=== PATIENT | male | born 1965 | race Caucasian/White ===

== ENCOUNTER → 2017-06-08 09:16 | Outpatient (CLI) | payer BC, SELFPAY ==
[2017-06-08 10:30] LABS: Absolute Lymphocyte Count 1.01 X10^3/ul (0.83-4.51); Basophil# 0.03 X10^3/uL; Basophil% 0.5 % (0-1); Eosinophil# 0.46 X10^3/uL; Eosinophils% 7.4 % (0-5); Hemoglobin 14.6 g/dl (13.0-16.5); Lymphocyte # 1.01 X10^3/ul (4.0); Lymphocyte % 16.2 % (19-41); Mean Corp Hgb Conc 32.4 g/gl (32-36); Mean Corpuscular Volume 86.2 fL (80-94); Mean Platelet Vol. 10.2 fl (6.2-12.0); Monocyte# 0.67 X10^3/uL; Monocyte% 10.7 % (0-10); Neutrophil # 4.04 X10^3/uL (2.7-7.7); Neutrophil % 64.7 % (47-70); Platelet Count 182 K/mm3 (150-450); RBC Distribution Width CV 14.9 % (11.6-14.6); RBC Distribution Width SD 47.1 fl (35.1-43.9); Red Blood Count 5.22 M/mm3 (4.6-6.2); White Blood Count 6.2 K/mm3 (4.4-11.0)
[2017-06-08 10:32] LABS: POSITIVE COUNT NO; POSITIVE DIFFERENTIAL NO; POSITIVE MORPHOLOGY NO
[2017-06-08 10:54] LABS: T3 Uptake 35 % (33-40); T4 Total, Thyroxin 8.9 ug/dL (4.5-12.1); T7 / Free Thyroxin Index 3.1 (1.4-4.5)
[2017-06-08 16:29] LABS: Erythrocyte Sedimentation Rate 25 mm/hr (0-20)
[2017-06-09 09:45] LABS: T3 Total - Triiodothyronine 1.05 ng/mL (0.6-1.81)
[2017-06-10 09:42] LABS: ANTINUCLEAR ANTIBODIES DIRECT Negative (Negative); Anti-Thyroglobulin AB < 1.0 IU/mL (0.0-0.9); Thyroglobulin, Serum Qt. 16.7 ng/mL (1.4-29.2)
[2017-06-11 02:54] LABS: Rapid Plasmin Reagin (RPR) NONREACTIVE (NONREACTIVE)
== END ==
PROVIDERS: Family Provider Family Medicine; PCP Family Medicine
DX: H05.20 Unspecified exophthalmos (principal)
CPT/HCPCS: 36415; 84432; 84436; 84443; 84479; 84480; 85025; 85652; 86038; 86592; 86800

== ENCOUNTER → 2017-06-15 13:07 | Outpatient (CLI) | payer BC, SELFPAY ==
--- NOTE | 2017-06-15 13:45 | MRI_ITS ---
STUDY: MRI ORBITS WITHOUT CONTRAST REASON FOR EXAM: Male, 51 years old. TECHNIQUE: Standardized multiplanar fat and water weighted pulse sequences were obtained. COMPARISON: None. FINDINGS: No evidence for shift of midline structures, mass effect or compression of ventricles noted. No acute intra or extra-axial hemorrhage is seen. No abnormal intracranial fluid collections identified. The basal cisterns are patent. Ventricular system appears unremarkable. Skull base vascular flow voids are patent. Mucous retention cyst in the left maxillary sinus. Air-fluid levels in the right maxillary sinus as well as the sphenoid sinus noted suggestive of acute sinusitis in an appropriate clinical setting. A few nonspecific T2/FLAIR hyperintense foci noted in the subcortical white matter however can be seen in the setting of mild chronic small vessel disease or migraine related changes. Mild edema in the optic nerve sheaths which is a nonspecific finding. No definite evidence for optic neuritis. Extraocular muscles appear symmetric however there is bilateral exophthalmos noted with increased retrobulbar fat contents. Although nonspecific can be seen in the setting of thyroid ophthalmopathy. No discrete orbital mass based on this noncontrast MR examination. No inflammatory fat stranding in the retrobulbar fat. Lacrimal glands appear symmetric. MRI/Orbit Face and Neck (Routine) IMPRESSION: No evidence for acute or subacute ischemic insult. No evidence for intracranial mass or acute hemorrhage No definite evidence for optic neuritis. Extraocular muscles appear symmetric however there is bilateral exophthalmos noted with increased retrobulbar fat contents. Although nonspecific can be seen in the setting of thyroid ophthalmopathy. A few nonspecific T2/FLAIR hyperintense foci noted in the subcortical white matter however can be seen in the setting of mild chronic small vessel disease or migraine related changes. Electronically Signed: Medhat Lee, at 0:26 EST Tel , Service support ,
== END ==
PROVIDERS: Family Provider Family Medicine; PCP Family Medicine
DX: H05.20 Unspecified exophthalmos (principal)
CPT/HCPCS: 70540

== ENCOUNTER → 2017-08-10 10:10 | Outpatient (CLI) | payer BC, SELFPAY ==
[2017-08-10 12:17] LABS: Hemoglobin 14.2 g/dl (13.0-16.5); Mean Corp Hgb Conc 31.6 g/gl (32-36); Mean Corpuscular Hgb 26.6 pg (27.0-32.0); Mean Corpuscular Volume 84.4 fL (80-94); Mean Platelet Vol. 10.4 fl (6.2-12.0); Platelet Count 205 K/mm3 (150-450); RBC Distribution Width CV 15.4 % (11.6-14.6); RBC Distribution Width SD 46.8 fl (35.1-43.9); Red Blood Count 5.33 M/mm3 (4.6-6.2); White Blood Count 6.2 K/mm3 (4.4-11.0)
[2017-08-10 12:26] LABS: ALB/GLOB Ratio 0.9 RATIO (0.9-2.4); AST(SGOT) 10 U/L (15-37); Alanine Aminotransfer ALT/SGPT 22 U/L (16-61); Albumin, Serum 3.4 g/dL (3.2-5.0); Alkaline Phosphatase 57 U/L (45-117); Anion Gap 6 (5-15); BUN 8 mg/dL (7-18); BUN/Creat Ratio 13.1 RATIO (10-20); Calcium,Total 8.8 mg/dL (8.5-10.1); Chloride 104 mmol/L (98-107); Cholesterol 94 mg/dL (200); Creatinine, Serum 0.61 mg/dL (0.70-1.30); EST Glomerular Filtration Rate 148 mL/min (>60); Est Glom Filt Rate - Afr Amer 179 mL/min (>60); Globulin 3.9 g/dL (2.2-4.2); Glucose 132 mg/dL (74-106); High Density Lipoprotein 31 mg/dL; Potassium 4.3 mmol/L (3.5-5.1); Protein, Total 7.3 g/dL (6.4-8.2); Sodium Level 139 mmol/L (136-145); Triglycerides 125 mg/dL; Very Low Density Lipoprotein 25 mg/dL (5-40)
[2017-08-10 12:29] LABS: Scan Indicated on CBC? Y/N NO
== END ==
PROVIDERS: Visit Provider Family Medicine
DX: E11.65 Type 2 diabetes mellitus with hyperglycemia (principal); I48.91 Unspecified atrial fibrillation
CPT/HCPCS: 36415; 80053; 80061; 84443; 85027

== ENCOUNTER → 2017-08-30 08:50 | Outpatient (CLI) | payer BC, SELFPAY ==
[2017-08-30 11:02] LABS: Anion Gap 8 (5-15); BUN 10 mg/dL (7-18); BUN/Creat Ratio 13.3 RATIO (10-20); Calcium,Total 9.1 mg/dL (8.5-10.1); Chloride 100 mmol/L (98-107); Creatinine, Serum 0.75 mg/dL (0.70-1.30); EST Glomerular Filtration Rate 116 mL/min (>60); Est Glom Filt Rate - Afr Amer 141 mL/min (>60); Glucose 186 mg/dL (74-106); Potassium 4.1 mmol/L (3.5-5.1); Sodium Level 137 mmol/L (136-145)
== END ==
PROVIDERS: Family Provider Family Medicine; PCP Family Medicine; Visit Provider Family Medicine
DX: I10 Essential (primary) hypertension (principal)
CPT/HCPCS: 36415; 80048

== ENCOUNTER 2018-01-11 00:52 | Emergency (ER) | payer SELFPAY ==
[2018-01-11 00:53] VITALS: BP 181/97; PULSE 95; RESP 18; TEMP 36.8; O2SAT 95; BMI 43.8
--- NOTE | 2018-01-11 01:04 | CT_ITS ---
STUDY: CT ABDOMEN AND PELVIS WITH CONTRAST REASON FOR EXAM: Male, 52 years old. Right-sided abdominal pain following coughing. RADIATION DOSAGE (If Supplied By Facility): CTDIvol = ( 18.74 ) mGy, DLP = ( 1235.88 ) mGycm TECHNIQUE: Transaxial images were obtained from the dome of the diaphragm to the symphysis pubis without oral contrast. 100 ml of Isovue 300 contrast was administered. Sagittal and coronal images were reconstructed. Individualized dose optimization techniques were used for this CT. COMPARISON: None. FINDINGS: The visualized lung bases are unremarkable. The visualized portions of the heart are within normal limits. There is mild diffuse fatty infiltration of the liver. Normal gallbladder and extrahepatic biliary system. Normal spleen. Normal pancreas. Normal bilateral adrenal glands. Normal right kidney. Normal left kidney. Normal visualized stomach. There are fluid-filled small bowel loops on the left side of the abdomen. The more distal small bowel loops are less distended. There is however no evidence of transition zone. There is fecal retention. There is no evidence of acute diverticulitis. There is non-visualization of the appendix. There is mild atherosclerotic calcification of the abdominal aorta with elongation and tortuosity, but without a demonstrated aneurysm. Normal inferior vena cava. Normal retroperitoneum. Normal urinary bladder. Prostatic calcifications. There is enlargement of the right abdominal rectus muscle compared to the left side measuring about 13 x 6 x 16 cm which could represent hematoma. There are degenerative changes in the lower thoracic spine. CT/Abdomen/Pelvis W IV Cont ONLY IMPRESSION: 1. Large mass in the right lateral anterior abdominal wall likely due to hematoma. 2. Nonspecific mildly dilated fluid-filled small bowel loops on the left side of the abdomen which could be due to mild ileus. Early small bowel obstruction is less likely. 3. Mild fatty infiltration of the liver. 4. Otherwise no demonstrated acute process. Electronically Signed: Franki Guerrero MD at 2:21 EDT Tel , Service support ,
--- NOTE | 2018-01-11 01:09 | ED.VISSUMM ---
- ER Visit Summary Date of Service: 01/11/18 Chief Complaint: Abdominal pain History of Present Illness: The patient is a 52 M who states that he is currently being treated for acute bronchitis with underlying COPD disorder. He is using Augmentin and prednisone. Patient states he has been coughing and today had a coughing fit and had severe pain on the right side of his abdomen and now notes swelling. He states that at rest he feels okay but if he coughs or moves the pain is severe. He is on Coumadin for atrial fibrillation. States his last INR was 2.7 and he has been there for months. Physical Examination: Afebrile vital signs are stable Gen: Well-nourished well-developed morbid obesity Head: Normocephalic atraumatic Eyes: Perrl EOMI ENT: TMs clear no rhinorrhea moist mucous membranes Neck: Supple no lymphadenopathy no JVD nontender CVS: Regular rate rhythm no murmurs normal S1-S2 Respiratory: No distress expiratory wheezes bilaterally chest nontender Abdomen: nondistended normal bowel sounds no masses right rectus sheath region demonstrates a firm tender area more consistent with a hematoma. Back: Nontender Extremity: Nontender no edema Skin: Normal color no rash Neuro: alert orientated ?3 CN II-XII intact normal strength sensation reflexes gait cerebellar Psych: Normal affect normal mood Test Results: Hemoglobin of 15. INR 2.9. CT the abdomen pelvis demonstrates a large rectal sheath hematoma with contrast extravasation most likely representing active bleeding. Emergency Department Course and Treatment: Patient received vitamin K and ice was applied. He also received a DuoNeb. I spoke with surgery (Dr. Bagley) who recommends transfer to tertiary care. Patient chooses [facility]. They were contacted and has been accepted. Impression: 1. Rectus sheath hematoma with active bleeding 2. Coumadin coagulopathy 3. COPD/bronchitis This note was generated with [employer] dictation software. It may contain incorrect words, spelling, and punctuation that were not noted in review of the chart prior to signing ED Disposition - Plan for ED Patient: Chief Complaint: Abd Pain Referrals: Al Mondragon MD [Primary Care Provider] -
--- NOTE | 2018-01-11 01:12 | ED.DCSUM_ITS ---
- ER Visit Summary Date of Service: 01/11/18 Chief Complaint: Abdominal pain History of Present Illness: The patient is a 52 M who states that he is currently being treated for acute bronchitis with underlying COPD disorder. He is using Augmentin and prednisone. Patient states he has been coughing and tod ay had a coughing fit and had severe pain on the right side of his abdomen and now notes swelling. He states that at rest he feels okay but if he coughs or moves the pain is severe. He is on Coumadin for atrial fibrillation. States his last INR was 2.7 and he has been there for months. Physical Examination: Afebrile vital signs are stable Gen: Well-nourished well-developed morbid obesity Head: Normocephalic atraumatic Eyes: Perrl EOMI ENT: TMs clear no rhinorrhea moist mucous membranes Neck: Supple no lymphadenopathy no JVD nontender CVS: Regular rate rhythm no murmurs normal S1-S2 Respiratory: No distress expiratory wheezes bilaterally chest nontender Abdomen: nondistended normal bowel sounds no masses right rectus sheath region demonstrates a firm tender area more consistent with a hematoma. Back: Nontender Extremity: Nontender no edema Skin: Normal color no rash Neuro: alert orientated ?3 CN II-XII intact normal strength sensation reflexes gait cerebellar Psych: Normal affect normal mood Test Results: Hemoglobin of 15. INR 2.9. CT the abdomen pelvis demonstrates a large rectal sheath hematoma with contrast extravasation most likely representing active bleeding. Emergency Department Course and Treatment: Patient received vitamin K and ice was applied. He also received a DuoNeb. I spoke with surgery (Dr. Bagley) who recommends transfer to tertiary care. Patient chooses [facility]. They were contacted and has been accepted. Impression: 1. Rectus sheath hematoma with active bleeding 2. Coumadin coagulopathy 3. COPD/bronchitis This note was generated with [employer] dictation software. It may contain incorrect words, spelling, and punctuation that were not noted in review of the chart prior to signing ED Disposition - Plan for ED Patient: Chief Complaint: Abd Pain Referrals: Al Mondragon MD [Primary Care Provider] -
[2018-01-11 01:26] LABS: Absolute Lymphocyte Count 1.79 X10^3/ul (0.83-4.51); Absolute Neutrophil Count 7.8 X10^3/uL (2.0-7.7); Basophil# 0.05 X10^3/uL; Basophil% 0.4 % (0-1); Eosinophil# 0.48 X10^3/uL; Eosinophils% 4.1 % (0-5); Hematocrit 47.8 % (40-54); Hemoglobin 15.5 g/dl (13.0-16.5); International Normalized Ratio 2.9; Lymphocyte # 1.79 X10^3/ul (4.0); Lymphocyte % 15.3 % (19-41); Mean Corp Hgb Conc 32.4 g/gl (32-36); Mean Corpuscular Hgb 27.1 pg (27.0-32.0); Mean Corpuscular Volume 83.7 fL (80-94); Mean Platelet Vol. 9.4 fl (6.2-12.0); Monocyte# 1.41 X10^3/uL; Monocyte% 12.1 % (0-10); Neutrophil # 7.84 X10^3/uL (2.7-7.7); Neutrophil % 67.2 % (47-70); Platelet Count 227 K/mm3 (150-450); Prothrombin Time (Protime)PT. 30.3 SECONDS (11.7-14.9); RBC Distribution Width CV 14.9 % (11.6-14.6); RBC Distribution Width SD 45.1 fl (35.1-43.9); Red Blood Count 5.71 M/mm3 (4.6-6.2); White Blood Count 11.7 K/mm3 (4.4-11.0)
[2018-01-11 01:27] LABS: Differential Indicated SCAN CRITERIA MET; POSITIVE COUNT NO; POSITIVE DIFFERENTIAL NO; POSITIVE MORPHOLOGY YES
[2018-01-11 01:33] LABS: Anion Gap 7 (5-15); BUN 18 mg/dL (7-18); BUN/Creat Ratio 21.4 RATIO (10-20); Calcium,Total 9.3 mg/dL (8.5-10.1); Chloride 100 mmol/L (98-107); Creatinine, Serum 0.84 mg/dL (0.70-1.30); EST Glomerular Filtration Rate 102 mL/min (>60); Est Glom Filt Rate - Afr Amer 123 mL/min (>60); Estimated Creatinine Clearance 110.81 ml/min; Glucose 286 mg/dL (74-106); Potassium 4.2 mmol/L (3.5-5.1); Sodium Level 136 mmol/L (136-145)
--- NOTE | 2018-01-11 01:49 | EKG12_ITS ---
Test Reason : ABD PAIN Blood Pressure : / mmHG Vent. Rate : 087 BPM Atrial Rate : 125 BPM P-R Int : 000 ms QRS Dur : 162 ms QT Int : 400 ms P-R-T Axes : 000 047 014 degrees QTc Int : 481 ms Atrial fibrillation Right bundle branch block Abnormal ECG Confirmed by YARELY GARCIA, GLORIA ([id number]), senior technical editor JAZZMINE AVILA ([id number] on 01/17/2018 3:26:32 PM Referred By: JERI Confirmed By:GLORIA PRITCHETT MD
[2018-01-11 01:57] LABS: Differential Comment SCANNED
[2018-01-11 02:59] VITALS: PULSE 96; RESP 18
[2018-01-11] MEDS: Ipratropium/Albuterol Sulfate 3 ML AMPUL.NEB INHALATION (02:59)
[2018-01-11 03:41] VITALS: BP 145/71; PULSE 91; RESP 16; O2SAT 93
[2018-01-11 05:14] VITALS: BP 146/86; PULSE 97; RESP 22; O2SAT 97
== END 2018-01-11 05:16 | disposition short-term general hospital (02) ==
PROVIDERS: Emergency Provider Emergency Medicine; Family Provider Family Medicine; PCP Family Medicine
DX: S30.1XXA Contusion of abdominal wall, initial encounter (principal); X58.XXXA Exposure to other specified factors, initial encounter; Y93.9 Activity, unspecified; Y92.9 Unspecified place or not applicable; R79.1 Abnormal coagulation profile; J44.9 Chronic obstructive pulmonary disease, unspecified; I48.91 Unspecified atrial fibrillation; E66.01 Morbid (severe) obesity due to excess calories; I45.10 Unspecified right bundle-branch block; E11.9 Type 2 diabetes mellitus without complications; I10 Essential (primary) hypertension; E78.00 Pure hypercholesterolemia, unspecified; Z79.01 Long term (current) use of anticoagulants; Z79.84 Long term (current) use of oral hypoglycemic drugs; Z79.899 Other long term (current) drug therapy; Z87.891 Personal history of nicotine dependence
CPT/HCPCS: 74177; 80048; 85025; 85610; 93005; 94640; 96365; 99284; J7050; Q9967; A4216; J3490

== ENCOUNTER → 2018-01-17 12:58 | Outpatient (CLI) | payer SELFPAY ==
[2018-01-17 14:00] LABS: Hematocrit 42.4 % (40-54); Hemoglobin 13.5 g/dl (13.0-16.5); Mean Corp Hgb Conc 31.8 g/gl (32-36); Mean Corpuscular Volume 84.8 fL (80-94); Mean Platelet Vol. 10.1 fl (6.2-12.0); Platelet Count 249 K/mm3 (150-450); RBC Distribution Width CV 15.7 % (11.6-14.6); RBC Distribution Width SD 47.5 fl (35.1-43.9); White Blood Count 9.1 K/mm3 (4.4-11.0)
[2018-01-17 14:01] LABS: Scan Indicated on CBC? Y/N NO
[2018-01-17 14:07] LABS: Prothrombin Time (Protime)PT. 13.1 SECONDS (11.7-14.9)
== END ==
PROVIDERS: Family Provider Family Medicine; PCP Family Medicine; Referring Provider Family Medicine; Visit Provider Family Medicine
DX: I48.91 Unspecified atrial fibrillation (principal); S30.1XXA Contusion of abdominal wall, initial encounter
CPT/HCPCS: 36415; 85027; 85610

== ENCOUNTER → 2018-03-14 08:58 | Outpatient (CLI) | payer OTHER, SELFPAY ==
--- NOTE | 2018-03-14 09:11 | US_ITS ---
STUDY: ABDOMINAL ULTRASOUND - RIGHT UPPER QUADRANT REASON FOR VISIT: Male, 52 years old. Hematoma TECHNIQUE: Ultrasound evaluation of the right upper quadrant was performed with real-time and static salomon-scale imaging. TECHNICAL QUALITY: Adequate. COMPARISON: None. FINDINGS: There is a large hypoechoic area noted within the right rectus sheath measuring approximately 8 x 8.5 x 1.3 cm consistent with known intramuscular hematoma This has decreased in size since prior study US/Abdomen Limited IMPRESSION: Persistent large intramuscular hematoma within the right lateral rectus sheath with interval improvement since previous exam Electronically Signed: Nader Chaparro MD at 22:43 EST , Service support ,
--- OUTSIDE RECORDS SUMMARY | 2018-05-07 11:47 | XMS RPT_ITS ---
:1965 Author Organization OHIP Support Name Relationship Address Phone KENNETHMANGO Unavailable [address] + [place] [address] [facility] Unavailable [address] + [place] [address] VICARS, PAT Unavailable [address] + [place] [address] MANGO COOPER Unavailable [address] + [place] [address] [facility] Unavailable [address] + [place] [address] VICARS, PAT Unavailable [address] + [place] [address] MANGO RUIZ Unavailable [address] + [place] [address] MANGO RUIZ Unavailable [address] + [place] [address] MARIA DE JESUS RUIZ Unavailable Unavailable Unavailable MANGO COOPER Unavailable [address] + [place] [address] [facility] Unavailable [address] + [place] [address] VICARS, PAT Unavailable [address] + [place] [address] LIUDMILA LOO Unavailable [address] + [place] [address] MANGO COOPER Unavailable [address] [phone] [place] [address] VICARS, PAT Unavailable [address] + [place] [address] LIUDMILA LOO Unavailable [address] + [place] [address] COOPER, MANGO Unavailable [address] [phone] [place] [address] VICARS, PAT Unavailable [address] + [place] [address] LIUDMILA LOO Unavailable [address] + [place] [address] COOPER, MANGO Unavailable [address] [phone] [place] [address] VICARS, PAT Unavailable [address] + [place] [address] LIUDMILA LOO Unavailable [address] + [place] [address] COOPER, MANGO Unavailable [address] + [place] [address] VICARS, PAT Unavailable [address] + [place] [address] Care Team Providers Name Role Phone LINDA MONDRAGON Primary Care Unavailable CONSULT, SURGERY - GENERAL (EMERGENT) Consulting Unavailable LORA RAHMAN Admitting Unavailable LORA RAHMAN Attending Unavailable GODFREY DIAMOND Attending Unavailable GODFREY DIAMOND Attending Unavailable GODFREY DIAMOND Referring Unavailable Linda Mondragon Primary Care Unavailable GERARDO REN Attending Unavailable GERARDO REN Referring Unavailable GERARDO REN Attending Unavailable GERARDO REN Referring Unavailable Linda Mondragon Primary Care Unavailable Linda Mondragon Attending Unavailable Linda Mondragon Attending Unavailable Linda Mondragon Primary Care Unavailable Linda Mondragon Primary Care Unavailable Ehsan Rangel Attending Unavailable Linda Mondragon Attending Unavailable Linda Mondragon Referring Unavailable Linda Mondragon Primary Care Unavailable Linda Mondragon Attending Unavailable Linda Mondragon Referring Unavailable Linda Mondragon Primary Care Unavailable PROBLEMS PROBLEMS DATE TYPE CONDITION / CODE ATTENDING STATUS SOURCE 01/17/2018 Unknown I48.91 - Myesha Mondragon Unspecified atrial [facility] fibrillation / Hospital I48.91(ICD-10) Repository 01/17/2018 Unknown S36.92XA - Giancarlo [facility] Cont[facility] Rep[facility] organ, initial encounter / S36.92XA(ICD-10) 01/14/2018 Admitting Contusion of LORA RAHMAN Active [facility] diagnosis abdominal wall, [facility] initial encounter [facility] / S30.1XXA(ICD-10) Center Repository 01/11/2018 Admitting Chronic DUGGIRALA, 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[facility] diagnosis obstructive [facility] pulmonary disease [facility] with (acute) Center exacerbation / Repository J44.1(ICD-10) 04/15/2009 Admitting Paroxysmal atrial DUGGIRALA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[facility] diagnosis fibrillation / S [facility] I48.0(ICD-10) [facility] Repository 12/08/2017 Unknown 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 - GERARDO REN [facility] 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 / Hospital H05.20(ICD-10) Repository PROCEDURES PROCEDURES No Procedure Records FoundRESULTS RESULTS ABDOMEN LIMITED Observed: 03/14/2018 Status: F Source: [place] 9:11 AM [facility] REPOSITORY [facility] Imaging Services [address] [place] [address] Abdomen Limited MR#: [id number] Acct: [id number] Name: MARIA DE JESUS RUIZ Rep #: [id number] : 1965 M 52 From: Nader Chaparro MD PCP: Linda Mondragon MD Status: REG CLI Study: Abdomen Limited Date of Exam: 03/14/18 Exam# [id number] Ordering Dr: Al Mondragon MD STUDY: ABDOMINAL ULTRASOUND - RIGHT UPPER QUADRANT REASON FOR VISIT: Male, 52 years old. Hematoma TECHNIQUE: Ultrasound evaluation of the right upper quadrant was performed with real-time and static salomon-scale imaging. TECHNICAL QUALITY: Adequate. COMPARISON: None. FINDINGS: There is a large hypoechoic area noted within the right rectus sheath measuring approximately 8 x 8.5 x 1.3 cm consistent with known intramuscular hematoma This has decreased in size since prior study US/Abdomen Limited IMPRESSION: Persistent large intramuscular hematoma within the right lateral rectus sheath with interval improvement since previous exam Electronically Signed: Nader Chaparro MD at 22:43 EST , Service support , CC: Linda Mondragon MD Hand Shaper: Signed 12 LEAD ELECTROCARDIOGRAM Observed: 01/17/2018 Status: F Source: [place] 3:26 PM [facility] REPOSITORY [facility] Cardiovascular Services [address] [place] [address] 12 Lead EKG 01/11/184 MR#: [id number] Acct: [id number] Name: MARIA DE JESUS RUIZ Rep #: [id number] : 1965 52 From: Reggie Short MD Attending Dr: Status: DEP ER Ordering Dr: Ehsan Rangel DO Date: 01/11/18 Location: ED Sex: M C Admitted: Test Reason : ABD PAIN Blood Pressure : / mmHG Vent. Rate : 087 BPM Atrial Rate : 125 BPM P-R Int : 000 ms QRS Dur : 162 ms QT Int : 400 ms P-R-T Axes : 000 047 014 degrees QTc Int : 481 ms Atrial fibrillation Right bundle branch block Abnormal ECG Confirmed by YARELY GARCIA, REGGIE ([id number]), metropolitan editor JAZZMINE AVILA ([id number]) on 01/17/2018 3:26:32 PM Referred By: JERI Confirmed By:REGGIE SHORT MD 01/17/18 1526 Date Reggie Short MD CC: Linda Mondragon MD; Ehsan Rangel DO Signed CBC-COMPLETE BLOOD CNT Collected: 01/17/2018 Status: F Source: [place] NO DIFF 1:07 PM [facility] REPOSITORY TYPE CODE TESTS RESULT OUT OF RANGE REFERENCE UNITS LAB L100.1000 4.4-11.0 K/mm3 Normal WBC 9.1 LAB L100.1200 4.6-6.2 M/mm3 Normal RBC 5.00 LAB L100.1300 13.0-16.5 g/dl Normal HGB 13.5 LAB L100.1400 40-54 % Normal HCT 42.4 LAB L100.1500 80-94 fL Normal MCV 84.8 LAB L100.1600 27.0-32.0 pg Normal MCH 27.0 LAB L100.1700 32-36 g/gl Low MCHC 31.8 LAB L100.1810 11.6-14.6 % High RDW CV 15.7 LAB L100.1820 35.1-43.9 fl High RDW SD 47.5 LAB L100.1900 150-450 K/mm3 Normal PLT 249 LAB L100.2000 6.2-12.0 fl Normal MPV 10.1 Performed By: #### L100.0500, L300.3900 #### [facility] [address] [facility]. [place], [place], [address] PROTHROMBIN TIME W/INR Collected: 01/17/2018 Status: F Source: [place] 1:07 PM [facility] REPOSITORY TYPE CODE TESTS RESULT OUT OF RANGE REFERENCE UNITS LAB L300.4150 11.7-14.9 SECONDS Normal PROTIME 13.1 LAB L300.4200 Normal INR 1.0 Performed By: #### L100.0500, L300.3900 #### [facility] [address] [facility] [place], [address] *POC GLUCOSE BATTERY Collected: 01/16/2018 Status: F Source: [facility] 4:33 PM [facility] REPOSITORY TYPE CODE TESTS RESULT OUT OF REFERENCE UNITS RANGE LAB GLUP 70-99 mg/dL High Glucose (poc 245 device) Result Comment: No BRAVE per RN: PATIENT TYPE LAB PCSTYP *POC Capillary SAMPLE TYPE Blood *POC GLUCOSE BATTERY Collected: 01/16/2018 Status: F Source: [facility] 11:31 AM [facility] REPOSITORY TYPE CODE TESTS RESULT OUT OF REFERENCE UNITS RANGE LAB GLUP 70-99 mg/dL High Glucose (poc 238 device) Result Comment: No BRAVE per RN: PATIENT TYPE LAB PCSTYP *POC Capillary SAMPLE TYPE Blood *POC GLUCOSE BATTERY Collected: 01/16/2018 Status: F Source: [facility] 8:15 AM [facility] REPOSITORY TYPE CODE TESTS RESULT OUT OF REFERENCE UNITS RANGE LAB GLUP 70-99 mg/dL High Glucose (poc 211 device) Result Comment: No BRAVE per RN: PATIENT TYPE LAB PCSTYP *POC Capillary SAMPLE TYPE Blood HEMOGRAM (CBC AND Collected: 01/16/2018 Status: F Source: [facility] PLATE[place]) 1:58 AM [facility] REPOSITORY TYPE CODE TESTS RESULT OUT OF REFERENCE UNITS RANGE LAB WBC 4.23-9.07 K/uL WBC Count 9.05 LAB RBC 4.63-6.08 M/uL RBC Count 5.05 LAB HGB 13.7-17.5 g/dL Hemoglobin 13.9 LAB HCT 40.1-51.0 % Hematocrit 42.3 LAB MCV 79.0-92.2 fL Mean Cell Volume 83.8 LAB MCH 25.7-32.2 pg Mean Cell Hgb 27.5 LAB MCHC 32.3-36.5 g/dL Mean Cell Hgb Conc 32.9 LAB RDW 11.6-14.4 % RBC High Distribution 15.5 LAB PLT 163-337 K/uL Platelet Count 223 LAB MPV 9.4-12.4 fL Mean Platelet Volume 9.8 LAB NRBC 0.0-0.2 /100 WBC NUCLEATED RBC 0.0 Performed By: #### HEMOGC, CHM7 #### [facility] [address] [place] [address] [place] [address] CHEM 7 Collected: 01/16/2018 Status: F Source: [facility] 1:58 AM [facility] REPOSITORY TYPE CODE TESTS RESULT OUT OF REFERENCE UNITS RANGE LAB BUN 7-22 mg/dL BUN 12 LAB NA 133-143 mmol/L Low Sodium 131 LAB K 3.5-5.0 mmol/L Potassium 4.2 LAB CL 98-108 mmol/L Low Chloride 97 LAB CO2 22-30 mmol/L Carbon Dioxide 23 LAB GLUC 70-99 mg/dL Glucose High 214 LAB CREA 0.70-1.30 mg/dL Low Creatinine 0.47 LAB GAP 7-17 mmol/L Anion Gap 15 LAB BC BUN/CREA Ratio 26 LAB [facility] 278-305 mOsm/kg Osmolality 283 (Calc) LAB GFR >60 mL/min/1.73 sqM Est GFR,non >60 [place] LAB GFRA >60 mL/min/1.73 sqM Est GFR, >60 Performed By: #### HEMOGC, CHM7 #### [facility] [address] [place], [place] [address] [place] [address] [address] [place] [address] *POC GLUCOSE BATTERY Collected: 01/15/2018 Status: F Source: [facility] 7:52 PM [facility] REPOSITORY TYPE CODE TESTS RESULT OUT OF REFERENCE UNITS RANGE LAB GLUP 70-99 mg/dL High Glucose (poc 278 device) Result Comment: No BRAVE per RN: PATIENT TYPE LAB PCSTYP *POC Capillary SAMPLE TYPE Blood *POC GLUCOSE BATTERY Collected: 01/15/2018 Status: F Source: [facility] 4:44 PM [facility] REPOSITORY TYPE CODE TESTS RESULT OUT OF REFERENCE UNITS RANGE LAB GLUP 70-99 mg/dL High Glucose (poc 205 device) Result Comment: No BRAVE per RN: PATIENT TYPE LAB PCSTYP *POC Capillary SAMPLE TYPE Blood *POC GLUCOSE BATTERY Collected: 01/15/2018 Status: F Source: [facility] 11:49 AM [facility] REPOSITORY TYPE CODE TESTS RESULT OUT OF REFERENCE UNITS RANGE LAB GLUP 70-99 mg/dL High Glucose (poc 242 device) Result Comment: No BRAVE per RN: PATIENT TYPE LAB PCSTYP *POC Capillary SAMPLE TYPE Blood *POC GLUCOSE BATTERY Collected: 01/15/2018 Status: F Source: [facility] 7:45 AM [facility] REPOSITORY TYPE CODE TESTS RESULT OUT OF REFERENCE UNITS RANGE LAB GLUP 70-99 mg/dL High Glucose (poc 210 device) Result Comment: No BRAVE per RN: PATIENT TYPE LAB PCSTYP *POC Capillary SAMPLE TYPE Blood HEMOGRAM (CBC AND Collected: 01/15/2018 Status: F Source: [facility] [place]) 4:23 AM [facility] REPOSITORY TYPE CODE TESTS RESULT OUT OF REFERENCE UNITS RANGE LAB WBC 4.23-9.07 K/uL WBC Count 7.91 LAB RBC 4.63-6.08 M/uL RBC Count 4.73 LAB HGB 13.7-17.5 g/dL Low Hemoglobin 12.8 LAB HCT 40.1-51.0 % Low Hematocrit 39.8 LAB MCV 79.0-92.2 fL Mean Cell Volume 84.1 LAB MCH 25.7-32.2 pg Mean Cell Hgb 27.1 LAB MCHC 32.3-36.5 g/dL Low Mean Cell Hgb Conc 32.2 LAB RDW 11.6-14.4 % RBC High Distribution 15.5 LAB PLT 163-337 K/uL Platelet Count 213 LAB MPV 9.4-12.4 fL Mean Platelet Volume 9.7 LAB NRBC 0.0-0.2 /100 WBC NUCLEATED RBC 0.0 Performed By: #### HEMOGC, CHM7 #### [facility] [address] [place] [address] [place] [address] [place] [address] CHEM 7 Collected: 01/15/2018 Status: F Source: [facility] 4:23 AM [facility] REPOSITORY TYPE CODE TESTS RESULT OUT OF REFERENCE UNITS RANGE LAB BUN 7-22 mg/dL BUN 15 LAB NA 133-143 mmol/L Sodium 134 LAB K 3.5-5.0 mmol/L Potassium 3.7 LAB CL 98-108 mmol/L Chloride 99 LAB CO2 22-30 mmol/L Carbon Dioxide 26 LAB GLUC 70-99 mg/dL Glucose High 223 LAB CREA 0.70-1.30 mg/dL Low Creatinine 0.50 LAB GAP 7-17 mmol/L Anion Gap 13 LAB BC BUN/CREA Ratio 30 LAB [facility] 278-305 mOsm/kg Osmolality 290 (Calc) LAB GFR >60 mL/min/1.73 sqM Est GFR,non >60 [place] LAB GFRA >60 mL/min/1.73 sqM Est GFR, >60 Performed By: #### HEMOGC, CHM7 #### [facility] [address] [place] [address] [place] [address] [address] [place] [address] *POC GLUCOSE BATTERY Collected: 01/14/2018 Status: F Source: [facility] 10:48 PM [facility] REPOSITORY TYPE CODE TESTS RESULT OUT OF REFERENCE UNITS RANGE LAB GLUP 70-99 mg/dL High Glucose (poc 281 device) Result Comment: No BRAVE per RN: PATIENT TYPE LAB PCSTYP *POC Capillary SAMPLE TYPE Blood *POC GLUCOSE BATTERY Collected: 01/14/2018 Status: F Source: [facility] 4:46 PM [facility] REPOSITORY TYPE CODE TESTS RESULT OUT OF REFERENCE UNITS RANGE LAB GLUP 70-99 mg/dL High Glucose (poc 192 device) Result Comment: No BRAVE per RN: PATIENT TYPE LAB PCSTYP *POC Capillary SAMPLE TYPE Blood *POC GLUCOSE BATTERY Collected: 01/14/2018 Status: F Source: [facility] 11:46 AM [facility] REPOSITORY TYPE CODE TESTS RESULT OUT OF REFERENCE UNITS RANGE LAB GLUP 70-99 mg/dL High Glucose (poc 163 device) Result Comment: No BRAVE per RN: PATIENT TYPE LAB PCSTYP *POC Capillary SAMPLE TYPE Blood *POC GLUCOSE BATTERY Collected: 01/14/2018 Status: F Source: [facility] 7:55 AM [facility] REPOSITORY TYPE CODE TESTS RESULT OUT OF REFERENCE UNITS RANGE LAB GLUP 70-99 mg/dL High Glucose (poc 164 device) Result Comment: No BRAVE per RN: PATIENT TYPE LAB PCSTYP *POC Capillary SAMPLE TYPE Blood HEMOGRAM (CBC AND Collected: 01/14/2018 Status: F Source: [facility] [place]) 2:55 AM [facility] REPOSITORY TYPE CODE TESTS RESULT OUT OF REFERENCE UNITS RANGE LAB WBC 4.23-9.07 K/uL WBC Count High 11.68 LAB RBC 4.63-6.08 M/uL RBC Count 5.10 LAB HGB 13.7-17.5 g/dL Hemoglobin 13.8 LAB HCT 40.1-51.0 % Hematocrit 42.5 LAB MCV 79.0-92.2 fL Mean Cell Volume 83.3 LAB MCH 25.7-32.2 pg Mean Cell Hgb 27.1 LAB MCHC 32.3-36.5 g/dL Mean Cell Hgb Conc 32.5 LAB RDW 11.6-14.4 % RBC High Distribution 15.3 LAB PLT 163-337 K/uL Platelet Count 239 LAB MPV 9.4-12.4 fL Mean Platelet Volume 9.5 LAB NRBC 0.0-0.2 /100 WBC NUCLEATED RBC 0.0 Performed By: #### HEMOGC, CHM7 #### [facility] [address] [place] [address] CHEM 7 Collected: 01/14/2018 Status: F Source: [facility] 2:55 AM [facility] REPOSITORY TYPE CODE TESTS RESULT OUT OF REFERENCE UNITS RANGE LAB BUN 7-22 mg/dL BUN 19 LAB NA 133-143 mmol/L Sodium 133 LAB K 3.5-5.0 mmol/L Low Potassium 3.4 LAB CL 98-108 mmol/L Low Chloride 97 LAB CO2 22-30 mmol/L Carbon Dioxide 25 LAB GLUC 70-99 mg/dL Glucose High 182 LAB CREA 0.70-1.30 mg/dL Low Creatinine 0.57 LAB GAP 7-17 mmol/L Anion Gap 14 LAB BC BUN/CREA Ratio 33 LAB [facility] 278-305 mOsm/kg Osmolality 286 (Calc) LAB GFR >60 mL/min/1.73 sqM Est GFR,non >60 [place] LAB GFRA >60 mL/min/1.73 sqM Est GFR, >60 Performed By: #### HEMOGC, CHM7 #### [facility] [place] [address] *POC GLUCOSE BATTERY Collected: 01/13/2018 Status: F Source: [facility] 9:59 PM [facility] REPOSITORY TYPE CODE TESTS RESULT OUT OF REFERENCE UNITS RANGE LAB GLUP 70-99 mg/dL High Glucose (poc 290 device) Result Comment: Notified RNread back No BRAVE per RN: PATIENT TYPE LAB PCSTYP *POC Capillary SAMPLE TYPE Blood *POC GLUCOSE BATTERY Collected: 01/13/2018 Status: F Source: [facility] 4:20 PM [facility] REPOSITORY TYPE CODE TESTS RESULT OUT OF REFERENCE UNITS RANGE LAB GLUP 70-99 mg/dL High Glucose (poc 160 device) Result Comment: No BRAVE per RN: PATIENT TYPE LAB PCSTYP *POC Capillary SAMPLE TYPE Blood *POC GLUCOSE BATTERY Collected: 01/13/2018 Status: F Source: [facility] 11:02 AM [facility] REPOSITORY TYPE CODE TESTS RESULT OUT OF REFERENCE UNITS RANGE LAB GLUP 70-99 mg/dL High Glucose (poc 224 device) Result Comment: No BRAVE per RN: PATIENT TYPE LAB PCSTYP *POC Capillary SAMPLE TYPE Blood *POC GLUCOSE BATTERY Collected: 01/13/2018 Status: F Source: [facility] 7:48 AM [facility] REPOSITORY TYPE CODE TESTS RESULT OUT OF REFERENCE UNITS RANGE LAB GLUP 70-99 mg/dL High Glucose (poc 145 device) Result Comment: No BRAVE per RN: PATIENT TYPE LAB PCSTYP *POC Capillary SAMPLE TYPE Blood HEMOGRAM (CBC AND Collected: 01/13/2018 Status: F Source: [facility] PLATE[place]) 2:34 AM [facility] REPOSITORY TYPE CODE TESTS RESULT OUT OF REFERENCE UNITS RANGE LAB WBC 4.23-9.07 K/uL WBC Count High 16.71 LAB RBC 4.63-6.08 M/uL RBC Count 5.71 LAB HGB 13.7-17.5 g/dL Hemoglobin 15.3 LAB HCT 40.1-51.0 % Hematocrit 47.3 LAB MCV 79.0-92.2 fL Mean Cell Volume 82.8 LAB MCH 25.7-32.2 pg Mean Cell Hgb 26.8 LAB MCHC 32.3-36.5 g/dL Mean Cell Hgb Conc 32.3 LAB RDW 11.6-14.4 % RBC High Distribution 16.3 LAB PLT 163-337 K/uL Platelet Count 292 LAB MPV 9.4-12.4 fL Mean Platelet Volume 9.9 LAB NRBC 0.0-0.2 /100 WBC NUCLEATED RBC 0.0 Performed By: #### HEMOGC, CHM7, A1CB #### [facility] [address] [place] [address] [place] [address] CHEM 7 Collected: 01/13/2018 Status: F Source: [facility] 2:34 AM [facility] REPOSITORY TYPE CODE TESTS RESULT OUT OF REFERENCE UNITS RANGE LAB BUN 7-22 mg/dL BUN 19 LAB NA 133-143 mmol/L Sodium 133 LAB K 3.5-5.0 mmol/L Potassium 4.0 LAB CL 98-108 mmol/L Low Chloride 95 LAB CO2 22-30 mmol/L Carbon Dioxide 23 LAB GLUC 70-99 mg/dL Glucose High 157 LAB CREA 0.70-1.30 mg/dL Low Creatinine 0.56 LAB GAP 7-17 mmol/L Anion High Gap 19 LAB BC BUN/CREA Ratio 34 LAB [facility] 278-305 mOsm/kg Osmolality 286 (Calc) LAB GFR >60 mL/min/1.73 sqM Est GFR,non >60 [place] LAB GFRA >60 mL/min/1.73 sqM Est GFR, >60 Performed By: #### HEMOGC, CHM7, A1CB #### [facility] [address] [place] [address] [facility] [address] [place] [address] HEMOGLOBIN A1C Collected: 01/13/2018 Status: F Source: [facility] 2:34 AM [facility] REPOSITORY TYPE CODE TESTS RESULT OUT OF REFERENCE UNITS RANGE LAB A1C 4.7-5.6 % High Hemoglobin A1C 8.1 LAB EAG mg/dL Estimated 186 Average Glucose Performed By: #### HEMOGC, CHM7, A1CB #### [facility] [address] [place] [address] [place] [address] [address] [place] [address] *POC GLUCOSE BATTERY Collected: 01/12/2018 Status: F Source: [facility] 8:27 PM [facility] REPOSITORY TYPE CODE TESTS RESULT OUT OF REFERENCE UNITS RANGE LAB GLUP 70-99 mg/dL High Glucose (poc 204 device) Result Comment: No BRAVE per RN: PATIENT TYPE LAB PCSTYP *POC Capillary SAMPLE TYPE Blood HGB & HCT Collected: 01/12/2018 Status: F Source: [facility] 5:45 PM [facility] REPOSITORY TYPE CODE TESTS RESULT OUT OF REFERENCE UNITS RANGE LAB HGB 13.7-17.5 g/dL Hemoglobin 13.9 LAB HCT 40.1-51.0 % Hematocrit 43.2 Performed By: #### HH #### [facility] [address] [place] [address] [place] [address] *POC GLUCOSE BATTERY Collected: 01/12/2018 Status: F Source: [facility] 4:52 PM [facility] REPOSITORY TYPE CODE TESTS RESULT OUT OF REFERENCE UNITS RANGE LAB GLUP 70-99 mg/dL High Glucose (poc 231 device) Result Comment: No BRAVE per RN: PATIENT TYPE LAB PCSTYP *POC Capillary SAMPLE TYPE Blood *POC GLUCOSE BATTERY Collected: 01/12/2018 Status: F Source: [facility] 12:18 PM [facility] REPOSITORY TYPE CODE TESTS RESULT OUT OF REFERENCE UNITS RANGE LAB GLUP 70-99 mg/dL High Glucose (poc 239 device) Result Comment: No BRAVE per RN: PATIENT TYPE LAB PCSTYP *POC Capillary SAMPLE TYPE Blood *POC GLUCOSE BATTERY Collected: 01/12/2018 Status: F Source: [facility] 7:59 AM [facility] REPOSITORY TYPE CODE TESTS RESULT OUT OF REFERENCE UNITS RANGE LAB GLUP 70-99 mg/dL High Glucose (poc 249 device) Result Comment: No BRAVE per RN: PATIENT TYPE LAB PCSTYP *POC Capillary SAMPLE TYPE Blood HEMOGRAM (CBC AND Collected: 01/12/2018 Status: F Source: [facility] [place]) 2:41 AM [facility] REPOSITORY TYPE CODE TESTS RESULT OUT OF REFERENCE UNITS RANGE LAB WBC 4.23-9.07 K/uL WBC Count High 16.43 LAB RBC 4.63-6.08 M/uL RBC Count 5.61 LAB HGB 13.7-17.5 g/dL Hemoglobin 15.2 LAB HCT 40.1-51.0 % Hematocrit 46.8 LAB MCV 79.0-92.2 fL Mean Cell Volume 83.4 LAB MCH 25.7-32.2 pg Mean Cell Hgb 27.1 LAB MCHC 32.3-36.5 g/dL Mean Cell Hgb Conc 32.5 LAB RDW 11.6-14.4 % RBC High Distribution 15.9 LAB PLT 163-337 K/uL Platelet Count 290 LAB MPV 9.4-12.4 fL Mean Platelet Volume 9.7 LAB NRBC 0.0-0.2 /100 WBC NUCLEATED RBC 0.1 Performed By: #### [facility], [facility] #### [facility] [address] [place] [address] [address] [place] [id number] CHEM 7 Collected: 01/12/2018 Status: F Source: [facility] 2:41 AM [facility] REPOSITORY TYPE CODE TESTS RESULT OUT OF REFERENCE UNITS RANGE LAB BUN 7-22 mg/dL BUN 21 LAB NA 133-143 mmol/L Sodium 136 LAB K 3.5-5.0 mmol/L Potassium 4.4 LAB CL 98-108 mmol/L Chloride 100 LAB CO2 22-30 mmol/L Low Carbon Dioxide 21 LAB GLUC 70-99 mg/dL Glucose High 230 LAB CREA 0.70-1.30 mg/dL Low Creatinine 0.67 LAB GAP 7-17 mmol/L Anion High Gap 19 LAB BC BUN/CREA Ratio 31 LAB [facility] 278-305 mOsm/kg Osmolality 297 (Calc) LAB GFR >60 mL/min/1.73 sqM Est GFR,non >60 [place] LAB GFRA >60 mL/min/1.73 sqM Est GFR, >60 Performed By: #### HEMOGC, [facility] #### [facility] [address] [place] [address] [facility] [address] [place], [place] [address] *POC GLUCOSE BATTERY Collected: 01/11/2018 Status: F Source: [facility] 10:37 PM [facility] REPOSITORY TYPE CODE TESTS RESULT OUT OF REFERENCE UNITS RANGE LAB GLUP 70-99 mg/dL High Glucose (poc 289 device) Result Comment: No BRAVE per RN: PATIENT TYPE LAB PCSTYP *POC Capillary SAMPLE TYPE Blood HGB/HCT - CHRI Collected: 01/11/2018 Status: F Source: [facility] 8:14 PM [facility] REPOSITORY TYPE CODE TESTS RESULT OUT OF REFERENCE UNITS RANGE LAB HGB 13.7-17.5 g/dL Hemoglobin 16.0 LAB HCT 40.1-51.0 % Hematocrit 49.8 Performed By: #### CHHJ #### Kindra CCCT, [facility] [address] [place] [address] XR CHEST AP PORTABLE Observed: 01/11/2018 Status: F Source: [facility] ED 4:38 PM [facility] REPOSITORY EXAM: XR CHEST AP PORTABLE ED, 01/11/2018 16:17 PM COMPARISON: No prior studies available for comparison. CLINICAL INDICATIONS: cough FINDINGS: (Adequate technique) Life Support Devices: None Chest Wall: No appreciable acute osseous abnormality. Rosina: Normal Mediastinum: Normal Pleural Spaces: No definite pleural effusion. No definite pneumothorax. Lungs: Low lung volumes with bibasilar atelectasis. No appreciable consolidative airspace disease. Cardiac Silhouette: Borderline enlarged Thoracic Aorta: Normal Pulmonary Vessels: Normal, without PVH IMPRESSION: Low lung volumes without acute cardiopulmonary findings. I personally viewed and interpreted these images and I have reviewed and approved this report. Observed: 01/11/2018 Status: F Source: [facility] TYPE AND CROSS 3:30 PM [facility] REPOSITORY ABO/RH(D): A POSITIVE ANTIBODY SCREEN: NEGATIVE Performed By: #### XM #### [facility] [address] [place] [address] [facility] [address] [place], [place] [address] PT*PTT - CHRI Collected: 01/11/2018 Status: F Source: [facility] 3:05 PM [facility] REPOSITORY TYPE CODE TESTS RESULT OUT OF RANGE REFERENCE UNITS LAB PT 11.9-14.2 sec High PT 17.0 LAB INR 0.9-1.1 High INR 1.4 LAB PTT 24.0-34.3 sec PTT 27.5 *POC GLUCOSE BATTERY Collected: 01/11/2018 Status: F Source: [facility] 12:46 PM [facility] REPOSITORY TYPE CODE TESTS RESULT OUT OF REFERENCE UNITS RANGE LAB GLUP 70-99 mg/dL High Glucose (poc 248 device) Result Comment: No BRAVE per RN: PATIENT TYPE LAB PCSTYP *POC Capillary SAMPLE TYPE Blood CBC WITH DIFF KINDRA Collected: 01/11/2018 Status: F Source: [facility] 7:14 AM [facility] REPOSITORY TYPE CODE TESTS RESULT OUT OF REFERENCE UNITS RANGE LAB WBC 4.23-9.07 K/uL WBC Count 13.60 High LAB RBC 4.63-6.08 M/uL RBC Count 6.02 LAB HGB 13.7-17.5 g/dL Hemoglobin 16.6 LAB HCT 40.1-51.0 % Hematocrit 50.2 LAB MCV 79.0-92.2 fL Mean Cell 83.4 Volume LAB MCH 25.7-32.2 pg Mean Cell 27.6 Hgb LAB MCHC 32.3-36.5 g/dL Mean Cell 33.1 Hgb Conc LAB RDW 11.6-14.4 % RBC 16.2 High Distribution LAB PLT 163-337 K/uL Platelet 295 Count LAB MPV 9.4-12.4 fL Mean 9.7 Platelet Volume LAB NRBC 0.0-0.2 /100 WBC NUCLEATED 0.0 RBC LAB DTYPE Electronic DIFFERENTIAL TYPE Differential LAB IGRE % IMMATURE 1.1 GRANS % LAB SEGS % NEUTROPHIL 81.2 SEGMENTED LAB LYM % LYMPHOCYTE 8.8 % LAB MON % MONOCYTE % 6.8 LAB EOS % EOSINOPHIL 1.5 % LAB BASO % BASOPHIL % 0.6 LAB IGABS <0.04 K/uL IMMATURE 0.15 High GRANS ABSOLUTE LAB SBANS 1.78-5.38 K/uL SEGS + 11.06 High Bands,Absolute LAB ALYM 1.32-3.57 K/uL Abs Lymph 1.19 Low LAB AMONO 0.30-0.82 K/uL Abs [facility] 0.92 High LAB AEOS <0.55 K/uL Abs Eos 0.20 LAB ABASO <0.09 K/uL Abs Baso 0.08 Performed By: #### INDYDFJ #### Kindra CCCT, [facility] [address] [place] [address] BASIC METABOLIC Collected: 01/11/2018 Status: F Source: [facility] 7:14 AM [facility] REPOSITORY TYPE CODE TESTS RESULT OUT OF REFERENCE UNITS RANGE LAB BUN 7-22 mg/dL BUN 17 LAB CREA 0.70-1.30 mg/dL Low Creatinine 0.67 LAB NA 133-143 mmol/L Sodium 135 LAB K 3.5-5.0 mmol/L Potassium 4.7 LAB CL 98-108 mmol/L Chloride 99 LAB CO2 22-30 mmol/L Carbon Dioxide 25 LAB GLUC 70-99 mg/dL Glucose High 263 LAB CA 8.6-10.5 mg/dL Calcium 10.0 LAB GAP 7-17 mmol/L Anion Gap 16 LAB GFR >60 mL/min/1.73 sqM Est GFR,non >60 [place] LAB GFRA >60 mL/min/1.73 sqM Est GFR, >60 Performed By: #### CBCDFJ #### Kindra CCCT, [facility] [address] [place] [address] EMERGENCY DEPARTMENT Observed: 01/11/2018 Status: F Source: [place] SUMMARY 5:15 AM [facility] REPOSITORY [facility] Medical Records Department [address] [facility] [address] Emergency Department Summary 01/11/18 0109 MR#: [id number] Acct: [id number] Name: MARIA DE JESUS RUIZ Rep #: [id number] : 1965 52 From: Ehsan Rangel DO PCP: Linda Mondragon MD Status: REG ER ADDENDUM by Ehsan Rangel DO on 01/11/18 at 0515 Due to lack of ambulance transfers out of [place] until at least a morning and the cost to the patient out of pocket to transfer him to [facility] the patient would like to be taken there by private vehicle. I think this is reasonable though not preferable given the time delay and his [id number] expense. Patient was given precautions and instructions to call 911 should he develop any complications. He was instructed not to eat or drink anything along the way. He was instructed to go directly to [facility] ED 01/11/18 0515 Date Ehsan Rangel DO cc: Linda Mondragon MD * Signed - ER Visit Summary Date of Service: 01/11/18 Chief Complaint: Abdominal pain History of Present Illness: The patient is a 52 M who states that he is currently being treated for acute bronchitis with underlying COPD disorder. He is using Augmentin and prednisone. Patient states he has been coughing and today had a coughing fit and had severe pain on the right side of his abdomen and now notes swelling. He states that at rest he feels okay but if he coughs or moves the pain is severe. He is on Coumadin for atrial fibrillation. States his last INR was 2.7 and he has been there for months. Physical Examination: Afebrile vital signs are stable Gen: Well-nourished well-developed morbid obesity Head: Normocephalic atraumatic Eyes: Perrl EOMI ENT: TMs clear no rhinorrhea moist mucous membranes Neck: Supple no lymphadenopathy no JVD nontender CVS: Regular rate rhythm no murmurs normal S1-S2 Respiratory: No distress expiratory wheezes bilaterally chest nontender Abdomen: nondistended normal bowel sounds no masses right rectus sheath region demonstrates a firm tender area more consistent with a hematoma. Back: Nontender Extremity: Nontender no edema Skin: Normal color no rash Neuro: alert orientated 3 CN II-XII intact normal strength sensation reflexes gait cerebellar Psych: Normal affect normal mood Test Results: Hemoglobin of 15. INR 2.9. CT the abdomen pelvis demonstrates a large rectal sheath hematoma with contrast extravasation most likely representing active bleeding. Emergency Department Course and Treatment: Patient received vitamin K and ice was applied. He also received a DuoNeb. I spoke with surgery (Dr. Bagley) who recommends transfer to tertiary care. [facility]. They were contacted and has been accepted. Impression: 1. Rectus sheath hematoma with active bleeding 2. Coumadin coagulopathy 3. COPD/bronchitis This note was generated with OutSystemsation software. It may contain incorrect words, spelling, and punctuation that were not noted in review of the chart prior to signing ED Disposition - Plan for ED Patient: Chief Complaint: Abd Pain Referrals: Al Mondragon MD [Primary Care Provider] - What to do if you have Problems For any increased pain, shortness of breath, bleeding, nausea or vomiting, chest pain, or any unexpected problems, contact your Primary Care Provider. Call [facility] ([phone]) or report to the closest Emergency Room. Call 911 if necessary. 01/11/18 0509 <Electronically signed by Ehsan Rangel DO> Date Ehsan Rangel DO Cosigner Signature (If Indicated): Date CC: Linda Mondragon MD PROTHROMBIN TIME W/INR Collected: 01/11/2018 Status: F Source: [place] 1:13 AM [facility] REPOSITORY TYPE CODE TESTS RESULT OUT OF RANGE REFERENCE UNITS LAB L300.4150 11.7-14.9 SECONDS High PROTIME 30.3 LAB L300.4200 Normal INR 2.9 Performed By: #### L300.3900 #### [facility] [address] [place], [address] CBC W/DIFF, AUTOMATED Collected: 01/11/2018 Status: F Source: [place] 1:13 AM [facility] REPOSITORY TYPE CODE TESTS RESULT OUT OF RANGE REFERENCE UNITS LAB L100.1000 4.4-11.0 K/mm3 High WBC 11.7 LAB L100.1200 4.6-6.2 M/mm3 Normal RBC 5.71 LAB L100.1300 13.0-16.5 g/dl Normal HGB 15.5 LAB L100.1400 40-54 % Normal HCT 47.8 LAB L100.1500 80-94 fL Normal MCV 83.7 LAB L100.1600 27.0-32.0 pg Normal MCH 27.1 LAB L100.1700 32-36 g/gl Normal MCHC 32.4 LAB L100.1810 11.6-14.6 % High RDW CV 14.9 LAB L100.1820 35.1-43.9 fl High RDW SD 45.1 LAB L100.1900 150-450 K/mm3 Normal PLT 227 LAB L100.2000 6.2-12.0 fl Normal MPV 9.4 LAB L100.2100 47-70 % Normal NEUT% 67.2 LAB L100.2200 19-41 % Low LY% 15.3 LAB L100.2300 0-10 % High MONO% 12.1 LAB L100.2400 0-5 % Normal EO% 4.1 LAB L100.2500 0-1 % Normal BASO% 0.4 LAB L100.2550 0.0-0.9 % Normal IM GRAN % 0.900 Result Comment: IG% - Immature Granulocytes (promyelocytes, myelocytes and metamyelocytes) > 1% indicates that a LEFT SHIFT is Present. LAB L100.2620 2.0-7.7 X10 3/uL High Absolute Neut 7.8 LAB L100.2720 0.83-4.51 X10 3/ul Normal Absolute Lymph 1.79 LAB L100.4500 Normal SMEAR COMMENT SCANNED Performed By: #### L100.0100 #### [facility] [address] [place], [address] BASIC METABOLIC Collected: 01/11/2018 Status: F Source: [place] PRO[place] (BMP) 1:13 AM [facility] REPOSITORY TYPE CODE TESTS RESULT OUT OF RANGE REFERENCE UNITS LAB L501.0100 74-106 mg/dL High GLU 286 Result Comment: Glucose result greater than or equal to 200 mg/dL suggests DIABETES MELLITUS per A.D.A. criteria. Please note revised GLUCOSE reference range effective 2017. LAB L501.1000 7-18 mg/dL Normal BUN 18 LAB L501.1100 0.70-1.30 mg/dL Normal CREAT,SERUM 0.84 Result Comment: The validity of the calculated GFR AND GFRAA in patients over 70 years has not been determined. Clinical correlation is essential. LAB L501.1110 >60 mL/min Normal EST GFR 102 Result Comment: Non- GFR Calc LAB L501.1115 >60 mL/min Normal EST GFR - AA 123 Result Comment: GFR Calc LAB L501.1255 ml/min Normal Estimated CRCL 110.81 LAB L501.1300 10-20 RATIO High BUN/CRE 21.4 LAB L501.2200 8.5-10 mg/dL .1 CA Normal 9.3 LAB L501.5300 136-14 mmol/L 5 NA Normal 136 LAB L501.5600 3.5-5. mmol/L 1 K Normal 4.2 LAB L501.5900 98-107 mmol/L CL Normal 100 LAB L501.6100 21.0-3 mmol/L 2.0 CO2 Normal 29.0 LAB L501.6200 5-15 GAP Normal 7 Performed By: #### L500.2500 #### [facility] [address] [facility] [place], [address] ABDOMEN/PELVIS W IV CONT Observed: 01/11/2018 Status: F Source: [facility] 1:05 AM [facility] REPOSITORY [facility] Imaging Services [address] [place] [address] Abdomen/Pelvis W IV Cont ONLY MR#: [id number] Acct: [id number] Name: MARIA DE JESUS RUIZ Rep #: [id number] : 1965 M 52 From: Franki Guerrero MD PCP: Linda Mondragon MD Status: REG ER Study: Abdomen/Pelvis W IV Cont ONLY Date of Exam: 01/11/18 Exam# [id number] Ordering Dr: Ehsan Rangel DO STUDY: CT ABDOMEN AND PELVIS WITH CONTRAST REASON FOR EXAM: Male, 52 years old. Right-sided abdominal pain following coughing. RADIATION DOSAGE (If Supplied By Facility): CTDIvol = ( 18.74 ) mGy, DLP = ( 1235.88 ) mGycm TECHNIQUE: Transaxial images were obtained from the dome of the diaphragm to the symphysis pubis without oral contrast. 100 ml of Isovue 300 contrast was administered. Sagittal and coronal images were reconstructed. Individualized dose optimization techniques were used for this CT. COMPARISON: None. FINDINGS: The visualized lung bases are unremarkable. The visualized portions of the heart are within normal limits. There is mild diffuse fatty infiltration of the liver. Normal gallbladder and extrahepatic biliary system. Normal spleen. Normal pancreas. Normal bilateral adrenal glands. Normal right kidney. Normal left kidney. Normal visualized stomach. There are fluid-filled small bowel loops on the left side of the abdomen. The more distal small bowel loops are less distended. There is however no evidence of transition zone. There is fecal retention. There is no evidence of acute diverticulitis. There is non-visualization of the appendix. There is mild atherosclerotic calcification of the abdominal aorta with elongation and tortuosity, but without a demonstrated aneurysm. Normal inferior vena cava. Normal retroperitoneum. Normal urinary bladder. Prostatic calcifications. There is enlargement of the right abdominal rectus muscle compared to the left side measuring about 13 x 6 x 16 cm which could represent hematoma. There are degenerative changes in the lower thoracic spine. CT/Abdomen/Pelvis W IV Cont ONLY IMPRESSION: 1. Large mass in the right lateral anterior abdominal wall likely due to hematoma. 2. Nonspecific mildly dilated fluid-filled small bowel loops on the left side of the abdomen which could be due to mild ileus. Early small bowel obstruction is less likely. 3. Mild fatty infiltration of the liver. 4. Otherwise no demonstrated acute process. Electronically Signed: Franki Guerrero MD at 2:21 EDT Tel , Service support , CC: Linda Mondragon MD; Ehsan Rangel DO Hand Shaper: Signed BASIC METABOLIC Collected: 08/30/2017 Status: F Source: [place] (BMP) 8:51 AM [facility] REPOSITORY Order Comment: Order Date: 08/19/17 Order Info: [id number] - BMP TYPE CODE TESTS RESULT OUT OF RANGE REFERENCE UNITS LAB L501.0100 74-106 mg/dL High GLU 186 Result Comment: Fasting Glucose result greater than or equal to 126 mg/dL suggests DIABETES MELLITUS per A.D.A. criteria. Please note revised GLUCOSE reference range effective 2017. LAB L501.1000 7-18 mg/dL Normal BUN 10 LAB L501.1100 0.70-1.30 mg/dL Normal CREAT,SERUM 0.75 Result Comment: The validity of the calculated GFR AND GFRAA in patients over 70 years has not been determined. Clinical correlation is essential. LAB L501.1110 >60 mL/min Normal EST GFR 116 Result Comment: Non- GFR Calc LAB L501.1115 >60 mL/min Normal EST GFR - AA 141 Result Comment: GFR Calc LAB L501.1300 10-20 RATIO Normal BUN/CRE 13.3 LAB L501.2200 8.5-10.1 mg/dL CA Normal 9.1 LAB L501.5300 136-145 mmol/L NA Normal 137 LAB L501.5600 3.5-5.1 mmol/L K Normal 4.1 LAB L501.5900 98-107 mmol/L CL Normal 100 LAB L501.6100 21.0-32.0 mmol/L Normal CO2 29.0 LAB L501.6200 5-15 Normal GAP 8 Performed By: #### L500.2500 #### [facility] [address] [place], [place], [address] COMPREHENSIVE METABOLIC Collected: 08/10/2017 Status: F Source: [place] 10:12 AM [facility] REPOSITORY Order Comment: Order Date: 08/10/17 Order Info: [id number] - CMP Order Info: [id number] - LIPID Order Info: [id number] - TSH TYPE CODE TESTS RESULT OUT OF RANGE REFERENCE UNITS LAB L501.0100 74-106 mg/dL High GLU 132 Result Comment: Fasting Glucose result greater than or equal to 126 mg/dL suggests DIABETES MELLITUS per A.D.A. criteria. Please note revised GLUCOSE reference range effective 2017. LAB L501.1000 7-18 mg/dL Normal BUN 8 LAB L501.1100 0.70-1.30 mg/dL Low CREAT,SERUM 0.61 Result Comment: The validity of the calculated GFR AND GFRAA in patients over 70 years has not been determined. Clinical correlation is essential. LAB L501.1110 >60 mL/min Normal EST GFR 148 Result Comment: Non- GFR Calc LAB L501.1115 >60 mL/min Normal EST GFR - AA 179 Result Comment: GFR Calc LAB L501.1300 10-20 RATIO Normal BUN/CRE 13.1 LAB L501.1500 6.4-8.2 g/dL T Normal PROT 7.3 LAB L501.1800 3.2-5.0 g/dL Normal ALB 3.4 LAB L501.1950 2.2-4.2 g/dL Normal GLOB 3.9 LAB L501.2000 0.9-2.4 RATIO Normal A/G 0.9 LAB L501.2200 8.5-10.1 mg/dL CA Normal 8.8 LAB L501.4100 15-37 U/L Low AST 10 LAB L501.4305 45-117 U/L Normal ALK P 57 LAB L501.4405 16-61 U/L Normal ALT 22 LAB L501.4600 0.20-1.00 mg/dL T Normal BILI 0.60 LAB L501.5300 136-145 mmol/L NA Normal 139 LAB L501.5600 3.5-5.1 mmol/L K Normal 4.3 LAB L501.5900 98-107 mmol/L CL Normal 104 LAB L501.6100 21.0-32.0 mmol/L Normal CO2 29.0 LAB L501.6200 5-15 Normal GAP 6 Performed By: #### L500.4050, L501.9520, L100.0500 #### [facility] [address] [place], [address] THYROID STIM HORMONE Collected: 08/10/2017 Status: F Source: [place] (TSH) 10:12 AM [facility] REPOSITORY Order Comment: Order Date: 08/10/17 Order Info: [id number] - CMP Order Info: [id number] - LIPID Order Info: [id number] - TSH TYPE CODE TESTS RESULT OUT OF RANGE REFERENCE UNITS LAB L501.9520 0.358-3.74 uIU/mL Normal TSH 2.10 Performed By: #### L500.4050, L501.9520, L100.0500 #### [facility] [address] [place], [place], [id number] CBC-COMPLETE BLOOD CNT Collected: 08/10/2017 Status: F Source: [place] NO DIFF 10:12 AM [facility] REPOSITORY Order Comment: Order Date: 08/10/17 Order Info: [id number] - CBC TYPE CODE TESTS RESULT OUT OF RANGE REFERENCE UNITS LAB L100.1000 4.4-11.0 K/mm3 Normal WBC 6.2 LAB L100.1200 4.6-6.2 M/mm3 Normal RBC 5.33 LAB L100.1300 13.0-16.5 g/dl Normal HGB 14.2 LAB L100.1400 40-54 % Normal HCT 45.0 LAB L100.1500 80-94 fL Normal MCV 84.4 LAB L100.1600 27.0-32.0 pg Low MCH 26.6 LAB L100.1700 32-36 g/gl Low MCHC 31.6 LAB L100.1810 11.6-14.6 % High RDW CV 15.4 LAB L100.1820 35.1-43.9 fl High RDW SD 46.8 LAB L100.1900 150-450 K/mm3 Normal PLT 205 LAB L100.2000 6.2-12.0 fl Normal MPV 10.4 Performed By: #### L500.4050, L501.9520, L100.0500 #### [facility] [address] [place], [place], [id number] LIPID PROFILE Collected: 08/10/2017 Status: F Source: [place] 10:12 AM [facility] REPOSITORY Order Comment: Order Date: 08/10/17 Order Info: [id number] - CMP Order Info: [id number] - LIPID Order Info: [id number] - TSH TYPE CODE TESTS RESULT OUT OF RANGE REFERENCE UNITS LAB L501.4900 200 mg/dL Normal CHOL 94 Result Comment: <200 mg/dL Desirable 200-240 mg/dL Borderline >240 mg/dL High Risk LAB L501.5000 mg/dL Normal TRIG 125 Result Comment: The drugs N-Acetylcysteine and Metamizole may falsely depress this assay. Serum Triglycerides Reference Interval Normal <150 mg/dL Borderline high 150 - 199 mg/dL High 200 - 499 mg/dL Very High > or = 500 mg/dL LAB L501.6400 mg/dL Low HDL 31 Result Comment: The drugs N-Acetylcysteine and Metamizole may falsely depress this assay. Reference Range HDL <40 mg/dL Low HDL Cholesterol HDL >or= 60 mg/dL High HDL Cholesterol LAB L501.6500 0-130 mg/dL Normal LDL 38 LAB L501.6600 5-40 mg/dL Normal VLDL 25 Performed By: #### L500.4100 #### [facility] [address] [facility] [place], [address] ORBIT FACE AND NECK Observed: 06/15/2017 Status: F Source: [place] (ROUTINE) 1:19 PM [facility] REPOSITORY [facility] Imaging Services [address] [place] [address] Orbit Face and Neck (Routine) MR#: [id number] Acct: [id number] Name: MARIA DE JESUS RUIZ Rep #: [id number] : 1965 M 51 From: Medhat Lee MD PCP: Linda Mondragon MD Status: REG CLI Study: Orbit Face and Neck (Routine) Date of Exam: 06/15/17 Exam# [id number] Ordering Dr: Kindra Wolf Jr. STUDY: MRI ORBITS WITHOUT CONTRAST REASON FOR EXAM: Male, 51 years old. TECHNIQUE: Standardized multiplanar fat and water weighted pulse sequences were obtained. COMPARISON: None. FINDINGS: No evidence for shift of midline structures, mass effect or compression of ventricles noted. No acute intra or extra-axial hemorrhage is seen. No abnormal intracranial fluid collections identified. The basal cisterns are patent. Ventricular system appears unremarkable. Skull base vascular flow voids are patent. Mucous retention cyst in the left maxillary sinus. Air-fluid levels in the right maxillary sinus as well as the sphenoid sinus noted suggestive of acute sinusitis in an appropriate clinical setting. A few nonspecific T2/FLAIR hyperintense foci noted in the subcortical white matter however can be seen in the setting of mild chronic small vessel disease or migraine related changes. Mild edema in the optic nerve sheaths which is a nonspecific finding. No definite evidence for optic neuritis. Extraocular muscles appear symmetric however there is bilateral exophthalmos noted with increased retrobulbar fat contents. Although nonspecific can be seen in the setting of thyroid ophthalmopathy. No discrete orbital mass based on this noncontrast MR examination. No inflammatory fat stranding in the retrobulbar fat. Lacrimal glands appear symmetric. MRI/Orbit Face and Neck (Routine) IMPRESSION: No evidence for acute or subacute ischemic insult. No evidence for intracranial mass or acute hemorrhage No definite evidence for optic neuritis. Extraocular muscles appear symmetric however there is bilateral exophthalmos noted with increased retrobulbar fat contents. Although nonspecific can be seen in the setting of thyroid ophthalmopathy. A few nonspecific T2/FLAIR hyperintense foci noted in the subcortical white matter however can be seen in the setting of mild chronic small vessel disease or migraine related changes. Electronically Signed: Medhat Lee, at 0:26 EST Tel , Service support , CC: Linda Mondragon MD; Kindra Wolf Jr. Hand Shaper: Signed CBC W/DIFF, AUTOMATED Collected: 06/08/2017 Status: F Source: [place] 9:19 AM [facility] REPOSITORY TYPE CODE TESTS RESULT OUT OF RANGE REFERENCE UNITS LAB L100.1000 4.4-11.0 K/mm3 Normal WBC 6.2 LAB L100.1200 4.6-6.2 M/mm3 Normal RBC 5.22 LAB L100.1300 13.0-16.5 g/dl Normal HGB 14.6 LAB L100.1400 40-54 % Normal HCT 45.0 LAB L100.1500 80-94 fL Normal MCV 86.2 LAB L100.1600 27.0-32.0 pg Normal MCH 28.0 LAB L100.1700 32-36 g/gl Normal MCHC 32.4 LAB L100.1810 11.6-14.6 % High RDW CV 14.9 LAB L100.1820 35.1-43.9 fl High RDW SD 47.1 LAB L100.1900 150-450 K/mm3 Normal PLT 182 LAB L100.2000 6.2-12.0 fl Normal MPV 10.2 LAB L100.2100 47-70 % Normal NEUT% 64.7 LAB L100.2200 19-41 % Low LY% 16.2 LAB L100.2300 0-10 % High MONO% 10.7 LAB L100.2400 0-5 % High EO% 7.4 LAB L100.2500 0-1 % Normal BASO% 0.5 LAB L100.2550 0.0-0.9 % Normal IM GRAN % 0.500 Result Comment: IG% - Immature Granulocytes (promyelocytes, myelocytes and metamyelocytes) > 1% indicates that a LEFT SHIFT is Present. LAB L100.2620 2.0-7.7 X10 3/uL Normal Absolute Neut 4.0 LAB L100.2720 0.83-4.51 X10 3/ul Normal Absolute Lymph 1.01 Performed By: #### L100.0100, L101.9900 #### [facility] [address] [facility] [place], [place], [id number] ERYTHROCYTE SED RATE Collected: 06/08/2017 Status: F Source: [place] 9:19 AM [facility] REPOSITORY TYPE CODE TESTS RESULT OUT OF RANGE REFERENCE UNITS LAB L102.0000 0-20 mm/hr High SED RATE 25 Performed By: #### L100.0100, L101.9900 #### [facility] [address] [facility]. [place], [place], [id number] T3 UPTAKE Collected: 06/08/2017 Status: F Source: [place] 9:19 AM [facility] REPOSITORY TYPE CODE TESTS RESULT OUT OF RANGE REFERENCE UNITS LAB L501.9210 33-40 % Normal T3 [place] 35 LAB L501.9410 1.4-4.5 Normal T7 (FTI) 3.1 Performed By: #### L501.9195, L501.9310, L501.9520 #### [facility] [address] [place], [place], [address] T4 TOTAL, THYROXIN Collected: 06/08/2017 Status: F Source: [place] 9:19 AM [facility] REPOSITORY TYPE CODE TESTS RESULT OUT OF RANGE REFERENCE UNITS LAB L501.9310 4.5-12.1 ug/dL T4 Normal THYROXIN 8.9 Performed By: #### L501.9195, L501.9310, L501.9520 #### [facility]. [place], [place], [id number] THYROID STIM HORMONE Collected: 06/08/2017 Status: F Source: [place] (TSH) 9:19 AM [facility] REPOSITORY TYPE CODE TESTS RESULT OUT OF RANGE REFERENCE UNITS LAB L501.9520 0.358-3.74 uIU/mL Normal TSH 2.60 Performed By: #### L501.9195, L501.9310, L501.9520 #### [facility]. [place], [place], [address] T3 TOTAL - TRIIODOTHYRONINE Collected: 06/08/2017 Status: F Source: [place] 9:19 AM [facility] REPOSITORY TYPE CODE TESTS RESULT OUT OF RANGE REFERENCE UNITS LAB L501.9186 0.6-1.81 ng/mL Normal T3 Total 1.05 Performed By: #### L501.9186 #### [facility] [address] [facility] [place], [place], [address] ANTINUCLEAR ANTIBODIES Collected: 06/08/2017 Status: F Source: [place] 9:19 AM [facility] REPOSITORY TYPE CODE TESTS RESULT OUT OF RANGE REFERENCE UNITS LAB L3100.5475 Negative Normal Negative HARISH-DIRECT Result Comment: Performed at: [address] [id number] Burning Plant Operator: Winston Domínguez PhD, Phone: [phone] Performed By: #### L3100.5475 #### [facility] (refer to report for specific site) refer to report for address and phone number THYROGLOBULIN W/ANTI-TG Collected: 06/08/2017 Status: F Source: [place] 9:19 AM [facility] REPOSITORY TYPE CODE TESTS RESULT OUT OF RANGE REFERENCE UNITS LAB L3300.7025 0.0-0.9 IU/mL Normal ANTI-TG < 1.0 AB Result Comment: Thyroglobulin Antibody measured by [facility] LAB L3400.1030 1.4-29.2 ng/mL Normal THYROGLOB 16.7 Result Comment: According to the National Academy of Clinical Biochemistry, the reference interval for Thyroglobulin (TG) should be related to euthyroid patients and not for patients who underwent thyroidectomy. TG reference intervals for these patients depend on the residual mass of the thyroid tissue left after surgery. Establishing a post-operative baseline is recommended. The assay limit of quantitation is 0.1 ng/mL Thyroglobulin measured by [employer] Performed at: [place] [address] [employer] Operator: Winston Domínguez PhD, Phone: [phone] Performed By: #### L3300.6820 #### [facility] (refer to report for specific site) refer to report for address and phone number RAPID PLASMIN REAGIN Collected: 06/08/2017 Status: F Source: [place] (RPR) 9:19 AM [facility] REPOSITORY TYPE CODE TESTS RESULT OUT OF REFERENCE UNITS RANGE LAB L700.5000 NONREACTIVE NONREACTIVE Normal RPR Performed By: #### L700.5000 #### [facility] [address] [place] [address], [id number] PROGRESS Observed: 04/10/2017 Status: COMPLETED Source: [place] 10:57 AM [facility] REPOSITORY O ID: [id number] Author: Godfrey Diamond Service: (none) Author Type: Physician Type: Progress Notes Filed: 04/10/2017 11:01 AM Note Text: ASSESSMENT/PLAN: 1. Allergic dermatitis of eyelid, right - ICD9: 373.32, ICD10: H01.113 (primary diagnosis) Current Ophthalmic Meds KETOROLAC TROMETHAMINE (ACULAR OPHTHALMIC) (Taking) 1 drop in the right eye twice a day Naphcon A 1 drop in the right eye twice a day Medrol dose pack Use as directed 2. Other atopic dermatitis - ICD9: 691.8, ICD10: L20.89 -Consider follow up in future with a Concession Supervisor 3. Type 2 diabetes mellitus without retinopathy (HCC) - ICD9: 250.00, ICD10: E11.9 -Please keep your blood sugar under good control to minimize risk of ocular complications from diabetes. -Monitor with PCP 4. Atrial fibrillation, unspecified type (HCC) - ICD9: 427.31, ICD10: I48.91 -Monitor with PCP 5. Moderate persistent asthma without complication - ICD9: 493.90, ICD10: J45.40 -Monitor with PCP Godfrey Diamond MD I have confirmed and edited as necessary the relevant ophthalmic history, review of systems, surgical history, and ophthalmological examination findings as obtained by the ophthalmic technical staff. I have seen and examined Maria De Jesus Joseph. I have discussed the examination findings, diagnosis, and treatment options with Maria De Jesus Joseph and/or his family. I have also reviewed and agree with the assessment and plan as stated above and agree with all its relevant components. I gave the patient the opportunity to ask questions about the findings, diagnosis, and treatment options. HOSP Observed: 04/10/2017 Status: COMPLETED Source: [place] 10:45 AM [facility] REPOSITORY Office Visit OPHT (OPHTSA) MARIA DE JESUS RUIZ ([id number]) 1965 M Date Time Provider Department 04/10/17 10:45 AM GODFREY DIAMOND OPHTSA During your visit today, we recorded the following information about you: Godfrey Diamond MD 04/10/2017 11:01 AM Signed ASSESSMENT/PLAN: 1. Allergic dermatitis of eyelid, right - ICD9: 373.32, ICD10: H01.113 (primary diagnosis) Current Ophthalmic Meds KETOROLAC TROMETHAMINE (ACULAR OPHTHALMIC) (Taking) 1 drop in the right eye twice a day Naphcon A 1 drop in the right eye twice a day Medrol dose pack Use as directed 2. Other atopic dermatitis - ICD9: 691.8, ICD10: L20.89 -Consider follow up in future with a Concession Supervisor 3. Type 2 diabetes mellitus without retinopathy (HCC) - ICD9: 250.00, ICD10: E11.9 -Please keep your blood sugar under good control to minimize risk of ocular complications from diabetes. -Monitor with PCP 4. Atrial fibrillation, unspecified type (HCC) - ICD9: 427.31, ICD10: I48.91 -Monitor with PCP 5. Moderate persistent asthma without complication - ICD9: 493.90, ICD10: J45.40 -Monitor with PCP Godfrey Diamond MD I have confirmed and edited as necessary the relevant ophthalmic history, review of systems, surgical history, and ophthalmological examination findings as obtained by the ophthalmic technical staff. I have seen and examined Maria De Jesus Ruiz. I have discussed the examination findings, diagnosis, and treatment options with Maria De Jesus Ruiz and/or his family. I have also reviewed and agree with the assessment and plan as stated above and agree with all its relevant components. I gave the patient the opportunity to ask questions about the findings, diagnosis, and treatment options. Godfrey Diamond MD 04/10/2017 11:00 AM Signed ASSESSMENT/PLAN: 1. Allergic dermatitis of eyelid, right - ICD9: 373.32, ICD10: H01.113 (primary diagnosis) Current Ophthalmic Meds KETOROLAC TROMETHAMINE (ACULAR OPHTHALMIC) (Taking) 1 drop in the right eye twice a day Naphcon A 1 drop in the right eye twice a day Medrol dose pack Use as directed 2. Other atopic dermatitis - ICD9: 691.8, ICD10: L20.89 -Consider follow up in future with a Concession Supervisor 3. Type 2 diabetes mellitus without retinopathy (HCC) - ICD9: 250.00, ICD10: E11.9 -Please keep your blood sugar under good control to minimize risk of ocular complications from diabetes. -Monitor with PCP 4. Atrial fibrillation, unspecified type (HCC) - ICD9: 427.31, ICD10: I48.91 -Monitor with PCP 5. Moderate persistent asthma without complication - ICD9: 493.90, ICD10: J45.40 -Monitor with PCP Godfrey Diamond MD I have confirmed and edited as necessary the relevant ophthalmic history, review of systems, surgical history, and ophthalmological examination findings as obtained by the ophthalmic technical staff. I have seen and examined Maria De Jesus Ruiz. I have discussed the examination findings, diagnosis, and treatment options with Maria De Jesus Ruiz and/or his family. I have also reviewed and agree with the assessment and plan as stated above and agree with all its relevant components. I gave the patient the opportunity to ask questions about the findings, diagnosis, and treatment options. If you have any questions please contact our office at [phone]. After office hours or on the weekend, please call the telephone supervisor at [facility] ([phone]) and page Dr. Diamond. Referring Provider: GODFREY DIAMOND [[id number]] Allergies As of Date: 04/10/2017 Noted Allergy Reaction LEVOFLOXACIN 01/10/2016 4 - Hives Date Reviewed: 04/10/2017 Reviewed by: Godfrey Diamond - Fully Assessed Reason for Visit: Conjunctivitis Follow Up [3206] Cmt: Right eye continue to have swollen eyelids and itching. Reason For Visit History Recorded Primary Visit Diagnosis:Allergic dermatitis of eyelid, right [H01.113] Other Visit Diagnoses:Other atopic dermatitis [L20.89] Type 2 diabetes mellitus without retinopathy (HCC) [E11.9] Atrial fibrillation, unspecified type (HCC) [I48.91] Moderate persistent asthma without complication [J45.40] Order(s):methylPREDNISolone (MEDROL DOSE-PACK) 4 mg Dose-PackAs Instructed per packageDisp: 1 PackageRfl: 0 Prescriptions as of 04/10/2017 Sig: METHYLPREDNISOLONE 4 MG TABLE* As Instructed per package NAPHCON-A OPHTHALMIC Use 1 Drop in eyes twice kelechi* ACULAR OPHTHALMIC Use 1 Drop in eyes twice kelechi* LISINOPRIL 5 MG TABLET Take 1 tablet by mouth once d* ATORVASTATIN 10 MG TABLET Take 1 tablet by mouth once d* ASPIRIN 325 MG TABLET Take 325 mg by mouth once zina* METOPROLOL SUCCINATE ER 50 MG* Take 50 mg by mouth once kelechi* METFORMIN ORAL Take by mouth. MELATONIN 10 MG TABLET Take by mouth. Problem List As Of Date 04/10/2017 Noted Resolved SUMMARY [V999.95] INVALID FOR* Priority: A More... Chest pain [R07.9] INVALID FOR* Priority: B More... Hypertension [I10] INVALID FOR* Priority: E More... Diabetes mellitus type II INVALID FOR* Priority: F More... Atrial fibrillation [I48.91] INVALID FOR* Priority: D More... Type 2 diabetes mellitus without retinopathy (H*INVALID FOR* Allergic dermatitis of eyelid, right [H01.113] INVALID FOR* Other atopic dermatitis [L20.89] INVALID FOR* Moderate persistent asthma without complication*INVALID FOR* Other instructions from your clinician: ASSESSMENT/PLAN: 1. Allergic dermatitis of eyelid, right - ICD9: 373.32, ICD10: H01.113 (primary diagnosis) Current Ophthalmic Meds KETOROLAC TROMETHAMINE (ACULAR OPHTHALMIC) (Taking) 1 drop in the right eye twice a day Naphcon A 1 drop in the right eye twice a day Medrol dose pack Use as directed 2. Other atopic dermatitis - ICD9: 691.8, ICD10: L20.89 -Consider follow up in future with a Concession Supervisor 3. Type 2 diabetes mellitus without retinopathy (HCC) - ICD9: 250.00, ICD10: E11.9 -Please keep your blood sugar under good control to minimize risk of ocular complications from diabetes. -Monitor with PCP 4. Atrial fibrillation, unspecified type (HCC) - ICD9: 427.31, ICD10: I48.91 -Monitor with PCP 5. Moderate persistent asthma without complication - ICD9: 493.90, ICD10: J45.40 -Monitor with PCP Godfrey Diamond MD I have confirmed and edited as necessary the relevant ophthalmic history, review of systems, surgical history, and ophthalmological examination findings as obtained by the ophthalmic technical staff. I have seen and examined Maria De Jesus Ruiz. I have discussed the examination findings, diagnosis, and treatment options with Maria De Jesus Ruiz and/or his family. I have also reviewed and agree with the assessment and plan as stated above and agree with all its relevant components. I gave the patient the opportunity to ask questions about the findings, diagnosis, and treatment options. If you have any questions please contact our office at [phone]. After office hours or on the weekend, please call the telephone supervisor at [facility] ([phone]) and page Dr. Diamond. Prescriptions ordered this encounter Disp Refills Start End METHYLPREDNISOLONE 4 MG TABLETS IN A* 1 Pa* 0 04/10/2017 Sig: As Instructed per package Follow-up and Disposition History Recorded Encounter Status:Closed by GODFREY DIAMOND MD on 04/10/17 PROGRESS Observed: 04/09/2017 Status: COMPLETED Source: [place] 4:13 PM [facility] REPOSITORY HNO ID: [id number] Author: Godfrey Diamond Service: (none) Author Type: Physician Type: Progress Notes Filed: 04/09/2017 4:17 PM Note Text: ASSESSMENT/PLAN: 1. Allergic dermatitis of eyelid, right - ICD9: 373.32, ICD10: H01.113 (primary diagnosis) Begin: Ice packs - 10 minutes four times daily. Naphcon-A drops- 1 drop twice a day both eyes. Acular drops - 1 drop 4 times daily both eyes. Return tomorrow. 2. Type 2 diabetes mellitus without retinopathy (HCC) - ICD9: 250.00, ICD10: E11.9 Please keep your blood sugar under good control to minimize risk of ocular complications from diabetes. Godfrey Diamnod MD I have confirmed and edited as necessary the relevant ophthalmic history, review of systems, surgical history, and ophthalmological examination findings as obtained by the ophthalmic technical staff. I have seen and examined Maria De Jesus Joseph. I have discussed the examination findings, diagnosis, and treatment options with Maria De Jesus Harrisonchtel and/or his family. I have also reviewed and agree with the assessment and plan as stated above and agree with all its relevant components. I gave the patient the opportunity to ask questions about the findings, diagnosis, and treatment options. HOSP Observed: 04/09/2017 Status: COMPLETED Source: [place] 3:00 PM [facility] REPOSITORY Office Visit OPHT (OPHTSA) MARIA DE JESUS RUIZ ([id number]) 1965 M Date Time Provider Department 04/09/17 3:00 PM GODFREY DIAMOND OPHTSA During your visit today, we recorded the following information about you: Godfrey Diamond MD 04/09/2017 4:17 PM Signed ASSESSMENT/PLAN: 1. Allergic dermatitis of eyelid, right - ICD9: 373.32, ICD10: H01.113 (primary diagnosis) Begin: Ice packs - 10 minutes four times daily. Naphcon-A drops- 1 drop twice a day both eyes. Acular drops - 1 drop 4 times daily both eyes. Return tomorrow. 2. Type 2 diabetes mellitus without retinopathy (HCC) - ICD9: 250.00, ICD10: E11.9 Please keep your blood sugar under good control to minimize risk of ocular complications from diabetes. Godfrey Diamond MD I have confirmed and edited as necessary the relevant ophthalmic history, review of systems, surgical history, and ophthalmological examination findings as obtained by the ophthalmic technical staff. I have seen and examined Maria De Jesus Ruiz. I have discussed the examination findings, diagnosis, and treatment options with Maria De Jesus Ruiz and/or his family. I have also reviewed and agree with the assessment and plan as stated above and agree with all its relevant components. I gave the patient the opportunity to ask questions about the findings, diagnosis, and treatment options. Godfrey Diamond MD 04/09/2017 4:16 PM Signed Begin: Ice packs - 10 minutes four times daily. Naphcon-A drops- 1 drop twice a day both eyes. Acular drops - 1 drop 4 times daily both eyes. Return tomorrow. If you have any questions please contact our office at [phone]. After office hours or on the weekend, please call the telephone supervisor at [facility] ([phone]) and page Dr. Diamond. Referring Provider: SELF [[id number]] Allergies As of Date: 04/09/2017 Noted Allergy Reaction LEVOFLOXACIN 01/10/2016 4 - Hives Date Reviewed: 04/09/2017 Reviewed by: Godfrey Diamond - Fully Assessed Reason for Visit: Eye Lid Swelling [3453] Cmt: x 2 days. Here for evaluation and treatment. Red Eye Both Eyes [2911] Cmt: x 2 days. Non-insulin Dependent Diabetes Mellitus [2793] Reason For Visit History Recorded Primary Visit Diagnosis:Allergic dermatitis of eyelid, right [H01.113] Other Visit Diagnosis:Type 2 diabetes mellitus without retinopathy (HCC) [E11.9] Prescriptions as of 04/09/2017 Sig: LISINOPRIL 5 MG TABLET Take 1 tablet by mouth once d* ATORVASTATIN 10 MG TABLET Take 1 tablet by mouth once d* ASPIRIN 325 MG TABLET Take 325 mg by mouth once zina* METOPROLOL SUCCINATE ER 50 MG* Take 50 mg by mouth once kelechi* METFORMIN ORAL Take by mouth. MELATONIN 10 MG TABLET Take by mouth. Problem List As Of Date 04/09/2017 Noted Resolved SUMMARY [V999.95] INVALID FOR* Priority: A More... Chest pain [R07.9] INVALID FOR* Priority: B More... Hypertension [I10] INVALID FOR* Priority: E More... Diabetes mellitus type II INVALID FOR* Priority: F More... Atrial fibrillation [I48.91] INVALID FOR* Priority: D More... Type 2 diabetes mellitus without retinopathy (H*INVALID FOR* Allergic dermatitis of eyelid, right [H01.113] INVALID FOR* Other instructions from your clinician: Begin: Ice packs - 10 minutes four times daily. Naphcon-A drops- 1 drop twice a day both eyes. Acular drops - 1 drop 4 times daily both eyes. Return tomorrow. If you have any questions please contact our office at [phone]. After office hours or on the weekend, please call the telephone supervisor at [facility] ([phone]) and page Dr. Diamond. Disposition: Return in about 1 day (around 04/10/2017) for Allergic Dermatitis. Follow-up and Disposition History Recorded Encounter Status:Closed by GODFREY DIAMOND MD on 04/09/17 ALLERGIES ALLERGIES DATE TYPE / CODE NAME / CODE REACTION SEVERITY SOURCE 01/11/2018 Drug adhesive Rash Unknown [place] Allergy/416 tape/[id number](RXN Community 769064([facility] ED CT) Repository 01/11/2018 Drug levofloxacin/X49918 HIVES AND Unknown [place] Allergy/416 6299(RXNORM) SWELLING Community 101750([facility] ED CT) Repository 01/10/2016 DRUG LEVOFLOXACIN HIVES [facility] INGREDI/[address] [place] [address]([facility] ED CT) Drug NO KNOWN ALLERGIES [facility] Class/[address]304 [address] [place] 1003(SNOMED Repository CT) ENCOUNTERS ENCOUNTERS ADMIT/DISCHARGE ACCOUNT NUMBER ADMITTING ENCOUNTER LOCATION SOURCE CLASS 03/14/2018 [id number] [facility] ding:US Repository 01/17/2018 [id number] Ambulatory [facility] ding:MTLAB Repository 01/11/2018/01/17/20 [id number] [facility], Inpatient Building:[address] Encounter ERoom: [address]: A [facility] Repository 01/11/2018/01/12/20 [id number] Emergency [address] ding:ED Repository 08/30/2017 [id number] Ambulatory [facility] ding:MFPLAB Repository 08/10/2017 [id number] [facility] ding:MFPLAB Repository 06/15/2017 [id number] [facility] ding:MRI Repository 06/08/2017 [id number] [facility] ding:MFPLAB Repository 04/10/2017/04/10/20 [id number] Ambulatory [address] Repository 04/09/2017/04/09/[id number] Repository PAYERS PAYERS ENCOUNTER GUARANTOR PAYER SUBSCRIBER SOURCE 03/14/2018 MARIA DE JESUS [place] Primary MARIA DE JESUS K [place] [id number] Insurance:AULTCAREPol JESSYELDOB: Community [place] icy [place]: [id number] [id number] Repository 232[address]Sxx: ([phone]) e Date:0085-62-21WL [phone] () [facility] [address] [place] [id number]: 03/14/2018 Secondary MARIA DE JESUS K [place] Insurance:[facility] P[facility] WACHTELDOB: [facility] PLANPolicy Number: [id number] Hospital [id number] Repository Date:2018-03-08 03/14/2018 Tertiary NOT GIVENUNK [place] Insurance:SELF PAY [facility] Number: Effective Repository Date:2018-03-08 01/17/2018 MARIA DE JESUS K Primary NOT GIVENUNK [place] [id number] Insurance:SELF PAY [place] Number: Effective Repository [phone]: (330) Date:2018-01-17 [phone] () 01/11/2018 MARIA DE JESUS Primary MARIA DE JESUSMARS [place] WACHTELDOB: Insurance:SELF PAY WACHTELDOB: University WITH [facility][1] [id number] [place] [address] [place] Number: [address] [place], [place] [id number] [place] Repository [address]Eni: ([phone]) Date:7301-70-80Ahcd 03369Ewa: Name:[facility] CARE [phone] () () () 01/11/2018 Maria De Jesus K Primary NOT GIVENUNK [place] [id number] Insurance:SELF PAY Community [place] Number: Effective Repository [phone]: (330) Date:2018-01-11 [phone] () 08/30/2017 Maria De Jesus K Primary Maria De Jesus Solis [place] [id number] Insurance:ANTHEMPolic WachtelDOB: Community [place] y Number: [id number] [id number] Repository [address]Omx: (330) Date:6882-98-06CW [phone] () [id number] [place] [address]SD: 08/30/2017 Secondary NOT GIVENUNK [place] Insurance:SELF PAY [facility] Number: Effective Repository Date:2017-08-30 08/10/2017 Maria De Jesus K Primary Maria De Jesus Solis [place] [id number] Insurance:ANTHEMPolic WachtelDOB: Community [place] y Number: [id number] [place], [place] [id number] Repository [address]Bpl: ([phone]) Date:6719-18-03QT [phone] () [address], [place] [address]NZ: 08/10/2017 Secondary NOT GIVENUNK [place] Insurance:SELF PAY [facility] Number: Effective Repository Date:2017-08-10 06/15/2017 Maria De Jesus Solis Primary Maria De Jesus Solis [place] [id number] Insurance:ANTHEMPolic WachtelDOB: Community [place] y Number: [id number] [id number] Repository [address]Vqd: (330) Date:4384-14-41VR [phone] () [id number], [place] [address]VH: 06/15/2017 Secondary NOT GIVENUNK [place] Insurance:SELF PAY [facility] Number: Effective Repository Date:2017-06-10 06/08/2017 Maria De Jesus Solis Primary Maria De Jesus Solis [place] [id number] Insurance:ANTHEMPolic WachtelDOB: Community [place] y Number: [id number] [place], [place] [id number] Repository [address]Fvj: (330) Date:6985-65-62WL [phone] () [address]KDVDTRS, [place] [address]RI: 06/08/2017 Secondary NOT GIVENUNK [place] Insurance:SELF PAY [facility] Number: Effective Repository Date:2017-06-08
== END ==
PROVIDERS: Family Provider Family Medicine; PCP Family Medicine; Referring Provider Family Medicine; Visit Provider Family Medicine
DX: S36.92XA Contusion of unspecified intra-abdominal organ, initial encounter (principal)
CPT/HCPCS: 76705

== ENCOUNTER → 2018-04-04 09:27 | Outpatient (CLI) | payer OTHER, SELFPAY ==
--- NOTE | 2018-04-04 09:30 | RAD_ITS ---
STUDY: X-RAY - ABDOMEN/PELVIS REASON FOR EXAM: Male, 52 years old. TECHNIQUE: COMPARISON: None. FINDINGS: Normal visualized lung bases. There is an unremarkable bowel gas pattern. There is no demonstrated free abdominal air. The visualized liver, spleen and kidneys are grossly normal in size and morphology. Normal soft tissue structures. Normal visualized osseous structures. RAD/Abd Inc Decub and/or Erect IMPRESSION: Normal x-ray examination of the abdomen and pelvis. Electronically Signed: Adrián Mccarty, at 12:11 EST Tel , Service support ,
== END ==
LOC: MTRAD 09:28
PROVIDERS: Family Provider Family Medicine; PCP Family Medicine; Referring Provider Family Medicine; Visit Provider Family Medicine
DX: N20.0 Calculus of kidney (principal)
CPT/HCPCS: 74019

== ENCOUNTER → 2018-05-09 12:18 | Outpatient (CLI) | payer SELFPAY ==
--- NOTE | 2018-05-09 12:26 | RAD_ITS ---
HISTORY: asthma EXAM/TECHNIQUE: XR Chest 2 Views: COMPARISON: 01/29/15 CXR. FINDINGS: # of images incl. paperwork: 2 No evidence of pneumothorax, consolidation, or pleural effusion. Central bronchial wall thickening bilaterally again demonstrated. Mild cardiomegaly again demonstrated. No acute osseous normality. RAD/Chest PA and Lateral IMPRESSION: Bronchial wall thickening compatible with asthma. Mild cardiomegaly. at 1249 Reported and signed by: Arvin Anaya MD Electronically Signed: Arvin Anaya, at 12:48 EST Tel , Service support ,
[2018-05-09 15:47] LABS: ALB/GLOB Ratio 1.1 RATIO (0.9-2.4); AST(SGOT) 12 U/L (15-37); Alanine Aminotransfer ALT/SGPT 16 U/L (16-61); Alkaline Phosphatase 47 U/L (45-117); Anion Gap 11 (5-15); BUN 11 mg/dL (7-18); BUN/Creat Ratio 14.8 RATIO (10-20); Calcium,Total 9.3 mg/dL (8.5-10.1); Chloride 104 mmol/L (98-107); Creatinine, Serum 0.74 mg/dL (0.70-1.30); EST Glomerular Filtration Rate 117 mL/min (>60); Est Glom Filt Rate - Afr Amer 142 mL/min (>60); Globulin 3.5 g/dL (2.2-4.2); Glucose 119 mg/dL (74-106); Potassium 4.1 mmol/L (3.5-5.1); Protein, Total 7.5 g/dL (6.4-8.2); Sodium Level 142 mmol/L (136-145)
[2018-05-09 16:01] LABS: Absolute Lymphocyte Count 0.48 X10^3/ul (0.83-4.51); Absolute Neutrophil Count 3.1 X10^3/uL (2.0-7.7); Basophil# 0.03 X10^3/uL; Basophil% 0.7 % (0-1); Eosinophil# 0.32 X10^3/uL; Hematocrit 40.1 % (40-54); Hemoglobin 12.3 g/dl (13.0-16.5); Lymphocyte # 0.48 X10^3/ul (4.0); Lymphocyte % 10.5 % (19-41); Mean Corp Hgb Conc 30.7 g/gl (32-36); Mean Corpuscular Hgb 26.9 pg (27.0-32.0); Mean Corpuscular Volume 87.7 fL (80-94); Monocyte# 0.63 X10^3/uL; Monocyte% 13.7 % (0-10); Neutrophil # 3.13 X10^3/uL (2.7-7.7); Neutrophil % 68.1 % (47-70); Platelet Count 164 K/mm3 (150-450); RBC Distribution Width CV 16.8 % (11.6-14.6); RBC Distribution Width SD 52.7 fl (35.1-43.9); Red Blood Count 4.57 M/mm3 (4.6-6.2); White Blood Count 4.6 K/mm3 (4.4-11.0)
[2018-05-09 16:04] LABS: Differential Indicated SCAN CRITERIA MET; POSITIVE COUNT NO; POSITIVE DIFFERENTIAL YES; POSITIVE MORPHOLOGY NO
== END ==
PROVIDERS: Family Provider Family Medicine; PCP Family Medicine; Referring Provider Family Medicine; Visit Provider Family Medicine
DX: J45.909 Unspecified asthma, uncomplicated (principal); R63.5 Abnormal weight gain; R60.9 Edema, unspecified
CPT/HCPCS: 36415; 71046; 80053; 83880; 85025

== ENCOUNTER → 2018-05-20 13:42 | Outpatient (CLI) | payer OTHER, SELFPAY ==
--- NOTE | 2018-05-20 13:47 | ECHOCS_ITS ---
Reason For Study: ABD WALL HEMATOMA Procedure This was a 2D Doppler, Color Flow transthoracic echocardiogram. The study was technically limited. The study was technically difficult. Exam performed with patient in the supine position. Exam performed in department. Left Ventricle Normal size and thickness. D shaped septum in diastole. The estimated ejection fraction is 65 %. Septal motion consistent with IVCD. No regional wall motion abnormalities noted. Right Ventricle Moderately dilated right ventricle. Normal systolic function. Mitral Valve The mitral valve is structurally normal. No prolapse or stenosis seen. Tricuspid Valve Normal tricuspid valve. Trivial tricuspid valve insufficiency. Right ventricular systolic pressure estimated to be 53 mmHg. Moderate pulmonary hypertension. Aortic Valve Normal aortic valve. Trisinus/trileaflet aortic valve. Pulmonic Valve The pulmonic valve is not well visualized. Great Vessels Normal aortic root. Normal arch. Pericardium/Pleural No pericardial effusion. Medication 22 gauge I.V. with prn adaptor inserted into left arm. Diluted definity 4ml given slow IV push to enhance endocardial definition. MMode/2D Measurements & Calculations LVIDd: 5.7 cm IVSd: 1.2 cm Ao root diam: 3.4 cm LVIDs: 3.7 cm LVPWd: 0.96 cm LA dimension: 4.6 cm FS: 35.2 % Doppler Measurements & Calculations MV E max sukhdeep: 104.1 cm/sec Ao V2 max: 117.3 cm/sec PA V2 max: 105.3 cm/sec Ao max P.5 mmHg TR max sukhdeep: 306.8 cm/sec TR max P.7 mmHg Interpretation Summary The estimated ejection fraction is 65 %. D shaped septum in diastole. Moderately dilated right ventricle. Trivial tricuspid valve insufficiency. Right ventricular systolic pressure estimated to be 53 mmHg. Moderate pulmonary hypertension. Compared to echo report dated 01/31/2015, LV function has remained the same, RVSP has increased from 34 to 53 mm Hg, and pt now appears to be in atrial fibrillation. The study was technically difficult. Contrast injection was performed. Ordering Physician: Stanley Mondragon Referring Physician: Stanley Mondragon Performed By: Jenise Vázquez RDCS
== END ==
LOC: CVS 13:45
PROVIDERS: Family Provider Family Medicine; PCP Family Medicine; Referring Provider Family Medicine; Visit Provider Family Medicine
DX: S30.1XXA Contusion of abdominal wall, initial encounter (principal)
CPT/HCPCS: 93306; Q9957; A4216; C8929

== ENCOUNTER → 2018-05-23 13:55 | Outpatient (CLI) | payer OTHER, SELFPAY ==
--- NOTE | 2018-05-23 13:58 | CT_ITS ---
STUDY: CT ABDOMEN WITH CONTRAST REASON FOR EXAM: Male, 52 years old. Abdominal wall hematoma. 60 pound weight gain in one month. RADIATION DOSAGE (If Supplied By Facility): CTDIvol = ( 46.65 ) mGy, DLP = ( 2582.72 ) mGycm TECHNIQUE: Transaxial images were obtained post I.V. administration of 100mL ml of Isovue 300 contrast, and with oral contrast. Sagittal and coronal images were reconstructed. Individualized dose optimization techniques were used for this CT. COMPARISON: Comparison is made with prior examination January 11, 2018. FINDINGS: Small bilateral pleural effusions slightly greater on the right side. The visualized portions of the heart are within normal limits. Ascites with perihepatic and perisplenic fluid. Sludge or tiny gallstones seen in the gallbladder lumen. Normal spleen. Normal pancreas. Normal bilateral adrenal glands. Normal right kidney. Normal left kidney. Normal visualized stomach. Normal small intestine. There are multiple colonic diverticula consistent with diverticulosis. The appendix is visualized and appears normal. There is diffuse atherosclerotic calcification of the abdominal aorta, without a demonstrated aneurysm. Normal inferior vena cava. There is borderline retroperitoneal lymphadenopathy with enlarged nodes no greater than 10mm in the short axis diameter. Diffuse increased markings within the subcutaneous fat suggestive of fluid overload. The previously seen right rectus sheath hematoma is not seen at this time. There are degenerative changes of the visualized lumbar spine. CT/Abdomen WITH IV Contrast IMPRESSION: Small bilateral effusions right greater than left. Ascites. Questionable sludge or tiny gallstones in the gallbladder lumen. Electronically Signed: Joaquin Bergeron MD at 9:37 EST , Service support ,
== END ==
LOC: CT 13:57
PROVIDERS: Family Provider Family Medicine; PCP Family Medicine; Referring Provider Family Medicine; Visit Provider Family Medicine
DX: S30.1XXA Contusion of abdominal wall, initial encounter (principal)
CPT/HCPCS: 74160; Q9967

== ENCOUNTER → 2018-05-27 11:13 | Outpatient (CLI) | payer OTHER, SELFPAY ==
[2018-05-27 13:10] LABS: International Normalized Ratio 1.2; Prothrombin Time (Protime)PT. 15.3 SECONDS (11.7-14.9)
[2018-05-27 13:11] LABS: Partial Thromboplast Time 32.8 Seconds (24.1-36.2)
[2018-05-27 13:37] LABS: ALB/GLOB Ratio 1.4 RATIO (0.9-2.4); AST(SGOT) 17 U/L (15-37); Alanine Aminotransfer ALT/SGPT 15 U/L (16-61); Albumin, Serum 4.2 g/dL (3.2-5.0); Alkaline Phosphatase 53 U/L (45-117); Anion Gap 8 (5-15); BUN 14 mg/dL (7-18); BUN/Creat Ratio 18.8 RATIO (10-20); Calcium,Total 8.9 mg/dL (8.5-10.1); Chloride 101 mmol/L (98-107); Creatinine, Serum 0.74 mg/dL (0.70-1.30); EST Glomerular Filtration Rate 117 mL/min (>60); Est Glom Filt Rate - Afr Amer 142 mL/min (>60); Ferritin 67 ng/mL (26-388); GGTP 36 U/L (15-85); Glucose 87 mg/dL (74-106); Iron 49 ug/dL (65-175); Potassium 3.9 mmol/L (3.5-5.1); Protein, Total 7.2 g/dL (6.4-8.2); Sodium Level 138 mmol/L (136-145)
== END ==
LOC: MFPLAB 11:14
PROVIDERS: Family Provider Family Medicine; PCP Family Medicine; Visit Provider Family Medicine
DX: R60.9 Edema, unspecified (principal)
CPT/HCPCS: 36415; 80053; 82728; 82977; 83540; 85610; 85730

== ENCOUNTER → 2018-05-30 08:19 | Outpatient (CLI) | payer OTHER, SELFPAY ==
--- NOTE | 2018-05-30 08:28 | US_ITS ---
STUDY: ABDOMINAL ULTRASOUND - RIGHT UPPER QUADRANT REASON FOR VISIT: Male, 52 years old. Right abdominal pain for 4 months. TECHNIQUE: Ultrasound evaluation of the right upper quadrant was performed with real-time and static salomon-scale imaging. TECHNICAL QUALITY: Adequate. COMPARISON: CT abdomen and pelvis May 23, 2018. FINDINGS: Liver: The liver measures 24 cm. There is increased echogenicity consistent with fatty infiltration. The bile ducts are within normal limits. There is hepatic color flow. The direction of portal flow is hepatopetal. There is no demonstrated mass lesion. Gallbladder: Distended gallbladder. The gallbladder wall measures 3 mm. Negative sonographic Narvaez's sign. Pericholecystic fluid. Gallbladder sludge. Common Bile Duct (C.B.D.): The common bile duct measures 4 mm. Pancreas not visualized due to overlying bowel gas. Right Kidney: Normal size of the right kidney. The right kidney measures 12.3 cm. Normal renal cortex. The right cortex measures 2.1 cm. There is no demonstrated renal mass or cyst. There is no right hydronephrosis. Small amount of ascites adjacent to liver. US/Abdomen Limited IMPRESSION: Hepatomegaly with fatty liver. Distended gallbladder with small amount of gallbladder sludge. Pericholecystic fluid which may be secondary to cholecystitis or chronic liver disease. Small amount of abdominal ascites. Consider surgical consult. Electronically Signed: Franklin Melgar MD at 4:25 EST , Service support ,
== END ==
LOC: US 08:19
PROVIDERS: Family Provider Family Medicine; PCP Family Medicine; Referring Provider Family Medicine; Visit Provider Family Medicine
DX: S30.1XXA Contusion of abdominal wall, initial encounter (principal)
CPT/HCPCS: 76705

== ENCOUNTER → 2018-06-01 12:33 | Outpatient (CLI) | payer OTHER, SELFPAY ==
--- NOTE | 2018-06-01 13:22 | CT_ITS ---
STUDY: CTA CHEST REASON FOR EXAM: Male, 52 years old. Chest pain and shortness of breath. Weight gain. RADIATION DOSAGE (If Supplied By Facility): CTDIvol = ( 58.67 ) mGy, DLP = ( 1345.19 ) mGycm TECHNIQUE: The examination was performed with the intravenous administration of Isovue 370 100ML IV. Post-processing of the angiographic images was performed, with multiplanar reformation and 3D reconstruction. Individualized dose optimization techniques were used for this CT. COMPARISON: None. FINDINGS: Normal enhancement of the main pulmonary artery and right and left pulmonary arteries. Normal enhancement of the bilateral peripheral pulmonary arteries. There is no demonstrated pulmonary embolism. There is atherosclerotic calcification of the aortic arch with tortuosity. There is no demonstrated aortic dissection. Normal heart and pericardium. Normal mediastinum. Normal hilar regions. Normal visualized trachea and bronchi. The lungs are well expanded. Small bilateral pleural effusions with dependent atelectasis. Normal pleura. Normal chest wall structures. There are degenerative changes of thoracic spine. Ascites seen in the upper abdomen. CT/CTA Chest W/WO Contrast IMPRESSION: Small bilateral pleural effusions with underlying bibasilar atelectasis. Ascites. Electronically Signed: Joaquin Bergeron MD at 14:10 EST , Service support ,
== END ==
PROVIDERS: Family Provider Family Medicine; PCP Family Medicine; Referring Provider Family Medicine; Visit Provider Family Medicine
DX: R06.00 Dyspnea, unspecified (principal)
CPT/HCPCS: 71275; Q9967

== ENCOUNTER → 2018-06-07 16:37 | Outpatient (CLI) | payer SELFPAY ==
[2018-06-02 14:13] VITALS: BMI 43.8
[2018-06-07 17:43] LABS: Hematocrit 38.9 % (40-54); Hemoglobin 11.8 g/dl (13.0-16.5); Mean Corp Hgb Conc 30.3 g/gl (32-36); Mean Corpuscular Hgb 26.6 pg (27.0-32.0); Mean Corpuscular Volume 87.8 fL (80-94); Mean Platelet Vol. 10.7 fl (6.2-12.0); Platelet Count 167 K/mm3 (150-450); RBC Distribution Width CV 16.7 % (11.6-14.6); RBC Distribution Width SD 52.9 fl (35.1-43.9); Red Blood Count 4.43 M/mm3 (4.6-6.2); Scan Indicated on CBC? Y/N NO; White Blood Count 4.7 K/mm3 (4.4-11.0)
[2018-06-07 18:14] LABS: ALB/GLOB Ratio 1.4 RATIO (0.9-2.4); AST(SGOT) 15 U/L (15-37); Alanine Aminotransfer ALT/SGPT 15 U/L (16-61); Albumin, Serum 4.2 g/dL (3.2-5.0); Alkaline Phosphatase 59 U/L (45-117); Anion Gap 10 (5-15); BUN 10 mg/dL (7-18); BUN/Creat Ratio 13.8 RATIO (10-20); Calcium,Total 9.2 mg/dL (8.5-10.1); Chloride 103 mmol/L (98-107); Creatinine, Serum 0.72 mg/dL (0.70-1.30); EST Glomerular Filtration Rate 121 mL/min (>60); Est Glom Filt Rate - Afr Amer 147 mL/min (>60); Globulin 3.1 g/dL (2.2-4.2); Glucose 65 mg/dL (74-106); Protein, Total 7.3 g/dL (6.4-8.2); Sodium Level 142 mmol/L (136-145)
[2018-06-07 18:17] LABS: BNP,B-Type NATRIURETIC PEPTIDE 79.6 pg/mL (0-100)
== END ==
PROVIDERS: Family Provider Family Medicine; PCP Family Medicine; Referring Provider Family Medicine; Visit Provider Family Medicine
DX: R18.8 Other ascites (principal)
CPT/HCPCS: 36415; 80053; 83880; 84134; 85027

== ENCOUNTER → 2018-06-29 16:03 | Outpatient (CLI) | payer OTHER, SELFPAY ==
[2018-06-08 10:03] VITALS: BMI 59.5
[2018-06-29 17:48] LABS: Anion Gap 5 (5-15); BUN 16 mg/dL (7-18); BUN/Creat Ratio 20.7 RATIO (10-20); Calcium,Total 8.9 mg/dL (8.5-10.1); Chloride 103 mmol/L (98-107); Creatinine, Serum 0.77 mg/dL (0.70-1.30); EST Glomerular Filtration Rate 112 mL/min (>60); Est Glom Filt Rate - Afr Amer 136 mL/min (>60); Glucose 66 mg/dL (74-106); Sodium Level 141 mmol/L (136-145)
== END ==
PROVIDERS: Family Provider Family Medicine; PCP Family Medicine; Referring Provider Family Medicine; Visit Provider Family Medicine
DX: I10 Essential (primary) hypertension (principal)
CPT/HCPCS: 36415; 80048

== ENCOUNTER → 2018-06-29 16:56 | Outpatient (CLI) | payer OTHER, SELFPAY ==
[2018-06-08 10:03] VITALS: BMI 59.5
--- NOTE | 2018-06-29 16:33 | VDLE_ITS ---
Reason For Study: EDEMA RIGHT GSV is normal. CFV is compressible, spontaneous, phasic, competent and demonstrates normal augmentation. FV is compressible, spontaneous, phasic, competent and demonstrates normal augmentation. POP V is compressible, spontaneous, phasic, competent and demonstrates normal augmentation. T/P Trunk is compressible. Rt Distal FV is not well visualized due to pt body habitus. Rt PTV is compressible at the ankle but cannot be visualized for the remainder of the vessel . Rt PeroV is compressible at the ankle but cannot be visualized for the remainder of the vessel. . Procedure Exam performed in department. Per pt he has gained 90 pounds of fluid over last 2 months- DVT study was very limited visualization. The exam was of poor technical quality due to body habitus. A preliminary report was called and/or faxed to Dr Mondragon. Interpretation Summary Deep veins of the right lower extremity are patent and compressible segmentally. There is no evidence of right lower extremity deep vein thrombosis. Valvular competence appears intact within the proximal deep venous system on the right . The right greater saphenous vein appears patent and compressible segmentally. The right distal femoral vein was not well visualized. Portions of the right posterior tibial vein and right peroneal vein were not visualized due to edema and the patient's body habitus. Ordering Physician: Stanley Mondragon Referring Physician: Stanley Mondragon Performed By: Sharon Araujo, RDCS, RVT
== END ==
PROVIDERS: Family Provider Family Medicine; PCP Family Medicine; Referring Provider Family Medicine; Visit Provider Family Medicine
DX: R60.0 Localized edema (principal)
CPT/HCPCS: 93971

== ENCOUNTER → 2018-08-01 | Outpatient (CLI) | payer OTHER, SELFPAY ==
[2018-06-08 10:03] VITALS: BMI 59.5
[2018-08-01 15:46] LABS: Bacteria 0 SEEN /hpf (None Seen); Mucous, Urine 0 SEEN /hpf (<or=2+)
[2018-08-01 17:50] LABS: ALB/GLOB Ratio 1.2 RATIO (0.9-2.4); AST(SGOT) 14 U/L (15-37); Alanine Aminotransfer ALT/SGPT 15 U/L (16-61); Albumin, Serum 4.2 g/dL (3.2-5.0); Alkaline Phosphatase 62 U/L (45-117); Anion Gap 7 (5-15); BUN 18 mg/dL (7-18); Calcium,Total 9.1 mg/dL (8.5-10.1); Chloride 104 mmol/L (98-107); Creatinine, Serum 0.78 mg/dL (0.70-1.30); EST Glomerular Filtration Rate 110 mL/min (>60); Est Glom Filt Rate - Afr Amer 134 mL/min (>60); Globulin 3.5 g/dL (2.2-4.2); Glucose 123 mg/dL (74-106); Potassium 3.9 mmol/L (3.5-5.1); Prealbumin 16.1 mg/dL (20.0-40.0); Protein, Total 7.7 g/dL (6.4-8.2); Sodium Level 141 mmol/L (136-145)
[2018-08-01 17:58] LABS: Hematocrit 36.7 % (40-54); Hemoglobin 11.2 g/dl (13.0-16.5); Mean Corp Hgb Conc 30.5 g/gl (32-36); Mean Corpuscular Hgb 26.1 pg (27.0-32.0); Mean Corpuscular Volume 85.5 fL (80-94); Mean Platelet Vol. 10.3 fl (6.2-12.0); Platelet Count 182 K/mm3 (150-450); RBC Distribution Width CV 16.1 % (11.6-14.6); RBC Distribution Width SD 50.6 fl (35.1-43.9); Red Blood Count 4.29 M/mm3 (4.6-6.2); White Blood Count 4.9 K/mm3 (4.4-11.0)
[2018-08-01 17:59] LABS: Scan Indicated on CBC? Y/N NO
[2018-08-01 18:28] LABS: Color, Urine Yellow (Yellow); Glucose, Dipstick Normal (Normal); Ketone-Dipstick Negative (Negative); Leukocyte Esterase-Dipstick Negative /ul (Negative); Nitrite-Dipstick Negative (Negative); Occult Blood-Urine 150 /ul (Negative); Protein-Dipstick 15 mg/dl (Negative); Urine Bilirubin Dipstick Negative (Negative); Urine Clarity Clear (Clear); Urine Urobilinogen 1 mg/dl (Normal)
[2018-08-01 19:10] LABS: Red Blood Cells-Urine 0-5 SEEN /hpf (0-5); Squamous Epithelial Cells - UA 0-5 SEEN /hpf (0-5); White Blood Cells 0-5 SEEN /hpf (0-5)
[2018-08-01 19:11] LABS: Calcium Oxalate Crystals Ur 1+ /hpf (<or=2+)
== END | disposition home or self-care (01) ==
LOC: MFPLAB 15:39
PROVIDERS: Family Provider Family Medicine; PCP Family Medicine; Visit Provider Family Medicine
DX: R31.9 Hematuria, unspecified (principal); R18.8 Other ascites
CPT/HCPCS: 36415; 80053; 81001; 84134; 85027; 87086; 87088

== ENCOUNTER → 2018-08-08 | Outpatient (CLI) | payer OTHER, SELFPAY ==
[2018-06-08 10:03] VITALS: BMI 59.5
--- NOTE | 2018-08-08 10:58 | US_ITS ---
STUDY: ABDOMINAL ULTRASOUND REASON FOR VISIT: Male, 53 years old. Ascites TECHNIQUE: Ultrasound evaluation of the 4 abdominal quadrants was performed with real-time and static salomon-scale imaging. TECHNICAL QUALITY: Adequate. COMPARISON: 06/09/2018 FINDINGS: There is a moderate amount of ascites noted. US/Abdomen Limited IMPRESSION: Moderate amount of ascites. Electronically Signed: Doron Eugene, at 19:12 EDT Tel , Service support ,
== END | disposition home or self-care (01) ==
LOC: US 10:17
PROVIDERS: Family Provider Family Medicine; PCP Family Medicine; Referring Provider Family Medicine; Visit Provider Family Medicine
DX: R18.8 Other ascites (principal)
CPT/HCPCS: 76705

== ENCOUNTER → 2018-08-25 | Outpatient (CLI) | payer OTHER, SELFPAY ==
[2018-08-08 13:24] VITALS: BMI 59.5
--- NOTE | 2018-08-25 11:43 | US_ITS ---
PROCEDURE: Ultrasound guided paracentesis. DATE OF EXAMINATION: August 25, 2018. INDICATION: Male, 53 years old. Ascites. PHYSICIAN: Joaquin Bergeron M.D. TECHNIQUE: The risks, benefits, and alternatives to the procedure were explained to the patient. The specific risks of bleeding, infection, and damage to bowel were detailed and accepted. Witnessed informed consent was obtained. The abdomen was ultrasonographically surveyed. An appropriate pocket of fluid was identified at the right lower quadrant. The skin were cleaned and prepped in the usual sterile fashion. Using ultrasound guidance, the peritoneal cavity was accessed with a 5-Cuban paracentesis needle/catheter system. The trocar was removed. A total of 5570 ml of karley-colored fluid were removed from the peritoneal cavity. A 120 mL sample was sent to the laboratory. The catheter was removed and a sterile dressing was applied. The procedure was well tolerated. US/Paracentesis with US IMPRESSION: Ultrasound guided paracentesis. Electronically Signed: Joaquin Bergeron, at 14:03 EDT , Service support ,
[2018-08-25 11:53] LABS: International Normalized Ratio 1.3; Prothrombin Time (Protime)PT. 15.7 SECONDS (11.7-14.9)
[2018-08-25 11:54] LABS: Partial Thromboplast Time 32.3 Seconds (24.1-36.2)
[2018-08-25 12:13] LABS: ALB/GLOB Ratio 1.2 RATIO (0.9-2.4); AST(SGOT) 12 U/L (15-37); Alanine Aminotransfer ALT/SGPT 12 U/L (16-61); Albumin, Serum 4.2 g/dL (3.2-5.0); Alkaline Phosphatase 63 U/L (45-117); Amylase 50 U/L (25-115); Anion Gap 4 (5-15); BUN 15 mg/dL (7-18); BUN/Creat Ratio 18.8 RATIO (10-20); Calcium,Total 8.9 mg/dL (8.5-10.1); Chloride 103 mmol/L (98-107); EST Glomerular Filtration Rate 108 mL/min (>60); Est Glom Filt Rate - Afr Amer 131 mL/min (>60); Globulin 3.4 g/dL (2.2-4.2); Glucose 150 mg/dL (74-106); LDH 154 U/L (87-241); Potassium 4.2 mmol/L (3.5-5.1); Protein, Total 7.6 g/dL (6.4-8.2); Sodium Level 140 mmol/L (136-145)
[2018-08-25 13:38] VITALS: BP 144/88; BP 147/71; BP 148/83; PULSE 57; PULSE 61; PULSE 75; RESP 16; O2SAT 96; O2SAT 98
[2018-08-25 14:30] LABS: Body Fluid Mononuclear WBC # 0.394 10^3/uL; Body Fluid Mononuclear WBC % 76.7 %; Body Fluid Polynuclear WBC % 23.3 %; Body Fluid Total Cells Counted 0.628 10^3/ul
[2018-08-25 14:50] LABS: Glucose, Body Fluid 148 mg/dL (40-70); LDH,Body Fluid 101 Units/l (Not Establ.); Protein, Body Fluid 4.8 g/dL (Not Establ.)
[2018-08-25 14:59] LABS: Auto B Fluid Analyzer BKGD Ct COUNTS W/IN LIMITS (W/IN LIMITS)
[2018-08-25 15:00] LABS: Appearance/Body Fluid SL CLDY; Color/Body Fluid LT YEL; Source- Body Fluid OTHER
[2018-08-25 15:02] LABS: White Blood Count/Body Fluid 149 /mm3
[2018-08-25 15:03] LABS: Red Cell Count/Body Fluid 278 /mm3
[2018-08-25 15:22] LABS: Body Fluid QC Type(s) BF1Q,BF2Q; Lymphocytes 26 %; Macrophages 48 %; Monocytes 2 %; Neutrophil (Segs) 24 %
[2018-08-26 09:39] LABS: Amylase Body Fluid 26 U/L (.)
[2018-08-26 14:54] LABS: Pathologist Comment/Body Fluid Reviewed
== END | disposition home or self-care (01) ==
PROVIDERS: Family Provider Family Medicine; PCP Family Medicine; Referring Provider Family Medicine; Visit Provider Family Medicine
DX: R18.8 Other ascites (principal)
CPT/HCPCS: 36415; 49083; 80053; 82150; 82945; 83615; 84157; 85610; 85730; 87070; 87075; 87205; 89050

== ENCOUNTER → 2018-09-28 | Outpatient (CLI) | payer OTHER, SELFPAY ==
[2018-06-08 10:03] VITALS: BMI 59.5
[2018-08-08 13:24] VITALS: BMI 59.5
== END | disposition home or self-care (01) ==
LOC: SL 20:04
PROVIDERS: Family Provider Family Medicine; PCP Family Medicine; Referring Provider Family Medicine; Visit Provider Family Medicine
DX: G47.30 Sleep apnea, unspecified (principal)
CPT/HCPCS: 95810

== ENCOUNTER → 2018-10-05 | Outpatient (CLI) | payer OTHER, SELFPAY ==
[2018-08-08 13:24] VITALS: BMI 59.5
[2018-10-05 12:29] LABS: Hematocrit 39.8 % (40-54); Hemoglobin 12.2 g/dl (13.0-16.5); Mean Corp Hgb Conc 30.7 g/gl (32-36); Mean Corpuscular Hgb 25.4 pg (27.0-32.0); Mean Corpuscular Volume 82.7 fL (80-94); Mean Platelet Vol. 10.3 fl (6.2-12.0); Platelet Count 176 K/mm3 (150-450); RBC Distribution Width CV 16.4 % (11.6-14.6); RBC Distribution Width SD 49.4 fl (35.1-43.9); Red Blood Count 4.81 M/mm3 (4.6-6.2); White Blood Count 5.3 K/mm3 (4.4-11.0)
[2018-10-05 12:36] LABS: Scan Indicated on CBC? Y/N NO
[2018-10-05 13:25] LABS: ALB/GLOB Ratio 1.3 RATIO (0.9-2.4); AST(SGOT) 13 U/L (15-37); Alanine Aminotransfer ALT/SGPT 15 U/L (16-61); Albumin, Serum 4.4 g/dL (3.2-5.0); Alkaline Phosphatase 65 U/L (45-117); Anion Gap 11 (5-15); BUN 15 mg/dL (7-18); BUN/Creat Ratio 18.2 RATIO (10-20); Chloride 99 mmol/L (98-107); Cholesterol 116 mg/dL (200); Creatinine, Serum 0.82 mg/dL (0.70-1.30); EST Glomerular Filtration Rate 104 mL/min (>60); Est Glom Filt Rate - Afr Amer 126 mL/min (>60); Globulin 3.4 g/dL (2.2-4.2); Glucose 177 mg/dL (74-106); High Density Lipoprotein 39 mg/dL; Potassium 4.2 mmol/L (3.5-5.1); Protein, Total 7.8 g/dL (6.4-8.2); Sodium Level 139 mmol/L (136-145); Triglycerides 125 mg/dL; Very Low Density Lipoprotein 25 mg/dL (5-40)
== END | disposition home or self-care (01) ==
LOC: MFPLAB 10:39
PROVIDERS: Family Provider Family Medicine; PCP Family Medicine; Referring Provider Family Medicine; Visit Provider Family Medicine
DX: E11.65 Type 2 diabetes mellitus with hyperglycemia (principal); I48.91 Unspecified atrial fibrillation
CPT/HCPCS: 36415; 80053; 80061; 85027

== ENCOUNTER → 2018-11-02 | Outpatient (CLI) | payer OTHER, SELFPAY ==
[2018-08-08 13:24] VITALS: BMI 59.5
== END | disposition home or self-care (01) ==
LOC: SL 23:19
PROVIDERS: Family Provider Family Medicine; PCP Family Medicine; Referring Provider Family Medicine; Visit Provider Family Medicine
DX: G47.33 Obstructive sleep apnea (adult) (pediatric) (principal)
CPT/HCPCS: 95811

== ENCOUNTER → 2018-11-18 | Outpatient (CLI) | payer OTHER, SELFPAY ==
[2018-08-08 13:24] VITALS: BMI 59.5
== END | disposition home or self-care (01) ==
LOC: SL 13:21
PROVIDERS: Family Provider Family Medicine; PCP Family Medicine; Referring Provider Family Medicine; Visit Provider Family Medicine
DX: G47.33 Obstructive sleep apnea (adult) (pediatric) (principal)

== ENCOUNTER → 2018-11-22 | Outpatient (CLI) | payer OTHER, SELFPAY ==
[2018-08-08 13:24] VITALS: BMI 59.5
--- NOTE | 2018-11-23 08:13 | PFT ---
INTRODUCTION: The patient is a 53-year-old male who presents for pulmonary function studies prior to enrolling in pulmonary rehab. Respiratory therapy reports good patient effort. Bronchodilators were used during testing. INTERPRETATION: Forced expiration spirometry demonstrates the presence of a moderately severe large airways obstructive ventilatory defect. There was no significant response to aerosolized bronchodilators. Spirograms are of good quality and do not plateau indicating slow emptying of the lungs. Body plethysmography was performed and reveals a decreased TLC to 5.21 L, 77% of predicted, indicative of a mild restrictive ventilatory impairment. Diffusing capacity by single breath CO is moderately reduced at 58% of predicted. IMPRESSION: Irreversible moderately severe mixed ventilatory impairment with symmetric reduction in diffusing capacity.
== END | disposition home or self-care (01) ==
LOC: PSN 12:51
PROVIDERS: Family Provider Family Medicine; PCP Family Medicine; Referring Provider Family Medicine; Visit Provider Family Medicine
DX: J44.9 Chronic obstructive pulmonary disease, unspecified (principal)
CPT/HCPCS: 94060; 94726; 94729

== ENCOUNTER → 2018-11-29 | Outpatient (CLI) | payer OTHER, SELFPAY ==
[2018-08-08 13:24] VITALS: BMI 59.5
--- NOTE | 2018-11-29 11:55 | PCM.PR.TP ---
General Information - General Information Admitting Diagnosis: COPD, MILAGRO, ASTHMA Gold Classification:: GOLD 2: Moderate - PFT FEV1:: 2.04 - 52% FVC:: 3.12 - 62% FEV1/FVC%:: 65 - 84 - Education/Goals Barriers to Learning: None Individual Counseling: Initial Assessment: Dyspnea control techniques at rest, activity, and ADLs, ADL management and pacing, Nutrition & weight management - REFERRED TO STRUCTURED WEIGHT LOSS PROGRAM - DIETITIAN, Home exercise plan & guidelines - ENCOURAGED HOME ACTIVITY-EXERCISE WALKING Patient Goals: Breathe better: Initial Assessment, Increase endurance/stamina: Initial Assessment, Return to recreation/hobby: Initial Assessment, Symptom management: Initial Assessment, Improve weight: Initial Assessment Exercise - Initial Assessment - Visit Date of Eval: 11/29/18 - Problem/Goals Problems: Deconditioning, No regular exercise, Knowledge deficit exercise guidelines, Knowledge deficit exercise safety Goals:: Aerobic exercise 30-60 mins x 9 weeks - Physician Prescribed Exercise Modalities: Treadmill, NuStep, SciFit Frequency (days/week): 3 Duration (Minutes):: 30-45 MIN Intensity: 60-80% age predicted maximum heart rate reserve METs - Progression: 0.5-1.0 MET, RPE 11-14 WEEK: 2.1 Target Heart Rate:: 109-142 - Plan Plan and Plan to Review:: Benefits of exercise, Core components of exercise, How to measure dyspnea level, How to monitor dyspnea level, Exercise intensity, Exercise safety guideline, Home exercise guidelines, Mayte: 3-4/11-13 Disease Management - Initial - Problems/Goals-Hypoxemia Hypoxemia Problems:: Hypoxemia Hypoxemia Goals:: Hypoxemia managed - Problems/Goals-Medications Medication Goals: Correct technique/timing & care of MDI, DPI, nebulizer, and spacer. - Problems/Goals-Bronchial Hygiene Bronchial Hygiene Goals:: Pt demonstrates effective cough, effective secretion clearance. - Initial Assessment FiO2:: 21 Does pt report taking home meds as prescribed?: Yes Medications: Yes MDI Patient Reports:: No cough - Plans Hypoxemia Plan:: Monitor SpO2 rest & with exercise, Train O2 safety & systems Reviewed prescribed medications:: Purpose, Schedule, Side effects, Importance of compliance Instruct correct technique/timing & care:: MDI, DPI, Nebulizer, Return demo use of inhaler Bronchial Hygiene Plan: Controlled cough, Vibratory PEP device, Hand hygiene, When to call MD, Signs/symptoms to report:, Cleaning of respiratory equipment Psychosocial - Initial Assess - Problems/Goals Problems: Impaired Q.O.L. - Psychosocial Test Depression:: Impaired QOL Referred to MD for counseling:: No - Plan Reviewed screening results: Yes Instructions given regarding:: Benefits of exercise, Relaxation techniques, Training in coping strategies Tobacco - Initial Assessment - Program Goals Tobacco Program Goals: Complete smoking cessation. Attend education classes. Improve Knowledge Test score - Stage of Change Stages of Change:: Action - Learning Barriers Learning Barriers: Ready to Learn - Family Support Do you have family support?: Yes - Tobacco Use Tobacco Use: Non-smoker How long ago did you quit using tobacco products?: Greater than or equal to 6 months ago Years Smokin Do you use smokeless tobacco?: No - Intervention Smoking Cessation Referral:: No Individual Education/Counseling:: No Education Schedule Given:: Yes - Education Gave Education Materials For:: Pulmonary Disease, Risk Factors, Breathing Techniques, Medical Compliance, Pulmonary A&P, Exacerbation Signs & Symptoms, Stress & Relaxation Nutrition/Wt Mgmt - Initial - Problems/Goals Problems: Overweight Goals: Wt Loss 1-2 lbs per week - Weight Management Knowledge Deficit Management of:: Overweight, Role of exercise in weight control Admit Height:: 6 ft Admit Weight:: 429 lb Admit BMI:: 58.1 - Diabetes Diabetes:: Yes Fasting blood glucose:: 177 - 10/05/2018 Insulin: No Do you monitor your blood sugar at home?: Yes - METFORMIN 1,000 MG BID - Intervention Referral to dietitian:: Yes Referral to Diabetic Clinic:: Yes Will attend diet classes:: Yes - Plan Nutrition Plan: Yes Review BMI or WC & identify target wt & strategies for wt control, Yes Nutrition education class:, Yes Weight control education class:, Yes Education re: Need for ongoing weight monitoring, Yes Food diary: - THROUGH WHY WEIGHT PROGRAM, Yes Physical activity log: - THROUGH WHY WEIGHT PROGRAM Patient Health Questionnaire Initial Assessment 1. Little interest or pleasure in doing things: More than half the days 2. Feeling down, depressed, or hopeless: Not at all 3. Trouble falling or staying asleep, or sleeping too much: Several days 4. Feeling tired or having little energy: Not at all 5. Poor appetite or overeating: More than half the days 6. Feeling bad about yourself -- or that you are a failure or have let yourself or your family down: Not at all 7. Trouble concentrating on things, such as reading the newspaper or watching television: Not at all 8. Moving or speaking so slowly that other people could have noticed. Or the opposite - being so fidgety or restless that you have been moving around a lot more than usual: Not at all 9. Thoughts that you would be better off , or of hurting yourself in some way: Not at all How difficult have these problems made it for you to do your work, take care of things at home, or get along with other people?: Not difficult at all Total Score: 5 COPD Knowledge Test Initial COPD is a lung disease that:: Makes it hard to breathe & gets worse over time In the [place] the term COPD describes 2 main lung conditions:: Emphysema & pulmonary hypertension The most common lung irritant that causes COPD is:: Cigarette smoke Common signs and symptoms of COPD include:: An ongoing cough/cough that produces a large amount of mucus, & SOB If you have COPD, what steps can you take?: All of the above Swelling of the ankles is common in COPD:: False Fatigue [tiredness] is common in COPD:: True Wheezing is common in COPD:: True Crushing chest pain is common in COPD:: False Rapid weight loss is common in COPD:: False Breathlessness is a normal response to exercise: True Exercise should be avoided if it makes you short of breath: True All bronchodilators act within 10 minutes: True A spacer device increases the medication to the lungs: True Annual flu vaccine is recommended for pts w/lung disease: True COPD Knowledge Test Total Score:: 12 COPD Assessment Test [CAT] - Questions Never cough = 0, Cough all the time = 5: 1 No phlegm = 0, Chest full of phlegm = 5: 1 No chest tightness = 0, Chest very tight = 5: 1 No breathless w/exertion = 0, Very breathless w/exertion = 5: 4 No limitations w/activity = 0, Very limited w/activity = 5: 3 Confident leaving home = 0, Not at all confident = 5: 1 Sleep soundly = 0, Don't sleep soundly = 5: 1 Lots of energy = 0, No energy at all = 5: 1 Total CAT score:: 13 Self-Efficacy Initial Assessment We would like to know how confident you are in doing certain activities. Please select your confidence level for:: Select your confidence level for the following using the scale 1-10 where 1 is not at all confident and 10 is totally confident. Your score is the average of all 6 responses. Fatigue: How confident are you that you can keep the fatigue caused by your disease from interfering with the things you want to do? Select Number: 3 Physical Discomfort or Pain: How confident are you that you can keep the physical discomfort or pain of your disease from interfering with the things you want to do? Select Number: 6 Emotional Distress: How confident are you that you can keep the emotional distress caused by your disease from interfering with the things you want to do? Select Number: 5 Other Symptoms or Health Problems: How confident are you that you can keep other symptoms or health problems from interfering with the things you want to do? Select Number: 3 Different Tasks and Activities: How confident are you that you can do the different tasks and activities needed to manage your health condition so as to reduce your need to see a doctor? Select Number: 6 Medication: How confident are you that you can do things other than just taking medication to reduce how much your illness affects your everyday life? Select Number: 6 Total Score:: 4 Nutrition Survey - Nutrition Survey Instructions Scoring Instructions: Scoring is as follows: Yes = 1 points. No = 0 point. Patient score that is >/=12 is considered to be at potential nutritional risk and could benefit from a referral to a registered dietitian. - Nutrition Survey Initial Have you lost >10 lbs over the past 2 months without trying?: No Are you following a special diet at home for diabetes, low fat, or low salt?: Yes Are you interested in meeting with a dietitian for help understanding your diet?: Yes Do you eat less than 3 meals a day?: No Do you eat fatty meats (lorenz, sausage, ribs, etc), fried foods, desserts, large amounts of salad dressings, margarine, butter, or cheese most days?: Yes Do you have food allergies? [Enter types in comment field]: No Do you eat in restaurants more than 3 times a week?: Yes Do you season food with salt, seasoning salt, or garlic salt?: No Do you used canned, boxed, frozen meals, or soups, seasoning packets?: Yes Total Score:: 5
--- NOTE | 2018-11-29 11:56 | PCM.PR.HP ---
History of Present Illness Arrival date:: 11/29/18 Arrival time:: 11:56 Date of Referral:: 11/15/18 Date of Evaluation: 11/29/18 Referring Physician: DR. LINDA JALLOH Primary Diagnosis: COPD, MILAGRO History of Present Illness: PATIENT IS A 53 YR OLD MALE WHO PRESENTS TO PULMONARY REHAB TODAY FOR EVALUATION & ASSESSMENT. THE PATIENT RECENTLY WAS DIAGNOSED WITH COPD, MILAGRO AND ALSO SEES DR. PRITCHETT FOR CARDIAC RELATED ISSUES OF CHRONIC ATRIAL FIBRILLATION AND RBBB. mMRC Breathless Scale: When is the patient short of breath? Y/N Grade: Description of Breathlessness: 0 I only get breathless with strenuous exercise. 1 I get short of breath when hurrying on level ground or walking up a slight hill. 2 On level ground, I walk slower than people of the same age because of breathless, or have to stop for breath when walking at my own pace. 3 I stop for breath after walking 100 yards or after a few minutes on level ground. 4 I am too breathless to leave the house or I am breathless when dressing. Respiratory Problems: Yes: Retain Secretions, Able to Speak in Full Sentences, Dyspnea with Activity No: Wheezing, Anxiety, Panic, Dyspnea at Rest, Cough with Secretions Home Medications: Home Medications Atorvastatin Calcium [Lipitor] 10 mg PO QHS 01/29/15 Lisinopril [Zestril] 5 mg PO DAILY 01/29/15 Betaxolol HCl 10 mg PO DAILY 03/03/17 Metformin HCl 1,000 mg PO BID 03/03/17 diltiazem CD 120 mg capsule,extended release 24 hr 360 mg PO DAILY cap 06/07/18 budesonide-formoterol HFA 80 mcg-4.5 mcg/actuation aerosol inhaler INHALATION 30 Days #10 g 08/08/18 furosemide 40 mg tablet 40 mg PO BID tab 08/08/18 meclizine 25 mg tablet 25 mg PO Q6H PRN 8 Days #32 tab 08/08/18 vitamin B complex tablet 1 tab PO DAILY 08/08/18 warfarin 10 mg tablet 10 mg PO DAILY 08/08/18 warfarin 4 mg tablet 4 mg PO DAILY 08/08/18 Allergies/Adverse Reactions: Allergies adhesive tape Allergy (Verified 08/08/18 13:13) Rash codeine Allergy (Verified 08/08/18 13:13) rash levofloxacin [From Levaquin] Allergy (Verified 08/08/18 13:13) hives and swelling oxycodone Allergy (Verified 08/08/18 13:13) hives Hx of Sleep Apnea: Yes Do you snore loudly (louder than talking or can be heard through closed doors)?: Yes - RECENTLY FITTED WITH CPAP THROUGH [facility] Medical Utilization Do you use a peak flow meter at home?: No Do you use a spacer device with your inhalers?: No Number of hospital visits in the last year?: - JANUARY 2018 BR[facility] Number of emergency room visits in the last year?: 1 - BR[facility]CHITIS/ADMITTED Do you see your physician on a regular schedule?: Yes How often?: EVERY 3 MONTHS; LATELY MONTHLY Advanced Directives - Advanced Directives Power of Auto Claims Adjuster: No Living Will: No Advance Directives Information Provided: No Advance Directives on File: No DNR Order?:: No - MOLST See MOLST form: No Past Medical History Medical History: Past Medical History (Last Reviewed 06/09/18 @ 12:22 by Ehsan Bagley MD) Right bundle branch block (RBBB) (Chronic) I45.10 Secondary pulmonary arterial hypertension (Chronic) I27.21 Chronic atrial fibrillation (Chronic) I48.2 Essential (primary) hypertension (Chronic) I10 Hypercholesteremia (Chronic) E78.00 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 COPD (chronic obstructive pulmonary disease) J44.9 Cellulitis of right leg L03.115 Obstructive sleep apnea G47.33 Sciatica M54.30 Super-super obese E66.01 Type 2 diabetes mellitus E11.9 Venous hypertension, chronic I87.309 Venous insufficiency I87.2 Venous ulcer of right leg I83.019, L97.919 Mild intermittent asthma (Inactive) J45.20 Super-super obese (Inactive) E66.9 Swelling of lower limb (Inactive) M79.89 Venous hypertension, chronic, with ulcer and inflammation (Inactive) I87.339 Surgical History: Past Surgical History (Last Reviewed 06/09/18 @ 12:22 by Ehsan Bagley MD) penile reconstruction - Current/ Previous Services Pulmonary Rehab:: No Social History - Smoking History Smoking Status: Former smoker Years Smokin Packs Smoked per Day: 1 Hx Smoking Cessation Date: 2015 Hx Tobacco Use: Yes Hx Smoking Exposure: Yes - Alcohol Use Alcohol Usage: No - Substance Abuse Hx Substance Use: No - Occupation Occupation (List type of work in comments):: Unemployed - Hobbies, Recreation, Social Activities Hobbies: Sports - SEE OTHER;, Other - TARGET SHOOTING, HUNTING, GOLFING, Recreational Activities: I am able to engage in most, but not all activities - LIMITED WITH AMOUNT OF TIME CAN DO ACTIVITY; AFTER 10-15 MINUTES GETS VERY SHORT OF BREATH AND TIRED. Functioning ADL/IADL - Current Ability Current Ability: Independent Self-Care (e.g.,grooming, dressing, & bathing), Independent Ambulation, Independent Transfer, Independent Household tasks (e.g., light meal prep, laundry, shopping) - Pt Functioning Prior to Problem Prior Functioning: Self-Care (e.g.,grooming, dressing, & bathing): Independent, Ambulation: Independent, Transfer: Independent, Household tasks (e.g., light meal prep, laundry, shopping): Independent Social Environment - Status Marital Status: Single - Current Living Arrangements Living Environment:: Family - BASEMENT APRARTMENT BELOW GRANDMOTHER - Children Do any of your children live nearby?: No - Safety Do you feel safe in your surroundings?: Yes - Assistance Do you need any assistance at home?: NONE Review of Systems Review of Systems: Right click = Denies ([place]). Left click = Reports ([place]) Respiratory: Reports: Appetite, Normal, Dizziness/Lightheadedness, Fatigue, Sleep, Normal. Denies: Cough, SOB at Rest, Sputum production, Wheezing Is Patient Pain Free?: Yes Pain Location: none Pain Level: 0/10 Risk Factor Assessment - Chief Complaint Chief Complaint: COPD, MILAGRO, ASTHMA, CHRONIC ATRIAL FIBRILATION, RBBB, TYPE II DM, AND EXOGENOUS OBESITY. - Vital Signs Temperature: 98.7 F Pulse Rate: 75 Respiratory Rate: 18 Pulse Ox: 95 Blood Pressure: 142/64 Nailbeds:: PINK - Diabetes Diabetic History: Type II, Medication Dependent - METFORMIN 1,000MG BID AND GLYBERIDE. - Obesity Height: 6 ft Weight:: 429 lb Weight in Pounds: 429.0 lbs Weight Source: Standing Scale Body Mass Index (BMI): 58.1 Nutritional Referral for Obesity: Yes - Physical Activity Physical Inactivity: None - Risk Stratification Risk Guidelines: Lowest Risk: Risk Factor for Smoking, Risk Factor for Dyslipidemia, Risk Factor for Diabetes, Risk Factor for Hypertension, Risk Factor for Depression, Highest Risk: Risk Factor for Obesity, Risk Factor for Sedentary Lifestyle - For Smoking Smoking Risk Guidelines: Smoking Low Risk: None or quit greater than 6 months ago. Smoking Moderate Risk: Smoker or quit 6 months or less ago. Smoking High Risk: Smoker - For Dyslipidemia Dyslipidemia Risk Guidelines: Low Risk: Moderate Risk: High Risk: 15-25% fat 25.1-29% fat >/= 30% fat. <7% sat fat 7-9% sat fat >9% sat fat. <150 mg chol 150-299 mg chol >/= 300 mg chol. LDL <100 LDL 100-129 LDL >/= 130. Chol/HDL ratio <5.0 Chol/HDL ratio 5.0-6.0 Chol/HDL ratio >6.0. Triglycerides <100 Triglycerides 100-149 Triglycerides >/= 150 - For Diabetes Mellitus Diabetes Risk Guidelines: Diabetes Low Risk: HgA1c <6.5% and/or FBG <120. Diabetes Moderate Risk: HgA1c 6.6-7.9% and/or FBG 120-180. Diabetes High Risk: HgA1c >/= 8% and/or FBG >180 - For Obesity/Overweight Obesity/Overweight Risk Guidelines: Obesity Low Risk: BMI <25.0. Obesity Moderate Risk: BMI 25-29.9. Obesity High Risk: BMI >/= 30.0 - For Hypertension Hypertension Risk Guidelines: Hypertension Low Risk: Systolic <120 and Diastolic <80. Hypertension Moderate Risk: Systolic 120-139 and Diastolic 80-89. Hypertension High Risk: Systolic >/= 140 and Diastolic >/= 90 - For Sedentary Lifestyle Sedentary Lifestyle Risk Guidelines: Sedentary Lifestyle Low Risk: >/= 1,500 kcal/week. Sedentary Lifestyle Moderate Risk: 700-1,499 kcal/week. Sedentary Lifestyle High Risk: < 700 kcal/week - For Depression Depression Risk Guidelines: Depression Low Risk: Not clinically depressed. Depression Moderate Risk: Mildly depressed. Depression High Risk: Clinically depressed Motivation - Motivation to Participate On a scale of 1 to 10, how prepared are you to commit to attending program?: 10 What do you see as barriers to successfully being able to complete the program?: IF GET A JOB What do you see as the benefits of succesfully completing the program? In other words, what do you hope to get out of participating in the program?: HOPEFULLY INCREASE QUALITY OF LIFE, IMPROVE BREATHING, AND BEING MORE ACTIV Are there issues you are dealing with that will interfere with completing the program?: NONE Do you have a spouse or signficant other, family or friends who will help support you to complete the program?: YES. Diagnostic Data Review - Pulmonary Function Test FEV1:: 2.04 - 52% FVC:: 3.12 - 62% FEV1/FVC%:: 65 - 84% Gold Classification: GOLD class II(mod. COPD)with FEV1/FVC <70%, 50%</= FEV1< 50% predicted - mODERALTEY SEVERE AIRWAYS OBSTRUCTION, IRREVERSIBLE MIXED VENTILATORY IMPAIRMENT.
[2018-11-29 12:25] VITALS: BP 142/64; PULSE 75; RESP 18; TEMP 37.1; O2SAT 95; BMI 58.1
[2018-11-29 13:08] VITALS: BMI 58.1
== END | disposition home or self-care (01) ==
LOC: PR 11:46
PROVIDERS: Family Provider Family Medicine; PCP Family Medicine; Referring Provider Family Medicine; Visit Provider Family Medicine
DX: I27.21 Secondary pulmonary arterial hypertension (principal); G47.33 Obstructive sleep apnea (adult) (pediatric); E11.9 Type 2 diabetes mellitus without complications; E78.00 Pure hypercholesterolemia, unspecified; I10 Essential (primary) hypertension

== ENCOUNTER 2018-12-09 08:00 | Outpatient (RCR) | payer OTHER, SELFPAY ==
[2018-11-29 13:08] VITALS: BMI 58.1
== END 2018-12-10 23:59 ==
LOC: PR 08:00
PROVIDERS: Family Provider Family Medicine; PCP Family Medicine; Referring Provider Family Medicine; Visit Provider Family Medicine
DX: J44.9 Chronic obstructive pulmonary disease, unspecified (principal)
CPT/HCPCS: 97150; G0424

== ENCOUNTER → 2018-12-29 09:03 | Outpatient (CLI) | payer OTHER, SELFPAY ==
[2018-12-19 08:01] VITALS: BMI 55.2
[2018-12-29 10:28] LABS: Absolute Lymphocyte Count 0.76 X10^3/uL (0.83-4.51); Absolute Neutrophil Count 3.5 X10^3/uL (2.0-7.7); Basophil# 0.05 X10^3/uL; Eosinophil# 0.26 X10^3/uL; Eosinophils% 5.1 % (0-5); Hematocrit 40.3 % (40-54); Hemoglobin 13.2 g/dL (13.0-16.5); Lymphocyte # 0.76 X10^3/ul (4.0); Mean Corp Hgb Conc 32.8 g/dL (32-36); Mean Corpuscular Hgb 27.2 pg (27.0-32.0); Mean Corpuscular Volume 83.1 fL (80-94); Mean Platelet Vol. 10.5 fl (6.2-12.0); Monocyte# 0.45 X10^3/uL; Monocyte% 8.9 % (0-10); NRBC Flagged by Analyzer 0 % (0-5); Neutrophil # 3.48 X10^3/uL (2.7-7.7); Platelet Count 156 K/mm3 (150-450); RBC Distribution Width CV 17.4 % (11.6-14.6); Red Blood Count 4.85 M/mm3 (4.6-6.2); White Blood Count 5.1 K/mm3 (4.4-11.0)
[2018-12-29 11:01] LABS: ALB/GLOB Ratio 1.1 RATIO (0.9-2.4); AST(SGOT) 21 U/L (15-37); Alanine Aminotransfer ALT/SGPT 27 U/L (16-61); Albumin, Serum 3.9 g/dL (3.2-5.0); Alkaline Phosphatase 60 U/L (45-117); Anion Gap 9 (5-15); BUN 17 mg/dL (7-18); BUN/Creat Ratio 19.8 RATIO (10-20); Calcium,Total 8.5 mg/dL (8.5-10.1); Chloride 99 mmol/L (98-107); Creatinine, Serum 0.86 mg/dL (0.70-1.30); EST Glomerular Filtration Rate 99 mL/min (>60); Est Glom Filt Rate - Afr Amer 120 mL/min (>60); Globulin 3.7 g/dL (2.2-4.2); Glucose 286 mg/dL (74-106); Potassium 3.9 mmol/L (3.5-5.1); Protein, Total 7.6 g/dL (6.4-8.2); Sodium Level 136 mmol/L (136-145)
== END ==
PROVIDERS: Family Provider Family Medicine; PCP Family Medicine; Referring Provider Family Medicine; Visit Provider Family Medicine
DX: E11.65 Type 2 diabetes mellitus with hyperglycemia (principal)
CPT/HCPCS: 36415; 80053; 85025

== ENCOUNTER 2019-01-09 08:00 | Outpatient (RCR) | payer OTHER, SELFPAY ==
[2018-11-29 13:08] VITALS: BMI 58.1
--- NOTE | 2018-12-28 10:44 | PCM.PR.TP ---
General Information - General Information Admitting Diagnosis: COPD Gold Classification:: GOLD 2: Moderate - Education/Goals Barriers to Learning: None Exercise - 30-Day Assessment - Physician Prescribed Exercise Modalities: NuStep, SciFit Target heart rate: 109-142 Max HR 102 METs - Progression: 0.5-1.0 MET, RPE 11-14 WEEK: 2.4 - Home Exercise Frequency:: 3 Tobacco - 30-Day Assessment - Program Goals Tobacco Program Goals: Complete smoking cessation. Attend education classes. Improve Knowledge Test score - Stage of Change Stages of Change:: Action - Learning Barriers Learning Barriers: Participates in education - Family Support Do you have family support?: Yes - Tobacco Use Do you use smokeless tobacco?: No - Intervention Smoking Cessation Referral:: No Individual Education/Counseling:: No Education Schedule Given:: Yes - Education Gave Education Materials For:: Tobacco Triggers, Pulmonary Disease, Risk Factors, Breathing Techniques, Medical Compliance, Pulmonary A&P, Exacerbation Signs & Symptoms, Stress & Relaxation Nutrition/Wt Mgmt - 30-Day - Weight Management Weight:: 180.53 kg Patient Health Questionnaire 30-Day Re-eval Assessment 1. Little interest or pleasure in doing things: More than half the days 2. Feeling down, depressed, or hopeless: Not at all 3. Trouble falling or staying asleep, or sleeping too much: Several days 4. Feeling tired or having little energy: Not at all 5. Poor appetite or overeating: More than half the days 6. Feeling bad about yourself -- or that you are a failure or have let yourself or your family down: Not at all 7. Trouble concentrating on things, such as reading the newspaper or watching television: Not at all 8. Moving or speaking so slowly that other people could have noticed. Or the opposite - being so fidgety or restless that you have been moving around a lot more than usual: Not at all 9. Thoughts that you would be better off , or of hurting yourself in some way: Not at all How difficult have these problems made it for you to do your work, take care of things at home, or get along with other people?: Not difficult at all Total Score: 5 Self-Efficacy 30-Day Re-eval Assessment We would like to know how confident you are in doing certain activities. Please select your confidence level for:: Select your confidence level for the following using the scale 1-10 where 1 is not at all confident and 10 is totally confident. Your score is the average of all 6 responses. Fatigue: How confident are you that you can keep the fatigue caused by your disease from interfering with the things you want to do? Select Number: 3 Physical Discomfort or Pain: How confident are you that you can keep the physical discomfort or pain of your disease from interfering with the things you want to do? Select Number: 6 Emotional Distress: How confident are you that you can keep the emotional distress caused by your disease from interfering with the things you want to do? Select Number: 5 Other Symptoms or Health Problems: How confident are you that you can keep other symptoms or health problems from interfering with the things you want to do? Select Number: 3 Different Tasks and Activities: How confident are you that you can do the different tasks and activities needed to manage your health condition so as to reduce your need to see a doctor? Select Number: 6 Medication: How confident are you that you can do things other than just taking medication to reduce how much your illness affects your everyday life? Select Number: 6 Total Score:: 4
== END 2019-01-09 23:59 ==
LOC: PR 08:00
PROVIDERS: Family Provider Family Medicine; PCP Family Medicine; Referring Provider Family Medicine; Visit Provider Family Medicine
DX: J44.9 Chronic obstructive pulmonary disease, unspecified (principal)
CPT/HCPCS: 97150; G0424

== ENCOUNTER → 2019-01-31 15:48 | Outpatient (CLI) | payer OTHER, SELFPAY ==
[2018-12-19 08:01] VITALS: BMI 55.2
[2019-01-31 18:04] LABS: Absolute Lymphocyte Count 0.95 X10^3/uL (0.83-4.51); Basophil# 0.06 X10^3/uL; Eosinophil# 0.28 X10^3/uL; Eosinophils% 4.7 % (0-5); Hematocrit 44.2 % (40-54); Hemoglobin 14.5 g/dL (13.0-16.5); Lymphocyte # 0.95 X10^3/ul (4.0); Lymphocyte % 16.1 % (19-41); Mean Corp Hgb Conc 32.8 g/dL (32-36); Mean Corpuscular Hgb 27.6 pg (27.0-32.0); Mean Platelet Vol. 10.5 fl (6.2-12.0); Monocyte# 0.58 X10^3/uL; Monocyte% 9.8 % (0-10); NRBC Flagged by Analyzer 0 % (0-5); Neutrophil # 3.99 X10^3/uL (2.7-7.7); Neutrophil % 67.7 % (47-70); Platelet Count 182 K/mm3 (150-450); RBC Distribution Width CV 16.6 % (11.6-14.6); RBC Distribution Width SD 50.2 fl (35.1-43.9); Red Blood Count 5.26 M/mm3 (4.6-6.2); White Blood Count 5.9 K/mm3 (4.4-11.0)
[2019-01-31 18:43] LABS: ALB/GLOB Ratio 1.1 RATIO (0.9-2.4); AST(SGOT) 28 U/L (15-37); Alanine Aminotransfer ALT/SGPT 40 U/L (16-61); Alkaline Phosphatase 61 U/L (45-117); Anion Gap 9 (5-15); BUN 14 mg/dL (7-18); BUN/Creat Ratio 17.7 RATIO (10-20); Calcium,Total 9.1 mg/dL (8.5-10.1); Chloride 96 mmol/L (98-107); Creatinine, Serum 0.79 mg/dL (0.70-1.30); EST Glomerular Filtration Rate 109 mL/min (>60); Est Glom Filt Rate - Afr Amer 132 mL/min (>60); Globulin 3.8 g/dL (2.2-4.2); Glucose 338 mg/dL (74-106); Protein, Total 7.8 g/dL (6.4-8.2); Sodium Level 134 mmol/L (136-145)
== END ==
PROVIDERS: Family Provider Family Medicine; PCP Family Medicine; Referring Provider Family Medicine; Visit Provider Family Medicine
DX: E11.65 Type 2 diabetes mellitus with hyperglycemia (principal)
CPT/HCPCS: 36415; 80053; 85025

== ENCOUNTER 2019-02-08 08:00 | Outpatient (RCR) | payer OTHER, SELFPAY ==
[2018-12-19 08:01] VITALS: BMI 55.2
--- NOTE | 2019-01-26 08:39 | PR.ITP_ITS ---
Exercise - 60-Day Assessment - Physician Prescribed Exercise Modalities: Treadmill, NuStep, SciFit Frequency (days/week): 3 Duration (Minutes):: 30-45 Intensity: 60-80% age predicted maximum heart rate reserve Aerobic Exercise [30-60 min 3-7x/week]:: Progressing Target heart rate: 109-142 w/max HR of 103 Mayte-14 METs - Progression: 0.5-1.0 MET, RPE 11-14 WEEK: 3 - limited by his knees, chronic back pain - Home Exercise Home Exercise:: No Time (minutes):: 0 - has increased his ADLs and activity level @ home Disease Management - 60-Day - Medications Medication reassessment: Yes Pt demonstrates correct technique timing for MDI, Yes Pt demonstrates correct technique timing for DPI, Yes Pt demonstrates correct technique timing for NEB, Yes Pt demonstrates correct technique timing for spacer - Bronchial Hygiene Bronchial Hygiene Plan: Yes Pt demonstrates correctly for effective cough, Yes Pt demo correct for device, Yes Pt demo correct for improved hydration, Yes Pt demo correct for hand hygiene, Yes Pt demo correct for verbalize when to call MD Psychosocial - 60-Day - Assessment Depression reassess: Management of stress: Met, Management of depression: Met, Practicing interventions: Met Tobacco - 60-Day Assessment - Program Goals Tobacco Program Goals: Complete smoking cessation. Attend education classes. Improve Knowledge Test score - Stage of Change Stages of Change:: Action - Learning Barriers Learning Barriers: Participates in education, Change in behavior - Family Support Do you have family support?: Yes - Tobacco Use Tobacco Use: Non-smoker Do you use smokeless tobacco?: No - Intervention Smoking Cessation Referral:: No Individual Education/Counseling:: No Education Schedule Given:: Yes - Education Gave Education Materials For:: Pulmonary Disease, Risk Factors, Breathing Techniques, Medical Compliance, Pulmonary A&P, Exacerbation Signs & Symptoms, Stress & Relaxation Nutrition/Wt Mgmt - 60-Day - Weight Management Weight Assessment:: Wt loss 1-2 lbs per week Weight:: 396 lb 8 oz - down 3# Weight Goals Progress:: Progressing Patient Health Questionnaire 60-Day Re-eval Assessment 1. Little interest or pleasure in doing things: Several days 2. Feeling down, depressed, or hopeless: Not at all 3. Trouble falling or staying asleep, or sleeping too much: Not at all 4. Feeling tired or having little energy: Not at all 5. Poor appetite or overeating: Several days 6. Feeling bad about yourself -- or that you are a failure or have let yourself or your family down: Not at all 7. Trouble concentrating on things, such as reading the newspaper or watching television: Not at all 8. Moving or speaking so slowly that other people could have noticed. Or the opposite - being so fidgety or restless that you have been moving around a lot more than usual: Not at all 9. Thoughts that you would be better off , or of hurting yourself in some way: Not at all How difficult have these problems made it for you to do your work, take care of things at home, or get along with other people?: Somewhat difficult Total Score: 2 Self-Efficacy 60-Day Re-eval Assessment We would like to know how confident you are in doing certain activities. Please select your confidence level for:: Select your confidence level for the followin g using the scale 1-10 where 1 is not at all confident and 10 is totally confident. Your score is the average of all 6 responses. Fatigue: How confident are you that you can keep the fatigue caused by your disease from interfering with the things you want to do? Select Number: 4 Physical Discomfort or Pain: How confident are you that you can keep the physical discomfort or pain of your disease from interfering with the things you want to do? Select Number: 7 Emotional Distress: How confident are you that you can keep the emotional distress caused by your disease from interfering with the things you want to do? Select Number: 6 Other Symptoms or Health Problems: How confident are you that you can keep other symptoms or health problems from interfering with the things you want to do? Select Number: 5 Different Tasks and Activities: How confident are you that you can do the different tasks and activities needed to manage your health condition so as to reduce your need to see a doctor? Select Number: 7 Medication: How confident are you that you can do things other than just taking medication to reduce how much your illness affects your everyday life? Select Number: 8 Total Score:: 6
== END 2019-02-09 23:59 ==
LOC: PR 08:00
PROVIDERS: Family Provider Family Medicine; PCP Family Medicine; Referring Provider Family Medicine; Visit Provider Family Medicine
DX: J44.9 Chronic obstructive pulmonary disease, unspecified (principal)
CPT/HCPCS: 97150; G0424

== ENCOUNTER 2019-02-20 08:00 | Outpatient (RCR) | payer OTHER, SELFPAY ==
[2018-12-19 08:01] VITALS: BMI 55.2
[2019-02-15 13:03] LABS: Mucous, Urine 0 SEEN /hpf (<or=2+)
[2019-02-15 13:08] LABS: Color, Urine Straw (Yellow); Glucose, Dipstick 250 mg/dl (Normal); Ketone-Dipstick Negative (Negative); Leukocyte Esterase-Dipstick Negative /ul (Negative); Nitrite-Dipstick Negative (Negative); Occult Blood-Urine 10 /ul (Negative); Protein-Dipstick Negative (Negative); Urine Bilirubin Dipstick Negative (Negative); Urine Clarity Clear (Clear); Urine Urobilinogen Normal (Normal)
[2019-02-15 13:16] LABS: Bacteria RARE /hpf (None Seen); Red Blood Cells-Urine 0-5 SEEN /hpf (0-5); Squamous Epithelial Cells - UA 0-5 SEEN /hpf (0-5); White Blood Cells 0-5 SEEN /hpf (0-5)
== END 2019-03-11 23:59 ==
LOC: PR 08:00
PROVIDERS: Family Provider Family Medicine; PCP Family Medicine; Referring Provider Family Medicine; Visit Provider Family Medicine
DX: J44.9 Chronic obstructive pulmonary disease, unspecified (principal)
CPT/HCPCS: 81001; 87086; 97150; G0424

== ENCOUNTER → 2019-03-03 14:54 | Outpatient (CLI) | payer OTHER, SELFPAY ==
[2018-12-19 08:01] VITALS: BMI 55.2
--- NOTE | 2019-03-03 14:59 | ECHOCS_ITS ---
Reason For Study: PHTN Procedure This was a 2D Doppler, Color Flow transthoracic echocardiogram. The study was technically difficult. The study was technically limited. Contrast injection was performed. Exam performed in department. Left Ventricle Normal LV size. Mild concentric left ventricular hypertrophy. The estimated ejection fraction is 65 %. No regional wall motion abnormalities noted. Right Ventricle Normal RV size. Normal systolic function. Atria The left atrium is not well visualized. The right atrium is not well visualized. Mitral Valve Normal mitral valve. Tricuspid Valve The tricuspid valve is not well visualized. Mild (1+) tricuspid valve insufficiency. Pulmonary artery systolic pressure is 49 mmHg. Mild pulmonary hypertension. Aortic Valve The aortic valve is not well visualized. Great Vessels Normal aortic root. Pericardium/Pleural No pericardial effusion. Medication 22 gauge I.V. with prn adaptor inserted into left arm. Diluted definity 5ml given slow IV push to enhance endocardial definition. MMode/2D Measurements & Calculations LVIDd: 5.5 cm IVSd: 1.4 cm LAV(MOD-sp2): 88.7 ml LVIDs: 3.2 cm LVPWd: 1.3 cm FS: 42.2 % Time Measurements MV dec time: 0.21 sec Doppler Measurements & Calculations MV E max sukhdeep: 105.5 cm/sec MV V2 max: 132.9 cm/sec Ao V2 max: 132.9 cm/sec MV A max sukhdeep: 35.0 cm/sec MV max P.1 mmHg Ao max P.1 mmHg MV E/A: 3.0 MV V2 mean: 61.3 cm/sec MV mean P.9 mmHg MV V2 VTI: 34.1 cm LV V1 max: 106.4 cm/sec PA V2 max: 111.3 cm/sec TR max sukhdeep: 333.8 cm/sec LV V1 max P.5 mmHg TR max P.6 mmHg Interpretation Summary Normal LV size. Mild concentric left ventricular hypertrophy. Pulmonary artery systolic pressure is 49 mmHg. Mild pulmonary hypertension. Contrast injection was performed. The study was technically difficult. Ordering Physician: Reginaldo Kumar Referring Physician: Reginaldo Kumar Performed By: Kenny Marcano RCS
== END ==
PROVIDERS: Family Provider Family Medicine; PCP Family Medicine; Referring Provider Internal Medicine Critical Care Medicine; Visit Provider Internal Medicine Critical Care Medicine
DX: I27.21 Secondary pulmonary arterial hypertension (principal)
CPT/HCPCS: 93306; Q9957; A4216; C8929

== ENCOUNTER 2019-03-14 20:50 | Emergency (ER) | payer OTHER, SELFPAY ==
[2018-12-19 08:01] VITALS: BMI 55.2
[2019-03-14 20:50] VITALS: BP 161/74; PULSE 69; RESP 16; TEMP 37.2; O2SAT 95; BMI 56.0
[2019-03-14 21:51] VITALS: BP 139/66; PULSE 59; RESP 16; TEMP 36.9; O2SAT 96
[2019-03-14 22:19] LABS: Bacteria 0 SEEN /hpf (None Seen); Mucous, Urine 0 SEEN /hpf (<or=2+)
[2019-03-14 22:20] VITALS: BP 138/68; PULSE 68; RESP 16; TEMP 36.9; O2SAT 95
[2019-03-14 22:28] LABS: Color, Urine Red (Yellow); Glucose, Dipstick Normal (Normal); Ketone-Dipstick 5 mg/dl (Negative); Leukocyte Esterase-Dipstick 100 /ul (Negative); Nitrite-Dipstick Positive (Negative); Occult Blood-Urine 250 /ul (Negative); Protein-Dipstick 100 mg/dl (Negative); Specific Gravity, Urine 1.025 (1.002-1.030); Urine Bilirubin Dipstick Negative (Negative); Urine Clarity Cloudy (Clear); Urine Urobilinogen 1 mg/dl (Normal)
[2019-03-14 22:32] LABS: International Normalized Ratio 3.1; Prothrombin Time (Protime)PT. 31.9 SECONDS (11.7-14.9)
[2019-03-14 22:42] LABS: Red Blood Cells-Urine > 100 SEEN /hpf (0-5); White Blood Cells 0-5 SEEN /hpf (0-5)
[2019-03-14 22:43] LABS: Squamous Epithelial Cells - UA 0-5 SEEN /hpf (0-5)
--- NOTE | 2019-03-14 23:42 | ED.VIS.GEN ---
History of Present Illness Chief Complaint: Complaint Narrative: Patient presenting for evaluation due to hematuria. Patient reports that he has an underlying history of A. fib and is on Coumadin for anticoagulation. Last time that was checked was about a month ago. Patient states that he intermittently will have very small amounts of pink urine, his primary care told him not to worry about it. Today however he has had increasing issues with bloody urine that is darker than usual. States that he feels as if he potentially is passing some clots, but denies actually seeing them in the toilet. Denies any feelings of urinary retention or dysuria. No suprapubic pain or flank pain no fevers associated with this. Patient is a past smoker. Past Medical History - Allergies and Home Meds Allergies/Adverse Reactions: Allergies adhesive tape Allergy (Verified 12/19/18 14:05) Rash codeine Allergy (Verified 12/19/18 14:05) rash levofloxacin [From Levaquin] Allergy (Verified 12/19/18 14:05) hives and swelling oxycodone Allergy (Verified 12/19/18 14:05) hives Primary Care Physician: Brandon Lucio MD [STAFF PHYSICIAN] - 3-5 Days Past Medical History: - - Atrial fibrillation Surgical History: noncontributory, - Smoking Status: Former smoker - Family History Paternal Family History: Reports: No pertinent history, - - The patient's father is 67 years of age, living, with a history of colon cancer. The patient's mother 67 years of age with a history of breast cancer. Maternal Family History: Reports: No pertinent history Review of Systems All systems negative except as indicated General: Denies: Chills, Fever, Sweats Eyes: Denies: Visual changes - bilaterally, Diplopia ENT: Denies: Rhinorrhea, Sore throat Cardiovascular: Denies: Chest pain, Palpitations Respiratory: Denies: Dyspnea, Cough, Dyspnea on exertion Gastrointestinal: Denies: Abdominal pain, Nausea, Vomiting, Diarrhea, Melena, Hematochezia Genitourinary: Reports: Hematuria Musculoskeletal: Denies: Back pain, Extremity Pain Skin: Denies: Rash, Wounds Neurological: Denies: Headache, Weakness, Numbness Psych: Denies: Depression Endocrine: Denies: Polyuria Hematologic: Reports: Easy bleeding Allergy: Denies: Swelling of the mouth Physical Exam Vital Signs/Narrative: Vital Signs Temp Pulse Resp BP Pulse Ox 03/14/19 22:20 98.4 F 68 16 138/68 H 95 03/14/19 21:51 98.5 F 59 L 16 139/66 H 96 03/14/19 20:50 98.9 F 69 16 161/74 H 95 Inital Vital Signs reviewed: Yes General: Well nourished, Well developed, Obese, No Acute Distress Head: Normocephalic, Atraumatic Eyes: Perrl, EOMI ENT: Moist mucous membranes, No rhinorrhea Neck: Supple, Nontender Cardiovascular: Regular rate, No murmurs, Irregular Respiratory: No distress, CTA bilaterally, Chest nontender Abdomen: Soft, Nontender, Nondistended, Normal bowel sounds Back: Nontender, Normal Inspection Extremities: Nontender, No edema Skin: Normal color, No rash Neurological: Alert, Oriented x3, Cranial nerves II-XII grossly intact, Normal Strength, Normal Sensation Psychological: Normal affect, Normal Mood Diagnostic/Tx/Re-eval - Medical Decision Making Patient presented secondary to hematuria. INR was found to be 3. Patient's urine was grossly loaded with red blood cells, no obvious infection. This was sent for culture. As the patient is not urinating clots at this time, has a therapeutic INR, and is not having any issues with retention I do not believe that further intervention is necessary. Patient was recommended signs and symptoms which to return. He was given urology to follow-up with as he is a prior smoker and there is the possibility of bladder cancer. Patient was discharged. ED Disposition - Plan for ED Patient: Disposition: Home or Assisted Living Diagnosis: Hematuria Instructions: Hematuria Referrals: Brandon Lucio MD [STAFF PHYSICIAN] - 3-5 Days
[2019-03-15 00:03] VITALS: BP 133/63; PULSE 70; RESP 16; O2SAT 96
== END 2019-03-15 00:04 | disposition home or self-care (01) ==
PROVIDERS: Emergency Provider Emergency Medicine; Family Provider Family Medicine; PCP Family Medicine
DX: R31.9 Hematuria, unspecified (principal); I48.91 Unspecified atrial fibrillation; Z79.01 Long term (current) use of anticoagulants; Z79.899 Other long term (current) drug therapy; Z87.891 Personal history of nicotine dependence
CPT/HCPCS: 36415; 81001; 85610; 87086; 99282

== ENCOUNTER → 2019-03-21 09:54 | Outpatient (CLI) | payer OTHER, SELFPAY ==
[2018-12-19 08:01] VITALS: BMI 55.2
[2019-03-14 20:50] VITALS: BMI 56.0
--- NOTE | 2019-03-21 17:10 | PFTCOMP ---
COMPLETE PULMONARY FUNCTION TEST INTERPRETATION Brief HPI: Patient is a 53 year old male, currently under the care of myself, who presents to [facility] for complete pulmonary function tests secondary to diagnosis of COPD. Respiratory therapist reports good effort and reproducible results. Interpretation: Forced expiration spirometry shows a moderately severe large airways obstructive ventilatory defect with an FEV1 of 63% predicted. There is a significant bronchodilator response in FEV1 by strict ATS criteria. Spirograms are of good quality and plateau slowly, indicating slowly emptying areas of the lungs. The respiratory flow volume loop shows decreased expiratory flow rates at all lung volumes consistent with airway obstruction. Lung volumes by body plethysmography show a decreased total lung capacity at 3.13 L, 43% predicted. Lung volumes are suspect and nonphysiologic. Interpretation with caution. Previous lung studies from November 2018 showed mild restriction Diffusion capacity by carbon monoxide is decreased at 70% predicted. The airway resistance is elevated. Compared to previous pulmonary function tests from 11/22/2018, there is been a significant improvement by 18% and 21% in FVC and DLCO respectively. Impression: Moderate mixed ventilatory defect with a symmetric reduction diffusion capacity and some improvements compared to previous.
== END ==
PROVIDERS: Family Provider Family Medicine; PCP Family Medicine; Referring Provider Internal Medicine Critical Care Medicine; Visit Provider Internal Medicine Critical Care Medicine
DX: I27.21 Secondary pulmonary arterial hypertension (principal); R06.02 Shortness of breath
CPT/HCPCS: 94060; 94726; 94729

== ENCOUNTER → 2019-03-28 10:37 | Outpatient (CLI) | payer OTHER, SELFPAY ==
[2018-12-19 08:01] VITALS: BMI 55.2
[2019-03-14 20:50] VITALS: BMI 56.0
[2019-03-28 11:00] VITALS: PULSE 67; PULSE 72; PULSE 79; PULSE 83; PULSE 89; PULSE 91; PULSE 92; PULSE 93; O2SAT 92; O2SAT 93; O2SAT 94; O2SAT 95; O2SAT 96
--- NOTE | 2019-03-29 09:33 | PCM.PSN.6M ---
PSN 6 Minute Walk Test - 6 Minute Walk Test 6 Minute Walk Test: 6 Minute Walk Test PSN:6-Minute Walk Test Start: 03/28/19 11:21 Freq: Status: Active Protocol: [id number] Document 03/28/19 11:00 EW (Rec: 03/28/19 11:24 EW [id number]) 6 Minute Walk Test Date Performed 03/28/19 Time Performed 11:00 Height 6 ft Weight: 394 lb Weight in Pounds 394.[address]: Reginaldo Kumar Assistive device used: None Pre-test Oxygen Delivery Method Room Air Pulse Ox (%) 95 Pulse Rate (60-100 beats/min) 72 Dyspnea Mayte Scale (0-10) 0 Exertion Mayte Scale (6-20) 8 1st minute Oxygen Delivery Method Room Air Pulse Ox (%) 94 Pulse Rate (60-100 beats/min) 79 2nd minute Oxygen Delivery Method Room Air Pulse Ox (%) 92 Pulse Rate (60-100 beats/min) 93 3rd minute Oxygen Delivery Method Room Air Pulse Ox (%) 94 Pulse Rate (60-100 beats/min) 92 4th minute Oxygen Delivery Method Room Air Pulse Ox (%) 93 Pulse Rate (60-100 beats/min) 83 5th minute Oxygen Delivery Method Room Air Pulse Ox (%) 92 Pulse Rate (60-100 beats/min) 91 6th minute Oxygen Delivery Method Room Air Pulse Ox (%) 92 Pulse Rate (60-100 beats/min) 89 Post-test Oxygen Delivery Method Room Air Pulse Ox (%) 96 Pulse Rate (60-100 beats/min) 67 Dyspnea Mayte Scale (0-10) 1 Exertion Mayte Scale (6-20) 11 Full Laps Walked 17 Partial Lap, Number of Tiles Walked 32 Total Distance Walked (ft) 1035 - Interpretation Interpretation: The patient ambulated 1035 feet over the course of 6 minutes beginning on room air without assistive devices or breaks. Pretesting oxygen saturation was noted to be 95% on room air. With ambulation, the jamie oxygen saturation was 92%. There was no significant exertional oxygen desaturation. - Recommendations Recommendations: There is no indication for the use of supplemental oxygen at this time.
== END ==
PROVIDERS: Family Provider Family Medicine; PCP Family Medicine; Referring Provider Internal Medicine Critical Care Medicine; Visit Provider Internal Medicine Critical Care Medicine
DX: R06.02 Shortness of breath (principal); I27.21 Secondary pulmonary arterial hypertension
CPT/HCPCS: 94618

== ENCOUNTER → 2019-03-28 11:20 | Outpatient (CLI) | payer OTHER, SELFPAY ==
[2019-03-14 20:50] VITALS: BMI 56.0
== END ==
PROVIDERS: Family Provider Family Medicine; PCP Family Medicine; Referring Provider Nurse Practitioner Adult Health; Visit Provider Nurse Practitioner Adult Health
DX: R31.0 Gross hematuria (principal); Z80.42 Family history of malignant neoplasm of prostate
CPT/HCPCS: 36415; 84153

== ENCOUNTER → 2019-05-17 15:26 | Outpatient (CLI) | payer OTHER, SELFPAY ==
[2019-04-04 08:39] VITALS: BMI 53.5
[2019-05-17 17:59] LABS: Prothrombin Time (Protime)PT. 45.5 SECONDS (11.7-14.9)
[2019-05-17 18:10] LABS: International Normalized Ratio 4.8
== END ==
PROVIDERS: PCP Family Medicine; Referring Provider Family Medicine; Visit Provider Family Medicine
DX: I48.91 Unspecified atrial fibrillation (principal)
CPT/HCPCS: 36415; 85610

== ENCOUNTER → 2019-05-26 13:47 | Outpatient (CLI) | payer BC, SELFPAY ==
[2019-04-04 08:39] VITALS: BMI 53.5
[2019-05-26 15:38] LABS: Hematocrit 37.2 % (40-54); Hemoglobin 11.4 g/dL (13.0-16.5); Mean Corp Hgb Conc 30.6 g/dL (32-36); Mean Corpuscular Hgb 26.5 pg (27.0-32.0); Mean Corpuscular Volume 86.3 fL (80-94); Mean Platelet Vol. 9.9 fl (6.2-12.0); Platelet Count 220 K/mm3 (150-450); RBC Distribution Width CV 17.2 % (11.6-14.6); RBC Distribution Width SD 52.5 fl (35.1-43.9); Red Blood Count 4.31 M/mm3 (4.6-6.2); White Blood Count 9.7 K/mm3 (4.4-11.0)
[2019-05-26 16:18] LABS: AST(SGOT) 14 U/L (15-37); Alanine Aminotransfer ALT/SGPT 23 U/L (16-61); Albumin, Serum 3.7 g/dL (3.2-5.0); Alkaline Phosphatase 71 U/L (45-117); Anion Gap 7 (5-15); BUN 12 mg/dL (7-18); BUN/Creat Ratio 13.8 RATIO (10-20); Calcium,Total 8.9 mg/dL (8.5-10.1); Chloride 101 mmol/L (98-107); Creatinine, Serum 0.87 mg/dL (0.70-1.30); EST Glomerular Filtration Rate 98 mL/min (>60); Est Glom Filt Rate - Afr Amer 118 mL/min (>60); Globulin 3.8 g/dL (2.2-4.2); Glucose 125 mg/dL (74-106); Potassium 3.9 mmol/L (3.5-5.1); Protein, Total 7.5 g/dL (6.4-8.2); Sodium Level 139 mmol/L (136-145); Thyroid Stim Hormone (TSH) 1.83 uIU/mL (0.358-3.74)
== END ==
LOC: MFPLAB 13:49
PROVIDERS: PCP Family Medicine; Referring Provider Family Medicine; Visit Provider Family Medicine
DX: R31.9 Hematuria, unspecified (principal); E11.65 Type 2 diabetes mellitus with hyperglycemia
CPT/HCPCS: 36415; 80053; 84443; 85027

== ENCOUNTER 2019-06-03 22:13 | Inpatient (IN) | payer BC, SELFPAY ==
[2019-04-04 08:39] VITALS: BMI 53.5
[2019-06-03 22:13] VITALS: BP 170/87; O2SAT 93
[2019-06-03 22:14] VITALS: PULSE 100; RESP 22; TEMP 38.2; O2SAT 85; BMI 52.0
[2019-06-03 22:42] LABS: Absolute Lymphocyte Count 0.81 X10^3/uL (0.83-4.51); Absolute Neutrophil Count 9.6 X10^3/uL (2.0-7.7); Basophil# 0.07 X10^3/uL; Basophil% 0.6 % (0-1); Eosinophil# 0.34 X10^3/uL; Eosinophils% 2.9 % (0-5); Hematocrit 37.4 % (40-54); Hemoglobin 11.7 g/dL (13.0-16.5); Lymphocyte # 0.81 X10^3/ul (4.0); Mean Corp Hgb Conc 31.3 g/dL (32-36); Mean Corpuscular Hgb 27.3 pg (27.0-32.0); Mean Corpuscular Volume 87.4 fL (80-94); Mean Platelet Vol. 9.2 fl (6.2-12.0); Monocyte# 0.67 X10^3/uL; Monocyte% 5.8 % (0-10); NRBC Flagged by Analyzer 0 % (0-5); Neutrophil # 9.63 X10^3/uL (2.7-7.7); Neutrophil % 83.2 % (47-70); Platelet Count 213 K/mm3 (150-450); RBC Distribution Width CV 17.9 % (11.6-14.6); RBC Distribution Width SD 56.1 fl (35.1-43.9); Red Blood Count 4.28 M/mm3 (4.6-6.2); White Blood Count 11.6 K/mm3 (4.4-11.0)
[2019-06-03 22:50] VITALS: RESP 24; O2SAT 98
[2019-06-03 22:53] VITALS: BP 138/80; PULSE 95; RESP 20; O2SAT 97
[2019-06-03 23:01] LABS: ALB/GLOB Ratio 0.8 RATIO (0.9-2.4); AST(SGOT) 14 U/L (15-37); Alanine Aminotransfer ALT/SGPT 24 U/L (16-61); Albumin, Serum 3.5 g/dL (3.2-5.0); Alkaline Phosphatase 69 U/L (45-117); Anion Gap 3 (5-15); BUN 13 mg/dL (7-18); Calcium,Total 8.6 mg/dL (8.5-10.1); Chloride 105 mmol/L (98-107); Creatinine, Serum 0.93 mg/dL (0.70-1.30); EST Glomerular Filtration Rate 90 mL/min (>60); Est Glom Filt Rate - Afr Amer 109 mL/min (>60); Estimated Creatinine Clearance 101.98 ml/min; Globulin 4.3 g/dL (2.2-4.2); Glucose 229 mg/dL (74-106); Protein, Total 7.8 g/dL (6.4-8.2); Sodium Level 139 mmol/L (136-145)
--- NOTE | 2019-06-03 23:01 | RAD_ITS ---
STUDY: X-RAY CHEST REASON FOR EXAM: Male, 53 years old. SOB, HYPOXIA TECHNIQUE: AP portable upright COMPARISON: 05/09/2018 chest radiograph and CTA chest from 06/01/2018 FINDINGS: The lungs demonstrate minimal blunting of the costophrenic angles. Normal size heart. Normal mediastinum and sky. Normal visualized pulmonary arteries. There is atherosclerotic calcification of the aortic arch with tortuosity. Normal visualized thoracic spine. Normal visualized ribs, clavicles, and shoulders. There is no demonstrated abnormality of the visualized soft tissue structures of the upper abdomen. RAD/Chest 1 View (Portable) IMPRESSION: Bibasilar atelectasis and small pleural effusions. Electronically Signed: Stanley Siegel, at 1:35 EST Tel , Service support ,
--- NOTE | 2019-06-03 23:02 | EKG12_ITS ---
Test Reason : SOB Blood Pressure : / mmHG Vent. Rate : 094 BPM Atrial Rate : 208 BPM P-R Int : 000 ms QRS Dur : 154 ms QT Int : 376 ms P-R-T Axes : 000 056 031 degrees QTc Int : 470 ms Atrial fibrillation Right bundle branch block Abnormal ECG Confirmed by NORRIS SMITH ([id number]), video news editor RAFFAELE MCDANIEL ([id number]) on 06/06/2019 2:01:43 PM Referred By: CADEN Confirmed By:NORRIS SMITH
--- NOTE | 2019-06-03 23:02 | ED.VIS.GEN ---
History of Present Illness Chief Complaint: Shortness of Breath Narrative: Patient is a 53-year-old male who presents with shortness of breath. He has a history of obstructive sleep apnea, pulmonary hypertension, COPD. He was taken off of his steroid inhaler by pulmonology. However he has had increased shortness of breath the last couple of weeks and started using steroid inhaler again. Since last night his shortness of breath has acutely worsened. This has been relieved with albuterol inhaler or nebulizer. He also reports fever today. He has had slightly increased cough and sputum as well as some mild congestion and rhinorrhea. He was febrile on arrival here to triage and found to be hypoxic with a pulse ox of 85% on room air. He is not on oxygen at home. No vomiting. No diarrhea. He denies any pain. Past Medical History - Allergies and Home Meds Allergies/Adverse Reactions: Allergies adhesive tape Allergy (Verified 06/03/19 22:46) Rash codeine Allergy (Verified 06/03/19 22:46) rash levofloxacin [From Levaquin] Allergy (Verified 06/03/19 22:46) hives and swelling oxycodone Allergy (Verified 06/03/19 22:46) hives Primary Care Physician: Al Mondragon MD [Primary Care Provider] - Past Medical History: - - Diabetes, hypertension, atrial fibrillation, obstructive sleep apnea, morbid obesity, COPD, asthma, pulmonary hypertension Surgical History: noncontributory, - Smoking Status: Former smoker - Family History Paternal Family History: Reports: No pertinent history, - - The patient's father is 67 years of age, living, with a history of colon cancer. The patient's mother 67 years of age with a history of breast cancer. Maternal Family History: Reports: No pertinent history Review of Systems All systems negative except as indicated General: Reports: Fever Eyes: Denies: Visual changes - bilaterally ENT: Denies: Bilateral ear pain Cardiovascular: Denies: Chest pain Respiratory: Reports: Dyspnea, Cough, Sputum Gastrointestinal: Denies: Abdominal pain, Nausea, Vomiting, Diarrhea Musculoskeletal: Denies: Back pain Skin: Denies: Rash Neurological: Denies: Headache Hematologic: Denies: Easy bruising Allergy: Denies: Uticaria Physical Exam Vital Signs/Narrative: Vital Signs Temp Pulse Resp BP Pulse Ox 06/03/19 22:53 95 20 H 138/80 H 97 06/03/19 22:50 24 H 98 06/03/19 22:14 100.8 F H 100 22 H 85 06/03/19 22:13 170/87 H 93 Inital Vital Signs reviewed: Yes General: Well nourished, Obese Head: Normocephalic Eyes: EOMI ENT: Moist mucous membranes Neck: Supple Cardiovascular: Irregular, - - Heart is irregularly irregular but normal rate Respiratory: - - Slightly tachypnea, diminished air exchange Abdomen: Soft, Nontender Back: Nontender Extremities: - - Lymphedema Skin: Normal color Neurological: Alert Psychological: Normal affect Diagnostic/Tx/Re-eval Impressions Chest X-Ray 06/03/19 23:01 IMPRESSION: Bibasilar atelectasis and small pleural effusions. Electronically Signed: Stanley Siegel, at 1:35 EST Tel , Service support , 06/03/19 23:01 CXR [Chest 1 View (Portable)] [RAD] Stat 06/03/19 23:20 Mucosa - Nose Influenza Types A,B Direct FA (JOSHUA) - Final Laboratory Results 06/03/19 06/03/19 06/03/19 22:25 22:25 22:25 WBC 11.6 H RBC 4.28 L Hgb 11.7 L Hct 37.4 L MCV 87.4 MCH 27.3 MCHC 31.3 L RDW Std Deviation 56.1 H RDW Coeff of Brina 17.9 H Plt Count 213 MPV 9.2 Immature Gran % (Auto) 0.500 Neut % (Auto) 83.2 H Lymph % (Auto) 7.0 L [place] % (Auto) 5.8 Eos % (Auto) 2.9 Baso % (Auto) 0.6 Absolute Neuts (auto) 9.6 H Absolute Lymphs (auto) 0.81 L Nucleated RBC % 0 PT INR Sodium 139 Potassium 4.0 Chloride 105 Carbon Dioxide 31.0 Anion Gap 3 L BUN 13 Creatinine 0.93 Estim Creat Clear Calc 101.98 Est GFR (MDRD) Af Amer 109 Est GFR (MDRD) Non-Af 90 BUN/Creatinine Ratio 14.0 Glucose 229 H Lactic Acid 1.8 Calcium 8.6 Total Bilirubin 0.80 AST 14 L ALT 24 Alkaline Phosphatase 69 Troponin I B-Natriuretic Peptide Total Protein 7.8 Albumin 3.5 Globulin 4.3 H Albumin/Globulin Ratio 0.8 L 06/03/19 06/03/19 06/03/19 22:25 22:25 22:25 WBC RBC Hgb Hct MCV MCH MCHC RDW Std Deviation RDW Coeff of Brina Plt Count MPV Immature Gran % (Auto) Neut % (Auto) Lymph % (Auto) [place] % (Auto) Eos % (Auto) Baso % (Auto) Absolute Neuts (auto) Absolute Lymphs (auto) Nucleated RBC % PT 24.2 H INR 2.2 Sodium Potassium Chloride Carbon Dioxide Anion Gap BUN Creatinine Estim Creat Clear Calc Est GFR (MDRD) Af Amer Est GFR (MDRD) Non-Af BUN/Creatinine Ratio Glucose Lactic Acid Calcium Total Bilirubin AST ALT Alkaline Phosphatase Troponin I < 0.015 B-Natriuretic Peptide 59.1 Total Protein Albumin Globulin Albumin/Globulin Ratio - Medical Decision Making Laboratory study and imaging as above. Rapid influenza was negative. Chest x-ray shows no focal infiltrate. Negative troponin and normal BNP. Patient was given IV Solu-Medrol and aerosols here with marked improvement. Patient wanted to see how he did off oxygen for possible outpatient treatment. He was taken off nasal cannula and even at rest on room air was 90% and even with a few steps desaturated to 87%. Therefore he does agree to hospitalization and was placed back on nasal cannula. I believe this is most likely related to COPD given that he had severely diminished air exchange and significant improvement with aerosols and Solu-Medrol. Patient will be discussed with hospitalist and admitted. ED Disposition - Plan for ED Patient: Disposition: Acute Care Hospital [facility] Diagnosis: COPD exacerbation Referrals: Al Mondragon MD [Primary Care Provider] -
[2019-06-03 23:03] LABS: Lactic Acid 1.8 mmol/L (0.4-1.9)
[2019-06-03] MEDS: Ipratropium/Albuterol Sulfate 3 ML AMPUL.NEB INHALATION (23:13)
[2019-06-03] MEDS: Albuterol 2.5 MG/3 ML VIAL.NEB. INHALATION (23:13)
[2019-06-03 23:14] VITALS: PULSE 111; RESP 18
[2019-06-03 23:26] LABS: International Normalized Ratio 2.2; Prothrombin Time (Protime)PT. 24.2 SECONDS (11.7-14.9)
[2019-06-03 23:59] LABS: BNP,B-Type NATRIURETIC PEPTIDE 59.1 pg/mL (0-100)
[2019-06-04] VITALS (14 sets, daily range): BP systolic 125–156; BP diastolic 61–98; PULSE 76–110; RESP 18–24; TEMP 36.3–38.2; O2SAT 92–97; BMI 52.0; BMI 52.1
[2019-06-04] MEDS: MethylPREDNISolone 125 MG/2 ML Vial IV (00:01)
--- NOTE | 2019-06-04 01:29 | ED.RN ---
radiology calling to inquire about xrays results
--- NOTE | 2019-06-04 02:21 | PCM.HP.STD ---
Problem List (1) COPD exacerbation Status: Chronic (2) Shortness of breath Status: Acute (3) Chronic atrial fibrillation Status: Chronic (4) Right bundle branch block (RBBB) Status: Chronic (5) Secondary pulmonary arterial hypertension Status: Chronic (6) Essential (primary) hypertension Status: Chronic (7) Hypercholesteremia Status: Chronic (8) Exogenous obesity Status: Chronic (9) [place]RO (obstructive sleep apnea) Status: Chronic (10) Morbid obesity due to excess calories Status: Chronic History of Present Illness Date of Admission: 06/04/19 Chief Complaint: SOB The patient is a 53 year old M with a significant history of COPD; diabetes mellitus; and atrial fibrillation who presented to emergency department with progressively worsening shortness of breath. His symptoms started on the same day of presentation. Associated with symptoms is malaise, chills and rigors. He had some productive cough which has since disappeared. At presentation his initial oxygen saturation was 85%. Later his oxygen saturation improved to 90%. However with ambulation his oxygen saturation dropped to 87% so a decision was made to admit patient. Patient works at the [employer]. Past Medical History Past Medical History (Chronic Problems): Chronic Problems (Last Reviewed 06/04/19 @ 05:[address] Huber Medrano MD) COPD exacerbation (Chronic) Chronic atrial fibrillation (Chronic) Right bundle branch block (RBBB) (Chronic) Secondary pulmonary arterial hypertension (Chronic) Essential (primary) hypertension (Chronic) Hypercholesteremia (Chronic) Exogenous obesity (Chronic) MIL[place]RO (obstructive sleep apnea) (Chronic) Morbid obesity due to excess calories (Chronic) Medical History: Medical History (Last Reviewed 06/04/19 @ 07:[address] Huber Medrano MD) Chronic atrial fibrillation (Chronic) I48.2 Right bundle branch block (RBBB) (Chronic) I45.10 Secondary pulmonary arterial hypertension (Chronic) I27.21 Essential (primary) hypertension (Chronic) I10 Hypercholesteremia (Chronic) E78.00 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 MIL[place]RO (obstructive sleep apnea) (Chronic) G47.33 Morbid obesity due to excess calories (Chronic) E66.01 COPD (chronic obstructive pulmonary disease) J44.9 Cellulitis of right leg L03.115 Obstructive sleep apnea G47.33 Sciatica M54.30 Super-super obese E66.01 Type 2 diabetes mellitus E11.9 Venous hypertension, chronic I87.309 Venous insufficiency I87.2 Venous ulcer of right leg I83.019, L97.919 Mild intermittent asthma (Inactive) J45.20 Super-super obese (Inactive) E66.9 Swelling of lower limb (Inactive) M79.89 Venous hypertension, chronic, with ulcer and inflammation (Inactive) I87.339 Allergies adhesive tape Allergy (Verified 06/03/19 22:46) Rash codeine Allergy (Verified 06/03/19 22:46) rash levofloxacin [From Levaquin] Allergy (Verified 06/03/19 22:46) hives and swelling oxycodone Allergy (Verified 06/03/19 22:46) hives Home Medications: Ambulatory Orders Medication Instructions Recorded Atorvastatin Calcium [Lipitor] 10 mg PO QHS 01/29/15 Lisinopril [Zestril] 5 mg PO DAILY 01/29/15 Betaxolol HCl 10 mg PO DAILY 03/03/17 Metformin HCl 1,000 mg PO BID 03/03/17 diltiazem HCl 120 mg 360 mg PO DAILY cap 06/07/18 capsule,extended release 24 hr furosemide 40 mg tablet 80 mg PO DAILY tab 08/08/18 meclizine 25 mg tablet 25 mg PO DAILY PRN 8 Days #32 tab 08/08/18 vitamin B complex 1 tab PO DAILY 08/08/18 warfarin 10 mg tablet 10 mg PO 1800 08/08/18 albuterol sulfate 90 mcg/actuation 2 puff INHALATION Q4H PRN g 12/19/18 aerosol inhaler Fluticasone 0.05% [Flonase Nasal 2 spray NASAL DAILY PRN 03/14/19 [place]] Insulin Glargine,Hum.rec.anlog 60 units SQ QHS 03/14/19 [Toujeo Solostar] Triamcinolone 0.1% Cream [Kenalog] 1 applic TOPICAL BID PRN 03/14/19 Gabapentin [Neurontin] 300 mg PO BIDCM 06/04/19 Glimepiride 4 mg PO DAILY 06/04/19 Surgical History: Surgical History (Last Reviewed 06/04/19 @ 07:[address] Huber Medrano MD) penile reconstruction Surgical History: noncontributory, - Psychiatric History: No pertinent psych hx Lives: With Family Smoking Status: Former smoker - *Family History Paternal History Items: - - The patient's father is 67 years of age, living, with a history of colon cancer. The patient's mother 67 years of age with a history of breast cancer. Maternal History Items: Cancer, - - Lupus Review of Systems Constitutional: Reports: Chills. Denies: Fever, Weight Change HEENT: Denies: Head Aches, Sinus Congestion, Sinus Drainage Cardiovascular: Denies: Chest Pain, Palpitations Respiratory: Reports: Cough, Shortness of Breath, Sputum production, Wheezing. Denies: Shortness of breath at rest Gastrointestinal: Denies: Abdominal Pain, Nausea, Vomiting Genitourinary: Denies: Dysuria Musculoskeletal: Denies: Joint Pain, Joint Tenderness Skin: Denies: Rash, Wounds Neurological: Denies: Numbness, Tingling, Focal weakness Psychiatric: Denies: Anxiety, Depression, Homicidal Ideations, Suicidal Ideations Hematologic/ Lymphatic: Denies: Easy Bruising, Easy Bleeding VTE Information - Inpt Only VTE Present on Admission: No VTE Mechan Device Prophylaxis: None VTE Pharm Prophylaxis ordered?: Yes Reason prophylaxis not ordered:: Treatment Not Indicated - Coumadin for A. fib continued - Physical Exam Vitals/I&O's: Vital Signs Temp Pulse Resp BP Pulse Ox 100.7 F H 96 18 134/61 H 92 06/04/19 00:00 06/04/19 01:04 06/04/19 01:04 06/04/19 01:04 06/04/19 01:04 Oxygen Flow Rate (L/min) 1 Oxygen Delivery Method Nasal Cannula Weight: 173.8 kg Body Mass Index (BMI) 52.0 General: Alert, Oriented x3, Cooperative HEENT: Atraumatic, PERRLA, EOMI, Normocephalic Neck: Supple, Trachea Midline Lungs: Diminished, Tachypneic Cardiovascular: Normal S1, Normal S2, No murmurs, Irregular Rate, Tachycardic Abdomen: Bowel Sounds Present, Soft, Non Tender Extremities: No edema, Capillary Refill Less than 3 Seconds Skin: No rashes, No breakdown Musculoskeletal: No Tenderness to Palpation of Joints or Extremities Neurological: Cranial nerves II-XII grossly intact Psych/Mental Status: Normal Affect, Appropriate Microbiology Past 72 Hours 06/03/19 23:20 Mucosa - Nose Influenza Types A,B Direct FA (JOSHUA) - Final Laboratory Results 06/03/19 22:25: Lactic Acid 1.8 06/03/19 22:25: WBC 11.6 H, RBC 4.28 L, Hgb 11.7 L, Hct 37.4 L, MCV 87.4, MCH 27.3, MCHC 31.3 L, RDW Std Deviation 56.1 H, RDW Coeff of Brina 17.9 H, Plt Count 213, MPV 9.2, Immature Gran % (Auto) 0.500, Neut % (Auto) 83.2 H, Lymph % (Auto) 7.0 L, [place] % (Auto) 5.8, Eos % (Auto) 2.9, Baso % (Auto) 0.6, Absolute Neuts (auto) 9.6 H, Absolute Lymphs (auto) 0.81 L, Nucleated RBC % 0 06/03/19 22:25: Sodium 139, Potassium 4.0, Chloride 105, Carbon Dioxide 31.0, Anion Gap 3 L, BUN 13, Creatinine 0.93, Estim Creat Clear Calc 101.98, Est GFR (MDRD) Af Amer 109, Est GFR (MDRD) Non-Af 90, BUN/Creatinine Ratio 14.0, Glucose 229 H, Calcium 8.6, Total Bilirubin 0.80, AST 14 L, ALT 24, Alkaline Phosphatase 69, Total Protein 7.8, Albumin 3.5, Globulin 4.3 H, Albumin/Globulin Ratio 0.8 L 06/03/19 22:25: Troponin I < 0.015 06/03/19 22:25: B-Natriuretic Peptide 59.1 06/03/19 22:25: PT 24.2 H, INR 2.2 Current Medications Sodium Chloride () 1,000 mls @ 50 mls/hr IV .Q20H KAYLEE Last Admin: 06/03/19 23:22 Dose: Not Given Documented by: Assessment/Plan All Active Problems (Last Reviewed 06/04/19 @ 05:[address] Huber Medrano MD) Shortness of breath (Acute) The patient is a 53 year old M with a significant history of COPD; diabetes mellitus; and atrial fibrillation who presented to emergency department with progressively worsening shortness of breath and found to have a fever with T-max of 100.7; tachycardia and tachypnea consistent with acute febrile illness. Acute febrile illness Differentials include viral syndrome or COPD exacerbation Impression of chest x-ray: Basal atelectasis and small pleural effusion. Chest x-ray was independently reviewed. I agree with radiologist interpretation. Doxycycline was started at the emergency department; continue. Solu-Medrol 25 mg was given to emergency department. Continue patient on Solu-Medrol 40 mg every [address] patient on scheduled DuoNeb and PRN albuterol. Tylenol for fever. Influenza screen was negative. Get comprehensive respiratory pathogen panel. Atrial fibrillation Chronic Coumadin and Cardizem continued. INR is therapeutic; trend. HTN On presentation his blood pressure was not within goal On home betaxolol Cardizem continued Lisinopril continued. Trend BP and adjust bp meds History of edema Lasix continued. Hyperlipidemia Lipitor continued Diabetes mellitus with hyperglycemia Basal insulin continued. Metformin held in the setting of acute disease. Glimepiride continued. Accu-Chek with correction scale insulin ordered. Super morbid obesity BMI of 52.1; complicates care. DVTprophylaxis Not indicated since patient is on Coumadin for A. fib; and INR is therapeutic. Code Visit Inpatient E&M: 93979 Init Hosp L3
--- NOTE | 2019-06-04 02:31 | ED.RN ---
PT STARTED AT 94% ON ROOM AIR. AFTER WALKING APPROXIMATELY 6 FEET PULSE OX 87%. DR NEGRETE NOTIFIED
[2019-06-04] MEDS: Doxycycline 100 MG CAPSULE PO ×3 (03:32→22:13)
[2019-06-04] MEDS: 0.9% Normal Saline 1,000 ML 50 ML IV ×2 (05:32→22:27)
[2019-06-04] MEDS: guaiFENesin 1,200 MG Tablet 1200 MG PO ×2 (05:33→22:13)
[2019-06-04 05:50] LABS: Bedside Glucose 255 mg/dL (70-110)
[2019-06-04 06:32] LABS: Anion Gap 9 (5-15); BUN 14 mg/dL (7-18); BUN/Creat Ratio 14.3 RATIO (10-20); Calcium,Total 8.8 mg/dL (8.5-10.1); Chloride 101 mmol/L (98-107); Creatinine, Serum 0.98 mg/dL (0.70-1.30); EST Glomerular Filtration Rate 85 mL/min (>60); Est Glom Filt Rate - Afr Amer 103 mL/min (>60); Estimated Creatinine Clearance 96.78 ml/min; Glucose 297 mg/dL (74-106); Potassium 4.4 mmol/L (3.5-5.1); Sodium Level 136 mmol/L (136-145)
[2019-06-04] MEDS: Ipratropium/Albuterol Sulfate 3 ML AMPUL.NEB INHALATION ×4 (07:05→18:46)
[2019-06-04] MEDS: Gabapentin 300 MG Capsule PO ×2 (08:29→18:16)
[2019-06-04] MEDS: Vitamin B Comp W-C Capsule 1 CAP PO (08:29)
[2019-06-04] MEDS: Glimepiride 4 MG Tablet PO (08:29)
[2019-06-04] MEDS: Insulin Lispro 100 UNIT/ML INSULN.PEN SC ×7 (08:32→22:13)
[2019-06-04] MEDS: dilTIAZem CD 180 MG Capsule 360 MG PO (10:50)
[2019-06-04] MEDS: Furosemide 80 MG Tablet PO (10:51)
[2019-06-04] MEDS: Lisinopril 5 MG Tablet PO (10:51)
[2019-06-04] MEDS: Glucerna Shake 120 ML LIQUID PO (10:55)
[2019-06-04 11:24] LABS: Absolute Lymphocyte Count 0.52 X10^3/uL (0.83-4.51); Basophil# 0.05 X10^3/uL; Basophil% 0.5 % (0-1); Differential Indicated SCAN CRITERIA MET; Eosinophil# 0.01 X10^3/uL; Eosinophils% 0.1 % (0-5); Hematocrit 35.7 % (40-54); Hemoglobin 11.5 g/dL (13.0-16.5); Lymphocyte # 0.52 X10^3/ul (4.0); Lymphocyte % 4.8 % (19-41); Mean Corp Hgb Conc 32.2 g/dL (32-36); Mean Corpuscular Hgb 27.8 pg (27.0-32.0); Mean Corpuscular Volume 86.2 fL (80-94); Mean Platelet Vol. 10.1 fl (6.2-12.0); Monocyte# 0.12 X10^3/uL; Monocyte% 1.1 % (0-10); NRBC Flagged by Analyzer 0 % (0-5); Neutrophil # 9.96 X10^3/uL (2.7-7.7); Neutrophil % 92.8 % (47-70); POSITIVE DIFFERENTIAL YES; Platelet Count 219 K/mm3 (150-450); RBC Distribution Width CV 17.7 % (11.6-14.6); RBC Distribution Width SD 54.3 fl (35.1-43.9); Red Blood Count 4.14 M/mm3 (4.6-6.2); White Blood Count 10.7 K/mm3 (4.4-11.0)
[2019-06-04 11:39] LABS: Differential Comment SCANNED
[2019-06-04 12:41] LABS: Bedside Glucose 346 mg/dL (70-110)
[2019-06-04] MEDS: 0.9% Saline Lock 10 ML Syringe IV (15:00)
--- NOTE | 2019-06-04 15:41 | PCM.PN.HOSP ---
Reason for Visit: COPD exacerbation Subjective: Breathing better after treatment. Vitals/I&O's: Vital Signs Temp Pulse Resp BP Pulse Ox 36.3 C L 76 18 125/71 H 93 06/04/19 15:04 06/04/19 15:04 06/04/19 15:04 06/04/19 15:04 06/04/19 15:04 Oxygen Flow Rate (L/min) 2 Oxygen Delivery Method Nasal Cannula Weight: 174.2 kg Body Mass Index (BMI) 52.0 General: Alert, Cooperative, No apparent distress HEENT: Atraumatic, Normocephalic Oral: Moist Mucosa, No Gingival or Mucosal Lesions/ Ulcerations Neck: No Nodes, Trachea Midline Lungs: Diminished, Wheezes - faint Cardiovascular: Regular rate, Regular Rhythm, Normal S1, Normal S2 Abdomen: Bowel Sounds Present, Soft, Non Tender, Non-Distended Extremities: No edema, No Calf Tenderness Psych/Mental Status: Normal Affect, Appropriate Microbiology Past 72 Hours 06/03/19 23:20 Mucosa - Nose Influenza Types A,B Direct FA (JOSHUA) - Final Laboratory Results 06/03/19 22:25: Lactic Acid 1.8 06/03/19 22:25: WBC 11.6 H, RBC 4.28 L, Hgb 11.7 L, Hct 37.4 L, MCV 87.4, MCH 27.3, MCHC 31.3 L, RDW Std Deviation 56.1 H, RDW Coeff of Brina 17.9 H, Plt Count 213, MPV 9.2, Immature Gran % (Auto) 0.500, Neut % (Auto) 83.2 H, Lymph % (Auto) 7.0 L, [place] % (Auto) 5.8, Eos % (Auto) 2.9, Baso % (Auto) 0.6, Absolute Neuts (auto) 9.6 H, Absolute Lymphs (auto) 0.81 L, Nucleated RBC % 0 06/03/19 22:25: Sodium 139, Potassium 4.0, Chloride 105, Carbon Dioxide 31.0, Anion Gap 3 L, BUN 13, Creatinine 0.93, Estim Creat Clear Calc 101.98, Est GFR (MDRD) Af Amer 109, Est GFR (MDRD) Non-Af 90, BUN/Creatinine Ratio 14.0, Glucose 229 H, Calcium 8.6, Total Bilirubin 0.80, AST 14 L, ALT 24, Alkaline Phosphatase 69, Total Protein 7.8, Albumin 3.5, Globulin 4.3 H, Albumin/Globulin Ratio 0.8 L 06/03/19 22:25: Troponin I < 0.015 06/03/19 22:25: B-Natriuretic Peptide 59.1 06/03/19 22:25: PT 24.2 H, INR 2.2 06/04/19 05:29: POC Glucose 255 H 06/04/19 06:00: WBC 10.7, RBC 4.14 L, Hgb 11.5 L, Hct 35.7 L, MCV 86.2, MCH 27.8, MCHC 32.2, RDW Std Deviation 54.3 H, RDW Coeff of Brina 17.7 H, Plt Count 219, MPV 10.1, Immature Gran % (Auto) 0.700, Neut % (Auto) 92.8 H, Lymph % (Auto) 4.8 L, [place] % (Auto) 1.1, Eos % (Auto) 0.1, Baso % (Auto) 0.5, Absolute Neuts (auto) 10.0 H, Absolute Lymphs (auto) 0.52 L, Nucleated RBC % 0, Differential Comment SCANNED 06/04/19 06:00: Sodium 136, Potassium 4.4, Chloride 101, Carbon Dioxide 26.0, Anion Gap 9, BUN 14, Creatinine 0.98, Estim Creat Clear Calc 96.78, Est GFR (MDRD) Af Amer 103, Est GFR (MDRD) Non-Af 85, BUN/Creatinine Ratio 14.3, Glucose 297 H, Calcium 8.8 06/04/19 12:27: POC Glucose 346 H Current Medications Acetaminophen (Tylenol) 650 mg PO Q6H PRN PRN PRN Reason: Pain Score 1-10/Temp > 100.7 F Albuterol Sulfate (Ventolin Aerosols) 2.5 mg INHALATION Q2H PRN PRN PRN Reason: Shortness of Breath/Wheezing Albuterol/Ipratropium (Duoneb) 3 ml INHALATION Q4HWA.RT KAYLEE Last Admin: 06/04/19 15:29 Dose: 3 ml Documented by: Atorvastatin Calcium (Lipitor) 10 mg PO QHS KAYLEE Betaxolol HCl (Betaxolol Hcl) 10 mg PO BREAKFAST KYALEE Diltiazem HCl (Cardizem Cd) 360 mg PO DAILY [facility] Last Admin: 06/04/19 10:50 Dose: 360 mg Documented by: Doxycycline Monohydrate (Doxycycline) 100 mg PO BID [facility] Last Admin: 06/04/19 10:50 Dose: 100 mg Documented by: Fluticasone Propionate (Flonase Nasal [place]) 2 spray NASAL DAILY PRN PRN Reason: ALLERGIES Furosemide (Lasix) 80 mg PO DAILY [facility] Last Admin: 06/04/19 10:51 Dose: 80 mg Documented by: [facility]) [facility] Last Admin: 06/04/19 08:29 Dose: 300 mg Documented by: Glimepiride (Amaryl) [facility] Last Admin: 06/04/19 08:29 Dose: 4 mg Documented by: Glucagon () 1 mg IM .X1 PRN PRN Reason: Hypoglycemia Guaifenesin (Mucinex) 1,200 mg PO BID [facility] Last Admin: 06/04/19 05:33 Dose: 1,200 mg Documented by: Sodium Chloride () 1,000 mls @ 50 mls/hr IV .Q20H [facility] Last Admin: 06/04/19 05:32 Dose: 50 mls/hr Documented by: Dextrose (Dextrose 10%-Water) 250 mls @ 999 mls/hr IV .Q16M PRN; Protocol PRN Reason: HYPOGLYCEMIA Insulin Glargine (Lantus (Bkc)) 60 units SC DAILY [facility] Last Admin: 06/04/19 10:50 Dose: 60 u Documented by: Insulin Human Lispro (Humalog Kwikpen (Bkc)) 4 unit SC BREAKFAST [facility] Last Admin: 06/04/19 08:32 Dose: 4 u Documented by: Insulin Human Lispro (Humalog Kwikpen (Bkc)) 4 unit SC DINNER [facility] Insulin Human Lispro (Humalog Kwikpen (Bkc)) 4 unit SC LUNCH [facility] Last Admin: 06/04/19 12:30 Dose: 4 u Documented by: Insulin Human Lispro (Humalog Kwikpen (Bkc)) 0 unit SC [facility]; Protocol Last Admin: 06/04/19 12:30 Dose: 4 u Documented by: Lisinopril (Zestril) 5 mg PO DAILY [facility] Last Admin: 06/04/19 10:51 Dose: 5 mg Documented by: Meclizine HCl (Antivert) 25 mg PO DAILY PRN PRN PRN Reason: Vertigo Methylprednisolone (Solu-Medrol) 40 mg IV Q8 [facility] Last Admin: 06/04/19 15:00 Dose: 40 mg Documented by: Multivitamins (Allbee W/C Caplet, Thera B Comp/C) 1 capsule PO DAILY [facility] Last Admin: 06/04/19 08:29 Dose: 1 capsule Documented by: Ondansetron HCl (Zofran) 4 mg IV Q8H PRN PRN PRN Reason: NAUSEA/VOMITING Sodium Chloride () 10 - 40 ml IV UD PRN PRN Reason: SALINE FLUSH Last Admin: 06/04/19 15:00 Dose: 10 ml Documented by: Triamcinolone Acetonide (Triamcinolone Acetonide) 1 applic TOPICAL BID PRN PRN PRN Reason: RASH/TOPICAL IRRITATION Warfarin Sodium (Coumadin (Pbkc)) 10 mg PO QHS [facility] STROKE Vital Signs/Narrative: Vital Signs Temp Pulse Resp BP Pulse Ox 06/04/19 15:04 36.3 C L 76 18 125/71 H 93 Medical Necessity - Tobacco Use Smoking Status: Former smoker Assessment/Plan All Active Problems (Last Reviewed 06/04/19 @ 07:[address] Huber Medrano MD) Shortness of breath (Acute) 1. 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 Influenza negative. Viral panel pending. improving continue BDs change methylprednisone to q12 check ambulatory pulse ox prior to discharge Upon discharge patient will need a work excuse for the time he was here and for 1-2 more days before he can return Code Visit Procedures: Other Procedure - See Report - non billable rounding as patient seen after midnight.
[2019-06-04 17:35] LABS: Bedside Glucose 335 mg/dL (70-110)
[2019-06-04 21:36] LABS: Bedside Glucose 331 mg/dL (70-110)
[2019-06-04] MEDS: Atorvastatin Calcium 10 MG Tablet PO (22:13)
[2019-06-04] MEDS: MELATONIN 10 MG TABLET PO (22:26)
[2019-06-05 03:10] VITALS: BP 132/78; PULSE 81; RESP 18; TEMP 36.4; O2SAT 93
[2019-06-05 06:07] LABS: Absolute Lymphocyte Count 0.58 X10^3/uL (0.83-4.51); Absolute Neutrophil Count 10.4 X10^3/uL (2.0-7.7); Basophil# 0.02 X10^3/uL; Basophil% 0.2 % (0-1); Hematocrit 34.3 % (40-54); Hemoglobin 10.5 g/dL (13.0-16.5); Lymphocyte # 0.58 X10^3/ul (4.0); Mean Corp Hgb Conc 30.6 g/dL (32-36); Mean Corpuscular Hgb 26.6 pg (27.0-32.0); Mean Corpuscular Volume 86.8 fL (80-94); Mean Platelet Vol. 10.2 fl (6.2-12.0); Monocyte# 0.54 X10^3/uL; Monocyte% 4.6 % (0-10); NRBC Flagged by Analyzer 0 % (0-5); Neutrophil # 10.43 X10^3/uL (2.7-7.7); Neutrophil % 89.2 % (47-70); POSITIVE DIFFERENTIAL YES; Platelet Count 210 K/mm3 (150-450); RBC Distribution Width CV 17.5 % (11.6-14.6); RBC Distribution Width SD 54.4 fl (35.1-43.9); Red Blood Count 3.95 M/mm3 (4.6-6.2); White Blood Count 11.7 K/mm3 (4.4-11.0)
[2019-06-05 06:14] LABS: Differential Indicated SCAN CRITERIA MET
[2019-06-05 06:22] LABS: International Normalized Ratio 1.6
[2019-06-05 06:29] LABS: Anion Gap 5 (5-15); BUN 21 mg/dL (7-18); Chloride 103 mmol/L (98-107); Creatinine, Serum 0.88 mg/dL (0.70-1.30); EST Glomerular Filtration Rate 97 mL/min (>60); Est Glom Filt Rate - Afr Amer 117 mL/min (>60); Estimated Creatinine Clearance 107.78 ml/min; Glucose 310 mg/dL (74-106); Potassium 4.3 mmol/L (3.5-5.1); Sodium Level 135 mmol/L (136-145)
[2019-06-05 06:53] VITALS: PULSE 68; RESP 18; O2SAT 92
[2019-06-05] MEDS: Ipratropium/Albuterol Sulfate 3 ML AMPUL.NEB INHALATION ×2 (06:53→10:59)
[2019-06-05 07:08] LABS: Differential Comment SCANNED
[2019-06-05 07:56] VITALS: BP 133/59; PULSE 86; RESP 18; TEMP 36.4; O2SAT 93
[2019-06-05] MEDS: Glimepiride 4 MG Tablet PO (08:33)
[2019-06-05] MEDS: Insulin Lispro 100 UNIT/ML INSULN.PEN SC ×4 (08:34→12:20)
[2019-06-05] MEDS: dilTIAZem CD 180 MG Capsule 360 MG PO (08:35)
[2019-06-05] MEDS: Gabapentin 300 MG Capsule PO (08:35)
[2019-06-05] MEDS: Doxycycline 100 MG CAPSULE PO (08:35)
[2019-06-05] MEDS: Vitamin B Comp W-C Capsule 1 CAP PO (08:35)
[2019-06-05] MEDS: Furosemide 80 MG Tablet PO (08:36)
[2019-06-05] MEDS: guaiFENesin 1,200 MG Tablet 1200 MG PO (08:36)
[2019-06-05] MEDS: Lisinopril 5 MG Tablet PO (08:36)
[2019-06-05 10:01] LABS: Bedside Glucose 299 mg/dL (70-110)
[2019-06-05 10:59] VITALS: PULSE 68; RESP 18
[2019-06-05] MEDS: 0.9% Saline Lock 10 ML Syringe IV (11:17)
--- NOTE | 2019-06-05 12:15 | CASEMGMT ---
RN CM Face to Face with patient for initial transition planning/care coordination assessment. RN CM introduced self and role at [facility]. Patient sitting in chair, alert and oriented. Patient willing to participate in assessment and is able to answer all questions appropriately. Care providers, pharmacy, and demographics verified. Patient wishes to discharge home, denies need for home health at this time. Patient states he has no further needs or concerns at this time. CM to follow for discharge planning needs that may arise. PCP: [facility] Specialists: Han, proofer; José, pulmonology Preferred Pharmacy: [place] Insurance: [place] Prescription Benefit: yes Living Will/HPOA: none LNOK: mother Living Arrangements: Patient lives in basement apartment at grandmother's, who he cares for. Patient independent at home. Transportation: self, mother DME/HHC: Patient has cpap and nebulizer at home. Patient denies need for HHC. Disposition Plan: Patient to discharge home with family support and follow-up plans in place. Lou PIMENTEL, RN, CM
[2019-06-05 12:20] LABS: Bedside Glucose 341 mg/dL (70-110)
[2019-06-05 12:45] VITALS: O2SAT 89; O2SAT 94
[2019-06-05 13:59] VITALS: BP 139/53; PULSE 62; RESP 18; TEMP 36.4; O2SAT 95
--- NOTE | 2019-06-05 14:36 | PCM.DC ---
- Discharge Diagnoses Current Active Problems: Current Active and Chronic Problems (Last Reviewed 06/04/19 @ 07:[address] Huber Medrano MD) COPD exacerbation (Chronic) You will use the following diet at home:: Calorie/Carbohydrate Controlled (specify 1200, 1400, etc) - 1800 joshua Your food should be the consistency of: Regular Your liquids should be the consistency of: Regular/Thin Discharge Activity: Return to Normal Activity Weight Bearing Status: Full weight bearing Additional Instructions: get your INR checked this week Allergies/Adverse Reactions: Allergies adhesive tape Allergy (Verified 06/03/19 22:46) Rash codeine Allergy (Verified 06/03/19 22:46) rash levofloxacin [From Levaquin] Allergy (Verified 06/03/19 22:46) hives and swelling oxycodone Allergy (Verified 06/03/19 22:46) hives Medications to take at Discharge Atorvastatin Calcium [Lipitor] 10 mg PO QHS 01/29/15 Lisinopril [Zestril] 5 mg PO DAILY 01/29/15 Betaxolol HCl 10 mg PO DAILY 03/03/17 Metformin HCl 1,000 mg PO BID 03/03/17 diltiazem HCl 120 mg capsule,extended release 24 hr 360 mg PO DAILY cap 06/07/18 furosemide 40 mg tablet 80 mg PO DAILY tab 08/08/18 meclizine 25 mg tablet 25 mg PO DAILY PRN 8 Days #32 tab 08/08/18 vitamin B complex 1 tab PO DAILY 08/08/18 warfarin 10 mg tablet 10 mg PO 1800 08/08/18 albuterol sulfate 90 mcg/actuation aerosol inhaler 2 puff INHALATION Q4H PRN g 12/19/18 Fluticasone 0.05% [Flonase Nasal [place]] 2 spray NASAL DAILY PRN 03/14/19 Insulin Glargine,Hum.rec.anlog [Toujeo Solostar] 60 units SQ QHS 03/14/19 Triamcinolone 0.1% Cream [Kenalog] 1 applic TOPICAL BID PRN 03/14/19 Gabapentin [Neurontin] 300 mg PO BIDCM 06/04/19 Glimepiride 4 mg PO DAILY 06/04/19 Prednisone 10 mg PO UD #30 tab 06/05/19 The following prescriptions were given: Prednisone 10 mg PO UD #30 tab Prescription Printed Primary Care Physician: Al Mondragon MD [Primary Care Provider] - Test Results: Test results from this visit will be discussed in further detail at your follow-up appointment, if applicable. Please Follow Up With: Al Mondragon MD
--- NOTE | 2019-06-06 12:04 | CASEMGMT ---
[facility] PHONE CALL DC DATE: 06.05.2019 DC Disposition: Home Diagnosis on Discharge: COPD exacerbation LACE/STRATA: 01/12 F/U appointments made: yes Attempted call to patient. No answer, but voice message machine had name identifier. Message left with call back information if pt had questions re: instructions, prescriptions or f/u. Elise [facility]
--- NOTE | 2019-06-07 08:39 | DS.PCM_ITS ---
Discharge Date and Diagnosis Date of Admission: 06/04/19 Date of Discharge: 06/05/19 - Primary Discharge Diagnosis #1 acute exacerbation of COPD #2 obstructive sleep apnea #3 pulmonary hypertension - Secondary Discharge Diagnosis Chronic Problems (Last Reviewed 06/04/19 @ 07:[address] Huber Medrano MD) COPD exacerbation (Chronic) Chronic atrial fibrillation (Chronic) Right bundle branch block (RBBB) (Chronic) Secondary pulmonary arterial hypertension (Chronic) Essential (primary) hypertension (Chronic) Hypercholesteremia (Chronic) Exogenous obesity (Chronic) MILAGRO (obstructive sleep apnea) (Chronic) Morbid obesity due to excess calories (Chronic) Hospital Course and Treatment Operations: None Procedures: None Summary of Care Provided: The patient is a 53 year old M who presented to the emergency room at [facility] with a chief complaint of shortness of breath. Patient has a history of lung issues including COPD, pulmonary hypertension, and obstructive sleep apnea. Rapid influenza test was obtained in the emergency room-this was negative, chest x-ray showed no focal infiltrate. Patient was given IV Solu- Medrol and improved somewhat in the emergency room. He was walked without oxygen in the emergency room prior to an anticipated discharge, however, patient desaturated to 87% and he was admitted to [place] [id number] for exacerbation of COPD. Patient received aerosol treatments and continued IV Solu-Medrol. Patient improved over the next 48 hours. On 06/05/2019, patient was seen and examined: On examination he appeared in good health and spirits. Vital signs as documented. Skin warm and dry and without overt rashes. Neck without JVD. Lungs clear. Heart exam notable for regular rhythm, normal sounds and absence of murmurs, rubs or gallops. Abdomen unremarkable and without evidence of organomegaly, masses, or abdominal aortic enlargement. Extremities nonedematous. Neuro: Cranial nerves II through XII are grossly intact, no focal motor deficits were noted, sensation to light touch and pinprick intact. Psych: Patient is alert and oriented x3, he does not appear anxious or depressed On 06/05/2019, patient was seen and examined and felt to be in stable condition for discharge home. - Physical Exam Vitals/I&O's: Vital Signs Temp Pulse Resp BP Pulse Ox 97.6 F L 62 18 139/53 H 95 06/05/19 13:59 06/05/19 13:59 02/24/20 13:59 06/05/19 13:59 06/05/19 13:59 Oxygen Flow Rate (L/min) [ 0 AMBULATING on Room Air] Oxygen Flow Rate (L/min) [At 0 REST on Room Air] Oxygen Flow Rate (L/min) 2 Oxygen Delivery Method Room Air Weight: 174.2 kg Body Mass Index (BMI) 52.0 Intake and Output for Last 24 Hours 06/05/19 06/06/19 06/07/19 23:59 23:59 23:59 Intake Total 2987.5 / 2987.5 Output Total 4275 / 4275 Balance -1287.5 / -1287.5 Microbiology Past 72 Hours 06/04/19 07:25 Mucosa - Nose Respiratory Panel (PCR) - Final Discharge Activity: Return to Normal Activity Weight Bearing Status: Full weight bearing Home Medications: Medications to take at Discharge Atorvastatin Calcium [Lipitor] 10 mg PO QHS 01/29/15 Lisinopril [Zestril] 5 mg PO DAILY 01/29/15 Betaxolol HCl 10 mg PO DAILY 03/03/17 Metformin HCl 1,000 mg PO BID 03/03/17 diltiazem HCl 120 mg capsule,extended release 24 hr 360 mg PO DAILY cap 06/07/18 furosemide 40 mg tablet 80 mg PO DAILY tab 08/08/18 meclizine 25 mg tablet 25 mg PO DAILY PRN 8 Days #32 tab 08/08/18 vitamin B complex 1 tab PO DAILY 08/08/18 warfarin 10 mg tablet 10 mg PO 1800 08/08/18 albuterol sulfate 90 mcg/actuation aerosol inhaler 2 puff INHALATION Q4H PRN g 12/19/18 Fluticasone 0.05% [Flonase Nasal [place]] 2 spray NASAL DAILY PRN 03/14/19 Insulin Glargine,Hum.rec.anlog [Toujeo Solostar] 60 units SQ QHS 03/14/19 Triamcinolone 0.1% Cream [Kenalog] 1 applic TOPICAL BID PRN 03/14/19 Gabapentin [Neurontin] 300 mg PO BIDCM 06/04/19 Glimepiride 4 mg PO DAILY 06/04/19 Prednisone 10 mg PO UD #30 tab 06/05/19 Following Prescrptions Were Given to Patient: Prednisone 10 mg PO UD #30 tab Prescription Printed Primary Care Physician: Al Mondragon MD [Primary Care Provider] - Please Follow Up With: Al Mondragon MD Disposition: Home Minutes spent on discharge:: 31 Patient Condition:: Stable Medical Necessity - Tobacco Use Smoking Status: Former smoker Meaningful Use Info Meaningful Use Diagnoses (Choose all that apply): None applicable Code Visit Inpatient E&M: 92828 Disch Hosp
== END 2019-06-05 15:12 | disposition home or self-care (01) | DRG 191 ==
LOC: ED 06-04 02:37 → MS3 06-04 03:21
PROVIDERS: Admitting Provider Hospitalist; Emergency Provider Emergency Medicine; PCP Family Medicine; Visit Provider Internal Medicine
DX: J44.1 Chronic obstructive pulmonary disease with (acute) exacerbation (principal); Z68.43 Body mass index [BMI] 50.0-59.9, adult; I48.20 Chronic atrial fibrillation, unspecified; G47.33 Obstructive sleep apnea (adult) (pediatric); E66.01 Morbid (severe) obesity due to excess calories; I10 Essential (primary) hypertension; E78.5 Hyperlipidemia, unspecified; Z87.891 Personal history of nicotine dependence; Z79.4 Long term (current) use of insulin; Z79.01 Long term (current) use of anticoagulants
CPT/HCPCS: 36415; 71045; 80048; 80053; 82962; 83605; 83880; 84484; 85025; 85610; 87633; 87804; 93005; 94640; 94668; 94760; 97802; 99285; J7030; A4216

== ENCOUNTER → 2019-06-27 13:00 | Outpatient (CLI) | payer BC, SELFPAY ==
[2019-06-04 04:08] VITALS: BMI 52.0
--- NOTE | 2019-06-27 13:12 | RAD_ITS ---
STUDY: X-RAY CHEST REASON FOR EXAM: Male, 53 years old. COPD, SOB, SWELLING IN LEG; Hospitalized with SOB in last month TECHNIQUE: PA and lateral views of the chest. COMPARISON: 06/03/2019. FINDINGS: Cardiac silhouette unremarkable. Pulmonary vascularity unremarkable. Aorta unremarkable. No focal airspace opacities. No pleural effusions. Upper abdomen unremarkable. Osseous structures intact. No pneumothorax. RAD/Chest PA and Lateral IMPRESSION: No acute cardiopulmonary findings Electronically Signed: Darrel Jeong, at 18:03 EDT Tel , Service support ,
--- NOTE | 2019-06-27 13:37 | VDLE_ITS ---
Reason For Study: Leg swelling RIGHT GSV is normal. CFV is compressible, spontaneous, competent and demonstrates pulsatile venous flow. FV is compressible, spontaneous, competent and demonstrates pulsatile venous flow. FV mid-distal only visualized with color. POP V is compressible, spontaneous, competent and demonstrates pulsatile venous flow. T/P Trunk is compressible. PTV is compressible. RT PerV is compressible. Procedure Exam performed in department. The study was technically limited. The study was technically difficult. A preliminary report was called and/or faxed to [facility]. Interpretation Summary Deep veins of the right lower extremity are patent and compressible segmentally. There is no evidence of right lower extremity deep vein thrombosis. Valvular competence appears intact within the proximal deep venous system on the right . The right great saphenous vein appears patent and compressible segmentally. Pulsatile flow is noted in the right lower extremity deep venous system, which may be indicative of elevated central venous pressure (i.e. congestive heart failure, tricuspid valve insufficiency, etc.). Clinical correlation is advised. Ordering Physician: Al Mondragon Referring Physician: Al Mondragon Performed By: Lou Glover RVT
[2019-06-27 14:58] LABS: Absolute Lymphocyte Count 1.23 X10^3/uL (0.83-4.51); Absolute Neutrophil Count 6.8 X10^3/uL (2.0-7.7); Basophil# 0.04 X10^3/uL; Basophil% 0.4 % (0-1); Eosinophil# 0.33 X10^3/uL; Eosinophils% 3.6 % (0-5); Hematocrit 38.2 % (40-54); Hemoglobin 11.7 g/dL (13.0-16.5); Lymphocyte # 1.23 X10^3/ul (4.0); Lymphocyte % 13.5 % (19-41); Mean Corp Hgb Conc 30.6 g/dL (32-36); Mean Platelet Vol. 10.1 fl (6.2-12.0); Monocyte# 0.64 X10^3/uL; NRBC Flagged by Analyzer 0 % (0-5); Neutrophil # 6.83 X10^3/uL (2.7-7.7); Neutrophil % 75.3 % (47-70); Platelet Count 191 K/mm3 (150-450); RBC Distribution Width CV 17.2 % (11.6-14.6); RBC Distribution Width SD 54.1 fl (35.1-43.9); Red Blood Count 4.34 M/mm3 (4.6-6.2); White Blood Count 9.1 K/mm3 (4.4-11.0)
[2019-06-27 15:15] LABS: Anion Gap 8 (5-15); BUN 11 mg/dL (7-18); BUN/Creat Ratio 12.2 RATIO (10-20); Calcium,Total 8.9 mg/dL (8.5-10.1); Chloride 101 mmol/L (98-107); EST Glomerular Filtration Rate 93 mL/min (>60); Est Glom Filt Rate - Afr Amer 113 mL/min (>60); Glucose 217 mg/dL (74-106); Potassium 3.8 mmol/L (3.5-5.1); Sodium Level 139 mmol/L (136-145)
== END ==
PROVIDERS: PCP Family Medicine; Referring Provider Family Medicine; Visit Provider Family Medicine
DX: J44.9 Chronic obstructive pulmonary disease, unspecified (principal); M79.89 Other specified soft tissue disorders
CPT/HCPCS: 36415; 71046; 80048; 85025; 93971

== ENCOUNTER → 2019-06-29 13:54 | Outpatient (CLI) | payer BC, SELFPAY ==
[2019-06-04 04:08] VITALS: BMI 52.0
--- NOTE | 2019-06-29 13:57 | US_ITS ---
STUDY: SUPERFICIAL ULTRASOUND - RIGHT THIGH REASON FOR EXAM: Male, 53 years old. SWELLING RIGHT UPPER THIGH TECHNIQUE: A superficial ultrasound was performed with real-time and static salomon-scale imaging. COMPARISON: None. FINDINGS: The area of clinical concern was examined. There is evidence of edematous changes at the site of the abnormality. No mass lesion or focal fluid collection is seen. US/Ext Non Vasc Limited/Soft Tiss IMPRESSION: Edematous changes without a localized collection of fluid or mass lesion. Electronically Signed: Joaquin Bergeron, at 15:36 EDT , Service support ,
== END ==
PROVIDERS: PCP Family Medicine; Referring Provider Family Medicine; Visit Provider Family Medicine
DX: M79.89 Other specified soft tissue disorders (principal)
CPT/HCPCS: 76882

== ENCOUNTER → 2019-07-03 16:23 | Outpatient (CLI) | payer BC, SELFPAY ==
[2019-06-04 04:08] VITALS: BMI 52.0
--- NOTE | 2019-07-03 16:25 | CT_ITS ---
STUDY: CTA CHEST REASON FOR EXAM: Male, 53 years old. SHORTNESS OF BREATH WORSE WITH EXERTION X 1 WK, JUST FINISHED ATB WITH NO RELIEF, NO RECENT TRAVEL, SURG OR FEVER, PREV SMOKER-COPD AND ASTHMA, HAS COUGH TOO, DB,HTN RADIATION DOSAGE (If Supplied By Facility): CTDIvol = ( 13.85 ) mGy, DLP = ( 560.43 ) mGycm TECHNIQUE: The examination was performed with the intravenous administration of IV 100mL Isovue-370. Post-processing of the angiographic images was performed, with multiplanar reformation and 3D reconstruction. Individualized dose optimization techniques were used for this CT. COMPARISON: None. FINDINGS: The heart and pericardium are normal. The aorta is normal in caliber, with no aneurysm or dissection. There is no mediastinal mass or adenopathy. There is no hilar or axillary adenopathy. There is no evidence of pulmonary embolus. There is no pleural effusion. Mild fibrotic changes bilaterally. Several pleural-based or subpleural nodules measure up to 6 mm. The largest nodule, on series 2 image 139, is associated with the pleural surface and major fissure. No pulmonary consolidation. Visualized abdomen is unremarkable. There is no osseous abnormality. CT/CTA Chest W/WO Contrast IMPRESSION: 1. No pulmonary embolus or aortic dissection. 2. Multiple pulmonary nodules, likely fibrotic. If the patient is at high risk for pulmonary malignancy, follow-up CT is advised in 12 months. Electronically Signed: vAa Wagner MD at 17:44 EDT Tel , Service support ,
== END ==
LOC: CT 16:24
PROVIDERS: PCP Family Medicine; Referring Provider Family Medicine; Visit Provider Family Medicine
DX: R06.02 Shortness of breath (principal)
CPT/HCPCS: 71275; Q9967

== ENCOUNTER → 2019-09-25 08:30 | Outpatient (CLI) | payer BC, SELFPAY ==
[2019-08-08 07:44] VITALS: BMI 51.6
[2019-09-25 09:17] LABS: Absolute Lymphocyte Count 0.92 X10^3/uL (0.83-4.51); Absolute Neutrophil Count 5.2 X10^3/uL (2.0-7.7); Basophil# 0.05 X10^3/uL; Basophil% 0.7 % (0-1); Eosinophil# 0.29 X10^3/uL; Eosinophils% 4.1 % (0-5); Hematocrit 35.8 % (40-54); Hemoglobin 11.1 g/dL (13.0-16.5); Lymphocyte # 0.92 X10^3/ul (4.0); Mean Corpuscular Hgb 27.3 pg (27.0-32.0); Mean Platelet Vol. 9.6 fl (6.2-12.0); Monocyte# 0.57 X10^3/uL; Monocyte% 8.1 % (0-10); NRBC Flagged by Analyzer 0 % (0-5); Neutrophil # 5.17 X10^3/uL (2.7-7.7); Neutrophil % 73.4 % (47-70); Platelet Count 202 K/mm3 (150-450); RBC Distribution Width CV 17.2 % (11.6-14.6); RBC Distribution Width SD 54.2 fl (35.1-43.9); Red Blood Count 4.07 M/mm3 (4.6-6.2); White Blood Count 7.1 K/mm3 (4.4-11.0)
[2019-09-28 04:48] LABS: Alternaria alternata <0.10 kU/L (Class 0); Bermuda Grass <0.10 kU/L (Class 0); Bluegrass, Kentucky <0.10 kU/L (Class 0); Cat Hair/Dander, Standard <0.10 kU/L (Class 0); D farinae Mite 0.19 kU/L (Class 0/I); D pteronyssinus <0.10 kU/L (Class 0); Dog Epithelia <0.10 kU/L (Class 0); Elm, American White <0.10 kU/L (Class 0); Oak, White <0.10 kU/L (Class 0); Plantain, English <0.10 kU/L (Class 0); Ragweed, Short/Common <0.10 kU/L (Class 0)
[2019-09-28 07:04] LABS: Mouse Urine <0.10 kU/L (Class 0)
[2019-09-30 03:07] LABS: Aspirgillus flavus Negative (Neg:<1:1); Aspirgillus fumigatus Negative (Neg:<1:1); Aspirgillus niger Negative (Neg:<1:1)
[2019-10-02 05:12] LABS: Immunoglobulin E 44 IU/mL (6-495)
== END ==
PROVIDERS: PCP Family Medicine; Referring Provider Nurse Practitioner Acute Care; Visit Provider Nurse Practitioner Acute Care
DX: J45.909 Unspecified asthma, uncomplicated (principal)
CPT/HCPCS: 36415; 82785; 85025; 86003; 86606

== ENCOUNTER → 2019-12-27 09:31 | Outpatient (CLI) | payer BC, SELFPAY ==
[2019-11-08 05:43] VITALS: BMI 56.8
[2019-12-27 10:16] LABS: Hematocrit 37.6 % (40-54); Hemoglobin 11.9 g/dL (13.0-16.5); Mean Corp Hgb Conc 31.6 g/dL (32-36); Mean Corpuscular Hgb 26.7 pg (27.0-32.0); Mean Corpuscular Volume 84.5 fL (80-94); Mean Platelet Vol. 10.4 fl (6.2-12.0); Platelet Count 190 K/mm3 (150-450); RBC Distribution Width CV 16.2 % (11.6-14.6); RBC Distribution Width SD 48.9 fl (35.1-43.9); Red Blood Count 4.45 M/mm3 (4.6-6.2); White Blood Count 7.5 K/mm3 (4.4-11.0)
[2019-12-27 11:17] LABS: AST(SGOT) 16 U/L (15-37); Alanine Aminotransfer ALT/SGPT 28 U/L (16-61); Albumin, Serum 3.9 g/dL (3.2-5.0); Alkaline Phosphatase 70 U/L (45-117); Anion Gap 10 (5-15); BUN 23 mg/dL (7-18); BUN/Creat Ratio 21.3 RATIO (10-20); Calcium,Total 9.3 mg/dL (8.5-10.1); Chloride 99 mmol/L (98-107); Creatinine, Serum 1.08 mg/dL (0.70-1.30); EST Glomerular Filtration Rate 76 mL/min (>60); Est Glom Filt Rate - Afr Amer 92 mL/min (>60); Glucose 265 mg/dL (74-106); Potassium 3.7 mmol/L (3.5-5.1); Protein, Total 7.9 g/dL (6.4-8.2); Sodium Level 136 mmol/L (136-145); Thyroid Stim Hormone (TSH) 3.29 uIU/mL (0.358-3.74)
== END ==
PROVIDERS: PCP Family Medicine; Referring Provider Family Medicine; Visit Provider Family Medicine
DX: I10 Essential (primary) hypertension (principal); R60.0 Localized edema; E11.65 Type 2 diabetes mellitus with hyperglycemia
CPT/HCPCS: 36415; 80053; 84443; 85027

== ENCOUNTER → 2020-01-25 12:40 | Outpatient (CLI) | payer BC, SELFPAY ==
[2019-11-08 05:43] VITALS: BMI 56.8
[2020-01-25 12:57] LABS: Bacteria 0 SEEN /hpf (None Seen); Mucous, Urine 0 SEEN /hpf (<or=2+); Red Blood Cells-Urine 0 SEEN /hpf (0-5); Squamous Epithelial Cells - UA 0 SEEN /hpf (0-5); White Blood Cells 0 SEEN /hpf (0-5)
[2020-01-25 13:14] LABS: Color, Urine Yellow (Yellow); Glucose, Dipstick Normal (Normal); Ketone-Dipstick Negative (Negative); Leukocyte Esterase-Dipstick Negative /ul (Negative); Nitrite-Dipstick Negative (Negative); Occult Blood-Urine 25 /ul (Negative); Protein-Dipstick Negative (Negative); Specific Gravity, Urine 1.015 (1.002-1.030); Urine Bilirubin Dipstick Negative (Negative); Urine Clarity Clear (Clear); Urine Urobilinogen Normal (Normal)
== END | disposition home or self-care (01) ==
LOC: LABSPEC 12:42
PROVIDERS: PCP Family Medicine; Referring Provider Family Medicine; Visit Provider Family Medicine
CPT/HCPCS: 81001; 87086

== ENCOUNTER → 2020-04-04 | Outpatient (CLI) | payer BC, SELFPAY ==
[2019-11-08 05:43] VITALS: BMI 56.8
== END | disposition home or self-care (01) ==
LOC: LABSPEC 10:38
PROVIDERS: PCP Family Medicine; Referring Provider Family Medicine; Visit Provider Family Medicine
DX: R31.9 Hematuria, unspecified (principal)
CPT/HCPCS: 87086

== ENCOUNTER → 2020-05-03 | Outpatient (CLI) | payer BC, SELFPAY ==
[2019-11-08 05:43] VITALS: BMI 56.8
[2020-05-03 15:22] LABS: Bacteria 0 SEEN /hpf (None Seen); Mucous, Urine 0 SEEN /hpf (<or=2+); Squamous Epithelial Cells - UA 0 SEEN /hpf (0-5); White Blood Cells 0 SEEN /hpf (0-5)
[2020-05-03 15:53] LABS: Color, Urine Yellow (Yellow); Glucose, Dipstick 250 mg/dl (Normal); Ketone-Dipstick Negative (Negative); Leukocyte Esterase-Dipstick 25 /ul (Negative); Nitrite-Dipstick Negative (Negative); Occult Blood-Urine 250 /ul (Negative); Protein-Dipstick 30 mg/dl (Negative); Urine Bilirubin Dipstick Negative (Negative); Urine Clarity Clear (Clear); Urine Urobilinogen Normal (Normal)
[2020-05-03 16:15] LABS: Red Blood Cells-Urine 25-50 SEEN /hpf (0-5)
== END | disposition home or self-care (01) ==
LOC: LABSPEC 15:05
PROVIDERS: PCP Family Medicine; Referring Provider Family Medicine; Visit Provider Family Medicine
DX: R30.0 Dysuria (principal)
CPT/HCPCS: 81001; 87086; 87088

== ENCOUNTER → 2020-08-06 09:50 | Outpatient (CLI) | payer BC, SELFPAY ==
[2020-05-10 08:11] VITALS: BMI 54.8
[2020-08-06 12:54] LABS: Hematocrit 35.4 % (40-54); Hemoglobin 10.8 g/dL (13.0-16.5); Mean Corp Hgb Conc 30.5 g/dL (32-36); Mean Corpuscular Hgb 26.6 pg (27.0-32.0); Mean Corpuscular Volume 87.2 fL (80-94); Mean Platelet Vol. 10.2 fl (6.2-12.0); Platelet Count 189 K/mm3 (150-450); RBC Distribution Width CV 16.9 % (11.6-14.6); RBC Distribution Width SD 53.1 fl (35.1-43.9); Red Blood Count 4.06 M/mm3 (4.6-6.2); White Blood Count 5.3 K/mm3 (4.4-11.0)
[2020-08-06 13:30] LABS: ALB/GLOB Ratio 0.9 RATIO (0.9-2.4); AST(SGOT) 31 U/L (15-37); Alanine Aminotransfer ALT/SGPT 38 U/L (16-61); Albumin, Serum 3.7 g/dL (3.2-5.0); Alkaline Phosphatase 68 U/L (45-117); Anion Gap 6 (5-15); BUN 20 mg/dL (7-18); BUN/Creat Ratio 19.2 RATIO (10-20); Calcium,Total 9.3 mg/dL (8.5-10.1); Chloride 101 mmol/L (98-107); Cholesterol 93 mg/dL (200); Creatinine, Serum 1.04 mg/dL (0.70-1.30); EST Glomerular Filtration Rate 79 mL/min (>60); Est Glom Filt Rate - Afr Amer 96 mL/min (>60); Globulin 3.9 g/dL (2.2-4.2); Glucose 223 mg/dL (74-106); High Density Lipoprotein 27 mg/dL; PSA,Total - Annual Screen 1.23 ng/mL (0.00-4.00); Potassium 4.1 mmol/L (3.5-5.1); Protein, Total 7.6 g/dL (6.4-8.2); Sodium Level 135 mmol/L (136-145); Thyroid Stim Hormone (TSH) 3.32 uIU/mL (0.358-3.74); Triglycerides 193 mg/dL; Very Low Density Lipoprotein 39 mg/dL (5-40)
== END ==
PROVIDERS: PCP Family Medicine; Referring Provider Family Medicine; Visit Provider Family Medicine
DX: I48.91 Unspecified atrial fibrillation (principal); E11.65 Type 2 diabetes mellitus with hyperglycemia; Z12.5 Encounter for screening for malignant neoplasm of prostate
CPT/HCPCS: 36415; 80053; 80061; 84153; 84443; 85027; G0103

== ENCOUNTER 2020-08-28 16:50 | Inpatient (IN) | payer BC, SELFPAY ==
[2020-05-10 08:11] VITALS: BMI 54.8
[2020-08-28] VITALS (9 sets, daily range): BP systolic 113–151; BP diastolic 67–84; PULSE 81–87; RESP 7–20; TEMP 36.6–38.3; O2SAT 95–100; BMI 54.2; BMI 56.4
--- NOTE | 2020-08-28 17:29 | EKG12_ITS ---
Test Reason : GEN. ILLNESS Blood Pressure : / mmHG Vent. Rate : 084 BPM Atrial Rate : 062 BPM P-R Int : 000 ms QRS Dur : 162 ms QT Int : 402 ms P-R-T Axes : 000 059 020 degrees QTc Int : 475 ms Atrial fibrillation Right bundle branch block Abnormal ECG Confirmed by CHRISTIANO GARCIA, SALLY ([id number]), assignment desk editor MEGHANN PERALTA ([id number]) on 08/30/2020 12:41:07 P M Referred By: PARISA Confirmed By:JOSE ALEJANDRO ALVARADO MD
--- NOTE | 2020-08-28 17:30 | EDS_ITS ---
HPI History of Present Illness Chief Complaint: General Illness Detail of Chief Complaint: Fever and chills Informant: patient and family Onset/Context/Timing Onset: Today Timing: Continuous Current Severity: Mild Maximum Severity: Mild Narrative Narrative: 55-year-old male history of diabetes and A. fib on Coumadin. Patient states he just felt poorly today. Had chills and a fever. [place] lightheaded. Was seen in his primary care physician's office and came to the ER for further evaluation. He states he had nausea but no vomiting no diarrhea no dysuria. No abdominal pain. No significant cough. He has had 2 different Covid test in the last 2 to 3 days both were negative. He denies any cough, chest pain or significant shortness of breath. He has chronic cellulitis of his lower extremities is no worse or different. Prior similar symptoms: Yes Recent Illness/Hospitalization: No PFSH PFS Medical History (Updated 08/28/20 @ 19:[address] Adalberto Burton MD) Asthma Cellulitis of right leg Chronic atrial fibrillation COPD (chronic obstructive pulmonary disease) COPD exacerbation Essential (primary) hypertension Exogenous obesity Hematuria Hypercholesteremia Mild intermittent asthma Morbid obesity due to excess calories Obstructive sleep apnea [place] (obstructive sleep apnea) Right bundle branch block (RBBB) Sciatica Seasonal allergies Secondary pulmonary arterial hypertension Shortness of breath Super-super obese Super-super obese Swelling of lower limb Type 2 diabetes mellitus Venous hypertension, chronic Venous hypertension, chronic, with ulcer and inflammation Venous insufficiency Venous ulcer of right leg Home Medications atorvastatin 10 mg PO QHS 01/29/15 [History Last Taken 06/16/15] lisinopril 5 mg PO DAILY 01/29/15 [History Last Taken 06/03/19 09:00] betaxolol 10 mg PO DAILY 03/03/17 [History Last Taken 06/03/19 09:00] metformin 1,000 mg PO BID 03/03/17 [History Last Taken 06/03/19 09:00] diltiazem HCl 120 mg capsule,extended release 24 hr 360 mg PO DAILY cap 06/07/18 [History Last Taken 06/03/19 09:00] meclizine 25 mg tablet 25 mg PO DAILY PRN 8 Days #32 tab 08/08/18 [History Last Taken Unknown] vitamin B complex 1 tab PO DAILY 08/08/18 [History Last Taken 06/03/19 09:00] warfarin 10 mg tablet 11 mg PO 1800 08/08/18 [History Last Taken Unknown] albuterol sulfate 90 mcg/actuation aerosol inhaler 2 puff INHALATION Q4H PRN g 12/19/18 [History Last Taken 06/03/19 19:30] Triamcinolone 0.1% Cream [Kenalog] 1 applic TOPICAL BID PRN 03/14/19 [History Last Taken Unknown] fluticasone propionate 2 spray NASAL DAILY PRN 03/14/19 [History Last Taken Unknown] insulin glargine U-300 conc 60 units SQ BID 03/14/19 [History Last Taken 06/02/19 22:30] gabapentin 300 mg PO BIDCM 06/04/19 [History Last Taken 06/03/19 09:00] glimepiride 4 mg PO DAILY 06/04/19 [History Last Taken 06/03/19 09:00] cetirizine 10 mg capsule 10 mg PO HS #30 cap 05/07/20 [Rx Last Taken Unknown] fluticasone fur. 200 mcg-umeclid 62.5 mcg-vilant 25 mcg inhalat.powder 1 inh INHALATION DAILY #60 ea 05/07/20 [Rx Last Taken Unknown] furosemide 40 mg tablet 80 mg PO BREAKFAST tab 05/07/20 [History Last Taken Unknown] magnesium 30 mg tablet 300 mg PO DAILY tab 05/07/20 [History Last Taken Unknown] montelukast 10 mg tablet 10 mg PO DAILY 05/07/20 [History Last Taken Unknown] tamsulosin 0.4 mg capsule 0.4 mg PO DAILY cap 05/10/20 [History Last Taken Unknown] furosemide 40 mg PO QHS 08/28/20 [History Last Taken Unknown] Allergy/AdvReac Type Severity Reaction Status Date / Time adhesive tape Allergy Rash Verified 08/28/20 16:55 codeine Allergy rash Verified 08/28/20 16:55 levofloxacin [From Levaquin] Allergy hives and Verified 08/28/20 16:55 swelling oxycodone Allergy hives Verified 08/28/20 16:55 Family History Mother Breast cancer Father Prostate cancer Surgical History History of meatotomy of ureter Social History Smoking Status: Former smoker how long ago did patient quit smokin years alcohol intake: never substance use type: does not use caffeine: No ROS ROS ED ROS Narrative Patient states recently has been feeling fine. His blood sugars have been running elevated. Review of Systems ROS Unobtainable: Denies due to encephalopathy Constitutional Constitutional ED: Reports chills and fever(s) Eyes Eyes: Denies change in vision ENT ENT ED: Denies ear pain or sore throat Cardiovascular Cardiovascular: Denies chest pain Respiratory/Chest Respiratory/Chest: Denies cough, dyspnea or sputum Gastrointestinal Gastrointestinal: Reports nausea; Denies abdominal pain, diarrhea or vomiting Genitourinary Genitourinary ED: Denies dysuria or hematuria Musculoskeletal Musculoskeletal: Denies myalgias Integumentary Denies rash Neurologic Neurologic: Reports headache(s) Psychiatric Psychiatric: Denies depression Endocrine Endocrinology: Denies polyuria Allergic/Immunologic Allergic/Immunologic ED: Denies urticaria EXAM Physical Exam Narrative Exam Narrative: Middle-aged male no acute distress initial vital signs are stable afebrile we took a temperature ourselves orally and is 100.5. Patient does not look septic. And nontoxic. HEENT exam unremarkable. TMs normal. Posterior pharynx normal. No trouble swallowing or breathing. No stridor. Moist with membranes. Neck nontender. No meningismus. No lymphadenopathy. Lungs clear to auscultation bilaterally. Heart no murmur. Abdomen soft nontender normal bowel sounds no peritoneal signs. Obese. Moving all 4 extremities. Redness both lower extremities and chronic venous stasis changes. Patient states this is normal. Back nontender. No CVA tenderness. Yadi rologically is awake alert with no focal motor deficits. Const Vital Signs: 08/28/20 16:51 08/28/20 17:02 08/28/20 17:43 Temperature 98.3 F 98 F Temperature Source Temporal Temporal Pulse Rate 85 Respiratory Rate 7 L Respiratory Effort Normal Non-Labored Respiratory Pattern Normal Blood Pressure 113/72 Blood Pressure Mean 85 Pulse Ox 97 Oxygen Delivery Method Room Air 08/28/20 18:11 08/28/20 18:29 Temperature 98.2 F 100.9 F H Temperature Source Temporal Oral Pulse Rate 81 87 Respiratory Rate 18 17 Respiratory Effort Respiratory Pattern Blood Pressure 136/78 H 151/67 H Blood Pressure Mean 97 95 Pulse Ox 98 96 Oxygen Delivery Method Room Air Room Air HEENT Negative for trauma or tenderness Eyes PERRL and EOMs intact bilaterally Neck no lymphadenopathy, supple and no JVD General: Negative for tenderness Chest Wall inspection of chest normal Resp normal respiratory effort and clear to auscultation bilaterally Cardio regular rate and no murmurs GI normal to inspection, nondistended, normoactive bowel sounds, non-tender and non-distended Palpation: soft Back/Spine no CVA tenderness Neuro oriented x3 and CN's II-XII intact bilaterally Sensorium / Orientation: alert Motor Exam: strength 5/5 throughout Psych mental status grossly normal Skin no rashes or lesions noted MDM MDM MDM Narrative Medical decision making narrative: Middle-aged male history of diabetes and A. fib on Coumadin. With fever today. Exams benign. He will undergo a sepsis work-up. Initially I am not treating him with a significant fluids because he has a history of CHF and peripheral edema. He will receive p.o. Tylenol for his fever. Patient has a Levaquin allergy. I spoke to the hospitalist. He will be placed on Rocephin and Zithromax.. Received a liter normal saline. Lab Data Lab results narrative: Urinalysis negative. Patient is on Coumadin his INR is 2.2. White count is elevated 17.3. Hemoglobin eleven. No bands. Chest x-ray portable 1 view as opacities on the right upper lung that are consistent with a pneumonia. Interpreted by myself and also read similarly by the radiologist. Sodium 130. Normal gap and creatinine. Lactic acid elevated 2.7. Labs: Laboratory Results - last 24 hr 08/28/20 08/28/20 08/28/20 17:35 17:50 17:50 WBC 17.3 H RBC 4.18 L Hgb 11.1 L Hct 35.0 L MCV 83.7 MCH 26.6 L MCHC 31.7 L RDW Std Deviation 51.9 H RDW Coeff of Brina 17.3 H Plt Count 209 MPV 9.5 Immature Gran % (Auto) 0.600 Neut % (Auto) 89.8 H Lymph % (Auto) 2.8 L Potter % (Auto) 6.2 Eos % (Auto) 0.3 Baso % (Auto) 0.3 Absolute Neuts (auto) 15.5 H Absolute Lymphs (auto) 0.48 L Nucleated RBC % 0 Differential Comment SCANNED PT 23.8 H INR 2.2 APTT 39.3 H Sodium Potassium Chloride Carbon Dioxide Anion Gap BUN Creatinine Estim Creat Clear Calc Est GFR (MDRD) Af Amer Est GFR (MDRD) Non-Af BUN/Creatinine Ratio Glucose Lactic Acid Calcium Total Bilirubin AST ALT Alkaline Phosphatase Total Protein Albumin Globulin Albumin/Globulin Ratio Urine Color Yellow Urine Clarity Clear Urine pH 6.0 Ur Specific [place] 1.010 Urine Protein 100 H Urine Glucose (UA) Normal Urine Ketones Negative Urine Occult Blood 10 H Urine Nitrite Negative Urine Bilirubin Negative Urine Urobilinogen Normal Ur Leukocyte Esterase Negative Urine RBC 0-5 SEEN Urine WBC 0-5 SEEN Ur Squamous Epith Cells 0-5 SEEN Urine Bacteria 0 SEEN Urine Mucus 0 SEEN 08/28/20 08/28/20 17:50 17:50 WBC RBC Hgb Hct MCV MCH MCHC RDW Std Deviation RDW Coeff of Brina Plt Count MPV Immature Gran % (Auto) Neut % (Auto) Lymph % (Auto) Potter % (Auto) Eos % (Auto) Baso % (Auto) Absolute Neuts (auto) Absolute Lymphs (auto) Nucleated RBC % Differential Comment PT INR APTT Sodium 130 L Potassium 4.5 Chloride 94 L Carbon Dioxide 29.0 Anion Gap 7 BUN 19 H Creatinine 1.29 Estim Creat Clear Calc 71.85 Est GFR (MDRD) Af Amer 75 Est GFR (MDRD) Non-Af 62 BUN/Creatinine Ratio 14.7 Glucose 207 H Lactic Acid 2.7 H* Calcium 9.1 Total Bilirubin 1.00 AST 47 H ALT 47 Alkaline Phosphatase 65 Total Protein 7.7 Albumin 3.8 Globulin 3.9 Albumin/Globulin Ratio 1.0 Urine Color Urine Clarity Urine pH Ur Specific [place] Urine Protein Urine Glucose (UA) Urine Ketones Urine Occult Blood Urine Nitrite Urine Bilirubin Urine Urobilinogen Ur Leukocyte Esterase Urine RBC Urine WBC Ur Squamous Epith Cells Urine Bacteria Urine Mucus Radiography Chest X-Ray - ED: 1 View, Read by ED Physician, Heart, Mediastinum, Bony Structures, Chronic Changes and Right Infiltrate Diagnostic Testing: Radiology Impression Chest X-Ray 08/28/20 18:12 IMPRESSION: Normal lung volumes. Ill-defined pulmonary opacities of the right upper lobe in right lower lobe consistent with multifocal pneumonia. Electronically Signed: Karl Huerta MD at 18:51 EDT , Service support , EKG Initial EKG: Attestation: I personally reviewed and interpreted this EKG as follows: Interpretation: Atrial Fibrillation Comments: A. fib with a history of A. fib with a right bundle branch block and a rate of eighty-four. No acute signs of RI or ischemia. Discharge Plan Triage Chief Complaint: General Illness ED Provider: Adalberto Burton Dx/Rx/DC Orders Clinical Impression: Pneumonia, Sepsis Prescriptions: No Action diltiazem HCl 120 mg capsule,extended release 24hr 360 mg PO DAILY RF: 0 meclizine 25 mg tablet 25 mg PO DAILY PRN (Reason: Vertigo) 8 Days Qty: 32 RF: 0 warfarin 10 mg tablet 11 mg PO 1800 RF: 0 vitamin B complex [B Complex-Vitamin B12] tablet 1 tab PO DAILY RF: 0 furosemide [Lasix] 40 mg tablet 80 mg PO BREAKFAST RF: 0 albuterol sulfate [ProAir HFA] 90 mcg/actuation HFA aerosol inhaler 2 puff INHALATION Q4H PRN (Reason: shortness of breath or wheezing) RF: 0 magnesium 30 mg tablet 300 mg PO DAILY RF: 0 montelukast 10 mg tablet 10 mg PO DAILY RF: 0 Trelegy Ellipta 200-62.5-25 mcg blister with device 1 inh INHALATION DAILY Qty: 60 RF: 6 tamsulosin 0.4 mg capsule 0.4 mg PO DAILY RF: 0 atorvastatin 10 MG tablet 10 mg PO QHS RF: 0 lisinopril 5 MG tablet 5 mg PO DAILY RF: 0 metformin 1,000 MG tablet 1,000 mg PO BID RF: 0 betaxolol 10 MG tablet 10 mg PO DAILY RF: 0 fluticasone propionate 1 SPRAY spray,suspension 2 spray NASAL DAILY PRN (Reason: Allergies) RF: 0 insulin glargine U-300 conc 300 UNIT/ML insulin pen 60 units SQ BID RF: 0 Triamcinolone 0.1% Cream [Kenalog] 1 APPLIC Tube 1 applic topical BID PRN (Reason: Rash/Topical Irritation) RF: 0 glimepiride 4 MG tablet 4 mg PO DAILY RF: 0 gabapentin 300 MG capsule 300 mg PO BIDCM RF: 0 furosemide 40 mg tablet 40 mg PO QHS RF: 0 cetirizine 10 mg capsule 10 mg PO HS Qty: 30 RF: 5 Primary Care Provider: Al Mondragon Referrals: Al Mondragon MD [Primary Care Provider] -
[2020-08-28] MEDS: Acetaminophen 500 MG Tablet 1000 MG PO (17:40)
[2020-08-28 17:41] LABS: Bacteria 0 SEEN /hpf (None Seen); Mucous, Urine 0 SEEN /hpf (<or=2+)
[2020-08-28 17:43] LABS: Color, Urine Yellow (Yellow); Glucose, Dipstick Normal (Normal); Ketone-Dipstick Negative (Negative); Leukocyte Esterase-Dipstick Negative /ul (Negative); Nitrite-Dipstick Negative (Negative); Occult Blood-Urine 10 /ul (Negative); Protein-Dipstick 100 mg/dl (Negative); Urine Bilirubin Dipstick Negative (Negative); Urine Clarity Clear (Clear); Urine Urobilinogen Normal (Normal)
[2020-08-28 18:03] LABS: Squamous Epithelial Cells - UA 0-5 SEEN /hpf (0-5)
[2020-08-28 18:04] LABS: Red Blood Cells-Urine 0-5 SEEN /hpf (0-5); White Blood Cells 0-5 SEEN /hpf (0-5)
[2020-08-28 18:07] LABS: Absolute Lymphocyte Count 0.48 X10^3/uL (0.83-4.51); Absolute Neutrophil Count 15.5 X10^3/uL (2.0-7.7); Basophil# 0.05 X10^3/uL; Basophil% 0.3 % (0-1); Eosinophil# 0.05 X10^3/uL; Eosinophils% 0.3 % (0-5); Hemoglobin 11.1 g/dL (13.0-16.5); Lymphocyte # 0.48 X10^3/ul (0.83-4.51); Lymphocyte % 2.8 % (19-41); Mean Corp Hgb Conc 31.7 g/dL (32-36); Mean Corpuscular Hgb 26.6 pg (27.0-32.0); Mean Corpuscular Volume 83.7 fL (80-94); Mean Platelet Vol. 9.5 fl (6.2-12.0); Monocyte# 1.07 X10^3/uL; Monocyte% 6.2 % (0-10); NRBC Flagged by Analyzer 0 % (0-5); Neutrophil # 15.52 X10^3/uL (2.7-7.7); Neutrophil % 89.8 % (47-70); POSITIVE DIFFERENTIAL YES; Platelet Count 209 K/mm3 (150-450); RBC Distribution Width CV 17.3 % (11.6-14.6); RBC Distribution Width SD 51.9 fl (35.1-43.9); Red Blood Count 4.18 M/mm3 (4.6-6.2); White Blood Count 17.3 K/mm3 (4.4-11.0)
[2020-08-28 18:09] LABS: Differential Indicated SCAN CRITERIA MET
--- NOTE | 2020-08-28 18:12 | RAD_ITS ---
STUDY: X-RAY CHEST REASON FOR EXAM: Male, 55 years old. fever TECHNIQUE: Single AP portable view of the chest. COMPARISON: 06/27/2019. FINDINGS: Normal lung volumes. Ill-defined pulmonary opacities of the right upper lobe in right lower lobe consistent with multifocal pneumonia. Left lung is clear. No effusions are seen. There is no demonstrated pleural abnormality. There is borderline cardiomegaly. Normal mediastinum and sky. Normal visualized pulmonary arteries. Normal visualized aortic arch and descending thoracic aorta. Normal visualized thoracic spine. Normal visualized ribs, clavicles, and shoulders. There is no demonstrated abnormality of the visualized soft tissue structures of the upper abdomen. RAD/Chest 1 View (Portable) IMPRESSION: Normal lung volumes. Ill-defined pulmonary opacities of the right upper lobe in right lower lobe consistent with multifocal pneumonia. Electronically Signed: Karl Huerta MD at 18:51 EDT , Service support ,
[2020-08-28 18:17] LABS: International Normalized Ratio 2.2; Prothrombin Time (Protime)PT. 23.8 SECONDS (11.7-14.9)
[2020-08-28 18:18] LABS: Partial Thromboplast Time 39.3 Seconds (24.1-36.2)
[2020-08-28 18:34] LABS: AST(SGOT) 47 U/L (15-37); Alanine Aminotransfer ALT/SGPT 47 U/L (16-61); Albumin, Serum 3.8 g/dL (3.2-5.0); Alkaline Phosphatase 65 U/L (45-117); Anion Gap 7 (5-15); BUN 19 mg/dL (7-18); BUN/Creat Ratio 14.7 RATIO (10-20); Calcium,Total 9.1 mg/dL (8.5-10.1); Chloride 94 mmol/L (98-107); Creatinine, Serum 1.29 mg/dL (0.70-1.30); EST Glomerular Filtration Rate 62 mL/min (>60); Est Glom Filt Rate - Afr Amer 75 mL/min (>60); Estimated Creatinine Clearance 71.85 ml/min; Globulin 3.9 g/dL (2.2-4.2); Glucose 207 mg/dL (74-106); Potassium 4.5 mmol/L (3.5-5.1); Protein, Total 7.7 g/dL (6.4-8.2); Sodium Level 130 mmol/L (136-145)
[2020-08-28 18:35] LABS: Differential Comment SCANNED
[2020-08-28 18:36] LABS: Lactic Acid 2.7 mmol/L (0.4-1.9)
--- NOTE | 2020-08-28 18:53 | HP.PCM.HOS_ITS ---
HPI - General General Date of Admission: 08/28/20 HPI Narrative MARIA DE JESUS ROSARIO, is a 55 M with a PMH as outlined who presents with a complaint of generalised malaise, with associated chills and fever. Fever was around 103- 104F. He had associated nausea and vomiting but no diarrhea and denies any urinary symptoms. He has chronic LE cellulitis. Patient also said he had 2 Covid test done on outpatient basis which were negative. Review of symptoms otherwise negative. Vitals in the ED showed blood pressure of 151/67, pulse rate of 87, respiratory rate of 17 and temperature of 100.9 Fahrenheit and he was saturating at 96% on room air. CBC showed hemoglobin of 11.1 and WBC of 17.3 and platelets of 209. INR was 2.2, patient is on Coumadin. Chemistry shows sodium of 130 with bicarb of 29. Lactic acid was 2.7. Urinalysis was negative for UTI. Covid rapid antigen was negative. CXR showed ill defined pulmonary opacities of the right upper lobes and right lower lobe consistent with multifocal pneumonia, left lung is clear. He is being admitted to be managed for community acquired pneumonia [facility] Medical History (Updated 08/28/20 @ 19:[address] Leatha Mathur MD) Asthma Cellulitis of right leg Chronic atrial fibrillation COPD (chronic obstructive pulmonary disease) COPD exacerbation Diabetes Essential (primary) hypertension Exogenous obesity Hematuria History of abdominal paracentesis Hypercholesteremia Lymphedema Mild intermittent asthma Morbid obesity due to excess calories Neuropathy Obstructive sleep apnea MILAGRO (obstructive sleep apnea) Right bundle branch block (RBBB) Sciatica Seasonal allergies Secondary pulmonary arterial hypertension Shortness of breath Super-super obese Super-super obese Swelling of lower limb Type 2 diabetes mellitus Venous hypertension, chronic Venous hypertension, chronic, with ulcer and inflammation Venous insufficiency Venous ulcer of right leg Home Medications atorvastatin 10 mg PO QHS 01/29/15 [History Last Taken 08/27/20] lisinopril 5 mg PO DAILY 01/29/15 [History Last Taken 08/28/20] betaxolol 10 mg PO DAILY 03/03/17 [History Last Taken 08/28/20] metformin 1,000 mg PO BID 03/03/17 [History Last Taken 08/28/20] meclizine 25 mg tablet 25 mg PO DAILY PRN 8 Days #32 tab 08/08/18 [History Last Taken Unknown] vitamin B complex 1 tab PO DAILY 08/08/18 [History Last Taken 08/28/20] albuterol sulfate 90 mcg/actuation aerosol inhaler 2 puff INHALATION Q4H PRN g 12/19/18 [History Last Taken 06/03/19 19:30] Triamcinolone 0.1% Cream [Kenalog] 1 applic TOPICAL BID PRN 03/14/19 [History Last Taken Unknown] fluticasone propionate 2 spray NASAL DAILY PRN 03/14/19 [History Last Taken Unknown] insulin glargine U-300 conc 60 units SQ BID 03/14/19 [History Last Taken 08/28/20] gabapentin 300 mg PO BIDCM 06/04/19 [History Last Taken 06/03/19 09:00] glimepiride 4 mg PO DAILY 06/04/19 [History Last Taken 08/28/20] furosemide 40 mg tablet 80 mg PO BREAKFAST tab 05/07/20 [History Last Taken 08/28/20] montelukast 10 mg tablet 10 mg PO QHS 05/07/20 [History Last Taken 08/27/20] cetirizine 10 mg PO HS 08/28/20 [History Last Taken 08/27/20] diltiazem HCl 360 mg PO DAILY 08/28/20 [History Last Taken 08/28/20] qrakhosaclo-yfavcfcdb-sylcsbim [Trelegy Ellipta] 1 inh INHALATION DAILY 08/28/20 [History Last Taken 08/28/20] furosemide 40 mg PO QHS 08/28/20 [History Last Taken 08/27/20] ljhmtceu-lyq-EL-lycopen-lutein [Centrum Silver Men] 1 tab PO DAILY 08/28/20 [History Last Taken 08/28/20] omega-3 fatty acids [Fish Oil] 1,000 mg PO DAILY 08/28/20 [History Last Taken 08/28/20] warfarin 11 mg PO DINNER 08/28/20 [History Last Taken 08/27/20] Allergy/AdvReac Type Severity Reaction Status Date / Time adhesive tape Allergy Rash Verified 08/28/20 16:55 codeine Allergy rash Verified 08/28/20 16:55 levofloxacin [From Levaquin] Allergy hives and Verified 08/28/20 16:55 swelling oxycodone Allergy hives Verified 08/28/20 16:55 Family History Mother Breast cancer Father Prostate cancer Surgical History History of meatotomy of ureter Social History Smoking Status: Former smoker how long ago did patient quit smokin years alcohol intake: never substance use type: does not use caffeine: No ROS Constitutional Constitutional: Reports chills, fatigue, fever(s) and malaise; Denies anorexia, change in weight or weakness ENT HEENT: Denies dysphagia, ear pain, nasal discharge or sore throat Cardiovascular Cardiovascular: Denies chest pain, dyspnea on exertion, edema, lightheadedness, orthopnea, palpitations, paroxysmal nocturnal dyspnea or rapid heart rate Respiratory/Chest Respiratory/Chest: Denies cough, dyspnea, productive cough, shortness of breath at rest or shortness of breath with exertion Gastrointestinal Gastrointestinal: Denies abdominal pain, coffee ground emesis, diarrhea, dyspepsia, loose stools, nausea or vomiting Genitourinary Genitourinary: Denies burning urination, difficulty urinating or dysuria Musculoskeletal Musculoskeletal: Denies arthralgias, back pain or joint pain Neurologic Neurologic: Denies confusion, dizziness, focal weakness or seizures Psychiatric Psychiatric: Denies anxiety Endocrine Endocrinology: Denies change in body appearance Hematologic/Lymphatic Hematologic/Lymphatic: Denies anemia Allergic/Immunologic Allergic/Immunologic: Denies asthma Vital Signs Vital Signs Vital Signs: 08/28/20 16:51 08/28/20 17:02 08/28/20 17:43 Temperature 98.3 F 98 F Temperature Source Temporal Temporal Pulse Rate 85 Respiratory Rate 7 L Respiratory Effort Normal Non-Labored Respiratory Pattern Normal Blood Pressure 113/72 Blood Pressure Mean 85 Pulse Ox 97 Oxygen Delivery Method Room Air 08/28/20 18:11 08/28/20 18:29 Temperature 98.2 F 100.9 F H Temperature Source Temporal Oral Pulse Rate 81 87 Respiratory Rate 18 17 Respiratory Effort Respiratory Pattern Blood Pressure 136/78 H 151/67 H Blood Pressure Mean 97 95 Pulse Ox 98 96 Oxygen Delivery Method Room Air Room Air Physical Exam Const alert, oriented x3 and no apparent distress Constitutional Narrative: super morbid obesity General Appearance: cooperative HEENT normocephalic, head/scalp atraumatic, hearing grossly normal bilaterally and moist oral mucous membranes Eyes PERRL, EOMs intact bilaterally and conjunctivae normal Neck no lymphadenopathy, supple and no JVD Resp normal respiratory effort, no retractions, no use of accessory muscles and clear to auscultation bilaterally Cardio regular rate, regular rhythm, S1 normal heart sound, S2 normal heart sound and no murmurs GI normal to inspection, nondistended, normoactive bowel sounds, soft to palpation, non-tender, non-distended and hepatosplenomegaly GI Narrative: very obese Extremity normal to inspection and full ROM Extremity Narrative: has bilateral LE chronic lymphedema Peripheral Pulses: Yes pulses 2+ throughout Skin no rashes or lesions noted Neuro oriented x3 Sensorium / Orientation: awake and alert Psych affect normal Lab / Micro Data Result Diagrams: 08/28/20 17:50 08/28/20 17:50 Labs: Laboratory Results - last 24 hr 08/28/20 08/28/20 08/28/20 17:35 17:50 17:50 WBC 17.3 H RBC 4.18 L Hgb 11.1 L Hct 35.0 L MCV 83.7 MCH 26.6 L MCHC 31.7 L RDW Std Deviation 51.9 H RDW Coeff of Brina 17.3 H Plt Count 209 MPV 9.5 Immature Gran % (Auto) 0.600 Neut % (Auto) 89.8 H Lymph % (Auto) 2.8 L Slope % (Auto) 6.2 Eos % (Auto) 0.3 Baso % (Auto) 0.3 Absolute Neuts (auto) 15.5 H Absolute Lymphs (auto) 0.48 L Nucleated RBC % 0 Differential Comment SCANNED PT 23.8 H INR 2.2 APTT 39.3 H Sodium Potassium Chloride Carbon Dioxide Anion Gap BUN Creatinine Estim Creat Clear Calc Est GFR (MDRD) Af Amer Est GFR (MDRD) Non-Af BUN/Creatinine Ratio Glucose Lactic Acid Calcium Total Bilirubin AST ALT Alkaline Phosphatase Total Protein Albumin Globulin Albumin/Globulin Ratio Urine Color Yellow Urine Clarity Clear Urine pH 6.0 Ur Specific [place] 1.010 Urine Protein 100 H Urine Glucose (UA) Normal Urine Ketones Negative Urine Occult Blood 10 H Urine Nitrite Negative Urine Bilirubin Negative Urine Urobilinogen Normal Ur Leukocyte Esterase Negative Urine RBC 0-5 SEEN Urine WBC 0-5 SEEN Ur Squamous Epith Cells 0-5 SEEN Urine Bacteria 0 SEEN Urine Mucus 0 SEEN 08/28/20 08/28/20 17:50 17:50 WBC RBC Hgb Hct MCV MCH MCHC RDW Std Deviation RDW Coeff of Brina Plt Count MPV Immature Gran % (Auto) Neut % (Auto) Lymph % (Auto) Slope % (Auto) Eos % (Auto) Baso % (Auto) Absolute Neuts (auto) Absolute Lymphs (auto) Nucleated RBC % Differential Comment PT INR APTT Sodium 130 L Potassium 4.5 Chloride 94 L Carbon Dioxide 29.0 Anion Gap 7 BUN 19 H Creatinine 1.29 Estim Creat Clear Calc 71.85 Est GFR (MDRD) Af Amer 75 Est GFR (MDRD) Non-Af 62 BUN/Creatinine Ratio 14.7 Glucose 207 H Lactic Acid 2.7 H* Calcium 9.1 Total Bilirubin 1.00 AST 47 H ALT 47 Alkaline Phosphatase 65 Total Protein 7.7 Albumin 3.8 Globulin 3.9 Albumin/Globulin Ratio 1.0 Urine Color Urine Clarity Urine pH Ur Specific [place] Urine Protein Urine Glucose (UA) Urine Ketones Urine Occult Blood Urine Nitrite Urine Bilirubin Urine Urobilinogen Ur Leukocyte Esterase Urine RBC Urine WBC Ur Squamous Epith Cells Urine Bacteria Urine Mucus Micro: Microbiology 08/28/20 17:57 SARS-CoV-2 Antigen (Rapid) - Final Interface Orders Radiology Impression Chest X-Ray 08/28/20 18:12 IMPRESSION: Normal lung volumes. Ill-defined pulmonary opacities of the right upper lobe in right lower lobe consistent with multifocal pneumonia. Electronically Signed: Karl Huerta MD at 18:51 EDT , Service support , Assessment & Plan Assessment/Plan (1) Pneumonia: QUALIFIERS: Pneumonia type: due to unspecified organism Late rality: right Lung location: lower lobe of lung Qualified Code(s): J18.9 - Pneumonia, unspecified organism PLAN: #Severe sepsis due to Community-acquired pneumonia * Admit to [facility] * Patient WBC is elevated at 17.9 and lactic acid was 2.7, and was also febrile and chest x-ray showed ill-defined pulmonary opacities of the right upper and right lower lobe consistent with multifocal pneumonia * Started on IV ceftriaxone and azithromycin * Check for urine strep and Legionella antigens. Patient is not coughing so unable to get sputum culture * Get blood cultures. * Breathing treatments of bronchodilators. * Titrate oxygen to maintain saturation above 90%. * #Lactic acidosis: Lactic acid is 2.7. This likely due to sepsis. Will check BMP and if is not elevated, will hydrate gently with IV fluids. #Type 2 diabetes mellitus: * On glimepiride and Lantus 60 units twice daily as well as Metformin. * Insulin sliding scale. * Accuchecks AC at bedtime. #COPD and asthma: Not in exacerbation. Continue breathing treatments with bronchodilators. On montelukast #Obstructive sleep apnea: On CPAP nightly #Chronic bilateral lower extremity lymphedema: Follows up at the lymphedema clinic in [place]. #History of chronic atrial fibrillation: On Cardizem #Hyperlipidemia: Continue statin #Heart failure with preserved ejection fraction: Not in exacerbation. Continue home dose of Lasix. chevck BNP #Super morbid obesity: Complicates recovery, management and expected prognosis DVT prophylaxis:on coumadin. INR is 2.2 Visit Charges Inpatient E&M: 29060 Init Hosp L3
[2020-08-28] MEDS: 0.9% Normal Saline 1,000 ML 999 ML IV (19:11)
[2020-08-28 20:35] LABS: Probe Check PASS; Specimen Processing Control PASS
[2020-08-28 21:56] LABS: Bedside Glucose 142 mg/dL (70-110)
[2020-08-28 21:59] LABS: Reflex Lactate? Y
[2020-08-28] MEDS: Montelukast 10 MG Tablet PO (22:06)
[2020-08-28] MEDS: Furosemide 40 MG Tablet PO (22:06)
[2020-08-28] MEDS: Atorvastatin Calcium 10 MG Tablet PO (22:06)
[2020-08-28] MEDS: Gabapentin 300 MG Capsule PO (22:06)
[2020-08-28] MEDS: Loratadine 10 MG Tablet PO (22:06)
[2020-08-29] VITALS (11 sets, daily range): BP systolic 119–148; BP diastolic 49–72; PULSE 72–94; RESP 16–20; TEMP 36.9–38.3; O2SAT 95–98
[2020-08-29] MEDS: Acetaminophen 325 MG Tablet 650 MG PO ×3 (02:26→21:49)
[2020-08-29] MEDS: Insulin Lispro 100 UNIT/ML INSULN.PEN SC ×4 (05:14→21:33)
[2020-08-29 05:31] LABS: Bedside Glucose 172 mg/dL (70-110)
[2020-08-29 05:37] LABS: Absolute Lymphocyte Count 0.71 X10^3/uL (0.83-4.51); Absolute Neutrophil Count 9.8 X10^3/uL (2.0-7.7); Basophil# 0.05 X10^3/uL; Basophil% 0.4 % (0-1); Eosinophil# 0.03 X10^3/uL; Eosinophils% 0.3 % (0-5); Hematocrit 32.2 % (40-54); Hemoglobin 10.3 g/dL (13.0-16.5); Lymphocyte # 0.71 X10^3/ul (0.83-4.51); Lymphocyte % 6.2 % (19-41); Mean Corpuscular Hgb 26.8 pg (27.0-32.0); Mean Corpuscular Volume 83.6 fL (80-94); Monocyte# 0.85 X10^3/uL; Monocyte% 7.4 % (0-10); NRBC Flagged by Analyzer 0 % (0-5); Neutrophil # 9.77 X10^3/uL (2.7-7.7); Neutrophil % 85.2 % (47-70); Platelet Count 195 K/mm3 (150-450); RBC Distribution Width CV 17.3 % (11.6-14.6); RBC Distribution Width SD 52.2 fl (35.1-43.9); Red Blood Count 3.85 M/mm3 (4.6-6.2); White Blood Count 11.5 K/mm3 (4.4-11.0)
[2020-08-29 06:09] LABS: Anion Gap 8 (5-15); BUN 19 mg/dL (7-18); Calcium,Total 8.7 mg/dL (8.5-10.1); Chloride 98 mmol/L (98-107); Creatinine, Serum 1.19 mg/dL (0.70-1.30); EST Glomerular Filtration Rate 68 mL/min (>60); Est Glom Filt Rate - Afr Amer 82 mL/min (>60); Estimated Creatinine Clearance 77.89 ml/min; Glucose 154 mg/dL (74-106); Potassium 3.3 mmol/L (3.5-5.1); Sodium Level 132 mmol/L (136-145)
[2020-08-29] MEDS: Budesonide Respules 0.5 MG/2 ML AMPUL.NEB. INHALATION ×2 (07:06→19:21)
[2020-08-29] MEDS: Ipratropium/Albuterol Sulfate 3 ML AMPUL.NEB INHALATION ×3 (07:06→19:21)
[2020-08-29] MEDS: Furosemide 80 MG Tablet PO (08:58)
[2020-08-29] MEDS: Multivitamins,Ther W-Minerals Tablet 1 TABLET PO (08:58)
[2020-08-29] MEDS: Vitamin B Comp W-C Capsule 1 CAP PO (08:58)
[2020-08-29] MEDS: Glimepiride 4 MG Tablet PO (08:59)
[2020-08-29] MEDS: dilTIAZem CD 180 MG Capsule 360 MG PO (08:59)
[2020-08-29] MEDS: Lisinopril 5 MG Tablet PO (08:59)
[2020-08-29] MEDS: Gabapentin 300 MG Capsule PO ×2 (09:06→17:29)
--- NOTE | 2020-08-29 10:10 | CASEMGMT ---
[facility] [place] Assessment: Face to Face with pt for initial transition planning/care coordination assessment. RN BEENA introduced self and role at [facility], pt voices understanding and consents to assessment. Pt is A/O x4 and answers all questions appropriately at this time. Pt lying in bed with bipap on in no distress. Care providers, pharmacy, and demographics verified/updated. Admitting Dx: sepsis d/t CAP PCP: Giancarlo Specialists: Han, cardio; stephanie Kumar Preferred Pharmacy: [facility] Insurance: [place] Prescription Benefit: yes LW/HPOA: Pt does not have a LW/DPOA. LNOK: Jeanette Ruiz, sister in law; Sierra Short, mother Living Arrangements: Pt states he lives in a basement apartment of a two story house with two steps to enter with his grandmother, cousin and cousin's son. Pt states he is I in ADL's and denies concerns at home. Transportation: Pt drives self and denies concerns with transportation. DME/HHC/SNF: Pt has BIPAP and a walker at home. Denies need for further DME. Pt has not had prior HHC or SNF stay. 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 Pt states no concerns with going home at time of dc. Pt states no further concerns/needs. CM to follow. Advised pt to ask CM if any further question/concerns/needs arise, voices understanding. Pt Goal: Home Plan: Home with family support
--- NOTE | 2020-08-29 11:09 | PN.HOSP_ITS ---
Documented by User: Gladys Hurst NP, ALL SOURCE INTELLIGENCE ANALYST-C 08/29/20 11:21 Subjective Subjective Patient seen and examined. Reports improvement in shortness of breath. Continues to have fever. Denies productive cough, states he typically only has a cough after breathing treatments. Complains of constipation and requesting melatonin at bedtime. Objective Data Objective Data Vital Signs: Vital Signs Temp Pulse Resp BP Pulse Ox 99.3 F H 89 16 144/56 H 98 08/29/20 08:50 08/29/20 08:50 08/29/20 08:50 08/29/20 08:50 08/29/20 08:50 Oxygen Delivery Method Room Air Weight: 416 lb 10.778 oz Body Mass Index (BMI) 56.4 Intake & Output: Intake and Output for Last 24 Hours 08/27/20 08/28/20 08/29/20 23:59 23:59 23:59 Intake Total 1305 / 1305 480 / 480 Output Total 200 / 200 Balance 1305 / 1305 280 / 280 Lab / Micro Data Result Diagrams: 08/29/20 05:06 08/29/20 05:06 Labs: Laboratory Results - last 24 hr 08/28/20 08/28/20 08/28/20 17:35 17:50 17:50 WBC 17.3 H RBC 4.18 L Hgb 11.1 L Hct 35.0 L MCV 83.7 MCH 26.6 L MCHC 31.7 L RDW Std Deviation 51.9 H RDW Coeff of Brina 17.3 H Plt Count 209 MPV 9.5 Immature Gran % (Auto) 0.600 Neut % (Auto) 89.8 H Lymph % (Auto) 2.8 L [place] % (Auto) 6.2 Eos % (Auto) 0.3 Baso % (Auto) 0.3 Absolute Neuts (auto) 15.5 H Absolute Lymphs (auto) 0.48 L Nucleated RBC % 0 Differential Comment SCANNED PT 23.8 H INR 2.2 APTT 39.3 H Sodium Potassium Chloride Carbon Dioxide Anion Gap BUN Creatinine Estim Creat Clear Calc Est GFR (MDRD) Af Amer Est GFR (MDRD) Non-Af BUN/Creatinine Ratio Glucose Lactic Acid Calcium Total Bilirubin AST ALT Alkaline Phosphatase Total Protein Albumin Globulin Albumin/Globulin Ratio Urine Color Yellow Urine Clarity Clear Urine pH 6.0 Ur Specific [place] 1.010 Urine Protein 100 H Urine Glucose (UA) Normal Urine Ketones Negative Urine Occult Blood 10 H Urine Nitrite Negative Urine Bilirubin Negative Urine Urobilinogen Normal Ur Leukocyte Esterase Negative Urine RBC 0-5 SEEN Urine WBC 0-5 SEEN Ur Squamous Epith Cells 0-5 SEEN Urine Bacteria 0 SEEN Urine Mucus 0 SEEN COVID-19 (ANTWAN) POC Glucose 08/28/20 08/28/20 08/28/20 17:50 17:50 19:18 WBC RBC Hgb Hct MCV MCH MCHC RDW Std Deviation RDW Coeff of Brina Plt Count MPV Immature Gran % (Auto) Neut % (Auto) Lymph % (Auto) Union % (Auto) Eos % (Auto) Baso % (Auto) Absolute Neuts (auto) Absolute Lymphs (auto) Nucleated RBC % Differential Comment PT INR APTT Sodium 130 L Potassium 4.5 Chloride 94 L Carbon Dioxide 29.0 Anion Gap 7 BUN 19 H Creatinine 1.29 Estim Creat Clear Calc 71.85 Est GFR (MDRD) Af Amer 75 Est GFR (MDRD) Non-Af 62 BUN/Creatinine Ratio 14.7 Glucose 207 H Lactic Acid 2.7 H* Calcium 9.1 Total Bilirubin 1.00 AST 47 H ALT 47 Alkaline Phosphatase 65 Total Protein 7.7 Albumin 3.8 Globulin 3.9 Albumin/Globulin Ratio 1.0 Urine Color Urine Clarity Urine pH Ur Specific [place] Urine Protein Urine Glucose (UA) Urine Ketones Urine Occult Blood Urine Nitrite Urine Bilirubin Urine Urobilinogen Ur Leukocyte Esterase Urine RBC Urine WBC Ur Squamous Epith Cells Urine Bacteria Urine Mucus COVID-19 (ANTWAN) Not Detected POC Glucose 08/28/20 08/28/20 08/29/20 21:45 22:47 05:06 WBC 11.5 H RBC 3.85 L Hgb 10.3 L Hct 32.2 L MCV 83.6 MCH 26.8 L MCHC 32.0 RDW Std Deviation 52.2 H RDW Coeff of Brina 17.3 H Plt Count 195 MPV 10.0 Immature Gran % (Auto) 0.500 Neut % (Auto) 85.2 H Lymph % (Auto) 6.2 L [place] % (Auto) 7.4 Eos % (Auto) 0.3 Baso % (Auto) 0.4 Absolute Neuts (auto) 9.8 H Absolute Lymphs (auto) 0.71 L Nucleated RBC % 0 Differential Comment PT INR APTT Sodium Potassium Chloride Carbon Dioxide Anion Gap BUN Creatinine Estim Creat Clear Calc Est GFR (MDRD) Af Amer Est GFR (MDRD) Non-Af BUN/Creatinine Ratio Glucose Lactic Acid 2.0 Calcium Total Bilirubin AST ALT Alkaline Phosphatase Total Protein Albumin Globulin Albumin/Globulin Ratio Urine Color Urine Clarity Urine pH Ur Specific [place] Urine Protein Urine Glucose (UA) Urine Ketones Urine Occult Blood Urine Nitrite Urine Bilirubin Urine Urobilinogen Ur Leukocyte Esterase Urine RBC Urine WBC Ur Squamous Epith Cells Urine Bacteria Urine Mucus COVID-19 (ANTWAN) POC Glucose 142 H 08/29/20 08/29/20 05:06 05:11 WBC RBC Hgb Hct MCV MCH MCHC RDW Std Deviation RDW Coeff of Brina Plt Count MPV Immature Gran % (Auto) Neut % (Auto) Lymph % (Auto) Union % (Auto) Eos % (Auto) Baso % (Auto) Absolute Neuts (auto) Absolute Lymphs (auto) Nucleated RBC % Differential Comment PT INR APTT Sodium 132 L Potassium 3.3 L Chloride 98 Carbon Dioxide 26.0 Anion Gap 8 BUN 19 H Creatinine 1.19 Estim Creat Clear Calc 77.89 Est GFR (MDRD) Af Amer 82 Est GFR (MDRD) Non-Af 68 BUN/Creatinine Ratio 16.0 Glucose 154 H Lactic Acid Calcium 8.7 Total Bilirubin AST ALT Alkaline Phosphatase Total Protein Albumin Globulin Albumin/Globulin Ratio Urine Color Urine Clarity Urine pH Ur Specific [place] Urine Protein Urine Glucose (UA) Urine Ketones Urine Occult Blood Urine Nitrite Urine Bilirubin Urine Urobilinogen Ur Leukocyte Esterase Urine RBC Urine WBC Ur Squamous Epith Cells Urine Bacteria Urine Mucus COVID-19 (ANTWAN) POC Glucose 172 H Micro: Microbiology 08/28/20 17:35 Urine, Clean Catch Legionella Antigen - Final 08/28/20 17:35 Urine, Clean Catch Streptococcus pneumoniae Antigen (M - Final 08/28/20 17:57 Interface Orders SARS-CoV-2 Antigen (Rapid) - Final Radiography Diagnostic Testing: Radiology Impression Chest X-Ray 08/28/20 18:12 IMPRESSION: Normal lung volumes. Ill-defined pulmonary opacities of the right upper lobe in right lower lobe consistent with multifocal pneumonia. Electronically Signed: Karl Huerta MD at 18:51 EDT , Service support , Physical Exam Const alert, oriented x3 and no apparent distress Orientation / Consciousness: awake, oriented to person, oriented to place and oriented to time HEENT normocephalic and moist oral mucous membranes Eyes PERRL, EOMs intact bilaterally and conjunctivae normal Neck no lymphadenopathy Resp clear to auscultation bilaterally Auscultation: diminished lung sounds Cardio regular rate, regular rhythm and no murmurs Peripheral Pulses: pulses 2+ throughout GI normal to inspection, nondistended, normoactive bowel sounds, non-tender and non-distended Inspection: central obesity Extremity normal to inspection Skin no rashes or lesions noted Lesions: no lesions Rashes: no rashes Trauma: no lacerations or abrasions Neuro oriented x3 Sensorium / Orientation: awake and alert Psych affect normal Assessment & Plan Assessment/Plan (1) Pneumonia: QUALIFIERS: Laterality: right Lung location: lower lobe of lung Pneumonia type: due to unspecified organism Qualified Code(s): J18.9 - Pneumonia, unspecified organism (2) Sepsis: PLAN: 1. Severe sepsis secondary to community-acquired pneumonia-continue IV Rocephin and IV azithromycin. Albuterol and DuoNeb aerosols. Blood cultures pending. Urine for strep and Legionella negative. Clinically improving, anticipate discharge tomorrow if continued improvement. 2. Type 2 diabetes [id number] with sliding scale insulin. Continue home insulin regimen. 3. MILAGRO on CPAP 4. Chronic COPD/asthma-no exacerbation. Aerosol. 5. Chronic bilateral lower extremity lymphedema-follows with lymphedema clinic as outpatient. 6. History of chronic atrial fibrillation-on Cardizem, beta-kostas, Coumadin. 7. Hyperlipidemia-continue statin. 8. Morbid obesity-encouraged diet and lifestyle modifications. 9. Hypertension-continue lisinopril, Cardizem, beta-kostas. DVT prophylaxis-Coumadin This patient was seen by DONYA Lopez under the supervision of Dr. Lincoln lai. Documented by User: Dr. Derek Espinal MD 08/29/20 11:41 Objective Data Lab / Micro Data Result Diagrams: 08/29/20 05:06 08/29/20 05:06 Assessment & Plan Addt'l Comments This patient was seen in conjunction with DONYA Lopez . I have independently interviewed and examined the patient and reviewed pertinent historical, laboratory, and other data. Please refer to DONYA Lopez note for details of this patient's presentation, findings, and recommendations. I have reviewed DONYA Lopez note and concur with documented findings. In brief, patient is a 55-year-old gentleman admitted with fever and chills imaging studies demonstrated multifocal pneumonia admitted for subsequent inpatient management Physical Examination: GENERAL: cooperative HEENT: Atraumatic; EYES; Anicteric, Normal Conjunctiva NECK; supple, normal thyroid, RESPIRATORY: Diminished to auscultation CARDIOVASCULAR: Regular S1 S2, GI: soft, normoactive bowel sounds, : No Renal angle tenderness; EXTREMITIES: Bilateral stasis dermatitis MUSCULOSKELETAL: no muscle waisting NEURO: Awake; no lateralizing signs. SKIN: No Rash PSYCH; Flat affect Assessment: 1. Severe sepsis secondary to community-acquired pneumonia 2. Chronic A. fib 3. Morbid obesity with BMI of 6.4 4. Obstructive sleep apnea 5. COPD/asthma 6. Bilateral lymphedema 7. Essential hypertension 8. DVT prophylaxis on Coumadin Recommendations: 1. I have discussed the results of my overview and impressions with the patient 2. Options for management were reviewed Visit Charges Inpatient E&M: 75582 [facility] Hosp L3
[2020-08-29] MEDS: Potassium Chloride Oral Tablet 20 MEQ 40 MEQ PO (12:32)
[2020-08-29 12:55] LABS: Bedside Glucose 210 mg/dL (70-110)
--- NOTE | 2020-08-29 14:57 | CHAPLAIN ---
Type of Pastoral Visit _x__ Initial Visit ___ Follow-up Visit ___ On-call Visit ___ General Patient Visit ___ Spiritual Assessment ___ Family Conference ___ Bereavement ___ Rapid Response ___ Code Blue ___ Other (describe below) Pastoral Care Referral From _x__ Patient ___ Family ___ Nurse ___ Physician ___ Ribbon Weaver ___ Hydrotechnical Specialist ___ Other (describe below) Sacrament/Intervention _x__ Active listening ___ Anointing ___ Taoist ___ Bereavement ___ Communion ___ Dali exploration ___ ___ Life review _x__ Prayer ___ Reconciliation ___ Sacrament of Sick _x__ Supportive presence ___ Wedding ___ Other (describe below) Pastoral Comments
[2020-08-29 17:40] LABS: Bedside Glucose 223 mg/dL (70-110)
[2020-08-29] MEDS: 0.9% Saline Lock 10 ML Syringe IV ×2 (21:26→23:33)
[2020-08-29] MEDS: Loratadine 10 MG Tablet PO (21:31)
[2020-08-29] MEDS: Atorvastatin Calcium 10 MG Tablet PO (21:31)
[2020-08-29] MEDS: Furosemide 40 MG Tablet PO (21:31)
[2020-08-29] MEDS: Montelukast 10 MG Tablet PO (21:32)
[2020-08-29 21:40] LABS: Bedside Glucose 315 mg/dL (70-110)
[2020-08-29] MEDS: MELATONIN 10 MG TABLET PO (22:52)
[2020-08-30] VITALS (7 sets, daily range): BP systolic 134–153; BP diastolic 64–79; PULSE 65–92; RESP 16–18; TEMP 36.4–36.7; O2SAT 94–100
[2020-08-30] MEDS: Insulin Lispro 100 UNIT/ML INSULN.PEN SC ×4 (06:38→22:54)
[2020-08-30 06:45] LABS: Bedside Glucose 192 mg/dL (70-110)
[2020-08-30 07:05] LABS: Absolute Lymphocyte Count 0.61 X10^3/uL (0.83-4.51); Absolute Neutrophil Count 5.1 X10^3/uL (2.0-7.7); Basophil# 0.04 X10^3/uL; Basophil% 0.6 % (0-1); Eosinophil# 0.25 X10^3/uL; Eosinophils% 3.7 % (0-5); Hematocrit 32.1 % (40-54); Lymphocyte # 0.61 X10^3/ul (0.83-4.51); Lymphocyte % 8.9 % (19-41); Mean Corp Hgb Conc 31.2 g/dL (32-36); Mean Corpuscular Hgb 26.4 pg (27.0-32.0); Mean Corpuscular Volume 84.7 fL (80-94); Monocyte# 0.81 X10^3/uL; Monocyte% 11.8 % (0-10); NRBC Flagged by Analyzer 0 % (0-5); Neutrophil # 5.06 X10^3/uL (2.7-7.7); Platelet Count 180 K/mm3 (150-450); RBC Distribution Width CV 17.4 % (11.6-14.6); RBC Distribution Width SD 53.2 fl (35.1-43.9); Red Blood Count 3.79 M/mm3 (4.6-6.2); White Blood Count 6.8 K/mm3 (4.4-11.0)
[2020-08-30 07:25] LABS: International Normalized Ratio 1.7; Prothrombin Time (Protime)PT. 19.5 SECONDS (11.7-14.9)
[2020-08-30] MEDS: Gabapentin 300 MG Capsule PO ×2 (07:39→16:55)
[2020-08-30] MEDS: Vitamin B Comp W-C Capsule 1 CAP PO (07:39)
[2020-08-30] MEDS: Furosemide 80 MG Tablet PO (07:39)
[2020-08-30] MEDS: Glimepiride 4 MG Tablet PO (07:40)
[2020-08-30] MEDS: Lisinopril 5 MG Tablet PO (07:40)
[2020-08-30] MEDS: Multivitamins,Ther W-Minerals Tablet 1 TABLET PO (07:40)
[2020-08-30] MEDS: dilTIAZem CD 180 MG Capsule 360 MG PO (07:40)
[2020-08-30] MEDS: 0.9% Saline Lock 10 ML Syringe IV ×3 (07:44→22:49)
[2020-08-30 07:45] LABS: Anion Gap 9 (5-15); BUN 18 mg/dL (7-18); BUN/Creat Ratio 18.3 RATIO (10-20); Calcium,Total 8.5 mg/dL (8.5-10.1); Chloride 100 mmol/L (98-107); Creatinine, Serum 0.98 mg/dL (0.70-1.30); EST Glomerular Filtration Rate 84 mL/min (>60); Est Glom Filt Rate - Afr Amer 102 mL/min (>60); Estimated Creatinine Clearance 94.58 ml/min; Glucose 190 mg/dL (74-106); Potassium 3.5 mmol/L (3.5-5.1); Sodium Level 135 mmol/L (136-145)
[2020-08-30 11:40] LABS: Bedside Glucose 270 mg/dL (70-110)
[2020-08-30] MEDS: Ketorolac 30 MG/ML Syringe IV (12:16)
--- NOTE | 2020-08-30 13:06 | PN.HOSP_ITS ---
Documented by User: Gladys Hurst NP, POLYSOMNOGRAPHY TECHNOLOGIST-C 08/30/20 13:13 Subjective Subjective Patient seen and examined. Denies shortness of breath, fever, chills. Complains of right thigh redness, discomfort and warmth which he states feels similar to prior episodes of cellulitis. Objective Data Objective Data Vital Signs: Vital Signs Temp Pulse Resp BP Pulse Ox 98.1 F 92 18 153/79 H 96 08/30/20 07:53 08/30/20 07:53 08/30/20 07:53 08/30/20 07:53 08/30/20 07:53 Oxygen Delivery Method Room Air Weight: 416 lb 10.778 oz Body Mass Index (BMI) 56.4 Intake & Output: Intake and Output for Last 24 Hours 08/28/20 08/29/20 08/30/20 23:59 23:59 23:59 Intake Total 1305 / 1305 1785 / 2385 1200 / 1200 Output Total 2750 / 2750 600 / 600 Balance 1305 / 1305 -965 / -365 600 / 600 Lab / Micro Data Result Diagrams: 08/30/20 06:20 08/30/20 06:20 Labs: Laboratory Results - last 24 hr 08/29/20 08/29/20 08/30/20 17:26 21:30 06:20 WBC 6.8 RBC 3.79 L Hgb 10.0 L Hct 32.1 L MCV 84.7 MCH 26.4 L MCHC 31.2 L RDW Std Deviation 53.2 H RDW Coeff of Brina 17.4 H Plt Count 180 MPV 10.0 Immature Gran % (Auto) 1.000 H Neut % (Auto) 74.0 H Lymph % (Auto) 8.9 L [place] % (Auto) 11.8 H Eos % (Auto) 3.7 Baso % (Auto) 0.6 Absolute Neuts (auto) 5.1 Absolute Lymphs (auto) 0.61 L Nucleated RBC % 0 PT INR Sodium Potassium Chloride Carbon Dioxide Anion Gap BUN Creatinine Estim Creat Clear Calc Est GFR (MDRD) Af Amer Est GFR (MDRD) Non-Af BUN/Creatinine Ratio Glucose Calcium POC Glucose 223 H 315 H 08/30/20 08/30/20 08/30/20 06:20 06:20 06:37 WBC RBC Hgb Hct MCV MCH MCHC RDW Std Deviation RDW Coeff of Brina Plt Count MPV Immature Gran % (Auto) Neut % (Auto) Lymph % (Auto) [place] % (Auto) Eos % (Auto) Baso % (Auto) Absolute Neuts (auto) Absolute Lymphs (auto) Nucleated RBC % PT 19.5 H INR 1.7 Sodium 135 L Potassium 3.5 Chloride 100 Carbon Dioxide 26.0 Anion Gap 9 BUN 18 Creatinine 0.98 Estim Creat Clear Calc 94.58 Est GFR (MDRD) Af Amer 102 Est GFR (MDRD) Non-Af 84 BUN/Creatinine Ratio 18.3 Glucose 190 H Calcium 8.5 POC Glucose 192 H 08/30/20 11:13 WBC RBC Hgb Hct MCV MCH MCHC RDW Std Deviation RDW Coeff of Brina Plt Count MPV Immature Gran % (Auto) Neut % (Auto) Lymph % (Auto) [place] % (Auto) Eos % (Auto) Baso % (Auto) Absolute Neuts (auto) Absolute Lymphs (auto) Nucleated RBC % PT INR Sodium Potassium Chloride Carbon Dioxide Anion Gap BUN Creatinine Estim Creat Clear Calc Est GFR (MDRD) Af Amer Est GFR (MDRD) Non-Af BUN/Creatinine Ratio Glucose Calcium POC Glucose 270 H Micro: Microbiology 08/28/20 17:35 Urine, Clean Catch Urine Culture - Final Mixed Gram Positive Organisms 08/28/20 17:35 Urine, Clean Catch Legionella Antigen - Final 08/28/20 17:35 Urine, Clean Catch Streptococcus pneumoniae Antigen (M - Final 08/28/20 17:57 Interface Orders SARS-CoV-2 Antigen (Rapid) - Final Physical Exam Const alert, oriented x3 and no apparent distress Orientation / Consciousness: awake, oriented to person, oriented to place and oriented to time HEENT normocephalic and moist oral mucous membranes Eyes PERRL, EOMs intact bilaterally and conjunctivae normal Neck no lymphadenopathy Resp clear to auscultation bilaterally Auscultation: diminished lung sounds Cardio regular rate, regular rhythm and no murmurs Peripheral Pulses: pulses 2+ throughout GI normal to inspection, nondistended, normoactive bowel sounds, non-tender and non-distended Inspection: central obesity Extremity normal to inspection Skin Skin Narrative: Right outer thigh warmth and erythema, area marked and appears improving. Lesions: no lesions Rashes: no rashes Trauma: no lacerations or abrasions Neuro CN's II-XII intact bilaterally, no focal motor deficits, no sensory deficits noted and deep tendon reflexes 2+ bilaterally Psych mental status grossly normal and affect normal Assessment & Plan Assessment/Plan (1) Sepsis: (2) Pneumonia: QUALIFIERS: Laterality: right Lung location: lower lobe of lung Pneumonia type: due to unspecified organism Qualified Code(s): J18.9 - Pneumonia, unspecified organism PLAN: 1. Severe sepsis secondary to community-acquired pneumonia and right thigh cellulitis-continue IV Rocephin and IV azithromycin. Albuterol and DuoNeb aerosols. Blood cultures pending, no growth so far. Urine for strep and Legionella negative. Continue IV antibiotics today due to continued right thigh warmth and erythema, anticipate discharge tomorrow if continued improvement. Leukocytosis and fever resolved. 2. Type 2 diabetes [id number]-[id number] with sliding scale insulin. Continue home insulin regimen. 3. MIL[place] on CPAP 4. Chronic COPD/asthma-no exacerbation. Aerosol. 5. Chronic bilateral lower extremity lymphedema-follows with lymphedema clinic as outpatient. 6. History of chronic atrial fibrillation-on Cardizem, beta-kostas, Coumadin. 7. Hyperlipidemia-continue statin. 8. Morbid obesity-encouraged diet and lifestyle modifications. 9. Hypertension-continue lisinopril, Cardizem, beta-kostas. DVT prophylaxis-Coumadin This patient was seen by DONYA Lopez under the supervision of Dr. Espinal. Documented by User: Dr. Derek Espinal MD 08/30/20 14:13 Objective Data Lab / Micro Data Result Diagrams: 08/30/20 06:20 08/30/20 06:20 Assessment & Plan Addt'l Comments This patient was seen in conjunction with DONYA Lopez .? I have i ndependently interviewed and examined the patient and reviewed pertinent historical, laboratory, and other data.? Please refer to DONYA Lopez? note for details of this patient's presentation, findings, and recommendations.? I have reviewed? DONYA Lopez ? note and concur? with documented findings. In brief, patient is a 55-year-old gentleman admitted with fever and chills alondra ging studies demonstrated multifocal pneumonia admitted for subsequent inpatient management 08/30/2017 when; patient did notice an area of erythema and warmth on on the medial aspect of the right thigh. An assessment of cellulitis was made. Patient currently on appropriate antibiotic therapy Physical Examination: GENERAL: cooperative HEENT: Atraumatic; EYES; Anicteric, Normal Conjunctiva NECK; supple, normal thyroid, RESPIRATORY: Diminished to auscultation CARDIOVASCULAR:? Regular S1 S2, GI:? soft, normoactive bowel sounds, : No Renal angle tenderness; EXTREMITIES: Bilateral stasis dermatitis MUSCULOSKELETAL:? no muscle waisting NEURO:? Awake;? no lateralizing signs. SKIN:? No Rash PSYCH; Flat? affect Assessment:? 1.? Severe sepsis secondary to community-acquired pneumonia 2. Cellulitis involving the right lower extremity 3.? Morbid obesity with BMI of 6.4 4.? Obstructive sleep apnea 5.? COPD/asthma 6.? Bilateral lymphedema 7.? Essential hypertension 8.? Chronic A. fib 9. DVT prophylaxis on Coumadin Recommendations: 1.? I have discussed the results of my overview and impressions with the patient 2.? Options for management were reviewed Visit Charges Inpatient E&M: 95156 Subs Hosp L2
[2020-08-30] MEDS: Ipratropium/Albuterol Sulfate 3 ML AMPUL.NEB INHALATION ×2 (13:37→20:13)
[2020-08-30 17:05] LABS: Bedside Glucose 279 mg/dL (70-110)
[2020-08-30] MEDS: Budesonide Respules 0.5 MG/2 ML AMPUL.NEB. INHALATION (20:13)
[2020-08-30] MEDS: Atorvastatin Calcium 10 MG Tablet PO (20:53)
[2020-08-30] MEDS: Montelukast 10 MG Tablet PO (20:53)
[2020-08-30] MEDS: Loratadine 10 MG Tablet PO (20:53)
[2020-08-30] MEDS: Furosemide 40 MG Tablet PO (20:56)
[2020-08-30] MEDS: MELATONIN 10 MG TABLET PO (22:48)
[2020-08-30 23:11] LABS: Bedside Glucose 387 mg/dL (70-110)
[2020-08-31 03:00] VITALS: RESP 16; O2SAT 97
[2020-08-31 03:39] VITALS: BP 138/67; PULSE 66; RESP 16; TEMP 36.7; O2SAT 98
[2020-08-31] MEDS: Acetaminophen 325 MG Tablet 650 MG PO ×2 (03:57→11:06)
[2020-08-31] MEDS: Insulin Lispro 100 UNIT/ML INSULN.PEN SC ×2 (06:51→11:06)
[2020-08-31 07:00] LABS: International Normalized Ratio 1.8; Prothrombin Time (Protime)PT. 20.1 SECONDS (11.7-14.9)
[2020-08-31 07:09] VITALS: PULSE 78; RESP 16; O2SAT 95
[2020-08-31] MEDS: Budesonide Respules 0.5 MG/2 ML AMPUL.NEB. INHALATION (07:09)
[2020-08-31] MEDS: Ipratropium/Albuterol Sulfate 3 ML AMPUL.NEB INHALATION (07:09)
[2020-08-31 07:10] LABS: Bedside Glucose 244 mg/dL (70-110)
[2020-08-31] MEDS: Gabapentin 300 MG Capsule PO (08:14)
[2020-08-31] MEDS: Furosemide 80 MG Tablet PO (08:14)
[2020-08-31] MEDS: Multivitamins,Ther W-Minerals Tablet 1 TABLET PO (08:14)
[2020-08-31 09:12] VITALS: BP 148/67; PULSE 67; RESP 16; TEMP 36.4; O2SAT 96
[2020-08-31] MEDS: Lisinopril 5 MG Tablet PO (09:18)
[2020-08-31] MEDS: Glimepiride 4 MG Tablet PO (09:18)
[2020-08-31] MEDS: dilTIAZem CD 180 MG Capsule 360 MG PO (09:19)
[2020-08-31] MEDS: Vitamin B Comp W-C Capsule 1 CAP PO (09:19)
--- NOTE | 2020-08-31 09:42 | PCM.DC ---
Discharge Instructions Diet Discharge Diet: Low fat / Low cholesterol Activity Discharge Activity: Return to Normal Activity Dressing / Incision Call your doctor if your incision/area has: Increased Pain/ Swelling and Increased Redness Call your doctor if you observe: Fever of 101 or Higher and Shortness of breath Follow Up Care Test Results: Test results from this visit will be discussed in further detail at your follow-up appointment, if applicable. Discharge Plan Admission Admit Date/Time: 08/28/20 19:41 Primary Reason for Your Visit: Pneumonia, cellulitis Attending Provider: Derek Espinal Primary Care Provider: Al Mondragon Discharge Orders/Prescriptions Prescriptions: New cephalexin 500 mg capsule 500 mg PO Q6H Qty: 20 RF: 0 sulfamethoxazole-trimethoprim [Bactrim DS] 800-160 mg tablet 2 tab PO BID Qty: 20 RF: 0 Continued meclizine 25 mg tablet 25 mg PO DAILY PRN (Reason: Vertigo) 8 Days Qty: 32 RF: 0 vitamin B complex [B Complex-Vitamin B12] tablet 1 tab PO DAILY RF: 0 furosemide [Lasix] 40 mg tablet 80 mg PO BREAKFAST RF: 0 albuterol sulfate [ProAir HFA] 90 mcg/actuation HFA aerosol inhaler 2 puff INHALATION Q4H PRN (Reason: shortness of breath or wheezing) RF: 0 montelukast 10 mg tablet 10 mg PO QHS RF: 0 atorvastatin 10 MG tablet 10 mg PO QHS RF: 0 lisinopril 5 MG tablet 5 mg PO DAILY RF: 0 metformin 1,000 MG tablet 1,000 mg PO BID RF: 0 betaxolol 10 MG tablet 10 mg PO DAILY RF: 0 fluticasone propionate 1 SPRAY spray,suspension 2 spray NASAL DAILY PRN (Reason: Allergies) RF: 0 insulin glargine U-300 conc 300 UNIT/ML insulin pen 60 units SQ BID RF: 0 Triamcinolone 0.1% Cream [Kenalog] 1 APPLIC Tube 1 applic topical BID PRN (Reason: Rash/Topical Irritation) RF: 0 glimepiride 4 MG tablet 4 mg PO DAILY RF: 0 gabapentin 300 MG capsule 300 mg PO BIDCM RF: 0 furosemide 40 mg tablet 40 mg PO QHS RF: 0 warfarin 1 mg tablet 11 mg PO DINNER RF: 0 omega-3 fatty acids Capsule 1,000 mg PO DAILY RF: 0 Centrum Silver Men 300-600-300 mcg Tablet 1 tab PO DAILY RF: 0 cetirizine 10 mg capsule 10 mg PO HS RF: 0 Trelegy Ellipta 200-62.5-25 mcg blister with device 1 inh INHALATION DAILY RF: 0 diltiazem HCl 360 mg capsule,extended release 24 hr 360 mg PO DAILY RF: 0 Referrals / Follow Up: Al Mondragon MD [Primary Care Provider] - In 1 Week Disposition Disposition (needs filled in before D/C Order can be placed): Home, self care
--- NOTE | 2020-08-31 10:26 | PCM.DC.SUM ---
Documented by User: Gladys Hurst NP, DATABASE MARKETING MANAGER-C 08/31/20 10:34 Providers Date of Admission: 08/28/20 Date of Discharge: 08/31/20 Primary Care Physician: Dr. Al Mondragon MD Reason For Visit: SEPSIS DUE TO COMMUNITY ACQUIRED PNEUMONIA Diagnosis Discharge Diagnosis (1) Sepsis: Status: Acute Code(s): A41.9 - Sepsis, unspecified organism (2) Pneumonia: Status: Acute Code(s): J18.9 - Pneumonia, unspecified organism Qualifiers: Laterality: right Lung location: lower lobe of lung Pneumonia type: due to unspecified organism Qualified Code(s): J18.9 - Pneumonia, unspecified organism Medications at Discharge Home Medications atorvastatin 10 mg PO QHS 01/29/15 lisinopril 5 mg PO DAILY 01/29/15 betaxolol 10 mg PO DAILY 03/03/17 metformin 1,000 mg PO BID 03/03/17 meclizine 25 mg tablet 25 mg PO DAILY PRN 8 Days #32 tab 08/08/18 vitamin B complex 1 tab PO DAILY 08/08/18 albuterol sulfate 90 mcg/actuation aerosol inhaler 2 puff INHALATION Q4H PRN g 12/19/18 Triamcinolone 0.1% Cream [Kenalog] 1 applic TOPICAL BID PRN 03/14/19 fluticasone propionate 2 spray NASAL DAILY PRN 03/14/19 insulin glargine U-300 conc 60 units SQ BID 03/14/19 gabapentin 300 mg PO BIDCM 06/04/19 glimepiride 4 mg PO DAILY 06/04/19 furosemide 40 mg tablet 80 mg PO BREAKFAST tab 05/07/20 montelukast 10 mg tablet 10 mg PO QHS 05/07/20 Centrum Silver Men 1 tab PO DAILY 08/28/20 Trelegy Ellipta 1 inh INHALATION DAILY 08/28/20 cetirizine 10 mg PO HS 08/28/20 diltiazem HCl 360 mg PO DAILY 08/28/20 furosemide 40 mg PO QHS 08/28/20 omega-3 fatty acids 1,000 mg PO DAILY 08/28/20 warfarin 11 mg PO DINNER 08/28/20 cephalexin 500 mg PO Q6H #20 cap 08/31/20 sulfamethoxazole-trimethoprim [Bactrim DS] 2 tab PO BID #20 tab 08/31/20 Hospital Course Operations None Procedures None Summary of Care Provided Minutes Spent on Discharge: 35 Hospital Course: Patient is a 55-year-old male admitted 08/28/2020 due to general malaise, fever. 1. Severe sepsis secondary to community-acquired pneumonia and right thigh cellulitis-IV Rocephin and IV azithromycin during admission. Blood cultures pending, no growth so far. Urine for strep and Legionella negative. Leukocytosis and fever resolved. Oxygen stable on room air. Right thigh redness improving. Keflex and Bactrim at discharge for 5 days to complete course. Follow-up with PCP within 1 week. 2. Type 2 diabetes mellitus-continue home oral and insulin regimen. 3. MIL[place] on CPAP 4. Chronic COPD/asthma-no exacerbation. 5. Chronic bilateral lower extremity lymphedema-follows with lymphedema clinic as outpatient. 6. History of chronic atrial fibrillation-on Cardizem, beta-kostas, Coumadin. 7. Hyperlipidemia-continue statin. 8. Morbid obesity-encouraged diet and lifestyle modifications. 9. Hypertension-continue lisinopril, Cardizem, beta-kostas. Physical Exam Const alert, oriented x3 and no apparent distress Orientation / Consciousness: awake, oriented to person, oriented to place and oriented to time HEENT normocephalic and moist oral mucous membranes Eyes PERRL, EOMs intact bilaterally and conjunctivae normal Neck no lymphadenopathy Resp clear to auscultation bilaterally Auscultation: diminished lung sounds Cardio regular rate, regular rhythm and no murmurs Peripheral Pulses: pulses 2+ throughout GI normal to inspection, nondistended, normoactive bowel sounds, non-tender and non-distended Inspection: central obesity Extremity normal to inspection Skin Skin Narrative: Right outer thigh warmth and erythema, area marked and appears improving. Lesions: no lesions Rashes: no rashes Trauma: no lacerations or abrasions Neuro CN's II-XII intact bilaterally, no focal motor deficits, no sensory deficits noted and deep tendon reflexes 2+ bilaterally Psych mental status grossly normal and affect normal Patient seen and examined prior to discharge. Physical assessment as noted above. Patient is stable for discharge with follow up recommendations as noted above. This patient was seen by DONYA Lopez under the supervision of Dr. Espinal. ABG / Lab / Microbiology Data Result Diagrams: 08/30/20 06:20 08/30/20 06:20 Laboratory: Laboratory Results - last 24 hr 08/30/20 08/30/20 08/30/20 11:13 16:47 22:52 PT INR POC Glucose 270 H 279 H 387 H 08/31/20 08/31/20 05:56 06:49 PT 20.1 H INR 1.8 POC Glucose 244 H Microbiology: Microbiology 08/28/20 17:35 Urine Culture - Final Urine, Clean Catch Mixed Gram Positive Organisms Microbiology 08/28/20 17:35 Urine, Clean Catch Urine Culture - Final Mixed Gram Positive Organisms 08/28/20 17:35 Urine, Clean Catch Legionella Antigen - Final 08/28/20 17:35 Urine, Clean Catch Streptococcus pneumoniae Antigen (M - Final 08/28/20 17:57 Interface Orders SARS-CoV-2 Antigen (Rapid) - Final D/C Instructions Discharge Diet: Low fat / Low cholesterol Discharge Activity: Return to Normal Activity Call your doctor if your incision/area has: Increased Pain/ Swelling and Increased Redness Call your doctor if you observe: Fever of 101 or Higher and Shortness of breath Meaningful Use Info Meaningful Use Diagnoses (Choose all that apply): None applicable Discharge Plan Admission Admit Date/Time: 08/28/20 19:41 Primary Reason for Your Visit: Pneumonia, cellulitis Attending Provider: Derek Espinal Primary Care Provider: Al Mondragon Discharge Orders/Prescriptions Prescriptions: New cephalexin 500 mg capsule 500 mg PO Q6H Qty: 20 RF: 0 sulfamethoxazole-trimethoprim [Bactrim DS] 800-160 mg tablet 2 tab PO BID Qty: 20 RF: 0 Continued meclizine 25 mg tablet 25 mg PO DAILY PRN (Reason: Vertigo) 8 Days Qty: 32 RF: 0 vitamin B complex [B Complex-Vitamin B12] tablet 1 tab PO DAILY RF: 0 furosemide [Lasix] 40 mg tablet 80 mg PO BREAKFAST RF: 0 albuterol sulfate [ProAir HFA] 90 mcg/actuation HFA aerosol inhaler 2 puff INHALATION Q4H PRN (Reason: shortness of breath or wheezing) RF: 0 montelukast 10 mg tablet 10 mg PO QHS RF: 0 atorvastatin 10 MG tablet 10 mg PO QHS RF: 0 lisinopril 5 MG tablet 5 mg PO DAILY RF: 0 metformin 1,000 MG tablet 1,000 mg PO BID RF: 0 betaxolol 10 MG tablet 10 mg PO DAILY RF: 0 fluticasone propionate 1 SPRAY spray,suspension 2 spray NASAL DAILY PRN (Reason: Allergies) RF: 0 insulin glargine U-300 conc 300 UNIT/ML insulin pen 60 units SQ BID RF: 0 Triamcinolone 0.1% Cream [Kenalog] 1 APPLIC Tube 1 applic topical BID PRN (Reason: Rash/Topical Irritation) RF: 0 glimepiride 4 MG tablet 4 mg PO DAILY RF: 0 gabapentin 300 MG capsule 300 mg PO BIDCM RF: 0 furosemide 40 mg tablet 40 mg PO QHS RF: 0 warfarin 1 mg tablet 11 mg PO DINNER RF: 0 omega-3 fatty acids Capsule 1,000 mg PO DAILY RF: 0 Centrum Silver Men 300-600-300 mcg Tablet 1 tab PO DAILY RF: 0 cetirizine 10 mg capsule 10 mg PO HS RF: 0 Trelegy Ellipta 200-62.5-25 mcg blister with device 1 inh INHALATION DAILY RF: 0 diltiazem HCl 360 mg capsule,extended release 24 hr 360 mg PO DAILY RF: 0 Referrals / Follow Up: Al Mondragon MD [Primary Care Provider] - In 1 Week Disposition Disposition (needs filled in before D/C Order can be placed): Home, self care Documented by User: Dr. Derek Espinal MD 08/31/20 12:20 Providers Date of Admission: 08/28/20 Reason For Visit: SEPSIS DUE TO COMMUNITY ACQUIRED PNEUMONIA Medications at Discharge Home Medications atorvastatin 10 mg PO QHS 01/29/15 lisinopril 5 mg PO DAILY 01/29/15 betaxolol 10 mg PO DAILY 03/03/17 metformin 1,000 mg PO BID 03/03/17 meclizine 25 mg tablet 25 mg PO DAILY PRN 8 Days #32 tab 08/08/18 vitamin B complex 1 tab PO DAILY 08/08/18 albuterol sulfate 90 mcg/actuation aerosol inhaler 2 puff INHALATION Q4H PRN g 12/19/18 Triamcinolone 0.1% Cream [Kenalog] 1 applic TOPICAL BID PRN 03/14/19 fluticasone propionate 2 spray NASAL DAILY PRN 03/14/19 insulin glargine U-300 conc 60 units SQ BID 03/14/19 gabapentin 300 mg PO BIDCM 06/04/19 glimepiride 4 mg PO DAILY 06/04/19 furosemide 40 mg tablet 80 mg PO BREAKFAST tab 05/07/20 montelukast 10 mg tablet 10 mg PO QHS 05/07/20 Centrum Silver Men 1 tab PO DAILY 08/28/20 Trelegy Ellipta 1 inh INHALATION DAILY 08/28/20 cetirizine 10 mg PO HS 08/28/20 diltiazem HCl 360 mg PO DAILY 08/28/20 furosemide 40 mg PO QHS 08/28/20 omega-3 fatty acids 1,000 mg PO DAILY 08/28/20 warfarin 11 mg PO DINNER 08/28/20 cephalexin 500 mg PO Q6H #20 cap 08/31/20 sulfamethoxazole-trimethoprim [Bactrim DS] 2 tab PO BID #20 tab 08/31/20 Hospital Course Summary of Care Provided Hospital Course: This patient was seen in conjunction with DONYA Lopez .? I have independently interviewed and examined the patient and reviewed pertinent historical, laboratory, and other data.? Please refer to DONYA Lopez? note for details of this patient's presentation, findings, and recommendations.? I have reviewed? DONYA Lopez ? note and concur? with documented findings. In brief, patient is a 55-year-old gentleman admitted with fever and chills imaging studies demonstrated multifocal pneumonia admitted for subsequent inpatient management. Patient hospital stay complicated by development of cellulitis involving the right thigh Assessment:? 1.? Severe sepsis secondary to community-acquired pneumonia 2.? Cellulitis involving the right lower extremity 3.? Morbid obesity with BMI of 6.4 4.? Obstructive sleep apnea 5.? COPD/asthma 6.? Bilateral lymphedema 7.? Essential hypertension 8.? Chronic A. fib 9.? DVT prophylaxis on Coumadin Hospital course: As documented above ABG / Lab / Microbiology Data Result Diagrams: 08/30/20 06:20 08/30/20 06:20 Discharge Plan Admission Admit Date/Time: 08/28/20 19:41 Primary Reason for Your Visit: Pneumonia, cellulitis Attending Provider: Derek Espinal Primary Care Provider: Al Mondragon Discharge Orders/Prescriptions Prescriptions: New cephalexin 500 mg capsule 500 mg PO Q6H Qty: 20 RF: 0 sulfamethoxazole-trimethoprim [Bactrim DS] 800-160 mg tablet 2 tab PO BID Qty: 20 RF: 0 Continued meclizine 25 mg tablet 25 mg PO DAILY PRN (Reason: Vertigo) 8 Days Qty: 32 RF: 0 vitamin B complex [B Complex-Vitamin B12] tablet 1 tab PO DAILY RF: 0 furosemide [Lasix] 40 mg tablet 80 mg PO BREAKFAST RF: 0 albuterol sulfate [ProAir HFA] 90 mcg/actuation HFA aerosol inhaler 2 puff INHALATION Q4H PRN (Reason: shortness of breath or wheezing) RF: 0 montelukast 10 mg tablet 10 mg PO QHS RF: 0 atorvastatin 10 MG tablet 10 mg PO QHS RF: 0 lisinopril 5 MG tablet 5 mg PO DAILY RF: 0 metformin 1,000 MG tablet 1,000 mg PO BID RF: 0 betaxolol 10 MG tablet 10 mg PO DAILY RF: 0 fluticasone propionate 1 SPRAY spray,suspension 2 spray NASAL DAILY PRN (Reason: Allergies) RF: 0 insulin glargine U-300 conc 300 UNIT/ML insulin pen 60 units SQ BID RF: 0 Triamcinolone 0.1% Cream [Kenalog] 1 APPLIC Tube 1 applic topical BID PRN (Reason: Rash/Topical Irritation) RF: 0 glimepiride 4 MG tablet 4 mg PO DAILY RF: 0 gabapentin 300 MG capsule 300 mg PO BIDCM RF: 0 furosemide 40 mg tablet 40 mg PO QHS RF: 0 warfarin 1 mg tablet 11 mg PO DINNER RF: 0 omega-3 fatty acids Capsule 1,000 mg PO DAILY RF: 0 Centrum Silver Men 300-600-300 mcg Tablet 1 tab PO DAILY RF: 0 cetirizine 10 mg capsule 10 mg PO HS RF: 0 Trelegy Ellipta 200-62.5-25 mcg blister with device 1 inh INHALATION DAILY RF: 0 diltiazem HCl 360 mg capsule,extended release 24 hr 360 mg PO DAILY RF: 0 Referrals / Follow Up: Al Mondragon MD [Primary Care Provider] - In 1 Week Disposition Disposition (needs filled in before D/C Order can be placed): Home, self care Visit Charges Inpatient E&M: 54313 Disch Hosp
[2020-08-31 11:26] LABS: Bedside Glucose 311 mg/dL (70-110)
--- NOTE | 2020-09-02 14:36 | CASEMGMT ---
RN BEENA Discharge Follow Up Phone Call: MALCOLM: Eladia Strata: 3 Call Date: 09.02.20 Discharge Date: 08.31.20 Time of Call:1432 Duration: 3 min Admitting Dx: sepsis d/t CAP [place] completed follow up phone call after recent hospitalization. Pt states he is doing well after dc from hospital. States he is not 100% yet but is back to work. Pt received rx from [facility] prior to leaving the hospital. He states he has not yet made his follow up appt with but will do so. Pt denies questions regarding dc instructions or medications.
== END 2020-08-31 12:06 | disposition home or self-care (01) | DRG 871 ==
LOC: ED 18:05 → PCU 20:52
PROVIDERS: Nurse Practitioner Family; Admitting Provider Student in an Organized Health Care Education/Training Program; Emergency Provider Emergency Medicine; PCP Family Medicine; Visit Provider Internal Medicine
DX: A41.9 Sepsis, unspecified organism (principal); J18.9 Pneumonia, unspecified organism; I48.20 Chronic atrial fibrillation, unspecified; J44.0 Chronic obstructive pulmonary disease with (acute) lower respiratory infection; Z68.43 Body mass index [BMI] 50.0-59.9, adult; L03.115 Cellulitis of right lower limb; I50.32 Chronic diastolic (congestive) heart failure; I11.0 Hypertensive heart disease with heart failure; I45.10 Unspecified right bundle-branch block; I89.0 Lymphedema, not elsewhere classified; E66.01 Morbid (severe) obesity due to excess calories; E78.00 Pure hypercholesterolemia, unspecified; K59.00 Constipation, unspecified; E78.5 Hyperlipidemia, unspecified; G47.33 Obstructive sleep apnea (adult) (pediatric); I27.21 Secondary pulmonary arterial hypertension; I87.2 Venous insufficiency (chronic) (peripheral); J45.20 Mild intermittent asthma, uncomplicated; E11.40 Type 2 diabetes mellitus with diabetic neuropathy, unspecified; R65.20 Severe sepsis without septic shock; Z79.4 Long term (current) use of insulin; Z79.01 Long term (current) use of anticoagulants; Z79.899 Other long term (current) drug therapy; Z87.891 Personal history of nicotine dependence
CPT/HCPCS: 36415; 71045; 80048; 80053; 81001; 82962; 83605; 85025; 85610; 85730; 87040; 87086; 87088; 87426; 87449; 87635; 93005; 94640; 97802; 99284; J7030; J7050; A4216; J0696; U0002

== ENCOUNTER → 2020-11-05 10:28 | Outpatient (CLI) | payer BC, SELFPAY ==
[2020-11-05 09:33] VITALS: BMI 54.8
[2020-11-05 12:40] LABS: Hematocrit 34.6 % (40-54); Hemoglobin 10.6 g/dL (13.0-16.5); Mean Corp Hgb Conc 30.6 g/dL (32-36); Mean Corpuscular Hgb 25.1 pg (27.0-32.0); Mean Platelet Vol. 10.4 fl (6.2-12.0); Platelet Count 200 K/mm3 (150-450); RBC Distribution Width CV 17.1 % (11.6-14.6); RBC Distribution Width SD 49.9 fl (35.1-43.9); Red Blood Count 4.22 M/mm3 (4.6-6.2); White Blood Count 5.6 K/mm3 (4.4-11.0)
[2020-11-05 13:09] LABS: AST(SGOT) 24 U/L (15-37); Alanine Aminotransfer ALT/SGPT 32 U/L (16-61); Albumin, Serum 3.9 g/dL (3.2-5.0); Alkaline Phosphatase 62 U/L (45-117); Anion Gap 7 (5-15); BUN 16 mg/dL (7-18); BUN/Creat Ratio 16.5 RATIO (10-20); Calcium,Total 8.9 mg/dL (8.5-10.1); Chloride 102 mmol/L (98-107); Cholesterol 83 mg/dL (200); Creatinine, Serum 0.97 mg/dL (0.70-1.30); EST Glomerular Filtration Rate 86 mL/min (>60); Est Glom Filt Rate - Afr Amer 104 mL/min (>60); Globulin 3.9 g/dL (2.2-4.2); Glucose 148 mg/dL (74-106); High Density Lipoprotein 28 mg/dL; Potassium 3.4 mmol/L (3.5-5.1); Protein, Total 7.8 g/dL (6.4-8.2); Sodium Level 137 mmol/L (136-145); Thyroid Stim Hormone (TSH) 3.22 uIU/mL (0.358-3.74); Triglycerides 135 mg/dL; Very Low Density Lipoprotein 27 mg/dL (5-40)
== END ==
PROVIDERS: PCP Family Medicine; Referring Provider Family Medicine; Visit Provider Family Medicine
DX: E11.69 Type 2 diabetes mellitus with other specified complication (principal); R18.8 Other ascites
CPT/HCPCS: 36415; 80053; 80061; 84443; 85027

== ENCOUNTER → 2020-11-08 07:50 | Outpatient (CLI) | payer BC, SELFPAY ==
[2020-11-05 09:33] VITALS: BMI 54.8
--- NOTE | 2020-11-08 07:55 | US_ITS ---
STUDY: ABDOMINAL ULTRASOUND REASON FOR EXAM: Male, 55 years old. Abdominal pain and distention TECHNIQUE: Transabdominal ultrasound was performed with real-time and static salomon scale imaging. TECHNICAL QUALITY: Limited. Examination limited due to obesity. COMPARISON: None. FINDINGS: Liver: The liver measures 27.2 cm. There is increased echogenicity consistent with fatty infiltration. The bile ducts are within normal limits. There is hepatic color flow. The direction of portal flow is hepatopetal. There is no demonstrated mass lesion. Portal vein measurement: Gallbladder: Distended gallbladder at 13.3 cm. The gallbladder wall measures 3.0 mm. There is a negative sonographic Narvaez''s sign. There is no pericholecystic fluid. There is biliary sludge dependent within the gallbladder. Common Bile Duct (C.B.D.): The common bile duct measures 3.3 mm. Pancreas: Normal size of the head, body and tail of the pancreas. There is increased echogenicity of the pancreas. There is no demonstrated pancreatic mass or cyst. Spleen: There is splenomegaly. The spleen measures 16.8 cm. Right Kidney: Normal size of the right kidney. The right kidney measures 12.9 x 7.0 x 6.4 cm. Normal renal cortex. . There is no demonstrated renal mass or cyst. There is no right hydronephrosis. Left Kidney: Normal size of the left kidney. The left kidney measures 13.8 x 6.6 x 7.2 cm. Normal renal cortex. . There is no demonstrated renal mass or cyst. There is no left hydronephrosis. Aorta: Tapers normally I.V.C.: The IVC is patent. There is mild ascites. US/Abdomen Complete IMPRESSION: Hepatomegaly with diffuse fatty induration of the liver, no discrete lesion Distended gallbladder with echogenic sludge but no sonographic evidence of cholecystitis Nonspecific splenomegaly Trace ascites Electronically Signed: Umesh Love MD at 10:46 EDT , Service support ,
== END ==
PROVIDERS: PCP Family Medicine; Referring Provider Family Medicine; Visit Provider Family Medicine
DX: R18.8 Other ascites (principal)
CPT/HCPCS: 76700

== ENCOUNTER → 2021-03-12 | Outpatient (CLI) | payer MEDICARE, SELFPAY | END | disposition home or self-care (01) | PROVIDERS: PCP Family Medicine; Visit Provider Family Medicine | DX: Z20.822 Contact with and (suspected) exposure to COVID-19 (principal) | CPT/HCPCS: 87635; U0005; U0003 ==

== ENCOUNTER 2021-05-28 10:52 | Outpatient (CLI) | payer MEDICAID, SELFPAY ==
[2021-05-28 13:14] LABS: Anion Gap 5 (5-15); BUN 17 mg/dL (7-18); BUN/Creat Ratio 17.6 RATIO (10-20); Calcium,Total 8.8 mg/dL (8.5-10.1); Chloride 99 mmol/L (98-107); Creatinine, Serum 0.97 mg/dL (0.70-1.30); EST Glomerular Filtration Rate 86 mL/min (>60); Est Glom Filt Rate - Afr Amer 104 mL/min (>60); Glucose 207 mg/dL (74-106); Potassium 3.9 mmol/L (3.5-5.1); Sodium Level 135 mmol/L (136-145)
== END 2021-05-28 23:59 | disposition home or self-care (01) ==
LOC: MFPLAB 10:58
PROVIDERS: PCP Family Medicine; Referring Provider Family Medicine; Visit Provider Family Medicine
DX: E11.59 Type 2 diabetes mellitus with other circulatory complications (principal)
CPT/HCPCS: 36415; 80048

== ENCOUNTER 2021-07-02 10:30 | Outpatient (RCR) | payer MEDICAID, SELFPAY | END 2021-07-10 23:59 | LOC: DC 10:30 | PROVIDERS: PCP Family Medicine; Referring Provider Family Medicine; Visit Provider Family Medicine | DX: E11.65 Type 2 diabetes mellitus with hyperglycemia (principal) | CPT/HCPCS: G0108 ==

== ENCOUNTER → 2021-08-07 | Outpatient (CLI) | payer MEDICAID, SELFPAY ==
--- NOTE | 2021-08-07 14:06 | CT_ITS ---
ACR Level 3 findings have been noted. An addendum which confirms receipt of the report will follow. EXAM: CT CHEST WITH INTRAVENOUS CONTRAST CLINICAL INDICATION: LUNG NODULE TECHNIQUE: Helically acquired images were obtained of the chest with intravenous contrast. This CT exam was performed using one or more of the following dose reduction techniques: automated exposure control, adjustment of the mA and/or kV according to patient size, and/or use of iterative reconstruction technique. This report was created using [employer] report generation technology. RADIATION DOSE: CTDIvol = 30.93 mGy, DLP = 1128.15 mGy-cmContrast: IV 100mL Isovue-300 COMPARISON: CTA chest July 03, 2019, reportedly prior smoker, there were several roughly 6 mm pleural-based or subpleural nodules reported on prior CT for which 12 month follow-up was recommended. FINDINGS: LUNGS AND PLEURAL SPACES: There is a new right basilar juxtapleural subdiaphragmatic nodular focus of roughly 1.8 cm x 1.4 cm x 1.7 cm, best seen on sagittal image #133 and coronal image #211. No mass. No pneumothorax. HEART: Moderate calcification in proximal left anterior descending coronary artery and mild calcification or stent in proximal right coronary artery normal heart size. No pericardial effusion. MEDIASTINUM: Mediastinal lipomatosis. Multiple but small mediastinal lymph nodes appear similar to prior exam and not suspicious by size criteria. Esophagus is unremarkable. No hiatal hernia. THYROID: Unremarkable. No thyroid lesions. BONES/JOINTS: Unremarkable. No suspicious lytic or blastic abnormality. VASCULATURE: Unremarkable. Thoracic aorta is non-dilated. No thoracic aortic dissection. No obvious central pulmonary embolism although this study was not performed with the pulmonary embolism protocol. OTHER FINDINGS: Question of faint groundglass-subsolid nodular focus of roughly 1 cm x 1 cm near the major fissure on axial image #67, there was a similar groundglass 8mm opacity in this location or adjacent to this region on prior axial image #138. Not confirmed to be nodule on the other series, slight irregular groundglass opacity. The other small juxtapleural nodules are resolved or not as well seen. CT/Chest WITH Contrast IMPRESSION: The only well seen pulmonary nodule is a juxtadiaphragmatic-juxtapleural nodular focus in the right lung base which is new compared to July 03, 2019 and measures 1.8 cm maximum diameter. Considerations include inflammatory nodule, small residual infiltrate or infarct, and lung neoplasm. The patient reportedly recently had ill-defined right upper and lower lobe opacities suspicious for multifocal pneumonia according to chest radiograph report from August 28, 2020, this may be a small residual infiltrate. Recommendation: Careful short-term follow-up or consideration for biopsy is needed. Consider biopsy or short-term 3 month follow-up considering the patient''s reported risk factors. Cannot exclude neoplasm. The most recent CT chest provided is from July 03, 2019. It would be very useful to compare to any interval chest CT if one is available. Electronically Signed: Rose Marie Diaz MD at 6:18 EDT ,
[2021-08-07 14:25] LABS: CREATININE FINGERSTICK 1.1 mg/dL (0.70-1.30); EGFR FINGERSTICK > 60.0000 mL/min (>60)
== END | disposition home or self-care (01) ==
LOC: CT 14:04
PROVIDERS: PCP Family Medicine; Referring Provider Family Medicine; Visit Provider Family Medicine
DX: R91.1 Solitary pulmonary nodule (principal)
CPT/HCPCS: 71260

== ENCOUNTER 2021-08-15 06:27 | Day surgery (SDC) | payer MEDICAID, SELFPAY ==
[2021-08-15] VITALS (7 sets, daily range): BP systolic 101–144; BP diastolic 55–76; PULSE 73–81; RESP 16–18; TEMP 36.5–36.6; O2SAT 94–99; BMI 56.8
[2021-08-15] MEDS: Lactated Ringers 1,000 ML 15 ML IV (06:35)
--- NOTE | 2021-08-15 06:41 | HP.PCM_ITS ---
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: No Is patient in pain?: No Allergies adhesive tape Allergy (Verified 07/21/21 14:13) Rash codeine Allergy (Verified 07/21/21 14:13) rash levofloxacin [From Levaquin] Allergy (Verified 07/21/21 14:13) hives and swelling oxycodone Allergy (Verified 07/21/21 14:13) hives Medications atorvastatin 10 mg PO QHS 01/29/15 [History Confirmed 07/21/21] lisinopril 5 mg PO DAILY 01/29/15 [History Confirmed 07/21/21] betaxolol 10 mg PO DAILY 03/03/17 [History Confirmed 07/21/21] metformin 1,000 mg PO BID 03/03/17 [History Confirmed 07/21/21] meclizine 25 mg tablet 25 mg PO DAILY PRN 8 Days #32 tab 08/08/18 [History Confirmed 07/21/21] vitamin B complex 1 tab PO DAILY 08/08/18 [History Confirmed 07/21/21] albuterol sulfate 90 mcg/actuation aerosol inhaler 2 puff INHALATION Q4H PRN g 12/19/18 [History Confirmed 07/21/21] Triamcinolone 0.1% Cream [Kenalog] 1 applic TOPICAL BID PRN 03/14/19 [History Confirmed 07/21/21] fluticasone propionate 2 spray NASAL DAILY PRN 03/14/19 [History Confirmed 07/21/21] insulin glargine U-300 conc 60 units SQ BID 03/14/19 [History Confirmed 07/21/21] gabapentin 300 mg PO BIDCM 06/04/19 [History Confirmed 07/21/21] glimepiride 4 mg PO DAILY 06/04/19 [History Confirmed 07/21/21] furosemide 40 mg tablet 80 mg PO BREAKFAST tab 05/07/20 [History Confirmed 07/21/21] Centrum Silver Men 1 tab PO DAILY 08/28/20 [History Confirmed 07/21/21] furosemide 40 mg PO QHS 08/28/20 [History Confirmed 07/21/21] omega-3 fatty acids 1,000 mg PO DAILY 08/28/20 [History Confirmed 07/21/21] warfarin 11 mg PO DINNER 08/28/20 [History Confirmed 07/21/21] montelukast 10 mg tablet 10 mg PO QHS #30 tab 01/06/21 [Rx Confirmed 07/21/21] fluticasone fur. 200 mcg-umeclid 62.5 mcg-vilant 25 mcg inhalat.powder 1 inh INHALATION DAILY #60 ea 02/05/21 [Rx Confirmed 07/21/21] diltiazem HCl 240 mg capsule,24 hr,extended release 240 mg PO DAILY #30 cap 06/09/21 [Rx Confirmed 07/21/21] [facility] Medical History Asthma Cellulitis of right leg COPD (chronic obstructive pulmonary disease) COPD exacerbation Diabetes Essential (primary) hypertension Exogenous obesity Hematuria History of abdominal paracentesis Hypercholesteremia Longstanding persistent atrial fibrillation Lymphedema Mild intermittent asthma Morbid obesity due to excess calories Neuropathy Obstructive sleep apnea MILAGRO (obstructive sleep apnea) Right bundle branch block (RBBB) Sciatica Seasonal allergies Secondary pulmonary arterial hypertension Shortness of breath Super-super obese Swelling of lower limb Type 2 diabetes mellitus Venous hypertension, chronic Venous hypertension, chronic, with ulcer and inflammation Venous insufficiency Venous ulcer of right leg Surgical History History of meatotomy of ureter Family History Mother Breast cancer Father Prostate cancer Social History Smoking Status: Former smoker how long ago did patient quit smokin years alcohol intake: never substance use type: does not use caffeine: No HPI HPI HPI: MARIA DE JESUS ROSARIO, is a 55 M who presents to the office today for colonoscopy. The patient does not note any blood in the stool. He does not have any family history of colon cancer except for his grandfather. Patient has never had a screening colonoscopy. He is not having any abdominal pain. ROS General General: Yes weight change; No appetite, fatigue, colon cancer, breast cancer or weakness HEENT HEENT: No difficulty swallowing, eye injury, eye surgery, swollen glands or hoarseness Endo Endocrine: Yes diabetes mellitus; No thyroid disease, thyroid cancer, Hair loss, heat intolerance or cold intolerance Skin Skin: Yes rash; No changing moles Breast Breast: No left breast lump, right breast lump, nipple discharge, breast pain, abnormal mammogram, abnormal US or breast enlargement Musc Musculoskeletal: Yes arthritis; No back problems, rheumatoid arthritis, gout or joint pain Cardio Cardiovascular: Yes heart disease, atrial fibrillation and high blood pressure; No murmur, pacemaker, heart attack, heart stent, palpitations, shortness of breat with exertion or chest pain Psych Psychiatric: No depression, anxiety or hearing voices Resp Respiratory: Yes shortness of breath, Yes sleep apnea, No cough, Yes COPD, Yes asthma, No emphysema and No wheezing Gastro Gastrointestinal: No abdominal pain, No nausea or vomiting, Yes diarrhea, No constipation, No blood in stool, No acid reflux, Yes hemorrhoids, No ulcers, No gallbladder problem and No black,tarry stools Julius Hematologic: Yes blood thinners, No blood disorders, No bleeding, No anemia and No blood clots Neuro Neurologic: No system reviewed and no additional complaints, except as documented, No as per HPI, No abnormal gait, No abnormal hearing, No abnormal movements, No abnormal speech, No behavioral changes, No burning sensations, No confusion, No convulsions, No disequilibrium, No dizziness, No localized weakness, No frequent falls, No headache(s), No lack of coordination, No loss of vision, No memory loss, Yes numbness, No other visual disturbances, No radicular pain, No restless legs, No sensory deficit, No syncope, Yes tingling, No tremor(s), No weakness and No other Exam Const General: cooperative Orientation: alert and oriented x3 HENMT Head: normal to inspection Neck Neck: normal visual inspection and full ROM Chest Chest palpation & inspection: normal inspection of the chest Resp Effort & Inspection: normal respiratory effort Auscultation: clear to auscultation bilaterally Cardio Rate: regular rate Rhythm: regular rhythm GI Inspection: non-distended Palpation: soft and nontender Skin General: no rashes or lesions noted Neuro General: patient alert and patient oriented x3 Extrem General: full ROM Psych Appearance: grossly normal Mental Status: mental status grossly normal Assessment and Plan Assessment and Plan (1) Screen for colon cancer: Status: Acute Plan - Dr. Artis Landis MD: Patient requires screening colonoscopy. I will asked the patient to hold his Coumadin for 5 days prior to the procedure. I explained endoscopy in detail to the patient. I explained the risks including but not limited to stroke or heart attack with anesthesia, perforation of the GI tract, bleeding, infection. I explained that any of these could necessitate further emergency surgery. The patient understands and all questions were answered sufficiently. The patient wishes to proceed with procedure. Artis Landis MD Pager: [facility] [address] [place] [address], [address] [place] [address] Office: I have seen and reexamined the patient and there are no changes
[2021-08-15 07:35] LABS: INR Fingerstick 1.2; Prothrombin Time Fingerstick 14.9 SEC (11.7-14.9)
--- NOTE | 2021-08-15 08:44 | OP.COLON_ITS ---
Patient Name: Rafael Ruiz Procedure Date: 08/15/2021 7:45 AM Date of : 1965 Age: 56 Procedure: Colonoscopy Indications: Screening for colorectal malignant neoplasm Providers: Artis Landis MD Referring MD: Al Mondragon Medicines: Monitored Anesthesia Care Patient Profile: This is a 56 year old male. Refer to note in patient chart for documentation of history and physical. Last Colonoscopy: none. The patient's first colonoscopy is today. Complications: No immediate complications. Procedure: Pre-Anesthesia Assessment: - Prior to the procedure, a History and Physical was performed, and patient medications and allergies were reviewed. The patient's tolerance of previous anesthesia was also reviewed. The risks and benefits of the procedure and the sedation options and risks were discussed with the patient. All questions were answered, and informed consent was obtained. Prior Anticoagulants: The patient has taken Coumadin (warfarin), last dose was 5 days prior to procedure. After reviewing the risks and benefits, the patient was deemed in satisfactory condition to undergo the procedure. After I obtained informed consent, the scope was passed under direct vision. Throughout the procedure, the patient's blood pressure, pulse, and oxygen saturations were monitored continuously. The pediatric colonoscope was introduced through the anus and advanced to the cecum, identified by appendiceal orifice and ileocecal valve. The colonoscopy was performed without difficulty. The patient tolerated the procedure well. The quality of the bowel preparation was good. Scope In: 7:51:00 AM Scope Withdrawal Time 0 hours 6 minutes 19 seconds Scope Out: 8:02:37 AM Total Procedure Duration Time 0 hours 11 minutes 37 seconds Findings: The entire examined colon appeared normal on direct and retroflexion views. Impression: - The entire examined colon is normal on direct and retroflexion views. - No specimens collected. Recommendation: - Discharge patient to home. - Resume previous diet. - Continue present medications. - Repeat colonoscopy in 10 years for screening purposes. - Resume Coumadin (warfarin) at prior dose tomorrow. Procedure Code(s): --- Professional --- 42536, Colonoscopy, flexible; diagnostic, including collection of specimen(s) by brushing or washing, when performed (separate procedure) Diagnosis Code(s): --- Professional --- Z12.11, Encounter for screening for malignant neoplasm of colon CPT copyright 2017 [employer]. All rights reserved. The codes documented in this report are preliminary and upon professional fee coder review may be revised to meet current compliance requirements. Artis Landis MD 08/15/2021 8:43:51 AM This report has been signed electronically. Number of Addenda: 0 Note Initiated On: 08/15/2021 7:45 AM
--- NOTE | 2021-08-15 08:45 | OP.CCLET_ITS ---
08/15/2021 Al Mondragon [address] [place] [address] Re : Colonoscopy procedure for Rafael Ruiz Dear Dr. Mondragon This procedure was performed on Sunday, August 15, 2021. My impressions and recommendations are as follows: Impressions : - The entire examined colon is normal on direct and retroflexion views. - No specimens collected. Recommendations : - Discharge patient to home. - Resume previous diet. - Continue present medications. - Repeat colonoscopy in 10 years for screening purposes. - Resume Coumadin (warfarin) at prior dose tomorrow. My findings are described in the full procedure note, which is enclosed. If I can be of further assistance, please feel free to contact me at Doctor phone number(s): , Work: . Sincerely, Artis Landis MD 08/15/2021 8:43:51 AM This report has been signed electronically.
[2021-08-15 08:50] LABS: Bedside Glucose 121 mg/dL (74-106)
== END 2021-08-15 08:50 | disposition home or self-care (01) ==
LOC: EN 06:28 → AC 06:28
PROVIDERS: PCP Family Medicine; Referring Provider Family Medicine; Visit Provider Surgery
PROC: 0DJD8ZZ Inspection of Lower Intestinal Tract, Via Natural or Artificial Opening Endoscopic (ICD-10-PCS; CPT 45378; principal; 2021-08-15 07:25)
DX: Z12.11 Encounter for screening for malignant neoplasm of colon (principal); J44.9 Chronic obstructive pulmonary disease, unspecified; I27.21 Secondary pulmonary arterial hypertension; E11.40 Type 2 diabetes mellitus with diabetic neuropathy, unspecified; I48.11 Longstanding persistent atrial fibrillation; Z68.43 Body mass index [BMI] 50.0-59.9, adult; I10 Essential (primary) hypertension; Z79.84 Long term (current) use of oral hypoglycemic drugs; Z87.891 Personal history of nicotine dependence; E78.00 Pure hypercholesterolemia, unspecified; E66.09 Other obesity due to excess calories; Z79.899 Other long term (current) drug therapy; G47.33 Obstructive sleep apnea (adult) (pediatric); Z87.442 Personal history of urinary calculi
CPT/HCPCS: 45378; 36416; 82962; 85610; 87426; C9803; J7120; J2405

== ENCOUNTER → 2021-10-14 | Outpatient (CLI) | payer MEDICAID, SELFPAY ==
--- NOTE | 2021-10-14 14:38 | CT_ITS ---
STUDY: CT CHEST WITHOUT CONTRAST REASON FOR EXAM: Male, 56 years old. Follow-up for pulmonary nodule. RADIATION DOSAGE (If Supplied By Facility): CTDIvol = ( 27.94 ) mGy, DLP = ( 1316.91 ) mGycm TECHNIQUE: Transaxial imaging was performed without the administration of intravenous contrast material. Multiplanar coronal and sagittal images were reformatted. Individualized dose optimization techniques were used for this CT. COMPARISON: Comparison is made with prior study dated 08/07/2021. FINDINGS: CHEST Essentially stable nodular density in the right lower lobe adjacent to the right hemidiaphragm. It presently measures 1.4 size by 1.2 cm. There is a new small left pleural effusion with a infiltration in the posterior medial segment of the right lower lobe. There are calcifications of the coronary arteries. There are multiple small lymph nodes within the mediastinum, which are normal in size and morphology most compatible with reactive lymph hyperplasia. Normal hilar regions. Normal unenhanced pulmonary arteries. There is atherosclerotic calcification of the aortic arch with tortuosity and elongation of the aortic arch and descending thoracic aorta. There are multi-level degenerative changes of the thoracic spine. There is no demonstrated abnormality of the visualized upper abdomen. CT/Chest without Contrast IMPRESSION: Stable appearance of the nodular density in the right lower lobe adjacent to the right hemidiaphragm. New small right pleural effusion with infiltration the posterior medial segment of the right lower lobe. Electronically Signed: Joaquin Bergeron MD at 15:26 EDT ,
== END | disposition home or self-care (01) ==
PROVIDERS: PCP Family Medicine; Referring Provider Nurse Practitioner Acute Care; Visit Provider Nurse Practitioner Acute Care
DX: R91.1 Solitary pulmonary nodule (principal)
CPT/HCPCS: 71250

== ENCOUNTER → 2021-10-15 | Outpatient (CLI) | payer MEDICAID, SELFPAY ==
[2021-10-15 17:39] LABS: Hematocrit 38.7 % (40-54); Mean Corpuscular Hgb 26.1 pg (27.0-32.0); Mean Corpuscular Volume 84.3 fL (80-94); Mean Platelet Vol. 10.3 fl (6.2-12.0); Platelet Count 174 K/mm3 (150-450); RBC Distribution Width CV 17.4 % (11.6-14.6); RBC Distribution Width SD 53.1 fl (35.1-43.9); Red Blood Count 4.59 M/mm3 (4.6-6.2); White Blood Count 6.3 K/mm3 (4.4-11.0)
[2021-10-15 17:58] LABS: Vitamin B12 1469 pg/mL (211-911)
[2021-10-15 18:09] LABS: ALB/GLOB Ratio 1.1 RATIO (0.9-2.4); AST(SGOT) 25 U/L (15-37); Alanine Aminotransfer ALT/SGPT 29 U/L (16-61); Albumin, Serum 4.1 g/dL (3.2-5.0); Alkaline Phosphatase 60 U/L (45-117); Anion Gap 4 (5-15); BUN 13 mg/dL (7-18); BUN/Creat Ratio 12.5 RATIO (10-20); Chloride 101 mmol/L (98-107); Cholesterol 100 mg/dL (200); Creatinine, Serum 1.04 mg/dL (0.70-1.30); EST Glomerular Filtration Rate 79 mL/min (>60); Est Glom Filt Rate - Afr Amer 95 mL/min (>60); Globulin 3.8 g/dL (2.2-4.2); Glucose 140 mg/dL (74-106); High Density Lipoprotein 29 mg/dL; Potassium 3.7 mmol/L (3.5-5.1); Protein, Total 7.9 g/dL (6.4-8.2); Sodium Level 138 mmol/L (136-145); Triglycerides 146 mg/dL; Very Low Density Lipoprotein 29 mg/dL (5-40)
== END | disposition home or self-care (01) ==
LOC: MFPLAB 15:30
PROVIDERS: PCP Family Medicine; Visit Provider Family Medicine
DX: E11.65 Type 2 diabetes mellitus with hyperglycemia (principal); I27.20 Pulmonary hypertension, unspecified
CPT/HCPCS: 36415; 80053; 80061; 82607; 85027

== ENCOUNTER → 2021-12-23 | Outpatient (CLI) | payer MEDICAID, SELFPAY ==
--- NOTE | 2021-12-23 14:30 | RAD_ITS ---
STUDY: XR Ankle Min 3 Views REASON FOR EXAM: Male, 56 years old. ANKLE PAIN TECHNIQUE: XR Ankle Min 3 Views LEFT COMPARISON: None. FINDINGS: Normal visualized distal tibia and fibula. Normal medial and lateral malleoli. Normal tibiotalar articulation and ankle mortise. There is an enthesophyte involving the posterior superior calcaneus at the site of insertion of the Achilles tendon. The visualized subtalar, talonavicular, calcaneocuboid and tarsal articulations are normal. There is a plantar calcaneal spur. There is soft tissue swelling around the ankle. RAD/Ankle min 3 Views IMPRESSION: There is soft tissue swelling. Electronically Signed: Jesus Goodrich MD at 16:56 EDT ,
[2021-12-23 18:09] LABS: Erythrocyte Sedimentation Rate 41 mm/hr (0-20)
[2021-12-23 18:11] LABS: Absolute Lymphocyte Count 0.83 X10^3/uL (0.83-4.51); Absolute Neutrophil Count 6.3 X10^3/uL (2.0-7.7); Basophil# 0.07 X10^3/uL; Basophil% 0.8 % (0-1); Eosinophil# 0.35 X10^3/uL; Eosinophils% 4.2 % (0-5); Hematocrit 39.7 % (40-54); Hemoglobin 12.2 g/dL (13.0-16.5); Lymphocyte # 0.83 X10^3/ul (0.83-4.51); Mean Corp Hgb Conc 30.7 g/dL (32-36); Mean Corpuscular Hgb 25.9 pg (27.0-32.0); Mean Corpuscular Volume 84.3 fL (80-94); Mean Platelet Vol. 10.8 fl (6.2-12.0); Monocyte# 0.75 X10^3/uL; NRBC Flagged by Analyzer 0 % (0-5); Neutrophil # 6.27 X10^3/uL (2.7-7.7); Neutrophil % 75.5 % (47-70); Platelet Count 203 K/mm3 (150-450); RBC Distribution Width CV 17.9 % (11.6-14.6); Red Blood Count 4.71 M/mm3 (4.6-6.2); White Blood Count 8.3 K/mm3 (4.4-11.0)
[2021-12-23 18:44] LABS: Anion Gap 8 (5-15); BUN 16 mg/dL (7-18); BUN/Creat Ratio 15.2 RATIO (10-20); Calcium,Total 9.3 mg/dL (8.5-10.1); Chloride 101 mmol/L (98-107); Creatinine, Serum 1.05 mg/dL (0.70-1.30); EST Glomerular Filtration Rate 78 mL/min (>60); Est Glom Filt Rate - Afr Amer 94 mL/min (>60); Glucose 204 mg/dL (74-106); Potassium 3.8 mmol/L (3.5-5.1); Sodium Level 137 mmol/L (136-145); Uric Acid 11.2 mg/dL (3.5-7.2)
== END | disposition home or self-care (01) ==
LOC: MTLAB 14:26
PROVIDERS: PCP Family Medicine; Referring Provider Family Medicine; Visit Provider Family Medicine
DX: M25.572 Pain in left ankle and joints of left foot (principal)
CPT/HCPCS: 36415; 73610; 80048; 84550; 85025; 85652; 86140

== ENCOUNTER 2022-02-26 11:44 | Outpatient (CLI) | payer MEDICAID, SELFPAY ==
[2022-02-26 15:12] LABS: Uric Acid 9.1 mg/dL (3.5-7.2)
== END 2022-02-26 23:59 | disposition home or self-care (01) ==
LOC: MFPLAB 11:45
PROVIDERS: PCP Family Medicine; Referring Provider Family Medicine; Visit Provider Family Medicine
DX: M10.9 Gout, unspecified (principal)
CPT/HCPCS: 36415; 84550

== ENCOUNTER → 2022-04-29 | Outpatient (CLI) | payer MEDICAID, SELFPAY ==
[2022-04-29 12:29] LABS: Hematocrit 40.3 % (40-54); Hemoglobin 12.1 g/dL (13.0-16.5); Mean Corpuscular Hgb 25.5 pg (27.0-32.0); Mean Platelet Vol. 10.2 fl (6.2-12.0); Platelet Count 202 K/mm3 (150-450); RBC Distribution Width CV 18.8 % (11.6-14.6); RBC Distribution Width SD 56.5 fl (35.1-43.9); Red Blood Count 4.74 M/mm3 (4.6-6.2); White Blood Count 5.7 K/mm3 (4.4-11.0)
[2022-04-29 13:06] LABS: BNP,B-Type NATRIURETIC PEPTIDE 41.1 pg/mL (0-100)
[2022-04-29 13:25] LABS: Anion Gap 10 (5-15); BUN 16 mg/dL (7-18); BUN/Creat Ratio 15.2 RATIO (10-20); Chloride 100 mmol/L (98-107); Creatinine, Serum 1.05 mg/dL (0.70-1.30); EST Glomerular Filtration Rate 78 mL/min (>60); Est Glom Filt Rate - Afr Amer 94 mL/min (>60); Glucose 102 mg/dL (74-106); PSA,Total - Annual Screen 1.62 ng/mL (0.00-4.00); Potassium 3.6 mmol/L (3.5-5.1); Sodium Level 141 mmol/L (136-145); Uric Acid 8.5 mg/dL (3.5-7.2)
== END | disposition home or self-care (01) ==
LOC: MFPLAB 11:20
PROVIDERS: PCP Family Medicine; Visit Provider Family Medicine
DX: Z12.5 Encounter for screening for malignant neoplasm of prostate (principal); I27.20 Pulmonary hypertension, unspecified; M10.9 Gout, unspecified
CPT/HCPCS: 84153; 36415; 80048; 83880; 84550; 85027; G0103

== ENCOUNTER → 2022-05-07 | Outpatient (CLI) | payer MEDICAID, SELFPAY ==
--- NOTE | 2022-05-08 08:27 | PFT ---
INTRODUCTION: The patient is a 56-year-old male that presents for pulmonary function studies secondary to a diagnosis of COPD. Respiratory therapy reported that the patient was unable to lift his leg high enough to get into the body box to complete plethysmography. Bronchodilators were used during testing. INTERPRETATION: Forced expiration spirometry demonstrates the presence of a severe large airways obstructive ventilatory defect. There was no significant response to aerosolized bronchodilators. Spirograms are of good quality and plateau gradually indicating slow emptying of the lungs. Diffusing capacity by single breath CO is reduced to 65% of predicted. IMPRESSION: Irreversible severe large airways obstructive ventilatory defect with mild reduction in diffusing capacity. Lung volumes were unable to be obtained.
== END | disposition home or self-care (01) ==
PROVIDERS: PCP Family Medicine; Referring Provider Nurse Practitioner Acute Care; Visit Provider Nurse Practitioner Acute Care
DX: J44.9 Chronic obstructive pulmonary disease, unspecified (principal)
CPT/HCPCS: 94060; 94729

== ENCOUNTER → 2022-05-18 | Outpatient (CLI) | payer MEDICAID, SELFPAY | END | disposition home or self-care (01) | PROVIDERS: PCP Family Medicine; Visit Provider Nurse Practitioner Acute Care | DX: R91.1 Solitary pulmonary nodule (principal) | CPT/HCPCS: 94667 ==

== ENCOUNTER 2022-07-28 09:35 | Inpatient (IN) | payer MEDICAID, SELFPAY ==
[2022-07-28] VITALS (9 sets, daily range): BP systolic 125–171; BP diastolic 54–98; PULSE 66–91; RESP 16–32; TEMP 36.1–36.6; O2SAT 79–98; BMI 58.6; BMI 57.6
--- NOTE | 2022-07-28 09:56 | EKG12_ITS ---
Test Reason : SOB Blood Pressure : / mmHG Vent. Rate : 088 BPM Atrial Rate : 000 BPM P-R Int : 000 ms QRS Dur : 158 ms QT Int : 386 ms P-R-T Axes : 000 069 008 degrees QTc Int : 467 ms Atrial fibrillation Right bundle branch block T wave abnormality, consider lateral ischemia Abnormal ECG Confirmed by YARELY GARCIA, GLORIA ([id number]), supervising film or videotape editor SEMAJ VICKERS ([id number]) on 07/31/2022 2:26:02 PM Referred By: CHARBEL Confirmed By:GLORIA PRITCHETT MD
--- NOTE | 2022-07-28 09:56 | RAD_ITS ---
STUDY: X-RAY CHEST REASON FOR EXAM: Male, 56 years old. Shortness of breath TECHNIQUE: Single AP portable view of the chest. COMPARISON: Comparison is made with prior study dated August 28, 2020. FINDINGS: EKG electrodes are seen. Elevation of the right hemidiaphragm. There is evidence of vascular congestion and CHF with her blunting of both cause phrenic angles and the right basilar atelectasis and/or infiltrate. There is mild cardiac enlargement. Normal mediastinum and sky. Normal visualized pulmonary arteries. There is atherosclerotic calcification of the aortic arch with tortuosity. Normal visualized thoracic spine. Normal visualized ribs, clavicles, and shoulders. There is no demonstrated abnormality of the visualized soft tissue structures of the upper abdomen. RAD/Chest 1 View (Portable) IMPRESSION: Elevation of the right hemidiaphragm with CHF and right basilar infiltration and/or atelectasis. Blunting of the right costophrenic angle. Cardiomegaly. Electronically Signed: Joaquin Bergeron MD at 10:24 EDT ,
--- NOTE | 2022-07-28 09:57 | EDS_ITS ---
HPI History of Present Illness Chief Complaint: Shortness of Breath Narrative Narrative: 56-year-old male, past medical history of lymphedema, COPD, obstructive sleep apnea, asthma, hypertension, and obesity presents with shortness of breath for the last 3 to 4 weeks. He states his symptoms have been ongoing. He was seen by his primary care provider today and told to come to the emergency department because of the increasing shortness of breath. He was hypoxic and does not wear oxygen at home. He endorses a 12 pound weight gain over the last month or so. He has been drinking more liquids and attempt to lose weight. He states in the past he has required paracentesis because fluid builds up on his abdomen, but he denies history of congestive heart failure. He takes warfarin for atrial fibrillation. He states he also takes Lasix 80 mg twice a day. He denies any fevers or chills but has had increasing shortness of breath. [facility] Medical History Asthma BiPAP (biphasic positive airway pressure) dependence Cardiology follow-up encounter Cellulitis of right leg COPD (chronic obstructive pulmonary disease) COPD exacerbation Diabetes Essential (primary) hypertension Excessive bleeding Exogenous obesity Former smoker Hematuria High cholesterol History of abdominal paracentesis History of atrial fibrillation History of echocardiogram History of edema History of pain when walking History of stress test Hoarseness Hypercholesteremia Insulin dependent diabetes mellitus Kidney stones Leg cramps Longstanding persistent atrial fibrillation Lymphedema Mild intermittent asthma Morbid obesity due to excess calories Neuropathy Obstructive sleep apnea [place]RO (obstructive sleep apnea) Right bundle branch block (RBBB) Sciatica Seasonal allergies Secondary pulmonary arterial hypertension Shortness of breath Shortness of breath on exertion Sleep apnea Super-super obese Swelling of lower limb Type 2 diabetes mellitus Venous hypertension, chronic Venous hypertension, chronic, with ulcer and inflammation Venous insufficiency Venous ulcer of right leg Wears glasses Home Medications atorvastatin 10 mg tablet 10 mg PO QHS cholesterol 01/29/15 [History Last Taken 08/27/20] lisinopril 5 mg tablet 5 mg PO DAILY blood pressure 01/29/15 [History Last Taken 08/15/21] betaxolol 10 mg tablet 10 mg PO DAILY BP 03/03/17 [History Last Taken 08/15/21] metformin 1,000 mg tablet 1,000 mg PO BID diabetes 03/03/17 [History Last Taken 08/28/20] meclizine 25 mg tablet 25 mg PO DAILY PRN Vertigo 8 days #32 tabs 08/08/18 [History Last Taken Unknown] vitamin B complex (B Complex-Vitamin B12 tablet) 1 tab PO DAILY supplement 08/08/18 [History Last Taken 08/28/20] albuterol sulfate 90 mcg/actuation aerosol inhaler (ProAir HFA) 2 puff inhalation Q4H PRN shortness of breath or wheezing 12/19/18 [History Last Taken 06/03/19 19:30] Triamcinolone 0.1% Cream [Kenalog] 1 applic topical BID PRN Rash/Topical Irr itation 03/14/19 [History Last Taken Unknown] fluticasone propionate 50 mcg/actuation nasal spray,suspension 2 spray NASAL DAILY PRN Allergies 03/14/19 [History Last Taken Unknown] insulin glargine U-300 conc 300 unit/mL (1.5 mL) subcutaneous pen 60 units SQ BID diabetes 03/14/19 [History Last Taken 08/28/20] gabapentin 300 mg capsule 300 mg PO TID nerve pain 06/04/19 [History Last Taken 06/03/19 09:00] glimepiride 4 mg tablet 4 mg PO BID diabetes 06/04/19 [History Last Taken 08/28/20] qofizbxi-xse-rnxai acid 300 mcg-lycopene 600 mcg-lutein 300 mcg tablet (Centrum Silver Men) 1 tab PO DAILY supplement 08/28/20 [History Last Taken 08/28/20] warfarin 1 mg tablet 10 mg PO DINNER 08/28/20 [History Last Taken 08/09/21] furosemide 80 mg tablet 80 mg PO BID 11/19/21 [History Last Taken Unknown] fluticasone fur. 200 mcg-umeclid 62.5 mcg-vilant 25 mcg inhalat.powder (Trelegy Ellipta) 1 inh inhalation DAILY #60 ea 01/07/22 [Rx Last Taken Unknown] montelukast 10 mg tablet 10 mg PO QHS allergies #30 tabs 01/26/22 [Rx Last Taken Unknown] diltiazem HCl 240 mg capsule,24 hr,extended release 240 mg PO DAILY heart #30 caps 04/29/22 [Rx Last Taken Unknown] PEP device #1 ea 05/18/22 [Rx Last Taken Unknown] allopurinol 100 mg tablet 300 mg PO BID 05/18/22 [History Last Taken Unknown] guaifenesin 1,200 mg tablet, extended release 12 hr 1,200 mg PO Q12H #60 tabs 05/18/22 [Rx Last Taken Unknown] Allergy/AdvReac Type Severity Reaction Status Date / Time adhesive tape Allergy Rash Verified 07/28/22 09:42 codeine Allergy rash Verified 07/28/22 09:42 levofloxacin [From Levaquin] Allergy hives and Verified 07/28/22 09:42 swelling oxycodone Allergy hives Verified 07/28/22 09:42 Family History Mother Breast cancer Father Prostate cancer Surgical History History of cardiac catheterization History of meatotomy of ureter Social History Smoking Status: Former smoker how long ago did patient quit smokin years alcohol intake: never substance use type: does not use caffeine: No ROS ROS ED ROS Narrative Constitutional: No fever, no chills. 12 pound weight gain over the last month. HEENT: No sore throat. No neck pain. No loss of vision. No rhinorrhea. Cardiovascular: No chest pain. No palpitations. No pedal edema. Respiratory: No cough, increasing dyspnea on exertion and shortness of breath. Abdominal: No abdominal pain. No nausea. No vomiting. Increasing abdominal distention. Genitourinary: No dysuria. No hematuria. Musculoskeletal: No myalgias. No arthralgias. Neurologic: No headaches. No dizziness. No lightheadedness. Skin: No rash. No change in color. Psychiatric: No depression. No anxiety. EXAM Physical Exam Narrative Exam Narrative: Afebrile. Vital signs noted. HEENT: Normocephalic. Atraumatic. PERRL, EOMI. Neck soft and supple. No point tenderness or step off. Cardiovascular: Irregularly irregular rhythm, normal rate. No murmurs, rubs, or gallops appreciated. Respiratory: Mild tachypnea. Decreased breath sounds bilateral bases. Gastrointestinal: Abdomen soft, obese, distended, nontender, with normoactive bowel sounds. No rebound or guarding. Neurological: Awake. Alert. Nonfocal, nonlateralizing. Skin: No rash. Normal color. No pallor. Musculoskeletal: No pedal edema appreciated. Full range of motion extremities. Const Vital Signs: 07/28/22 09:36 07/28/22 09:41 07/28/22 09:54 Temperature 97.8 F Temperature Source Temporal Pulse Rate 81 91 Respiratory Rate 32 H 25 H Respiratory Effort Respiratory Depth Respiratory Pattern Blood Pressure 171/98 H Blood Pressure Mean 122 Pulse Ox 79 96 Oxygen Delivery Method Room Air Nasal Cannula Nasal Cannula Oxygen Flow Rate (L/min) 2 2 07/28/22 09:54 07/28/22 10:09 07/28/22 10:40 Temperature 98 F Temperature Source Temporal Pulse Rate 81 Respiratory Rate 23 H Respiratory Effort Short of Breath Labored Accessory Muscle Use Respiratory Depth Normal Respiratory Pattern Tachypnea Blood Pressure 164/93 H Blood Pressure Mean 116 Pulse Ox 96 96 Oxygen Delivery Method Nasal Cannula Nasal Cannula Nasal Cannula Oxygen Flow Rate (L/min) 2 2 2 07/28/22 10:40 07/28/22 12:00 07/28/22 12:00 Temperature 97.1 F L Temperature Source Temporal Pulse Rate 81 66 72 Respiratory Rate 23 H 28 H 23 H Respiratory Effort Respiratory Depth Respiratory Pattern Blood Pressure 137/68 H 137/68 H Blood Pressure Mean 91 91 Pulse Ox 96 95 97 Oxygen Delivery Method Nasal Cannula Nasal Cannula Nasal Cannula Oxygen Flow Rate (L/min) 2 2 2 MDM MDM MDM Narrative Medical decision making narrative: Patient is hypoxic on room air at 79%. He does not wear oxygen at home. He was placed on nasal cannula oxygen. Comprehensive work-up was pursued. I do feel that he may be having CHF exacerbation that is undiagnosed given his fluid buildup. I do not feel that an emergent paracentesis is indicated. I will obtain an EKG and chest x-ray to look for pneumonia and to look for any cardiac ischemia. EKG was obtained and interpreted by myself as atrial fibrillation with a right bundle branch block at 88 bpm without ectopy or acute ST changes, no significant change from previous EKG dated August 28, 2020 in review of that EKG. I reviewed his laboratory work and he has a normal white count of 6.2, hemoglobin 13.3, hematocrit normal at 44.3, platelet count normal at 192. He has slightly low potassium of 3.4 which I think is secondary to his Lasix use. This will be replaced orally. BUN is normal at 18, creatinine normal at 1.0, high- sensitivity troponin normal at 10, BNP is only 71.5, however on his chest x-ray that I interpreted he does have elevation of the right hemidiaphragm and what appears to be congestive heart failure. He had already requested to take his home medications so he took his 80 mg of Lasix orally. In review of the radiology report, there is infiltrate versus atelectasis and blunting of the right costophrenic angle. INR was reviewed and therapeutic at 2.0. Repeat examination shows him not to be in any respiratory distress currently at approximately 1310. Given his hypoxia and need for oxygen and reported abdominal distention, I do feel that he requires admission for CHF. He will be given Lasix 80 mg intravenously. I will discuss patient with the hospitalist. I discussed patient with Dr. Cardona, disposition is admit in stable condition. History & Record Review Discussion w/independent historian: Patient and Family Additional record(s) reviewed:: Prior outpatient record, Prior ED visit and Prior labs Lab Data Attestation: I reviewed the patient's lab results. Labs: Laboratory Results - last 24 hr 07/28/22 07/28/22 07/28/22 10:00 10:00 10:00 WBC 6.2 RBC 5.42 Hgb 13.3 Hct 44.3 MCV 81.7 MCH 24.5 L MCHC 30.0 L RDW Std Deviation 54.4 H RDW Coeff of Brina 18.8 H Plt Count 192 MPV 9.8 Immature Gran % (Auto) 0.300 Neut % (Auto) 73.1 H Lymph % (Auto) 10.1 L Park % (Auto) 11.9 H Eos % (Auto) 3.5 Baso % (Auto) 1.1 H Absolute Neuts (auto) 4.6 Absolute Lymphs (auto) 0.63 L Nucleated RBC % 0 PT INR Sodium 139 Potassium 3.4 L Chloride 104 Carbon Dioxide 33.0 H Anion Gap 2 L BUN 18 Creatinine 1.00 Estim Creat Clear Calc 91.61 Est GFR (MDRD) Af Amer 99 Est GFR (MDRD) Non-Af 82 BUN/Creatinine Ratio 18.0 Glucose 129 H Calcium 9.4 Troponin I High Sens 10 B-Natriuretic Peptide 71.5 07/28/22 10:00 WBC RBC Hgb Hct MCV MCH MCHC RDW Std Deviation RDW Coeff of Brina Plt Count MPV Immature Gran % (Auto) Neut % (Auto) Lymph % (Auto) Park % (Auto) Eos % (Auto) Baso % (Auto) Absolute Neuts (auto) Absolute Lymphs (auto) Nucleated RBC % PT 22.6 H INR 2.0 Sodium Potassium Chloride Carbon Dioxide Anion Gap BUN Creatinine Estim Creat Clear Calc Est GFR (MDRD) Af Amer Est GFR (MDRD) Non-Af BUN/Creatinine Ratio Glucose Calcium Troponin I High Sens B-Natriuretic Peptide Radiography Diagnostic Testing: Clinical Impression(s) from Imaging Studies Chest X-Ray 07/28/22 09:56 IMPRESSION: Elevation of the right hemidiaphragm with CHF and right basilar infiltration and/or atelectasis. Blunting of the right costophrenic angle. Cardiomegaly. Electronically Signed: Joaquin Bergeron MD at 10:24 EDT , Discharge Plan Dx/Rx/DC Orders Clinical Impression: SOB (shortness of breath), Hypoxia, CHF (congestive heart failure), Hypokalemia Disposition Disposition: Acute Care Hospital [facility]
[2022-07-28 10:07] LABS: Absolute Lymphocyte Count 0.63 X10^3/uL (0.83-4.51); Absolute Neutrophil Count 4.6 X10^3/uL (2.0-7.7); Basophil# 0.07 X10^3/uL; Basophil% 1.1 % (0-1); Eosinophil# 0.22 X10^3/uL; Eosinophils% 3.5 % (0-5); Hematocrit 44.3 % (40-54); Hemoglobin 13.3 g/dL (13.0-16.5); Lymphocyte # 0.63 X10^3/ul (0.83-4.51); Lymphocyte % 10.1 % (19-41); Mean Corpuscular Hgb 24.5 pg (27.0-32.0); Mean Corpuscular Volume 81.7 fL (80-94); Mean Platelet Vol. 9.8 fl (6.2-12.0); Monocyte# 0.74 X10^3/uL; Monocyte% 11.9 % (0-10); NRBC Flagged by Analyzer 0 % (0-5); Neutrophil # 4.56 X10^3/uL (2.7-7.7); Neutrophil % 73.1 % (47-70); Platelet Count 192 K/mm3 (150-450); RBC Distribution Width CV 18.8 % (11.6-14.6); RBC Distribution Width SD 54.4 fl (35.1-43.9); Red Blood Count 5.42 M/mm3 (4.6-6.2); White Blood Count 6.2 K/mm3 (4.4-11.0)
[2022-07-28 10:23] LABS: Anion Gap 2 (5-15); BUN 18 mg/dL (7-18); Calcium,Total 9.4 mg/dL (8.5-10.1); Chloride 104 mmol/L (98-107); EST Glomerular Filtration Rate 82 mL/min (>60); Est Glom Filt Rate - Afr Amer 99 mL/min (>60); Estimated Creatinine Clearance 91.61 ml/min; Glucose 129 mg/dL (74-106); Potassium 3.4 mmol/L (3.5-5.1); Sodium Level 139 mmol/L (136-145); Troponin-I HS 10 pg/mL (3.0-78.0)
[2022-07-28 10:28] LABS: Prothrombin Time (Protime)PT. 22.6 SECONDS (11.7-14.9)
[2022-07-28 10:43] LABS: BNP,B-Type NATRIURETIC PEPTIDE 71.5 pg/mL (0-100)
--- NOTE | 2022-07-28 13:16 | ED.RN ---
PATIENT STATES HE TOOK HIS 80MG OF LASIX AROUND 10-11AM THIS MORNING. THE ORDERED DOSE OF 80MG WAS WITHHELD AT TIME PER ORDERS OF DR. BARGER.
--- NOTE | 2022-07-28 13:20 | NURSING ---
PCU OLEGHE CHF, HYPOXIA, SHORTNESS OF BREATH
[2022-07-28] MEDS: Potassium Chloride Oral Tablet 20 MEQ 40 MEQ PO (13:53)
--- NOTE | 2022-07-28 14:31 | US_ITS ---
STUDY: ABDOMINAL ULTRASOUND - RIGHT UPPER QUADRANT REASON FOR VISIT: Male, 56 years old. Ascites. Possible cirrhosis. TECHNIQUE: Ultrasound evaluation of the right upper quadrant was performed with real-time and static salomon-scale imaging. TECHNICAL QUALITY: Examination limited due to obesity. COMPARISON: Abdominal ultrasound, November 08, 2020. FINDINGS: Liver: The liver measures 25.5 cm. There is normal echogenicity of the liver. There is a prominent left lateral lobe. The bile ducts are within normal limits. There is hepatic color flow. The direction of portal flow is hepatopetal. There is no demonstrated mass lesion. Gallbladder: There is a markedly distended gallbladder. The gallbladder wall measures 2 mm. There is a negative sonographic Narvaez''s sign. There is no pericholecystic fluid. There are no gallstones. Common Bile Duct (C.B.D.): The common bile duct measures 2.8 mm. Pancreas: Normal size of the head, body and proximal tail of the pancreas. The distal tail is obscured. There is normal echogenicity of the pancreas. There is no demonstrated pancreatic mass or cyst. Right Kidney: Normal size of the right kidney. The right kidney measures 11.0 cm. Normal renal cortex. The right cortex measures 1.5 cm. Echogenic focus in the lower pole measuring 6.6 x 3 mm which may represent a nonobstructing calculus. There is no right hydronephrosis. There are a small amount of ascites in the right upper quadrant. US/Liver IMPRESSION: 1. Hepatomegaly without focal mass. This appears unchanged. The hepatic steatosis seen on the prior study has resolved. 2. Distended gallbladder without gallstones or evidence of acute cholecystitis. 3. Question nonobstructing right renal calculus. Electronically Signed: Abdiel Haywood DO at 16:51 EDT ,
--- NOTE | 2022-07-28 14:31 | ECHOCS_ITS ---
Reason For Study: CHF Procedure This was a 2D Doppler, Color Flow transthoracic echocardiogram. The study was technically difficult. Contrast injection was performed. Exam performed portable in patient room. Left Ventricle Normal left ventricle. The estimated ejection fraction is 55-60 %. Right Ventricle Normal right ventricle. Atria Normal left atrium. Normal right atrium. Mitral Valve The mitral valve is structurally normal. No prolapse or stenosis seen. Trivial eccentric mitral valve insufficiency. Tricuspid Valve Normal tricuspid valve. Aortic Valve Normal aortic valve. Pulmonic Valve Normal pulmonic valve. Great Vessels Normal aortic root. Pericardium/Pleural No pericardial effusion. Medication Diluted definity 4ml given slow IV push to enhance endocardial definition. MMode/2D Measurements & Calculations LVIDd: 4.8 cm IVSd: 1.3 cm LA dimension: 5.0 cm LVIDs: 3.5 cm LVPWd: 1.3 cm FS: 27.6 % Doppler Measurements & Calculations MV E max sukhdeep: 110.7 cm/sec MV V2 max: 152.7 cm/sec PA V2 max: 112.5 cm/sec MV max P.3 mmHg MV V2 mean: 63.1 cm/sec MV mean P.2 mmHg MV V2 VTI: 39.9 cm TR max sukhdeep: 284.8 cm/sec TR max P.4 mmHg ECHO/Echo Complete W/ Contrast Interpretation Summary The estimated ejection fraction is 55-60 %. Within difference from previous echocardiogram February 2019 Contrast echo with Definity used. Ordering Physician: Vincent Cardona Performed By: Kenny Marcano RCS
--- NOTE | 2022-07-28 14:31 | EKG12_ITS ---
Test Reason : Blood Pressure : / mmHG Vent. Rate : 063 BPM Atrial Rate : 000 BPM P-R Int : 000 ms QRS Dur : 160 ms QT Int : 446 ms P-R-T Axes : 000 067 010 degrees QTc Int : 456 ms Atrial fibrillation Right bundle branch block T wave abnormality, consider lateral ischemia Abnormal ECG When compared with ECG of 28-JUL-2022 09:52, MANUAL COMPARISON REQUIRED, DATA IS UNCONFIRMED Confirmed by YARELY GARCIA, GLORIA ([id number]), news assignment editor MEGHANN PERALTA ([id number]) on 08/03/2022 12:39:14 PM Referred By: KATIA Confirmed By:GLORIA PRITCHETT MD
--- NOTE | 2022-07-28 15:45 | CT_ITS ---
INDICATION: Shortness of breath. EXAMINATION: CT CHEST WITHOUT CONTRAST - CT Chest W/O Contrast Injection TECHNIQUE: Helically acquired images were obtained of the chest. A radiation dose optimization technique was used for this scan. IV Contrast dosage and agent: None. COMPARISON: Chest, July 28, 2022. CT of the chest, October 14, 2021.. FINDINGS: LUNGS, PLEURA AND LARGE AIRWAYS: Large right pleural effusion with subsegmental atelectasis. There is no infiltrate or mass seen within the lungs. A small nodular density seen in the left lower lobe on the previous study is not appreciated. The right lower lobe nodular density described on the prior CT is not appreciated. No pneumothorax. THYROID: No thyroid lesions. HEART AND PERICARDIUM: The heart appears borderline enlarged. Normal pericardium. CORONARY ARTERIES: Coronary artery calcification are present VESSELS: Mild atherosclerotic changes of the thoracic aorta without aneurysm. Normal pulmonary arteries. MEDIASTINUM AND SAMAN: Nonspecific subcentimeter mediastinal lymphadenopathy. Normal saman. Esophagus is unremarkable. No hiatal hernia. UPPER ABDOMEN: Question cirrhotic liver with splenomegaly. There is no ascites. Right subphrenic space. BONES: Degenerative changes of the lumbar spine. There is no visualized fracture or dislocation. No lytic or blastic lesions are noted. CT/Chest without Contrast IMPRESSION: 1. Enlarging right pleural effusion when compared to the prior study. The nodules seen in the right lower lobe on the prior study is not appreciated on today''s exam. 2. Mild ascites. 3. Resolution of small nodular density in the left lower lobe seen on the prior study. 4. No other major interval change. Electronically Signed: Abdiel Haywood DO at 16:12 EDT Reading Location ID and State: [address] [place] [address] Tel [phone], Service support ,
[2022-07-28] MEDS: Furosemide 40 MG/4 ML Vial IV (15:57)
[2022-07-28] MEDS: 0.9% Saline Lock 10 ML Syringe IV (15:57)
--- NOTE | 2022-07-28 16:08 | NURSING ---
Patient has home blood sugar scanned on back of arm. Blood sugar at this time recorded 97
[2022-07-28] MEDS: Gabapentin 300 MG Capsule PO (20:50)
[2022-07-28] MEDS: Montelukast 10 MG Tablet PO (20:51)
[2022-07-28] MEDS: Allopurinol 300 MG Tablet PO (20:51)
[2022-07-28] MEDS: Atorvastatin Calcium 10 MG Tablet PO (20:51)
--- NOTE | 2022-07-28 21:39 | HP.PCM_ITS ---
[facility] - General General Date of Admission: 07/28/22 Date of Service: 07/28/22 Chief Complaint: Increasing shortness of breath and lower extremity swelling times several weeks HPI Narrative MARIA DE JESUS ROSARIO, is a 56 M with a history of COPD, morbid obesity, obstructive sleep apnea and mild pulmonary hypertension. Presented to hospital with several weeks history of increasing lower extremity swelling and abdominal swelling, shortness of breath and exertional dyspnea and easy fatigability. Denies any orthopnea or paroxysmal nocturnal dyspnea. Patient does use CPAP at nighttime and with naps. Patient does admit to dietary indiscretion with him pretty much living on fast foods either at [employer] or [employer] due to his challenging living arrangements. Recently moved in with his mother and states that this has now improved. He denies any chest pain or fever or chills. Denies any wheezing. A few years ago underwent paracentesis states about 3 L of liters removed. Patient denies any alcohol abuse. Has never been told he has liver disease. [facility] Medical History Asthma BiPAP (biphasic positive airway pressure) dependence Cardiology follow-up encounter Cellulitis of right leg COPD (chronic obstructive pulmonary disease) COPD exacerbation Diabetes Essential (primary) hypertension Excessive bleeding Exogenous obesity Former smoker Hematuria High cholesterol History of abdominal paracentesis History of atrial fibrillation History of echocardiogram History of edema History of pain when walking History of stress test Hoarseness Hypercholesteremia Insulin dependent diabetes mellitus Kidney stones Leg cramps Longstanding persistent atrial fibrillation Lymphedema Mild intermittent asthma Morbid obesity due to excess calories Neuropathy Obstructive sleep apnea MILAGRO (obstructive sleep apnea) Right bundle branch block (RBBB) Sciatica Seasonal allergies Secondary pulmonary arterial hypertension Shortness of breath Shortness of breath on exertion Sleep apnea Super-super obese Swelling of lower limb Type 2 diabetes mellitus Venous hypertension, chronic Venous hypertension, chronic, with ulcer and inflammation Venous insufficiency Venous ulcer of right leg Wears glasses Home Medications atorvastatin 10 mg tablet 10 mg PO QHS cholesterol 01/29/15 [History Last Taken 07/27/22] lisinopril 5 mg tablet 5 mg PO DAILY blood pressure 01/29/15 [History Last Taken 07/28/22] betaxolol 10 mg tablet 10 mg PO DAILY BP 03/03/17 [History Last Taken 07/28/22] metformin 1,000 mg tablet 1,000 mg PO BID diabetes 03/03/17 [History Last Taken 07/28/22] meclizine 25 mg tablet 25 mg PO DAILY PRN Vertigo 8 days #32 tabs 08/08/18 [History Last Taken 07/28/22] albuterol sulfate 90 mcg/actuation aerosol inhaler (ProAir HFA) 2 puff inhalation Q4H PRN shortness of breath or wheezing 12/19/18 [History Last Taken 06/03/19 19:30] fluticasone propionate 50 mcg/actuation nasal spray,suspension 2 spray NASAL DAILY PRN Allergies 03/14/19 [History Last Taken 07/27/22] insulin glargine U-300 conc 300 unit/mL (1.5 mL) subcutaneous pen (Toujeo SoloStar U-300 Insulin) 50 units SQ DAILY diabetes 03/14/19 [History Last Taken 07/25/22] gabapentin 300 mg capsule 300 mg PO TID nerve pain 06/04/19 [History Last Taken 07/28/22] glimepiride 4 mg tablet 4 mg PO DAILY diabetes 06/04/19 [History Last Taken 07/28/22] warfarin 1 mg tablet 10 mg PO DINNER 08/28/20 [History Last Taken 07/27/22] furosemide 80 mg tablet 80 mg PO BID 11/19/21 [History Last Taken 07/28/22] fluticasone fur. 200 mcg-umeclid 62.5 mcg-vilant 25 mcg inhalat.powder (Trelegy Ellipta) 1 inh inhalation DAILY #60 ea 01/07/22 [Rx Last Taken 07/28/22] montelukast 10 mg tablet 10 mg PO QHS allergies #30 tabs 01/26/22 [Rx Last Taken 07/27/22] diltiazem HCl 240 mg capsule,24 hr,extended release 240 mg PO DAILY heart #30 caps 04/29/22 [Rx Last Taken 07/28/22] PEP device #1 ea 05/18/22 [Rx Last Taken Unknown] IMMUNE DEFENCE 1 tab PO/SL DAILY SUPPLEMENT 07/28/22 [History Last Taken 07/27/22] [place] 3 1 tab PO/SL DAILY SUPPLEMENT 07/28/22 [History Last Taken 07/27/22] Probiotic 1 cap PO/SL DAILY SUPPLEMENT 07/28/22 [History Last Taken 07/27/22] Ubiquinol/Vitamin D 1 tab PO/SL DAILY SUPPLEMENT 07/28/22 [History Last Taken 0 07/27/22] allopurinol 300 mg tablet 300 mg PO QHS GOUT 07/28/22 [History Last Taken 07/27/22] insulin lispro 100 unit/mL subcutaneous pen (Humalog KwikPen (U-100) Insulin) 10 unit subcut TIDCM DM 07/28/22 [History Last Taken 07/25/22] triamcinolone acetonide 0.1 % topical cream 1 applic topical BID RASH 07/28/22 [History Last Taken 07/27/22] Allergy/AdvReac Type Severity Reaction Status Date / Time adhesive tape Allergy Rash Verified 07/28/22 09:42 codeine Allergy rash Verified 07/28/22 09:42 levofloxacin [From Levaquin] Allergy hives and Verified 07/28/22 09:42 swelling oxycodone Allergy hives Verified 07/28/22 09:42 Family History Mother Breast cancer Father Prostate cancer Surgical History History of cardiac catheterization History of meatotomy of ureter Social History Smoking Status: Former smoker how long ago did patient quit smokin years alcohol intake: never substance use type: does not use caffeine: No ROS ROS Narrative Denies any abdominal pain nausea vomiting. All other systems reviewed and essentially negative. Vital Signs Vital Signs Vital Signs: 07/28/22 09:36 07/28/22 09:41 07/28/22 09:54 Temperature 36.6 C Temperature Source Temporal Pulse Rate 81 91 Respiratory Rate 32 H 25 H Respiratory Effort Respiratory Depth Respiratory Pattern Blood Pressure 171/98 H Blood Pressure Mean 122 Blood Pressure Source Blood Pressure Position Blood Pressure Location Pulse Ox 79 96 Oxygen Delivery Method Room Air Nasal Cannula Nasal Cannula Oxygen Flow Rate (L/min) 2 2 07/28/22 09:54 07/28/22 10:09 07/28/22 10:40 Temperature 36.6 C Temperature Source Temporal Pulse Rate 81 Respiratory Rate 23 H Respiratory Effort Short of Breath Labored Accessory Muscle Use Respiratory Depth Normal Respiratory Pattern Tachypnea Blood Pressure 164/93 H Blood Pressure Mean 116 Blood Pressure Source Blood Pressure Position Blood Pressure Location Pulse Ox 96 96 Oxygen Delivery Method Nasal Cannula Nasal Cannula Nasal Cannula Oxygen Flow Rate (L/min) 2 2 2 07/28/22 10:40 07/28/22 12:00 07/28/22 12:00 Temperature 36.2 C L Temperature Source Temporal Pulse Rate 81 66 72 Respiratory Rate 23 H 28 H 23 H Respiratory Effort Respiratory Depth Respiratory Pattern Blood Pressure 137/68 H 137/68 H Blood Pressure Mean 91 91 Blood Pressure Source Blood Pressure Position Blood Pressure Location Pulse Ox 96 95 97 Oxygen Delivery Method Nasal Cannula Nasal Cannula Nasal Cannula Oxygen Flow Rate (L/min) 2 2 2 07/28/22 13:51 07/28/22 14:53 07/28/22 15:00 Temperature 36.6 C 36.4 C L Temperature Source Temporal Oral Pulse Rate 69 68 Respiratory Rate 18 16 Respiratory Effort Normal Non-Labored Respiratory Depth Normal Respiratory Pattern Normal Blood Pressure 125/54 H 137/77 H Blood Pressure Mean 77 97 Blood Pressure Source Monitor Blood Pressure Position Sitting Blood Pressure Location Right Forearm Pulse Ox 95 97 Oxygen Delivery Method Nasal Cannula Nasal Cannula Nasal Cannula Oxygen Flow Rate (L/min) 2 2 07/28/22 16:32 Temperature Temperature Source Pulse Rate Respiratory Rate Respiratory Effort Respiratory Depth Respiratory Pattern Blood Pressure Blood Pressure Mean Blood Pressure Source Blood Pressure Position Blood Pressure Location Pulse Ox 94 Oxygen Delivery Method Nasal Cannula Oxygen Flow Rate (L/min) 2 Weight Weight: 192.6 kg Body Mass Index (BMI) 57.6 Physical Exam Narrative General exam. Middle-aged man, very pleasant and friendly. Mildly dyspneic at rest, morbidly obese HEENT. Oral mucosa moist no pallor jaundice. Patient has telangiectasias on both cheeks. Neck. Neck is supple no significant jugular venous distention Heart. Heart sounds are quite distant Lungs. Diminished breath sounds in the bases. He does have bronchial breath sounds in the right mid and lower zones. Reduced breath sounds as well. Reduced vocal fremitus in these areas as well with some egophony. Abdomen. Large, anterior abdominal wall pitting edema 3+, dullness in the flanks on percussion. Shifting dullness maneuvers not performed due to small size of the bed. Sacral edema 3+. Extremities. Pitting pedal edema 3+ thighs. Patient has very good/effective compression stockings in the lower legs and so little to no edema here. 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 Results Medical Records Data Attestation: I reviewed the patient's medical records Lab / Micro Data Attestation: I reviewed the patient's lab results. Result Diagrams: 07/28/22 10:00 07/28/22 10:00 Labs: Laboratory Results - last 24 hr 07/28/22 10:00: WBC 6.2, RBC 5.42, Hgb 13.3, Hct 44.3, MCV 81.7, MCH 24.5 L, MCHC 30.0 L, RDW Std Deviation 54.4 H, RDW Coeff of Brina 18.8 H, Plt Count 192, MPV 9.8, Immature Gran % (Auto) 0.300, Neut % (Auto) 73.1 H, Lymph % (Auto) 10.1 L, [place] % (Auto) 11.9 H, Eos % (Auto) 3.5, Baso % (Auto) 1.1 H, Absolute Neuts (auto) 4.6, Absolute Lymphs (auto) 0.63 L, Nucleated RBC % 0 07/28/22 10:00: Sodium 139, Potassium 3.4 L, Chloride 104, Carbon Dioxide 33.0 H , Anion Gap 2 L, BUN 18, Creatinine 1.00, Estim Creat Clear Calc 91.61, Est GFR (MDRD) Af Amer 99, Est GFR (MDRD) Non-Af 82, BUN/Creatinine Ratio 18.0, Glucose 129 H, Calcium 9.4, Troponin I High Sens 10 07/28/22 10:00: B-Natriuretic Peptide 71.5 07/28/22 10:00: PT 22.6 H, INR 2.0 07/28/22 18:20: Ammonia 36.0 H Rhythm Strip Rhythm Strip: Sinus Rhythm Radiology Impression Chest X-Ray 07/28/22 09:56 IMPRESSION: Elevation of the right hemidiaphragm with CHF and right basilar infiltration and/or atelectasis. Blunting of the right costophrenic angle. Cardiomegaly. Electronically Signed: Joaquin Bergeron MD at 10:24 EDT , Liver Ultrasound 07/28/22 14:31 IMPRESSION: 1. Hepatomegaly without focal mass. This appears unchanged. The hepatic steatosis seen on the prior study has resolved. 2. Distended gallbladder without gallstones or evidence of acute cholecystitis. 3. Question nonobstructing right renal calculus. Electronically Signed: Abdiel Haywood DO at 16:51 EDT Reading Location ID and State: [facility] / [place] Tel [phone], Service support , Chest CT 07/28/22 15:45 IMPRESSION: 1. Enlarging right pleural effusion when compared to the prior study. The nodules seen in the right lower lobe on the prior study is not appreciated on today''s exam. 2. Mild ascites. 3. Resolution of small nodular density in the left lower lobe seen on the prior study. 4. No other major interval change. Electronically Signed: Abdiel Haywood DO at 16:12 EDT Reading Location ID and State: [address] [place] [address] Tel [phone], Service support , Assessment & Plan Assessment/Plan (1) CHF (congestive heart failure): PLAN: Plan Assessment and plan 1. Increasing shortness of breath and increasing lower extremity swelling. This appears to be potentially multifactorial. Suspect congestive heart failure (patient has risk factors) precipitated by dietary indiscretion and excessive salt intake, worsening pulmonary hypertension with cor pulmonale, development of cardiac cirrhosis or cirrhosis potentially due to nonalcoholic steatohepatitis (several metabolic risk factors). Clinically does not appear COPD is currently contributing to his symptoms. We will start patient on IV Lasix 40 mg every 12 hours, monitor electrolytes and renal function. We will do an ultrasound of the liver (rule out OLIVERA/cirrhosis) and abdomen and paracentesis if significant ascites is found. Repeat echocardiogram (last one done was about 3 years ago). Consult dietitian for dietary education. Chest CT to further evaluate abnormal lung examination and chest x-ray. 2. Morbid obesity. Lifestyle modifications as able. 3. Obstructive sleep apnea. Continue with CPAP. Patient may bring home machine. 4. Chronic atrial fibrillation. Rate is controlled. We will hold Coumadin for now in anticipation of any potential invasive procedures. When ready may just resume at home dose/regimen without need for bridging. Charges/Coding Visit Charges Inpatient E&M: 12909 Init Hosp L3
[2022-07-28] MEDS: Acetaminophen 325 MG Tablet 650 MG PO (22:32)
[2022-07-28] MEDS: MELATONIN 3 MG TABLET PO (23:17)
--- NOTE | 2022-07-29 01:01 | CPS ---
Pt is having trelogy inhaler in from home. Does not want nebulized meds.
--- NOTE | 2022-07-29 01:18 | CPS ---
Pt on own Cpap machine with 2L o2 bled into home unit.
[2022-07-29 02:32] VITALS: BMI 57.4
[2022-07-29 03:00] VITALS: BP 124/58; PULSE 64; RESP 18; TEMP 36.3; O2SAT 95
[2022-07-29 05:13] LABS: Absolute Lymphocyte Count 0.73 X10^3/uL (0.83-4.51); Absolute Neutrophil Count 4.5 X10^3/uL (2.0-7.7); Basophil# 0.06 X10^3/uL; Basophil% 0.9 % (0-1); Eosinophil# 0.33 X10^3/uL; Eosinophils% 5.1 % (0-5); Hematocrit 43.1 % (40-54); Hemoglobin 12.4 g/dL (13.0-16.5); Lymphocyte # 0.73 X10^3/ul (0.83-4.51); Lymphocyte % 11.4 % (19-41); Mean Corp Hgb Conc 28.8 g/dL (32-36); Mean Corpuscular Hgb 24.4 pg (27.0-32.0); Mean Corpuscular Volume 84.7 fL (80-94); Mean Platelet Vol. 10.4 fl (6.2-12.0); Monocyte# 0.81 X10^3/uL; Monocyte% 12.6 % (0-10); NRBC Flagged by Analyzer 0 % (0-5); Neutrophil # 4.47 X10^3/uL (2.7-7.7); Neutrophil % 69.5 % (47-70); Platelet Count 181 K/mm3 (150-450); RBC Distribution Width CV 18.6 % (11.6-14.6); RBC Distribution Width SD 55.8 fl (35.1-43.9); Red Blood Count 5.09 M/mm3 (4.6-6.2); White Blood Count 6.4 K/mm3 (4.4-11.0)
[2022-07-29 05:23] LABS: International Normalized Ratio 2.1; Prothrombin Time (Protime)PT. 23.2 SECONDS (11.7-14.9)
[2022-07-29 05:58] LABS: ALB/GLOB Ratio 1.1 RATIO (0.9-2.4); AST(SGOT) 18 U/L (15-37); Alanine Aminotransfer ALT/SGPT 20 U/L (16-61); Albumin, Serum 3.2 g/dL (3.2-5.0); Alkaline Phosphatase 52 U/L (45-117); Anion Gap 4 (5-15); BUN 17 mg/dL (7-18); BUN/Creat Ratio 19.4 RATIO (10-20); Chloride 104 mmol/L (98-107); Creatinine, Serum 0.88 mg/dL (0.70-1.30); EST Glomerular Filtration Rate 96 mL/min (>60); Est Glom Filt Rate - Afr Amer 116 mL/min (>60); Glucose 82 mg/dL (74-106); Potassium 3.6 mmol/L (3.5-5.1); Protein, Total 6.2 g/dL (6.4-8.2); Sodium Level 138 mmol/L (136-145); Thyroid Stim Hormone (TSH) 2.94 uIU/mL (0.358-3.74)
--- NOTE | 2022-07-29 08:36 | PCM.PN.HOSP ---
Reason for Visit Reason for Visit: Diagnoses Heart failure, unspecified (07/28/22) Subjective Subjective Taken off oxygen today. Complains of recurrent dizziness with head position, particular when he has his right head down while sleeping and has to move. Has progressively noted increased edema in his lower extremities where he actually measures a circumference of his thigh which would go from 32 to 37 inches. Patient is not able to weigh himself due to his large size not having a scale large enough to accommodate him. He has been told by his doctor that he can go to get his weight measured but that is been inconvenient to go to an office to get his weights. She does not know if his daily weights have gone up other than just measuring the size of his thighs. Does note increased edema on the underside of his pannus. Objective Data Objective Data Vital Signs: Vital Signs Temp Pulse Resp BP Pulse Ox O2 Del Method O2 Flow Rate 36.3 C L 64 18 124/58 H 95 Nasal Cannula 2 07/29/22 03:00 07/29/22 03:00 07/29/22 03:00 07/29/22 03:00 07/29/22 03:00 07/29/22 07:40 07/29/22 07:40 FiO2 92 07/29/22 07:40 Oxygen Flow Rate (L/min) 2 Oxygen Delivery Method Nasal Cannula Weight: 192.1 kg Body Mass Index (BMI) 57.4 Intake & Output: Intake and Output for Last 24 Hours 07/27/22 07/28/22 07/29/22 23:59 23:59 23:59 Intake Total 360 / 600 440 / 440 Output Total 450 / 1350 1250 / 1250 Balance -90 / -750 -810 / -810 Lab / Micro Data Result Diagrams: 07/29/22 04:18 07/29/22 04:18 Labs: Laboratory Results - last 24 hr 07/28/22 10:00: WBC 6.2, RBC 5.42, Hgb 13.3, Hct 44.3, MCV 81.7, MCH 24.5 L, MCHC 30.0 L, RDW Std Deviation 54.4 H, RDW Coeff of Brina 18.8 H, Plt Count 192, MPV 9.8, Immature Gran % (Auto) 0.300, Neut % (Auto) 73.1 H, Lymph % (Auto) 10.1 L, [place] % (Auto) 11.9 H, Eos % (Auto) 3.5, Baso % (Auto) 1.1 H, Absolute Neuts (auto) 4.6, Absolute Lymphs (auto) 0.63 L, Nucleated RBC % 0 07/28/22 10:00: Sodium 139, Potassium 3.4 L, Chloride 104, Carbon Dioxide 33.0 H, Anion Gap 2 L, BUN 18, Creatinine 1.00, Estim Creat Clear Calc 91.61, Est GFR (MDRD) Af Amer 99, Est GFR (MDRD) Non-Af 82, BUN/Creatinine Ratio 18.0, Glucose 129 H, Calcium 9.4, Troponin I High Sens 10 07/28/22 10:00: B-Natriuretic Peptide 71.5 07/28/22 10:00: PT 22.6 H, INR 2.0 07/28/22 18:20: Ammonia 36.0 H 07/29/22 04:18: WBC 6.4, RBC 5.09, Hgb 12.4 L, Hct 43.1, MCV 84.7, MCH 24.4 L, MCHC 28.8 L, RDW Std Deviation 55.8 H, RDW Coeff of Brina 18.6 H, Plt Count 181, MPV 10.4, Immature Gran % (Auto) 0.500, Neut % (Auto) 69.5, Lymph % (Auto) 11.4 L, [place] % (Auto) 12.6 H, Eos % (Auto) 5.1 H, Baso % (Auto) 0.9, Absolute Neuts (auto) 4.5, Absolute Lymphs (auto) 0.73 L, Nucleated RBC % 0 07/29/22 04:18: Sodium 138, Potassium 3.6, Chloride 104, Carbon Dioxide 30.0, Anion Gap 4 L, BUN 17, Creatinine 0.88, Estim Creat Clear Calc 104.10, Est GFR (MDRD) Af Amer 116, Est GFR (MDRD) Non-Af 96, BUN/Creatinine Ratio 19.4, Glucose 82, Calcium 9.0, Total Bilirubin 0.70, AST 18, ALT 20, Alkaline Phosphatase 52, Total Protein 6.2 L, Albumin 3.2, Globulin 3.0, Albumin/Globulin Ratio 1.1, TSH 2.94 07/29/22 04:18: PT 23.2 H, INR 2.1 Radiography Diagnostic Testing: Radiology Impression Chest X-Ray 07/28/22 09:56 IMPRESSION: Elevation of the right hemidiaphragm with CHF and right basilar infiltration and/or atelectasis. Blunting of the right costophrenic angle. Cardiomegaly. Electronically Signed: Joaquin Bergeron MD at 10:24 EDT , Liver Ultrasound 07/28/22 14:31 IMPRESSION: 1. Hepatomegaly without focal mass. This appears unchanged. The hepatic steatosis seen on the prior study has resolved. 2. Distended gallbladder without gallstones or evidence of acute cholecystitis. 3. Question nonobstructing right renal calculus. Electronically Signed: Abdiel Haywood DO at 16:51 EDT Reading Location ID and State: [facility] / [place] Tel [phone], Service support , Chest CT 07/28/22 15:45 IMPRESSION: 1. Enlarging right pleural effusion when compared to the prior study. The nodules seen in the right lower lobe on the prior study is not appreciated on today''s exam. 2. Mild ascites. 3. Resolution of small nodular density in the left lower lobe seen on the prior study. 4. No other major interval change. Electronically Signed: Abdiel Haywood DO at 16:12 EDT Reading Location ID and State: [facility] / [place] Tel [phone], Service support , Rhythm Strip Rhythm Strip: Sinus Rhythm Physical Exam Const alert and no apparent distress HEENT head/scalp atraumatic and moist oral mucous membranes Resp normal respiratory effort, no retractions, no use of accessory muscles and clear to auscultation bilaterally Cardio regular rate, regular rhythm, S1 normal heart sound and S2 normal heart sound GI normal to inspection, nondistended, normoactive bowel sounds, soft to palpation and non-tender GI Narrative: pannus with prominent edema on lower abdomen. Extremity no clubbing, cyanosis or edema Extremity Narrative: Lymphedematous changes on the lower extremities with prominent edema extending well up into his thighs. Compression stockings intact. Assessment & Plan Assessment/Plan (1) CHF (congestive heart failure): PLAN: Unclear type Increasing shortness of breath and increasing lower extremity swelling. This appears to be potentially multifactorial. Suspect congestive heart failure (patient has risk factors) precipitated by dietary indiscretion and excessive salt intake, worsening pulmonary hypertension with cor pulmonale, development of cardiac cirrhosis or cirrhosis potentially due to nonalcoholic steatohepatitis (several metabolic risk factors). Clinically does not appear COPD is currently contributing to his symptoms. IV Lasix 80 mg every 12 hours Repeat echocardiogram (last one done was about 3 years ago). Consult dietitian for dietary education. Chest CT shows right pleural effusion and ascites. (2) Vertigo: PLAN: chronic, recurrent sounds like BPPV has been on meclizine in past has never seen vestibular therapy. consult PT. PLAN: Plan Chronic conditions: Morbid obesity. Lifestyle modifications as able. Obstructive sleep apnea. Continue with CPAP. Patient may bring home machine. Chronic atrial fibrillation. Rate is controlled. We will hold Coumadin for now in anticipation of any potential invasive procedures. When ready may just resume at home dose/regimen without need for bridging. Hepatic steatosis: US showed hepatomegaly w/o focal mass. Hepatic steatosis appears resolved. Distended gallbladder or evidence of acute cholecystitis. VTE prophylaxis: anticoagulated. Charges/Coding Visit Charges Inpatient E&M: 80479 Subs Hosp L2
[2022-07-29 08:58] VITALS: BP 143/92; PULSE 79; RESP 18; TEMP 36.1; O2SAT 96
[2022-07-29] MEDS: Gabapentin 300 MG Capsule PO ×3 (09:02→21:50)
[2022-07-29] MEDS: Furosemide 40 MG/4 ML Vial IV ×2 (09:02→11:30)
[2022-07-29] MEDS: dilTIAZem CD 240 MG Capsule PO (09:02)
[2022-07-29] MEDS: Insulin Glargine-YFGN 100 UNIT/ML Pen 50 UNIT SC (09:02)
[2022-07-29] MEDS: Lisinopril 5 MG Tablet PO (09:02)
[2022-07-29] MEDS: Glimepiride 4 MG Tablet PO (09:03)
[2022-07-29 09:36] VITALS: O2SAT 86
[2022-07-29] MEDS: Acetaminophen 325 MG Tablet 650 MG PO ×2 (10:27→17:04)
--- NOTE | 2022-07-29 11:00 | CASEMGMT ---
[facility] [place] Face to Face with patient for initial transition planning/care coordination assessment. RN CM introduced self and role at [facility]. Patient lying in bed, alert and oriented. Patient willing to participate in assessment and is able to answer all questions appropriately. Care providers, pharmacy, and demographics verified. Patient wishes to discharge home, denies need for home health at this time. Patient states he has no further needs or concerns at this time. CM to follow for discharge planning needs that may arise. PCP: Giancarlo Specialists: José, boom conveyor operator; Han, carbon blocks press operator; Preferred Pharmacy: [facility] Insurance: [employer] Prescription Benefit: yes Living Will/HPOA: none LNOK: mother, sister Living Arrangements: Patient lives with mother in a 2 story home with bed and bath on first floor, 2 steps and railing to enter the home. Patient is independent at home. Transportation: self, mother DME/HHC: Patient has Bipap, nebulizer, pulse ox, glucometer with supplies. Patient prefers [employer] for DME as his bipap is supplied through them. No previous HHC or SNF. Disposition Plan: Patient to discharge home with family support and follow-up plans in place. Lou PIMENTEL, RN, CM
[2022-07-29] MEDS: FLUTICASONE/UMECLIDIN/VILANTER 1 EACH BLST.W.DEV INHALATION (11:30)
[2022-07-29 15:06] VITALS: BP 120/51; PULSE 55; RESP 18; TEMP 36.3; O2SAT 95
[2022-07-29] MEDS: Furosemide 100 MG/10 ML Vial 80 MG IV (16:57)
[2022-07-29 21:45] VITALS: BP 133/55; PULSE 77; RESP 17; TEMP 36.8; O2SAT 94
--- NOTE | 2022-07-29 21:48 | NURSING ---
pt blood sugar is 119 tonight, pt used own freestyle glucometer device.
[2022-07-29] MEDS: Allopurinol 300 MG Tablet PO (21:49)
[2022-07-29] MEDS: Montelukast 10 MG Tablet PO (21:49)
[2022-07-29] MEDS: Atorvastatin Calcium 10 MG Tablet PO (21:49)
[2022-07-29] MEDS: 0.9% Saline Lock 10 ML Syringe IV (21:50)
[2022-07-30 03:01] VITALS: BMI 57.2
[2022-07-30 03:43] VITALS: BP 128/68; PULSE 68; RESP 16; TEMP 36.6; O2SAT 96
[2022-07-30 05:10] LABS: Anion Gap 1 (5-15); BUN 20 mg/dL (7-18); BUN/Creat Ratio 21.8 RATIO (10-20); Chloride 103 mmol/L (98-107); Creatinine, Serum 0.92 mg/dL (0.70-1.30); EST Glomerular Filtration Rate 91 mL/min (>60); Est Glom Filt Rate - Afr Amer 110 mL/min (>60); Estimated Creatinine Clearance 99.58 ml/min; Glucose 95 mg/dL (74-106); Potassium 3.4 mmol/L (3.5-5.1); Sodium Level 137 mmol/L (136-145)
[2022-07-30 07:14] VITALS: O2SAT 96
[2022-07-30 07:54] LABS: Hemoglobin A1c 5.7 % (3.8-5.6)
--- NOTE | 2022-07-30 07:57 | PN.HOSP_ITS ---
Reason for Visit Reason for Visit: Diagnoses Heart failure, unspecified (07/28/22) Dizziness and giddiness (07/28/22) Subjective Subjective Notes decreased edema on underside of abdomen. That nurses that came to his room, his heart rate is dipping into the 30s while he was sleeping. Objective Data Objective Data Vital Signs: Vital Signs Temp Pulse Resp BP Pulse Ox O2 Del Method O2 Flow Rate 36.6 C 68 16 128/68 H 96 CPAP 2 07/30/22 03:43 07/30/22 03:43 07/30/22 03:43 07/30/22 03:43 07/30/22 03:43 07/30/22 03:45 07/29/22 21:45 FiO2 92 07/29/22 07:40 Oxygen Flow Rate (L/min) 2 Oxygen Delivery Method CPAP Weight: 191.2 kg Body Mass Index (BMI) 57.2 Intake & Output: Intake and Output for Last 24 Hours 07/28/22 07/29/22 07/30/22 23:59 23:59 23:59 Intake Total 360 / 600 1340 / 1340 Output Total 450 / 1350 5150 / 5150 0 / 0 Balance -90 / -750 -3810 / -3810 0 / 0 Lab / Micro Data Result Diagrams: 07/29/22 04:18 07/30/22 04:13 Labs: Laboratory Results - last 24 hr 07/30/22 04:13: Sodium 137, Potassium 3.4 L, Chloride 103, Carbon Dioxide 33.0 H , Anion Gap 1 L, BUN 20 H, Creatinine 0.92, Estim Creat Clear Calc 99.58, Est GFR (MDRD) Af Amer 110, Est GFR (MDRD) Non-Af 91, BUN/Creatinine Ratio 21.8 H, Glucose 95, Calcium 9.0 07/30/22 04:13: Hemoglobin A1c 5.7 H Radiography Diagnostic Testing: Radiology Impression Echocardiogram 07/28/22 14:31 Interpretation Summary The estimated ejection fraction is 55-60 %. Within difference from previous echocardiogram February 2019 Contrast echo with Definity used. Ordering Physician: Vincent Cardona Performed By: Kenny Marcano RCS Rhythm Strip Rhythm Strip: Sinus Rhythm Physical Exam Const alert and no apparent distress HEENT head/scalp atraumatic and moist oral mucous membranes Resp normal respiratory effort, no retractions, no use of accessory muscles and clear to auscultation bilaterally Cardio regular rate, regular rhythm, S1 normal heart sound and S2 normal heart sound GI normal to inspection, nondistended, normoactive bowel sounds, soft to palpation, non-tender and non-distended Extremity Extremity Narrative: compression stockings on LE. edema LE. Assessment & Plan Assessment/Plan (1) CHF (congestive heart failure): PLAN: acute HFpEF Clinically does not appear COPD is currently contributing to his symptoms. IV Lasix 80 mg every 12 hours Repeat echocardiogram shows EF 55-60% Consult dietitian for dietary education. Chest CT shows right pleural effusion and ascites. (2) Vertigo: PLAN: chronic, recurrent sounds like BPPV has been on meclizine in past has never seen vestibular therapy. consult PT. PLAN: Plan Chronic conditions: * Morbid obesity. Lifestyle modifications as able. * Obstructive sleep apnea. Continue with CPAP. Patient may bring home machine. * Chronic atrial fibrillation. Rate is controlled. We will hold Coumadin for now in anticipation of any potential invasive procedures. When ready may just resume at home dose/regimen without need for bridging. Note heart rate into the 30s but not clearly documented. Heart rate currently in the 70s. We will hold off any changes to his medications at this time. * Hepatic steatosis: US showed hepatomegaly w/o focal mass. Hepatic steatosis appears resolved. Distended gallbladder or evidence of acute cholecystitis. VTE prophylaxis: anticoagulated. Charges/Coding Visit Charges Inpatient E&M: 15368 Subs Hosp L2
[2022-07-30 09:50] VITALS: O2SAT 87
[2022-07-30 09:57] VITALS: BP 137/75; PULSE 77; RESP 16; TEMP 36.4; O2SAT 95
[2022-07-30] MEDS: dilTIAZem CD 240 MG Capsule PO (10:01)
[2022-07-30] MEDS: FLUTICASONE/UMECLIDIN/VILANTER 1 EACH BLST.W.DEV INHALATION (10:01)
[2022-07-30] MEDS: Glimepiride 4 MG Tablet PO (10:01)
[2022-07-30] MEDS: Lisinopril 5 MG Tablet PO (10:01)
[2022-07-30] MEDS: Acetaminophen 325 MG Tablet 650 MG PO ×2 (10:16→21:04)
[2022-07-30] MEDS: Gabapentin 300 MG Capsule PO ×3 (10:17→20:51)
[2022-07-30] MEDS: Furosemide 100 MG/10 ML Vial 80 MG IV ×2 (10:17→16:49)
[2022-07-30] MEDS: 0.9% Saline Lock 10 ML Syringe IV (10:17)
[2022-07-30] MEDS: Potassium Chloride Oral Tablet 20 MEQ 40 MEQ PO (14:44)
[2022-07-30 16:42] VITALS: BP 140/57; PULSE 52; RESP 16; TEMP 36.5; O2SAT 97
[2022-07-30] MEDS: Montelukast 10 MG Tablet PO (20:52)
[2022-07-30] MEDS: Atorvastatin Calcium 10 MG Tablet PO (20:52)
[2022-07-30] MEDS: Allopurinol 300 MG Tablet PO (20:53)
[2022-07-30 20:57] VITALS: BP 126/65; PULSE 76; RESP 18; TEMP 36.4; O2SAT 96
[2022-07-30] MEDS: Meclizine HCl 25 MG Tablet PO (21:04)
--- NOTE | 2022-07-30 21:20 | NURSING ---
Per pt, BG is 135 reported by pt scanning dexcom
[2022-07-31] VITALS (9 sets, daily range): BP systolic 119–138; BP diastolic 49–83; PULSE 50–69; RESP 18–20; TEMP 36.2–37.3; O2SAT 77–96; BMI 56.9
[2022-07-31 05:29] LABS: International Normalized Ratio 1.8; Prothrombin Time (Protime)PT. 20.5 SECONDS (11.7-14.9)
[2022-07-31 05:51] LABS: Anion Gap 1 (5-15); BUN 22 mg/dL (7-18); BUN/Creat Ratio 23.5 RATIO (10-20); Calcium,Total 8.8 mg/dL (8.5-10.1); Chloride 103 mmol/L (98-107); Creatinine, Serum 0.94 mg/dL (0.70-1.30); EST Glomerular Filtration Rate 89 mL/min (>60); Est Glom Filt Rate - Afr Amer 107 mL/min (>60); Estimated Creatinine Clearance 97.46 ml/min; Glucose 100 mg/dL (74-106); Magnesium 2.7 mg/dL (1.6-2.6); Potassium 3.6 mmol/L (3.5-5.1); Sodium Level 136 mmol/L (136-145)
--- NOTE | 2022-07-31 07:40 | PN.HOSP_ITS ---
Reason for Visit Reason for Visit: Diagnoses Heart failure, unspecified (07/28/22) Dizziness and giddiness (07/28/22) Subjective Subjective Feels his flanks are more edematous. Objective Data Objective Data Vital Signs: Vital Signs Temp Pulse Resp BP Pulse Ox O2 Del Method O2 Flow Rate 36.7 C 59 L 18 122/60 H 95 Room Air 2 07/31/22 03:10 07/31/22 03:10 07/31/22 03:10 07/31/22 03:10 07/31/22 03:10 07/31/22 03:58 07/30/22 20:57 FiO2 92 07/29/22 07:40 Oxygen Flow Rate (L/min) 2 Oxygen Delivery Method Room Air Weight: 190.5 kg Body Mass Index (BMI) 56.9 Intake & Output: Intake and Output for Last 24 Hours 07/29/22 07/30/22 07/31/22 23:59 23:59 23:59 Intake Total 1340 / 1340 920 / 2500 1580 / 1580 Output Total 5150 / 5150 2300 / 4150 1950 / 1950 Balance -3810 / -3810 -1380 / -1650 -370 / -370 Lab / Micro Data Result Diagrams: 07/29/22 04:18 07/31/22 04:27 Labs: Laboratory Results - last 24 hr 07/30/22 04:13: Hemoglobin A1c 5.7 H 07/31/22 04:27: PT 20.5 H, INR 1.8 07/31/22 04:27: Sodium 136, Potassium 3.6, Chloride 103, Carbon Dioxide 32.0, Anion Gap 1 L, BUN 22 H, Creatinine 0.94, Estim Creat Clear Calc 97.46, Est GFR (MDRD) Af Amer 107, Est GFR (MDRD) Non-Af 89, BUN/Creatinine Ratio 23.5 H, Glucose 100, Calcium 8.8, Magnesium 2.7 H Rhythm Strip Rhythm Strip: Sinus Rhythm Physical Exam Const alert and no apparent distress HEENT head/scalp atraumatic and moist oral mucous membranes Resp normal respiratory effort, no retractions, no use of accessory muscles and clear to auscultation bilaterally Cardio regular rate, regular rhythm, S1 normal heart sound and S2 normal heart sound GI normal to inspection, nondistended, normoactive bowel sounds and soft to palpation Extremity Extremity Narrative: posterior LE edema, Assessment & Plan Assessment/Plan (1) CHF (congestive heart failure): PLAN: acute HFpEF Clinically does not appear COPD is currently contributing to his symptoms. IV Lasix 80 mg every 12 hours Repeat echocardiogram shows EF 55-60% Consult dietitian for dietary education. Chest CT shows right pleural effusion and ascites. Pt complaining of shifting edema, but likely due to pt being primarily horizontal. Continue with diuresis, I recommended furosemide gtt. He is agreeable. (2) Vertigo: PLAN: chronic, recurrent sounds like BPPV has been on meclizine in past has never seen vestibular therapy. consult PT. PLAN: Plan Chronic conditions: * Morbid obesity. Lifestyle modifications as able. * Obstructive sleep apnea. Continue with CPAP. Patient may bring home machine. * Chronic atrial fibrillation. Rate is controlled. We will hold Coumadin for now in anticipation of any potential invasive procedures. When ready may just resume at home dose/regimen without need for bridging. Note heart rate into the 30s but not clearly documented. Heart rate currently in the 70s. We will hold off any changes to his medications at this time. * Hepatic steatosis: US showed hepatomegaly w/o focal mass. Hepatic steatosis appears resolved. Distended gallbladder or evidence of acute cholecystitis. VTE prophylaxis: anticoagulated. Charges/Coding Visit Charges Inpatient E&M: 36041 [facility] Hosp L2
[2022-07-31] MEDS: Glimepiride 4 MG Tablet PO (08:55)
[2022-07-31] MEDS: FLUTICASONE/UMECLIDIN/VILANTER 1 EACH BLST.W.DEV INHALATION (08:56)
[2022-07-31] MEDS: Furosemide 100 MG/10 ML Vial 80 MG IV (08:56)
[2022-07-31] MEDS: dilTIAZem CD 240 MG Capsule PO (08:56)
[2022-07-31] MEDS: Lisinopril 5 MG Tablet PO (08:56)
[2022-07-31] MEDS: Gabapentin 300 MG Capsule PO ×3 (09:01→20:43)
[2022-07-31] MEDS: Furosemide 500 MG in Empty Viaflex 50 mL 1 EACH CONT INF (12:41)
[2022-07-31] MEDS: Acetaminophen 325 MG Tablet 650 MG PO ×2 (14:33→22:45)
[2022-07-31] MEDS: Meclizine HCl 25 MG Tablet PO (20:43)
[2022-07-31] MEDS: Atorvastatin Calcium 10 MG Tablet PO (20:44)
[2022-07-31] MEDS: Montelukast 10 MG Tablet PO (20:44)
[2022-07-31] MEDS: Allopurinol 300 MG Tablet PO (20:44)
--- NOTE | 2022-07-31 21:08 | NURSING ---
Pt reports that dexcom reading was 116 to this RN
[2022-07-31] MEDS: MELATONIN 3 MG TABLET PO (22:45)
[2022-08-01] VITALS (7 sets, daily range): BP systolic 109–127; BP diastolic 53–69; PULSE 50–76; RESP 12–18; TEMP 36.3–36.9; O2SAT 86–97
[2022-08-01 07:12] LABS: International Normalized Ratio 1.6; Prothrombin Time (Protime)PT. 19.1 SECONDS (11.7-14.9)
[2022-08-01 07:28] LABS: Anion Gap 1 (5-15); BUN 25 mg/dL (7-18); BUN/Creat Ratio 25.4 RATIO (10-20); Calcium,Total 8.6 mg/dL (8.5-10.1); Chloride 101 mmol/L (98-107); Creatinine, Serum 0.99 mg/dL (0.70-1.30); EST Glomerular Filtration Rate 84 mL/min (>60); Est Glom Filt Rate - Afr Amer 101 mL/min (>60); Estimated Creatinine Clearance 91.45 ml/min; Glucose 108 mg/dL (74-106); Potassium 3.7 mmol/L (3.5-5.1); Sodium Level 135 mmol/L (136-145)
--- NOTE | 2022-08-01 07:28 | PN.HOSP_ITS ---
Reason for Visit Reason for Visit: Diagnoses Heart failure, unspecified (07/28/22) Dizziness and giddiness (07/28/22) Subjective Subjective Still with flank and LE edema. Objective Data Objective Data Vital Signs: Vital Signs Temp Pulse Resp BP Pulse Ox O2 Del Method O2 Flow Rate 36.9 C 59 L 17 109/55 L 94 Nasal Cannula 2 08/01/22 02:50 08/01/22 02:50 08/01/22 02:50 08/01/22 02:50 08/01/22 02:50 08/01/22 04:03 08/01/22 04:03 FiO2 92 07/29/22 07:40 Oxygen Flow Rate (L/min) [At 2 REST with Oxygen] Oxygen Flow Rate (L/min) [ 3 AMBULATING with Oxygen #1] Oxygen Flow Rate (L/min) 2 Oxygen Delivery Method Nasal Cannula Weight: 190.5 kg Body Mass Index (BMI) 56.9 Intake & Output: Intake and Output for Last 24 Hours 07/30/22 07/31/22 08/01/22 23:59 23:59 23:59 Intake Total 920 / 2500 3300 / 3300 Output Total 2300 / 4150 5050 / 5050 1000 / 1000 Balance -1380 / -1650 -1750 / -1750 -1000 / -1000 Lab / Micro Data Result Diagrams: 07/29/22 04:18 08/01/22 06:47 Labs: Laboratory Results - last 24 hr 08/01/22 06:47: PT 19.1 H, INR 1.6 Rhythm Strip Rhythm Strip: Sinus Rhythm Physical Exam Const alert and no apparent distress HEENT head/scalp atraumatic and moist oral mucous membranes Resp normal respiratory effort, no retractions, no use of accessory muscles and clear to auscultation bilaterally Cardio regular rate, regular rhythm, S1 normal heart sound and S2 normal heart sound GI normal to inspection, nondistended, normoactive bowel sounds Extremity Extremity Narrative: Bilateral LE edema. Assessment & Plan Assessment/Plan (1) CHF (congestive heart failure): PLAN: acute HFpEF Clinically does not appear COPD is currently contributing to his symptoms. IV Lasix 80 mg every 12 hours Repeat echocardiogram shows EF 55-60% Consult dietitian for dietary education. Chest CT shows right pleural effusion and ascites. Pt complaining of shifting edema, but likely due to pt being primarily horizontal. Continue with diuresis, I recommended furosemide gtt. He is agreeable. 08/01: increase furosemide gtt to 15mg/h (2) Vertigo: PLAN: chronic, recurrent sounds like BPPV has been on meclizine in past has never seen vestibular therapy. consult PT. PLAN: Plan Chronic conditions: * Morbid obesity. Lifestyle modifications as able. * Obstructive sleep apnea. Continue with CPAP. Patient may bring home machine. * Chronic atrial fibrillation. Rate is controlled. When ready may just resume at home dose/regimen without need for bridging. Note heart rate into the 30s but not clearly documented. Heart rate currently in the 70s. We will hold off any changes to his medications at this time. Continue warfarin * Hepatic steatosis: US showed hepatomegaly w/o focal mass. Hepatic steatosis appears resolved. Distended gallbladder or evidence of acute cholecystitis. VTE prophylaxis: anticoagulated. Charges/Coding Visit Charges Inpatient E&M: 10028 Subs Hosp L2
[2022-08-01] MEDS: dilTIAZem CD 240 MG Capsule PO (09:04)
[2022-08-01] MEDS: Glimepiride 4 MG Tablet PO (09:04)
[2022-08-01] MEDS: FLUTICASONE/UMECLIDIN/VILANTER 1 EACH BLST.W.DEV INHALATION (09:04)
[2022-08-01] MEDS: Lisinopril 5 MG Tablet PO (09:05)
[2022-08-01] MEDS: Gabapentin 300 MG Capsule PO ×3 (09:07→20:54)
--- NOTE | 2022-08-01 11:26 | NURSING ---
BG checked by pt morning BG 97 afternoon BG 123
[2022-08-01] MEDS: Potassium Chloride Oral Tablet 20 MEQ 40 MEQ PO (11:52)
[2022-08-01] MEDS: Furosemide 500 MG in Empty Viaflex 50 mL 1 EACH CONT INF (14:09)
--- NOTE | 2022-08-01 15:48 | CASEMGMT ---
Social Work Pt indicated to the admitting RN that he does not have LW/POA, and is not interested in further information. MG Powell
[2022-08-01] MEDS: Acetaminophen 325 MG Tablet 650 MG PO (17:12)
[2022-08-01] MEDS: Montelukast 10 MG Tablet PO (20:54)
[2022-08-01] MEDS: Atorvastatin Calcium 10 MG Tablet PO (20:54)
[2022-08-01] MEDS: Allopurinol 300 MG Tablet PO (20:54)
--- NOTE | 2022-08-01 20:56 | NURSING ---
Blood sugar 138 at this time.
[2022-08-02] VITALS (7 sets, daily range): BP systolic 118–128; BP diastolic 54–62; PULSE 45–65; RESP 16–18; TEMP 36.2–36.9; O2SAT 86–99
[2022-08-02 05:53] LABS: International Normalized Ratio 1.6; Prothrombin Time (Protime)PT. 18.8 SECONDS (11.7-14.9)
[2022-08-02 05:57] LABS: Anion Gap 3 (5-15); BUN 28 mg/dL (7-18); BUN/Creat Ratio 25.7 RATIO (10-20); Calcium,Total 8.4 mg/dL (8.5-10.1); Chloride 100 mmol/L (98-107); Creatinine, Serum 1.09 mg/dL (0.70-1.30); EST Glomerular Filtration Rate 74 mL/min (>60); Est Glom Filt Rate - Afr Amer 90 mL/min (>60); Estimated Creatinine Clearance 83.06 ml/min; Glucose 105 mg/dL (74-106); Magnesium 2.3 mg/dL (1.6-2.6); Potassium 3.7 mmol/L (3.5-5.1); Sodium Level 136 mmol/L (136-145)
--- NOTE | 2022-08-02 08:14 | NURSING ---
Blood sugar 111 at this time per pt report via dexcom
[2022-08-02] MEDS: Gabapentin 300 MG Capsule PO ×3 (09:02→20:40)
[2022-08-02] MEDS: Potassium Chloride Oral Tablet 20 MEQ 40 MEQ PO (09:02)
[2022-08-02] MEDS: Lisinopril 5 MG Tablet PO (09:03)
[2022-08-02] MEDS: dilTIAZem CD 240 MG Capsule PO (09:03)
[2022-08-02] MEDS: Glimepiride 4 MG Tablet PO (09:03)
[2022-08-02] MEDS: FLUTICASONE/UMECLIDIN/VILANTER 1 EACH BLST.W.DEV INHALATION (09:03)
--- NOTE | 2022-08-02 09:10 | PN.HOSP_ITS ---
Reason for Visit Reason for Visit: Diagnoses Heart failure, unspecified (07/28/22) Dizziness and giddiness (07/28/22) Subjective Subjective Still with flank and LE edema. No noticable changes. Still hypoxic when his oxygen is off. Objective Data Objective Data Vital Signs: Vital Signs Temp Pulse Resp BP Pulse Ox O2 Del Method O2 Flow Rate 36.9 C 65 16 119/56 L 96 Nasal Cannula 2 08/02/22 09:02 08/02/22 09:02 08/02/22 09:02 08/02/22 09:02 08/02/22 09:02 08/02/22 09:02 08/02/22 09:02 FiO2 92 07/29/22 07:40 Oxygen Flow Rate (L/min) [At 2 REST with Oxygen] Oxygen Flow Rate (L/min) [ 3 AMBULATING with Oxygen #1] Oxygen Flow Rate (L/min) 2 Oxygen Delivery Method Nasal Cannula Weight: 190.5 kg Body Mass Index (BMI) 56.9 Intake & Output: Intake and Output for Last 24 Hours 07/31/22 08/01/22 08/02/22 23:59 23:59 23:59 Intake Total 3300 / 3300 1027.98 / 1177.98 390 / 390 Output Total 5050 / 5050 5100 / 6100 1000 / 1000 Balance -1750 / -1750 -4072.02 / -4922.02 -610 / -610 Lab / Micro Data Result Diagrams: 07/29/22 04:18 08/02/22 04:23 Labs: Laboratory Results - last 24 hr 08/02/22 04:23: PT 18.8 H, INR 1.6 08/02/22 04:23: Sodium 136, Potassium 3.7, Chloride 100, Carbon Dioxide 33.0 H, Anion Gap 3 L, BUN 28 H, Creatinine 1.09, Estim Creat Clear Calc 83.06, Est GFR (MDRD) Af Amer 90, Est GFR (MDRD) Non-Af 74, BUN/Creatinine Ratio 25.7 H, Glucose 105, Calcium 8.4 L, Magnesium 2.3 Rhythm Strip Rhythm Strip: Sinus Rhythm Physical Exam Const alert and no apparent distress Resp normal respiratory effort, no retractions and no use of accessory muscles Cardio regular rate, regular rhythm, S1 normal heart sound and S2 normal heart sound GI normal to inspection, nondistended, normoactive bowel sounds and soft to palpation GI Narrative: obese. flank and pannus edema. Extremity General Extremity: edema Assessment & Plan Assessment/Plan (1) CHF (congestive heart failure): PLAN: acute HFpEF Clinically does not appear COPD is currently contributing to his symptoms. IV Lasix 80 mg every 12 hours Repeat echocardiogram shows EF 55-60% Consult dietitian for dietary education. Chest CT shows right pleural effusion and ascites. Pt complaining of shifting edema, but likely due to pt being primarily h orizontal. Continue with diuresis, I recommended furosemide gtt. He is agreeable. 08/01: increase furosemide gtt to 15mg/h 08/02: continue furosemide gtt at 15mg/h. Pt still very edematous and would b enefit from inpatient diuresis despite having lost 11 liters thus far. Would continue until there is a worsening of kidney function. Upon discharge, would recommend increase furosemide from 80 BID to 120. I discussed this with the patient/ (2) Vertigo: PLAN: chronic, recurrent sounds like BPPV has been on meclizine in past has never seen vestibular therapy. consult PT. (3) Subtherapeutic anticoagulation: PLAN: Normally takes 10mg warfarin/d 08/01 he received 12.5 08/02, will administer at total of 15. PLAN: Plan Chronic conditions: * Morbid obesity. Lifestyle modifications as able. * Obstructive sleep apnea. Continue with CPAP. Patient may bring home machine. * Chronic atrial fibrillation. Rate is controlled. When ready may just resume at home dose/regimen without need for bridging. Note heart rate into the 30s but not clearly documented. Heart rate currently in the 70s. We will hold off any changes to his medications at this time. Continue warfarin * Hepatic steatosis: US showed hepatomegaly w/o focal mass. Hepatic steatosis appears resolved. Distended gallbladder or evidence of acute cholecystitis. VTE prophylaxis: anticoagulated. Charges/Coding Visit Charges Inpatient E&M: 07633 Subs Hosp L2
--- NOTE | 2022-08-02 11:52 | NURSING ---
Blood sugar 128 at this time per pt report via dexcom
[2022-08-02] MEDS: Acetaminophen 325 MG Tablet 650 MG PO ×2 (15:27→22:42)
--- NOTE | 2022-08-02 16:49 | NURSING ---
Blood sugar 126 at this time per pt report via dexcom
[2022-08-02] MEDS: Allopurinol 300 MG Tablet PO (20:40)
[2022-08-02] MEDS: Loratadine 10 MG Tablet PO (20:40)
[2022-08-02] MEDS: Atorvastatin Calcium 10 MG Tablet PO (20:40)
[2022-08-02] MEDS: Montelukast 10 MG Tablet PO (20:40)
--- NOTE | 2022-08-02 20:41 | NURSING ---
Blood sugar 140 at this time
[2022-08-02] MEDS: MELATONIN 3 MG TABLET PO (22:42)
[2022-08-02] MEDS: Furosemide 500 MG in Empty Viaflex 50 mL 1 EACH CONT INF (22:43)
[2022-08-03] VITALS (7 sets, daily range): BP systolic 98–143; BP diastolic 53–84; PULSE 63–97; RESP 18; TEMP 36.6–38.8; O2SAT 93–100; BMI 56.9
[2022-08-03 06:02] LABS: International Normalized Ratio 1.5; Prothrombin Time (Protime)PT. 18.2 SECONDS (11.7-14.9)
[2022-08-03 06:23] LABS: Anion Gap 3 (5-15); BUN 32 mg/dL (7-18); BUN/Creat Ratio 27.8 RATIO (10-20); Calcium,Total 8.8 mg/dL (8.5-10.1); Chloride 99 mmol/L (98-107); Creatinine, Serum 1.15 mg/dL (0.70-1.30); EST Glomerular Filtration Rate 70 mL/min (>60); Est Glom Filt Rate - Afr Amer 85 mL/min (>60); Estimated Creatinine Clearance 78.72 ml/min; Glucose 125 mg/dL (74-106); Potassium 4.4 mmol/L (3.5-5.1); Sodium Level 135 mmol/L (136-145)
[2022-08-03] MEDS: dilTIAZem CD 240 MG Capsule PO (08:36)
[2022-08-03] MEDS: Glimepiride 4 MG Tablet PO (08:36)
[2022-08-03] MEDS: Lisinopril 5 MG Tablet PO (08:37)
[2022-08-03] MEDS: FLUTICASONE/UMECLIDIN/VILANTER 1 EACH BLST.W.DEV INHALATION (08:38)
[2022-08-03] MEDS: Gabapentin 300 MG Capsule PO ×3 (08:49→22:23)
[2022-08-03] MEDS: Potassium Chloride Oral Tablet 20 MEQ 40 MEQ PO (08:49)
[2022-08-03] MEDS: Acetaminophen 325 MG Tablet 650 MG PO ×3 (08:58→22:42)
[2022-08-03] MEDS: Insulin Lispro 100 UNIT/ML INSULN.PEN 10 UNIT SC (11:55)
--- NOTE | 2022-08-03 17:35 | PCM.PN.HOSP ---
Reason for Visit Reason for Visit: Shortness of breath/lower extremity edema Subjective Subjective Mr. Ruiz is a 57-year-old white male who presented to the emergency department on 07/28/2022 with worsening shortness of breath and bilateral lower extremity edema that had been progressively worsening over several weeks. At the time of admission patient reported abdominal swelling, shortness of breath and exertional dyspnea with easy fatigability. He denied any orthopnea or paroxysmal nocturnal dyspnea. He had been compliant with the CPAP but does admit to some dietary indiscretion and had been living pretty much on fast food at [facility] or [facility] due to his challenging living arrangements. He also reported that he was noncompliant with recent holidays as well. He had recently moved in with his mother and his oral intake as far as diet had improved. He was admitted to the PCU and started on IV Lasix which was then transition to Lasix drip. Echocardiogram was performed and showed a normal EF with normal valves but diastolic and right ventricular function was not commented on and I do suspect he likely has diastolic dysfunction as well as RV dysfunction related to obstructive sleep apnea and possible obesity hypoventilation syndrome. CT of the chest did show right pleural effusion and ascites. He was transition to Lasix drip on 07/31/2022 and since then his diuresis has been more aggressive. Thus far he is negative over 16 L and his weight is down at least 6 kg. Shortness of breath has overall improved. Patient reports that his edema is significantly improving overall. Renal function hold steady and I discussed with the patient the plan is to continue IV diuresis until we see a bump in his renal function. He voiced understanding. We also reviewed diastolic and right-sided heart failure. I did express to him the need for closely monitoring his diet for sodium and fluid intake after the discharge as well as need for weight loss. He voiced understanding of this as well. Objective Data Objective Data Vital Signs: Vital Signs Temp Pulse Resp BP Pulse Ox O2 Del Method O2 Flow Rate 100.2 F H 78 18 98/84 H 96 Nasal Cannula 2 08/03/22 14:35 08/03/22 14:35 08/03/22 14:35 08/03/22 14:35 08/03/22 14:35 08/03/22 14:35 08/03/22 14:35 FiO2 92 07/29/22 07:40 Oxygen Flow Rate (L/min) [At 2 REST with Oxygen] Oxygen Flow Rate (L/min) [ 3 AMBULATING with Oxygen #1] Oxygen Flow Rate (L/min) 2 Oxygen Delivery Method Nasal Cannula Weight: 190.5 kg Body Mass Index (BMI) 56.9 Intake & Output: Intake and Output for Last 24 Hours 08/01/22 08/02/22 08/03/22 23:59 23:59 23:59 Intake Total 1027.98 / 1177.98 1698.85 / 1698.85 120 / 120 Output Total 5100 / 6100 4500 / 4500 2550 / 2550 Balance -4072.02 / -4922.02 -2801.15 / -2801.15 -2430 / -2430 Lab / Micro Data Result Diagrams: 07/29/22 04:18 08/03/22 05:10 Labs: Laboratory Results - last 24 hr 08/03/22 05:10: PT 18.2 H, INR 1.5 08/03/22 05:10: Sodium 135 L, Potassium 4.4, Chloride 99, Carbon Dioxide 33.0 H, Anion Gap 3 L, BUN 32 H, Creatinine 1.15, Estim Creat Clear Calc 78.72, Est GFR (MDRD) Af Amer 85, Est GFR (MDRD) Non-Af 70, BUN/Creatinine Ratio 27.8 H, Glucose 125 H, Calcium 8.8 Rhythm Strip Rhythm Strip: Sinus Rhythm Physical Exam Const alert, oriented x3, no apparent distress and well nourished; Negative for average body habitus or healthy appearing Constitutional Narrative: Morbidly obese, middle-aged, white male standing up at the bedside, nursing at bedside, patient appears comfortable, currently on room air with oxygen saturations at 88 to 90% HEENT head/scalp atraumatic, moist oral mucous membranes and oropharynx normal HEENT Narrative: Mallampati is 3-4, no thrush Head and Scalp: normocephalic Resp normal respiratory effort, no retractions, no use of accessory muscles and clear to auscultation bilaterally Resp Narrative: Distant secondary to body habitus but overall clear Auscultation: Negative for rales, rhonchi or wheezes Cardio regular rate, regular rhythm, S1 normal heart sound, S2 normal heart sound, no murmurs, no rub, no gallops and no clicks GI normal to inspection, nondistended, normoactive bowel sounds, soft to palpation and non-tender Extremity Extremity Narrative: Bilateral lower extremity pitting edema/anasarca, tissue appears to be softening, abdominal anasarca with softening tissue is well but still pitting in dependent areas Neuro oriented x3, CN's II-XII intact bilaterally, moves all extremities and no focal motor deficits Speech: speech normal Psych affect normal Psych Narrative: Very pleasant, appropriately interactive Assessment & Plan Assessment/Plan (1) Vertigo: (2) SOB (shortness of breath): (3) Hypoxia: (4) CHF (congestive heart failure): PLAN: Plan Acute decompensated HFpEF -Likely right-sided and diastolic dysfunction however recent echocardiogram did not comment on diastolic function -16+ liters for his hospital stay and down at least 6 kg -Continue to monitor daily weights and I's and O's -Continue fluid and sodium restriction -Renal function remained stable -Continue Lasix drip -Home Lasix dosing is 80 mg p.o. twice daily -Add metolazone 5 mg daily once transition to p.o. diuretics -Extensive counseling today with regards to diet and sodium and fluid restriction after discharge and patient voiced understanding Vertigo -Chronic and recurrent -Sounds like BPPV -No current issues -Consult PT -As needed meclizine Subtherapeutic INR -On anticoagulation for chronic atrial fibrillation -Continue diltiazem -INR remains subtherapeutic at 1.5 -Increase Coumadin dose to 12.5 mg -Repeat INR in a.m. Seasonal allergies -Continue home therapy HTN/HPL -Continue home betaxolol -Continue home diltiazem -Continue home atorvastatin -Continue home lisinopril Chronic atrial fibrillation -Rate is controlled -Continue home medications as noted above -Continue anticoagulation but increase dose of Coumadin as INR has been subtherapeutic MILAGRO -Continue nocturnal sleep apnea treatment with CPAP Hepatic steatosis -Recommend outpatient follow-up Morbid obesity -Recommend weight loss -Complicates treatment, prognosis, outcomes -BMI is 57 -Discussed need for weight loss -Once diuresis has completed and patient is euvolemic we will check room air ABG for obesity hypoventilation syndrome -Recommend continued outpatient pulmonary follow-up DVT prophylaxis -Patient is chronically anticoagulated however subtherapeutic -Start Lovenox 40 twice daily CODE STATUS Full code Charges/Coding Visit Charges Inpatient E&M: 70088 Subs Hosp L2
--- NOTE | 2022-08-03 19:00 | RAD_ITS ---
INDICATION: fever EXAMINATION/TECHNIQUE: X-RAY - XR Chest 1 View COMPARISON: 07/29/2019 FINDINGS: LINES/DEVICES: None. LUNGS: Moderate right lower lobe infiltrate decreased since prior study. MEDIASTINUM AND CARDIOVASCULAR STRUCTURES: Mild cardiomegaly stable. BONES AND SOFT TISSUES: Unremarkable. RAD/Chest 1 View (Portable) IMPRESSION: Right lower lobe infiltrate but decreased since prior study. Right middle lobe infiltrate almost completely resolved. Mild cardiomegaly. Electronically Signed: Ankit Olivas MD, SHAYE at 20:03 EDT ,
[2022-08-03 19:37] LABS: Absolute Lymphocyte Count 0.21 X10^3/uL (0.83-4.51); Absolute Neutrophil Count 5.3 X10^3/uL (2.0-7.7); Basophil# 0.04 X10^3/uL; Basophil% 0.7 % (0-1); Eosinophil# 0.01 X10^3/uL; Eosinophils% 0.2 % (0-5); Hematocrit 40.4 % (40-54); Hemoglobin 11.9 g/dL (13.0-16.5); Lymphocyte # 0.21 X10^3/ul (0.83-4.51); Lymphocyte % 3.5 % (19-41); Mean Corp Hgb Conc 29.5 g/dL (32-36); Mean Corpuscular Hgb 24.4 pg (27.0-32.0); Mean Platelet Vol. 10.3 fl (6.2-12.0); Monocyte# 0.41 X10^3/uL; Monocyte% 6.8 % (0-10); NRBC Flagged by Analyzer 0 % (0-5); Neutrophil # 5.34 X10^3/uL (2.7-7.7); Neutrophil % 88.5 % (47-70); POSITIVE DIFFERENTIAL YES; Platelet Count 154 K/mm3 (150-450); RBC Distribution Width CV 18.5 % (11.6-14.6); RBC Distribution Width SD 53.9 fl (35.1-43.9); Red Blood Count 4.87 M/mm3 (4.6-6.2)
[2022-08-03 19:54] LABS: Differential Indicated SCAN CRITERIA MET
[2022-08-03 20:11] LABS: Procalcitonin 0.49 ng/mL (0.00-0.09)
[2022-08-03 20:22] LABS: Differential Comment SCANNED
[2022-08-03] MEDS: Piperacil/Tazobactam 3.375 GM Q12 PREMIX IV (20:39)
[2022-08-03] MEDS: Loratadine 10 MG Tablet PO (22:23)
[2022-08-03] MEDS: Montelukast 10 MG Tablet PO (22:23)
[2022-08-03] MEDS: Atorvastatin Calcium 10 MG Tablet PO (22:23)
[2022-08-03] MEDS: Allopurinol 300 MG Tablet PO (22:24)
[2022-08-03 22:30] LABS: Bacteria 0 SEEN /hpf (None Seen); Mucous, Urine 0 SEEN /hpf (<or=2+); Red Blood Cells-Urine 0 SEEN /hpf (0-5); White Blood Cells 0 SEEN /hpf (0-5)
[2022-08-03 22:32] LABS: Color, Urine Yellow (Yellow); Glucose, Dipstick Normal (Normal); Ketone-Dipstick Negative (Negative); Leukocyte Esterase-Dipstick Negative /ul (Negative); Nitrite-Dipstick Negative (Negative); Occult Blood-Urine Negative /ul (Negative); Protein-Dipstick 15 mg/dl (Negative); Urine Bilirubin Dipstick Negative (Negative); Urine Clarity Sl. Cloudy (Clear); Urine Urobilinogen Normal (Normal)
[2022-08-03] MEDS: MELATONIN 3 MG TABLET PO (22:33)
[2022-08-03 22:39] LABS: Squamous Epithelial Cells - UA 0-5 SEEN /hpf (0-5)
[2022-08-03 22:39] LABS: M R Staph aureus DNA By PCR Negative (Negative); Probe Check PASS; Specimen Processing Control PASS
[2022-08-04 01:00] VITALS: BP 107/50; PULSE 73; RESP 18; TEMP 36.8; O2SAT 95
--- NOTE | 2022-08-04 03:15 | PCM.RX.CS ---
Consult Pharmacy has been consulted to manage selected antiobiotic: Vancomycin Type of Consult: New start Labs: Sodium 135 mmol/L (136-145) L 08/03/22 05:10 Potassium 4.4 mmol/L (3.5-5.1) 08/03/22 05:10 Chloride 99 mmol/L (98-107) 08/03/22 05:10 Carbon Dioxide 33.0 mmol/L (21.0-32.0) H 08/03/22 05:10 Anion Gap 3 (5-15) L 08/03/22 05:10 BUN 32 mg/dL (7-18) H 08/03/22 05:10 Creatinine 1.15 mg/dL (0.70-1.30) 08/03/22 05:10 Est GFR (MDRD) Af Amer 85 mL/min (>60) 08/03/22 05:10 Est GFR (MDRD) Non-Af 70 mL/min (>60) 08/03/22 05:10 BUN/Creatinine Ratio 27.8 RATIO (10-20) H 08/03/22 05:10 Glucose 125 mg/dL (74-106) H 08/03/22 05:10 Microbiology: Microbiology 08/03/22 19:50 Mucosa - Nasopharyngeal Respiratory Panel (PCR) - Final 08/03/22 19:35 Nasal Secretion SARS-CoV-2 & FLU Antigen (Rapid) - Final Goal Trough: 15-20 mcg/mL Pharmacy Plan for Drug Dosing: Pharmacy Service will continue to monitor and adjust dosing as required. Medications Vancomycin HCl 1,500 mg/ (Sodium Chloride) 530 mls @ 250 mls/hr IV Q8H KAYLEE Discontinued Medications Vancomycin HCl 2,000 mg/ (Sodium Chloride) 540 mls @ 250 mls/hr IV X1 ONE Stop: 08/03/22 22:09 Last Admin: 08/04/22 00:54 Dose: Infused Follow-Up Labs: Trough Vancomycin Labs to be done on [date and time ordered]: 08/04 @ 8271
[2022-08-04 04:52] VITALS: BMI 56.0
[2022-08-04 05:11] LABS: Absolute Neutrophil Count 4.6 X10^3/uL (2.0-7.7); Basophil# 0.04 X10^3/uL; Basophil% 0.7 % (0-1); Eosinophil# 0.01 X10^3/uL; Eosinophils% 0.2 % (0-5); Hematocrit 43.9 % (40-54); Hemoglobin 12.5 g/dL (13.0-16.5); Lymphocyte % 5.4 % (19-41); Mean Corp Hgb Conc 28.5 g/dL (32-36); Mean Corpuscular Hgb 24.1 pg (27.0-32.0); Mean Corpuscular Volume 84.7 fL (80-94); Mean Platelet Vol. 10.9 fl (6.2-12.0); Monocyte# 0.61 X10^3/uL; Monocyte% 10.9 % (0-10); NRBC Flagged by Analyzer 0 % (0-5); Neutrophil # 4.62 X10^3/uL (2.7-7.7); Neutrophil % 82.4 % (47-70); POSITIVE DIFFERENTIAL YES; Platelet Count 154 K/mm3 (150-450); RBC Distribution Width CV 19.2 % (11.6-14.6); RBC Distribution Width SD 57.1 fl (35.1-43.9); Red Blood Count 5.18 M/mm3 (4.6-6.2); White Blood Count 5.6 K/mm3 (4.4-11.0)
[2022-08-04 05:19] LABS: Differential Indicated SCAN CRITERIA MET
[2022-08-04 05:32] LABS: Differential Comment SCANNED
[2022-08-04 05:51] LABS: Anion Gap 4 (5-15); BUN 32 mg/dL (7-18); BUN/Creat Ratio 23.9 RATIO (10-20); Calcium,Total 8.8 mg/dL (8.5-10.1); Chloride 99 mmol/L (98-107); Creatinine, Serum 1.34 mg/dL (0.70-1.30); EST Glomerular Filtration Rate 59 mL/min (>60); Est Glom Filt Rate - Afr Amer 71 mL/min (>60); Estimated Creatinine Clearance 67.56 ml/min; Glucose 124 mg/dL (74-106); International Normalized Ratio 1.7; Prothrombin Time (Protime)PT. 19.4 SECONDS (11.7-14.9); Sodium Level 134 mmol/L (136-145)
[2022-08-04 06:46] VITALS: BP 142/51; PULSE 71; RESP 16; TEMP 37.2; O2SAT 97
[2022-08-04] MEDS: Furosemide 500 MG in Empty Viaflex 50 mL 1 EACH CONT INF (06:49)
[2022-08-04 07:57] VITALS: O2SAT 96
[2022-08-04] MEDS: Potassium Chloride Oral Tablet 20 MEQ 40 MEQ PO (08:46)
[2022-08-04] MEDS: 0.9% Saline Lock 10 ML Syringe IV (08:46)
[2022-08-04] MEDS: Glimepiride 4 MG Tablet PO (08:46)
[2022-08-04] MEDS: dilTIAZem CD 240 MG Capsule PO (08:47)
[2022-08-04] MEDS: Lisinopril 5 MG Tablet PO (08:49)
[2022-08-04] MEDS: FLUTICASONE/UMECLIDIN/VILANTER 1 EACH BLST.W.DEV INHALATION (08:50)
[2022-08-04] MEDS: Gabapentin 300 MG Capsule PO ×3 (08:53→22:37)
[2022-08-04] MEDS: Metolazone 2.5 MG Tablet PO (08:54)
[2022-08-04] MEDS: Acetaminophen 325 MG Tablet 650 MG PO ×3 (12:05→22:32)
[2022-08-04 12:46] VITALS: BP 126/55; PULSE 73; RESP 18; TEMP 37.1; O2SAT 97
--- NOTE | 2022-08-04 14:02 | PCM.PN.HOSP ---
Reason for Visit Reason for Visit: Shortness of breath Subjective Subjective Patient with fever yesterday afternoon and infectious work-up was performed and blood cultures have just resulted positive for gram-positive cocci in clusters in 2 of 2 bottles. Staph is suspected however unclear if it is MSSA versus MRSA or other staph species. Identification in progress. Patient is feeling much better today since antibiotics were initiated and has had no more fevers. Shortness of breath has improved. Swelling is improved. Renal function is up slightly today therefore we will stop his Lasix drip and transition to oral diuretics. Patient states he is feeling much better than he was yesterday afternoon. Objective Data Objective Data Vital Signs: Vital Signs Temp Pulse Resp BP Pulse Ox O2 Del Method O2 Flow Rate 98.9 F 71 16 142/51 H 96 Nasal Cannula 2 08/04/22 06:46 08/04/22 06:46 08/04/22 06:46 08/04/22 06:46 08/04/22 07:57 08/04/22 10:00 08/04/22 10:00 FiO2 32 08/04/22 07:57 Oxygen Flow Rate (L/min) [At 2 REST with Oxygen] Oxygen Flow Rate (L/min) [ 3 AMBULATING with Oxygen #1] Oxygen Flow Rate (L/min) 2 Oxygen Delivery Method Nasal Cannula Weight: 187.2 kg Body Mass Index (BMI) 56.0 Intake & Output: Intake and Output for Last 24 Hours 08/02/22 08/03/22 08/04/22 23:59 23:59 23:59 Intake Total 1698.85 / 1698.85 290 / 290 1769.17 / 1769.17 Output Total 4500 / 4500 2550 / 2550 1900 / 1900 Balance -2801.15 / -2801.15 -2260 / -2260 -130.83 / -130.83 Lab / Micro Data Result Diagrams: 08/04/22 04:45 08/04/22 04:45 Labs: Laboratory Results - last 24 hr 08/03/22 19:10: WBC 6.0, RBC 4.87, Hgb 11.9 L, Hct 40.4, MCV 83.0, MCH 24.4 L, MCHC 29.5 L, RDW Std Deviation 53.9 H, RDW Coeff of Brina 18.5 H, Plt Count 154, MPV 10.3, Immature Gran % (Auto) 0.300, Neut % (Auto) 88.5 H, Lymph % (Auto) 3.5 L, [place] % (Auto) 6.8, Eos % (Auto) 0.2, Baso % (Auto) 0.7, Absolute Neuts (auto) 5.3, Absolute Lymphs (auto) 0.21 L, Nucleated RBC % 0, Differential Comment SCANNED 08/03/22 19:10: Procalcitonin 0.49 H 08/03/22 19:35: MRSA (PCR) Negative 08/03/22 22:19: Urine Color Yellow, Urine Clarity Sl. Cloudy, Urine pH 6.0, Ur Specific [place] 1.010, Urine Protein 15 H, Urine Glucose (UA) Normal, Urine Ketones Negative, Urine Occult Blood Negative, Urine Nitrite Negative, Urine Bilirubin Negative, Urine Urobilinogen Normal, Ur Leukocyte Esterase Negative, Urine RBC 0 SEEN, Urine WBC 0 SEEN, Ur Squamous Epith Cells 0-5 SEEN, Urine Bacteria 0 SEEN, Urine Mucus 0 SEEN 08/04/22 04:45: PT 19.4 H, INR 1.7 08/04/22 04:45: Sodium 134 L, Potassium 4.0, Chloride 99, Carbon Dioxide 31.0, Anion Gap 4 L, BUN 32 H, Creatinine 1.34 H, Estim Creat Clear Calc 67.56, Est GFR (MDRD) Af Amer 71, Est GFR (MDRD) Non-Af 59 L, BUN/Creatinine Ratio 23.9 H, Glucose 124 H, Calcium 8.8 08/04/22 04:45: WBC 5.6, RBC 5.18, Hgb 12.5 L, Hct 43.9, MCV 84.7, MCH 24.1 L, MCHC 28.5 L, RDW Std Deviation 57.1 H, RDW Coeff of [place] 19.2 H, Plt Count 154, MPV 10.9, Immature Gran % (Auto) 0.400, Neut % (Auto) 82.4 H, Lymph % (Auto) 5.4 L, [place] % (Auto) 10.9 H, Eos % (Auto) 0.2, Baso % (Auto) 0.7, Absolute Neuts (auto) 4.6, Absolute Lymphs (auto) 0.30 L, Nucleated RBC % 0, Differential Comment SCANNED Micro: Microbiology 08/03/22 19:20 Blood Culture (Wb) - Left Hand Blood Culture - Preliminary 08/03/22 19:10 Blood Culture (Wb) - Anticubital Right Blood Culture - Preliminary 08/03/22 19:50 Mucosa - Nasopharyngeal Respiratory Panel (PCR) - Final 08/03/22 19:35 Nasal Secretion SARS-CoV-2 & FLU Antigen (Rapid) - Final Radiography Diagnostic Testing: Radiology Impression Chest X-Ray 08/03/22 19:00 IMPRESSION: Right lower lobe infiltrate but decreased since prior study. Right middle lobe infiltrate almost completely resolved. Mild cardiomegaly. Electronically Signed: Ankit Olivas MD, SHAYE at 20:03 EDT , Rhythm Strip Rhythm Strip: Sinus Rhythm Physical Exam Const alert, oriented x3, no apparent distress and well nourished; Negative for average body habitus or healthy appearing Constitutional Narrative: Morbidly obese, middle-aged, white male sitting up in a chair at the bedside, nursing at bedside, patient appears comfortable HEENT head/scalp atraumatic, moist oral mucous membranes and oropharynx normal Resp normal respiratory effort, no retractions, no use of accessory muscles and clear to auscultation bilaterally Resp Narrative: Distant secondary to body habitus but overall clear Auscultation: Negative for rales, rhonchi or wheezes Cardio regular rate, regular rhythm, S1 normal heart sound, S2 normal heart sound, no murmurs, no rub, no gallops and no clicks GI normal to inspection, nondistended, normoactive bowel sounds, soft to palpation, non-tender and non-distended GI Narrative: obese. flank and pannus edema. Extremity no clubbing, cyanosis or edema Extremity Narrative: Bilateral lower extremity pitting edema/anasarca, tissue appears to be softening, abdominal anasarca with softening tissue is well but still pitting in dependent areas General Extremity: edema Neuro oriented x3, CN's II-XII intact bilaterally, moves all extremities and no focal motor deficits Speech: speech normal Psych affect normal Psych Narrative: Very pleasant, appropriately interactive Assessment & Plan Assessment/Plan (1) Vertigo: (2) SOB (shortness of breath): (3) Hypoxia: (4) CHF (congestive heart failure): PLAN: Plan Acute decompensated HFpEF -Likely right-sided and diastolic dysfunction however recent echocardiogram did not comment on diastolic function -16 liters negative for his hospital stay and down at least 17 pounds -Continue to monitor daily weights and I's and O's -Continue fluid and sodium restriction -Renal function remained stable -Discontinue Lasix drip and transition to oral Lasix starting this evening with 80 mg and then twice daily thereafter -Serum creatinine has started to trend up and patient appears to be intravascularly dry at this time -Start metolazone 2.5 mg daily -Extensive counseling with regards to diet and sodium and fluid restriction after discharge and patient voiced understanding Staph bacteremia -Suspect staph species but unclear if this is going to be resistant or susceptible staph however MRSA screen is negative so I do suspect this is likely going to be sensitive staph -Suspect cutaneous source -Continue broad-spectrum antibiotics with vancomycin and Zosyn and await culture finalization -Patient with recent echo so we will defer to ID at this time -Infectious disease consultation -Repeat blood cultures in a.m. -Procalcitonin was elevated at 0.49 yesterday -Chest x-ray and UA were unremarkable Vertigo -Chronic and recurrent -Sounds like BPPV -No current issues -PT is following -As needed meclizine Subtherapeutic INR -On anticoagulation for chronic atrial fibrillation -Continue diltiazem -INR remains subtherapeutic but up from 1.5-1.7 today -Continue increased Coumadin dose to 12.5 mg -Repeat INR in a.m. Seasonal allergies -Continue home therapy HTN/HPL -Continue home betaxolol -Continue home diltiazem -Continue home atorvastatin -Continue home lisinopril Chronic atrial fibrillation -Rate is controlled -Continue home medications as noted above -Continue anticoagulation but increase dose of Coumadin as INR has been subtherapeutic MILAGRO -Continue nocturnal sleep apnea treatment with CPAP Hepatic steatosis -Recommend outpatient follow-up Morbid obesity -Recommend weight loss -Complicates treatment, prognosis, outcomes -BMI is 57 -Discussed need for weight loss -Once diuresis has completed and patient is euvolemic we will check room air ABG for obesity hypoventilation syndrome -Recommend continued outpatient pulmonary follow-up DVT prophylaxis -Patient is chronically anticoagulated however subtherapeutic -Start Lovenox 40 twice daily until INR is greater than 2 CODE STATUS Full code Charges/Coding Visit Charges Inpatient E&M: 62872 Subs Hosp L2
[2022-08-04] MEDS: Enoxaparin 60 MG/0.6 ML Syringe 50 MG SC (17:27)
[2022-08-04 18:46] VITALS: BP 118/53; PULSE 75; RESP 16; TEMP 36.7; O2SAT 94
[2022-08-04 22:29] VITALS: BP 115/62; PULSE 81; RESP 18; TEMP 36.9; O2SAT 93
[2022-08-04] MEDS: Atorvastatin Calcium 10 MG Tablet PO (22:32)
[2022-08-04] MEDS: Loratadine 10 MG Tablet PO (22:32)
[2022-08-04] MEDS: Furosemide 80 MG Tablet PO (22:32)
[2022-08-04] MEDS: Allopurinol 300 MG Tablet PO (22:33)
[2022-08-04] MEDS: Montelukast 10 MG Tablet PO (22:33)
[2022-08-04 22:46] LABS: Vancomycin, Trough Level 25.2 ug/mL (5.0-15.0)
--- NOTE | 2022-08-05 00:43 | PCM.RX.CS ---
Consult Pharmacy has been consulted to manage selected antiobiotic: Vancomycin Type of Consult: Follow-up Labs: Sodium 134 mmol/L (136-145) L 08/04/22 04:45 Potassium 4.0 mmol/L (3.5-5.1) 08/04/22 04:45 Chloride 99 mmol/L (98-107) 08/04/22 04:45 Carbon Dioxide 31.0 mmol/L (21.0-32.0) 08/04/22 04:45 Anion Gap 4 (5-15) L 08/04/22 04:45 BUN 32 mg/dL (7-18) H 08/04/22 04:45 Creatinine 1.34 mg/dL (0.70-1.30) H 08/04/22 04:45 Est GFR (MDRD) Af Amer 71 mL/min (>60) 08/04/22 04:45 Est GFR (MDRD) Non-Af 59 mL/min (>60) L 08/04/22 04:45 BUN/Creatinine Ratio 23.9 RATIO (10-20) H 08/04/22 04:45 Glucose 124 mg/dL (74-106) H 08/04/22 04:45 Vancomycin Trough 25.2 ug/mL (5.0-15.0) H 08/04/22 21:20 Microbiology: Microbiology 08/03/22 19:20 Blood Culture (Wb) - Left Hand Bacteria Detection (PCR) - Preliminary Staphylococcus epidermidis 08/03/22 19:20 Blood Culture (Wb) - Left Hand Blood Culture - Preliminary 08/03/22 19:10 Blood Culture (Wb) - Anticubital Right Blood Culture - Preliminary 08/03/22 19:50 Mucosa - Nasopharyngeal Respiratory Panel (PCR) - Final 08/03/22 19:35 Nasal Secretion SARS-CoV-2 & FLU Antigen (Rapid) - Final Goal Trough: 15-20 mcg/mL Pharmacy Plan for Drug Dosing: Pharmacy Service will continue to monitor and adjust dosing as required. TROUGH 25.2 @ 9 HOURS. HOLD CURRENT DOSE, DRAW RANDOM LEVEL @0600 Follow-Up Labs: Trough Vancomycin Labs to be done on [date and time ordered]: 08/05 @ 0600
[2022-08-05 04:00] VITALS: BMI 56.2
[2022-08-05 04:15] VITALS: BP 114/67; PULSE 67; RESP 18; TEMP 36.3; O2SAT 94
[2022-08-05 04:35] LABS: International Normalized Ratio 1.8; Prothrombin Time (Protime)PT. 20.7 SECONDS (11.7-14.9)
[2022-08-05 04:41] LABS: Anion Gap 2 (5-15); BUN 39 mg/dL (7-18); BUN/Creat Ratio 25.3 RATIO (10-20); Calcium,Total 8.3 mg/dL (8.5-10.1); Chloride 98 mmol/L (98-107); Creatinine, Serum 1.54 mg/dL (0.70-1.30); EST Glomerular Filtration Rate 50 mL/min (>60); Est Glom Filt Rate - Afr Amer 60 mL/min (>60); Estimated Creatinine Clearance 58.79 ml/min; Glucose 108 mg/dL (74-106); Potassium 3.8 mmol/L (3.5-5.1); Sodium Level 133 mmol/L (136-145)
[2022-08-05] MEDS: Enoxaparin 60 MG/0.6 ML Syringe 50 MG SC ×2 (05:33→16:37)
[2022-08-05 05:45] LABS: Vancomycin, Random Level 20.5 ug/mL (0.0-15.0)
[2022-08-05 07:15] VITALS: O2SAT 91
--- NOTE | 2022-08-05 07:40 | PCM.RX.CS ---
Consult Pharmacy has been consulted to manage selected antiobiotic: Vancomycin Type of Consult: Follow-up Prior Doses of Antibiotics Received/Current Regimen: 08/04/22 @ 0445 08/04/22 @ 1206 08/04/22 2322 HELD Labs: Sodium 133 mmol/L (136-145) L 08/05/22 03:56 Potassium 3.8 mmol/L (3.5-5.1) 08/05/22 03:56 Chloride 98 mmol/L (98-107) 08/05/22 03:56 Carbon Dioxide 33.0 mmol/L (21.0-32.0) H 08/05/22 03:56 Anion Gap 2 (5-15) L 08/05/22 03:56 BUN 39 mg/dL (7-18) H 08/05/22 03:56 Creatinine 1.54 mg/dL (0.70-1.30) H 08/05/22 03:56 Est GFR (MDRD) Af Amer 60 mL/min (>60) 08/05/22 03:56 Est GFR (MDRD) Non-Af 50 mL/min (>60) L 08/05/22 03:56 BUN/Creatinine Ratio 25.3 RATIO (10-20) H 08/05/22 03:56 Glucose 108 mg/dL (74-106) H 08/05/22 03:56 Vancomycin Trough 25.2 ug/mL (5.0-15.0) H 08/04/22 21:20 Random Vancomycin 20.5 ug/mL (0.0-15.0) H 08/05/22 03:56 Microbiology: Microbiology 08/03/22 19:20 Blood Culture (Wb) - Left Hand Bacteria Detection (PCR) - Final Staphylococcus epidermidis 08/03/22 19:20 Blood Culture (Wb) - Left Hand Blood Culture - Preliminary Staphylococcus epidermidis 08/03/22 19:10 Blood Culture (Wb) - Anticubital Right Blood Culture - Preliminary 08/03/22 19:50 Mucosa - Nasopharyngeal Respiratory Panel (PCR) - Final 08/03/22 19:35 Nasal Secretion SARS-CoV-2 & FLU Antigen (Rapid) - Final Weight used for dosin kg Estimated Creatinine Clearance: 59 Pharmacy Plan for Drug Dosing: Random level on 08/05/22 @ 0356 was 20.5. Will schedule a random level for 08/05/22 @ 1800 Pharmacy Service will continue to monitor and adjust dosing as required. Follow-Up Labs: Trough Other - random vancomycin Labs to be done on [date and time ordered]: 08/05/22 @ 1800
[2022-08-05] MEDS: Lisinopril 5 MG Tablet PO (08:22)
[2022-08-05] MEDS: Furosemide 80 MG Tablet PO ×2 (08:23→16:38)
[2022-08-05] MEDS: Glimepiride 4 MG Tablet PO (08:23)
[2022-08-05] MEDS: Potassium Chloride Oral Tablet 20 MEQ 40 MEQ PO (08:23)
[2022-08-05] MEDS: dilTIAZem CD 240 MG Capsule PO (08:23)
[2022-08-05] MEDS: FLUTICASONE/UMECLIDIN/VILANTER 1 EACH BLST.W.DEV INHALATION (08:24)
[2022-08-05] MEDS: Metolazone 2.5 MG Tablet PO (08:25)
[2022-08-05] MEDS: Gabapentin 300 MG Capsule PO ×3 (08:28→21:04)
[2022-08-05 08:32] VITALS: BP 117/67; PULSE 75; RESP 16; TEMP 36.9; O2SAT 92
--- NOTE | 2022-08-05 11:49 | CHAPLAIN ---
Type of Pastoral Visit _x__ Initial Visit ___ Follow-up Visit ___ On-call Visit ___ General Patient Visit ___ Spiritual Assessment ___ Family Conference ___ Bereavement ___ Rapid Response ___ Code Blue ___ Other (describe below) Pastoral Care Referral From _x__ Patient ___ Family ___ Nurse ___ Physician ___ Brake Adjuster ___ Swim Coach ___ Other (describe below) Sacrament/Intervention _x__ Active listening ___ Anointing ___ Jew ___ Bereavement ___ Communion _x__ Dali exploration ___ ___ Life review _x__ Prayer ___ Reconciliation ___ Sacrament of Sick _x__ Supportive presence ___ Wedding ___ Other (describe below) Pastoral Comments patient reports on health, testing, and they discovered some others things since I've been in here; pt asked about coping and indicates doing okay; mother is with him in room; pt has dali in God for support; pt is not connected to a dali group and discussion follows; pt is welcoming of presence and prayer; pt offered support in the future as desired
--- NOTE | 2022-08-05 13:22 | CON.PCM.ID_ITS ---
Assessment & Plan Assessment/Plan (1) CHF (congestive heart failure): (2) Bacteremia due to coagulase-negative Staphylococcus: PLAN: Suspect skin source. Fever resolved, feeling better. 2 of 2 bcx (+) with msse per pcr. Will narrow vanc/zosyn to ceftriaxone. Plan on discharge home in 1-2 days on po keflex 500mg tid for one more week. Will follow, thank you HPI Consult Data Date of Consult: 08/05/22 HPI Narrative Reason for Consultation: bacteremia HPI Narrative: MARIA DE JESUS ROSARIO, is a 57 M with h/o CHF, copd, chronic BLE edema, presented with several weeks of worsening swelling in legs and abd, associated with dyspnea on exertion. No fever or chills, no cough or sputum. Saw PCP and sat was in 80s. Sent to ED 07/28. Admitted, put on lasix gtt. On 08/03 new fever, chills, confusion. Started on vanc/zosyn, now feeling better. No rash, cellulitis, blisters. No dysuria. Some headache. Full ROS performed and neg except as noted above. [facility] Medical History Asthma BiPAP (biphasic positive airway pressure) dependence Cardiology follow-up encounter Cellulitis of right leg COPD (chronic obstructive pulmonary disease) COPD exacerbation Diabetes Essential (primary) hypertension Excessive bleeding Exogenous obesity Former smoker Hematuria High cholesterol History of abdominal paracentesis History of atrial fibrillation History of echocardiogram History of edema History of pain when walking History of stress test Hoarseness Hypercholesteremia Insulin dependent diabetes mellitus Kidney stones Leg cramps Longstanding persistent atrial fibrillation Lymphedema Mild intermittent asthma Morbid obesity due to excess calories Neuropathy Obstructive sleep apnea MILAGRO (obstructive sleep apnea) Right bundle branch block (RBBB) Sciatica Seasonal allergies Secondary pulmonary arterial hypertension Shortness of breath Shortness of breath on exertion Sleep apnea Super-super obese Swelling of lower limb Type 2 diabetes mellitus Venous hypertension, chronic Venous hypertension, chronic, with ulcer and inflammation Venous insufficiency Venous ulcer of right leg Vertigo Wears glasses Home Medications atorvastatin 10 mg tablet 10 mg PO QHS cholesterol 01/29/15 [History Last Taken 07/27/22] lisinopril 5 mg tablet 5 mg PO DAILY blood pressure 01/29/15 [History Last Taken 07/28/22] betaxolol 10 mg tablet 10 mg PO DAILY BP 03/03/17 [History Last Taken 07/28/22] metformin 1,000 mg tablet 1,000 mg PO BID diabetes 03/03/17 [History Last Taken 07/28/22] meclizine 25 mg tablet 25 mg PO DAILY PRN Vertigo 8 days #32 tabs 08/08/18 [History Last Taken 07/28/22] albuterol sulfate 90 mcg/actuation aerosol inhaler (ProAir HFA) 2 puff inhalation Q4H PRN shortness of breath or wheezing 12/19/18 [History Last Taken 06/03/19 19:30] fluticasone propionate 50 mcg/actuation nasal spray,suspension 2 spray NASAL DAILY PRN Allergies 03/14/19 [History Last Taken 07/27/22] insulin glargine U-300 conc 300 unit/mL (1.5 mL) subcutaneous pen (Toujeo SoloStar U-300 Insulin) 50 units SQ DAILY diabetes 03/14/19 [History Last Taken 07/25/22] gabapentin 300 mg capsule 300 mg PO TID nerve pain 06/04/19 [History Last Taken 07/28/22] glimepiride 4 mg tablet 4 mg PO DAILY diabetes 06/04/19 [History Last Taken 07/28/22] warfarin 1 mg tablet 10 mg PO DINNER 08/28/20 [History Last Taken 07/27/22] furosemide 80 mg tablet 80 mg PO BID 11/19/21 [History Last Taken 07/28/22] fluticasone fur. 200 mcg-umeclid 62.5 mcg-vilant 25 mcg inhalat.powder (Trelegy Ellipta) 1 inh inhalation DAILY #60 ea 01/07/22 [Rx Last Taken 07/28/22] montelukast 10 mg tablet 10 mg PO QHS allergies #30 tabs 01/26/22 [Rx Last Taken 07/27/22] diltiazem HCl 240 mg capsule,24 hr,extended release 240 mg PO DAILY heart #30 caps 04/29/22 [Rx Last Taken 07/28/22] PEP device #1 ea 05/18/22 [Rx Last Taken Unknown] IMMUNE DEFENCE 1 tab PO/SL DAILY SUPPLEMENT 07/28/22 [History Last Taken 07/27/22] [place] 3 1 tab PO/SL DAILY SUPPLEMENT 07/28/22 [History Last Taken 07/27/22] Probiotic 1 cap PO/SL DAILY SUPPLEMENT 07/28/22 [History Last Taken 07/27/22] Ubiquinol/Vitamin D 1 tab PO/SL DAILY SUPPLEMENT 07/28/22 [History Last Taken 07/27/22] allopurinol 300 mg tablet 300 mg PO QHS GOUT 07/28/22 [History Last Taken 07/27/22] insulin lispro 100 unit/mL subcutaneous pen (Humalog KwikPen (U-100) Insulin) 10 unit subcut TIDCM DM 07/28/22 [History Last Taken 07/25/22] triamcinolone acetonide 0.1 % topical cream 1 applic topical BID RASH 07/28/22 [History Last Taken 07/27/22] cetirizine 10 mg tablet 10 mg PO QHS allergies 08/02/22 [History Last Taken 07/28/22] Allergy/AdvReac Type Severity Reaction Status Date / Time adhesive tape Allergy Rash Verified 07/28/22 09:42 codeine Allergy rash Verified 07/28/22 09:42 levofloxacin [From Levaquin] Allergy hives and Verified 07/28/22 09:42 swelling oxycodone Allergy hives Verified 07/28/22 09:42 Family History Mother Breast cancer Father Prostate cancer Surgical History History of cardiac catheterization History of meatotomy of ureter Social History Smoking Status: Former smoker how long ago did patient quit smokin years alcohol intake: never substance use type: does not use caffeine: No Physical Exam Const alert, oriented x3 and no apparent distress General Appearance: cooperative HEENT normocephalic and head/scalp atraumatic Eyes PERRL and EOMs intact bilaterally Neck supple and No nodes Resp normal air movement and clear to auscultation bilaterally Auscultation: diminished lung sounds Cardio regular rate and regular rhythm GI soft to palpation, non-tender and non-distended Extremity General Extremity: edema Skin no rashes or lesions noted Neuro CN's II-XII intact bilaterally Lab / Micro Data Attestation: I reviewed the patient's lab results. Result Diagrams: 08/04/22 04:45 08/05/22 03:56 Labs: Laboratory Results - last 24 hr 08/04/22 21:20: Vancomycin Trough 25.2 H 08/05/22 03:56: PT 20.7 H, INR 1.8 08/05/22 03:56: Sodium 133 L, Potassium 3.8, Chloride 98, Carbon Dioxide 33.0 H, Anion Gap 2 L, BUN 39 H, Creatinine 1.54 H, Estim Creat Clear Calc 58.79, Est GFR (MDRD) Af Amer 60, Est GFR (MDRD) Non-Af 50 L, BUN/Creatinine Ratio 25.3 H, Glucose 108 H, Calcium 8.3 L 08/05/22 03:56: Random Vancomycin 20.5 H Micro: Microbiology 08/03/22 22:19 Urine, Clean Catch Urine Culture - Final Mixed Gram Pos & Gram Neg Org 08/03/22 19:20 Blood Culture (Wb) - Left Hand Bacteria Detection (PCR) - Final Staphylococcus epidermidis 08/03/22 19:20 Blood Culture (Wb) - Left Hand Blood Culture - Preliminary Staphylococcus epidermidis 08/03/22 19:10 Blood Culture (Wb) - Anticubital Right Blood Culture - Preliminary Rhythm Strip Rhythm Strip: Sinus Rhythm
[2022-08-05 14:00] VITALS: BP 112/64; PULSE 60; RESP 16; TEMP 37.4; O2SAT 93
--- NOTE | 2022-08-05 17:15 | PCM.PN.HOSP ---
Subjective Subjective Feeling better, no issues overnight Objective Data Objective Data Vital Signs: Vital Signs Temp Pulse Resp BP Pulse Ox O2 Del Method O2 Flow Rate 99.4 F H 60 16 112/64 93 Nasal Cannula 2 08/05/22 14:00 08/05/22 14:00 08/05/22 14:00 08/05/22 14:00 08/05/22 14:00 08/05/22 14:00 08/05/22 14:00 FiO2 32 08/04/22 07:57 Oxygen Flow Rate (L/min) [At 2 REST with Oxygen] Oxygen Flow Rate (L/min) [ 3 AMBULATING with Oxygen #1] Oxygen Flow Rate (L/min) 2 Oxygen Delivery Method Nasal Cannula Weight: 414 lb 11.032 oz Body Mass Index (BMI) 56.2 Intake & Output: Intake and Output for Last 24 Hours 08/04/22 08/05/22 08/06/22 03:59 03:59 03:59 Intake Total 989.3 / 989.3 2419.87 / 2419.87 100 / 100 Output Total 3150 / 3150 3750 / 3750 1100 / 1100 Balance -2160.7 / -2160.7 -1330.13 / -1330.13 -1000 / -1000 Lab / Micro Data Result Diagrams: 08/04/22 04:45 08/05/22 03:56 Labs: Laboratory Results - last 24 hr 08/04/22 21:20: Vancomycin Trough 25.2 H 08/05/22 03:56: PT 20.7 H, INR 1.8 08/05/22 03:56: Sodium 133 L, Potassium 3.8, Chloride 98, Carbon Dioxide 33.0 H, Anion Gap 2 L, BUN 39 H, Creatinine 1.54 H, Estim Creat Clear Calc 58.79, Est GFR (MDRD) Af Amer 60, Est GFR (MDRD) Non-Af 50 L, BUN/Creatinine Ratio 25.3 H, Glucose 108 H, Calcium 8.3 L 08/05/22 03:56: Random Vancomycin 20.5 H Micro: Microbiology 08/03/22 22:19 Urine, Clean Catch Urine Culture - Final Mixed Gram Pos & Gram Neg Org 08/03/22 19:20 Blood Culture (Wb) - Left Hand Bacteria Detection (PCR) - Final Staphylococcus epidermidis 08/03/22 19:20 Blood Culture (Wb) - Left Hand Blood Culture - Preliminary Staphylococcus epidermidis 08/03/22 19:10 Blood Culture (Wb) - Anticubital Right Blood Culture - Preliminary 08/03/22 19:50 Mucosa - Nasopharyngeal Respiratory Panel (PCR) - Final 08/03/22 19:35 Nasal Secretion SARS-CoV-2 & FLU Antigen (Rapid) - Final Rhythm Strip Rhythm Strip: Sinus Rhythm Physical Exam Narrative General: Alert, Oriented x3, Cooperative, No apparent distress HEENT: Atraumatic, PERRLA, EOMI, Normocephalic Oral: Moist Mucosa Neck: Supple, No JVD Lungs: Diminished, Normal air movement, No rhonchi, No wheeze, No rales Cardiovascular: Regular rate, Regular Rhythm, Normal S1, Normal S2, No murmurs Abdomen: Soft, Non Tender, Non-Distended, No Hepato-splenomegaly Extremities: Edema, Capillary Refill Less than 3 Seconds Skin: Improving erythema on his left lower extremity Musculoskeletal: No Tenderness to Palpation of Joints or Extremities Neurological: Cranial nerves II-XII grossly intact, Motor Exam 5/5 strength throughout, Sensory exam intact to light touch and pain Psych/Mental Status: Normal Affect, Appropriate Assessment & Plan Assessment/Plan (1) Vertigo: (2) SOB (shortness of breath): (3) Hypoxia: (4) CHF (congestive heart failure): PLAN: Plan 1. Acute on chronic diastolic CHF/HTN/HLD/chronic A-fib/TRESA/MILAGRO ? He now has an TRESA secondary to diuresis, will continue to monitor and continue with p.o. Lasix ? On presentation he had significant edema and he was on the Lasix drip yesterday this was discontinued secondary to a slight elevation in his creatinine ? Metolazone, will discontinue if his creatinine continues to rise ? On 07/28/2022 had an echo with an EF of 55 to 60% ? She was diuresed about 16 L and is respiratory status is much improved compared to admission, he is still requiring oxygen and this is likely secondary to sleep apnea would recommend outpatient follow-up, continue with CPAP ? Blood pressures are stable, continue with his home medications ? Continue with Coumadin, monitor INR 2. Lower extremity cellulitis with Staph epidermidis bacteremia ? Previous echo was unremarkable ? Appreciate IDs assistance, will plan for oral antibiotics on discharge 3. Morbid obesity ? BMI is 57 ? Had extensive conversation on lifestyle modification with him and his mother 4. Vertigo ? Documentation is appears to be BPPV ? Follow-up as an outpatient 5. Hepatic steatosis ? Outpatient follow-up DVT: Coumadin Charges/Coding Visit Charges Inpatient E&M: 94032 Subs Hosp L2
--- NOTE | 2022-08-05 19:26 | CPS ---
pt has home unit with 3 l/m o2 bleed
[2022-08-05 21:00] VITALS: BP 123/67; PULSE 66; RESP 18; TEMP 36.9; O2SAT 91
--- NOTE | 2022-08-05 21:02 | NURSING ---
blood sugar 152 at this time, patient refusing insulin
[2022-08-05] MEDS: Allopurinol 300 MG Tablet PO (21:04)
[2022-08-05] MEDS: Montelukast 10 MG Tablet PO (21:04)
[2022-08-05] MEDS: Acetaminophen 325 MG Tablet 650 MG PO (21:04)
[2022-08-05] MEDS: Atorvastatin Calcium 10 MG Tablet PO (21:04)
[2022-08-05] MEDS: Loratadine 10 MG Tablet PO (21:04)
[2022-08-05] MEDS: MELATONIN 3 MG TABLET PO (21:09)
[2022-08-05 22:58] VITALS: BP 109/59; PULSE 63; RESP 18; TEMP 36.9; O2SAT 94
[2022-08-06] VITALS (7 sets, daily range): BP systolic 104–107; BP diastolic 56–72; PULSE 56–67; RESP 16–18; TEMP 36.7–36.8; O2SAT 87–96; BMI 55.9
[2022-08-06 06:24] LABS: International Normalized Ratio 1.8; Prothrombin Time (Protime)PT. 20.7 SECONDS (11.7-14.9)
[2022-08-06 06:45] LABS: Anion Gap 4 (5-15); BUN 48 mg/dL (7-18); BUN/Creat Ratio 32.4 RATIO (10-20); Calcium,Total 8.8 mg/dL (8.5-10.1); Chloride 98 mmol/L (98-107); Creatinine, Serum 1.48 mg/dL (0.70-1.30); EST Glomerular Filtration Rate 52 mL/min (>60); Est Glom Filt Rate - Afr Amer 63 mL/min (>60); Estimated Creatinine Clearance 61.17 ml/min; Glucose 87 mg/dL (74-106); Potassium 3.7 mmol/L (3.5-5.1); Sodium Level 133 mmol/L (136-145)
--- NOTE | 2022-08-06 07:47 | NURSING ---
Blood sugar 69 at this time via patient's kwaku. snack given
[2022-08-06] MEDS: Furosemide 80 MG Tablet PO (09:28)
[2022-08-06] MEDS: Lisinopril 5 MG Tablet PO (09:28)
[2022-08-06] MEDS: Potassium Chloride Oral Tablet 20 MEQ 40 MEQ PO (09:28)
[2022-08-06] MEDS: Glimepiride 4 MG Tablet PO (09:28)
[2022-08-06] MEDS: dilTIAZem CD 240 MG Capsule PO (09:28)
[2022-08-06] MEDS: Metolazone 2.5 MG Tablet PO (09:29)
[2022-08-06] MEDS: FLUTICASONE/UMECLIDIN/VILANTER 1 EACH BLST.W.DEV INHALATION (09:29)
[2022-08-06] MEDS: Gabapentin 300 MG Capsule PO (09:30)
--- NOTE | 2022-08-06 09:32 | DCINST_ITS ---
Discharge Instructions Diet Discharge Diet: Low fat / Low cholesterol, 6 Cup Fluid Restriction and Carb Control Diet Activity Discharge Activity: Return to Normal Activity Dressing / Incision Call your doctor if you observe: Fever of 101 or Higher, Shortness of breath, Dizziness, Fainting spells, Swelling in the ankles, Chest pain and Increased palpitations (irregular heartbeat) Follow Up Care Test Results: Test results from this visit will be discussed in further detail at your follow- up appointment, if applicable. Discharge Plan Admission Admit Date/Time: 07/28/22 14:33 Attending Provider: Bucky Frausto Primary Care Provider: Al Mondragon Consulting Providers: Vincent Cardona ; Craig Roth ; Carlos Medina ; Estee Alexandre Instructions Additional Instructions / Restrictions: Follow-up with your PCP in the next 3 to 5 days to monitor your kidney function with a BMP as I have placed you on a fluid restriction and added metolazone to your diuretic therapy. Discharge Orders/Prescriptions Prescriptions: New metolazone 2.5 mg Tablet 2.5 mg PO DAILY Qty: 30 0RF cephalexin 500 mg capsule 500 mg PO TID 7 Days Qty: 21 0RF Rx Instructions: First dose to start on 08/07/2022 Continued meclizine 25 mg tablet 25 mg PO DAILY PRN (Reason: Vertigo) 8 Days Qty: 32 Label Comments: 1 (ONE) TABLET EVERY SIX HOURS, NEEDED albuterol sulfate [ProAir HFA] 90 mcg/actuation HFA aerosol inhaler 2 puff INHALATION Q4H PRN (Reason: shortness of breath or wheezing) furosemide 80 mg tablet 80 mg PO BID (DME) PEP device See Rx Instructions .ROUTE .MEDSUPPLY Qty: 1 0RF Rx Instructions: with training atorvastatin 10 MG tablet 10 mg PO QHS Label Comments: cholesterol lisinopril 5 MG tablet 5 mg PO DAILY Label Comments: blood pressure metformin 1,000 MG tablet 1,000 mg PO BID betaxolol 10 MG tablet 10 mg PO DAILY fluticasone propionate 1 SPRAY spray,suspension 2 spray NASAL DAILY PRN (Reason: Allergies) Jean Paul Baileyar U-300 Insulin 300 UNIT/ML insulin pen 50 units SQ DAILY glimepiride 4 MG tablet 4 mg PO DAILY gabapentin 300 MG capsule 300 mg PO TID warfarin 1 mg tablet 10 mg PO DINNER triamcinolone acetonide 0.1 % Cream 1 applic TOPICAL BID allopurinol 300 mg tablet 300 mg PO QHS insulin lispro [Humalog KwikPen Insulin] 100 unit/mL insulin pen 10 unit SUBCUT TIDCM IMMUNE DEFENCE 1 tab PO/SL DAILY Gibbon 3 1 tab PO/SL DAILY Probiotic 1 cap PO/SL DAILY Ubiquinol/Vitamin D 1 tab PO/SL DAILY cetirizine 10 mg Tablet 10 mg PO QHS Trelegy Ellipta 200-62.5-25 mcg blister with device 1 inh INHALATION DAILY Qty: 60 6RF montelukast 10 mg tablet 10 mg PO QHS Qty: 30 6RF diltiazem HCl 240 mg capsule,extended release 24 hr 240 mg PO DAILY Qty: 30 11RF Referrals / Follow Up: Al Mondragon MD [Primary Care Provider] - Within 1 Week Disposition Disposition (needs filled in before D/C Order can be placed): Home, Self Care
--- NOTE | 2022-08-06 10:44 | DS.PCM_ITS ---
Providers Date of Admission: 07/28/22 Primary Care Physician: Dr. Al Mondragon MD Consultations 08/04/22 14:02 Consult: Infectious Disease Routine Consulting Provider: Carlos Medina Reason for Consult: Staph Bacteremia EMERGENT Consult: No MD Notified: Yes Date Notified: 08/04/22 Time Notified: 14:11 Method of Notification: Answering Service Reason For Visit: CHF, HYPOXIA, SOB Diagnosis Discharge Diagnosis (1) Vertigo: Status: Acute Code(s): R42 - Dizziness and giddiness (2) SOB (shortness of breath): Status: Acute Code(s): R06.02 - Shortness of breath (3) Hypoxia: Status: Acute Code(s): R09.02 - Hypoxemia (4) CHF (congestive heart failure): Status: Acute Code(s): I50.9 - Heart failure, unspecified Medications at Discharge Home Medications atorvastatin 10 mg tablet 10 mg PO QHS cholesterol 01/29/15 lisinopril 5 mg tablet 5 mg PO DAILY blood pressure 01/29/15 betaxolol 10 mg tablet 10 mg PO DAILY BP 03/03/17 metformin 1,000 mg tablet 1,000 mg PO BID diabetes 03/03/17 meclizine 25 mg tablet 25 mg PO DAILY PRN Vertigo 8 days #32 tabs 08/08/18 albuterol sulfate 90 mcg/actuation aerosol inhaler (ProAir HFA) 2 puff inhalation Q4H PRN shortness of breath or wheezing 12/19/18 fluticasone propionate 50 mcg/actuation nasal spray,suspension 2 spray NASAL DAILY PRN Allergies 03/14/19 insulin glargine U-300 conc 300 unit/mL (1.5 mL) subcutaneous pen (Toujeo SoloStar U-300 Insulin) 50 units SQ DAILY diabetes 03/14/19 gabapentin 300 mg capsule 300 mg PO TID nerve pain 06/04/19 glimepiride 4 mg tablet 4 mg PO DAILY diabetes 06/04/19 warfarin 1 mg tablet 10 mg PO DINNER 08/28/20 furosemide 80 mg tablet 80 mg PO BID 11/19/21 fluticasone fur. 200 mcg-umeclid 62.5 mcg-vilant 25 mcg inhalat.powder (Trelegy Ellipta) 1 inh inhalation DAILY #60 ea 01/07/22 montelukast 10 mg tablet 10 mg PO QHS allergies #30 tabs 01/26/22 diltiazem HCl 240 mg capsule,24 hr,extended release 240 mg PO DAILY heart #30 caps 04/29/22 PEP device #1 ea 05/18/22 IMMUNE DEFENCE 1 tab PO/SL DAILY SUPPLEMENT 07/28/22 Sutherlin 3 1 tab PO/SL DAILY SUPPLEMENT 07/28/22 Probiotic 1 cap PO/SL DAILY SUPPLEMENT 07/28/22 Ubiquinol/Vitamin D 1 tab PO/SL DAILY SUPPLEMENT 07/28/22 allopurinol 300 mg tablet 300 mg PO QHS GOUT 07/28/22 insulin lispro 100 unit/mL subcutaneous pen (Humalog KwikPen (U-100) Insulin) 10 unit subcut TIDCM DM 07/28/22 triamcinolone acetonide 0.1 % topical cream 1 applic topical BID RASH 07/28/22 cetirizine 10 mg tablet 10 mg PO QHS allergies 08/02/22 cephalexin 500 mg capsule 500 mg PO TID 7 days #21 caps 08/06/22 metolazone 2.5 mg tablet 2.5 mg PO DAILY #30 tabs 08/06/22 Hospital Course Operations None Procedures 2-D Echocardiogram Summary of Care Provided Minutes Spent on Discharge: 39 Hospital Course: Per HPI: Hospital Course: 1. Acute on chronic diastolic CHF/HTN/HLD/chronic A-fib/TRESA/MILAGRO ? He now has an TRESA secondary to diuresis which is improving, will continue to monitor and continue with p.o. Lasix ? On presentation he had significant edema and he was on the Lasix drip yesterday this was discontinued secondary to a slight elevation in his creatinine ? Metolazone, will discontinue if his creatinine continues to rise ? On 07/28/2022 had an echo with an EF of 55 to 60% ? he was diuresed about 20 L and is respiratory status is much improved compared to admission, he is still requiring oxygen and this is likely secondary to sleep apnea would recommend outpatient follow-up, continue with CPAP ? Blood pressures are stable, continue with his home medications ? Continue with Coumadin, monitor INR ? I discussed with him plan for discharge today he expressed understanding Aileen of is going home and would like to go home today. We did an ambulatory pulse ox prior to discharge which demonstrated the need for oxygen with ambulation and at rest. We did add metolazone to his diuretic regimen, and I discussed with him the role of a fluid restriction to 1.5 L. I do recommend that he follow-up with his PCP in 3 to 5 days. I do also recommend that he follow-up and get a BMP to monitor his renal function as he did develop an TRESA secondary to overdiuresis. 2. Lower extremity cellulitis with Staph epidermidis bacteremia ? Previous echo was unremarkable ? Appreciate IDs assistance, he will receive his dose of Rocephin today and then will transition to 3 times daily 500 mg p.o. Keflex for another week starting tomorrow ? Does also have redness around the lateral aspect of his right thigh that does not include his conjunctiva, he is on oral antibiotics I do recommend following up with an hse coordinator on discharge which was discussed with him 3. Morbid obesity ? BMI is 57 ? Had extensive conversation on lifestyle modification with him and his mother 4. Vertigo ? Documentation is appears to be BPPV ? Follow-up as an outpatient 5. Hepatic steatosis ? Outpatient follow-up Physical Exam Narrative General: Alert, Oriented x3, Cooperative, No apparent distress HEENT: Atraumatic, PERRLA, EOMI, Normocephalic, erythema to his right lateral eye does not include conjunctiva Oral: Moist Mucosa Neck: Supple, No JVD Lungs: Diminished, Normal air movement, No rhonchi, No wheeze, No rales Cardiovascular: Regular rate, Regular Rhythm, Normal S1, Normal S2, No murmurs Abdomen: Soft, Non Tender, Non-Distended, No Hepato-splenomegaly Extremities: Edema, Capillary Refill Less than 3 Seconds Skin: Improving erythema on his left lower extremity Musculoskeletal: No Tenderness to Palpation of Joints or Extremities Neurological: Cranial nerves II-XII grossly intact, Motor Exam 5/5 strength throughout, Sensory exam intact to light touch and pain Psych/Mental Status: Normal Affect, Appropriate Weight / BMI Weight Weight: 412 lb 7.758 oz Body Mass Index (BMI) 55.9 ABG / Lab / Microbiology Data Result Diagrams: 08/04/22 04:45 08/06/22 05:11 Laboratory: Laboratory Results - last 24 hr 08/06/22 05:11: PT 20.7 H, INR 1.8 08/06/22 05:11: Sodium 133 L, Potassium 3.7, Chloride 98, Carbon Dioxide 31.0, Anion Gap 4 L, BUN 48 H, Creatinine 1.48 H, Estim Creat Clear Calc 61.17, Est GFR (MDRD) Af Amer 63, Est GFR (MDRD) Non-Af 52 L, BUN/Creatinine Ratio 32.4 H, Glucose 87, Calcium 8.8 Microbiology: Microbiology 08/03/22 19:20 Blood Culture (Wb) - Left Hand Bacteria Detection (PCR) - Final Staphylococcus epidermidis 08/03/22 19:20 Blood Culture (Wb) - Left Hand Blood Culture - Final Staphylococcus epidermidis 08/03/22 19:10 Blood Culture (Wb) - Anticubital Right Blood Culture - Final Staphylococcus epidermidis 08/03/22 22:19 Urine, Clean Catch Urine Culture - Final Mixed Gram Pos & Gram Neg Org 08/03/22 19:50 Mucosa - Nasopharyngeal Respiratory Panel (PCR) - Final 08/03/22 19:35 Nasal Secretion SARS-CoV-2 & FLU Antigen (Rapid) - Final D/C Instructions Discharge Diet: Low fat / Low cholesterol, 6 Cup Fluid Restriction and Carb Control Diet Call your doctor if you observe: Fever of 101 or Higher, Shortness of breath, Dizziness, Fainting spells, Swelling in the ankles, Chest pain and Increased palpitations (irregular heartbeat) Meaningful Use Info Meaningful Use Diagnoses (Choose all that apply): None applicable Discharge Plan Admission Admit Date/Time: 07/28/22 14:33 Attending Provider: Bucky Frausto Primary Care Provider: Al Mondragon Consulting Providers: Vincent Cardona ; Craig Roth ; Carlos Medina ; Estee Alexandre Instructions Additional Instructions / Restrictions: Follow-up with your PCP in the next 3 to 5 days to monitor your kidney function with a BMP as I have placed you on a fluid restriction and added metolazone to your diuretic therapy. Discharge Orders/Prescriptions Prescriptions: New metolazone 2.5 mg Tablet 2.5 mg PO DAILY Qty: 30 0RF cephalexin 500 mg capsule 500 mg PO TID 7 Days Qty: 21 0RF Rx Instructions: First dose to start on 08/07/2022 Continued meclizine 25 mg tablet 25 mg PO DAILY PRN (Reason: Vertigo) 8 Days Qty: 32 Label Comments: 1 (ONE) TABLET EVERY SIX HOURS, NEEDED albuterol sulfate [ProAir HFA] 90 mcg/actuation HFA aerosol inhaler 2 puff INHALATION Q4H PRN (Reason: shortness of breath or wheezing) furosemide 80 mg tablet 80 mg PO BID (DME) PEP device See Rx Instructions .ROUTE .MEDSUPPLY Qty: 1 0RF Rx Instructions: with training atorvastatin 10 MG tablet 10 mg PO QHS Label Comments: cholesterol lisinopril 5 MG tablet 5 mg PO DAILY Label Comments: blood pressure metformin 1,000 MG tablet 1,000 mg PO BID betaxolol 10 MG tablet 10 mg PO DAILY fluticasone propionate 1 SPRAY spray,suspension 2 spray NASAL DAILY PRN (Reason: Allergies) Toujeo SoloStar U-300 Insulin 300 UNIT/ML insulin pen 50 units SQ DAILY glimepiride 4 MG tablet 4 mg PO DAILY gabapentin 300 MG capsule 300 mg PO TID warfarin 1 mg tablet 10 mg PO DINNER triamcinolone acetonide 0.1 % Cream 1 applic TOPICAL BID allopurinol 300 mg tablet 300 mg PO QHS insulin lispro [Humalog KwikPen Insulin] 100 unit/mL insulin pen 10 unit SUBCUT TIDCM IMMUNE DEFENCE 1 tab PO/SL DAILY [place]lin 3 1 tab PO/SL DAILY Probiotic 1 cap PO/SL DAILY Ubiquinol/Vitamin D 1 tab PO/SL DAILY cetirizine 10 mg Tablet 10 mg PO QHS Trelegy Ellipta 200-62.5-25 mcg blister with device 1 inh INHALATION DAILY Qty: 60 6RF montelukast 10 mg tablet 10 mg PO QHS Qty: 30 6RF diltiazem HCl 240 mg capsule,extended release 24 hr 240 mg PO DAILY Qty: 30 11RF Referrals / Follow Up: Al Mondragon MD [Primary Care Provider] - 08/10/22 10:20 am Disposition Disposition (needs filled in before D/C Order can be placed): Home, Self Care Charges/Coding Visit Charges Inpatient E&M: 87672 Disch Hosp >30min
--- NOTE | 2022-08-06 11:27 | CASEMGMT ---
RN CM updated that patient qualifies for home oxygen. Script received and referral sent to [facility], patient's preferred provider, via [facility]. SIN CM in to patient's room to discuss needs at discharge. Patient declined further needs at discharge at this time
--- NOTE | 2022-08-06 11:37 | NURSING ---
Blood sugar 130 at this time via patient's kwaku
== END 2022-08-06 15:00 | disposition home or self-care (01) | DRG 194 ==
LOC: ED 12:51 → PCU 15:01
PROVIDERS: Family Medicine; Internal Medicine; Admitting Provider Internal Medicine; Emergency Provider Emergency Medicine; PCP Family Medicine; Visit Provider Family Medicine
DX: I11.0 Hypertensive heart disease with heart failure (principal); R78.81 Bacteremia; N17.9 Acute kidney failure, unspecified; R18.8 Other ascites; Z68.43 Body mass index [BMI] 50.0-59.9, adult; E11.40 Type 2 diabetes mellitus with diabetic neuropathy, unspecified; I48.20 Chronic atrial fibrillation, unspecified; Z79.4 Long term (current) use of insulin; J44.9 Chronic obstructive pulmonary disease, unspecified; E66.01 Morbid (severe) obesity due to excess calories; I50.33 Acute on chronic diastolic (congestive) heart failure; K76.0 Fatty (change of) liver, not elsewhere classified; I45.10 Unspecified right bundle-branch block; E78.00 Pure hypercholesterolemia, unspecified; E87.6 Hypokalemia; G47.33 Obstructive sleep apnea (adult) (pediatric); J30.2 Other seasonal allergic rhinitis; E78.5 Hyperlipidemia, unspecified; H81.10 Benign paroxysmal vertigo, unspecified ear; Z79.01 Long term (current) use of anticoagulants; Z87.891 Personal history of nicotine dependence; Z79.51 Long term (current) use of inhaled steroids; R09.02 Hypoxemia; R93.89 Abnormal findings on diagnostic imaging of other specified body structures; B95.7 Other staphylococcus as the cause of diseases classified elsewhere; L03.119 Cellulitis of unspecified part of limb
CPT/HCPCS: 36415; 71045; 71250; 76705; 80048; 80053; 80202; 81001; 82140; 83036; 83735; 83880; 84145; 84443; 84484; 85025; 85610; 87040; 87086; 87088; 87149; 87186; 87428; 87633; 87641; 93005; 93306; 97161; 97530; 97802; 99285; J7040; Q9957; A4216; C8929; J0696; J1940

== ENCOUNTER → 2022-08-12 | Outpatient (CLI) | payer MEDICAID, SELFPAY ==
[2022-08-12 13:04] LABS: Anion Gap 11 (5-15); BUN 34 mg/dL (7-18); BUN/Creat Ratio 23.4 RATIO (10-20); Calcium,Total 9.9 mg/dL (8.5-10.1); Chloride 91 mmol/L (98-107); Creatinine, Serum 1.45 mg/dL (0.70-1.30); EST Glomerular Filtration Rate 54 mL/min (>60); Est Glom Filt Rate - Afr Amer 65 mL/min (>60); Glucose 104 mg/dL (74-106); Sodium Level 134 mmol/L (136-145); Uric Acid 8.4 mg/dL (3.5-7.2)
== END | disposition home or self-care (01) ==
LOC: MFPLAB 09:53
PROVIDERS: PCP Family Medicine; Visit Provider Family Medicine
DX: N17.9 Acute kidney failure, unspecified (principal); M10.9 Gout, unspecified
CPT/HCPCS: 36415; 80048; 84550

== ENCOUNTER → 2022-08-14 | Outpatient (CLI) | payer MEDICAID, SELFPAY ==
[2022-08-14 10:20] LABS: Hematocrit 38.5 % (40-54); Hemoglobin 11.5 g/dL (13.0-16.5); Mean Corp Hgb Conc 29.9 g/dL (32-36); Mean Corpuscular Hgb 24.6 pg (27.0-32.0); Mean Corpuscular Volume 82.4 fL (80-94); Mean Platelet Vol. 10.6 fl (6.2-12.0); Platelet Count 286 K/mm3 (150-450); RBC Distribution Width CV 19.9 % (11.6-14.6); RBC Distribution Width SD 57.6 fl (35.1-43.9); Red Blood Count 4.67 M/mm3 (4.6-6.2); White Blood Count 7.3 K/mm3 (4.4-11.0)
[2022-08-14 10:58] LABS: Anion Gap 11 (5-15); BUN 54 mg/dL (7-18); BUN/Creat Ratio 15.8 RATIO (10-20); Calcium,Total 9.1 mg/dL (8.5-10.1); Chloride 90 mmol/L (98-107); Creatinine, Serum 3.42 mg/dL (0.70-1.30); EST Glomerular Filtration Rate 20 mL/min (>60); Est Glom Filt Rate - Afr Amer 24 mL/min (>60); Glucose 87 mg/dL (74-106); Magnesium 2.2 mg/dL (1.6-2.6); Potassium 4.1 mmol/L (3.5-5.1); Sodium Level 131 mmol/L (136-145)
== END | disposition home or self-care (01) ==
LOC: MFPLAB 09:23
PROVIDERS: PCP Family Medicine; Visit Provider Family Medicine
DX: I10 Essential (primary) hypertension (principal); R25.3 Fasciculation
CPT/HCPCS: 85027; 80048; 36415; 83735; 84443

== ENCOUNTER 2022-08-16 09:47 | Inpatient (IN) | payer MEDICAID, SELFPAY ==
[2022-08-16] VITALS (13 sets, daily range): BP systolic 72–99; BP diastolic 31–53; PULSE 42–68; RESP 14–19; TEMP 36.3–36.9; O2SAT 96–100; BMI 54.7; BMI 54.1
--- NOTE | 2022-08-16 11:00 | EKG12_ITS ---
Test Reason : Blood Pressure : / mmHG Vent. Rate : 046 BPM Atrial Rate : 000 BPM P-R Int : 000 ms QRS Dur : 184 ms QT Int : 510 ms P-R-T Axes : 000 059 016 degrees QTc Int : 446 ms Atrial fibrillation with slow ventricular response Right bundle branch block Abnormal ECG Confirmed by YARELY GACRIA, GLORIA ([id number]), scientific publications editor MEGHANN PERALTA ([id number]) on 08/18/2022 8:09:57 AM Referred By: CHASIDY Confirmed By:GLORIA PRITCHETT MD
--- NOTE | 2022-08-16 11:01 | RAD_ITS ---
EXAM: XR CHEST, 2 VIEWS CLINICAL INDICATION: Chest pain. TECHNIQUE: Frontal and lateral views of the chest. COMPARISON: 08/03/2022. FINDINGS: LUNGS AND PLEURAL SPACES: Decreased right pleural fluid. Improvement of compressive atelectasis of right lung base with minimal residual subsegmental atelectasis. No pneumothorax. HEART: Cardiomegaly is unchanged. MEDIASTINUM: Central airways and mediastinal contour are unremarkable. BONES/JOINTS: Unremarkable. SOFT TISSUES: Unremarkable. RAD/Chest PA and Lateral IMPRESSION: Interval clearing of right pleural fluid and improvement of compressive atelectasis of the right lung base when compared to 08/03/2022. Electronically Signed: Wilbur Hare MD at 12:37 EDT ,
--- NOTE | 2022-08-16 11:04 | EDS_ITS ---
HPI History of Present Illness Chief Complaint: General Illness Narrative Narrative: Patient is a 57-year-old male who is presenting to the ER today with chief complaint of jitters for the past 1.5 weeks since he left the hospital. Patient was admitted to the hospital several days ago for 8 days. Patient says that he had 20 L of fluid taken off at home. Patient has been water restricted in the past 1.5 weeks to 6 cups of water a day. Patient says that he used to drink 1 gallon of water a day. Patient states he has not urinated much in the past couple days. Bladder scan was done by nursing staff, patient does not have any evidence of urine in his bladder. Patient is having no bladder spasm. No pain to penis or testicles. No chest pain or shortness of breath. Patient feels like he is gained 8 pounds in the last several days of possible water weight. Patient lives at home with his mother. Patient now wears 3 L of oxygen at all times secondary to COPD. Patient did not have oxygen on throughout the day until his last admission. Patient has no history of congestive heart failure. Patient does have a history of asthma and COPD. Patient does not feel lightheaded or dizzy. No syncopal episodes. Patient had outpatient lab work done on Wednesday by his PCP. Patient's BUN and creatinine were 54/3.7. Patient says that his creatinine is normal and the ones. Patient's sodium was 131, potassium was 4.1. Patient thinks he needs to be admitted to the hospital aga in, I told him if this is truly new changes to his BUN and creatinine, he may be admitted again, otherwise we could treat him at home symptomatically increase fluids, we will repeat labs. [facility] Medical History Asthma BiPAP (biphasic positive airway pressure) dependence Cardiology follow-up encounter Cellulitis of right leg COPD (chronic obstructive pulmonary disease) COPD exacerbation Diabetes Essential (primary) hypertension Excessive bleeding Exogenous obesity Former smoker Hematuria High cholesterol History of abdominal paracentesis History of atrial fibrillation History of echocardiogram History of edema History of pain when walking History of stress test Hoarseness Hypercholesteremia Insulin dependent diabetes mellitus Kidney stones Leg cramps Longstanding persistent atrial fibrillation Lymphedema Mild intermittent asthma Morbid obesity due to excess calories Neuropathy Obstructive sleep apnea MILAGRO (obstructive sleep apnea) Right bundle branch block (RBBB) Sciatica Seasonal allergies Secondary pulmonary arterial hypertension Shortness of breath Shortness of breath on exertion Sleep apnea Super-super obese Swelling of lower limb Type 2 diabetes mellitus Venous hypertension, chronic Venous hypertension, chronic, with ulcer and inflammation Venous insufficiency Venous ulcer of right leg Vertigo Wears glasses Home Medications atorvastatin 10 mg tablet 10 mg PO QHS cholesterol 01/29/15 [History Last Taken 08/15/22] lisinopril 5 mg tablet 5 mg PO DAILY blood pressure 01/29/15 [History Last Taken 08/16/22] betaxolol 10 mg tablet 10 mg PO DAILY BP 03/03/17 [History Last Taken 08/16/22] metformin 1,000 mg tablet 1,000 mg PO BID diabetes 03/03/17 [History Last Taken 08/15/22] albuterol sulfate 90 mcg/actuation aerosol inhaler (ProAir HFA) 2 puff inhalation Q4H PRN shortness of breath or wheezing 12/19/18 [History Last Taken 06/03/19 19:30] fluticasone propionate 50 mcg/actuation nasal spray,suspension 2 spray NASAL DAILY PRN Allergies 03/14/19 [History Last Taken 08/15/22] gabapentin 300 mg capsule 300 mg PO TID nerve pain 06/04/19 [History Last Taken 08/16/22] glimepiride 4 mg tablet 4 mg PO DAILY diabetes 06/04/19 [History Last Taken 08/14/22] warfarin 1 mg tablet 10 mg PO DINNER 08/28/20 [History Last Taken 08/15/22] furosemide 80 mg tablet 80 mg PO BID 11/19/21 [History Last Taken 08/16/22] fluticasone fur. 200 mcg-umeclid 62.5 mcg-vilant 25 mcg inhalat.powder (Trelegy Ellipta) 1 inh inhalation DAILY #60 ea 01/07/22 [Rx Last Taken 08/16/22] montelukast 10 mg tablet 10 mg PO QHS allergies #30 tabs 01/26/22 [Rx Last Taken 08/15/22] diltiazem HCl 240 mg capsule,24 hr,extended release 240 mg PO DAILY heart #30 caps 04/29/22 [Rx Last Taken 08/16/22] allopurinol 300 mg tablet 300 mg PO QHS GOUT 07/28/22 [History Last Taken 08/15/22] insulin lispro 100 unit/mL subcutaneous pen (Humalog KwikPen (U-100) Insulin) 10 unit subcut TIDCM DM 07/28/22 [History Last Taken 3 Weeks Ago ~07/26/22] triamcinolone acetonide 0.1 % topical cream 1 applic topical BID RASH 07/28/22 [History Last Taken 07/27/22] cetirizine 10 mg tablet 10 mg PO QHS allergies 08/02/22 [History Last Taken 07/28/22] metolazone 2.5 mg tablet 2.5 mg PO DAILY #30 tabs 08/06/22 [Rx Last Taken Unknown] Allergy/AdvReac Type Severity Reaction Status Date / Time adhesive tape Allergy Rash Verified 08/16/22 09:47 codeine Allergy rash Verified 08/16/22 09:47 levofloxacin [From Levaquin] Allergy hives and Verified 08/16/22 09:47 swelling oxycodone Allergy hives Verified 08/16/22 09:47 Family History Mother Breast cancer Father Prostate cancer Surgical History History of cardiac catheterization History of meatotomy of ureter Social History Smoking Status: Former smoker how long ago did patient quit smokin years alcohol intake: never substance use type: does not use caffeine: No ROS ROS ED ROS Narrative REVIEW OF SYSTEMS: Unless otherwise stated in this report the patient's positive and negative responses for review of systems for constitutional, eyes, ENT, cardiovascular, respiratory, gastrointestinal, neurological, , musculoskeletal, and integument systems and related systems to the presenting problem are either stated in the history of present illness or were not p ertinent or were negative for the symptoms and/or complaints related to the presenting medical problem. EXAM Physical Exam Narrative Exam Narrative: Vital signs reviewed and patient is not hypoxic. General: The patient appears well and in no apparent distress. Patient is r esting comfortably on cart. Not toxic, lethargic, or listless. Patient is wearing 3 L nasal cannula Skin: Warm, dry, no pallor noted. There is no rash noted. Head: Normocephalic, atraumatic Eye: Normal conjunctiva, no drainage, EOMI. PERRL. Ears, Nose, Mouth, and Throat: oral mucosa is moist. Nares patent. Mouth without vesicles. Ear canals patent. Tm's without Erythema Cardiovascular: Regular Rate and Rhythm, no murmurs, gallops, or rubs Respiratory: Patient is in no distress, no accessory muscle use, lungs are clear to auscultation, no wheezing, rales or rhonchi Back: non-tender, no CVA tenderness bilaterally to percussion. NO CTLS midline or paracervicl tenderness to palpation. GI: Soft, obese, nonpitting edema to his abdomen, no tenderness to palpation, no masses appreciated. No rebound, guarding, or rigidity noted. Musculoskeletal: The patient has full range of motion of all extremities and joints with no difficulty. Patient has 2+ pitting edema to bilateral lower extremities, equal, bilateral. No unilateral swelling to lower extremities patient has no motor, no sensory deficits. Neurological: A&O x4, normal speech, no focal neurological deficits. Psychiatric: Cooperative Const Vital Signs: 08/16/22 09:47 08/16/22 10:21 08/16/22 11:18 Temperature 97.6 F L Temperature Source Temporal Pulse Rate 68 Respiratory Rate 16 Respiratory Effort Non-Labored Respiratory Pattern Normal Blood Pressure 99/49 L Blood Pressure Mean 65 Pulse Ox 99 Oxygen Delivery Method Nasal Cannula Nasal Cannula Oxygen Flow Rate (L/min) 2 2 MDM MDM Lab Data Attestation: I reviewed the patient's lab results. Labs: Laboratory Results - last 24 hr 08/16/22 08/16/22 08/16/22 10:20 10:20 10:20 WBC 8.4 RBC 4.47 L Hgb 11.3 L Hct 35.9 L MCV 80.3 MCH 25.3 L MCHC 31.5 L D RDW Std Deviation 57.5 H RDW Coeff of Brina 20.3 H Plt Count 246 MPV 10.3 Immature Gran % (Auto) 1.200 H Neut % (Auto) 71.4 H Lymph % (Auto) 7.9 L [place] % (Auto) 13.5 H Eos % (Auto) 5.1 H Baso % (Auto) 0.9 Absolute Neuts (auto) 6.0 Absolute Lymphs (auto) 0.67 L Nucleated RBC % 0 Anisocytosis 1+ PT INR Sodium 124 L Potassium 4.9 Chloride 83 L Carbon Dioxide 27.0 Anion Gap 14 BUN 81 H Creatinine 7.10 H Estim Creat Clear Calc 12.75 Est GFR (MDRD) Af Amer 10 L Est GFR (MDRD) Non-Af 9 L BUN/Creatinine Ratio 11.4 Glucose 123 H Calcium 8.4 L Magnesium 2.7 H Troponin I High Sens 13 B-Natriuretic Peptide 59.4 08/16/22 10:20 WBC RBC Hgb Hct MCV MCH MCHC RDW Std Deviation RDW Coeff of Brina Plt Count MPV Immature Gran % (Auto) Neut % (Auto) Lymph % (Auto) [place] % (Auto) Eos % (Auto) Baso % (Auto) Absolute Neuts (auto) Absolute Lymphs (auto) Nucleated RBC % Anisocytosis PT 22.7 H INR 2.0 Sodium Potassium Chloride Carbon Dioxide Anion Gap BUN Creatinine Estim Creat Clear Calc Est GFR (MDRD) Af Amer Est GFR (MDRD) Non-Af BUN/Creatinine Ratio Glucose Calcium Magnesium Troponin I High Sens B-Natriuretic Peptide Radiography Chest X-Ray - ED: Read by ED Physician (Chest x-ray shows no acute cardiopulmonary disease, no infiltrate, no effusion) Diagnostic Testing: Clinical Impression(s) from Imaging Studies Chest X-Ray 08/16/22 11:01 IMPRESSION: Interval clearing of right pleural fluid and improvement of compressive atelectasis of the right lung base when compared to 08/03/2022. Electronically Signed: Wilbur Hare MD at 12:37 EDT , Treatment and Re-Evaluation :: Patient was given 1 L of IV fluids, along with maintenance fluids. Patient has significant increase of his BUN and creatinine from Wednesday till today. Case was discussed with Dr. Espinal. Dr Espinal came to see and evaluate this patient in the ER as well. Patient will be admitted for acute renal failure, dehydration. Patient says that he had approximate 20 L of fluid taken off with him several weeks ago, he has only been drinking 6 cups of water in the last 1.5 trying to not become fluid overloaded again. Patient admitted for further evaluation, [facility] ration, and improvement of kidney failure Discharge Plan Triage Chief Complaint: General Illness ED Provider: Nader Swanson Dx/Rx/DC Orders Clinical Impression: Acute renal failure, Acute dehydration, Shaking Primary Care Provider: Al Mondragon Disposition Disposition: Acute Care Hospital [facility]
[2022-08-16 11:13] LABS: Absolute Lymphocyte Count 0.67 X10^3/uL (0.83-4.51); Basophil# 0.08 X10^3/uL; Basophil% 0.9 % (0-1); Eosinophil# 0.43 X10^3/uL; Eosinophils% 5.1 % (0-5); Hematocrit 35.9 % (40-54); Hemoglobin 11.3 g/dL (13.0-16.5); Lymphocyte # 0.67 X10^3/ul (0.83-4.51); Lymphocyte % 7.9 % (19-41); Mean Corp Hgb Conc 31.5 g/dL (32-36); Mean Corpuscular Hgb 25.3 pg (27.0-32.0); Mean Corpuscular Volume 80.3 fL (80-94); Mean Platelet Vol. 10.3 fl (6.2-12.0); Monocyte# 1.14 X10^3/uL; Monocyte% 13.5 % (0-10); NRBC Flagged by Analyzer 0 % (0-5); Neutrophil # 6.01 X10^3/uL (2.7-7.7); Neutrophil % 71.4 % (47-70); POSITIVE MORPHOLOGY YES; Platelet Count 246 K/mm3 (150-450); RBC Distribution Width CV 20.3 % (11.6-14.6); RBC Distribution Width SD 57.5 fl (35.1-43.9); Red Blood Count 4.47 M/mm3 (4.6-6.2); White Blood Count 8.4 K/mm3 (4.4-11.0)
[2022-08-16 11:15] LABS: Differential Indicated SCAN CRITERIA MET
--- NOTE | 2022-08-16 11:30 | EX.ED.DYSGE1 ---
HPI History of Present Illness Chief Complaint: General Illness [facility] Medical History Asthma BiPAP (biphasic positive airway pressure) dependence Cardiology follow-up encounter Cellulitis of right leg COPD (chronic obstructive pulmonary disease) COPD exacerbation Diabetes Essential (primary) hypertension Excessive bleeding Exogenous obesity Former smoker Hematuria High cholesterol History of abdominal paracentesis History of atrial fibrillation History of echocardiogram History of edema History of pain when walking History of stress test Hoarseness Hypercholesteremia Insulin dependent diabetes mellitus Kidney stones Leg cramps Longstanding persistent atrial fibrillation Lymphedema Mild intermittent asthma Morbid obesity due to excess calories Neuropathy Obstructive sleep apnea MILAGRO (obstructive sleep apnea) Right bundle branch block (RBBB) Sciatica Seasonal allergies Secondary pulmonary arterial hypertension Shortness of breath Shortness of breath on exertion Sleep apnea Super-super obese Swelling of lower limb Type 2 diabetes mellitus Venous hypertension, chronic Venous hypertension, chronic, with ulcer and inflammation Venous insufficiency Venous ulcer of right leg Vertigo Wears glasses Home Medications atorvastatin 10 mg tablet 10 mg PO QHS cholesterol 01/29/15 [History Last Taken 07/27/22] lisinopril 5 mg tablet 5 mg PO DAILY blood pressure 01/29/15 [History Last Taken 07/28/22] betaxolol 10 mg tablet 10 mg PO DAILY BP 03/03/17 [History Last Taken 07/28/22] metformin 1,000 mg tablet 1,000 mg PO BID diabetes 03/03/17 [History Last Taken 07/28/22] meclizine 25 mg tablet 25 mg PO DAILY PRN Vertigo 8 days #32 tabs 08/08/18 [History Last Taken 07/28/22] albuterol sulfate 90 mcg/actuation aerosol inhaler (ProAir HFA) 2 puff inhalation Q4H PRN shortness of breath or wheezing 12/19/18 [History Last Taken 06/03/19 19:30] fluticasone propionate 50 mcg/actuation nasal spray,suspension 2 spray NASAL DAILY PRN Allergies 03/14/19 [History Last Taken 07/27/22] insulin glargine U-300 conc 300 unit/mL (1.5 mL) subcutaneous pen (Toujeo SoloStar U-300 Insulin) 50 units SQ DAILY diabetes 03/14/19 [History Last Taken 07/25/22] gabapentin 300 mg capsule 300 mg PO TID nerve pain 06/04/19 [History Last Taken 07/28/22] glimepiride 4 mg tablet 4 mg PO DAILY diabetes 06/04/19 [History Last Taken 07/28/22] warfarin 1 mg tablet 10 mg PO DINNER 08/28/20 [History Last Taken 07/27/22] furosemide 80 mg tablet 80 mg PO BID 11/19/21 [History Last Taken 07/28/22] fluticasone fur. 200 mcg-umeclid 62.5 mcg-vilant 25 mcg inhalat.powder (Trelegy Ellipta) 1 inh inhalation DAILY #60 ea 01/07/22 [Rx Last Taken 07/28/22] montelukast 10 mg tablet 10 mg PO QHS allergies #30 tabs 01/26/22 [Rx Last Taken 07/27/22] diltiazem HCl 240 mg capsule,24 hr,extended release 240 mg PO DAILY heart #30 caps 04/29/22 [Rx Last Taken 07/28/22] PEP device #1 ea 05/18/22 [Rx Last Taken Unknown] IMMUNE DEFENCE 1 tab PO/SL DAILY SUPPLEMENT 07/28/22 [History Last Taken 07/27/22] [place] 3 1 tab PO/SL DAILY SUPPLEMENT 07/28/22 [History Last Taken 07/27/22] Probiotic 1 cap PO/SL DAILY SUPPLEMENT 07/28/22 [History Last Taken 07/27/22] Ubiquinol/Vitamin D 1 tab PO/SL DAILY SUPPLEMENT 07/28/22 [History Last Taken 07/27/22] allopurinol 300 mg tablet 300 mg PO QHS GOUT 07/28/22 [History Last Taken 07/27/22] insulin lispro 100 unit/mL subcutaneous pen (Humalog KwikPen (U-100) Insulin) 10 unit subcut TIDCM DM 07/28/22 [History Last Taken 07/25/22] triamcinolone acetonide 0.1 % topical cream 1 applic topical BID RASH 07/28/22 [History Last Taken 07/27/22] cetirizine 10 mg tablet 10 mg PO QHS allergies 08/02/22 [History Last Taken 07/28/22] cephalexin 500 mg capsule 500 mg PO TID 7 days #21 caps 08/06/22 [Rx Last Taken Unknown] metolazone 2.5 mg tablet 2.5 mg PO DAILY #30 tabs 08/06/22 [Rx Last Taken Unknown] Allergy/AdvReac Type Severity Reaction Status Date / Time adhesive tape Allergy Rash Verified 08/16/22 09:47 codeine Allergy rash Verified 08/16/22 09:47 levofloxacin [From Levaquin] Allergy hives and Verified 08/16/22 09:47 swelling oxycodone Allergy hives Verified 08/16/22 09:47 Family History Mother Breast cancer Father Prostate cancer Surgical History History of cardiac catheterization History of meatotomy of ureter Social History Smoking Status: Former smoker how long ago did patient quit smokin years alcohol intake: never substance use type: does not use caffeine: No EXAM Physical Exam Const Vital Signs: 08/16/22 09:47 08/16/22 10:21 08/16/22 11:18 Temperature 97.6 F L Temperature Source Temporal Pulse Rate 68 Respiratory Rate 16 Respiratory Effort Non-Labored Respiratory Pattern Normal Blood Pressure 99/49 L Blood Pressure Mean 65 Pulse Ox 99 Oxygen Delivery Method Nasal Cannula Nasal Cannula Oxygen Flow Rate (L/min) 2 2 MDM MDM Lab Data Attestation: I reviewed the patient's lab results. Lab results narrative: Patient's BUN and creatinine has changed significantly in 2 days. Patient's BUN/creatinine was 54/3.7 on Wednesday, 2 days ago. Patient's BUN and creatinine today are 81/7.1. Potassium 4.9, sodium 124. Labs: Laboratory Results - last 24 hr 08/16/22 08/16/22 08/16/22 10:20 10:20 10:20 WBC 8.4 RBC 4.47 L Hgb 11.3 L Hct 35.9 L MCV 80.3 MCH 25.3 L MCHC 31.5 L D RDW Std Deviation 57.5 H RDW Coeff of Brina 20.3 H Plt Count 246 MPV 10.3 Immature Gran % (Auto) 1.200 H Neut % (Auto) 71.4 H Lymph % (Auto) 7.9 L [place] % (Auto) 13.5 H Eos % (Auto) 5.1 H Baso % (Auto) 0.9 Absolute Neuts (auto) 6.0 Absolute Lymphs (auto) 0.67 L Nucleated RBC % 0 Anisocytosis 1+ Sodium 124 L Potassium 4.9 Chloride 83 L Carbon Dioxide 27.0 Anion Gap 14 BUN 81 H Creatinine 7.10 H Estim Creat Clear Calc 12.75 Est GFR (MDRD) Af Amer 10 L Est GFR (MDRD) Non-Af 9 L BUN/Creatinine Ratio 11.4 Glucose 123 H Calcium 8.4 L Magnesium 2.7 H Troponin I High Sens 13 B-Natriuretic Peptide 59.4 EKG Initial EKG: Comments: EKG interpretation. bradycardia at 46 beats a minute. Irregular irregular at 46 beats a minute. Patient has a history of A-fib. Treatment and Re-Evaluation :: Patient has been given 1 L of IV fluids, patient is currently getting maintenance fluids. Patient will be admitted to [facility] to Dr. Espinal for dehydration acute renal failure. Patient is not on dialysis. Patient has been on fluid restriction for the past 1.5 weeks. Patient has been drinking only 6 cups of water a day. Patient just did have 20 L of fluid taken off for him several weeks ago for fluid overload. Patient will be admitted for continuous IV fluids and hydration. Patient sodium is 124 as well, this is being replaced and normal saline Discharge Plan Triage Chief Complaint: General Illness ED Provider: Nader Swanson Dx/Rx/DC Orders Clinical Impression: Acute renal failure, Acute dehydration, Shaking Prescriptions: No Action meclizine 25 mg tablet 25 mg PO DAILY PRN (Reason: Vertigo) 8 Days Qty: 32 Label Comments: 1 (ONE) TABLET EVERY SIX HOURS, NEEDED albuterol sulfate [ProAir HFA] 90 mcg/actuation HFA aerosol inhaler 2 puff INHALATION Q4H PRN (Reason: shortness of breath or wheezing) furosemide 80 mg tablet 80 mg PO BID (DME) PEP device See Rx Instructions .ROUTE .MEDSUPPLY Qty: 1 0RF Rx Instructions: with training atorvastatin 10 MG tablet 10 mg PO QHS Label Comments: cholesterol lisinopril 5 MG tablet 5 mg PO DAILY Label Comments: blood pressure metformin 1,000 MG tablet 1,000 mg PO BID betaxolol 10 MG tablet 10 mg PO DAILY fluticasone propionate 1 SPRAY spray,suspension 2 spray NASAL DAILY PRN (Reason: Allergies) Jean Paul Walsh U-300 Insulin 300 UNIT/ML insulin pen 50 units SQ DAILY glimepiride 4 MG tablet 4 mg PO DAILY gabapentin 300 MG capsule 300 mg PO TID warfarin 1 mg tablet 10 mg PO DINNER triamcinolone acetonide 0.1 % Cream 1 applic TOPICAL BID allopurinol 300 mg tablet 300 mg PO QHS insulin lispro [Humalog KwikPen Insulin] 100 unit/mL insulin pen 10 unit SUBCUT TIDCM IMMUNE DEFENCE 1 tab PO/SL DAILY [place] 3 1 tab PO/SL DAILY Probiotic 1 cap PO/SL DAILY Ubiquinol/Vitamin D 1 tab PO/SL DAILY cetirizine 10 mg Tablet 10 mg PO QHS metolazone 2.5 mg Tablet 2.5 mg PO DAILY Qty: 30 0RF cephalexin 500 mg capsule 500 mg PO TID 7 Days Qty: 21 0RF Rx Instructions: First dose to start on 08/07/2022 Trelegy Ellipta 200-62.5-25 mcg blister with device 1 inh INHALATION DAILY Qty: 60 6RF montelukast 10 mg tablet 10 mg PO QHS Qty: 30 6RF diltiazem HCl 240 mg capsule,extended release 24 hr 240 mg PO DAILY Qty: 30 11RF Primary Care Provider: Al Mondragon Referrals: Al Mondragon MD [Primary Care Provider] -
[2022-08-16 11:31] LABS: BNP,B-Type NATRIURETIC PEPTIDE 59.4 pg/mL (0-100)
[2022-08-16 11:35] LABS: Anion Gap 14 (5-15); BUN 81 mg/dL (7-18); BUN/Creat Ratio 11.4 RATIO (10-20); Calcium,Total 8.4 mg/dL (8.5-10.1); Chloride 83 mmol/L (98-107); EST Glomerular Filtration Rate 9 mL/min (>60); Est Glom Filt Rate - Afr Amer 10 mL/min (>60); Estimated Creatinine Clearance 12.75 ml/min; Glucose 123 mg/dL (74-106); Magnesium 2.7 mg/dL (1.6-2.6); Potassium 4.9 mmol/L (3.5-5.1); Sodium Level 124 mmol/L (136-145); Troponin-I HS (w/2H Reflex) 13 pg/mL (3.0-78.0)
[2022-08-16 11:44] LABS: Anisocytosis 1+
--- NOTE | 2022-08-16 11:52 | PCM.HP.STD ---
[facility] - General General Date of Admission: 08/16/22 Date of Service: 08/16/22 Chief Complaint: Decreased urine output and feeling jittery [facility] Narrative MARIA DE JESUS ROSARIO, is a 57 M with past medical history significant for recent admission for congestive heart failure. Patient apparently lost 20 pounds during his hospital stay he was discharged on diuretics. Since being discharged patient has noticed decreasing urine output. Patient also did experience being jittery. Patient had apparently lost 20 pounds during his hospital stay. His BUN on 08/12/2022 was 34 was 81 on admission. His creatinine went from 1.45 on 08/13/2019 23-7.10 on admission. Patient was started on IV fluids admitted to regular nursing floor for further management [facility] Medical History Asthma BiPAP (biphasic positive airway pressure) dependence Cardiology follow-up encounter Cellulitis of right leg COPD (chronic obstructive pulmonary disease) COPD exacerbation Diabetes Essential (primary) hypertension Excessive bleeding Exogenous obesity Former smoker Hematuria High cholesterol History of abdominal paracentesis History of atrial fibrillation History of echocardiogram History of edema History of pain when walking History of stress test Hoarseness Hypercholesteremia Insulin dependent diabetes mellitus Kidney stones Leg cramps Longstanding persistent atrial fibrillation Lymphedema Mild intermittent asthma Morbid obesity due to excess calories Neuropathy Obstructive sleep apnea [place] (obstructive sleep apnea) Right bundle branch block (RBBB) Sciatica Seasonal allergies Secondary pulmonary arterial hypertension Shortness of breath Shortness of breath on exertion Sleep apnea Super-super obese Swelling of lower limb Type 2 diabetes mellitus Venous hypertension, chronic Venous hypertension, chronic, with ulcer and inflammation Venous insufficiency Venous ulcer of right leg Vertigo Wears glasses Home Medications atorvastatin 10 mg tablet 10 mg PO QHS cholesterol 01/29/15 [History Last Taken 07/27/22] lisinopril 5 mg tablet 5 mg PO DAILY blood pressure 01/29/15 [History Last Taken 07/28/22] betaxolol 10 mg tablet 10 mg PO DAILY BP 03/03/17 [History Last Taken 07/28/22] metformin 1,000 mg tablet 1,000 mg PO BID diabetes 03/03/17 [History Last Taken 07/28/22] albuterol sulfate 90 mcg/actuation aerosol inhaler (ProAir HFA) 2 puff inhalation Q4H PRN shortness of breath or wheezing 12/19/18 [History Last Taken 06/03/19 19:30] fluticasone propionate 50 mcg/actuation nasal spray,suspension 2 spray NASAL DAILY PRN Allergies 03/14/19 [History Last Taken 07/27/22] gabapentin 300 mg capsule 300 mg PO TID nerve pain 06/04/19 [History Last Taken 07/28/22] glimepiride 4 mg tablet 4 mg PO DAILY diabetes 06/04/19 [History Last Taken 07/28/22] warfarin 1 mg tablet 10 mg PO DINNER 08/28/20 [History Last Taken 07/27/22] furosemide 80 mg tablet 80 mg PO BID 11/19/21 [History Last Taken 07/28/22] fluticasone fur. 200 mcg-umeclid 62.5 mcg-vilant 25 mcg inhalat.powder (Trelegy Ellipta) 1 inh inhalation DAILY #60 ea 01/07/22 [Rx Last Taken 07/28/22] montelukast 10 mg tablet 10 mg PO QHS allergies #30 tabs 01/26/22 [Rx Last Taken 07/27/22] diltiazem HCl 240 mg capsule,24 hr,extended release 240 mg PO DAILY heart #30 caps 04/29/22 [Rx Last Taken 07/28/22] allopurinol 300 mg tablet 300 mg PO QHS GOUT 07/28/22 [History Last Taken 07/27/22] insulin lispro 100 unit/mL subcutaneous pen (Humalog KwikPen (U-100) Insulin) 10 unit subcut TIDCM DM 07/28/22 [History Last Taken 07/25/22] triamcinolone acetonide 0.1 % topical cream 1 applic topical BID RASH 07/28/22 [History Last Taken 07/27/22] cetirizine 10 mg tablet 10 mg PO QHS allergies 08/02/22 [History Last Taken 07/28/22] metolazone 2.5 mg tablet 2.5 mg PO DAILY #30 tabs 08/06/22 [Rx Last Taken Unknown] Allergy/AdvReac Type Severity Reaction Status Date / Time adhesive tape Allergy Rash Verified 08/16/22 09:47 codeine Allergy rash Verified 08/16/22 09:47 levofloxacin [From Levaquin] Allergy hives and Verified 08/16/22 09:47 swelling oxycodone Allergy hives Verified 08/16/22 09:47 Family History Mother Breast cancer Father Prostate cancer Surgical History History of cardiac catheterization History of meatotomy of ureter Social History Smoking Status: Former smoker how long ago did patient quit smokin years alcohol intake: never substance use type: does not use caffeine: No ROS ROS Narrative GENERAL: denies fever, chills, night sweats, weight loss, anorexia HEENT: denies headache, sinus congestion, or drainage, dysphagia RESPIRATORY: denies cough, sputum production, shortness of breath, dyspnea on exertion CARDIAC: denies chest pain, palpitations, orthopnea, PND GASTROINTESTINAL: denies abdominal pain, nausea, vomiting, melena, GENITOURINARY: Decreased urine output EXTREMITY: denies swelling MUSCULOSKELETAL: denies current joint pain or tenderness NEUROLOGIC: denies focal numbness, weakness, tingling HEMATOLOGIC: denies easy bruising and/or hemorrhage INTEGUMENT: denies rashes PSYCHIATRIC: denies suicidal or homicidal ideation Vital Signs Vital Signs Vital Signs: 08/16/22 09:47 08/16/22 10:21 08/16/22 11:18 Temperature 97.6 F L Temperature Source Temporal Pulse Rate 68 Respiratory Rate 16 Respiratory Effort Non-Labored Respiratory Pattern Normal Blood Pressure 99/49 L Blood Pressure Mean 65 Pulse Ox 99 Oxygen Delivery Method Nasal Cannula Nasal Cannula Oxygen Flow Rate (L/min) 2 2 Weight Weight: 183.1 kg Body Mass Index (BMI) 54.7 Physical Exam Narrative GENERAL: cooperative HEENT: Atraumatic; normocephalic EYES; Anicteric, Normal Conjunctiva NECK; supple, normal thyroid, RESPIRATORY: Diminished to auscultation CARDIOVASCULAR: Regular S1 S2, GI: soft, normoactive bowel sounds, : No Renal angle tenderness; EXTREMITIES: No edema, no clubbing, MUSCULOSKELETAL: no muscle wasting NEURO: Awake; no lateralizing signs. SKIN: Chronic lower extremity stasis dermatitis PSYCH; Flat affect Results Lab / Micro Data Result Diagrams: 08/16/22 10:20 08/16/22 10:20 Labs: Laboratory Results - last 24 hr 08/16/22 10:20: WBC 8.4, RBC 4.47 L, Hgb 11.3 L, Hct 35.9 L, MCV 80.3, MCH 25.3 L, MCHC 31.5 L D, RDW Std Deviation 57.5 H, RDW Coeff of Brina 20.3 H, Plt Count 246, MPV 10.3, Immature Gran % (Auto) 1.200 H, Neut % (Auto) 71.4 H, Lymph % (Auto) 7.9 L, [place] % (Auto) 13.5 H, Eos % (Auto) 5.1 H, Baso % (Auto) 0.9, Absolute Neuts (auto) 6.0, Absolute Lymphs (auto) 0.67 L, Nucleated RBC % 0, Anisocytosis 1+ 08/16/22 10:20: Sodium 124 L, Potassium 4.9, Chloride 83 L, Carbon Dioxide 27.0, Anion Gap 14, BUN 81 H, Creatinine 7.10 H, Estim Creat Clear Calc 12.75, Est GFR (MDRD) Af Amer 10 L, Est GFR (MDRD) Non-Af 9 L, BUN/Creatinine Ratio 11.4, Glucose 123 H, Calcium 8.4 L, Magnesium 2.7 H, Troponin I High Sens 13 08/16/22 10:20: B-Natriuretic Peptide 59.4 Assessment & Plan Assessment/Plan (1) Acute renal failure: PLAN: Plan Patient is a 57-year-old gentleman admitted with decreased urine output found to have TRESA 1. Acute kidney injury ? Do suspect prerenal azotemia from aggressive diuresis as well as patient medications. Patient potential nephrotoxic medications including furosemide, metolazone, lisinopril and metformin held started on IV fluid with monitoring of electrolytes ordered.. Also ordered renal and bladder ultrasound to rule out obstructive uropathy with consultation placed to nephrology 2. Hyponatremia -suspect to be secondary to hypovolemic hyponatremia patient is on IV fluid with monitoring of electrolytes ordered 3. Chronic congestive heart failure with preserved ejection fraction ? Patient diuretics held in view of worsening kidney function 4. Chronic A-fib ? Rate controlled patient is on systemic anticoagulation with warfarin ordered INR to assess with dose adjustment 5. Diabetes mellitus type II -patient's oral hypoglycemics held. Placed on long acting insulin, Accu-Cheks a.c. and at bedtime and covered with sliding scale insulin 6. Obstructive sleep apnea ? On CPAP at night 7. Class III obesity with BMI 54.7 ? Complicating care weight loss advised 8. Nonalcoholic fatty liver disease ? Secondary to combination of patient underlying diabetes as well as obesity monitoring 9. Essential hypertension ? Did continue home meds except for lisinopril in view of worsening kidney function 10. Dyslipidemia -Patient is on statin therapy, continued at home dose 11. Chronic vertigo ? Patient is on meclizine as needed 12. DVT prophylaxis ? Patient is on systemic anticoagulation with warfarin Time spent in the patient's overall evaluation,decision-making process, review of diagnostic data, adjustment of management, discussion with other providers, nursing nursing and ancillary staff involved in patient's care documentation, 77Minutes Charges/Coding Visit Charges Inpatient E&M: 75627 Init Hosp L3
[2022-08-16] MEDS: 0.9% Normal Saline 1,000 ML 1000 ML IV (11:54)
[2022-08-16] MEDS: Aspirin 81 MG TAB.CHEW 324 MG PO (11:54)
[2022-08-16 12:31] LABS: Prothrombin Time (Protime)PT. 22.7 SECONDS (11.7-14.9)
[2022-08-16 13:11] LABS: Reflex Troponin-HS? (from REC) Y
--- NOTE | 2022-08-16 13:19 | NURSING ---
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
--- NOTE | 2022-08-16 13:30 | NURSING ---
report called to [facility]cu primary Rn. Swapna primary RN medsurg aware. pt being transported on tele monitoring.
[2022-08-16] MEDS: 0.9% Normal Saline 1,000 ML 150 ML IV ×2 (13:58→21:03)
--- NOTE | 2022-08-16 14:14 | EKG12_ITS ---
Test Reason : BRADYCARDIA Blood Pressure : / mmHG Vent. Rate : 042 BPM Atrial Rate : 000 BPM P-R Int : 000 ms QRS Dur : 178 ms QT Int : 548 ms P-R-T Axes : 000 070 023 degrees QTc Int : 457 ms Atrial fibrillation with slow ventricular response Right bundle branch block Abnormal ECG When compared with ECG of 16-AUG-2022 11:09, MANUAL COMPARISON REQUIRED, DATA IS UNCONFIRMED Confirmed by CHRISTIANO GARCIA, SALLY ([id number]), managing editor MEGHANN PERALTA ([id number]) on 08/18/2022 1:22:12 PM Referred By: YUNI Confirmed By:JOSE ALEJANDRO ALVARADO MD
[2022-08-16] MEDS: Acetaminophen 325 MG Tablet 650 MG PO ×2 (14:49→22:59)
[2022-08-16] MEDS: Gabapentin 100 MG Capsule PO ×2 (14:56→21:07)
[2022-08-16 15:25] LABS: Troponin-I HS 14 pg/mL (3.0-78.0)
[2022-08-16 17:37] LABS: Anion Gap 15 (5-15); BUN 81 mg/dL (7-18); BUN/Creat Ratio 11.1 RATIO (10-20); Calcium,Total 7.8 mg/dL (8.5-10.1); Chloride 86 mmol/L (98-107); Creatinine, Serum 7.31 mg/dL (0.70-1.30); EST Glomerular Filtration Rate 8 mL/min (>60); Est Glom Filt Rate - Afr Amer 10 mL/min (>60); Estimated Creatinine Clearance 12.38 ml/min; Glucose 122 mg/dL (74-106); Potassium 5.4 mmol/L (3.5-5.1); Sodium Level 125 mmol/L (136-145)
--- NOTE | 2022-08-16 20:41 | PCM.HOSP.N ---
Hospitalist Note RN reporting some dark blood in [place], no clots, stable VS. Patient presentation with TRESA with IVF administration and hold on nephrotoxic regimen. RN concern noted over oral intake. At this time will hold on any limits and requesting continued monitoring and parsing out with continued IVFs. RN also noting patient requesting to use his home inhalers instead of the transitioned agents. Requested pharmacy be contacted and notified he has these home agents to be able to continue per his request.
[2022-08-16] MEDS: Loratadine 10 MG Tablet 5 MG PO (21:30)
[2022-08-16] MEDS: Montelukast 10 MG Tablet PO (21:46)
[2022-08-16] MEDS: Allopurinol 300 MG Tablet PO (21:46)
[2022-08-16] MEDS: Atorvastatin Calcium 10 MG Tablet PO (21:46)
[2022-08-17] VITALS (34 sets, daily range): BP systolic 73–130; BP diastolic 29–67; PULSE 44–64; RESP 14–23; TEMP 36.1–36.8; O2SAT 91–98; BMI 55.7
[2022-08-17] MEDS: 0.9% Normal Saline 1,000 ML 150 ML IV (02:46)
--- NOTE | 2022-08-17 03:48 | PCM.HOSP.N ---
Hospitalist Note BP low, also having muscle spasms and discomfort. Will give 500 cc bolus x 1 now and also requested labs including mag, phos be obtained early in case electrolyte disturbance causing muscle pain/spasms.
--- NOTE | 2022-08-17 05:00 | US_ITS ---
STUDY: RENAL ULTRASOUND - COMPLETE REASON FOR EXAM: Male, 57 years old. TRESA TECHNIQUE: Ultrasound evaluation of the kidneys was performed with real-time and static cotter-scale imaging. Limited examination due to the patient''s body habitus. COMPARISON: None. FINDINGS: RIGHT KIDNEY: Normal location of the right kidney, which is normal in size. The right kidney measures 11.1 cm x 6.8 cm x 6.7 cm. There is a normal cortex of the right kidney. The renal cortex measures 1.6 cm. There is no right renal mass or cyst. There are no right renal calculi. There is no right hydronephrosis. DISTAL RIGHT URETER: There is non-visualization of the distal right ureter. There is no demonstrated right ureterovesical junction calculus. There is no demonstrated right ureteral jet. LEFT KIDNEY: Normal location of the left kidney, which is normal in size. The left kidney measures 13.8 cm x 6 cm x 7.8 cm. There is a normal cortex of the left kidney. The renal cortex measures 1.9 cm. There is no left renal mass or cyst. There are no left renal calculi. There is no left hydronephrosis. DISTAL LEFT URETER: There is non-visualization of the distal left ureter. There is no demonstrated left ureterovesical junction calculus. There is no demonstrated left ureteral jet. BLADDER: A Keyes catheter is seen within urinary bladder. The urinary bladder is not adequately distended. US/Kidney and Bladder IMPRESSION: Normal ultrasound of the kidneys. Electronically Signed: Joaquin Bergeron MD at 8:52 EDT ,
[2022-08-17 05:04] LABS: Absolute Lymphocyte Count 0.62 X10^3/uL (0.83-4.51); Absolute Neutrophil Count 7.3 X10^3/uL (2.0-7.7); Basophil# 0.06 X10^3/uL; Basophil% 0.6 % (0-1); Eosinophil# 0.27 X10^3/uL; Eosinophils% 2.9 % (0-5); Hematocrit 31.9 % (40-54); Hemoglobin 10.1 g/dL (13.0-16.5); Lymphocyte # 0.62 X10^3/ul (0.83-4.51); Lymphocyte % 6.6 % (19-41); Mean Corp Hgb Conc 31.7 g/dL (32-36); Mean Corpuscular Hgb 25.3 pg (27.0-32.0); Mean Corpuscular Volume 79.8 fL (80-94); Mean Platelet Vol. 10.2 fl (6.2-12.0); Monocyte# 1.01 X10^3/uL; Monocyte% 10.8 % (0-10); NRBC Flagged by Analyzer 0 % (0-5); Neutrophil # 7.33 X10^3/uL (2.7-7.7); Neutrophil % 78.6 % (47-70); POSITIVE MORPHOLOGY YES; Platelet Count 219 K/mm3 (150-450); RBC Distribution Width CV 20.1 % (11.6-14.6); White Blood Count 9.3 K/mm3 (4.4-11.0)
[2022-08-17 05:15] LABS: International Normalized Ratio 2.3; Prothrombin Time (Protime)PT. 25.8 SECONDS (11.7-14.9)
[2022-08-17 05:20] LABS: Differential Indicated SCAN CRITERIA MET
[2022-08-17 05:27] LABS: Anisocytosis 2+
--- NOTE | 2022-08-17 06:00 | CT_ITS ---
EXAM: CT HEAD WITHOUT INTRAVENOUS CONTRAST CLINICAL INDICATION: Confusion TECHNIQUE: Multiple axial images were obtained of the head without intravenous contrast. This CT exam was performed using one or more of the following dose reduction techniques: automated exposure control, adjustment of the mA and/or kV according to patient size, and/or use of iterative reconstruction technique. RADIATION DOSE: Total DLP: 866.41 mGy-cm. COMPARISON: No relevant prior studies available. FINDINGS: BRAIN AND EXTRA-AXIAL SPACES: Minimal patchy chronic small vessel ischemic changes noted within the subcortical white matter tracts. 1 cm focus of slightly diminished attenuation within the left parietal subcortical white matter, due to asymmetric small vessel disease versus old lacunar infarction. The basal ganglia are symmetric. No intra- or extra-axial hemorrhage. No intracranial mass or mass effect. Posterior fossa structures are unremarkable. Ventricles are appropriate for age. No hydrocephalus. No midline shift. Basal cisterns are patent. BONES/JOINTS: Unremarkable. No discrete lytic or blastic abnormalities. VASCULATURE: Atherosclerotic vascular calcification is present. The middle cerebral arteries are not hyperdense. SINUSES: Incidental retention cyst within the left maxillary antrum. Visualized paranasal sinuses are otherwise clear. No paranasal sinus air-fluid levels. MASTOID AIR CELLS: Unremarkable. Clear. ORBITS: Visualized globes, extraocular muscles, optic nerves and retrobulbar fat appear unremarkable. CT/Brain/Head without Contrast IMPRESSION: Minimal chronic small vessel ischemic changes. No acute findings in the head/brain. Electronically Signed: Alonzo Rothman MD at 7:02 EDT ,
--- NOTE | 2022-08-17 06:01 | CT_ITS ---
EXAM: CT CERVICAL SPINE WITHOUT INTRAVENOUS CONTRAST CLINICAL INDICATION: radiculopathy TECHNIQUE: Helically acquired images were obtained of the cervical spine without intravenous contrast. 2D reformatted images were reviewed. This CT exam was performed using one or more of the following dose reduction techniques: automated exposure control, adjustment of the mA and/or kV according to patient size, and/or use of iterative reconstruction technique. RADIATION DOSE: Total DLP: 1541.09 mGy-cm. COMPARISON: No relevant prior studies available. FINDINGS: LIMITATIONS: Large body habitus with graininess of the lower cervical to upper thoracic images. VERTEBRAE: Straightening of the normal cervical lordosis. No subluxation. No compression fracture, posterior element fracture or facet dislocation. The odontoid is intact. DISCS/SPINAL CANAL/NEURAL FORAMINA: Small marginal osteophytes noted about the C6/7 disc space. There are also small midline posterior osteophytes at C6/7, probably surrounding a central disc protrusion. There is minimal left-sided neural foraminal encroachment at C4/5 and C5/6 by uncinate hypertrophy. SOFT TISSUES: Unremarkable. No prevertebral soft tissue swelling. VASCULATURE: Atherosclerotic vascular calcification is present within the neck. MASTOID AIR CELLS: The visualized mastoid air cells are clear. LUNG APICES: Abnormal density opacifies the dependent portion of the visualized right lung, more dense than typical pleural fluid, and suspicious for infiltrate such as atelectasis and/or pneumonia, but visualization of upper lungs is limited by graininess of the images. Mediastinal lipomatosis is present. CT/Spine Cervical without Contras IMPRESSION: Straightening of the cervical lordosis due to patient positioning or muscle spasm. Mild cervical degenerative changes. No acute fracture or subluxation. Abnormal infiltrate within the dependent portion of the right lung, suspicious for atelectasis and/or pneumonia. This infiltrate is more severe than that seen on the prior chest radiograph of 08/16/2022. Electronically Signed: Alonzo Rothman MD at 7:14 EDT ,
[2022-08-17 06:13] LABS: Anion Gap 14 (5-15); BUN 87 mg/dL (7-18); BUN/Creat Ratio 11.4 RATIO (10-20); Calcium,Total 7.2 mg/dL (8.5-10.1); Chloride 89 mmol/L (98-107); Creatinine, Serum 7.66 mg/dL (0.70-1.30); EST Glomerular Filtration Rate 8 mL/min (>60); Est Glom Filt Rate - Afr Amer 10 mL/min (>60); Estimated Creatinine Clearance 11.82 ml/min; Glucose 106 mg/dL (74-106); Magnesium 2.4 mg/dL (1.6-2.6); Phosphorus 9.9 mg/dL (2.5-4.9); Potassium 6.1 mmol/L (3.5-5.1); Sodium Level 126 mmol/L (136-145)
[2022-08-17 06:21] LABS: Bedside Glucose 110 mg/dL (74-106)
--- NOTE | 2022-08-17 06:22 | RAD_ITS ---
INDICATION: pain EXAMINATION/TECHNIQUE: X-RAY - RIGHT XR Hand Min 3 Views COMPARISON: None. FINDINGS: SOFT TISSUES: No significant soft tissue swelling. Incompletely imaged peripheral venous catheter at distal forearm. BONES/JOINTS: No acute fracture or subluxation. Normal alignment. Preservation of the joint space(s). No suspicious osseous lesion observed. RAD/Hand Min 3 Views IMPRESSION: Negative right hand. Electronically Signed: Ankit Benitez MD at 7:20 EDT ,
--- NOTE | 2022-08-17 06:22 | RAD_ITS ---
INDICATION: pain EXAMINATION/TECHNIQUE: X-RAY - RIGHT XR Wrist Min 3 Views COMPARISON: None. FINDINGS: SOFT TISSUES: No significant soft tissue swelling. Peripheral venous catheter at distal forearm. BONES/JOINTS: No acute fracture or subluxation. Normal alignment. Preservation of the joint space(s). No suspicious osseous lesion observed. RAD/Wrist min 3 Views IMPRESSION: Negative right wrist. Electronically Signed: Ankit Benitez MD at 7:21 EDT ,
--- NOTE | 2022-08-17 06:28 | PCM.HOSP.N ---
Hospitalist Note Patient with RN evaluation request secondary to concerns for confusion and change in status. Upon evaluation patient able to answer orientation questions appropriately but states he feels very odd with ringing in his ears as well as significant bladder discomfort. Catheter irrigated and notable difficulty with return of fluid therefore patient transition to three-way Keyes catheter with clots removed and fluid now only mildly tinged pink. Patient notes significant proved following this. He still does report pain primarily to his right wrist and hand which has been since admission and upon evaluation of records no film was performed thus will obtain this and add some pain medication. Ordered early BMP as well as mag and Phos as noted previously because of patient's complaints of extremity discomfort and spasms. These have since returned with notable hyperkalemia and hyperphosphatemia in the setting of acute kidney injury. Will initiate hyperkalemic orders and discussed with staff with planned notification of nephrology who is already following. In addition given atypical complaints and anticoagulation with Coumadin therapeutic CT of the head obtained with prelim review with no acute findings and given atypical discomfort to the extremities did obtain also cervical spine at the same time which preliminarily appears with no acute findings although patient does have osteophyte and was moving so read will be difficult but awaiting final radiology read of both. Suspect patient complaints are primarily secondary to initially clots with urinary retention and now notable electrolyte disturbances in the setting of acute kidney injury. Vital signs are currently stable. Patient does report feeling improved.
[2022-08-17] MEDS: Gabapentin 100 MG Capsule PO (06:47)
[2022-08-17] MEDS: Dextrose 50%-Water 25 GM/50 ML DISP.SYRIN IV (07:31)
[2022-08-17] MEDS: Sodium Polystyrene Sulfonate 15 GM/60 ML UDC PO ×2 (07:31→11:00)
[2022-08-17 07:32] LABS: Erythrocyte Sedimentation Rate 30 mm/hr (0-20)
[2022-08-17] MEDS: Insulin Lispro 10 UNIT in Syringe 0 ML 6 UNIT IV (07:32)
[2022-08-17] MEDS: Calcium Gluconate 1 GM/10 ML Vial IVP (07:36)
--- NOTE | 2022-08-17 07:45 | CON.PCM.UR_ITS ---
Assessment & Plan Assessment/Plan (1) Gross hematuria: PLAN: 57-year-old male with multiple medical problems who presents the hospital with low to poor urine output for about 2 days elevated creatinine up to 7. He had some hematuria and a Keyes catheter was placed which is now clearing very rapidly on three-way irrigation continue with irrigation until hematuria clears ultrasound imaging is pending will review ultrasound imaging depending on that findings may or may not need more imaging. For now we will follow-up on ultrasound imaging HPI Consult Data Date of Consult: 08/17/22 HPI Narrative Reason for Consultation: Acute renal insufficiency and gross materia HPI Narrative: MARIA DE JESUS ROSARIO, is a 57 M who presents to the hospital with reports that he has not urinated for about 2 days. Was found to have a very high creatinine Keyes catheter was placed for a very small amount of urine and then he had hematuria so continuous bladder irrigation has been started ultrasound imaging is pending at this point. The hematuria is very light. REPLACED BY [facility] Medical History Asthma BiPAP (biphasic positive airway pressure) dependence Cardiology follow-up encounter Cellulitis of right leg COPD (chronic obstructive pulmonary disease) COPD exacerbation Diabetes Essential (primary) hypertension Excessive bleeding Exogenous obesity Former smoker Hematuria High cholesterol History of abdominal paracentesis History of atrial fibrillation History of echocardiogram History of edema History of pain when walking History of stress test Hoarseness Hypercholesteremia Insulin dependent diabetes mellitus Kidney stones Leg cramps Longstanding persistent atrial fibrillation Lymphedema Mild intermittent asthma Morbid obesity due to excess calories Neuropathy Obstructive sleep apnea MILAGRO (obstructive sleep apnea) Right bundle branch block (RBBB) Sciatica Seasonal allergies Secondary pulmonary arterial hypertension Shortness of breath Shortness of breath on exertion Sleep apnea Super-super obese Swelling of lower limb Type 2 diabetes mellitus Venous hypertension, chronic Venous hypertension, chronic, with ulcer and inflammation Venous insufficiency Venous ulcer of right leg Vertigo Wears glasses Home Medications atorvastatin 10 mg tablet 10 mg PO QHS cholesterol 01/29/15 [History Last Taken 08/15/22] lisinopril 5 mg tablet 5 mg PO DAILY blood pressure 01/29/15 [History Last Taken 08/16/22] betaxolol 10 mg tablet 10 mg PO DAILY BP 03/03/17 [History Last Taken 08/16/22] metformin 1,000 mg tablet 1,000 mg PO BID diabetes 03/03/17 [History Last Taken 08/15/22] albuterol sulfate 90 mcg/actuation aerosol inhaler (ProAir HFA) 2 puff inhalation Q4H PRN shortness of breath or wheezing 12/19/18 [History Last Taken 06/03/19 19:30] fluticasone propionate 50 mcg/actuation nasal spray,suspension 2 spray NASAL DAILY PRN Allergies 03/14/19 [History Last Taken 08/15/22] gabapentin 300 mg capsule 300 mg PO TID nerve pain 06/04/19 [History Last Taken 08/16/22] glimepiride 4 mg tablet 4 mg PO DAILY diabetes 06/04/19 [History Last Taken 08/14/22] warfarin 1 mg tablet 10 mg PO DINNER 08/28/20 [History Last Taken 08/15/22] furosemide 80 mg tablet 80 mg PO BID 11/19/21 [History Last Taken 08/16/22] fluticasone fur. 200 mcg-umeclid 62.5 mcg-vilant 25 mcg inhalat.powder (Trelegy Ellipta) 1 inh inhalation DAILY #60 ea 01/07/22 [Rx Last Taken 08/16/22] montelukast 10 mg tablet 10 mg PO QHS allergies #30 tabs 01/26/22 [Rx Last Taken 08/15/22] diltiazem HCl 240 mg capsule,24 hr,extended release 240 mg PO DAILY heart #30 caps 04/29/22 [Rx Last Taken 08/16/22] allopurinol 300 mg tablet 300 mg PO QHS GOUT 07/28/22 [History Last Taken 08/15/22] insulin lispro 100 unit/mL subcutaneous pen (Humalog KwikPen (U-100) Insulin) 10 unit subcut TIDCM DM 07/28/22 [History Last Taken 3 Weeks Ago ~07/26/22] triamcinolone acetonide 0.1 % topical cream 1 applic topical BID RASH 07/28/22 [History Last Taken 07/27/22] cetirizine 10 mg tablet 10 mg PO QHS allergies 08/02/22 [History Last Taken 07/28/22] metolazone 2.5 mg tablet 2.5 mg PO DAILY #30 tabs 08/06/22 [Rx Last Taken Unknown] Allergy/AdvReac Type Severity Reaction Status Date / Time adhesive tape Allergy Rash Verified 08/16/22 09:47 codeine Allergy rash Verified 08/16/22 09:47 levofloxacin [From Levaquin] Allergy hives and Verified 08/16/22 09:47 swelling oxycodone Allergy hives Verified 08/16/22 09:47 Family History Mother Breast cancer Father Prostate cancer Surgical History History of cardiac catheterization History of meatotomy of ureter Social History Smoking Status: Former smoker how long ago did patient quit smokin years alcohol intake: never substance use type: does not use caffeine: No Physical Exam Narrative Obese male Const alert and oriented x3 HEENT Head and Scalp: normocephalic and atraumatic Eyes PERRL Neck no lymphadenopathy General: trachea midline Lymph Lymphatic: no lymphadenopathy noted Resp normal respiratory effort Cardio regular rate Palpation: normal PMI GI non-tender Back/Spine no CVA tenderness Extremity General Extremity: Negative for clubbing, cyanosis or edema Skin No no rashes or lesions noted Neuro Speech: speech normal Psych thought process normal, cooperative and affect normal Lab / Micro Data Result Diagrams: 08/17/22 04:56 08/17/22 04:56 Labs: Laboratory Results - last 24 hr 08/16/22 10:20: WBC 8.4, RBC 4.47 L, Hgb 11.3 L, Hct 35.9 L, MCV 80.3, MCH 25.3 L, MCHC 31.5 L D, RDW Std Deviation 57.5 H, RDW Coeff of Brina 20.3 H, Plt Count 246, MPV 10.3, Immature Gran % (Auto) 1.200 H, Neut % (Auto) 71.4 H, Lymph % (Auto) 7.9 L, [place] % (Auto) 13.5 H, Eos % (Auto) 5.1 H, Baso % (Auto) 0.9, Ab solute Neuts (auto) 6.0, Absolute Lymphs (auto) 0.67 L, Nucleated RBC % 0, An isocytosis 1+ 08/16/22 10:20: Sodium 124 L, Potassium 4.9, Chloride 83 L, Carbon Dioxide 27.0, Anion Gap 14, BUN 81 H, Creatinine 7.10 H, Estim Creat Clear Calc 12.75, Est GFR (MDRD) Af Amer 10 L, Est GFR (MDRD) Non-Af 9 L, BUN/Creatinine Ratio 11.4, Glucose 123 H, Calcium 8.4 L, Magnesium 2.7 H, Troponin I High Sens 13 08/16/22 10:20: B-Natriuretic Peptide 59.4 08/16/22 10:20: PT 22.7 H, INR 2.0 08/16/22 14:13: Troponin I High Sens 14 08/16/22 17:07: Sodium 125 L, Potassium 5.4 H, Chloride 86 L, Carbon Dioxide 24.0, Anion Gap 15, BUN 81 H, Creatinine 7.31 H, Estim Creat Clear Calc 12.38, Est GFR (MDRD) Af Amer 10 L, Est GFR (MDRD) Non-Af 8 L, BUN/Creatinine Ratio 11.1, Glucose 122 H, Calcium 7.8 L 08/17/22 04:56: WBC 9.3, RBC 4.00 L, Hgb 10.1 L, Hct 31.9 L, MCV 79.8 L, MCH 25.3 L, MCHC 31.7 L, RDW Std Deviation 57.0 H, RDW Coeff of Brina 20.1 H, Plt Count 219, MPV 10.2, Immature Gran % (Auto) 0.500, Neut % (Auto) 78.6 H, Lymph % (Auto) 6.6 L, [place] % (Auto) 10.8 H, Eos % (Auto) 2.9, Baso % (Auto) 0.6, Absolute Neuts (auto) 7.3, Absolute Lymphs (auto) 0.62 L, Nucleated RBC % 0, Anisocytosis 2+ 08/17/22 04:56: PT 25.8 H, INR 2.3 08/17/22 04:56: Sodium 126 L, Potassium 6.1 H*, Chloride 89 L, Carbon Dioxide 23.0, Anion Gap 14, BUN 87 H, Creatinine 7.66 H*, Estim Creat Clear Calc 11.82, Est GFR (MDRD) Af Amer 10 L, Est GFR (MDRD) Non-Af 8 L, BUN/Creatinine Ratio 11.4, Glucose 106, Calcium 7.2 L, Phosphorus 9.9 H*, Magnesium 2.4 08/17/22 04:56: ESR 30 H 08/17/22 05:38: POC Glucose 110 H 08/17/22 07:00: Sodium Cancelled, Potassium Cancelled, Chloride Cancelled, Carbon Dioxide Cancelled, Anion Gap Cancelled, BUN Cancelled, Creatinine Cancel led, Est GFR (MDRD) Af Amer Cancelled, Est GFR (MDRD) Non-Af Cancelled, BUN/Creatinine Ratio Cancelled, Glucose Cancelled, Calcium Cancelled, C-React Prot Ext Range 36.70 H Radiology Impression Chest X-Ray 08/16/22 11:01 IMPRESSION: Interval clearing of right pleural fluid and improvement of compressive atelectasis of the right lung base when compared to 08/03/2022. Electronically Signed: Wilbur Hare MD at 12:37 EDT , Brain CT 08/17/22 06:00 IMPRESSION: Minimal chronic small vessel ischemic changes. No acute findings in the head/brain. Electronically Signed: Alonzo Rothman MD at 7:02 EDT , Cervical Spine CT 08/17/22 06:01 IMPRESSION: Straightening of the cervical lordosis due to patient positioning or muscle spasm. Mild cervical degenerative changes. No acute fracture or subluxation. Abnormal infiltrate within the dependent portion of the right lung, suspicious for atelectasis and/or pneumonia. This infiltrate is more severe than that seen on the prior chest radiograph of 08/16/2022. Electronically Signed: Alonzo Rothman MD at 7:14 EDT , Hand X-Ray 08/17/22 06:22 IMPRESSION: Negative right hand. Electronically Signed: Ankit Benitez MD at 7:20 EDT , Wrist X-Ray 08/17/22 06:22 IMPRESSION: Negative right wrist. Electronically Signed: Ankit Benitez MD at 7:21 EDT ,
--- NOTE | 2022-08-17 08:09 | NURSING ---
Patient with low pulse and BP throughout night working with Dr. Cope and charge nurse to stabilize. Fluids ordered Patient asymptomatic, Alert and Oriented On 2L bled through cpap. Oxygen saturation WNL. Complaining of pain in limbs and muscle twitching. Has solano with hematuria and low output of 150ml. Order obtained to irrigate and irrigated solano x2 Around 0530 this nurse was assessing patient and patient unable to follow commands. Speech garbled. Cpap removed and patient placed on 2L Patient unable to state where located or date. Words slurred and garbled. Charge nurse Be called into room and [facility] called. Blood sugar 110. Patient stating abdominal pain cath flushed and clots visible. Solano removed and 20F placed with a continuous bladder irrigation. Patient draining light pink fluid. Patient taken down for CT of head an neck and Xray on right hand due to increasing pain. Urology saw patient and updated. Dr. Champagne updated via phone and states for repeat BMP at 1530 and possible ICU transfer due to low BP. Charge nurse Wilbur Escudero notified.
[2022-08-17] MEDS: Albuterol *CONC* 2.5mg/0.5mL VIAL.NEB. 10 MG INHALATION (08:16)
--- NOTE | 2022-08-17 08:30 | EKG12_ITS ---
Test Reason : STAT Blood Pressure : / mmHG Vent. Rate : 056 BPM Atrial Rate : 000 BPM P-R Int : 000 ms QRS Dur : 178 ms QT Int : 510 ms P-R-T Axes : 000 071 019 degrees QTc Int : 492 ms Atrial fibrillation with slow ventricular response Right bundle branch block Abnormal ECG Confirmed by CHRISTIANO GARCIA, SALLY ([id number]), field map editor MEGHANN PERALTA ([id number]) on 08/18/2022 1:16:58 PM Referred By: YUNI Confirmed By:JOSE ALEJANDRO ALVARADO MD
[2022-08-17] MEDS: 0.9% Normal Saline 1,000 ML 75 ML IV (10:11)
[2022-08-17 10:43] LABS: Anion Gap 15 (5-15); BUN 88 mg/dL (7-18); BUN/Creat Ratio 10.8 RATIO (10-20); Calcium,Total 7.3 mg/dL (8.5-10.1); Chloride 87 mmol/L (98-107); Creatinine, Serum 8.18 mg/dL (0.70-1.30); EST Glomerular Filtration Rate 7 mL/min (>60); Est Glom Filt Rate - Afr Amer 9 mL/min (>60); Estimated Creatinine Clearance 11.07 ml/min; Glucose 166 mg/dL (74-106); Potassium 6.4 mmol/L (3.5-5.1); Sodium Level 123 mmol/L (136-145)
[2022-08-17] MEDS: HYDROmorphone 0.5 MG/0.5 ML SYRINGE 0.25 MG IV (10:59)
[2022-08-17 11:00] LABS: Uric Acid 7.8 mg/dL (3.5-7.2)
[2022-08-17] MEDS: predniSONE 20 MG Tablet 40 MG PO (11:00)
--- NOTE | 2022-08-17 11:36 | PCM.CONS.R ---
Assessment & Plan Assessment/Plan (1) TRESA (acute kidney injury): (2) Hyperkalemia: (3) Hyponatremia: PLAN: Plan Impression/Plan: The patient is a 57-year-old man with past history of type 2 diabetes mellitus, hypertension, atrial fibrillation, MILAGRO, morbid obesity, COPD, and hyperlipidemia. The patient was admitted to the hospital on 08/16/2022 with acute kidney injury, oliguria and hyperkalemia. Nephrology is following for these problems. Acute kidney injury. Baseline serum creatinine had been around 1.4 to 1.5 mg/dL. Prior to admission for heart failure exacerbation in July, serum creatinine had been around 0.9 to 1.1 mg/dL. I suspect serum creatinine 1.4 to 1.5 mg/dL is close to his actual baseline renal function as he was quite volume overloaded prior to her admission in July. Serum creatinine has increased from 1.45 mg/dL on 08/12/2022 up to 8.18 mg/dL today (in 5 days). We are in the process of working the patient up for the cause of acute kidney injury. There is no evidence of urinary tract obstruction on renal ultrasound from 08/17/2022. We are awaiting urinalysis and urine indices. I have also added complements, HARISH and ANCA since loss of renal function appears to be relatively rapid. The patient also had recent bacteremia which can predispose antibody mediated GN. The patient may need dialysis if renal function continues to decline rapidly. The most concerning factor today would be whether we can control hyperkalemia with medications only. The patient has been given SPS and temporizing measure for hyperkalemia. Recheck potassium level later today. If renal function fails to improve in the next 24 hours, I would recommend proceeding with hemodialysis tomorrow. Hyperkalemia. Hyperkalemia is likely due to TRESA on CKD along with concurrent use of CHAPITO inhibitor prior to admission. Agree with current management with SPS and temporizing measure for hyperkalemia. Recheck potassium level later today. If potassium fails to improve or if potassium actually increases this afternoon, I would recommend moving the patient to ICU for more emergent dialysis. Hyponatremia. The patient has serum sodium of 123 mmol/L today. I suspect hyponatremia is due to oliguric TRESA. There is no worrisome symptoms of hyponatremia such as headache, confusion, or persistent nausea. There is no need for 3% saline. We will continue to track sodium level. Hyperphosphatemia. Serum phosphorus level is 9.9 mg/dL. We will start patient on sevelamer with meals. Recheck calcium and phosphorus tomorrow. Nephrology plan discussed with Dr. Rebeka Alexandre. HPI Consult Data Date of Consult: 08/17/22 HPI Narrative Reason for Consultation: Acute kidney injury on chronic kidney disease HPI Narrative: The patient is a 57-year-old man with past history of type 2 diabetes mellitus, hypertension, atrial fibrillation, MILAGRO, morbid obesity, COPD, and hyperlipidemia. The patient was recently admitted to the hospital between 07/28/2022 until 08/06/2022. The patient was treated for acute exacerbation of heart failure with preserved ejection fraction as well as lower extremity cellulitis with coag negative staph bacteremia. The patient was discharged home on furosemide at 80 mg twice a day, metolazone, and lisinopril 5 mg once a day. The patient returns to the hospital on 08/16/2022 because of subjective decrease in urine output since 08/12/2022. Nephrology is asked to see the patient because of TRESA. The patient presented to the hospital on 08/16/2022 with serum creatinine of 7.10 mg/dL. On the day of previous discharge, serum creatinine was 1.48 mg/dL. Repeat serum creatinine on 08/12/2022 was still stable at 1.45 mg/dL. However, serum creatinine increased to 3.42 mg/dL on 08/14/2022. He complains of weakness, left hip and bilateral wrist pain. He has occasional dizziness. He denies anorexia or diarrhea. The patient has occasional nausea but no vomiting. He denies chronic use of NSAIDs although he was taking CHAPITO inhibitor and diuretics up until the day of presentation. Keyes catheter was placed on 08/16/2022. There is scant blood-tinged urine. He was seen by urology earlier today. Renal ultrasound from 08/17/2022 did not show any hydronephrosis with normal kidney sizes. [facility] Medical History Asthma BiPAP (biphasic positive airway pressure) dependence Cardiology follow-up encounter Cellulitis of right leg COPD (chronic obstructive pulmonary disease) COPD exacerbation Diabetes Essential (primary) hypertension Excessive bleeding Exogenous obesity Former smoker Hematuria High cholesterol History of abdominal paracentesis History of atrial fibrillation History of echocardiogram History of edema History of pain when walking History of stress test Hoarseness Hypercholesteremia Insulin dependent diabetes mellitus Kidney stones Leg cramps Longstanding persistent atrial fibrillation Lymphedema Mild intermittent asthma Morbid obesity due to excess calories Neuropathy Obstructive sleep apnea MILAGRO (obstructive sleep apnea) Right bundle branch block (RBBB) Sciatica Seasonal allergies Secondary pulmonary arterial hypertension Shortness of breath Shortness of breath on exertion Sleep apnea Super-super obese Swelling of lower limb Type 2 diabetes mellitus Venous hypertension, chronic Venous hypertension, chronic, with ulcer and inflammation Venous insufficiency Venous ulcer of right leg Vertigo Wears glasses Home Medications atorvastatin 10 mg tablet 10 mg PO QHS cholesterol 01/29/15 [History Last Taken 08/15/22] lisinopril 5 mg tablet 5 mg PO DAILY blood pressure 01/29/15 [History Last Taken 08/16/22] betaxolol 10 mg tablet 10 mg PO DAILY BP 03/03/17 [History Last Taken 08/16/22] metformin 1,000 mg tablet 1,000 mg PO BID diabetes 03/03/17 [History Last Taken 08/15/22] albuterol sulfate 90 mcg/actuation aerosol inhaler (ProAir HFA) 2 puff inhalation Q4H PRN shortness of breath or wheezing 12/19/18 [History Last Taken 06/03/19 19:30] fluticasone propionate 50 mcg/actuation nasal spray,suspension 2 spray NASAL DAILY PRN Allergies 03/14/19 [History Last Taken 08/15/22] gabapentin 300 mg capsule 300 mg PO TID nerve pain 06/04/19 [History Last Taken 08/16/22] glimepiride 4 mg tablet 4 mg PO DAILY diabetes 06/04/19 [History Last Taken 08/14/22] warfarin 1 mg tablet 10 mg PO DINNER 08/28/20 [History Last Taken 08/15/22] furosemide 80 mg tablet 80 mg PO BID 11/19/21 [History Last Taken 08/16/22] fluticasone fur. 200 mcg-umeclid 62.5 mcg-vilant 25 mcg inhalat.powder (Trelegy Ellipta) 1 inh inhalation DAILY #60 ea 01/07/22 [Rx Last Taken 08/16/22] montelukast 10 mg tablet 10 mg PO QHS allergies #30 tabs 01/26/22 [Rx Last Taken 08/15/22] diltiazem HCl 240 mg capsule,24 hr,extended release 240 mg PO DAILY heart #30 caps 04/29/22 [Rx Last Taken 08/16/22] allopurinol 300 mg tablet 300 mg PO QHS GOUT 07/28/22 [History Last Taken 08/15/22] insulin lispro 100 unit/mL subcutaneous pen (Humalog KwikPen (U-100) Insulin) 10 unit subcut TIDCM DM 07/28/22 [History Last Taken 3 Weeks Ago ~07/26/22] triamcinolone acetonide 0.1 % topical cream 1 applic topical BID RASH 07/28/22 [History Last Taken 07/27/22] cetirizine 10 mg tablet 10 mg PO QHS allergies 08/02/22 [History Last Taken 07/28/22] metolazone 2.5 mg tablet 2.5 mg PO DAILY #30 tabs 08/06/22 [Rx Last Taken Unknown] Allergy/AdvReac Type Severity Reaction Status Date / Time adhesive tape Allergy Rash Verified 08/16/22 09:47 codeine Allergy rash Verified 08/16/22 09:47 levofloxacin [From Levaquin] Allergy hives and Verified 08/16/22 09:47 swelling oxycodone Allergy hives Verified 08/16/22 09:47 Family History Mother Breast cancer Father Prostate cancer Surgical History History of cardiac catheterization History of meatotomy of ureter Social History Smoking Status: Former smoker how long ago did patient quit smokin years alcohol intake: never substance use type: does not use caffeine: No ROS ROS Narrative 01/19 ROS was done and is otherwise noncontributory to what is already documented on HPI. Physical Exam Narrative General: Ill-appearing. Somewhat distressed from joint pain. HEENT: Normocephalic, atraumatic. Mucous membrane moist. No erythema. PERRLA, EOMI. Hearing is intact. Neck: Thick but supple. Trachea is midline. Heart: Normal S1, S2. No rubs, murmurs, or gallops. Lungs: Clear to auscultation anteriorly. Decreased breath sound at bases bilaterally. Abdomen: Obese, normal bowel sound, soft, nontender, no guarding or rebound. Extremities: No clubbing or cyanosis. There is 1+ edema of the lower extremities bilaterally. Musculoskeletal: Erythema and warm right wrist with pain on palpation. Psychiatric: Anxious, normal affect. Neurologic: Cranial nerves II to XII are grossly intact. No focal neurologic deficit. Lab / Micro Data Result Diagrams: 08/17/22 04:56 08/17/22 09:55 Labs: Laboratory Results - last 24 hr 08/16/22 10:20: Anisocytosis 1+ 08/16/22 10:20: PT 22.7 H, INR 2.0 08/16/22 14:13: Troponin I High Sens 14 08/16/22 17:07: Sodium 125 L, Potassium 5.4 H, Chloride 86 L, Carbon Dioxide 24.0, Anion Gap 15, BUN 81 H, Creatinine 7.31 H, Estim Creat Clear Calc 12.38, Est GFR (MDRD) Af Amer 10 L, Est GFR (MDRD) Non-Af 8 L, BUN/Creatinine Ratio 11.1, Glucose 122 H, Calcium 7.8 L 08/17/22 04:56: WBC 9.3, RBC 4.00 L, Hgb 10.1 L, Hct 31.9 L, MCV 79.8 L, MCH 25.3 L, MCHC 31.7 L, RDW Std Deviation 57.0 H, RDW Coeff of Brina 20.1 H, Plt Count 219, MPV 10.2, Immature Gran % (Auto) 0.500, Neut % (Auto) 78.6 H, Lymph % (Auto) 6.6 L, Gray % (Auto) 10.8 H, Eos % (Auto) 2.9, Baso % (Auto) 0.6, Absolute Neuts (auto) 7.3, Absolute Lymphs (auto) 0.62 L, Nucleated RBC % 0, Anisocytosis 2+ 08/17/22 04:56: PT 25.8 H, INR 2.3 08/17/22 04:56: Sodium 126 L, Potassium 6.1 H*, Chloride 89 L, Carbon Dioxide 23.0, Anion Gap 14, BUN 87 H, Creatinine 7.66 H*, Estim Creat Clear Calc 11.82, Est GFR (MDRD) Af Amer 10 L, Est GFR (MDRD) Non-Af 8 L, BUN/Creatinine Ratio 11.4, Glucose 106, Calcium 7.2 L, Phosphorus 9.9 H*, Magnesium 2.4 08/17/22 04:56: ESR 30 H 08/17/22 05:38: POC Glucose 110 H 08/17/22 07:00: Sodium Cancelled, Potassium Cancelled, Chloride Cancelled, Carbon Dioxide Cancelled, Anion Gap Cancelled, BUN Cancelled, Creatinine Cancelled, Est GFR (MDRD) Af Amer Cancelled, Est GFR (MDRD) Non-Af Cancelled, BUN/Creatinine Ratio Cancelled, Glucose Cancelled, Calcium Cancelled, C-React Prot Ext Range 36.70 H 08/17/22 09:55: Sodium 123 L, Potassium 6.4 H*, Chloride 87 L, Carbon Dioxide 21.0, Anion Gap 15, BUN 88 H, Creatinine 8.18 H*, Estim Creat Clear Calc 11.07, Est GFR (MDRD) Af Amer 9 L, Est GFR (MDRD) Non-Af 7 L, BUN/Creatinine Ratio 10.8, Glucose 166 H, Calcium 7.3 L 08/17/22 09:55: Uric Acid 7.8 H Radiology Impression Chest X-Ray 08/16/22 11:01 IMPRESSION: Interval clearing of right pleural fluid and improvement of compressive atelectasis of the right lung base when compared to 08/03/2022. Electronically Signed: Wilbur Hare MD at 12:37 EDT , Renal Ultrasound 08/17/22 05:00 IMPRESSION: Normal ultrasound of the kidneys. Electronically Signed: Joaquin Bergeron MD at 8:52 EDT , Brain CT 08/17/22 06:00 IMPRESSION: Minimal chronic small vessel ischemic changes. No acute findings in the head/brain. Electronically Signed: Alonzo Rothman MD at 7:02 EDT , Cervical Spine CT 08/17/22 06:01 IMPRESSION: Straightening of the cervical lordosis due to patient positioning or muscle spasm. Mild cervical degenerative changes. No acute fracture or subluxation. Abnormal infiltrate within the dependent portion of the right lung, suspicious for atelectasis and/or pneumonia. This infiltrate is more severe than that seen on the prior chest radiograph of 08/16/2022. Electronically Signed: Alonzo Rothman MD at 7:14 EDT , Hand X-Ray 08/17/22 06:22 IMPRESSION: Negative right hand. Electronically Signed: Ankit Benitez MD at 7:20 EDT , Wrist X-Ray 08/17/22 06:22 IMPRESSION: Negative right wrist. Electronically Signed: Ankit Benitez MD at 7:21 EDT ,
--- NOTE | 2022-08-17 11:48 | CASEMGMT ---
Social Work Pt does not have LW/POA, as per admitting RN, pt does not have these documents and declined further information. MG Powell
[2022-08-17] MEDS: Ondansetron 4 MG/2 ML Vial IV (12:13)
--- NOTE | 2022-08-17 12:32 | NURSING ---
report called to icu transferred per bed with belongings to icu#4, family present
--- NOTE | 2022-08-17 13:59 | CASEMGMT ---
[facility] CM chart review: Patient was admitted 07/28-08/06/22 for CHF, Hypoxia, SOB. See [facility] CM assessment from 07/29/22. Patient was on IV Lasix gtt and had 20L removed. Patient was discharged home with home oxygen through [employer] at 2lpm at rest and 3lpm with ambulation. Patient returned 08/16/22 for increased jitters and decrease urination. Patient was noted to have clots in urine. Admitted for TRESA, Cr 8.18 and K+6.4. Nephrology and urology consulted. Patient may need HD per nephrology. Patient states he was taking his medications as directed and followed up with his PCP on 08/10/22. Patient denies needs at this time. Will monitor course of treatment for discharge needs. CM will continue to follow this patient and plan for a safe discharge.
[2022-08-17] MEDS: 0.9% Normal Saline 1,000 ML 999 ML IV (14:22)
[2022-08-17 14:32] LABS: Anion Gap 14 (5-15); BUN 88 mg/dL (7-18); BUN/Creat Ratio 10.6 RATIO (10-20); Calcium,Total 7.3 mg/dL (8.5-10.1); Chloride 85 mmol/L (98-107); Creatinine, Serum 8.28 mg/dL (0.70-1.30); EST Glomerular Filtration Rate 7 mL/min (>60); Est Glom Filt Rate - Afr Amer 9 mL/min (>60); Estimated Creatinine Clearance 10.93 ml/min; Glucose 172 mg/dL (74-106); Potassium 6.6 mmol/L (3.5-5.1); Sodium Level 122 mmol/L (136-145)
--- NOTE | 2022-08-17 15:07 | CASEMGMT ---
[facility] NOTE: Insurance review for hospitals In-network with [facility] Insurance if transfer is recommended is as follows: [facility], [place], [place], [facility], [facility], [facility], [facility]), [place], [place], and . Fiorella FUENTESN S[facility] CM
[2022-08-17] MEDS: Sodium Polystyrene Sulfonate 15 GM/60 ML UDC 30 GM PO (15:21)
--- NOTE | 2022-08-17 15:53 | PN.HOSP_ITS ---
Reason for Visit Reason for Visit: Feeling jittery/decreased urine output Subjective Subjective Mr. Morales is a 57-year-old male who presented to the emergency department on 08/16/2022 with decreased urine output and feeling jittery.. The patient was recently admitted from 07/28/2022 through 08/06/2022 for acute decompensated right-sided heart failure. The patient has a previous echocardiogram that which is pulmonary artery hypertension was diagnosed having a RSVP of 49 mmHg. He had significant volume overload and was diuresed with IV Lasix until he had a slight creatinine bump and was transition back to his home oral Lasix 80 mg p.o. twice daily and low-dose metolazone at 2.5 mg daily. The patient was also strictly restricting his oral intake as instructed. Serum creatinine at the day of discharge was 1.48. A repeat BMP was obtained on 08/12/2022 and his serum creatinine was found to be stable at 1.45. A repeat serum creatinine was done 2 days later by his primary care physician at which time his serum creatinine had jumped to 3.42. He was instructed to follow-up in the emergency department when his urine output had decreased significantly at home. Serum creatinine on admission was 7.10. Since that time his serum creatinine has been trending up. I discussed the case with nephrology and the rate of rise is suggestive of something other than dehydration. His blood pressure was somewhat low but seems to be fluid responsive. Unfortunately his serum potassium continues to rise despite Kayexalate treatment and temporizing treatment with bicarb, insulin, and albuterol. He remains fairly severely oliguric. A Keyes was placed and was found to have gross hematuria so urology is following and he is having three-way irrigation ongoing until his hematuria clears. I extensively discussed the case both with this patient and the mother. They are agreeable to dialysis. Currently dialysis catheter placement is pending. Patient has had some myoclonus as well as altered taste, sleepiness, and forgetfulness probably related to his renal dysfunction. I discussed this with the mother extensively and she voiced understanding. They are considering transfer to tertiary center and would like [facility] if they decide on transfer to be performed. At this time they are still indecisive. Objective Data Objective Data Vital Signs: Vital Signs Temp Pulse Resp BP Pulse Ox O2 Del Method O2 Flow Rate 98.3 F 46 L 16 104/44 L 97 Nasal Cannula 2 08/17/22 15:00 08/17/22 15:00 08/17/22 15:00 08/17/22 15:00 08/17/22 15:00 08/17/22 15:00 08/17/22 15:00 Oxygen Flow Rate (L/min) 2 Oxygen Delivery Method Nasal Cannula Weight: 181.2 kg Body Mass Index (BMI) 54.1 Intake & Output: Intake and Output for Last 24 Hours 08/15/22 08/16/22 08/17/22 23:59 23:59 23:59 Intake Total 2980.0 / 2980.0 3910.0 / 3910.0 Output Total 0 / 100 600 / 600 Balance 2980.0 / 2880.0 3310.0 / 3310.0 Lab / Micro Data Attestation: I reviewed the patient's lab results. Result Diagrams: 08/17/22 04:56 08/17/22 13:45 Labs: Laboratory Results - last 24 hr 08/16/22 17:07: Sodium 125 L, Potassium 5.4 H, Chloride 86 L, Carbon Dioxide 24.0, Anion Gap 15, BUN 81 H, Creatinine 7.31 H, Estim Creat Clear Calc 12.38, Est GFR (MDRD) Af Amer 10 L, Est GFR (MDRD) Non-Af 8 L, BUN/Creatinine Ratio 11.1, Glucose 122 H, Calcium 7.8 L 08/17/22 04:56: WBC 9.3, RBC 4.00 L, Hgb 10.1 L, Hct 31.9 L, MCV 79.8 L, MCH 25.3 L, MCHC 31.7 L, RDW Std Deviation 57.0 H, RDW Coeff of Brina 20.1 H, Plt Count 219, MPV 10.2, Immature Gran % (Auto) 0.500, Neut % (Auto) 78.6 H, Lymph % (Auto) 6.6 L, [place] % (Auto) 10.8 H, Eos % (Auto) 2.9, Baso % (Auto) 0.6, Absolute Neuts (auto) 7.3, Absolute Lymphs (auto) 0.62 L, Nucleated RBC % 0, Anisocytosis 2+ 08/17/22 04:56: PT 25.8 H, INR 2.3 08/17/22 04:56: Sodium 126 L, Potassium 6.1 H*, Chloride 89 L, Carbon Dioxide 23.0, Anion Gap 14, BUN 87 H, Creatinine 7.66 H*, Estim Creat Clear Calc 11.82, Est GFR (MDRD) Af Amer 10 L, Est GFR (MDRD) Non-Af 8 L, BUN/Creatinine Ratio 11.4, Glucose 106, Calcium 7.2 L, Phosphorus 9.9 H*, Magnesium 2.4 08/17/22 04:56: ESR 30 H 08/17/22 05:38: POC Glucose 110 H 08/17/22 07:00: Sodium Cancelled, Potassium Cancelled, Chloride Cancelled, Carbon Dioxide Cancelled, Anion Gap Cancelled, BUN Cancelled, Creatinine Cancelled, Est GFR (MDRD) Af Amer Cancelled, Est GFR (MDRD) Non-Af Cancelled, BUN/Creatinine Ratio Cancelled, Glucose Cancelled, Calcium Cancelled, C-React Prot Ext Range 36.70 H 08/17/22 09:55: Sodium 123 L, Potassium 6.4 H*, Chloride 87 L, Carbon Dioxide 21.0, Anion Gap 15, BUN 88 H, Creatinine 8.18 H*, Estim Creat Clear Calc 11.07, Est GFR (MDRD) Af Amer 9 L, Est GFR (MDRD) Non-Af 7 L, BUN/Creatinine Ratio 10.8, Glucose 166 H, Calcium 7.3 L 08/17/22 09:55: Uric Acid 7.8 H 08/17/22 13:45: Sodium 122 L, Potassium 6.6 H*, Chloride 85 L, Carbon Dioxide 23.0, Anion Gap 14, BUN 88 H, Creatinine 8.28 H*, Estim Creat Clear Calc 10.93, Est GFR (MDRD) Af Amer 9 L, Est GFR (MDRD) Non-Af 7 L, BUN/Creatinine Ratio 10.6, Glucose 172 H, Calcium 7.3 L 08/17/22 15:15: Blood Type A POSITIVE Radiography Diagnostic Testing: Radiology Impression Renal Ultrasound 08/17/22 05:00 IMPRESSION: Normal ultrasound of the kidneys. Electronically Signed: Joaquin Bergeron MD at 8:52 EDT , Brain CT 08/17/22 06:00 IMPRESSION: Minimal chronic small vessel ischemic changes. No acute findings in the head/brain. Electronically Signed: Alonzo Rothman MD at 7:02 EDT , Cervical Spine CT 08/17/22 06:01 IMPRESSION: Straightening of the cervical lordosis due to patient positioning or muscle spasm. Mild cervical degenerative changes. No acute fracture or subluxation. Abnormal infiltrate within the dependent portion of the right lung, suspicious for atelectasis and/or pneumonia. This infiltrate is more severe than that seen on the prior chest radiograph of 08/16/2022. Electronically Signed: Alonzo Rothman MD at 7:14 EDT , Hand X-Ray 08/17/22 06:22 IMPRESSION: Negative right hand. Electronically Signed: Ankit Benitez MD at 7:20 EDT , Wrist X-Ray 08/17/22 06:22 IMPRESSION: Negative right wrist. Electronically Signed: Ankit Benitez MD at 7:21 EDT , Rhythm Strip Rhythm Strip: A-fib Rate: 50 Ectopy: None Physical Exam Const alert and well nourished; Negative for no apparent distress, average body habitus or healthy appearing Constitutional Narrative: Middle-aged, morbidly obese, white male, sitting up in bed, somewhat confused, family at bedside, patient appears nontoxic but is ill-appearing, he is in no acute distress at this time HEENT head/scalp atraumatic, moist oral mucous membranes and oropharynx normal HEENT Narrative: Mucous membranes are somewhat dry, Mallampati 3-4, no thrush Head and Scalp: normocephalic Eyes PERRL, EOMs intact bilaterally and conjunctivae normal Eyes Narrative: No scleral icterus Neck no lymphadenopathy, supple and no JVD Resp normal respiratory effort, no retractions, no use of accessory muscles and clear to auscultation bilaterally Resp Narrative: Diffusely diminished however auscultation is inhibited by body habitus Auscultation: Negative for rales, rhonchi or wheezes Cardio S1 normal heart sound, S2 normal heart sound, no murmurs, no rub, no gallops and no clicks Cardio Narrative: Bradycardia with irregularly irregular rhythm GI normal to inspection, nondistended, normoactive bowel sounds and soft to palpation GI Narrative: No significant anasarca noted at this time Extremity Extremity Narrative: Trace bilateral lower extremity edema, chronic changes consistent with chronic venous stasis bilateral lower extremities, pedal pulses are 2+, right wrist is very tender to light palpation and slightly erythematous consistent with gout- patient has history Skin no rashes or lesions noted, no jaundice, no petechiae and no mottling Skin Narrative: Mild tenting with skin turgor noted, erythema to right wrist as noted above Neuro CN's II-XII intact bilaterally, moves all extremities and no focal motor deficits Neuro Narrative: Mild confusion, intermittent myoclonus noted Speech: speech normal Psych Psych Narrative: Affect is somewhat flat and patient appears frustrated but expected for current medical situation Assessment & Plan Assessment/Plan (1) Hyponatremia: (2) Hyperkalemia: (3) TRESA (acute kidney injury): (4) Gross hematuria: (5) Metabolic acidosis: (6) Anemia: (7) Gout: (8) Hyperphosphatemia: (9) Toxic metabolic encephalopathy: (10) Bradycardia: PLAN: Plan TRESA -Baseline renal function appears to be between 0.9 and 1.1 -Current serum creatinine on most recent lab is 8.28 -Lab at discharge showed a serum creatinine of 1.48 which had improved from previous and trended down to 1.45 on 08/12/2022.--> Unfortunately he had a dramatic and precipitous rise in his serum creatinine from 08/12/2022 to 08/14/2022 at which time his serum creatinine was 3.42 and then lorenzo to 7.10 and another 48 hours. -Etiology is unclear--> initially felt to be related to diuresis however with the rate of rise being that dramatic and no obstruction being found other etiologies are being pursued at this time including immune mediated disease -With potassium rising and serum creatinine rate of rise emergent dialysis is required -Dialysis catheter being placed after 1 unit FFP given as INR was 2.3 from chr onic Coumadin use -Dialysis after dialysis catheter placement and confirmation -Urine studies are pending if able to obtain -Continue bicarb drip -Continue serial lab BMP -CK is pending -Retroperitoneal ultrasound is unremarkable for any identifiable cause -Patient will likely need renal biopsy once clinically stable and INR has been reversed -Hold home diuretics and CHAPITO inhibitor -Nephrology is consulted-discussed case with Dr. Champagne and appreciate input Hyperkalemia/hyperphosphatemia/hyponatremia -Anticipate all mediated from renal dysfunction -Dialysis is pending -Continue serial lab -Repeat Phos in a.m. Metabolic acidosis -Secondary to renal dysfunction -Baseline serum bicarb is in the 20s to 30s -Current serum bicarb is 21 -Maintain bicarb drip -Urgent dialysis pending Bradycardia -Suspect related to hyperkalemia and renal dysfunction -Hold home beta-kostas -Continue to hold home diltiazem -Monitor on telemetry Metabolic encephalopathy -Likely related to the above -Should improve with dialysis -Continue to monitor Myoclonus -Likely related to the above -Should improve with dialysis -Continue to monitor Gout-right wrist -Wrist is warm, erythematous, and severely tender -Patient has had history of gout -hold home allopurinol with renal dysfunction -Start prednisone 40 mg daily x5 days -Stat uric acid was obtained and found to be elevated -Continue to monitor clinically Gross hematuria -Etiology is unclear -Keyes in place -Continue three-way irrigation per urology -Appreciate urology input Anemia -Patient's had significant volume so drop in hemoglobin may be related to this however had had gross hematuria -Repeat CBC in a.m. -Patient is anticoagulated and Coumadin is on hold for possible renal biopsy in the near future Seasonal allergies -Continue home therapy Chronic HFpEF -Systolic function is normal and echocardiogram however he has had right-sided ventricular systolic pressures at 50 mmHg showing evidence of pulmonary hypertension which likely is can attributing to his right-sided heart failure -Diuretics are on hold secondary to the above -Currently compensated HTN/HPL -Hold home betaxolol -Hold home diltiazem -Continue home atorvastatin but if CK is elevated will discontinue -Hold home lisinopril Chronic atrial fibrillation -Currently bradycardic--> suspect related to elevated potassium level -Continue to monitor on telemetry -Hold home calcium channel kostas/beta-kostas -Hold home Coumadin with above ongoing issues MILAGRO -Continue nocturnal sleep apnea treatment with CPAP Hepatic steatosis -Recommend outpatient follow-up Morbid obesity -Recommend weight loss -Complicates treatment, prognosis, outcomes -BMI is 57 DVT prophylaxis -INR was 2.3 today -We will start heparin 3 times daily once INR is less than 2 for DVT prophylaxis as I do anticipate Coumadin needing to be held for some time in preparation for probable renal biopsy CODE STATUS Full code As noted in HPI I have had extensive conversation twice today with family once prior to transfer to the ICU and once after once urgent dialysis was deemed to be required. All questions have a been answered. Family is trying to decide whether or not they would like him transferred to [facility]. I asked him to let me know and we could facilitate transfer if they would like to do that. They did indicate there is a family history of Meena's granulomatosis and other autoimmune disorders. Work-up for immune mediated processes is already initiate d. Critical care time greater than 35 minutes excluding all procedures Charges/Coding Procedures Hospitalists Procedures: 88176 Critial Care 1st Hr
[2022-08-17 16:48] LABS: CPK Total, Creatine Kinase 33 U/L (39-308)
[2022-08-17 17:05] LABS: Bedside Glucose 172 mg/dL (74-106)
[2022-08-17] MEDS: Heparin 10,000 UNITS/10 ML Vial 10000 UNITS IV (17:13)
--- NOTE | 2022-08-17 17:15 | NURSING ---
Mary Grace Jeff at bedside to place temporary dialysis catheter
--- NOTE | 2022-08-17 17:20 | RAD_ITS ---
STUDY: XR Chest 1 View 08/17/2022 5:16 PM REASON FOR EXAM: Male, 57 years old. CHEST PAIN DIALYSIS LINE PLACEMENT COMPARISON: 08/16/2022 TECHNIQUE: XR Chest 1 View FINDINGS: There is a right pleural effusion. Right infiltrate. There is a right IJ line in place. The tip is in the superior vena cava. There is no pneumothorax. Enlarged heart size. Normal mediastinum. Normal sky. Prominent appearing increased interstitial lung markings. Normal visualized pulmonary arteries. There is atherosclerotic calcification of the aortic arch with tortuosity. There are diffuse degenerative changes of the visualized thoracic spine. There is degenerative osteoarthritis of the bilateral shoulders. There is no demonstrated abnormality of the visualized soft tissue structures of the upper abdomen. RAD/CXR for Line Placement IMPRESSION: Pulmonary findings appear worse. Electronically Signed: Jesus Goodrich MD at 17:40 EDT ,
--- NOTE | 2022-08-17 17:22 | PCM.OP.BLANK ---
Operative Report Date of Procedure: 08/17/22 Temporary hemodialysis catheter line placement procedure note Indication: Hemodialysis Procedure: A time-out was completed to verify correct patient, indication, medication allergies, procedure, coagulation studies, informed consent signed, and equipment needed. The patient was placed in the supine position for a central line placement to the rt IJ vein. The patients rt neck was prepped using chlorhexidine and a full body sterile drape was applied. 1% lidocaine was used to anesthetize the surrounding skin. A 12fr 16 cm blue temporary hemodialysis catheter introduced into the internal jugular vein using the modified Seldinger technique with the assistance of ultrasound. The site was dilated twice in a stepwise fashion. The catheter was threaded smoothly over the guidewire, the guidewire was removed easily, nonpulsatile blood returned. All ports were aspirated of air and flushed with sterile saline then blocked with you 1000 heparin 1.3 cc to each port. The catheter was sutured in place and covered with an occlusive dressing impregnated with chlorhexidine. Post-procedure: The patient tolerated the procedure well. Vital signs remained stable. EBL 5cc. No complications. Chest X Ray confirmed tip placement and the absence of pneumothorax. Procedures Hospitalists Procedures: 31060 Insert Non-tunnel CV Cath
[2022-08-17] MEDS: Heparin 10,000 UNITS/10 ML Vial IV (17:30)
[2022-08-17 19:46] LABS: Bedside Glucose 191 mg/dL (74-106)
[2022-08-17] MEDS: Atorvastatin Calcium 10 MG Tablet PO (20:21)
[2022-08-17] MEDS: Loratadine 10 MG Tablet 5 MG PO (20:21)
[2022-08-17] MEDS: Montelukast 10 MG Tablet PO (20:21)
[2022-08-17] MEDS: Acetaminophen 325 MG Tablet 650 MG PO (20:23)
[2022-08-17] MEDS: 0.9% Saline Lock 10 ML Syringe IV (21:17)
[2022-08-17 21:19] LABS: Hematocrit 33.1 % (40-54); Hemoglobin 10.2 g/dL (13.0-16.5); Mean Corp Hgb Conc 30.8 g/dL (32-36); Mean Corpuscular Hgb 24.8 pg (27.0-32.0); Mean Corpuscular Volume 80.3 fL (80-94); Mean Platelet Vol. 10.2 fl (6.2-12.0); POSITIVE MORPHOLOGY YES; Platelet Count 211 K/mm3 (150-450); RBC Distribution Width CV 20.3 % (11.6-14.6); RBC Distribution Width SD 57.8 fl (35.1-43.9); Red Blood Count 4.12 M/mm3 (4.6-6.2)
[2022-08-17 21:25] LABS: Scan Indicated on CBC? Y/N YES- FLAGS NOTED
[2022-08-17 21:32] LABS: Partial Thromboplast Time 39.2 Seconds (24.1-36.2)
[2022-08-17 21:42] LABS: Differential Comment SCANNED
[2022-08-17 21:50] LABS: Bedside Glucose 163 mg/dL (74-106)
[2022-08-17 22:16] LABS: Albumin, Serum 2.8 g/dL (3.2-5.0); BUN 81 mg/dL (7-18); BUN/Creat Ratio 11.6 RATIO (10-20); Calcium,Total 7.2 mg/dL (8.5-10.1); Chloride 88 mmol/L (98-107); Creatinine, Serum 6.97 mg/dL (0.70-1.30); EST Glomerular Filtration Rate 9 mL/min (>60); Est Glom Filt Rate - Afr Amer 11 mL/min (>60); Estimated Creatinine Clearance 12.99 ml/min; Glucose 170 mg/dL (74-106); Magnesium 2.4 mg/dL (1.6-2.6); Phosphorus 8.6 mg/dL (2.5-4.9); Potassium 5.3 mmol/L (3.5-5.1); Sodium Level 125 mmol/L (136-145)
[2022-08-17 23:00] LABS: Allen Test Positive; Base Excess -2 mmol/L (-2 to +2); Blood Gas Specimen Type ART; O2 Delivery Device CPAP; PO2 78 mmHG (75-100); SITE R Radial; SO2 95 % (95-99); Total Carbon Dioxide 25 mmol/L; pCO2 43.2 mmHg (35-45); pH 7.35 (7.35-7.45)
[2022-08-17] MEDS: PUREFLOW B SOLUTION 2K 5,000 ML BAG 9 BAG PF (23:08)
[2022-08-18] VITALS (33 sets, daily range): BP systolic 112–161; BP diastolic 46–97; PULSE 49–90; RESP 12–23; TEMP 36.4–37.1; O2SAT 94–100; BMI 56.7
[2022-08-18] MEDS: 0.9% Saline Lock 10 ML Syringe IV ×2 (03:09→06:45)
[2022-08-18] MEDS: PUREFLOW B SOLUTION 2K 5,000 ML BAG 9 BAG PF (03:09)
[2022-08-18 03:11] LABS: Absolute Lymphocyte Count 0.39 X10^3/uL (0.83-4.51); Absolute Neutrophil Count 9.1 X10^3/uL (2.0-7.7); Basophil# 0.03 X10^3/uL; Basophil% 0.3 % (0-1); Differential Indicated SCAN CRITERIA MET; Eosinophil# 0.09 X10^3/uL; Eosinophils% 0.8 % (0-5); Hemoglobin 11.4 g/dL (13.0-16.5); Lymphocyte # 0.39 X10^3/ul (0.83-4.51); Lymphocyte % 3.6 % (19-41); Mean Corp Hgb Conc 30.8 g/dL (32-36); Mean Corpuscular Hgb 24.9 pg (27.0-32.0); Mean Corpuscular Volume 80.8 fL (80-94); Mean Platelet Vol. 10.4 fl (6.2-12.0); Monocyte# 1.29 X10^3/uL; Monocyte% 11.7 % (0-10); NRBC Flagged by Analyzer 0 % (0-5); Neutrophil % 82.9 % (47-70); POSITIVE DIFFERENTIAL YES; POSITIVE MORPHOLOGY YES; Platelet Count 243 K/mm3 (150-450); RBC Distribution Width CV 20.3 % (11.6-14.6); RBC Distribution Width SD 57.9 fl (35.1-43.9); Red Blood Count 4.58 M/mm3 (4.6-6.2)
[2022-08-18 03:21] LABS: Partial Thromboplast Time 41.1 Seconds (24.1-36.2)
[2022-08-18 03:31] LABS: ALB/GLOB Ratio 0.8 RATIO (0.9-2.4); AST(SGOT) 33 U/L (15-37); Alanine Aminotransfer ALT/SGPT 25 U/L (16-61); Albumin, Serum 2.9 g/dL (3.2-5.0); Alkaline Phosphatase 66 U/L (45-117); Anion Gap 10 (5-15); BUN 62 mg/dL (7-18); BUN/Creat Ratio 12.7 RATIO (10-20); Calcium,Total 7.6 mg/dL (8.5-10.1); Chloride 93 mmol/L (98-107); Creatinine, Serum 4.88 mg/dL (0.70-1.30); EST Glomerular Filtration Rate 13 mL/min (>60); Est Glom Filt Rate - Afr Amer 16 mL/min (>60); Estimated Creatinine Clearance 18.55 ml/min; Globulin 3.8 g/dL (2.2-4.2); Glucose 186 mg/dL (74-106); Magnesium 2.3 mg/dL (1.6-2.6); Potassium 4.7 mmol/L (3.5-5.1); Protein, Total 6.7 g/dL (6.4-8.2); Sodium Level 129 mmol/L (136-145)
[2022-08-18 03:51] LABS: Anisocytosis 1+; Differential Comment SCANNED; Microcytosis 1+
[2022-08-18] MEDS: PUREFLOW B SOLUTION 4K 5,000 ML BAG 9 BAG PF ×4 (04:44→14:04)
[2022-08-18 05:33] LABS: Phosphorus 7.1 mg/dL (2.5-4.9)
[2022-08-18] MEDS: Heparin 10,000 UNITS/10 ML Vial IV ×2 (08:18→16:22)
[2022-08-18] MEDS: predniSONE 20 MG Tablet 40 MG PO (08:20)
[2022-08-18] MEDS: SEVELAMER CARBONATE 800 MG TABLET PO ×3 (08:46→17:07)
[2022-08-18] MEDS: Insulin Lispro 100 UNIT/ML INSULN.PEN SC ×4 (08:50→20:44)
--- NOTE | 2022-08-18 10:07 | PCM.PN.REN ---
Documented by User: DONYA Awad 08/18/22 10:28 Subjective Subjective Following for TRESA Sitting up in bed eating breakfast. Brother and mother at bedside. No overnight events. Patient reports feeling better today and his appetite has improved. Objective Data Objective Data Vital Signs: Vital Signs Temp Pulse Resp BP Pulse Ox O2 Del Method O2 Flow Rate 97.6 F L 72 13 113/79 97 CPAP 3 08/18/22 03:00 08/18/22 07:00 08/18/22 07:00 08/18/22 07:00 08/18/22 07:00 08/18/22 07:00 08/18/22 07:00 Oxygen Flow Rate (L/min) 3 Oxygen Delivery Method CPAP Weight: 189.9 kg Body Mass Index (BMI) 56.7 Intake & Output: Intake and Output for Last 24 Hours 08/16/22 08/17/22 08/18/22 23:59 23:59 23:59 Intake Total 2980.0 / 2980.0 5220.20 / 5229.60 742.50 / 742.50 Output Total 0 / 100 1075 / 1075 Balance 2980.0 / 2880.0 4145.20 / 4154.60 742.50 / 742.50 Lab / Micro Data Result Diagrams: 08/18/22 10:16 08/18/22 10:16 Labs: Laboratory Results - last 24 hr 08/17/22 09:55: Sodium 123 L, Potassium 6.4 H*, Chloride 87 L, Carbon Dioxide 21.0, Anion Gap 15, BUN 88 H, Creatinine 8.18 H*, Estim Creat Clear Calc 11.07, Est GFR (MDRD) Af Amer 9 L, Est GFR (MDRD) Non-Af 7 L, BUN/Creatinine Ratio 10.8, Glucose 166 H, Calcium 7.3 L 08/17/22 09:55: Uric Acid 7.8 H 08/17/22 12:00: POC Glucose 172 H 08/17/22 13:45: Sodium 122 L, Potassium 6.6 H*, Chloride 85 L, Carbon Dioxide 23.0, Anion Gap 14, BUN 88 H, Creatinine 8.28 H*, Estim Creat Clear Calc 10.93, Est GFR (MDRD) Af Amer 9 L, Est GFR (MDRD) Non-Af 7 L, BUN/Creatinine Ratio 10.6, Glucose 172 H, Calcium 7.3 L 08/17/22 13:45: Total Creatine Kinase 33 L 08/17/22 15:15: Blood Type A POSITIVE 08/17/22 16:39: POC Glucose 191 H 08/17/22 21:05: WBC 11.0, RBC 4.12 L, Hgb 10.2 L, Hct 33.1 L, MCV 80.3, MCH 24.8 L, MCHC 30.8 L, RDW Std Deviation 57.8 H, RDW Coeff of Brina 20.3 H, Plt Count 211, MPV 10.2, Differential Comment SCANNED 08/17/22 21:05: APTT 39.2 H 08/17/22 21:05: Sodium 125 L, Potassium 5.3 H, Chloride 88 L, Carbon Dioxide 25.0, BUN 81 H, Creatinine 6.97 H, Estim Creat Clear Calc 12.99, Est GFR (MDRD) Af Amer 11 L, Est GFR (MDRD) Non-Af 9 L, BUN/Creatinine Ratio 11.6, Glucose 170 H, Calcium 7.2 L, Phosphorus 8.6 H, Magnesium 2.4, Albumin 2.8 L 08/17/22 21:30: POC Glucose 163 H 08/18/22 03:00: Sodium 129 L, Potassium 4.7, Chloride 93 L, Carbon Dioxide 26.0, Anion Gap 10, BUN 62 H, Creatinine 4.88 H, Estim Creat Clear Calc 18.55, Est GFR (MDRD) Af Amer 16 L, Est GFR (MDRD) Non-Af 13 L, BUN/Creatinine Ratio 12.7, Glucose 186 H, Calcium 7.6 L, Phosphorus 7.1 H, Magnesium 2.3, Total Bilirubin 0.50, AST 33, ALT 25, Alkaline Phosphatase 66, Total Protein 6.7, Albumin 2.9 L, Globulin 3.8, Albumin/Globulin Ratio 0.8 L 08/18/22 03:00: WBC 11.0, RBC 4.58 L, Hgb 11.4 L, Hct 37.0 L, MCV 80.8, MCH 24.9 L, MCHC 30.8 L, RDW Std Deviation 57.9 H, RDW Coeff of Brina 20.3 H, Plt Count 243, MPV 10.4, Immature Gran % (Auto) 0.700, Neut % (Auto) 82.9 H, Lymph % (Auto) 3.6 L, [place] % (Auto) 11.7 H, Eos % (Auto) 0.8, Baso % (Auto) 0.3, Absolute Neuts (auto) 9.1 H, Absolute Lymphs (auto) 0.39 L, Nucleated RBC % 0, Differential Comment SCANNED, Anisocytosis 1+, Microcytosis 1+ 08/18/22 03:00: Sodium Cancelled, Potassium Cancelled, Chloride Cancelled, Carbon Dioxide Cancelled, BUN Cancelled, Creatinine Cancelled, Estim Creat Clear Calc Cancelled, Est GFR (MDRD) Af Amer Cancelled, Est GFR (MDRD) Non-Af Cancelled, BUN/Creatinine Ratio Cancelled, Glucose Cancelled, Calcium Cancelled, Phosphorus Cancelled, Magnesium Cancelled, Albumin Cancelled 08/18/22 03:00: APTT 41.1 H ABG Data ABG results: ABG 08/17/22 22:54 Specimen Type ART Sample Site R Radial pH 7.35 Bicarbonate Actual 24.0 Total CO2 25 Base Excess -2 O2 Saturation 95 ABG pCO2 43.2 ABG pO2 78 Perez Test Positive O2 Delivery Device CPAP Liter Flow 2.0 Radiography Diagnostic Testing: Radiology Impression Chest X-Ray 08/17/22 17:20 IMPRESSION: Pulmonary findings appear worse. Electronically Signed: Jesus Goodrich MD at 17:40 EDT Reading Location ID and State: [facility] / [place] , Service support , Rhythm Strip Rhythm Strip: A-fib Rate: 50 Ectopy: None Physical Exam Narrative General: A&Ox3, no apparent distress HEENT: Normocephalic, atraumatic. Mucous membrane moist Heart: Normal S1, S2. No rubs, murmurs, or gallops. Lungs: Clear to auscultation anteriorly. Decreased breath sound at bases bilaterally. Abdomen: Obese, normal bowel sounds, soft, nontender Extremities: 1+ edema of the lower extremities bilaterally. right IJ non-tunneled HD catheter dressing C/D/I indwelling solano with straw colored urine in bag. CBI turned off. Assessment & Plan Assessment/Plan (1) TRESA (acute kidney injury): (2) Hyperkalemia: (3) Hyponatremia: PLAN: Plan Impression/Plan: The patient is a 57-year-old man with past history of type 2 diabetes mellitus, hypertension, atrial fibrillation, MILAGRO, morbid obesity, COPD, and hyperlipidemia. The patient was admitted to the hospital on 08/16/2022 with acute kidney injury, oliguria and hyperkalemia. Acute kidney injury. Baseline serum creatinine had been around 1.4 to 1.5 mg/dL late July 2022 when admitted for heart failure. Prior to admission for heart failure exacerbation in July, serum creatinine had been around 0.9 to 1.1 mg/dL. Suspect serum creatinine 1.4 to 1.5 mg/dL is close to his actual baseline renal function as he was quite volume overloaded prior to admission in July. Serum creatinine increased from 1.45 mg/dL on 08/12/2022 up to 8.28 mg/dL 08/17. We are in the process of working the patient up for the cause of acute kidney injury. Renal serologies/urines ordered and also to note the patient had recent bacteremia which can predispose antibody mediated GN. Patient may need kidney biopsy (patient's weight 190kg). UA in July 2022 15 protein, no blood. CPK 33. There is no evidence of urinary tract obstruction on renal ultrasound from 08/17/2022. UOP is starting to pick out hand. We will continue to monitor for renal recovery. Discussed plan with patient and his family members who are at bedside, questions answered. patient has history of gout, allopurinol on hold and on prednisone for 5days. Uric acid 7.8 Hyperkalemia. Hyperkalemia is likely due to TRESA on CKD along with concurrent use of CHAPITO inhibitor prior to admission. Patient received SPS and temporizing measures for hyperkalemia but despite those efforts potassium worsened and peaked to 6.6 yesterday therefore patient was transferred to ICU, temporary non-tunneled HD catheter was placed on 08/17 and initially we were going to start intermittent hemodialysis however patient became hypotensive therefore CRRT was started 08/17. Bp improved and now off levophed. On CRRT with no UF at this time. Hyponatremia. Hyponatremia is due to oliguric TRESA. Sodium 129 today, improved. Hyperphosphatemia. Phosphorus was 9 9. We started sevelamer 1 tablet with meals. On renal diet. Continue to monitor phosphorus trends. Nephrology plan discussed with Dr. Alexandre. Documented by User: Dr. Becca Marino MD 08/18/22 15:38 Objective Data Lab / Micro Data Result Diagrams: 08/18/22 10:16 08/18/22 10:16 Assessment & Plan Assessment/Plan (1) TRESA (acute kidney injury): (2) Hyperkalemia: (3) Hyponatremia: PLAN: Plan Impression/Plan: The patient is a 57-year-old man with past history of type 2 diabetes mellitus, hypertension, atrial fibrillation, MILAGRO, morbid obesity, COPD, and hyperlipidemia. The patient was admitted to the hospital on 08/16/2022 with acute kidney injury, oliguria and hyperkalemia. Acute kidney injury. Baseline serum creatinine had been around 1.4 to 1.5 mg/dL late July 2022 when admitted for heart failure. Prior to admission for heart failure exacerbation in July, serum creatinine had been around 0.9 to 1.1 mg/dL. Suspect serum creatinine 1.4 to 1.5 mg/dL is close to his actual baseline renal function as he was quite volume overloaded prior to admission in July. Serum creatinine increased from 1.45 mg/dL on 08/12/2022 up to 8.28 mg/dL 08/17. We are in the process of working the patient up for the cause of acute kidney injury. Renal serologies/urines ordered and also to note the patient had recent bacteremia which can predispose antibody mediated GN. Patient may need kidney biopsy (patient's weight 190kg). UA in July 2022 15 protein, no blood. CPK 33. There is no evidence of urinary tract obstruction on renal ultrasound from 08/17/2022. UOP is starting to pick out hand. We will continue to monitor for renal recovery. Discussed plan with patient and his family members who are at bedside, questions answered. patient has history of gout, allopurinol on hold and on prednisone for 5days. Uric acid 7.8 Hyperkalemia. Hyperkalemia is likely due to TRESA on CKD along with concurrent use of CHAPITO inhibitor prior to admission. Patient received SPS and temporizing measures for hyperkalemia but despite those efforts potassium worsened and peaked to 6.6 yesterday therefore patient was transferred to ICU, temporary non-tunneled HD catheter was placed on 08/17 and initially we were going to start intermittent hemodialysis however patient became hypotensive therefore CRRT was started 08/17. Bp improved and now off levophed. On CRRT with no UF at this time. Hyponatremia. Hyponatremia is due to oliguric TRESA. Sodium 129 today, improved. Hyperphosphatemia. Phosphorus was 9 9. We started sevelamer 1 tablet with meals. On renal diet. Continue to monitor phosphorus trends. Nephrology plan discussed with Dr. Alexandre. Nephrology attending addendum: The patient is seen and examined. SURFACE WATER TECHNICIAN's note reflects my independent assessment and evaluation. The patient seen during CRRT. He tolerated CVVHD well overnight. We were able to treat hyperkalemia and hyperphosphatemia effectively. Since the patient is more stable hemodynamically, I will stop CVVHD today. We will transition him to IHD tomorrow. So far, we are still waiting on serologies which I had ordered yesterday. HARISH, ANCA, C3 and C4 are still pending. The patient may ultimately need a kidney biopsy for more definitive diagnosis since renal function deteriorated quickly Parth Champagne MD
[2022-08-18 10:28] LABS: Hematocrit 34.7 % (40-54); Hemoglobin 10.9 g/dL (13.0-16.5); Mean Corp Hgb Conc 31.4 g/dL (32-36); Mean Corpuscular Hgb 25.3 pg (27.0-32.0); Mean Corpuscular Volume 80.5 fL (80-94); Mean Platelet Vol. 10.2 fl (6.2-12.0); Platelet Count 201 K/mm3 (150-450); RBC Distribution Width CV 19.8 % (11.6-14.6); RBC Distribution Width SD 57.2 fl (35.1-43.9); Red Blood Count 4.31 M/mm3 (4.6-6.2); White Blood Count 7.3 K/mm3 (4.4-11.0)
[2022-08-18 10:57] LABS: Albumin, Serum 2.7 g/dL (3.2-5.0); BUN 51 mg/dL (7-18); Calcium,Total 7.7 mg/dL (8.5-10.1); Chloride 98 mmol/L (98-107); Creatinine, Serum 3.63 mg/dL (0.70-1.30); EST Glomerular Filtration Rate 19 mL/min (>60); Est Glom Filt Rate - Afr Amer 22 mL/min (>60); Estimated Creatinine Clearance 24.94 ml/min; Glucose 218 mg/dL (74-106); Magnesium 2.3 mg/dL (1.6-2.6); Phosphorus 5.7 mg/dL (2.5-4.9); Potassium 4.5 mmol/L (3.5-5.1); Sodium Level 131 mmol/L (136-145)
[2022-08-18] MEDS: FLUTICASONE/UMECLIDIN/VILANTER 1 EACH BLST.W.DEV INHALATION (11:18)
[2022-08-18] MEDS: Insulin Glargine-YFGN 100 UNIT/ML Pen 50 UNIT SC (12:01)
[2022-08-18 12:20] LABS: Bacteria 0 SEEN /hpf (None Seen); Mucous, Urine 0 SEEN /hpf (<or=2+); Squamous Epithelial Cells - UA 0 SEEN /hpf (0-5)
[2022-08-18 12:26] LABS: Color, Urine Yellow (Yellow); Glucose, Dipstick Normal (Normal); Ketone-Dipstick Negative (Negative); Leukocyte Esterase-Dipstick 25 /ul (Negative); Nitrite-Dipstick Negative (Negative); Occult Blood-Urine 250 /ul (Negative); Protein-Dipstick 30 mg/dl (Negative); Urine Bilirubin Dipstick Negative (Negative); Urine Clarity Sl. Cloudy (Clear); Urine Urobilinogen Normal (Normal)
[2022-08-18 12:35] LABS: Red Blood Cells-Urine 50-100 SEEN /hpf (0-5); White Blood Cells 0-5 SEEN /hpf (0-5)
--- NOTE | 2022-08-18 13:39 | PCM.PN.HOSP ---
Reason for Visit Reason for Visit: Feeling jittery/decreased urine output Subjective Subjective Patient indicates he is feeling much better this morning since he had dialysis. Was on CVVHD through the night. Required 5 mics of Levophed for a very short period of time. Heart rate and blood pressure both improved this morning. Plan is to likely transition to HD. Urine output is improving and he has no further hematuria. We are trying to touch base with urology to see if we can discontinue continuous irrigation. Jittering has decreased and myoclonic jerking is significantly improved. Objective Data Objective Data Vital Signs: Vital Signs Temp Pulse Resp BP Pulse Ox O2 Del Method O2 Flow Rate 98.0 F 82 15 146/69 H 96 Nasal Cannula 3 08/18/22 12:00 08/18/22 13:00 08/18/22 13:00 08/18/22 13:00 08/18/22 13:00 08/18/22 13:00 08/18/22 13:00 Oxygen Flow Rate (L/min) 3 Oxygen Delivery Method Nasal Cannula Weight: 189.9 kg Body Mass Index (BMI) 56.7 Intake & Output: Intake and Output for Last 24 Hours 08/16/22 08/17/22 08/18/22 23:59 23:59 23:59 Intake Total 2980.0 / 2980.0 5220.20 / 5229.60 742.50 / 742.50 Output Total 0 / 100 1075 / 1075 Balance 2980.0 / 2880.0 4145.20 / 4154.60 742.50 / 742.50 Lab / Micro Data Result Diagrams: 08/18/22 10:16 08/18/22 10:16 Labs: Laboratory Results - last 24 hr 08/17/22 12:00: POC Glucose 172 H 08/17/22 13:45: Sodium 122 L, Potassium 6.6 H*, Chloride 85 L, Carbon Dioxide 23.0, Anion Gap 14, BUN 88 H, Creatinine 8.28 H*, Estim Creat Clear Calc 10.93, Est GFR (MDRD) Af Amer 9 L, Est GFR (MDRD) Non-Af 7 L, BUN/Creatinine Ratio 10.6, Glucose 172 H, Calcium 7.3 L 08/17/22 13:45: Total Creatine Kinase 33 L 08/17/22 15:15: Blood Type A POSITIVE 08/17/22 16:39: POC Glucose 191 H 08/17/22 21:05: WBC 11.0, RBC 4.12 L, Hgb 10.2 L, Hct 33.1 L, MCV 80.3, MCH 24.8 L, MCHC 30.8 L, RDW Std Deviation 57.8 H, RDW Coeff of Brina 20.3 H, Plt Count 211, MPV 10.2, Differential Comment SCANNED 08/17/22 21:05: APTT 39.2 H 08/17/22 21:05: Sodium 125 L, Potassium 5.3 H, Chloride 88 L, Carbon Dioxide 25.0, BUN 81 H, Creatinine 6.97 H, Estim Creat Clear Calc 12.99, Est GFR (MDRD) Af Amer 11 L, Est GFR (MDRD) Non-Af 9 L, BUN/Creatinine Ratio 11.6, Glucose 170 H, Calcium 7.2 L, Phosphorus 8.6 H, Magnesium 2.4, Albumin 2.8 L 08/17/22 21:30: POC Glucose 163 H 08/18/22 03:00: Sodium 129 L, Potassium 4.7, Chloride 93 L, Carbon Dioxide 26.0, Anion Gap 10, BUN 62 H, Creatinine 4.88 H, Estim Creat Clear Calc 18.55, Est GFR (MDRD) Af Amer 16 L, Est GFR (MDRD) Non-Af 13 L, BUN/Creatinine Ratio 12.7, Glucose 186 H, Calcium 7.6 L, Phosphorus 7.1 H, Magnesium 2.3, Total Bilirubin 0.50, AST 33, ALT 25, Alkaline Phosphatase 66, Total Protein 6.7, Albumin 2.9 L, Globulin 3.8, Albumin/Globulin Ratio 0.8 L 08/18/22 03:00: WBC 11.0, RBC 4.58 L, Hgb 11.4 L, Hct 37.0 L, MCV 80.8, MCH 24.9 L, MCHC 30.8 L, RDW Std Deviation 57.9 H, RDW Coeff of Brina 20.3 H, Plt Count 243, MPV 10.4, Immature Gran % (Auto) 0.700, Neut % (Auto) 82.9 H, Lymph % (Auto) 3.6 L, [place] % (Auto) 11.7 H, Eos % (Auto) 0.8, Baso % (Auto) 0.3, Absolute Neuts (auto) 9.1 H, Absolute Lymphs (auto) 0.39 L, Nucleated RBC % 0, Differential Comment SCANNED, Anisocytosis 1+, Microcytosis 1+ 08/18/22 03:00: Sodium Cancelled, Potassium Cancelled, Chloride Cancelled, Carbon Dioxide Cancelled, BUN Cancelled, Creatinine Cancelled, Estim Creat Clear Calc Cancelled, Est GFR (MDRD) Af Amer Cancelled, Est GFR (MDRD) Non-Af Cancelled, BUN/Creatinine Ratio Cancelled, Glucose Cancelled, Calcium Cancelled, Phosphorus Cancelled, Magnesium Cancelled, Albumin Cancelled 08/18/22 03:00: APTT 41.1 H 08/18/22 10:16: WBC 7.3, RBC 4.31 L, Hgb 10.9 L, Hct 34.7 L, MCV 80.5, MCH 25.3 L, MCHC 31.4 L, RDW Std Deviation 57.2 H, RDW Coeff of Brina 19.8 H, Plt Count 201, MPV 10.2 08/18/22 10:16: APTT 41.0 H 08/18/22 10:16: Sodium 131 L, Potassium 4.5, Chloride 98, Carbon Dioxide 26.0, BUN 51 H, Creatinine 3.63 H, Estim Creat Clear Calc 24.94, Est GFR (MDRD) Af Amer 22 L, Est GFR (MDRD) Non-Af 19 L, BUN/Creatinine Ratio 14.0, Glucose 218 H, Calcium 7.7 L, Phosphorus 5.7 H, Magnesium 2.3, Albumin 2.7 L 08/18/22 12:00: Urine Color Yellow, Urine Clarity Sl. Cloudy, Urine pH 5.0, Ur Specific [place] 1.010, Urine Protein 30 H, Urine Glucose (UA) Normal, Urine Ketones Negative, Urine Occult Blood 250 H, Urine Nitrite Negative, Urine Bilirubin Negative, Urine Urobilinogen Normal, Ur Leukocyte Esterase 25 H, Urine RBC 50-100 SEEN, Urine WBC 0-5 SEEN, Ur Squamous Epith Cells 0 SEEN, Urine Bacteria 0 SEEN, Urine Mucus 0 SEEN ABG Data ABG results: ABG 08/17/22 22:54 Specimen Type ART Sample Site R Radial pH 7.35 Bicarbonate Actual 24.0 Total CO2 25 Base Excess -2 O2 Saturation 95 ABG pCO2 43.2 ABG pO2 78 Perez Test Positive O2 Delivery Device CPAP Liter Flow 2.0 Radiography Diagnostic Testing: Radiology Impression Chest X-Ray 08/17/22 17:20 IMPRESSION: Pulmonary findings appear worse. Electronically Signed: Jesus Goodrich MD at 17:40 EDT Reading Location ID and State: [facility] / [place] , Service support , Rhythm Strip Rhythm Strip: A-fib Rate: 50 Ectopy: None Physical Exam Const alert, oriented x3, no apparent distress and well nourished; Negative for average body habitus or healthy appearing Constitutional Narrative: Middle-aged, morbidly obese, white male, sitting up in bed, much less confused, appears comfortable and nontoxic, no distress, much more alert and interactive HEENT head/scalp atraumatic, moist oral mucous membranes and oropharynx normal HEENT Narrative: Mallampati is 3-4, no thrush Resp normal respiratory effort, no retractions, no use of accessory muscles and clear to auscultation bilaterally Resp Narrative: Diffusely diminished however auscultation is inhibited by body habitus Auscultation: Negative for rales, rhonchi or wheezes Cardio regular rate, S1 normal heart sound, S2 normal heart sound, no murmurs, no rub, no gallops and no clicks Cardio Narrative: irregularly irregular rhythm GI normal to inspection, nondistended, normoactive bowel sounds and soft to palpation Extremity Extremity Narrative: Trace bilateral lower extremity edema, chronic changes consistent with chronic venous stasis bilateral lower extremities, pedal pulses are 2+, right wrist is very tender to light palpation and slightly erythematous consistent with gout-patient has history Skin no rashes or lesions noted, no jaundice, no petechiae and no mottling Skin Narrative: Erythema to right wrist is improved however chiller tender, right IJ dialysis catheter in place with clean dry intact dressing Neuro oriented x3, CN's II-XII intact bilaterally, moves all extremities and no focal motor deficits Neuro Narrative: No myoclonic jerking noted at the time of my exam Speech: speech normal Psych affect normal Psych Narrative: Very pleasant, appropriately interactive today with no signs of sedation Assessment & Plan Assessment/Plan (1) Hyponatremia: (2) Hyperkalemia: (3) TRESA (acute kidney injury): (4) Gross hematuria: (5) Metabolic acidosis: (6) Anemia: (7) Gout: (8) Hyperphosphatemia: (9) Toxic metabolic encephalopathy: (10) Bradycardia: PLAN: Plan TRESA -Baseline renal function appears to be between 0.9 and 1.1 -Patient is starting to have urine output -Lab at discharge showed a serum creatinine of 1.48 which had improved from previous and trended down to 1.45 on 08/12/2022.--> Unfortunately he had a dramatic and precipitous rise in his serum creatinine from 08/12/2022 to 08/14/2022 at which time his serum creatinine was 3.42 and then lorenzo to 7.10 and another 48 hours. -Etiology is unclear--> initially felt to be related to diuresis however with the rate of rise being that dramatic and no obstruction being found other etiologies are being pursued at this time including immune mediated disease--> work-up is still pending -CVVHD through the night and patient tolerated well with probable plans to transition to HD now that blood pressure and heart rate are improved -Urine studies are pending if able to obtain -Bicarb drip discontinued -CK was normal -Retroperitoneal ultrasound is unremarkable for any identifiable cause -Patient will likely need renal biopsy once clinically stable and INR has been reversed -Await Input from nephrology -Hold home diuretics and CHAPITO inhibitor -Nephrology is following-appreciate input Hyperkalemia/hyperphosphatemia/hyponatremia -Improved dramatically with CVVHD -Repeat lab in a.m. -Phosphate binder added by nephrology this morning Metabolic acidosis -Resolved -Bicarb drip discontinued -Dialysis per nephrology Bradycardia -Resolved -Restart home beta-kostas -We will continue to hold diltiazem for now and continue to monitor on telemetry Metabolic encephalopathy -Resolved Myoclonus -Resolving Gout-right wrist -Wrist is warm, erythematous, and severely tender -Patient has had history of gout -Restart home allopurinol -Continue prednisone 40 mg daily x5 days--> day 2 of 5 -Continue to monitor clinically Gross hematuria -Resolved -Urology following-appreciate input -Anticipate discontinuation of 3-weight irrigation Anemia -Relatively stable -Patient is anticoagulated and Coumadin is on hold for possible renal biopsy in the near future -Repeat lab in a.m. Seasonal allergies -Continue home therapy DM-2 with hyperglycemia -Continue home basal insulin -Restart home lispro 10 times 3 times daily now the appetite has improved and dialysis has been initiated -Continue SSI -Accu-Cheks as ordered -Hold home oral agents Chronic HFpEF -Systolic function is normal and echocardiogram however he has had right-sided ventricular systolic pressures at 50 mmHg showing evidence of pulmonary hypertension which likely is can attributing to his right-sided heart failure -Diuretics are on hold secondary to the above -Currently compensated HTN/HPL -Restart home betaxolol -Hold home diltiazem -Continue home atorvastatin -Hold home lisinopril Chronic atrial fibrillation -Bradycardia has resolved -Continue to monitor on telemetry -Hold home calcium channel kostas -Restart home beta-kostas -Hold home Coumadin with above ongoing issues MILAGRO -Continue nocturnal sleep apnea treatment with CPAP Hepatic steatosis -Recommend outpatient follow-up Morbid obesity -Recommend weight loss -Complicates treatment, prognosis, outcomes -BMI is 57 DVT prophylaxis -Repeat INR in a.m. -We will start heparin 3 times daily once INR is less than 2 for DVT prophylaxis as I do anticipate Coumadin needing to be held for some time in preparation for probable renal biopsy CODE STATUS Full code Charges/Coding Visit Charges Inpatient E&M: 86845 Subs Hosp L2
[2022-08-18 14:38] LABS: Urea Nitrogen, Urine 294 mg/dL (NO RANGE EST.); Urine Sodium 40 mmol/L (Not Establ.)
[2022-08-18] MEDS: Metoprolol Tartrate 25 MG Tablet PO ×2 (14:51→20:43)
--- NOTE | 2022-08-18 15:49 | CHAPLAIN ---
Type of Pastoral Visit _x__ Initial Visit ___ Follow-up Visit ___ On-call Visit ___ General Patient Visit ___ Spiritual Assessment ___ Family Conference ___ Bereavement ___ Rapid Response ___ Code Blue ___ Other (describe below) Pastoral Care Referral From _x__ Patient ___ Family ___ Nurse ___ Physician ___ Welder And Fitter ___ Public Health Inspector ___ Other (describe below) Sacrament/Intervention _x__ Active listening ___ Anointing ___ Alevism ___ Bereavement ___ Communion _x__ Dali exploration ___ _x__ Life review _x__ Prayer ___ Reconciliation ___ Sacrament of Sick _x__ Supportive presence ___ Wedding ___ Other (describe below) Pastoral Comments patient was seen in a previous admission; pt states that today is definitely better than yesterday but he still has some apprehensions about his future; pt had much support from family and long time friends which admittedly boosted his spirits today; pt reviews some of his life; pt welcomes presence to talk about feelings and the prayers for spiritual encouragement
[2022-08-18] MEDS: Insulin Lispro 100 UNIT/ML INSULN.PEN 10 UNIT SC (16:47)
[2022-08-18 17:06] LABS: Hematocrit 36.1 % (40-54); Hemoglobin 11.1 g/dL (13.0-16.5); Mean Corp Hgb Conc 30.7 g/dL (32-36); Mean Corpuscular Hgb 24.8 pg (27.0-32.0); Mean Corpuscular Volume 80.6 fL (80-94); Platelet Count 216 K/mm3 (150-450); RBC Distribution Width CV 19.7 % (11.6-14.6); RBC Distribution Width SD 56.1 fl (35.1-43.9); Red Blood Count 4.48 M/mm3 (4.6-6.2)
[2022-08-18 17:14] LABS: Partial Thromboplast Time 43.2 Seconds (24.1-36.2)
[2022-08-18 17:19] LABS: Albumin, Serum 2.9 g/dL (3.2-5.0); BUN 44 mg/dL (7-18); BUN/Creat Ratio 16.5 RATIO (10-20); Calcium,Total 8.3 mg/dL (8.5-10.1); Chloride 101 mmol/L (98-107); Creatinine, Serum 2.67 mg/dL (0.70-1.30); EST Glomerular Filtration Rate 26 mL/min (>60); Est Glom Filt Rate - Afr Amer 32 mL/min (>60); Estimated Creatinine Clearance 33.91 ml/min; Glucose 207 mg/dL (74-106); Magnesium 2.3 mg/dL (1.6-2.6); Phosphorus 3.9 mg/dL (2.5-4.9); Potassium 4.5 mmol/L (3.5-5.1); Sodium Level 135 mmol/L (136-145)
[2022-08-18] MEDS: Loratadine 10 MG Tablet 5 MG PO (20:43)
[2022-08-18] MEDS: Montelukast 10 MG Tablet PO (20:43)
[2022-08-18] MEDS: Atorvastatin Calcium 10 MG Tablet PO (20:43)
[2022-08-18] MEDS: MELATONIN 3 MG TABLET PO (21:04)
[2022-08-18] MEDS: Acetaminophen 325 MG Tablet 650 MG PO (23:43)
[2022-08-19] VITALS (22 sets, daily range): BP systolic 104–194; BP diastolic 52–102; PULSE 55–98; RESP 13–23; TEMP 36.1–37.1; O2SAT 90–97; BMI 56.0
[2022-08-19 05:48] LABS: Absolute Lymphocyte Count 0.54 X10^3/uL (0.83-4.51); Absolute Neutrophil Count 5.3 X10^3/uL (2.0-7.7); Basophil# 0.02 X10^3/uL; Basophil% 0.3 % (0-1); Eosinophils% 1.5 % (0-5); Hematocrit 33.2 % (40-54); Hemoglobin 10.2 g/dL (13.0-16.5); Lymphocyte # 0.54 X10^3/ul (0.83-4.51); Lymphocyte % 7.8 % (19-41); Mean Corp Hgb Conc 30.7 g/dL (32-36); Mean Corpuscular Hgb 25.1 pg (27.0-32.0); Mean Corpuscular Volume 81.8 fL (80-94); Mean Platelet Vol. 9.8 fl (6.2-12.0); Monocyte% 13.1 % (0-10); NRBC Flagged by Analyzer 0 % (0-5); Neutrophil % 76.9 % (47-70); POSITIVE DIFFERENTIAL YES; Platelet Count 215 K/mm3 (150-450); RBC Distribution Width CV 19.6 % (11.6-14.6); RBC Distribution Width SD 57.6 fl (35.1-43.9); Red Blood Count 4.06 M/mm3 (4.6-6.2); White Blood Count 6.9 K/mm3 (4.4-11.0)
[2022-08-19 05:54] LABS: Differential Indicated SCAN CRITERIA MET
[2022-08-19 06:09] LABS: ALB/GLOB Ratio 0.8 RATIO (0.9-2.4); AST(SGOT) 8 U/L (15-37); Alanine Aminotransfer ALT/SGPT 20 U/L (16-61); Albumin, Serum 2.7 g/dL (3.2-5.0); Alkaline Phosphatase 54 U/L (45-117); Anion Gap 7 (5-15); BUN 55 mg/dL (7-18); BUN/Creat Ratio 22.2 RATIO (10-20); Calcium,Total 8.1 mg/dL (8.5-10.1); Chloride 102 mmol/L (98-107); Creatinine, Serum 2.48 mg/dL (0.70-1.30); EST Glomerular Filtration Rate 29 mL/min (>60); Est Glom Filt Rate - Afr Amer 35 mL/min (>60); Estimated Creatinine Clearance 36.51 ml/min; Globulin 3.5 g/dL (2.2-4.2); Glucose 148 mg/dL (74-106); Potassium 3.9 mmol/L (3.5-5.1); Protein, Total 6.2 g/dL (6.4-8.2); Sodium Level 137 mmol/L (136-145)
[2022-08-19 06:36] LABS: International Normalized Ratio 2.6; Prothrombin Time (Protime)PT. 28.3 SECONDS (11.7-14.9)
[2022-08-19 06:40] LABS: Anisocytosis 1+; Differential Comment SCANNED; Hypochromasia RARE; Microcytosis 1+
[2022-08-19] MEDS: HYDROmorphone 0.5 MG/0.5 ML SYRINGE 0.25 MG IV ×3 (09:23→23:37)
--- NOTE | 2022-08-19 09:44 | PN.RENAL_ITS ---
Subjective Subjective Following for TRESA. The patient seen during hemodialysis today. He denies chest pain, shortness of breath, or nausea. Myoclonus has resolved. Objective Data Objective Data Vital Signs: Vital Signs Temp Pulse Resp BP Pulse Ox O2 Del Method O2 Flow Rate 97.0 F L 92 21 H 127/94 H 95 Nasal Cannula 2 08/19/22 08:00 08/19/22 09:00 08/19/22 09:00 08/19/22 09:00 08/19/22 09:00 08/19/22 09:00 08/19/22 09:00 Oxygen Flow Rate (L/min) 2 Oxygen Delivery Method Nasal Cannula Weight: 187.4 kg Body Mass Index (BMI) 56.0 Intake & Output: Intake and Output for Last 24 Hours 08/17/22 08/18/22 08/19/22 23:59 23:59 23:59 Intake Total 5220.20 / 5229.60 742.50 / 942.50 200 / 200 Output Total 1075 / 1075 450 / 800 450 / 450 Balance 4145.20 / 4154.60 292.50 / 142.50 -250 / -250 Lab / Micro Data Result Diagrams: 08/19/22 05:35 08/19/22 05:35 Labs: Laboratory Results - last 24 hr 08/18/22 10:16: WBC 7.3, RBC 4.31 L, Hgb 10.9 L, Hct 34.7 L, MCV 80.5, MCH 25.3 L, MCHC 31.4 L, RDW Std Deviation 57.2 H, RDW Coeff of Brina 19.8 H, Plt Count 2 01, MPV 10.2 08/18/22 10:16: APTT 41.0 H 08/18/22 10:16: Sodium 131 L, Potassium 4.5, Chloride 98, Carbon Dioxide 26.0, BUN 51 H, Creatinine 3.63 H, Estim Creat Clear Calc 24.94, Est GFR (MDRD) Af Amer 22 L, Est GFR (MDRD) Non-Af 19 L, BUN/Creatinine Ratio 14.0, Glucose 218 H, Calcium 7.7 L, Phosphorus 5.7 H, Magnesium 2.3, Albumin 2.7 L 08/18/22 12:00: Urine Color Yellow, Urine Clarity Sl. Cloudy, Urine pH 5.0, Ur Specific [place] 1.010, Urine Protein 30 H, Urine Glucose (UA) Normal, Urine Ketones Negative, Urine Occult Blood 250 H, Urine Nitrite Negative, Urine Bilirubin Negative, Urine Urobilinogen Normal, Ur Leukocyte Esterase 25 H, Urine RBC 50-100 SEEN, Urine WBC 0-5 SEEN, Ur Squamous Epith Cells 0 SEEN, Urine Bacteria 0 SEEN, Urine Mucus 0 SEEN 08/18/22 14:05: Ur Random Sodium 40, Urine Urea Nitrogen 294 08/18/22 16:50: WBC 7.0, RBC 4.48 L, Hgb 11.1 L, Hct 36.1 L, MCV 80.6, MCH 24.8 L, MCHC 30.7 L, RDW Std Deviation 56.1 H, RDW Coeff of Brina 19.7 H, Plt Count 216, MPV 10.0 08/18/22 16:50: APTT 43.2 H 08/18/22 16:50: Sodium 135 L, Potassium 4.5, Chloride 101, Carbon Dioxide 28.0, BUN 44 H, Creatinine 2.67 H, Estim Creat Clear Calc 33.91, Est GFR (MDRD) Af Amer 32 L, Est GFR (MDRD) Non-Af 26 L, BUN/Creatinine Ratio 16.5, Glucose 207 H, Calcium 8.3 L, Phosphorus 3.9, Magnesium 2.3, Albumin 2.9 L 08/19/22 05:35: PT 28.3 H, INR 2.6 08/19/22 05:35: WBC 6.9, RBC 4.06 L, Hgb 10.2 L, Hct 33.2 L, MCV 81.8, MCH 25.1 L, MCHC 30.7 L, RDW Std Deviation 57.6 H, RDW Coeff of Brina 19.6 H, Plt Count 215, MPV 9.8, Immature Gran % (Auto) 0.400, Neut % (Auto) 76.9 H, Lymph % (Auto) 7.8 L, [place] % (Auto) 13.1 H, Eos % (Auto) 1.5, Baso % (Auto) 0.3, Absolute Neuts (auto) 5.3, Absolute Lymphs (auto) 0.54 L, Nucleated RBC % 0, Differential C omment SCANNED, Hypochromasia RARE, Anisocytosis 1+, Microcytosis 1+ 08/19/22 05:35: Sodium 137, Potassium 3.9, Chloride 102, Carbon Dioxide 28.0, Anion Gap 7, BUN 55 H, Creatinine 2.48 H, Estim Creat Clear Calc 36.51, Est GFR (MDRD) Af Amer 35 L, Est GFR (MDRD) Non-Af 29 L, BUN/Creatinine Ratio 22.2 H, Glucose 148 H, Calcium 8.1 L, Total Bilirubin 0.30, AST 8 L, ALT 20, Alkaline Phosphatase 54, Total Protein 6.2 L, Albumin 2.7 L, Globulin 3.5, Albumin/Globulin Ratio 0.8 L Rhythm Strip Rhythm Strip: A-fib Rate: 50 Ectopy: None Physical Exam Narrative General: A&Ox3, no apparent distress HEENT: Normocephalic, atraumatic. Mucous membrane moist Heart: Normal S1, S2. No rubs, murmurs, or gallops. Lungs: Clear to auscultation anteriorly. Decreased breath sound at bases bilaterally. Abdomen: Obese, normal bowel sounds, soft, nontender Extremities: 1+ edema of the lower extremities bilaterally. right IJ non-tunneled HD catheter dressing C/D/I Assessment & Plan Assessment/Plan (1) TRESA (acute kidney injury): (2) Hyperkalemia: (3) Hyponatremia: PLAN: Plan Impression/Plan: The patient is a 57-year-old man with past history of type 2 diabetes mellitus, hypertension, atrial fibrillation, MILAGRO, morbid obesity, COPD, and hype rlipidemia. The patient was admitted to the hospital on 08/16/2022 with acute kidney injury, oliguria and hyperkalemia. Acute kidney injury. Baseline serum creatinine had been around 1.4 to 1.5 mg/dL late July 2022 when admitted for heart failure. Prior to admission for heart failure exacerbation in July, serum creatinine had been around 0.9 to 1.1 mg/dL. Suspect serum creatinine 1.4 to 1.5 mg/dL is close to his actual baseline renal function as he was quite volume overloaded prior to admission in July 2022. Serum creatinine increased from 1.45 mg/dL on 08/12/2022 up to 8.28 mg/dL 08/17. We are in the process of working the patient up for the cause of acute kidney injury. Serologies are still pending. The patient did have bacteremia in July which can predispose antibody mediated GN. He also has a family history of ANCA vasculitis. However, there is no re cent hemoptysis or upper or lower respiratory tract infection. There is no evidence of urinary tract obstruction on renal ultrasound from 08/17/2022. 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 I am dialyzing the patient today. I supervised the hemodialysis procedure: F160 dialyzer is used, blood flow 400 mL/min, dialysate flow 600 mL/min, 3K/2.5Ca dialysate. We will continue to monitor for renal recovery. If no renal recovery by the weekend or if serologies suggestive of antibody mediated process or vasculitis, the patient will need a kidney biopsy. Discussed plan with patient and his family members who are at bedside, questions answered. Hyperkalemia. Hyperkalemia was likely due to TRESA on CKD along with concurrent use of CHAPITO inhibitor prior to admission. Patient was refractory to medical treatment for hyperkalemia. His potassium level lorenzo to 6.6 mmol/L on 08/17/2022 despite SPS and temporizing measures. Therefore, the patient was started on dialysis on 08/17/2022. Potassium level is stable today at 3.9 mmol/L. Hyponatremia. Prior hyponatremia was due to oliguric TRESA. Serum sodium was as low as 122 mmol/L on 08/17/2022. Serum sodium has improved with dialysis and is 137 mmol/L today. We will continue to monitor serum sodium. Hyperphosphatemia. Phosphorus was as high as 9.9 mg/dL on 08/17/2022. The patient was started on sevelamer at 800 mg with each meals. Phosphorus level was 3.9 mg/dL with binder and CRRT. We will recheck serum calcium and phosphorus again tomorrow. Nephrology plan discussed with Dr. Rebeka Alexandre.
[2022-08-19 10:18] LABS: Hepatitis B Surface Antibody Reactive; Hepatitis B Surface Antigen Non-Reactive (Nonreactive)
--- NOTE | 2022-08-19 10:39 | NURSING ---
Pt c/o abd pain, bladder spasms. Low UO noted to solano. Solano irrigated w/ 20 cc NS. A couple tiny clots noted to pass through solano tubing. Draining a large amount of tea colored urine.
--- NOTE | 2022-08-19 12:44 | DIALYSIS ---
Hemodialysis tx completed x 3.5 hours without complications. Pt tolerated tx well, fluid removal 1,000ml per order. Vitals stab le throughout tx. Verbal report to SIN Jimenes post tx.
[2022-08-19] MEDS: Metoprolol Tartrate 25 MG Tablet PO ×2 (13:31→19:50)
[2022-08-19] MEDS: Allopurinol 300 MG Tablet PO (13:32)
[2022-08-19] MEDS: SEVELAMER CARBONATE 800 MG TABLET PO (13:32)
[2022-08-19] MEDS: Insulin Glargine-YFGN 100 UNIT/ML Pen 50 UNIT SC (13:32)
[2022-08-19] MEDS: predniSONE 20 MG Tablet 40 MG PO (13:32)
[2022-08-19] MEDS: Insulin Lispro 100 UNIT/ML INSULN.PEN 10 UNIT SC (13:33)
[2022-08-19] MEDS: FLUTICASONE/UMECLIDIN/VILANTER 1 EACH BLST.W.DEV INHALATION (13:34)
[2022-08-19] MEDS: hydrALAZINE 50 MG Tablet PO ×2 (13:35→19:51)
--- NOTE | 2022-08-19 13:58 | PN.HOSP_ITS ---
Reason for Visit Reason for Visit: Feeling jittery/decreased urine output Subjective Subjective Patient has been transitioned off CVVHD. Blood pressure and heart rates are stabilized. Plan is to transition to hemodialysis today which she has completed and tolerated well. Urine output seems to be improving. Myoclonus has resolved and patient not having any shortness of breath. Mental status has improved dramatically. Objective Data Objective Data Vital Signs: Vital Signs Temp Pulse Resp BP Pulse Ox O2 Del Method O2 Flow Rate 97.0 F L 92 19 H 128/63 H 94 Nasal Cannula 2 08/19/22 08:00 08/19/22 13:35 08/19/22 11:00 08/19/22 11:00 08/19/22 11:00 08/19/22 11:00 08/19/22 11:00 Oxygen Flow Rate (L/min) 2 Oxygen Delivery Method Nasal Cannula Weight: 187.4 kg Body Mass Index (BMI) 56.0 Intake & Output: Intake and Output for Last 24 Hours 08/17/22 08/18/22 08/19/22 23:59 23:59 23:59 Intake Total 5220.20 / 5229.60 742.50 / 942.50 200 / 200 Output Total 1075 / 1075 450 / 800 1900 / 1900 Balance 4145.20 / 4154.60 292.50 / 142.50 -1700 / -1700 Lab / Micro Data Result Diagrams: 08/19/22 05:35 08/19/22 05:35 Labs: Laboratory Results - last 24 hr 08/18/22 14:05: Ur Random Sodium 40, Urine Urea Nitrogen 294 08/18/22 16:50: WBC 7.0, RBC 4.48 L, Hgb 11.1 L, Hct 36.1 L, MCV 80.6, MCH 24.8 L, MCHC 30.7 L, RDW Std Deviation 56.1 H, RDW Coeff of Brina 19.7 H, Plt Count 216, MPV 10.0 08/18/22 16:50: APTT 43.2 H 08/18/22 16:50: Sodium 135 L, Potassium 4.5, Chloride 101, Carbon Dioxide 28.0, BUN 44 H, Creatinine 2.67 H, Estim Creat Clear Calc 33.91, Est GFR (MDRD) Af Amer 32 L, Est GFR (MDRD) Non-Af 26 L, BUN/Creatinine Ratio 16.5, Glucose 207 H, Calcium 8.3 L, Phosphorus 3.9, Magnesium 2.3, Albumin 2.9 L 08/19/22 05:35: PT 28.3 H, INR 2.6 08/19/22 05:35: WBC 6.9, RBC 4.06 L, Hgb 10.2 L, Hct 33.2 L, MCV 81.8, MCH 25.1 L, MCHC 30.7 L, RDW Std Deviation 57.6 H, RDW Coeff of Brina 19.6 H, Plt Count 215, MPV 9.8, Immature Gran % (Auto) 0.400, Neut % (Auto) 76.9 H, Lymph % (Auto) 7.8 L, [place] % (Auto) 13.1 H, Eos % (Auto) 1.5, Baso % (Auto) 0.3, Absolute Neuts (auto) 5.3, Absolute Lymphs (auto) 0.54 L, Nucleated RBC % 0, Differential Comment SCANNED, Hypochromasia RARE, Anisocytosis 1+, Microcytosis 1+ 08/19/22 05:35: Sodium 137, Potassium 3.9, Chloride 102, Carbon Dioxide 28.0, Anion Gap 7, BUN 55 H, Creatinine 2.48 H, Estim Creat Clear Calc 36.51, Est GFR (MDRD) Af Amer 35 L, Est GFR (MDRD) Non-Af 29 L, BUN/Creatinine Ratio 22.2 H, Glucose 148 H, Calcium 8.1 L, Total Bilirubin 0.30, AST 8 L, ALT 20, Alkaline Phosphatase 54, Total Protein 6.2 L, Albumin 2.7 L, Globulin 3.5, Albumin/Globulin Ratio 0.8 L 08/19/22 09:25: Hep Bs Antigen Non-Reactive, Hep Bs Antibody Reactive Rhythm Strip Rhythm Strip: A-fib Rate: 50 Ectopy: None Physical Exam Const alert, oriented x3, no apparent distress and well nourished; Negative for average body habitus or healthy appearing Constitutional Narrative: Middle-aged, morbidly obese, white male, sitting up in bed, cognition is normal today, appears comfortable and nontoxic, no distress, much more alert and interactive, nursing at bedside HEENT head/scalp atraumatic, moist oral mucous membranes and oropharynx normal HEENT Narrative: Mallampati 3-4, no thrush Head and Scalp: normocephalic Resp normal respiratory effort, no retractions, no use of accessory muscles and clear to auscultation bilaterally Resp Narrative: Diffusely diminished however auscultation is inhibited by body habitus Auscultation: Negative for rales, rhonchi or wheezes Cardio regular rate, S1 normal heart sound, S2 normal heart sound, no murmurs, no rub, no gallops and no clicks Cardio Narrative: irregularly irregular rhythm GI normal to inspection, nondistended, normoactive bowel sounds and soft to palpation GI Narrative: No significant anasarca noted at this time Extremity Extremity Narrative: Trace bilateral lower extremity edema, chronic changes consistent with chronic venous stasis bilateral lower extremities, pedal pulses are 2+, right wrist erythema is improved and pain with palpation has decreased however range of motion is still limited secondary to pain Skin no rashes or lesions noted, no jaundice, no petechiae and no mottling Skin Narrative: Right IJ dialysis catheter in place and is clean dry and intact Neuro oriented x3, moves all extremities and no focal motor deficits Neuro Narrative: No myoclonic jerking noted at the time of my exam Speech: speech normal Psych affect normal Psych Narrative: Very pleasant, appropriately interactive Assessment & Plan Assessment/Plan (1) Hyponatremia: (2) Hyperkalemia: (3) TRESA (acute kidney injury): (4) Gross hematuria: (5) Metabolic acidosis: (6) Anemia: (7) Gout: (8) Hyperphosphatemia: (9) Toxic metabolic encephalopathy: (10) Bradycardia: PLAN: Plan TRESA -Baseline renal function appears to be between 0.9 and 1.1 -It looks as if he had about 900 cc of urine output in the last 24 hours -Lab at discharge showed a serum creatinine of 1.48 which had improved from previous and trended down to 1.45 on 08/12/2022.--> Unfortunately he had a dramatic and precipitous rise in his serum creatinine from 08/12/2022 to 08/14/2022 at which time his serum creatinine was 3.42 and then lorenzo to 7.10 and another 48 hours. -Etiology is unclear--> initially felt to be related to diuresis however with the rate of rise being that dramatic and no obstruction being found other etiologies are being pursued at this time including immune mediated disease--> work-up is still pending -Patient tolerated HD well today -Retroperitoneal ultrasound is unremarkable for any identifiable cause -Patient will likely need renal biopsy once clinically stable and INR has been reversed -Await Input from nephrology -Hold home diuretics and CHAPITO inhibitor -Nephrology is following-appreciate input Hyperkalemia/hyperphosphatemia/hyponatremia -Improved dramatically with CVVHD -Repeat lab in a.m. -Continue phosphate binder Gout-right wrist -Wrist is improving -Patient has had history of gout -Continue home allopurinol -Continue prednisone 40 mg daily x5 days--> day 3 of 5--> may need to extend depending on clinical response -Continue to monitor clinically Gross hematuria -Resolved -Repeat UA once stabilized for microscopic hematuria Anemia -Stable -Patient is anticoagulated and Coumadin is on hold for possible renal biopsy in the near future -Repeat lab in a.m. Seasonal allergies -Continue home therapy DM-2 with hyperglycemia -Continue home basal insulin -Continue lispro 10 units 3 times daily -Continue SSI -Accu-Cheks as ordered -Hold home oral agents Chronic HFpEF -Systolic function is normal and echocardiogram however he has had right-sided ventricular systolic pressures at 50 mmHg showing evidence of pulmonary hyper tension which likely is can attributing to his right-sided heart failure -Diuretics are on hold secondary to the above -Currently compensated HTN/HPL -Continue beta-kostas -Start hydralazine 50 3 times daily -Hold home diltiazem -Not need to reinitiate -Continue home atorvastatin -Hold home lisinopril Chronic atrial fibrillation -Continue to monitor on telemetry -Hold home calcium channel kostas--> and if rate stays controlled during hospit al stay may not need to reinitiate -Restart home beta-kostas -Hold home Coumadin with above ongoing issues MILAGRO -Continue nocturnal sleep apnea treatment with CPAP Hepatic steatosis -Recommend outpatient follow-up Morbid obesity -Recommend weight loss -Complicates treatment, prognosis, outcomes -BMI is 57 DVT prophylaxis -Repeat INR in a.m.--> 2.6 today -We will start heparin 3 times daily once INR is less than 2 for DVT prophylaxis as I do anticipate Coumadin needing to be held for some time in preparation for probable renal biopsy CODE STATUS Full code Charges/Coding Visit Charges Inpatient E&M: 99465 Subs Hosp L2
[2022-08-19 14:06] LABS: Bedside Glucose 107 mg/dL (74-106)
[2022-08-19 14:10] LABS: ANTINUCLEAR ANTIBODIES DIRECT Negative (Negative)
[2022-08-19] MEDS: Loratadine 10 MG Tablet 5 MG PO (19:51)
[2022-08-19] MEDS: Atorvastatin Calcium 10 MG Tablet PO (19:51)
[2022-08-19] MEDS: Montelukast 10 MG Tablet PO (19:51)
[2022-08-19] MEDS: 0.9% Saline Lock 10 ML Syringe IV ×2 (19:52→23:37)
--- NOTE | 2022-08-19 21:00 | NURSING ---
pt and family are requesting transfer to [facility]. pt states, ok was given by Dr. Alexandre. Dr Medrano notified. per physician pt will be transfered in morning. pt and family provided with update at this time. will monitor pt.
[2022-08-19] MEDS: Insulin Lispro 100 UNIT/ML INSULN.PEN SC (23:19)
[2022-08-20] VITALS (12 sets, daily range): BP systolic 140–193; BP diastolic 73–83; PULSE 72–130; RESP 16–18; TEMP 36.5–36.7; O2SAT 92–98; BMI 54.8
[2022-08-20] MEDS: hydrALAZINE 50 MG Tablet PO (05:25)
[2022-08-20 06:58] LABS: Absolute Lymphocyte Count 0.54 X10^3/uL (0.83-4.51); Absolute Neutrophil Count 4.6 X10^3/uL (2.0-7.7); Basophil# 0.04 X10^3/uL; Basophil% 0.7 % (0-1); Eosinophil# 0.07 X10^3/uL; Eosinophils% 1.2 % (0-5); Hematocrit 36.8 % (40-54); Lymphocyte # 0.54 X10^3/ul (0.83-4.51); Lymphocyte % 8.9 % (19-41); Mean Corp Hgb Conc 29.9 g/dL (32-36); Mean Corpuscular Hgb 25.1 pg (27.0-32.0); Mean Corpuscular Volume 83.8 fL (80-94); Mean Platelet Vol. 10.3 fl (6.2-12.0); Monocyte% 13.2 % (0-10); NRBC Flagged by Analyzer 0 % (0-5); Neutrophil # 4.56 X10^3/uL (2.7-7.7); Neutrophil % 75.3 % (47-70); POSITIVE DIFFERENTIAL YES; Platelet Count 238 K/mm3 (150-450); RBC Distribution Width CV 19.5 % (11.6-14.6); RBC Distribution Width SD 58.2 fl (35.1-43.9); Red Blood Count 4.39 M/mm3 (4.6-6.2); White Blood Count 6.1 K/mm3 (4.4-11.0)
[2022-08-20 06:59] LABS: Differential Indicated SCAN CRITERIA MET
[2022-08-20 07:11] LABS: Anion Gap 7 (5-15); BUN 40 mg/dL (7-18); Calcium,Total 8.6 mg/dL (8.5-10.1); Chloride 101 mmol/L (98-107); EST Glomerular Filtration Rate 48 mL/min (>60); Est Glom Filt Rate - Afr Amer 58 mL/min (>60); Estimated Creatinine Clearance 56.58 ml/min; Glucose 119 mg/dL (74-106); Phosphorus 2.8 mg/dL (2.5-4.9); Potassium 3.8 mmol/L (3.5-5.1); Sodium Level 137 mmol/L (136-145)
[2022-08-20 07:28] LABS: Differential Comment SCANNED
[2022-08-20] MEDS: Insulin Lispro 100 UNIT/ML INSULN.PEN 10 UNIT SC ×3 (08:53→17:27)
[2022-08-20] MEDS: Allopurinol 300 MG Tablet PO (08:54)
[2022-08-20] MEDS: predniSONE 20 MG Tablet 40 MG PO (08:54)
[2022-08-20] MEDS: SEVELAMER CARBONATE 800 MG TABLET PO ×3 (08:54→17:24)
[2022-08-20] MEDS: Insulin Glargine-YFGN 100 UNIT/ML Pen 50 UNIT SC (08:55)
[2022-08-20] MEDS: FLUTICASONE/UMECLIDIN/VILANTER 1 EACH BLST.W.DEV INHALATION (08:56)
[2022-08-20] MEDS: Metoprolol Tartrate 25 MG Tablet PO ×2 (08:56→22:52)
[2022-08-20 09:09] LABS: Complement C3 86 mg/dL (82-167); Cytoplasmic Ab (C-ANCA) <1:20 titer (Neg:<1:20); Perinuclear Ab (P-ANCA) <1:20 titer (Neg:<1:20)
[2022-08-20] MEDS: Sodium Chloride 0.65% 1 SPRAY SPRAY.BTL 2 SPRAY NASAL (11:44)
--- NOTE | 2022-08-20 13:49 | PN.RENAL_ITS ---
Subjective Subjective Following for dialysis requiring acute kidney injury Patient sitting in chair. No overnight events. Reports feeling better today. Multiple family members at bedside. Objective Data Objective Data Vital Signs: Vital Signs Temp Pulse Resp BP Pulse Ox O2 Del Method O2 Flow Rate 97.9 F 109 H 16 140/73 H 92 Room Air 2 08/20/22 08:52 08/20/22 08:56 08/20/22 08:52 08/20/22 08:56 08/20/22 11:25 08/20/22 11:25 08/20/22 09:09 Oxygen Flow Rate (L/min) 2 Oxygen Delivery Method Room Air Weight: 183.3 kg Body Mass Index (BMI) 54.8 Intake & Output: Intake and Output for Last 24 Hours 08/18/22 08/19/22 08/20/22 23:59 23:59 23:59 Intake Total 742.50 / 942.50 440 / 790 470 / 470 Output Total 450 / 800 2200 / 3075 2175 / 2175 Balance 292.50 / 142.50 -1760 / -2285 -1705 / -1705 Lab / Micro Data Result Diagrams: 08/21/22 05:55 08/21/22 05:55 Labs: Laboratory Results - last 24 hr 08/17/22 13:45: HARISH Screen Negative 08/17/22 13:45: c-ANCA Antibody <1:20, Atypical p-ANCA <1:20, p-ANCA Antibody <1:20, Complement C3 86, Complement C4 7 L 08/19/22 13:30: POC Glucose 107 H 08/20/22 05:35: PT 23.0 H, INR 2.0 08/20/22 05:35: Sodium 137, Potassium 3.8, Chloride 101, Carbon Dioxide 29.0, Anion Gap 7, BUN 40 H, Creatinine 1.60 H, Estim Creat Clear Calc 56.58, Est GFR (MDRD) Af Amer 58 L, Est GFR (MDRD) Non-Af 48 L, BUN/Creatinine Ratio 25.0 H, Glucose 119 H, Calcium 8.6, Phosphorus 2.8, Albumin 3.0 L 08/20/22 05:35: WBC 6.1, RBC 4.39 L, Hgb 11.0 L, Hct 36.8 L, MCV 83.8, MCH 25.1 L, MCHC 29.9 L, RDW Std Deviation 58.2 H, RDW Coeff of Brina 19.5 H, Plt Count 238, MPV 10.3, Immature Gran % (Auto) 0.700, Neut % (Auto) 75.3 H, Lymph % (Auto) 8.9 L, [place] % (Auto) 13.2 H, Eos % (Auto) 1.2, Baso % (Auto) 0.7, Absol jeff Neuts (auto) 4.6, Absolute Lymphs (auto) 0.54 L, Nucleated RBC % 0, Diffe rential Comment SCANNED Micro: Microbiology 08/18/22 07:35 Blood Culture (Wb) - Right Forearm Blood Culture - Preliminary No growth in 48 hours. 08/18/22 07:15 Blood Culture (Wb) - Left Forearm Blood Culture - Preliminary No growth in 48 hours. Rhythm Strip Rhythm Strip: A-fib Rate: 50 Ectopy: None Physical Exam Narrative General: A&Ox3, no apparent distress HEENT: Normocephalic, atraumatic. Mucous membranes moist Heart: Normal S1, S2. No rubs, murmurs, or gallops. Lungs: Clear to auscultation anteriorly. Abdomen: Obese, normal bowel sounds, soft, nontender Extremities: 1+ edema of the lower extremities bilaterally. right IJ non-tunneled HD catheter dressing C/D/I Indwelling Keyes catheter with clear yellow urine in bag Assessment & Plan Assessment/Plan (1) TRESA (acute kidney injury): (2) Hyperkalemia: (3) Hyponatremia: PLAN: Plan Impression/Plan: The patient is a 57-year-old man with past history of type 2 diabetes mellitus, hypertension, atrial fibrillation, MILAGRO, morbid obesity, COPD, and hyperlipidemia. The patient was admitted to the hospital on 08/16/2022 with acute kidney injury, oliguria and hyperkalemia. Acute kidney injury. Baseline serum creatinine had been around 1.4 to 1.5 mg/dL late July 2022 when admitted for heart failure. Prior to admission for heart failure exacerbation in July, serum creatinine had been around 0.9 to 1.1 mg/dL. Suspect serum creatinine 1.4 to 1.5 mg/dL is close to his actual baseline renal function as he was quite volume overloaded prior to admission in July 2022. Serum creatinine increased from 1.45 mg/dL on 08/12/2022 up to 8.28 mg/dL 08/17. We are in the process of working the patient up for the cause of acute kidney injury. Serologies thus far: P-ANCA, c-ANCA, HARISH negative, C3 complement normal at 86. C4 complement low at 7. The patient did have bacteremia in July which can predispose antibody mediated GN. He also has a family history of ANCA vasculitis. However, there is no recent hemoptysis or upper or lower respiratory tract infection. There is no evidence of urinary tract obstruction on renal ultrasound from 08/17/2022. Patient was started on CRRT 08/17, had dialysis again on 08/18. 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 Urine output is picking up. Labs ordered for the morning. If no renal recovery by the weekend or if serologies suggestive of antibody mediated process or vasculitis, the patient will need a kidney biopsy. Also if no noted renal recovery, patient will need tunneled HD catheter placed and outpatient hemodialysis arrangements Hyperkalemia. Hyperkalemia was likely due to TRESA on CKD along with concurrent use of CHAPITO in hibitor prior to admission. Patient was refractory to medical treatment for hyperkalemia. His potassium level lorenzo to 6.6 mmol/L on 08/17/2022 despite SPS and temporizing measures. Therefore, the patient was started on dialysis on 08/17/2022. Potassium level is stable today at 3.8 mmol/L. Hyponatremia. Prior hyponatremia was due to oliguric TRESA. Serum sodium was as low as 122 mmol/L on 08/17/2022. Serum sodium has improved, currently 137 mmol/L. Hyperphosphatemia. Phosphorus was as high as 9.9 mg/dL on 08/17/2022. The patient was started on sevelamer at 800 mg with each meals. Phosphorus level improved, currently 2.8. We will check phosphorus again tomorrow and if low will stop binder.
[2022-08-20] MEDS: Insulin Lispro 100 UNIT/ML INSULN.PEN SC ×2 (14:13→17:28)
[2022-08-20] MEDS: hydrALAZINE 50 MG Tablet 100 MG PO ×2 (14:13→22:51)
--- NOTE | 2022-08-20 14:16 | PCM.PN.HOSP ---
Reason for Visit Reason for Visit: Feeling jittery/decreased urine output Subjective Subjective Patient's been having some intermittent nosebleeds out of his right nostrils. Humidified oxygen was placed. I told him we would go ahead and add some [place] nasal spray. He had some complaints about nursing in the ICU. He was frustrated that he did not get a meal until very late last night. His right wrist pain is markedly better. His myoclonus has resolved. Urine output is improving. Patient and family were at the bedside and they would like to initiate transfer to [facility]. I did inform them that he may not be able to be transferred immediately as I do not know with her bed availability is and they wanted me to go ahead and pursue transfer at this time. I have called and am awaiting acceptance. He is aware that he may be able to be discharged from the hospital prior to getting transferred. Objective Data Objective Data Vital Signs: Vital Signs Temp Pulse Resp BP Pulse Ox O2 Del Method O2 Flow Rate 98.0 F 88 16 170/79 H 95 Room Air 2 08/20/22 14:11 08/20/22 14:13 08/20/22 14:11 08/20/22 14:13 08/20/22 14:11 08/20/22 14:11 08/20/22 09:09 Oxygen Flow Rate (L/min) 2 Oxygen Delivery Method Room Air Weight: 183.3 kg Body Mass Index (BMI) 54.8 Intake & Output: Intake and Output for Last 24 Hours 08/18/22 08/19/22 08/20/22 23:59 23:59 23:59 Intake Total 742.50 / 942.50 440 / 790 470 / 470 Output Total 450 / 800 2200 / 3075 2175 / 2175 Balance 292.50 / 142.50 -1760 / -2285 -1705 / -1705 Lab / Micro Data Result Diagrams: 08/20/22 05:35 08/20/22 05:35 Labs: Laboratory Results - last 24 hr 08/17/22 13:45: c-ANCA Antibody <1:20, Atypical p-ANCA <1:20, p-ANCA Antibody <1:20, Complement C3 86, Complement C4 7 L 08/20/22 05:35: PT 23.0 H, INR 2.0 08/20/22 05:35: Sodium 137, Potassium 3.8, Chloride 101, Carbon Dioxide 29.0, Anion Gap 7, BUN 40 H, Creatinine 1.60 H, Estim Creat Clear Calc 56.58, Est GFR (MDRD) Af Amer 58 L, Est GFR (MDRD) Non-Af 48 L, BUN/Creatinine Ratio 25.0 H, Glucose 119 H, Calcium 8.6, Phosphorus 2.8, Albumin 3.0 L 08/20/22 05:35: WBC 6.1, RBC 4.39 L, Hgb 11.0 L, Hct 36.8 L, MCV 83.8, MCH 25.1 L, MCHC 29.9 L, RDW Std Deviation 58.2 H, RDW Coeff of Brina 19.5 H, Plt Count 238, MPV 10.3, Immature Gran % (Auto) 0.700, Neut % (Auto) 75.3 H, Lymph % (Auto) 8.9 L, [place] % (Auto) 13.2 H, Eos % (Auto) 1.2, Baso % (Auto) 0.7, Absolute Neuts (auto) 4.6, Absolute Lymphs (auto) 0.54 L, Nucleated RBC % 0, Differential Comment SCANNED Micro: Microbiology 08/18/22 07:35 Blood Culture (Wb) - Right Forearm Blood Culture - Preliminary No growth in 48 hours. 08/18/22 07:15 Blood Culture (Wb) - Left Forearm Blood Culture - Preliminary No growth in 48 hours. Rhythm Strip Rhythm Strip: A-fib Rate: 50 Ectopy: None Physical Exam Const alert, oriented x3, no apparent distress and well nourished; Negative for average body habitus or healthy appearing Constitutional Narrative: Middle-aged, morbidly obese, white male, sitting up in a chair at the bedside, cognition remains normal today, appears comfortable and nontoxic, no distress, family is at the bedside HEENT head/scalp atraumatic, moist oral mucous membranes and oropharynx normal Head and Scalp: normocephalic Resp normal respiratory effort, no retractions, no use of accessory muscles and clear to auscultation bilaterally Resp Narrative: Diffusely diminished however auscultation is inhibited by body habitus Auscultation: Negative for rales, rhonchi or wheezes Cardio regular rate, S1 normal heart sound, S2 normal heart sound, no murmurs, no rub, no gallops and no clicks Cardio Narrative: irregularly irregular rhythm GI normal to inspection, nondistended, normoactive bowel sounds and soft to palpation GI Narrative: No significant anasarca noted at this time Extremity Extremity Narrative: Trace bilateral lower extremity edema, chronic changes consistent with chronic venous stasis bilateral lower extremities, pedal pulses are 2+, right wrist erythema has resolved and pain with palpation has resolved, still some mild tenderness with active range of motion however much improved Skin no rashes or lesions noted, no jaundice, no petechiae and no mottling Skin Narrative: Right IJ dialysis catheter in place and is clean dry and intact Neuro oriented x3, moves all extremities and no focal motor deficits Speech: speech normal Psych affect normal Psych Narrative: Very pleasant, appropriately interactive Assessment & Plan Assessment/Plan (1) Hyponatremia: (2) Hyperkalemia: (3) TRESA (acute kidney injury): (4) Gross hematuria: (5) Metabolic acidosis: (6) Anemia: (7) Gout: (8) Hyperphosphatemia: (9) Toxic metabolic encephalopathy: (10) Bradycardia: PLAN: Plan TRESA -Baseline renal function appears to be between 0.9 and 1.1 -Urine output continues to improve -Lab at discharge showed a serum creatinine of 1.48 which had improved from previous and trended down to 1.45 on 08/12/2022.--> Unfortunately he had a dramatic and precipitous rise in his serum creatinine from 08/12/2022 to 08/14/2022 at which time his serum creatinine was 3.42 and then lorenzo to 7.10 and another 48 hours. -Etiology is unclear--> initially felt to be related to diuresis however with the rate of rise being that dramatic and no obstruction being found other etiologies are being pursued at this time including immune mediated disease--> HARISH was unremarkable, c-ANCA is negative, p-ANCA is negative, p-ANCA antibody is negative, C4 complement is low at 7, C3 is normal still multiple labs pending however -Plan is to hold HD today and reevaluate renal function and urine output tomorrow -Retroperitoneal ultrasound is unremarkable for any identifiable cause -Possible need for renal biopsy will await final recommendation from nephrology -Continue to hold home diuretics and CHAPITO inhibitor -Continued Keyes for now -Nephrology is following-appreciate input Hyperkalemia/hyperphosphatemia/hyponatremia -Resolved -Continue phosphate binder Gout-right wrist -Resolving -Patient has had history of gout -Continue home allopurinol -Continue prednisone 40 mg daily x5 days--> day 4 of 5--> may need to extend depending on clinical response -Continue to monitor clinically Gross hematuria -Resolved -Repeat UA once stabilized for microscopic hematuria Anemia -Stable -Patient is anticoagulated and Coumadin is on hold for possible renal biopsy in the near future -Repeat lab in a.m. Seasonal allergies -Continue home therapy DM-2 with hyperglycemia -Blood sugars are well controlled despite steroid use -Continue home basal insulin -Continue lispro 10 units 3 times daily -Continue SSI -Accu-Cheks as ordered -Hold home oral agents Chronic HFpEF -Systolic function is normal and echocardiogram however he has had right-sided ventricular systolic pressures at 50 mmHg showing evidence of pulmonary hypertension which likely is can attributing to his right-sided heart failure -Diuretics are on hold secondary to the above -Currently compensated HTN/HPL -Continue beta-kostas -Blood pressure is trending up will increase hydralazine to 103 times daily -Hold home diltiazem -May be able to reinitiate tomorrow if heart rate and blood pressure allow -Continue home atorvastatin -Hold home lisinopril Chronic atrial fibrillation -Continue to monitor on telemetry -Hold home calcium channel kostas--> reevaluate tomorrow for reinitiation -Restart home beta-kostas -Hold home Coumadin with above ongoing issues MILAGRO -Continue nocturnal sleep apnea treatment with CPAP Hepatic steatosis -Recommend outpatient follow-up Morbid obesity -Recommend weight loss -Complicates treatment, prognosis, outcomes -BMI is 54.8 DVT prophylaxis -Repeat INR in a.m.--> 2.0 today -We will start heparin 3 times daily once INR is less than 2 for DVT prophylaxis as I do anticipate Coumadin needing to be held for some time in preparation for possible renal biopsy CODE STATUS Full code Family would like us to pursue transfer to [facility]. I have called [facility] ended waiting acceptance. Information has been given and imaging has been pushed. No current beds available and patient/family informed. Patient/family is aware that he may be able to discharge home prior to transfer. Charges/Coding Visit Charges Inpatient E&M: 59488 Subs Hosp L2
[2022-08-20] MEDS: dilTIAZem CD 240 MG Capsule PO (15:57)
--- NOTE | 2022-08-20 16:18 | EKG12_ITS ---
Test Reason : Blood Pressure : / mmHG Vent. Rate : 110 BPM Atrial Rate : 000 BPM P-R Int : 000 ms QRS Dur : 150 ms QT Int : 366 ms P-R-T Axes : 000 073 007 degrees QTc Int : 495 ms Atrial fibrillation with rapid ventricular response Right bundle branch block Septal infarct , age undetermined Abnormal ECG When compared with ECG of 17-AUG-2022 07:03, Vent. rate has increased BY 54 BPM Septal infarct is now Present Confirmed by YARELY GARCIA, GLORIA ([id number]), photo editor MEGHANN PERALTA ([id number]) on 08/21/2022 8:43:47 AM Referred By: LORENZO Confirmed By:GLORIA PRITCHETT MD
[2022-08-20 16:49] LABS: Troponin-I HS 12 pg/mL (3.0-78.0)
[2022-08-20] MEDS: Mag Hydrox/Al Hydrox/Simeth 30 ML UDC PO (17:24)
[2022-08-20 19:23] LABS: Troponin-I HS 13 pg/mL (3.0-78.0)
[2022-08-20 22:50] LABS: Troponin-I HS 14 pg/mL (3.0-78.0)
[2022-08-20] MEDS: MELATONIN 10 MG TABLET PO (22:50)
[2022-08-20] MEDS: Acetaminophen 325 MG Tablet 650 MG PO (22:51)
[2022-08-20] MEDS: Montelukast 10 MG Tablet PO (22:51)
[2022-08-20] MEDS: Atorvastatin Calcium 10 MG Tablet PO (22:51)
[2022-08-20] MEDS: Loratadine 10 MG Tablet 5 MG PO (22:51)
[2022-08-21] VITALS (12 sets, daily range): BP systolic 120–185; BP diastolic 48–75; PULSE 63–98; RESP 16–18; TEMP 36.3–36.6; O2SAT 94–98; BMI 54.9
[2022-08-21 06:37] LABS: Absolute Lymphocyte Count 0.69 X10^3/uL (0.83-4.51); Absolute Neutrophil Count 4.2 X10^3/uL (2.0-7.7); Basophil# 0.03 X10^3/uL; Basophil% 0.5 % (0-1); Eosinophils% 1.8 % (0-5); Hematocrit 34.6 % (40-54); Hemoglobin 10.7 g/dL (13.0-16.5); Lymphocyte # 0.69 X10^3/ul (0.83-4.51); Lymphocyte % 12.3 % (19-41); Mean Corp Hgb Conc 30.9 g/dL (32-36); Mean Corpuscular Hgb 25.1 pg (27.0-32.0); Mean Corpuscular Volume 81.2 fL (80-94); Mean Platelet Vol. 9.9 fl (6.2-12.0); Monocyte# 0.64 X10^3/uL; Monocyte% 11.4 % (0-10); NRBC Flagged by Analyzer 0 % (0-5); Neutrophil # 4.16 X10^3/uL (2.7-7.7); Neutrophil % 73.8 % (47-70); Platelet Count 237 K/mm3 (150-450); RBC Distribution Width CV 19.8 % (11.6-14.6); RBC Distribution Width SD 57.2 fl (35.1-43.9); Red Blood Count 4.26 M/mm3 (4.6-6.2); White Blood Count 5.6 K/mm3 (4.4-11.0)
[2022-08-21] MEDS: hydrALAZINE 50 MG Tablet 100 MG PO ×3 (06:43→22:55)
[2022-08-21 06:56] LABS: International Normalized Ratio 1.8
[2022-08-21 07:17] LABS: Albumin, Serum 3.1 g/dL (3.2-5.0); Anion Gap 7 (5-15); BUN 49 mg/dL (7-18); BUN/Creat Ratio 33.3 RATIO (10-20); Calcium,Total 9.2 mg/dL (8.5-10.1); Chloride 104 mmol/L (98-107); Creatinine, Serum 1.47 mg/dL (0.70-1.30); EST Glomerular Filtration Rate 53 mL/min (>60); Est Glom Filt Rate - Afr Amer 64 mL/min (>60); Estimated Creatinine Clearance 61.59 ml/min; Glucose 111 mg/dL (74-106); Phosphorus 2.6 mg/dL (2.5-4.9); Potassium 3.8 mmol/L (3.5-5.1); Sodium Level 139 mmol/L (136-145)
[2022-08-21] MEDS: SEVELAMER CARBONATE 800 MG TABLET PO (08:16)
[2022-08-21] MEDS: predniSONE 20 MG Tablet 40 MG PO (08:16)
[2022-08-21] MEDS: Allopurinol 300 MG Tablet PO (08:16)
[2022-08-21] MEDS: Metoprolol Tartrate 25 MG Tablet PO ×2 (08:17→22:56)
[2022-08-21] MEDS: FLUTICASONE/UMECLIDIN/VILANTER 1 EACH BLST.W.DEV INHALATION (08:18)
[2022-08-21] MEDS: dilTIAZem CD 240 MG Capsule PO (08:21)
[2022-08-21] MEDS: Acetaminophen 325 MG Tablet 650 MG PO ×2 (08:21→22:56)
--- NOTE | 2022-08-21 09:10 | DIALYSIS ---
Reviewed labs with Alma Lang CNP. Provider orders hold dialysis at this time.
--- NOTE | 2022-08-21 09:50 | PN.RENAL_ITS ---
Documented by User: DONYA Awad 08/21/22 10:03 Subjective Subjective Following for dialysis requiring TRESA Sitting in chair. No overnight events.Family at bedside. Objective Data Objective Data Vital Signs: Vital Signs Temp Pulse Resp BP Pulse Ox O2 Del Method O2 Flow Rate 97.5 F L 98 18 146/48 H 94 Nasal Cannula 2 08/21/22 08:12 08/21/22 08:17 08/21/22 08:12 08/21/22 08:17 08/21/22 09:22 08/21/22 09:22 08/21/22 09:22 Oxygen Flow Rate (L/min) 2 Oxygen Delivery Method Nasal Cannula Weight: 183.8 kg Body Mass Index (BMI) 54.9 Intake & Output: Intake and Output for Last 24 Hours 08/19/22 08/20/22 08/21/22 23:59 23:59 23:59 Intake Total 440 / 790 470 / 470 Output Total 2200 / 3075 2850 / 3250 975 / 975 Balance -1760 / -2285 -2380 / -2780 -975 / -975 Lab / Micro Data Result Diagrams: 08/21/22 05:55 08/21/22 05:55 Labs: Laboratory Results - last 24 hr 08/20/22 16:10: Troponin I High Sens 12 08/20/22 18:45: Troponin I High Sens 13 08/20/22 22:06: Troponin I High Sens 14 08/21/22 05:55: PT 21.0 H, INR 1.8 08/21/22 05:55: Sodium 139, Potassium 3.8, Chloride 104, Carbon Dioxide 28.0, Anion Gap 7, BUN 49 H, Creatinine 1.47 H, Estim Creat Clear Calc 61.59, Est GFR (MDRD) Af Amer 64, Est GFR (MDRD) Non-Af 53 L, BUN/Creatinine Ratio 33.3 H, Glucose 111 H, Calcium 9.2, Phosphorus 2.6, Albumin 3.1 L 08/21/22 05:55: WBC 5.6, RBC 4.26 L, Hgb 10.7 L, Hct 34.6 L, MCV 81.2, MCH 25.1 L, MCHC 30.9 L, RDW Std Deviation 57.2 H, RDW Coeff of Brina 19.8 H, Plt Count 237, MPV 9.9, Immature Gran % (Auto) 0.200, Neut % (Auto) 73.8 H, Lymph % (Auto) 12.3 L, [place] % (Auto) 11.4 H, Eos % (Auto) 1.8, Baso % (Auto) 0.5, Absolute Neuts (auto) 4.2, Absolute Lymphs (auto) 0.69 L, Nucleated RBC % 0 Micro: Microbiology 08/18/22 07:35 Blood Culture (Wb) - Right Forearm Blood Culture - Preliminary No growth in 48 hours. 08/18/22 07:15 Blood Culture (Wb) - Left Forearm Blood Culture - Preliminary No growth in 48 hours. Rhythm Strip Rhythm Strip: A-fib Rate: 50 Ectopy: None Physical Exam Narrative General: A&Ox3, no apparent distress HEENT: Normocephalic, atraumatic. Mucous membranes moist Heart: Normal S1, S2. No rubs, murmurs, or gallops. Lungs: Clear to auscultation anteriorly. Abdomen: Obese, normal bowel sounds, soft, nontender Extremities: 1+ edema of the lower extremities bilaterally. right IJ non-tunneled HD catheter dressing C/D/I Indwelling Keyes catheter with clear yellow urine in bag Assessment & Plan Assessment/Plan (1) TRESA (acute kidney injury): (2) Hyperkalemia: (3) Hyponatremia: PLAN: Plan Impression/Plan: The patient is a 57-year-old man with past history of type 2 diabetes mellitus, hypertension, atrial fibrillation, MILAGRO, morbid obesity, COPD, and hyperlipidemia. The patient was admitted to the hospital on 08/16/2022 with acute kidney injury, oliguria and hyperkalemia. Acute kidney injury. Baseline serum creatinine had been around 1.4 to 1.5 mg/dL late July 2022 when admitted for heart failure. Prior to admission for heart failure exacerbation in July, serum creatinine had been around 0.9 to 1.1 mg/dL. Suspect serum creatinine 1.4 to 1.5 mg/dL is close to his actual baseline renal function as he was quite volume overloaded prior to admission in July 2022. Reviewed this with patient and his brother. Discussed importance of good blood sugar control, blood pressure control, weight loss, and avoiding nephrotoxic agents (NSAIDs) so to help preserve kidney function. Serum creatinine increased from 1.45 mg/dL on 08/12/2022 up to 8.28 mg/dL 08/17. We are in the process of working the patient up for the cause of acute kidney injury. Serologies thus far: P-ANCA, c-ANCA, HARISH negative, C3 complement normal at 86. C4 complement low at 7. If serologies suggestive of antibody mediated process or vasculitis, the patient will need a kidney biopsy. The patient did have bacteremia in July which can predispose antibody mediated GN. He also has a family history of ANCA vasculitis. However, there is no recent hemoptysis or upper or lower respiratory tract infection. No evidence of urinary tract obstruction on renal ultrasound from 08/17/2022. Prior to this hospitalization patient had been taking lasix 80mg (on hold) and lisinopril 5mg daily Patient was started on CRRT 08/17, had dialysis on 08/18 and 08/19. Last HD 08/19. Serum creatinine 1.60 yesterday and today his creatinine improved 1.47 mg/dL. No acute indication for [employer]CIAL [employer] today and renal function improving without needing dialysis. Urine output is picking up, so far 1L output today. We will have non- tunneled temporary HD catheter and Keyes catheter removed today. Hyperkalemia. Hyperkalemia was likely due to TRESA on CKD along with concurrent use of CHAPITO inh ibitor prior to admission. Patient was refractory to medical treatment for hyperkalemia. His potassium level lorenzo to 6.6 mmol/L on 08/17/2022 despite SPS and temporizing measures. Therefore, the patient was started on dialysis on 08/17/2022. Potassium level is stable today at 3.8 mmol/L. Hyponatremia. Prior hyponatremia was due to oliguric TRESA. Serum sodium was as low as 122 mmol/L on 08/17/2022. Serum sodium has improved, currently 139 mmol/L. Hyperphosphatemia. Phosphorus was as high as 9.9 mg/dL, Started on phosphate binder. Phosphorus 2.6. We will stop binder. disposition; will arrange for hospital follow-up in [place] with Dr. Garcia Documented by User: Dr. Becca Marino MD 08/21/22 14:37 Objective Data Lab / Micro Data Result Diagrams: 08/21/22 05:55 08/21/22 05:55 Assessment & Plan Assessment/Plan (1) TRESA (acute kidney injury): (2) Hyperkalemia: (3) Hyponatremia: PLAN: Plan Impression/Plan: The patient is a 57-year-old man with past history of type 2 diabetes mellitus, hypertension, atrial fibrillation, MILAGRO, morbid obesity, COPD, and hyperli pidemia. The patient was admitted to the hospital on 08/16/2022 with acute kidney injury, oliguria and hyperkalemia. Acute kidney injury. Baseline serum creatinine had been around 1.4 to 1.5 mg/dL late July 2022 when admitted for heart failure. Prior to admission for heart failure exacerbation in July, serum creatinine had been around 0.9 to 1.1 mg/dL. Suspect serum creatinine 1.4 to 1.5 mg/dL is close to his actual baseline renal function as he was quite volume overloaded prior to admission in July 2022. Reviewed this with patient and his brother. Discussed importance of good blood sugar control, blood pressure control, weight loss, and avoiding nephrotoxic agents (NSAIDs) so to help preserve kidney function. Serum creatinine increased from 1.45 mg/dL on 08/12/2022 up to 8.28 mg/dL 08/17. We are in the process of working the patient up for the cause of acute kidney injury. Serologies thus far: P-ANCA, c-ANCA, HARISH negative, C3 complement normal at 86. C4 complement low at 7. Serologies are not consistent with antibody mediated GN or vasculitides. Moreover, the patient appears to be recovering kidney function without specific treatment. The patient most likely has TRESA from ischemic ATN. Patient was started on CRRT 08/17, had dialysis on 08/18 and 08/19. Last HD 08/19. Serum creatinine 1.60 yesterday and today his creatinine improved 1.47 mg/dL. No acute indication for [employer] today and renal function improving without needing dialysis. Urine output is picking up, so far 1L output today. We will have non- tunneled temporary HD catheter and Keyes catheter removed today. Prior to this hospitalization patient had been taking furosemide 80mg (on hold) and lisinopril 5mg daily. We will leave patient off CHAPITO inhibitor and diuretic for another day. If renal function continues to improve, we can restart furosemide at 40mg/day tomorrow. He will need close follow-up as outpatient either with us in [place] or with aviation medicine specialist in [place] at [facility]. Hyperkalemia. Hyperkalemia was likely due to TRESA on CKD along with concurrent use of CHAPITO inhibitor prior to admission. Patient was refractory to medical treatment for hyperkalemia. His potassium level lorenzo to 6.6 mmol/L on 08/17/2022 despite SPS and temporizing measures. Therefore, the patient was started on dialysis on 08/17/2022. Hyperkalemia has not recurred despite discontinuing dialysis. Potassium level is stable today at 3.8 mmol/L. Hyponatremia. Prior hyponatremia was due to oliguric TRESA. Serum sodium was as low as 122 mmol/L on 08/17/2022. Serum sodium has improved, currently 139 mmol/L. Hyperphosphatemia. Phosphorus was as high as 9.9 mg/dL, Started on phosphate binder. Phosphorus 2.6. We will stop binder. Recheck serum calcium/phosphorus again tomorrow. disposition; will arrange for hospital follow-up in [place] with Dr. Garcia
[2022-08-21] MEDS: Insulin Glargine-YFGN 100 UNIT/ML Pen 50 UNIT SC (11:39)
[2022-08-21] MEDS: Insulin Lispro 100 UNIT/ML INSULN.PEN SC ×2 (11:39→15:34)
[2022-08-21] MEDS: Insulin Lispro 100 UNIT/ML INSULN.PEN 10 UNIT SC ×2 (11:40→15:34)
--- NOTE | 2022-08-21 12:40 | PCM.PN.HOSP ---
Reason for Visit Reason for Visit: Decreased urine output, feeling jittery Subjective Subjective No issues overnight. He did have some tachycardia that developed yesterday so we were able to restart his diltiazem. Urine output continues to be improved and serum creatinine is trending down. I discussed with nephrology and the plan is to remove his dialysis catheter today as we do not suspect he will need anymore dialysis. I did discuss with the patient he will likely be able to go home tomorrow. Family is at the bedside and everybody was very pleased with the way he is recovered. I further educated them on his heart failure and the type of heart failure he had and the reason for ongoing need for diuresis as well as his need for ongoing monitoring of his renal function. They voiced understanding and were appreciative of the explanation. Wrist is a feeling much better and close to baseline but not quite back to his norm. Objective Data Objective Data Vital Signs: Vital Signs Temp Pulse Resp BP Pulse Ox O2 Del Method O2 Flow Rate 97.5 F L 98 18 146/48 H 94 Nasal Cannula 2 08/21/22 08:12 08/21/22 08:17 08/21/22 08:12 08/21/22 08:17 08/21/22 09:22 08/21/22 09:22 08/21/22 09:22 Oxygen Flow Rate (L/min) 2 Oxygen Delivery Method Nasal Cannula Weight: 183.8 kg Body Mass Index (BMI) 54.9 Intake & Output: Intake and Output for Last 24 Hours 08/19/22 08/20/22 08/21/22 23:59 23:59 23:59 Intake Total 440 / 790 470 / 470 Output Total 2200 / 3075 2850 / 3250 1475 / 1475 Balance -1760 / -2285 -2380 / -2780 -1475 / -1475 Lab / Micro Data Result Diagrams: 08/21/22 05:55 08/21/22 05:55 Labs: Laboratory Results - last 24 hr 08/20/22 16:10: Troponin I High Sens 12 08/20/22 18:45: Troponin I High Sens 13 08/20/22 22:06: Troponin I High Sens 14 08/21/22 05:55: PT 21.0 H, INR 1.8 08/21/22 05:55: Sodium 139, Potassium 3.8, Chloride 104, Carbon Dioxide 28.0, Anion Gap 7, BUN 49 H, Creatinine 1.47 H, Estim Creat Clear Calc 61.59, Est GFR (MDRD) Af Amer 64, Est GFR (MDRD) Non-Af 53 L, BUN/Creatinine Ratio 33.3 H, Glucose 111 H, Calcium 9.2, Phosphorus 2.6, Albumin 3.1 L 08/21/22 05:55: WBC 5.6, RBC 4.26 L, Hgb 10.7 L, Hct 34.6 L, MCV 81.2, MCH 25.1 L, MCHC 30.9 L, RDW Std Deviation 57.2 H, RDW Coeff of Brina 19.8 H, Plt Count 237, MPV 9.9, Immature Gran % (Auto) 0.200, Neut % (Auto) 73.8 H, Lymph % (Auto) 12.3 L, Atlantic % (Auto) 11.4 H, Eos % (Auto) 1.8, Baso % (Auto) 0.5, Absolute Neuts (auto) 4.2, Absolute Lymphs (auto) 0.69 L, Nucleated RBC % 0 Micro: Microbiology 08/18/22 07:35 Blood Culture (Wb) - Right Forearm Blood Culture - Preliminary No growth in 48 hours. 08/18/22 07:15 Blood Culture (Wb) - Left Forearm Blood Culture - Preliminary No growth in 48 hours. Rhythm Strip Rhythm Strip: A-fib Rate: 50 Ectopy: None Physical Exam Const alert, oriented x3, no apparent distress and well nourished; Negative for average body habitus or healthy appearing Constitutional Narrative: Middle-aged, morbidly obese, white male, brother and mother at bedside, patient is sitting up in a chair and appears comfortable, on room air, nontoxic HEENT head/scalp atraumatic, moist oral mucous membranes and oropharynx normal HEENT Narrative: Mallampati 3-4, no thrush Head and Scalp: normocephalic Resp normal respiratory effort, no retractions, no use of accessory muscles and clear to auscultation bilaterally Resp Narrative: Diffusely diminished however auscultation is inhibited by body habitus Auscultation: Negative for rales, rhonchi or wheezes Cardio regular rate, S1 normal heart sound, S2 normal heart sound, no murmurs, no rub, no gallops and no clicks Cardio Narrative: irregularly irregular rhythm GI normal to inspection, nondistended, normoactive bowel sounds and soft to palpation GI Narrative: No significant anasarca noted at this time Extremity Extremity Narrative: Trace bilateral lower extremity edema, chronic changes consistent with chronic venous stasis bilateral lower extremities, pedal pulses are 2+, right wrist erythema has resolved and pain with palpation has resolved, still some mild tenderness with active range of motion however much improved Skin no rashes or lesions noted, no jaundice, no petechiae and no mottling Skin Narrative: Right IJ dialysis catheter in place and is clean dry and intact Neuro oriented x3, moves all extremities and no focal motor deficits Speech: speech normal Psych affect normal Psych Narrative: Very pleasant, appropriately interactive Assessment & Plan Assessment/Plan (1) Hyponatremia: (2) Hyperkalemia: (3) TRESA (acute kidney injury): (4) Gross hematuria: (5) Metabolic acidosis: (6) Anemia: (7) Gout: (8) Hyperphosphatemia: (9) Toxic metabolic encephalopathy: (10) Bradycardia: PLAN: Plan TRESA -Baseline renal function appears to be between 0.9 and 1.1 -Urine output was greater than 2 L yesterday -Lab at discharge showed a serum creatinine of 1.48 which had improved from previous and trended down to 1.45 on 08/12/2022.--> Unfortunately he had a dramatic and precipitous rise in his serum creatinine from 08/12/2022 to 08/14/2022 at which time his serum creatinine was 3.42 and then lorenzo to 7.10 and another 48 hours. -Autoimmune work-up is negative thus far -Renal function has seemingly recovered -Discontinue dialysis catheter per discussion with nephrology -Continue to hold home diuretics and CHAPITO inhibitor--> and will discuss with nephrology prior to discharge on what medications they would like him to be on -Discontinue Keyes -Nephrology is following-appreciate input Gout-right wrist -Resolving -Patient has had history of gout -Continue home allopurinol -Continue prednisone 40 mg daily x5 days--> day 5 of 5--> may need to extend depending on clinical response however thus far seems to be improving adequately -Continue to monitor clinically Anemia -Stable -Patient is anticoagulated and Coumadin is on hold for possible renal biopsy in the near future -Repeat lab in a.m. Seasonal allergies -Continue home therapy DM-2 with hyperglycemia -Blood sugars are well controlled despite steroid use -Continue home basal insulin -Continue lispro 10 units 3 times daily -Continue SSI -Accu-Cheks as ordered -Hold home oral agents Chronic HFpEF -Systolic function is normal and echocardiogram however he has had right-sided ventricular systolic pressures at 50 mmHg showing evidence of pulmonary hypertension which likely is can attributing to his right-sided heart failure -Diuretics are on hold secondary to the above -Currently compensated HTN/HPL -Continue beta-kostas -Restarted diltiazem yesterday we will continue -Continue hydralazine 100 mg 3 times daily with CHAPITO inhibitor on hold for the above -Continue home atorvastatin -Hold home lisinopril Chronic atrial fibrillation -Continue beta-kostas and calcium channel kostas which was initiated yesterday when he developed RVR -Restart Coumadin MILAGRO -Continue nocturnal sleep apnea treatment with CPAP Hepatic steatosis -Recommend outpatient follow-up Morbid obesity -Recommend weight loss -Complicates treatment, prognosis, outcomes -BMI is 54.8 DVT prophylaxis -Repeat INR in a.m.--> 1.8 today -Start heparin 5000 units SQ 3 times daily -Restarting Coumadin today CODE STATUS Full code Disposition: -Probable discharge tomorrow as long as patient remains stable Charges/Coding Visit Charges Inpatient E&M: 33416 Subs Hosp L2
[2022-08-21] MEDS: Heparin Injection (Vial) 5,000 UNIT/ML VIAL 5000 UNIT SC ×2 (14:32→22:56)
[2022-08-21] MEDS: MELATONIN 10 MG TABLET PO (22:54)
[2022-08-21] MEDS: Loratadine 10 MG Tablet 5 MG PO (22:55)
[2022-08-21] MEDS: Montelukast 10 MG Tablet PO (22:56)
[2022-08-21] MEDS: Atorvastatin Calcium 10 MG Tablet PO (22:56)
[2022-08-22] VITALS (7 sets, daily range): BP systolic 126–135; BP diastolic 57–80; PULSE 67–93; RESP 14–18; TEMP 36.6–36.9; O2SAT 92–98; BMI 54.6
[2022-08-22] MEDS: Heparin Injection (Vial) 5,000 UNIT/ML VIAL 5000 UNIT SC (06:58)
[2022-08-22] MEDS: hydrALAZINE 50 MG Tablet 100 MG PO (06:58)
[2022-08-22] MEDS: Acetaminophen 325 MG Tablet 650 MG PO (08:22)
[2022-08-22] MEDS: Insulin Lispro 100 UNIT/ML INSULN.PEN 10 UNIT SC (08:23)
[2022-08-22] MEDS: predniSONE 20 MG Tablet 40 MG PO (08:24)
[2022-08-22] MEDS: dilTIAZem CD 240 MG Capsule PO (08:24)
[2022-08-22] MEDS: Allopurinol 300 MG Tablet PO (08:24)
[2022-08-22] MEDS: Insulin Glargine-YFGN 100 UNIT/ML Pen 50 UNIT SC (08:24)
[2022-08-22] MEDS: Metoprolol Tartrate 25 MG Tablet PO (08:25)
[2022-08-22] MEDS: FLUTICASONE/UMECLIDIN/VILANTER 1 EACH BLST.W.DEV INHALATION (08:25)
[2022-08-22 08:34] LABS: Albumin, Serum 3.3 g/dL (3.2-5.0); BUN 48 mg/dL (7-18); BUN/Creat Ratio 33.3 RATIO (10-20); Calcium,Total 9.4 mg/dL (8.5-10.1); Chloride 106 mmol/L (98-107); Creatinine, Serum 1.44 mg/dL (0.70-1.30); EST Glomerular Filtration Rate 54 mL/min (>60); Est Glom Filt Rate - Afr Amer 65 mL/min (>60); Estimated Creatinine Clearance 62.87 ml/min; Glucose 112 mg/dL (74-106); Phosphorus 3.3 mg/dL (2.5-4.9); Potassium 3.8 mmol/L (3.5-5.1); Sodium Level 141 mmol/L (136-145)
[2022-08-22 08:50] LABS: Bedside Glucose 116 mg/dL (74-106)
[2022-08-22 09:06] LABS: International Normalized Ratio 1.8
--- NOTE | 2022-08-22 10:54 | PCM.DC.SUM ---
Providers Date of Admission: 08/16/22 Date of Discharge: 08/22/22 Primary Care Physician: Dr. Al Mondragon MD Consultations 08/16/22 12:54 Consult: Nephrology Routine Consulting Provider: Becca Marino Reason for Consult: TRESA EMERGENT Consult: No Notified: Yes Date Notified: 08/16/22 Time Notified: 13:49 Method of Notification: Verbal 08/17/22 06:38 Consult: Urology Routine Consulting Provider: Brandon Lucio Reason for Consult: Urinary retention, hematuria, 3-way placed. EMERGENT Consult: No Notified: Yes Date Notified: 08/17/22 Time Notified: 06:38 Method of Notification: Text Reason For Visit: TRESA Diagnosis Discharge Diagnosis (1) TRESA (acute kidney injury): Status: Acute Code(s): N17.9 - Acute kidney failure, unspecified (2) Hyperkalemia: Status: Resolved Code(s): E87.5 - Hyperkalemia (3) Hyponatremia: Status: Acute Code(s): E87.1 - Hypo-osmolality and hyponatremia Medications at Discharge Home Medications atorvastatin 10 mg tablet 10 mg PO QHS cholesterol 01/29/15 betaxolol 10 mg tablet 10 mg PO DAILY BP 03/03/17 metformin 1,000 mg tablet 1,000 mg PO BID diabetes 03/03/17 albuterol sulfate 90 mcg/actuation aerosol inhaler (ProAir HFA) 2 puff inhalation Q4H PRN shortness of breath or wheezing 12/19/18 fluticasone propionate 50 mcg/actuation nasal spray,suspension 2 spray NASAL DAILY PRN Allergies 03/14/19 gabapentin 300 mg capsule 300 mg PO TID nerve pain 06/04/19 glimepiride 4 mg tablet 4 mg PO DAILY diabetes 06/04/19 warfarin 1 mg tablet 10 mg PO DINNER 08/28/20 fluticasone fur. 200 mcg-umeclid 62.5 mcg-vilant 25 mcg inhalat.powder (Trelegy Ellipta) 1 inh inhalation DAILY #60 ea 01/07/22 montelukast 10 mg tablet 10 mg PO QHS allergies #30 tabs 01/26/22 diltiazem HCl 240 mg capsule,24 hr,extended release 240 mg PO DAILY heart #30 caps 04/29/22 allopurinol 300 mg tablet 300 mg PO QHS GOUT 07/28/22 insulin lispro 100 unit/mL subcutaneous pen (Humalog KwikPen (U-100) Insulin) 10 unit subcut TIDCM DM 07/28/22 triamcinolone acetonide 0.1 % topical cream 1 applic topical BID RASH 07/28/22 cetirizine 10 mg tablet 10 mg PO QHS allergies 08/02/22 hydralazine 50 mg tablet 100 mg PO TID #90 tabs 08/22/22 Hospital Course Procedures Central line placement (Right IJ dialysis catheter), Dialysis and - (Renal ultrasound/chest x-ray/CT spine/CT brain/right wrist and hand x-rays) Summary of Care Provided Minutes Spent on Discharge: 42 Hospital Course: Mr. Ruiz is a 57-year-old white male who presented to the emergency department at [facility] on 08/16/2022 with decreased urine output and a jittery feeling. The patient had a recent admission here from 07/28/2022 through 08/06/2022 for acute decompensated right-sided heart failure. The patient had previous echocardiogram that showed pulmonary artery hypertension with a right ventricular systolic pressure of 49 mmHg. He had significant volume overload and was diuresed with IV Lasix on a drip until he had a slight creatinine bump and then was transition back to his normal oral Lasix 80 mg p.o. twice daily and metolazone 2.5 mg daily was added. On discharge the patient was instructed to restrict his fluid intake which he was trying to be compliant with at home. Does not sound like he was weighing himself on a regular basis. On the day of discharge and serum creatinine was 1.48. A repeat BMP that was obtained on 08/12/2022 showed a serum creatinine of 1.45. Repeat serum creatinine was done 2 days later by his primary care physician which showed a serum creatinine jumped to 3.42. He was instructed to follow-up in the emergency department when he had decreased urine output and a jittery sensation. At the time of presentation here he was found to have a serum creatinine of 7.1. His kidney function continued to worsen. He had significant hyperkalemia and developed a metabolic acidosis. Despite trying to manage his hyperkalemia with Kayexalate and temporizing measures to achieve extracellular to intracellular shift of potassium his potassium continue to rise. This was with ongoing fluid resuscitation. We did feel that his initial creatinine jump was related to over dehydration however he reported family history of Meena's and he does have some microscopic hematuria previously. On admission he was also found to have gross hematuria after Keyes catheter was placed. Urology was consulted and they suspect this was related to traumatic Keyes placement on Coumadin and three-way irrigation was maintained until his urine cleared. Unfortunately, the patient did require temporary dialysis as he was bradycardic, hypotensive, and had worsening metabolic acidosis with hyperkalemia. We transferred him to the ICU with his ongoing issues and a dialysis catheter was placed in the right IJ on 08/17/2022. CVVHD was initiated at that point and continued that evening and again on 08/18/2022. With the initiation of dialysis his acidosis corrected, potassium resolved, heart rate improved and blood pressure normalized. He required pressors for a very brief time when dialysis was initiated. He was able to be transitioned to intermittent hemodialysis on 08/19/2022. Autoimmune serology was sent and has since been resulted all of which is negative so concern for immune mediated disease is low at this time. Renal ultrasound was performed and showed no evidence of obstruction or renal abnormality. His kidney function started to pickling grader with increased urine output and his serum creatinine trended slowly back down to baseline and was 1.44 on the day of discharge. We were able to discontinue his hemodialysis catheter on 08/21/2022. His Coumadin was held during his stay in case of need of a renal biopsy and with placement of his dialysis catheter. He did get fresh frozen plasma prior to his dialysis catheter placement as well. His lisinopril was held throughout his hospitalization due to his kidney disease. We did hold this at the time of discharge and transition to him hydralazine 100 mg 3 times daily. A prescription for this was sent to the local pharmacy prior to discharge. We also decreased his Lasix dose at home from 80 mg twice daily to 40 mg daily for now. I have instructed him to restrict his fluid intake to no more than 2 L daily. 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 He will need a repeat BMP to be ordered by nephrology within the next week and is to follow-up with nephrology in the next 2 weeks. I was told by the school lunch monitor that they will call him early next week to set up an appointment and to order a basic metabolic profile. He is also to follow-up with his primary care physician within the next week. No other medication changes were made. INR was 1.8 at the time of discharge and I have instructed him to obtain an INR on Wednesday as an outpatient so recommendations can be made with regards to his ongoing anticoagulation for his A-fib. He was discharged home in stable condition on 08/22/2022. Discharge diagnoses: TRESA-resolved Gout-resolved Anemia-chronic Seasonal allergies DM-2 Chronic HFpEF secondary to right-sided heart failure with a right ventricular systolic pressure of 50 Hypertension Hyperlipidemia Chronic atrial fibrillation MILAGRO Morbid obesity Hepatic steatosis Physical Exam Const alert, oriented x3, no apparent distress and well nourished; Negative for average body habitus or healthy appearing Constitutional Narrative: Middle-aged, morbidly obese, white male, family and friends at bedside, patient is sitting up in a chair and appears comfortable, on room air, nontoxic General Appearance: cooperative, comfortable, well kempt and well developed Orientation / Consciousness: awake, oriented to person, oriented to place and oriented to time Exam Limitations: no limitations Nutritional Appearance: morbidly obese HEENT normocephalic, head/scalp atraumatic, hearing grossly normal bilaterally, moist oral mucous membranes and oropharynx normal HEENT Narrative: Mallampati 3-4, no thrush Eyes PERRL, EOMs intact bilaterally and conjunctivae normal Eyes Narrative: No scleral icterus Neck no lymphadenopathy, supple and no JVD Neck Narrative: Tenderness over right neck where dialysis catheter has been removed from yesterday, slight ecchymosis that appears to be well-healing Resp normal respiratory effort, no retractions, no use of accessory muscles and clear to auscultation bilaterally Resp Narrative: Diffusely diminished however auscultation is inhibited by body habitus Auscultation: Negative for rales, rhonchi or wheezes Cardio regular rate, S1 normal heart sound, S2 normal heart sound, no murmurs, no rub, no gallops and no clicks Cardio Narrative: irregularly irregular rhythm GI normal to inspection, nondistended, normoactive bowel sounds and soft to palpation GI Narrative: No anasarca Extremity Extremity Narrative: Trace bilateral lower extremity edema, compression hose in place, pedal pulses are 2+, r right wrist pain and erythema is resolved, no cyanosis or clubbing Skin no rashes or lesions noted, skin turgor normal, no jaundice, no petechiae and no mottling Neuro oriented x3, CN's II-XII intact bilaterally, moves all extremities and no focal motor deficits Neuro Narrative: No myoclonic jerking noted at the time of my exam Sensorium / Orientation: awake, alert, oriented to person, oriented to place and oriented to time Speech: speech normal Psych affect normal Psych Narrative: Very pleasant, appropriately interactive Weight / BMI Weight Weight: 182.7 kg Body Mass Index (BMI) 54.6 ABG / Lab / Microbiology Data Result Diagrams: 08/21/22 05:55 08/22/22 07:20 Laboratory: Laboratory Results - last 24 hr 08/17/22 13:45: RDA-1 Antibody Not Reportable, SS-A/Ro IgG Antibody Not Reportable, SS-B/La IgG Antibody Not Reportable, Sm (Posey) Antibody Not Reportable, CASING CREW PUSHER Antibody Not Reportable, Scl-70 Scleroderma Ab Not Reportable, Double Strand DNA Ab Not Reportable, Centromere B Antibody Not Reportable 08/22/22 07:20: PT 21.0 H, INR 1.8 08/22/22 07:20: Sodium 141, Potassium 3.8, Chloride 106, Carbon Dioxide 27.0, BUN 48 H, Creatinine 1.44 H, Estim Creat Clear Calc 62.87, Est GFR (MDRD) Af Amer 65, Est GFR (MDRD) Non-Af 54 L, BUN/Creatinine Ratio 33.3 H, Glucose 112 H, Calcium 9.4, Phosphorus 3.3, Albumin 3.3 08/22/22 08:19: POC Glucose 116 H Microbiology: Microbiology 08/18/22 07:35 Blood Culture (Wb) - Right Forearm Blood Culture - Preliminary No growth in 48 hours. 08/18/22 07:15 Blood Culture (Wb) - Left Forearm Blood Culture - Preliminary No growth in 48 hours. D/C Instructions Discharge Diet: Low fat / Low cholesterol (Fluid restrict to about 2 L daily) and 1800 Calorie Control Diet Discharge Activity: Return to Normal Activity Meaningful Use Info Meaningful Use Diagnoses (Choose all that apply): None applicable Discharge Plan Admission Admit Date/Time: 08/16/22 11:45 Primary Reason for Your Visit: jittery feeling and decreased urine output Attending Provider: Estee Alexandre Primary Care Provider: Al Mondragon Consulting Providers: Derek Espinal ; Becca Marino ; Brandon Lucio Instructions Additional Instructions / Restrictions: 1. We have decreased your Lasix from 80 mg twice daily to 40 mg daily for now -Okay to take 1/2 tablet of your remaining Lasix daily 2. We will stop metolazone at this time 3. Fluid restrict to approximately 2 L daily 4. Please weigh yourself daily and if you gain more than 3 pounds or have a considerable weight loss in 24 hours or decreased urine output that is markedly different please call the school lunch monitor office (Dr. Garcia-number noted below) 5. You will need a basic metabolic profile in the next week -If you do not hear from the kidney doctors office on Wednesday or Wednesday with an order for this please call and ask them to order a basic metabolic profile 6. Please follow-up with your kidney doctor as directed-they should call you for an appointment to be seen within the next 2 weeks 7. We held your Coumadin while you are in the hospital and it was restarted on 08/21/2022. Please follow-up with the doctor that manages your INR on Wednesday to have a repeat INR drawn Discharge Orders/Prescriptions Prescriptions: New hydralazine 50 mg Tablet 100 mg PO TID Qty: 90 1RF Continued albuterol sulfate [ProAir HFA] 90 mcg/actuation HFA aerosol inhaler 2 puff INHALATION Q4H PRN (Reason: shortness of breath or wheezing) atorvastatin 10 MG tablet 10 mg PO QHS Label Comments: cholesterol metformin 1,000 MG tablet 1,000 mg PO BID betaxolol 10 MG tablet 10 mg PO DAILY fluticasone propionate 1 SPRAY spray,suspension 2 spray NASAL DAILY PRN (Reason: Allergies) glimepiride 4 MG tablet 4 mg PO DAILY gabapentin 300 MG capsule 300 mg PO TID warfarin 1 mg tablet 10 mg PO DINNER triamcinolone acetonide 0.1 % Cream 1 applic TOPICAL BID allopurinol 300 mg tablet 300 mg PO QHS insulin lispro [Humalog KwikPen Insulin] 100 unit/mL insulin pen 10 unit SUBCUT TIDCM cetirizine 10 mg Tablet 10 mg PO QHS Trelegy Ellipta 200-62.5-25 mcg blister with device 1 inh INHALATION DAILY Qty: 60 6RF montelukast 10 mg tablet 10 mg PO QHS Qty: 30 6RF diltiazem HCl 240 mg capsule,extended release 24 hr 240 mg PO DAILY Qty: 30 11RF Discontinued furosemide 80 mg tablet 80 mg PO BID lisinopril 5 MG tablet 5 mg PO DAILY Label Comments: blood pressure metolazone 2.5 mg Tablet 2.5 mg PO DAILY Qty: 30 0RF Referrals / Follow Up: Al Mondragon MD [Primary Care Provider] - Within 1 Week Lesly Garcia MD [Med Staff - Consulting] - Within 2 Weeks (Their office should call you for an appointment to be seen if not called by next Wednesday call office to set up appointment) Disposition Disposition (needs filled in before D/C Order can be placed): Home, Self Care Charges/Coding Visit Charges Inpatient E&M: 70340 Disch Hosp >30min
== END 2022-08-22 13:40 | disposition home or self-care (01) | DRG 469 ==
LOC: ED 11:16 → PCU 13:37 → ICU 08-18 10:58 → PCU 08-19 16:44
PROVIDERS: Family Medicine; Internal Medicine Nephrology; Nurse Practitioner Adult Health; Admitting Provider Internal Medicine; Emergency Provider Emergency Medicine; PCP Family Medicine; Visit Provider Internal Medicine
DX: N17.9 Acute kidney failure, unspecified (principal); G93.41 Metabolic encephalopathy; R78.81 Bacteremia; I27.29 Other secondary pulmonary hypertension; E87.20 Acidosis, unspecified; E83.39 Other disorders of phosphorus metabolism; E87.1 Hypo-osmolality and hyponatremia; I48.20 Chronic atrial fibrillation, unspecified; G25.3 Myoclonus; I50.32 Chronic diastolic (congestive) heart failure; E11.40 Type 2 diabetes mellitus with diabetic neuropathy, unspecified; Z68.43 Body mass index [BMI] 50.0-59.9, adult; J44.9 Chronic obstructive pulmonary disease, unspecified; Z79.4 Long term (current) use of insulin; E66.01 Morbid (severe) obesity due to excess calories; E11.22 Type 2 diabetes mellitus with diabetic chronic kidney disease; Z99.2 Dependence on renal dialysis; I13.0 Hypertensive heart and chronic kidney disease with heart failure and stage 1 through stage 4 chronic kidney disease, or unspecified chronic kidney disease; E11.65 Type 2 diabetes mellitus with hyperglycemia; N17.0 Acute kidney failure with tubular necrosis; E86.0 Dehydration; E78.5 Hyperlipidemia, unspecified; K76.0 Fatty (change of) liver, not elsewhere classified; G47.33 Obstructive sleep apnea (adult) (pediatric); E78.00 Pure hypercholesterolemia, unspecified; D64.9 Anemia, unspecified; N18.9 Chronic kidney disease, unspecified; M10.031 Idiopathic gout, right wrist; E87.5 Hyperkalemia; J30.2 Other seasonal allergic rhinitis; Z79.51 Long term (current) use of inhaled steroids; Z87.891 Personal history of nicotine dependence; Z79.01 Long term (current) use of anticoagulants; R31.0 Gross hematuria; Z79.52 Long term (current) use of systemic steroids
CPT/HCPCS: 36415; 36600; 70450; 71045; 71046; 72125; 73110; 73130; 76770; 80048; 80053; 80069; 81001; 82550; 82803; 82962; 83735; 83880; 84100; 84300; 84443; 84484; 84540; 84550; 85025; 85027; 85610; 85652; 85730; 86038; 86140; 86160; 86225; 86235; 86256; 86706; 86900; 86901; 87040; 87340; 90937; 90947; 93005; 94762; 97116; 97162; 97166; 97530; 97535; 99252; 99283; J7030; J7040; J7050; P9017; A4216; C1752; G0257; G0463; J0612; J2405

== ENCOUNTER → 2022-08-28 | Outpatient (CLI) | payer MEDICAID, SELFPAY ==
[2022-08-28 10:30] LABS: Bacteria 0 SEEN /hpf (None Seen); Mucous, Urine 0 SEEN /hpf (<or=2+); Red Blood Cells-Urine 0 SEEN /hpf (0-5)
[2022-08-28 12:29] LABS: Color, Urine Yellow (Yellow); Glucose, Dipstick Normal (Normal); Ketone-Dipstick Negative (Negative); Leukocyte Esterase-Dipstick 25 /ul (Negative); Nitrite-Dipstick Negative (Negative); Occult Blood-Urine Negative /ul (Negative); Protein-Dipstick 30 mg/dl (Negative); Specific Gravity, Urine 1.015 (1.002-1.030); Urine Bilirubin Dipstick Negative (Negative); Urine Clarity Sl. Cloudy (Clear); Urine Urobilinogen Normal (Normal)
[2022-08-28 12:42] LABS: Squamous Epithelial Cells - UA 0-5 SEEN /hpf (0-5); White Blood Cells 0-5 SEEN /hpf (0-5)
[2022-08-28 12:46] LABS: Protein, Urine (Random) 33.9 mg/dL (<11.9); Protein:Creat Ratio 389 mg/g CRE (0-200)
[2022-08-28 15:27] LABS: Anion Gap 8 (5-15); BUN 21 mg/dL (7-18); BUN/Creat Ratio 18.6 RATIO (10-20); Calcium,Total 8.8 mg/dL (8.5-10.1); Chloride 103 mmol/L (98-107); Creatinine, Serum 1.13 mg/dL (0.70-1.30); EST Glomerular Filtration Rate 71 mL/min (>60); Est Glom Filt Rate - Afr Amer 86 mL/min (>60); Glucose 138 mg/dL (74-106); Potassium 3.8 mmol/L (3.5-5.1); Sodium Level 136 mmol/L (136-145); Uric Acid 5.5 mg/dL (3.5-7.2)
== END | disposition home or self-care (01) ==
LOC: MFPLAB 10:28
PROVIDERS: PCP Family Medicine; Referring Provider Internal Medicine Nephrology; Visit Provider Internal Medicine Nephrology
DX: N17.9 Acute kidney failure, unspecified (principal)
CPT/HCPCS: 36415; 80048; 81001; 82570; 84156; 84550

== ENCOUNTER → 2022-09-16 | Outpatient (CLI) | payer MEDICAID, SELFPAY ==
[2022-09-16 19:39] LABS: Anion Gap 9 (5-15); BUN 18 mg/dL (7-18); BUN/Creat Ratio 20.2 RATIO (10-20); Calcium,Total 8.7 mg/dL (8.5-10.1); Chloride 103 mmol/L (98-107); Creatinine, Serum 0.89 mg/dL (0.70-1.30); EST Glomerular Filtration Rate 94 mL/min (>60); Est Glom Filt Rate - Afr Amer 113 mL/min (>60); Glucose 168 mg/dL (74-106); Potassium 3.4 mmol/L (3.5-5.1); Sodium Level 140 mmol/L (136-145)
== END | disposition home or self-care (01) ==
LOC: MFPLAB 13:47
PROVIDERS: PCP Family Medicine; Visit Provider Family Medicine
DX: I10 Essential (primary) hypertension (principal)
CPT/HCPCS: 36415; 80048

== ENCOUNTER → 2022-10-27 | Outpatient (CLI) | payer MEDICAID, SELFPAY ==
[2022-10-27 12:21] LABS: Hematocrit 38.5 % (40-54); Hemoglobin 11.2 g/dL (13.0-16.5); Mean Corp Hgb Conc 29.1 g/dL (32-36); Mean Corpuscular Hgb 24.5 pg (27.0-32.0); Mean Corpuscular Volume 84.2 fL (80-94); Mean Platelet Vol. 10.3 fl (6.2-12.0); Platelet Count 244 K/mm3 (150-450); RBC Distribution Width CV 16.9 % (11.6-14.6); Red Blood Count 4.57 M/mm3 (4.6-6.2); White Blood Count 5.5 K/mm3 (4.4-11.0)
[2022-10-27 12:52] LABS: BNP,B-Type NATRIURETIC PEPTIDE 61.8 pg/mL (0-100)
[2022-10-27 12:54] LABS: ALB/GLOB Ratio 0.8 RATIO (0.9-2.4); AST(SGOT) 19 U/L (15-37); Alanine Aminotransfer ALT/SGPT 17 U/L (16-61); Albumin, Serum 2.9 g/dL (3.2-5.0); Alkaline Phosphatase 58 U/L (45-117); Anion Gap 6 (5-15); BUN 15 mg/dL (7-18); BUN/Creat Ratio 19.1 RATIO (10-20); Calcium,Total 8.8 mg/dL (8.5-10.1); Chloride 103 mmol/L (98-107); Creatinine, Serum 0.78 mg/dL (0.70-1.30); EST Glomerular Filtration Rate 109 mL/min (>60); Est Glom Filt Rate - Afr Amer 132 mL/min (>60); Globulin 3.7 g/dL (2.2-4.2); Glucose 145 mg/dL (74-106); Potassium 3.2 mmol/L (3.5-5.1); Protein, Total 6.6 g/dL (6.4-8.2); Sodium Level 140 mmol/L (136-145); Thyroid Stim Hormone (TSH) 2.73 uIU/mL (0.358-3.74)
== END | disposition home or self-care (01) ==
LOC: MFPLAB 10:58
PROVIDERS: PCP Family Medicine; Visit Provider Family Medicine
DX: E11.40 Type 2 diabetes mellitus with diabetic neuropathy, unspecified (principal); I27.20 Pulmonary hypertension, unspecified; M79.89 Other specified soft tissue disorders
CPT/HCPCS: 36415; 80053; 83880; 84443; 85027

== ENCOUNTER → 2022-11-04 | Outpatient (CLI) | payer MEDICAID, SELFPAY | END | disposition home or self-care (01) | LOC: LABSPEC 12:42 | PROVIDERS: PCP Family Medicine; Referring Provider Family Medicine; Visit Provider Family Medicine | DX: R31.9 Hematuria, unspecified (principal) | CPT/HCPCS: 87086; 87088 ==

== ENCOUNTER → 2022-11-10 | Outpatient (CLI) | payer MEDICAID, SELFPAY ==
--- NOTE | 2022-11-10 07:57 | PCM.PR.HP ---
History of Present Illness General Arrival date:: 11/10/22 Arrival time:: 08:00 Date of Referral:: 11/02/22 Date of Evaluation: 11/10/22 Referring Physician: Dr. Reginaldo Kumar Primary Diagnosis: COPD, Chronic Daistolic HF History of Present Pulmonary Event mMRC Breathless Scale: When is the patient short of breath? Y/N Grade: Description of Breathlessness: 0 I only get breathless with strenuous exercise. 1 I get short of breath when hurrying on level ground or walking up a slight hill. 2 On level ground, I walk slower than people of the same age because of breathless, or have to stop for breath when walking at my own pace. Y 3 I stop for breath after walking 100 yards or after a few minutes on level ground. 4 I am too breathless to leave the house or I am breathless when dressing. Respiratory Problems: Yes Fatigue, Able to Speak in Full Sentences, Dizziness, Ankle Swelling, Hoarseness and Dyspnea with Activity; No Retain Secretions, Limited Range of Motion, Chest Pain, Wheezing, Panic, Dyspnea at Rest, Dyspnea Lying Down Flat or Cough with Secretions Medications Home Medications atorvastatin 10 mg tablet 10 mg PO QHS cholesterol 01/29/15 betaxolol 10 mg tablet 10 mg PO DAILY BP 03/03/17 metformin 1,000 mg tablet 1,000 mg PO BID diabetes 03/03/17 albuterol sulfate 90 mcg/actuation aerosol inhaler (ProAir HFA) 2 puff inhalation Q4H PRN shortness of breath or wheezing 12/19/18 fluticasone propionate 50 mcg/actuation nasal spray,suspension 2 spray NASAL DAILY PRN Allergies 03/14/19 gabapentin 300 mg capsule 300 mg PO TID nerve pain 06/04/19 warfarin 1 mg tablet 10 mg PO DINNER 08/28/20 diltiazem HCl 240 mg capsule,24 hr,extended release 240 mg PO DAILY heart #30 caps 04/29/22 triamcinolone acetonide 0.1 % topical cream 1 applic topical BID RASH 07/28/22 hydralazine 50 mg tablet 100 mg (2 x 50 mg) PO TID #90 tabs 08/22/22 fluticasone fur. 200 mcg-umeclid 62.5 mcg-vilant 25 mcg inhalat.powder (Trelegy Ellipta) 1 inh inhalation DAILY #60 ea 09/02/22 allopurinol 300 mg tablet 300 mg PO QHS GOUT 09/17/22 cetirizine 10 mg tablet 5 mg PO QHS allergies 09/17/22 omega-3 fatty acids 1,000 mg capsule 1,000 mg PO DAILY 09/17/22 montelukast 10 mg tablet 10 mg PO QHS allergies #30 tabs 09/18/22 furosemide 80 mg tablet 80 mg PO BID 10/28/22 Allergies Allergies adhesive tape Allergy (Verified 10/28/22 11:29) Rash codeine Allergy (Verified 10/28/22 11:29) rash levofloxacin [From Levaquin] Allergy (Verified 10/28/22 11:29) hives and swelling oxycodone Allergy (Verified 10/28/22 11:29) hives Secretions Thick:: No Thin:: No Sleep Disorder Evaluation Hx of Sleep Apnea: Yes Do you snore loudly (louder than talking or can be heard through closed doors)?: Yes Do you often feel tired/ fatigued/ sleepy during daytime?: Yes Has anyone observed you stop breathing during sleep?: Yes History of Hypertension (for STOP score): Yes STOP Results: Positive: Patient BiPAP Medical Utilization Medical Devices Do you use a peak flow meter at home?: No Do you use a spacer device with your inhalers?: Yes Medical Utilization Number of hospital visits in the last year?: 2 (Fluid retention - kidney failure) Number of emergency room visits in the last year?: 2 Do you see your physician on a regular schedule?: Yes How often?: José - 6 mo.; Giancarlo - 3 mo.; Han 6 mo. Advanced Directives Advanced Directives Power of [employer] Superintendent: No Living Will: No Advance Directives Information Provided: Yes Advance Directives on File: No DNR Order?:: No MOLST See MOLST form: No Past Medical History Covid-19 Screening Physicial Symptoms Fever: No Unexplained muscle aches: No Current respiratory symptoms: No Upper respiratory infections symptoms: No Gastro-intestinal symptoms: No Wtn-Ydmt-Ptakea symptoms: No Other Clinical Concerns Has tested positive for COVID-19 in last 30 days: No Date of testin11/10/22 (unvaccinated) Exposure Risk Had contact w/person w/symptoms or Covid-19 (+) last 14 days: No Has High Risk Exposures ID'd by Health dept/Inf Control team: No Pertinent Comorbidities 65 years or older:: No Lives in Assisted Living facility:: No Has a chronic lung disease or moderate to severe asthma:: Yes Has a serious heart condition:: Yes Immunocompromised:: No Severely obese (Body Mass Index of 40 or higher):: Yes Diabetic:: Yes Has chronic kidney disease undergoing dialysis:: Yes Has liver disease:: No Medical History Past Medical History (Reviewed 11/10/22 @ 08:05 by Taqueria Jo, [employer] SUPERVISOR, BALLISTICS TEACHER, BS) Anemia D64.9 Asthma J45.909 INHALER PRN BiPAP (biphasic positive airway pressure) dependence Z99.89 Cardiology follow-up encounter Z09 [facility], LAST VISIT 06/09/2021 Cellulitis of right leg L03.115 COPD (chronic obstructive pulmonary disease) J44.9 COPD exacerbation J44.1 Diabetes E11.9 Diastolic CHF, chronic I50.32 Essential (primary) hypertension I10 CONTROLLED ON MED Excessive bleeding R58 ON [place] Exogenous obesity E66.9 Former smoker Z87.891 QUIT 2018 Hematuria R31.9 High cholesterol E78.00 History of abdominal paracentesis Z98.890 History of atrial fibrillation Z86.79 History of echocardiogram Z92.89 03/03/2019 History of edema Z87.898 History of pain when walking Z87.898 NEUROPATHY History of stress test Z92.89 2012 Hoarseness R49.0 Hypercholesteremia E78.00 Insulin dependent diabetes mellitus Kidney stones N20.0 Leg cramps R25.2 Longstanding persistent atrial fibrillation I48.11 Lymphedema I89.0 Mild intermittent asthma J45.20 Morbid obesity due to excess calories E66.01 Neuropathy G62.9 Obstructive sleep apnea G47.33 [place] (obstructive sleep apnea) G47.33 BiPAP 25/21 cm of water Right bundle branch block (RBBB) I45.10 Sciatica M54.30 Seasonal allergies J30.2 Secondary pulmonary arterial hypertension I27.21 Shortness of breath R06.02 Shortness of breath on exertion R06.02 Sleep apnea G47.30 Super-super obese E66.9 Swelling of lower limb M79.89 Type 2 diabetes mellitus E11.9 Venous hypertension, chronic I87.309 Venous hypertension, chronic, with ulcer and inflammation I87.339 Venous insufficiency I87.2 Venous ulcer of right leg I83.019, L97.919 Vertigo R42 Wears glasses Z97.3 Surgical History Surgical History History of cardiac catheterization History of meatotomy of ureter Significant Family History Family History (Reviewed 11/10/22 @ 08:05 by Taqueria Jo, [employer]SEMBL[employer] SUPERVISOR, BALLISTICS TEACHER, BS) Mother Breast cancer Father Prostate cancer Current/ Previous Services Pulmonary Rehab:: Yes Comments Comments: Participated in Pulm Rehab previously here at [facility]. Social History Smoking History Smoking Status: Former smoker Alcohol Use Alcohol Usage: No Substance Abuse Hx Substance Use: No Occupation Occupation (List type of work in comments):: Retired (on disability) Hobbies, Recreation, Social Activities Hobbies: Sports (Fishing, Golfing, card playing) Recreational Activities: I am able to engage in a few activities Functioning ADL/IADL Current Ability Current Ability: Independent: Self-Care (e.g.,grooming, dressing, & bathing), Independent: Ambulation, Independent: Transfer and Independent: Household tasks (e.g., light meal prep, laundry, shopping) Pt Functioning Prior to Problem Prior Functioning: Self-Care (e.g.,grooming, dressing, & bathing): Independent, Ambulation: Independent, Transfer: Independent and Household tasks (e.g., light meal prep, laundry, shopping): Independent Social Environment Status Marital Status: Single Current Living Arrangements Living Environment:: Family Children Do any of your children live nearby?: No Safety Do you feel safe in your surroundings?: Yes Assistance Do you need any assistance at home?: Support stocking Review of Systems Review of Systems Review of Systems Respiratory: Reports SOB at Rest, SOB upon Exertion, Appetite, Normal, Dizziness/Lightheadedness, Fatigue and Sleep, Normal; Denies Cough, Hemoptysis, Pleuritic Pain, Sputum production, Wheezing, PVD or Sexual changes Pain Is Patient Pain Free?: No Pain Level: 0/10 Risk Factor Assessment Vital Signs Temperature: 98.6 F Pulse Rate: 68 Pulse Rhythm: Regular Respiratory Rate: 18 Pulse Ox: 90 Blood Pressure: 130/70 Diabetes Diabetic History: Type II and Medication Dependent (metformin 1,000 mg BID) Nutrition Referral for Diabetes: Yes Obesity Height: 6 ft Weight:: 376 lb 4.8 oz (DOWN 2.5 LBS FROM YESTERDAY) Weight in Pounds: 376.3 lbs Weight Source: Stated by Patient Body Mass Index (BMI): 51.0 Physical Activity Physical Inactivity: None Risk Stratification Risk Guidelines: Lowest Risk: Risk Factor for Smoking, Risk Factor for Dyslipidemia, Risk Factor for Diabetes and Risk Factor for Depression, Moderate Risk: Risk Factor for Diabetes, Risk Factor for Hypertension and Risk Factor for Sedentary Lifestyle and Highest Risk: Risk Factor for Obesity (bmi 50) and Risk Factor for Sedentary Lifestyle For Smoking Smoking Risk Guidelines For Dyslipidemia Dyslipidemia Risk Guidelines For Diabetes Mellitus Diabetes Risk Guidelines For Obesity/Overweight Obesity/Overweight Risk Guidelines For Hypertension Hypertension Risk Guidelines For Sedentary Lifestyle Sedentary Lifestyle Risk Guidelines For Depression Depression Risk Guidelines Motivation Motivation to Participate On a scale of 1 to 10, how prepared are you to commit to attending program?: 10 What do you see as barriers to successfully being able to complete the program?: FLUID RETENTION What do you see as the benefits of succesfully completing the program? In other words, what do you hope to get out of participating in the program?: HEALTH Are there issues you are dealing with that will interfere with completing the program?: Current problems with retaining fluid Do you have a spouse or signficant other, family or friends who will help support you to complete the program?: Yes
--- NOTE | 2022-11-10 07:57 | PCM.PR.TP ---
General Information2 General Information Admitting Diagnosis: COPD GOLD III; severe, lung nodule Secondary Diagnosis: Chronic Diastolic Heart Failure, Edema, HTN, HLD, morbid obesity Gold Classification:: GOLD 3: Severe Personal Learning Style/Barriers Personal Learning Style:: Audio/Visual and Written Barriers to Learning: Vision impaired Stage of change r/t lifestyle modifications: Prepared Educational Classes [place]: Living with Chronic Lung Disease: Initial Assessment, Breathing Retraining: Initial Assessment, Exercise: Initial Assessment, Energy Conservation: Initial Assessment and Oxygen therapy: Initial Assessment Education/Goals Individual Counseling: Initial Assessment: High Blood Pressure, Diabetes, Overweight/Obesity and Sedentary Lifestyle [place] Patient Goals: Increase muscle strength: Initial Assessment, Experience less dyspnea: Initial Assessment and Improve my quality of life: Initial Assessment Exercise - Initial Assessment Visit Date of Eval: 11/10/22 Session Number:: 0 (Pre-AZ evaluation) Problem/Goals Problems: Deconditioning and No regular exercise Goals:: Aerobic exercise 30-60 mins x 12 weeks [36 sessions] Physician Prescribed Exercise Modalities: Treadmill, NuStep and Lateral Inventory Audit Clerk Frequency (days/week): 3 Duration (Minutes):: 30-45 Intensity: Resting heart rate plus 20 to 30 beats/ minute Current METSs:: 2.0 Target HR:: 115 (THRR 100-115) Resting Blood Pressure: 130/70 Minimum SpO2 with exercise: 90 EKG Type: Persistent Atrial Fibrillation with rapid ventricular response (Han) Plan Plan and Plan to Review:: Benefits of exercise, Core components of exercise, How to measure dyspnea level, How to monitor dyspnea level, Exercise intensity, Exercise safety guideline, Home exercise guidelines and Mayte: 3-4/11-13 Nutrition/Wt Mgmt - Initial Visit Date of Eval: 11/10/22 Session Number:: 0 (Pre-AZ evaluation) Problems/Goals Problems: Overweight (Morbid Obese) Weight Management Knowledge Deficit Management of:: Overweight Admit Height:: 6 ft Admit Weight:: 376 lb 6.4 oz Admit BMI:: 51.0 Intervention Referral to dietitian:: Yes Will attend diet classes:: Yes Intervention/Plan: Instruct on ideal BMI & set weight loss goal w/patient, Assist pt to ID & incorporate diet changes for weight loss by S9, Refer to Structured Weight Loss program as appropriate and Encourage goal of using 250-300dcal per session for weight loss Plan Nutrition Plan: Yes: Review BMI or WC & identify target wt & strategies for wt control, Yes: Nutrition education class: (Nutrition & DMST), Yes: Weight control education class: (Why Weight (weight loss)) and Yes: Education re: Need for ongoing weight monitoring (Patient weighs daily @ home d/t CHF) Nutrition/Wt Mgmt - 30-Day Visit Session Number:: 0 (Pre-AZ evaluation) Weight Management Height: 6 ft Weight:: 376 lb 6.4 oz BMI: 51.0 Nutrition/Wt Mgmt - 60-Day Visit Session Number:: 0 (Pre-AZ evaluation) Weight Management Height: 6 ft Weight:: 376 lb 6.4 oz BMI: 51.0 Nutrition/Wt Mgmt - 90-Day Visit Session Number:: 0 (Pre-AZ evaluation) Weight Management Height: 6 ft Weight:: 376 lb 6.4 oz BMI: 51.0 Nutrition/Wt Mgmt - Final Visit Session Number:: 0 (Pre-AZ evaluation) Weight Management Height: 6 ft Weight:: 376 lb 6.4 oz BMI: 51.0 Psychosocial - Initial Assess Visit Date of Eval: 11/10/22 Session Number:: 0 (Pre-AZ evaluation) Problems/Goals History of Emotional Disorders: Depression Psychosocial Goals: 1. Patient is free from overwhelming symtoms of depression (or anxiety, 2. Identifies personal stressors & states the strategies for managing, 3. Identifies activities to decrease isolation and/or symptoms of, 4. Improved psychosocial coping skills., 5. Verbalizes coping strategies., 6. Adequate treatment of depression. and 7. Improved Q.O.L. Psychosocial Test Tool Used:: Pulmonary QOL and PHQ-9 Questionnaire Referral to Behavioral Health PS - Interventions: Yes: Attend Stress Management Classes and No: Referral to [facility] Intervention/Plan: See List Interventions/Plan:: Assess stressors,coping strategies & signs of derpression on admission, Instruct/assist pt to develop coping & personal stress Mgt strategies, Instruct patient to recognize signs & symptoms of depression and Instruct patient to recog Psychosocial - 30-Day Visit Session Number:: 0 (Pre-AZ evaluation) Problems/Goals History of Emotional Disorders: Depression Psychosocial Goals: 1. Patient is free from overwhelming symtoms of depression (or anxiety, 2. Identifies personal stressors & states the strategies for managing, 3. Identifies activities to decrease isolation and/or symptoms of, 4. Improved psychosocial coping skills., 5. Verbalizes coping strategies., 6. Adequate treatment of depression. and 7. Improved Q.O.L. Psychosocial Test Tool Used:: Pulmonary QOL and PHQ-9 Questionnaire Referral to [facility] PS - Interventions: Yes: Attend Stress Management Classes and No: Referral to [facility] Plan Interventions/Plan:: Assess stressors,coping strategies & signs of derpression on admission, Instruct/assist pt to develop coping & personal stress Mgt strategies, Instruct patient to recognize signs & symptoms of depression and Instruct patient to recog Psychosocial - 60-Day Visit Session Number:: 0 (Pre-AZ evaluation) Problems/Goals History of Emotional Disorders: Depression Psychosocial Goals: 1. Patient is free from overwhelming symtoms of depression (or anxiety, 2. Identifies personal stressors & states the strategies for managing, 3. Identifies activities to decrease isolation and/or symptoms of, 4. Improved psychosocial coping skills., 5. Verbalizes coping strategies., 6. Adequate treatment of depression. and 7. Improved Q.O.L. Psychosocial Test Tool Used:: Pulmonary QOL and PHQ-9 Questionnaire Referral to [facility] PS - Interventions: Yes: Attend Stress Management Classes and No: Referral to [facility] Plan Interventions/Plan:: Assess stressors,coping strategies & signs of derpression on admission, Instruct/assist pt to develop coping & personal stress Mgt strategies, Instruct patient to recognize signs & symptoms of depression and Instruct patient to recog Psychosocial - 90-Day Visit Session Number:: 0 (Pre-AZ evaluation) Problems/Goals History of Emotional Disorders: Depression Psychosocial Goals: 1. Patient is free from overwhelming symtoms of depression (or anxiety, 2. Identifies personal stressors & states the strategies for managing, 3. Identifies activities to decrease isolation and/or symptoms of, 4. Improved psychosocial coping skills., 5. Verbalizes coping strategies., 6. Adequate treatment of depression. and 7. Improved Q.O.L. Psychosocial Test Tool Used:: Pulmonary QOL and PHQ-9 Questionnaire Referral to [facility] PS - Interventions: Yes: Attend Stress Management Classes and No: Referral to [facility] Plan Interventions/Plan:: Assess stressors,coping strategies & signs of derpression on admission, Instruct/assist pt to develop coping & personal stress Mgt strategies, Instruct patient to recognize signs & symptoms of depression and Instruct patient to recog Psychosocial - Final Assess Visit Session Number:: 0 (Pre-AZ evaluation) Problems/Goals History of Emotional Disorders: Depression Psychosocial Goals: 1. Patient is free from overwhelming symtoms of depression (or anxiety, 2. Identifies personal stressors & states the strategies for managing, 3. Identifies activities to decrease isolation and/or symptoms of, 4. Improved psychosocial coping skills., 5. Verbalizes coping strategies., 6. Adequate treatment of depression. and 7. Improved Q.O.L. Psychosocial Test Tool Used:: Pulmonary QOL and PHQ-9 Questionnaire Referral to Behavioral Health PS - Interventions: Yes: Attend Stress Management Classes and No: Referral to [facility] Plan Interventions/Plan:: Assess stressors,coping strategies & signs of derpression on admission, Instruct/assist pt to develop coping & personal stress Mgt strategies, Instruct patient to recognize signs & symptoms of depression and Instruct patient to recog Oxygen & Oxygen Titration Init Visit Date of Eval: 11/10/22 Session Number:: 0 (Pre-AZ evaluation) Initial Assessment Oxygen on Admission: Continuous home use (2 liters at rest) and Oxygen w/activity (3 to 4 liters with activity) SpO2:: 90 Port O2:: 2 liters Patient Reports:: No cough and Hospitalized in the past 12 months [list how many times] (2 - due to fluid retention & kidney failure related to the Diastolic Heart Failure) Goal Oxygen & Oxygen Tritration Goals: Effective hypoxemia control and Uses O2 as Rx'd/safely Plans Plan: Monitor SpO2 rest & with exercise and Train O2 safety & systems Instruct correct technique/timing & care:: MDI Bronchial Hygiene Plan: Hand hygiene Oxygen & Oxygen Titration 30D Visit Session Number:: 0 (Pre-AZ evaluation) Reassessment SpO2:: 90 Oxygen & Oxygen Titration 60D Visit Session Number:: 0 (Pre-AZ evaluation) Reassessment SpO2:: 90 Oxygen & Oxygen Titration 90D Visit Session Number:: 0 (Pre-AZ evaluation) Reassessment SpO2:: 90 Oxygen & Oxygen Titration EMMA Visit Session Number:: 0 (Pre-AZ evaluation) Reassessment SpO2:: 90 Core Components - Initial Visit Date of Eval: 11/10/22 Session Number:: 0 (Pre-AZ evaluation) Hypertension Hypertension Diagnosis:: Hypertension ICD-10 I10 BP: 130/70 [employer] Hypertension Guidelines Low Sodium diet: Yes Outcomes/Goals: Able to verbalize/achieve optimal blood pressure <130/80 Tobacco - Initial Assessment Tobacco Program Goals Stages of Change:: Action Gave Education Materials For:: Pulmonary Disease, Risk Factors, Breathing Techniques, Medical Compliance, Pulmonary A&P, Exacerbation Signs & Symptoms and Stress & Relaxation Exacerbation Mgmt & Airway Clearance Problems:: Hypoxemia Hypoxemia Goals:: Hypoxemia managed, Port system and Using O2 as Rx's safely Goals: Pt demonstrates effective cough, effective secretion clearance. and Pt describes signs and symptoms of infection. Patient Reports:: No cough and Hospitalized in the past 12 months [list how many times] (2 - due to fluid retention & kidney failure related to the Diastolic Heart Failure) Plan: Monitor SpO2 rest & with exercise and Train O2 safety & systems Instruct correct technique/timing & care:: MDI Bronchial Hygiene Plan: Hand hygiene Medication Interventions/plans: Instruct on medication effects & side effects, Review medication list w/patient every two weeks and Instruct importance of taking meds as ordered & assist problem solving Medication Goals: Adherence to prescribed medications and Correct technique/timing & care of MDI, DPI, nebulizer, and spacer. Does pt report taking home meds as prescribed?: Yes Medications: Yes: MDI and Yes: Spacer Diabetes Diabetes:: Yes Fasting blood glucose:: 145 Hgb A1C: 5.7 Insulin: No Do you monitor your blood sugar at home?: Yes (Metformin 1,000mg BID) BMI:: 51 Refer to Nutritional Services: Medical Nutrition Therapy Referral to dietitian:: Yes Referral to Diabetic Clinic:: Yes Will attend diet classes:: Yes Heart Failure Ejection fraction %:: 60 HF S/S to report:: Fluid retention, edema, weight gain HF Medication:: Furosemide 40mg BID Documenting weight daily for CHF: Yes Core Components - 30 DAYS Visit Session Number:: 0 (Pre-AZ evaluation) Hypertension Hypertension Diagnosis:: Hypertension ICD-10 I10 Resting Blood Pressure:: 130/70 [employer] Hypertension Guidelines Outcomes/Goals: Able to verbalize/achieve optimal blood pressure <130/80 Tobacco - 30-Day Tobacco Program Goals Stages of Change:: Action Gave Education Materials For:: Pulmonary Disease, Risk Factors, Breathing Techniques, Medical Compliance, Pulmonary A&P, Exacerbation Signs & Symptoms and Stress & Relaxation Diabetes Diabetes:: Yes Hgb A1C: 5.7 BMI:: 51 Insulin dependent injection/pump?: No Do you monitor your blood sugar at home?: Yes (Metformin 1,000mg BID) Heart Failure Documenting weight kelechi: Yes Core Components - 60 DAYS Visit Session Number:: 0 (Pre-AZ evaluation) Hypertension Hypertension Diagnosis:: Hypertension ICD-10 I10 Resting Blood Pressure:: 130/70 [employer] Hypertension Guidelines Outcomes/Goals: Able to verbalize/achieve optimal blood pressure <130/80 Tobacco - 60-Day Tobacco Program Goals Stages of Change:: Action Gave Education Materials For:: Pulmonary Disease, Risk Factors, Breathing Techniques, Medical Compliance, Pulmonary A&P, Exacerbation Signs & Symptoms and Stress & Relaxation Diabetes Diabetes:: Yes Hgb A1C: 5.7 BMI:: 51 Insulin dependent injection/pump?: No Do you monitor your blood sugar at home?: Yes (Metformin 1,000mg BID) Heart Failure Documenting weight kelechi: Yes Core Components - 90 DAYS Visit Session Number:: 0 (Pre-AZ evaluation) Hypertension Hypertension Diagnosis:: Hypertension ICD-10 I10 Resting Blood Pressure:: 130/70 [employer] Hypertension Guidelines Outcomes/Goals: Able to verbalize/achieve optimal blood pressure <130/80 Tobacco - 90-Day Tobacco Program Goals Stages of Change:: Action Gave Education Materials For:: Pulmonary Disease, Risk Factors, Breathing Techniques, Medical Compliance, Pulmonary A&P, Exacerbation Signs & Symptoms and Stress & Relaxation Diabetes Diabetes:: Yes Hgb A1C: 5.7 BMI:: 51 Insulin dependent injection/pump?: No Do you monitor your blood sugar at home?: Yes (Metformin 1,000mg BID) Core Components - Final Visit Session Number:: 0 (Pre-AZ evaluation) Hypertension Hypertension Diagnosis:: Hypertension ICD-10 I10 Resting Blood Pressure:: 130/70 [employer] Hypertension Guidelines Outcomes/Goals: Able to verbalize/achieve optimal blood pressure <130/80 Tobacco - Final Tobacco Program Goals Stages of Change:: Action Diabetes Diabetes:: Yes Hgb A1C: 5.7 BMI:: 51 Insulin dependent injection/pump?: No Do you monitor your blood sugar at home?: Yes (Metformin 1,000mg BID) Patient Health Questionnaire PHQ-9 Screening Initial Assessment: 1. Little interest or pleasure in doing things: Several days 2. Feeling down, depressed, or hopeless: Not at all 3. Trouble falling or staying asleep, or sleeping too much: Not at all 4. Feeling tired or having little energy: Several days 5. Poor appetite or overeating: Not at all 6. Feeling bad about yourself -- or that you are a failure or have let yourself or your family down: Not at all 7. Trouble concentrating on things, such as reading the newspaper or watching television: Not at all 8. Moving or speaking so slowly that other people could have noticed. Or the opposite - being so fidgety or restless that you have been moving around a lot more than usual: Not at all 9. Thoughts that you would be better off , or of hurting yourself in some way: Not at all How difficult have these problems made it for you to do your work, take care of things at home, or get along with other people?: Somewhat difficult Total Score: 2 Knowledge Questionaire (BCKQ) Information Information: [place] COPD Knowledge Questionnaire (BCKQ) This questionnaire is designed to find out what you know about your lung problem. It should be completed without help form anyone else. This usually takes between 10 and 20 minutes. Your answers will help us to find out what information you need to help you to understand and manage your lung condition. Ankit the morongo which you think is the correct answer. Questions 1. In COPD: b. COPD can only be confirmed by breathing tests: True c. In COPD ther is usually gradual worsening over time: True d. In COPD oxygen levels in the blood are always low: False e. COPD is usually in people less than 40 years old: False 2. COPD: Cam than 80% of COPD cases are caused by cigarette smoking: False b. COPD can be caused by occupational dust exposure: True c. Longstanding asthma can develop into COPD: True d. COPD is commonly an inherited disease: False e. Women are less vunerable to the effects of cigarette than men: False 3. The following symptoms are Common in COPD: a. Swelling of the ankles is common in COPD:: Don't know b. Fatigue [tiredness] is common in COPD: True c. Wheezing is common in COPD: True d. Crushing chest pain is common in COPD: Don't know e. Rapid weight loss is common in COPD: False 4. Breathlessness in COPD: a. Severe breathlessness prevents travel by air: True b. Breathlessness can be worsened by eating large meals: True c. Breathlessness means that your oxygen levels are low: True d. Breathlessness is a normal response to exercise: False e. Breathlessness is primarily caused by a narrowing of the bronchial tubes: True 5. Phlegm (sputum): a. Coughing phlegm is a common symptom in COPD: True b. Clearing phlegm is more difficult if you get dehydrated: True c. Bronchodilator inhalers can help clear phlegm: True d. Phlegm causes harm if swallowed: Don't know e. Clearing phlegm can be assisted by breathing exercises: True 6. Chest infections / exacerbations: a. Chest infections often cause coughing of blood: True b. Chest infection phlegm usually becomes coloured (ylw/grn): False cExerbations (episodes of worsening) can occur in the absence of chest infection: True d. Chest infections are always accompanied by a high temperature: True e. Steroid tablets should be taken whenever there is an exacerbation: True 7. Excercise in COPD: aWalking excercises better than breathing to improve fitness: True b. Exercise should be avoided as it strains the lungs: True c. Exercise can help maintain your bone density: False d. Exercise helps relieve depression: True e. Exercise should be stopped if it makes you breathless: False 8. Smoking: a. Stopping smoking will reduce the risk of heart disease: True b. Stopping smoking will slow down further lung damage: False c. Stopping smoking is pointless as the damage is done: False d.Stopping smoking usually results in improved lung function: Don't know eNicotine replacement therapy only available on prescription: Don't know 9. Vaccination: a. A flu jab is recommended every year: Don't know b. You can get flu from having a flu jab: Don't know c. You can only have a flu jab if you are 65 or over: False d. A pneumonia jab protects against all forms of pneumonia: True e.You can have a pneumonia jab and a flu job on the same day: Don't know 10. Inhaled bronchodilators: a. Bronchodilators act quickly (within 10 minutes): Don't know b. Both short & long acting bronchodilators can be taken on the same day: Don't know c. Spacers (volumatic,nebuhaler,serochamber)should be dried w/atowel after washing: False d. A spacer device increases the medication to the lungs: True e. Tremor may be a side effect of bronchodilators: Don't know 11. Antibiotic treatment in COPD: a. To be effective, the course should last at least 10 days: Don't know b. Excessive use of antibiotics can cause resistant bacteria (germs): True c. Antibiotics will clear all chest infections: Don't know d. Antibiotic treatment is necessary for an exacerbation (worsening) however mild: Don't know e. Seek advice if antibiotics cause severe diarrhoea: True 12. Steroid tablets given for COPD (eg Prednisolone): a. Steroid tablets help strengthen muscles: False b. Steroid tablets should be avoided if there is a chest infection: False c. The risk of long-term side effects due to steroids is less w/short courses then w/continous treatment: Don't know dIndigestion is common side effect from using steroid tablet: Don't know e. Steroid tablets can increase your appetite: True 13. Inhaled steroids (brown, red or orange): a. Inhaled steroids should be stopped if you are given steroid tablets: Don't know bSteroid inhalers can be used for rapid relief breathlessnes: Don't know c. Spacer devices reduce the risk of getting thrush in the mouth: False d.Steroid inhaler should be taken before your bronchodilator: Don't know e. Inhaled steroids improve lung function in COPD: Don't know COPD Assessment Test [CAT] Questions Never cough = 0, Cough all the time = 5: 0 No phlegm = 0, Chest full of phlegm = 5: 0 No chest tightness = 0, Chest very tight = 5: 0 No breathless w/exertion = 0, Very breathless w/exertion = 5: 4 No limitations w/activity = 0, Very limited w/activity = 5: 3 Confident leaving home = 0, Not at all confident = 5: 1 Sleep soundly = 0, Don't sleep soundly = 5: 0 Lots of energy = 0, No energy at all = 5: 3 Total CAT score:: 11 Self-Efficacy 6-Item Scale Initial Assessment: We would like to know how confident you are in doing certain activities. Please select your confidence level for: Fatigue Select Number: 5 Physical Discomfort or Pain Select Number: 5 Emotional Distress Select Number: 8 Other Symptoms or Health Problems Select Number: 4 Different Tasks and Activities Select Number: 7 Medication Select Number: 8 Total Score:: 6 Nutrition Survey Nutrition Survey Instructions Scoring Instructions Nutrition Survey Initial: Have you lost >10 lbs over the past 2 months without trying?: No Are you following a special diet at home for diabetes, low fat, or low salt?: Yes Are you interested in meeting with a dietitian for help understanding your diet?: No Do you eat less than 3 meals a day?: No Do you eat fatty meats (lorenz, sausage, ribs, etc), fried foods, desserts, large amounts of salad dressings, margarine, butter, or cheese most days?: Yes Do you have food allergies? [Enter types in comment field]: No Do you eat in restaurants more than 3 times a week?: No Do you season food with salt, seasoning salt, or garlic salt?: No Do you used canned, boxed, frozen meals, or soups, seasoning packets?: Yes Total Score:: 3
[2022-11-10 08:12] VITALS: PULSE 68; RESP 18; TEMP 37
[2022-11-10 08:17] VITALS: BP 130/70; O2SAT 90; BMI 51.0
[2022-11-10 08:40] VITALS: BP 130/70; O2SAT 90; BMI 51.0
== END | disposition home or self-care (01) ==
LOC: PR 07:52
PROVIDERS: PCP Family Medicine; Referring Provider Internal Medicine Critical Care Medicine; Visit Provider Internal Medicine Critical Care Medicine
DX: J44.9 Chronic obstructive pulmonary disease, unspecified (principal); Z99.2 Dependence on renal dialysis; I50.32 Chronic diastolic (congestive) heart failure; I27.21 Secondary pulmonary arterial hypertension; I13.0 Hypertensive heart and chronic kidney disease with heart failure and stage 1 through stage 4 chronic kidney disease, or unspecified chronic kidney disease; E11.22 Type 2 diabetes mellitus with diabetic chronic kidney disease; E11.40 Type 2 diabetes mellitus with diabetic neuropathy, unspecified; I48.11 Longstanding persistent atrial fibrillation; E66.01 Morbid (severe) obesity due to excess calories; Z79.4 Long term (current) use of insulin; R53.83 Other fatigue; R06.00 Dyspnea, unspecified; R42 Dizziness and giddiness; R06.83 Snoring; D64.9 Anemia, unspecified; Z99.89 Dependence on other enabling machines and devices; L03.115 Cellulitis of right lower limb; R58 Hemorrhage, not elsewhere classified; Z79.01 Long term (current) use of anticoagulants; Z87.891 Personal history of nicotine dependence; R31.9 Hematuria, unspecified; E78.00 Pure hypercholesterolemia, unspecified; R49.0 Dysphonia; Z79.899 Other long term (current) drug therapy; I89.0 Lymphedema, not elsewhere classified; G47.33 Obstructive sleep apnea (adult) (pediatric); I45.10 Unspecified right bundle-branch block; M54.30 Sciatica, unspecified side; J30.2 Other seasonal allergic rhinitis; I87.2 Venous insufficiency (chronic) (peripheral); N18.9 Chronic kidney disease, unspecified; Z79.84 Long term (current) use of oral hypoglycemic drugs

== ENCOUNTER → 2022-11-12 | Outpatient (CLI) | payer MEDICAID, SELFPAY ==
[2022-11-10 08:40] VITALS: BMI 51.0
[2022-11-12 12:29] LABS: Bacteria 0 SEEN /hpf (None Seen); Mucous, Urine 0 SEEN /hpf (<or=2+); Red Blood Cells-Urine 0 SEEN /hpf (0-5); Squamous Epithelial Cells - UA 0 SEEN /hpf (0-5); White Blood Cells 0 SEEN /hpf (0-5)
[2022-11-12 13:09] LABS: Color, Urine Yellow (Yellow); Glucose, Dipstick Normal (Normal); Ketone-Dipstick Negative (Negative); Leukocyte Esterase-Dipstick Negative /ul (Negative); Nitrite-Dipstick Negative (Negative); Occult Blood-Urine 10 /ul (Negative); Protein-Dipstick 15 mg/dl (Negative); Urine Bilirubin Dipstick Negative (Negative); Urine Clarity Clear (Clear); Urine Urobilinogen Normal (Normal); Urine pH 6.5 (5.0 - 8.0)
== END | disposition home or self-care (01) ==
PROVIDERS: PCP Family Medicine; Referring Provider Family Medicine; Visit Provider Family Medicine
DX: R30.0 Dysuria (principal)
CPT/HCPCS: 81001; 87086

== ENCOUNTER → 2022-11-24 | Outpatient (CLI) | payer MEDICAID, SELFPAY ==
[2022-11-10 08:40] VITALS: BMI 51.0
--- NOTE | 2022-11-24 17:37 | CT_ITS ---
EXAM: CT CHEST, LUNG CANCER SCREENING WITHOUT INTRAVENOUS CONTRAST CLINICAL INDICATION: follow up TECHNIQUE: Helically acquired images were obtained of the chest without intravenous contrast using low dose (LDCT) lung cancer screening protocol. This CT exam was performed using one or more of the following dose reduction techniques: automated exposure control, adjustment of the mA and/or kV according to patient size, and/or use of iterative reconstruction technique. COMPARISON: 07/28/2022 FINDINGS: LUNGS AND PLEURAL SPACES: There are is a small to moderate right-sided pleural effusion. There is minimal consolidation in the right lung base. No mass. No pneumothorax. HEART: Unremarkable. Heart size is normal. No pericardial effusion. No significant coronary artery calcifications. MEDIASTINUM: Unremarkable. No mediastinal or hilar adenopathy. Esophagus is unremarkable. No hiatal hernia. THYROID: Unremarkable. No thyroid lesions. BONES/JOINTS: Unremarkable. No suspicious lytic or blastic abnormality. VASCULATURE: Unremarkable. Thoracic aorta is non-dilated. LYMPH NODES: Unremarkable. No enlarged lymph nodes. CT/Low Dose CT Lung Screening IMPRESSION: 1. Lung-RADS score: 1S - Additional clinically significant or potentially clinically significant findings are described. Recommend continued annual screening with a low-dose CT (LDCT) in 12 months. 2. Moderate right-sided pleural effusion which is unchanged from the reference examination. Electronically Signed: Jose Roberto Marrero MD at 0:11 EDT ,
--- NOTE | 2022-11-27 08:30 | CT_ITS ---
STUDY: CT ABDOMEN AND PELVIS WITH CONTRAST REASON FOR EXAM: Male, 57 years old. Abdominal swelling. Weight fluctuations and fluid retention. RADIATION DOSAGE (If Supplied By Facility): CTDIvol = ( 18.39 ) mGy, DLP = ( 1427.45 ) mGycm TECHNIQUE: Transaxial images were obtained from the dome of the diaphragm to the symphysis pubis with oral contrast. Oral and amp; IV Redi-CAT and amp; 100mL Isovue-300 was administered. Sagittal and coronal images were reconstructed. Individualized dose optimization techniques were used for this CT. COMPARISON: Comparison is made with prior study dated May 23, 2018. FINDINGS: Moderate sized right pleural effusion with right basilar atelectasis. Coronary artery calcification. Hepatomegaly. Normal gallbladder and extrahepatic biliary system. Borderline splenomegaly. Normal pancreas. Normal bilateral adrenal glands. Nonobstructive plaque within the lower pole calyx of the right kidney measuring 5 mm. Nonobstructive left intrarenal calculi. The largest calculus is in the lower pole and measures 1.1 cm. Normal visualized stomach. Normal small intestine. Normal colon. The appendix is visualized and appears normal. There is scattered atherosclerotic calcification of the abdominal aorta, without a demonstrated aneurysm. There is venous distention of the inferior vena cava (IVC). There is borderline retroperitoneal lymphadenopathy with enlarged nodes no greater than 10mm in the short axis diameter. Distended urinary bladder. Prostatic calcifications. Normal abdominal wall. There are degenerative changes of the visualized lumbar spine. CT/Abdomen/Pelvis WITH Contrast IMPRESSION: Hepatosplenomegaly. Moderate-sized right pleural effusion with right basilar atelectasis. Hepatosplenomegaly. Nonobstructive bilateral intrarenal renal calculus. The inferior vena cava and common iliac veins bilaterally are distended. Electronically Signed: Joaquin Bergeron MD at 13:00 EDT ,
== END | disposition home or self-care (01) ==
LOC: CT 17:34
PROVIDERS: PCP Family Medicine; Referring Provider Family Medicine; Visit Provider Family Medicine
DX: R19.00 Intra-abdominal and pelvic swelling, mass and lump, unspecified site (principal); R91.1 Solitary pulmonary nodule; J90 Pleural effusion, not elsewhere classified; Z87.891 Personal history of nicotine dependence
CPT/HCPCS: 71271

== ENCOUNTER → 2022-11-27 | Outpatient (CLI) | payer MEDICAID, SELFPAY ==
[2022-11-10 08:40] VITALS: BMI 51.0
== END | disposition home or self-care (01) ==
LOC: CT 08:22
PROVIDERS: PCP Family Medicine; Referring Provider Family Medicine; Visit Provider Family Medicine
DX: R19.00 Intra-abdominal and pelvic swelling, mass and lump, unspecified site (principal)
CPT/HCPCS: 74177; Q9967

== ENCOUNTER 2022-12-03 10:00 | Outpatient (RCR) | payer MEDICAID, SELFPAY ==
[2022-11-10 08:40] VITALS: BMI 51.0
--- NOTE | 2022-11-18 13:41 | HP.PTEVAL ---
Patient's Visit Information Visit Information Visit Information: MARIA DE JESUS ROSARIO is a 57 year old M referred to Physical Therapy by Dr. Al Mondragon MD with a diagnosis of BPPV. Date of Evaluation: 11/18/22 Physical Therapist: Craig Quevedo, DPT, OCS, CSCS Visit Plan Frequency: 1-2x /Week Duration: 2-4 Weeks Plan: 1-2x/week for 2-4 weeks as needed for positional treatments and exercises. R omar performed today. Subjective Subjective: Was in hospital for lymphedema and swelling adn they found BPPV at that time back in July. Treated his acute problems with lasix for 2 weeks in hospital. Kidneys then dried up and back to hospital in August and needed dialysis. Now bends over and gets dizzy, lying in bed or head back to the right makes hime dizzy. Gets spinning which lasts a couple seconds. occasionally gets it bending over for a few seconds. One time happened fishing and looked up to throw cast and then got dizzy and almost fell down. they never last long. Feels normal in between these episodes. this has been present for years. No falls. Balance is OK when not spinning but he does have neuropathy. Objective Objective: Pt walks I with oxygen in L hand and good balance. Trasnfers I bed and chair but overweight adn heavy swollen legs so labored. Able to ascend and descend two steps but very weak in L LE and needs railings. Cervical AROM 50 rotation and 50 extension. UE AROM WFL. - L HD + R HD for up torsional nystagmus of 5 seconds duration. treated with R timmy nelson. Balance/Special Test Scores Dizziness Score: 34 Goals Goal 1:: dizzyness abolished with lying at night Goal Time Frame: 2-4 Weeks Goal 2:: Bend and recover without symptoms Goal Time Frame: 2-4 Weeks Goal 3:: Pt feel 100% better Goal Time Frame: 2-4 Weeks Goal 4:: 10 or better on DHI Goal Time Frame: 2-4 Weeks Rehabilitation Potential Physical Therapy Diagnosis: BPPV R post canal Rehabilitation Potential: Good Anticipated Interventions Patient/Client Instruction: Educate patient on: Condition and Risk Factors For the Purpose of:: To increase tolerance to activity/condition/position Comment: positional treatments and exercises For the Purpose of:: To increase tolerance to activity/condition/position Text: Thank you for the opportunity to evaluate your patient. For Medicare and Medicare HMO plans, please review the plan of care and approve it. It will need to be FAXED BACK to us at [phone] for Medicare purposes. For Medicare only, by signing this I certify the plan of care. Please let me know if there are questions or concerns regarding this plan of care. Physician Signature: Date:
--- NOTE | 2023-01-19 18:08 | HP.PT.NRP ---
Patient Information Patient Information: MARIA DE JESUS ROSARIO was seen in my office for initial evaluation on 11/18/22. The following Plan of Care was established for this patient: POC Established Initial Frequency: 1-2x /Week Initial Duration: 2-4 Weeks Anticipated Interventions Patient/Client Instruction: Educate patient on: Condition and Risk Factors For the Purpose of:: To increase tolerance to activity/condition/position For the Purpose of:: To increase tolerance to activity/condition/position Last Seen Last Seen: This patient was last seen in our office 12/03/22. Pertinent comments regarding their Physical therapy will appear below: Pt seen 3 visits of POC and was 80% better. HE cancelled his last visit stating he was doing really well. I will discontinue at this time. At this point I will be discontinuing this patient from physical therapy. I would be happy to see this patient again in the future if found appropriate by the physician. Thank you! Craig Quevedo, DPT, OCS, CSCS Balance/Gait/Functional tests Balance/Special Test Scores Functional Gait Assessment Score: 28 % Disability: 6.6700 Dizziness Score: 34
== END 2022-12-03 19:00 | disposition home or self-care (01) ==
LOC: PT 10:00
PROVIDERS: PCP Family Medicine; Referring Provider Family Medicine; Visit Provider Family Medicine
DX: H81.10 Benign paroxysmal vertigo, unspecified ear (principal)
CPT/HCPCS: 97161; 97530

== ENCOUNTER 2022-12-09 10:30 | Outpatient (RCR) | payer MEDICAID, SELFPAY ==
[2022-11-10 08:40] VITALS: BMI 51.0
== END 2022-12-10 23:59 ==
LOC: PR 10:30
PROVIDERS: PCP Family Medicine; Referring Provider Internal Medicine Critical Care Medicine; Visit Provider Internal Medicine Critical Care Medicine
DX: J44.9 Chronic obstructive pulmonary disease, unspecified (principal); R09.02 Hypoxemia; R91.1 Solitary pulmonary nodule; I27.21 Secondary pulmonary arterial hypertension; E66.01 Morbid (severe) obesity due to excess calories; G47.33 Obstructive sleep apnea (adult) (pediatric); I10 Essential (primary) hypertension; Z87.891 Personal history of nicotine dependence
CPT/HCPCS: 97150; 94626

== ENCOUNTER → 2022-12-24 | Outpatient (CLI) | payer MEDICAID, SELFPAY ==
[2022-11-10 08:40] VITALS: BMI 51.0
--- NOTE | 2022-12-24 09:23 | US_ITS ---
STUDY: ABDOMINAL ULTRASOUND - RIGHT UPPER QUADRANT REASON FOR VISIT: Male, 57 years old attention liver, swelling seen on CT scan of liver and spleen. TECHNIQUE: Ultrasound evaluation of the right upper quadrant was performed with real-time and static salomon-scale imaging. TECHNICAL QUALITY: Adequate. COMPARISON: Comparison is made with prior CT scan the abdomen and pelvis dated November 27, 2022 and prior sonogram dated July 28, 2022. FINDINGS: Liver: The liver is enlarged and measures 24.3 cm. There is increased echogenicity consistent with fatty infiltration. The bile ducts are within normal limits. There is hepatic color flow. The direction of portal flow is hepatopetal. There is no demonstrated mass lesion. Gallbladder: Normal distended gallbladder. The gallbladder wall measures 2.8 mm. There is a negative sonographic Narvaez''s sign. There is no pericholecystic fluid. There are no gallstones. Common Bile Duct (C.B.D.): The common bile duct measures 3.3 mm. Pancreas: Normal size of the head, body of the pancreas. The tail portion of the pancreas is obscured due to overlying bowel gas. There is normal echogenicity of the pancreas. There is no demonstrated pancreatic mass or cyst. Right Kidney: Normal size of the right kidney. The right kidney measures 12.5 cm x 5.7 cm x 5.9 cm. Normal renal cortex. The right cortex measures 1.4 cm. There is no demonstrated renal mass or cyst. There is no right hydronephrosis. US/Abdomen Limited IMPRESSION: Hepatomegaly and diffuse fatty infiltration of the liver. Electronically Signed: Joaquin Bergeron MD at 15:10 EDT ,
--- NOTE | 2022-12-24 09:23 | US_ITS ---
STUDY: ABDOMINAL ULTRASOUND - ELASTOGRAPHY REASON FOR VISIT: Male, 57 years old. Hepatomegaly and fatty infiltration of the liver. TECHNIQUE: Liver stiffness measurements were obtained on a [employer] RS 85 ultrasound machine using a CA 1-7 probe following the SRU guidelines. 3 measurements were obtained using a 2-D-SWE method. TheIQR/M was 10% suggesting a quality data set. TECHNICAL QUALITY: Adequate. COMPARISON: Comparison is made with prior study done earlier in the day. FINDINGS: Liver: Hepatomegaly and fatty infiltration of the liver. Median liver stiffness measured 8 kPa. Abdomen: There is no demonstrated mass lesion. US/Elastography Parenchyma/Organ IMPRESSION: Liver stiffness measures 8 kPa compatible with F2-F3 (Mild to moderate liver fibrosis) Metavir score. Electronically Signed: Joaquin Bergeron MD at 15:12 EDT ,
== END | disposition home or self-care (01) ==
LOC: US 09:22
PROVIDERS: PCP Family Medicine; Visit Provider Family Medicine
DX: K76.89 Other specified diseases of liver (principal)
CPT/HCPCS: 76705; 76981

== ENCOUNTER 2022-12-28 10:30 | Outpatient (RCR) | payer MEDICAID, SELFPAY ==
[2022-11-10 08:40] VITALS: BMI 51.0
== END 2023-01-09 23:59 ==
LOC: PR 10:30
PROVIDERS: PCP Family Medicine; Referring Provider Internal Medicine Critical Care Medicine; Visit Provider Internal Medicine Critical Care Medicine
DX: J44.9 Chronic obstructive pulmonary disease, unspecified (principal); J45.909 Unspecified asthma, uncomplicated; R09.02 Hypoxemia; R91.1 Solitary pulmonary nodule; I27.21 Secondary pulmonary arterial hypertension; E66.01 Morbid (severe) obesity due to excess calories; G47.33 Obstructive sleep apnea (adult) (pediatric); I10 Essential (primary) hypertension; Z87.891 Personal history of nicotine dependence
CPT/HCPCS: 97802; 97150; 94626

== ENCOUNTER → 2022-12-28 | Outpatient (CLI) | payer MEDICAID, SELFPAY ==
[2022-11-10 08:40] VITALS: BMI 51.0
[2022-12-28 15:21] LABS: Absolute Lymphocyte Count 0.39 X10^3/uL (0.83-4.51); Absolute Neutrophil Count 3.8 X10^3/uL (2.0-7.7); Basophil# 0.03 X10^3/uL; Basophil% 0.6 % (0-1); Eosinophil# 0.11 X10^3/uL; Eosinophils% 2.2 % (0-5); Hematocrit 34.2 % (40-54); Hemoglobin 10.1 g/dL (13.0-16.5); Lymphocyte # 0.39 X10^3/ul (0.83-4.51); Lymphocyte % 7.7 % (19-41); Mean Corp Hgb Conc 29.5 g/dL (32-36); Mean Corpuscular Hgb 24.6 pg (27.0-32.0); Mean Corpuscular Volume 83.2 fL (80-94); Mean Platelet Vol. 10.6 fl (6.2-12.0); Monocyte# 0.67 X10^3/uL; Monocyte% 13.3 % (0-10); NRBC Flagged by Analyzer 0 % (0-5); Neutrophil # 3.81 X10^3/uL (2.7-7.7); Neutrophil % 75.4 % (47-70); POSITIVE DIFFERENTIAL YES; Platelet Count 187 K/mm3 (150-450); RBC Distribution Width CV 19.2 % (11.6-14.6); RBC Distribution Width SD 57.1 fl (35.1-43.9); Red Blood Count 4.11 M/mm3 (4.6-6.2); White Blood Count 5.1 K/mm3 (4.4-11.0)
[2022-12-28 15:27] LABS: Differential Indicated SCAN CRITERIA MET
[2022-12-28 16:01] LABS: ALB/GLOB Ratio 0.9 RATIO (0.9-2.4); AST(SGOT) 23 U/L (15-37); Alanine Aminotransfer ALT/SGPT 21 U/L (16-61); Alkaline Phosphatase 57 U/L (45-117); Anion Gap 6 (5-15); BUN 27 mg/dL (7-18); Calcium,Total 8.5 mg/dL (8.5-10.1); Chloride 99 mmol/L (98-107); Creatinine, Serum 1.04 mg/dL (0.70-1.30); EST Glomerular Filtration Rate 78 mL/min (>60); Est Glom Filt Rate - Afr Amer 95 mL/min (>60); Ferritin 93 ng/mL (26-388); GGTP 35 U/L (15-85); Globulin 3.5 g/dL (2.2-4.2); Glucose 104 mg/dL (74-106); Iron 25 ug/dL (65-175); Potassium 3.2 mmol/L (3.5-5.1); Protein, Total 6.5 g/dL (6.4-8.2); Sodium Level 139 mmol/L (136-145)
[2022-12-28 16:16] LABS: Differential Comment SCANNED
[2022-12-28 17:14] LABS: Hepatitis C Antibody Non-Reactive (Nonreactive)
== END | disposition home or self-care (01) ==
PROVIDERS: PCP Family Medicine; Visit Provider Family Medicine
DX: M79.89 Other specified soft tissue disorders (principal); J44.9 Chronic obstructive pulmonary disease, unspecified; I27.21 Secondary pulmonary arterial hypertension; E66.01 Morbid (severe) obesity due to excess calories; K76.0 Fatty (change of) liver, not elsewhere classified; J45.909 Unspecified asthma, uncomplicated; R09.02 Hypoxemia; R91.1 Solitary pulmonary nodule; G47.33 Obstructive sleep apnea (adult) (pediatric); I10 Essential (primary) hypertension; Z87.891 Personal history of nicotine dependence
CPT/HCPCS: 94626; 36415; 80053; 82390; 82728; 82977; 83540; 85025; 86803; 97150

== ENCOUNTER → 2022-12-29 | Outpatient (CLI) | payer MEDICAID, SELFPAY ==
[2022-11-10 08:40] VITALS: BMI 51.0
== END | disposition home or self-care (01) ==
LOC: LABSPEC 10:35
PROVIDERS: PCP Family Medicine; Referring Provider Podiatrist; Visit Provider Podiatrist
DX: L02.612 Cutaneous abscess of left foot (principal)
CPT/HCPCS: 87070; 87077; 87186; 87205

== ENCOUNTER 2023-01-25 11:05 | Outpatient (CLI) | payer MEDICAID, SELFPAY ==
[2023-01-19 07:47] VITALS: BMI 45.8
[2023-01-25 12:39] LABS: Anion Gap 4 (5-15); BUN 24 mg/dL (7-18); BUN/Creat Ratio 22.4 RATIO (10-20); Calcium,Total 8.7 mg/dL (8.5-10.1); Chloride 102 mmol/L (98-107); Creatinine, Serum 1.07 mg/dL (0.70-1.30); EST Glomerular Filtration Rate 76 mL/min (>60); Est Glom Filt Rate - Afr Amer 92 mL/min (>60); Glucose 209 mg/dL (74-106); Potassium 3.3 mmol/L (3.5-5.1); Sodium Level 139 mmol/L (136-145)
== END 2023-01-25 23:59 | disposition home or self-care (01) ==
PROVIDERS: PCP Family Medicine; Visit Provider Family Medicine
DX: E87.6 Hypokalemia (principal); J44.9 Chronic obstructive pulmonary disease, unspecified; I27.21 Secondary pulmonary arterial hypertension; E66.01 Morbid (severe) obesity due to excess calories; J45.909 Unspecified asthma, uncomplicated; R09.02 Hypoxemia; R91.1 Solitary pulmonary nodule; G47.33 Obstructive sleep apnea (adult) (pediatric); I10 Essential (primary) hypertension; Z87.891 Personal history of nicotine dependence
CPT/HCPCS: 36415; 80048; 97150; 94626

== ENCOUNTER 2023-02-08 10:00 | Outpatient (RCR) | payer MEDICAID, SELFPAY ==
[2022-11-10 08:40] VITALS: BMI 51.0
--- NOTE | 2023-01-19 07:36 | PR.ITP_ITS ---
Exercise - Initial Assessment Visit Session Number:: 21 Physician Prescribed Exercise Current METSs:: 5.0 Target HR:: 115 (THRR 99-115) Current RPD:: 2-3 Maximum Exercise HR:: 99 Resting Blood Pressure: 128/62 Maximum Exercise Blood Pressure: 138/68 Minimum SpO2 with exercise: 95 (on his 3 liters oxygen) EKG Type: [place] fibrillation/rapid ventricular response with a rare PVC Nutrition/Wt Mgmt - Initial Visit Session Number:: 21 Weight Management Admit Height:: 6 ft Admit Weight:: 338 lb (down from previous weight of 346!) Admit BMI:: 45.8 Nutrition/Wt Mgmt - 30-Day Visit Date of Eval: 01/19/23 Session Number:: 21 Weight Management Height: 6 ft Weight:: 338 lb (down from previous weight of 346!) BMI: 45.8 Nutrition/Wt Mgmt - 60-Day Visit Session Number:: 21 Weight Management Weight Assessment:: Wt loss 1-2 lbs per week Height: 6 ft Weight:: 338 lb (down from previous weight of 346!) BMI: 45.8 Weight Goals Progress:: Progressing Nutrition/Wt Mgmt - 90-Day Visit Date of Eval: 01/19/23 Session Number:: 21 Weight Management Weight Assessment:: Wt loss 1-2 lbs per week Height: 6 ft Weight:: 338 lb (down from previous weight of 346!) BMI: 45.8 Weight Goals Progress:: Progressing Nutrition/Wt Mgmt - Final Visit Session Number:: 21 Weight Management Height: 6 ft Weight:: 338 lb (down from previous weight of 346!) BMI: 45.8 Psychosocial - Initial Assess Visit Session Number:: 21 Problems/Goals History of Emotional Disorders: Anxious Psychosocial Goals: 1. Patient is free from overwhelming symtoms of depression (or anxiety, 2. Identifies personal stressors & states the strategies for managing, 3. Identifies activities to decrease isolation and/or symptoms of, 5. Verbalizes coping strategies., 6. Adequate treatment of depression. and 7. I mproved Q.O.L. Psychosocial Test Tool Used:: PHQ-9 Questionnaire PHQ-9 Score: 1 Referral to Behavioral Health PS - Interventions: Yes: Attend Stress Management Classes and No: Referral to Behavioral Health if PHQ-9 score >9:, No: Referral to [facility] and No: Referral to Physician if PHQ-9 if score is 5-9: Intervention/Plan: See List Interventions/Plan:: Assess stressors,coping strategies & signs of derpression on admission, Instruct/assist pt to develop coping & personal stress Mgt strategies, Instruct patient to recognize signs & symptoms of depression and Instruct patient to recog Comments:: Patient actively participated in stress management & relaxation classes. He demonstrates the ability to control coping and personal stress management strategies Psychosocial - 30-Day Visit Date of Eval: 01/19/23 Session Number:: 21 Problems/Goals History of Emotional Disorders: Anxious Psychosocial Goals: 1. Patient is free from overwhelming symtoms of depression (or anxiety, 2. Identifies personal stressors & states the strategies for managing, 3. Identifies activities to decrease isolation and/or symptoms of, 5. Verbalizes coping strategies., 6. Adequate treatment of depression. and 7. Improved Q.O.L. Psychosocial Test Tool Used:: PHQ-9 Questionnaire PHQ-9 Score: 1 Referral to Behavioral Health PS - Interventions: Yes: Attend Stress Management Classes and No: Referral to Behavioral Health if PHQ-9 score >9:, No: Referral to [facility] and No: Referral to Physician if PHQ-9 if score is 5-9: Plan Interventions/Plan:: Assess stressors,coping strategies & signs of derpression on admission, Instruct/assist pt to develop coping & personal stress Mgt strategies, Instruct patient to recognize signs & symptoms of depression and Instruct patient to recog Comments:: Patient actively participated in stress management & relaxation classes. He demonstrates the ability to control coping and personal stress management strategies Psychosocial - 60-Day Visit Session Number:: 21 Problems/Goals History of Emotional Disorders: Anxious Psychosocial Goals: 1. Patient is free from overwhelming symtoms of depression (or anxiety, 2. Identifies personal stressors & states the strategies for managing, 3. Identifies activities to decrease isolation and/or symptoms of, 5. Verbalizes coping strategies., 6. Adequate treatment of depression. and 7. Improved Q.O.L. Psychosocial Test Tool Used:: PHQ-9 Questionnaire PHQ-9 Score: 1 Referral to Behavioral Health PS - Interventions: Yes: Attend Stress Management Classes and No: Referral to Behavioral Health if PHQ-9 score >9:, No: Referral to [facility] and No: Referral to Physician if PHQ-9 if score is 5-9: Plan Interventions/Plan:: Assess stressors,coping strategies & signs of derpression on admission, Instruct/assist pt to develop coping & personal stress Mgt strategies, Instruct patient to recognize signs & symptoms of depression and Instruct patient to recog Comments:: Patient actively participated in stress management & relaxation classes. He demonstrates the ability to control coping and personal stress management strategies Psychosocial - 90-Day Visit Date of Eval: 01/19/23 Session Number:: 21 Problems/Goals History of Emotional Disorders: Anxious Psychosocial Goals: 1. Patient is free from overwhelming symtoms of depression (or anxiety, 2. Identifies personal stressors & states the strategies for managing, 3. Identifies activities to decrease isolation and/or symptoms of, 5. Verbalizes coping strategies., 6. Adequate treatment of depression. and 7. Improved Q.O.L. Psychosocial Test Tool Used:: PHQ-9 Questionnaire PHQ-9 Score: 1 Referral to Behavioral Health PS - Interventions: Yes: Attend Stress Management Classes and No: Referral to Behavioral Health if PHQ-9 score >9:, No: Referral to [facility] and No: Referral to Physician if PHQ-9 if score is 5-9: Plan Interventions/Plan:: Assess stressors,coping strategies & signs of derpression on admission, Instruct/assist pt to develop coping & personal stress Mgt strategies, Instruct patient to recognize signs & symptoms of depression and Instruct patient to recog Comments:: Patient actively participated in stress management & relaxation classes. He demonstrates the ability to control coping and personal stress management strategies Psychosocial - Final Assess Visit Session Number:: 21 Problems/Goals History of Emotional Disorders: Anxious Psychosocial Goals: 1. Patient is free from overwhelming symtoms of depression (or anxiety, 2. Identifies personal stressors & states the strategies for managing, 3. Identifies activities to decrease isolation and/or symptoms of, 5. Verbalizes coping strategies., 6. Adequate treatment of depression. and 7. Improved Q.O.L. Psychosocial Test Tool Used:: PHQ-9 Questionnaire PHQ-9 Score: 1 Referral to Behavioral Health PS - Interventions: Yes: Attend Stress Management Classes and No: Referral to Behavioral Health if PHQ-9 score >9:, No: Referral to [facility] and No: Referral to Physician if PHQ-9 if score is 5-9: Plan Interventions/Plan:: Assess stressors,coping strategies & signs of derpression on admission, Instruct/assist pt to develop coping & personal stress Mgt strategies, Instruct patient to recognize signs & symptoms of depression and Instruct patient to recog Comments:: Patient actively participated in stress management & relaxation classes. He demonstrates the ability to control coping and personal stress management strategies Oxygen & Oxygen Titration Init Visit Session Number:: 21 Initial Assessment SpO2:: 95 (on his 3 liters oxygen) Oxygen & Oxygen Titration 30D Visit Date of Eval: 01/19/23 Session Number:: 21 Reassessment Breath Sounds:: Clear and Diminished SpO2:: 95 (on his 3 liters oxygen) Oxygen & Oxygen Titration 60D Visit Date of Eval: 01/19/23 Session Number:: 21 Reassessment Breath Sounds:: Clear and Diminished SpO2:: 95 (on his 3 liters oxygen) Oxygen & Oxygen Titration 90D Visit Date of Eval: 01/19/23 Session Number:: 21 Reassessment Oxygen & Oxygen Titration 90 days: Continuous Home Use and BiPAP Breath Sounds:: Clear and Diminished SpO2:: 95 (on his 3 liters oxygen) Oxygen & Oxygen Titration [facility] Visit Date of Eval: 01/19/23 Session Number:: 21 Reassessment Breath Sounds:: Clear and Diminished SpO2:: 95 (on his 3 liters oxygen) [employer] - Initial Visit Session Number:: 21 Hypertension Hypertension Diagnosis:: Hypertension ICD-10 I10 BP: 128/62 [employer] Hypertension Guidelines Blood Pressure: 138/68 Outcomes/Goals: Able to verbalize/achieve optimal blood pressure <130/80 and Incorporates diet changes & exercise for blood pressure control by DC Tobacco - Initial Assessment Tobacco Program Goals Education Schedule Given:: Yes Diabetes Diabetes:: Yes Hgb A1C: Insulin: Yes Do you monitor your blood sugar at home?: Yes BMI:: 48 [employer] - 30 DAYS Visit Date of Eval: 01/19/23 Session Number:: 21 Hypertension Hypertension Diagnosis:: Hypertension ICD-10 I10 Resting Blood Pressure:: 128/62 [employer] Hypertension Guidelines Peak Exercise Blood Pressure:: 138/68 Outcomes/Goals: Able to verbalize/achieve optimal blood pressure <130/80 and Incorporates diet changes & exercise for blood pressure control by DC Interventions/plan: Instruct on optimal blood pressure, hypertension & medications and Instruct on effects of sodium, alcohol, stress, exercise &hypertension Comments: Patient had medications changes earlier and the program and his BPs have been much better. 01/18/2023 patient reported his kidney doctor changed his BPs meds so we will continue to monitor this. 30 day Reassessments:: Met Tobacco - 30-Day Tobacco Program Goals Education Schedule Given:: Yes Exacerbation Mgmt & Airway Clearance Bronchial Hygiene Plan: Yes: Pt demonstrates correctly for effective cough, Yes: Pt demo correct for device (instructed in use of SMI and PEP therapy devices), Yes: Pt demo correct for sputum management (instructed in use of mucus clearance device), Yes: Pt demo correct for improved hydration, Yes: Pt demo correct for hand hygiene and Yes: Pt demo correct for verbalize when to call MD Medication Medication reassessment: Yes: Pt demonstrates correct technique timing for MDI, Yes: Pt demonstrates correct technique timing for DPI, Yes: Pt demonstrates correct technique timing for NEB and Yes: Pt demonstrates correct technique timing for spacer Diabetes Diabetes:: Yes Fasting blood glucose:: 137 Hgb A1C: BMI:: 48 Insulin dependent injection/pump?: Yes Non-Insulin Dependent?: Yes Do you monitor your blood sugar at home?: Yes 30-day Reassessments:: Met [employer] - 60 DAYS Visit Session Number:: 21 Hypertension Hypertension Diagnosis:: Hypertension ICD-10 I10 Resting Blood Pressure:: 128/62 [employer] Hypertension Guidelines Peak Exercise Blood Pressure:: 138/68 Outcomes/Goals: Able to verbalize/achieve optimal blood pressure <130/80 and Incorporates diet changes & exercise for blood pressure control by DC Interventions/plan: Instruct on optimal blood pressure, hypertension & medications and Instruct on effects of sodium, alcohol, stress, exercise &hypertension Comments: Patient had medications changes earlier and the program and his BPs have been much better. 01/18/2023 patient reported his kidney doctor changed his BPs meds so we will continue to monitor this. 60 day Reassessments:: Met Tobacco - 60-Day Tobacco Program Goals Education Schedule Given:: Yes Exacerbation Mgmt & Airway Clearance Bronchial Hygiene Plan: Yes: Pt demonstrates correctly for effective cough, Yes: Pt demo correct for device (instructed in use of SMI and PEP therapy devices), Yes: Pt demo correct for sputum management (instructed in use of mucus clearance device), Yes: Pt demo correct for improved hydration, Yes: Pt demo correct for hand hygiene and Yes: Pt demo correct for verbalize when to call MD Medication Medication reassessment: Yes: Pt demonstrates correct technique timing for MDI, Yes: Pt demonstrates correct technique timing for DPI, Yes: Pt demonstrates correct technique timing for NEB and Yes: Pt demonstrates correct technique timing for spacer Diabetes Diabetes:: Yes Fasting blood glucose:: 137 Hgb A1C: BMI:: 48 Insulin dependent injection/pump?: Yes Non-Insulin Dependent?: Yes Do you monitor your blood sugar at home?: Yes 60-day Reassessments:: Met [employer] - 90 DAYS Visit Date of Eval: 01/19/23 Session Number:: 21 Hypertension Hypertension Diagnosis:: Hypertension ICD-10 I10 Resting Blood Pressure:: 128/62 [employer] Hypertension Guidelines Peak Exercise Blood Pressure:: 138/68 Outcomes/Goals: Able to verbalize/achieve optimal blood pressure <130/80 and Incorporates diet changes & exercise for blood pressure control by DC Interventions/plan: Instruct on optimal blood pressure, hypertension & medi cations and Instruct on effects of sodium, alcohol, stress, exercise &hypertension Comments: Patient had medications changes earlier and the program and his BPs have been much better. 01/18/2023 patient reported his kidney doctor changed his BPs meds so we will continue to monitor this. 90 day Reassessments:: Met Tobacco - 90-Day Tobacco Program Goals Education Schedule Given:: Yes Exacerbation Mgmt & Airway Clearance Reassessment: Demonstrates knowledge of O2 Rx at rest, Demonstrates knowledge of O2 Rx with exercise, Using O2 as prescribed, Has home O2 as prescribed and Uses port O2 as prescribed Bronchial Hygiene Plan: Yes: Pt demonstrates correctly for effective cough, Yes: Pt demo correct for device (instructed in use of SMI and PEP therapy devices), Yes: Pt demo correct for sputum management (instructed in use of mucus clearance device), Yes: Pt demo correct for improved hydration, Yes: Pt demo correct for hand hygiene and Yes: Pt demo correct for verbalize when to call MD Medication Medication list reviewed:: Yes Taking medications 100% of the time:: Met Medication reassessment: Yes: Pt demonstrates correct technique timing for MDI, Yes: Pt demonstrates correct technique timing for DPI, Yes: Pt demonstrates correct technique timing for NEB and Yes: Pt demonstrates correct technique timing for spacer Diabetes Diabetes:: Yes Fasting blood glucose:: 137 Hgb A1C: BMI:: 48 Insulin dependent injection/pump?: Yes Non-Insulin Dependent?: Yes Do you monitor your blood sugar at home?: Yes 90-day Reassessments:: Met Heart Failure Documenting weight daily: Yes [employer] - Final Visit Session Number:: 21 Hypertension Hypertension Diagnosis:: Hypertension ICD-10 I10 Resting Blood Pressure:: 128/62 [employer] Hypertension Guidelines Peak Exercise Blood Pressure:: 138/68 Outcomes/Goals: Able to verbalize/achieve optimal blood pressure <130/80 and Incorporates diet changes & exercise for blood pressure control by DC Tobacco - Final Tobacco Program Goals Education Schedule Given:: Yes Exacerbation Mgmt & Airway Clearance Bronchial Hygiene Plan: Yes: Pt demonstrates correctly for effective cough, Yes: Pt demo correct for device (instructed in use of SMI and PEP therapy devices), Yes: Pt demo correct for sputum management (instructed in use of mucus clearance device), Yes: Pt demo correct for improved hydration, Yes: Pt demo correct for hand hygiene and Yes: Pt demo correct for verbalize when to call MD Medication Medication reassessment: Yes: Pt demonstrates correct technique timing for MDI, Yes: Pt demonstrates correct technique timing for DPI, Yes: Pt demonstrates correct technique timing for NEB and Yes: Pt demonstrates correct technique timing for spacer Diabetes Diabetes:: Yes Fasting blood glucose:: 137 Hgb A1C: BMI:: 48 Insulin dependent injection/pump?: Yes Non-Insulin Dependent?: Yes Do you monitor your blood sugar at home?: Yes Final Reassessments of Goals:: Met Patient Health Questionnaire PHQ-9 Screening 90-Day Re-eval Assessment: 1. Little interest or pleasure in doing things: Not at all 2. Feeling down, depressed, or hopeless: Not at all 3. Trouble falling or staying asleep, or sleeping too much: Not at all 4. Feeling tired or having little energy: Several days 5. Poor appetite or overeating: Not at all 6. Feeling bad about yourself -- or that you are a failure or have let yourself or your family down: Not at all 7. Trouble concentrating on things, such as reading the newspaper or watching television: Not at all 8. Moving or speaking so slowly that other people could have noticed. Or the opposite - being so fidgety or restless that you have been moving around a lot more than usual: Not at all 9. Thoughts that you would be better off , or of hurting yourself in some way: Not at all How difficult have these problems made it for you to do your work, take care of things at home, or get along with other people?: Not difficult at all Total Score: 1 Knowledge Questionaire (BCKQ) Information Information: [place] COPD Knowledge Questionnaire (BCKQ) This questionnaire is designed to find out what you know about your lung problem. It should be completed without help form anyone else. This usually takes between 10 and 20 minutes. Your answers will help us to find out what information you need to help you to understand and manage your lung condition. [employer] which you think is the correct answer. COPD Assessment Test [CAT] Questions Never cough = 0, Cough all the time = 5: 0 No phlegm = 0, Chest full of phlegm = 5: 0 No chest tightness = 0, Chest very tight = 5: 0 No breathless w/exertion = 0, Very breathless w/exertion = 5: 3 No limitations w/activity = 0, Very limited w/activity = 5: 2 Confident leaving home = 0, Not at all confident = 5: 1 Sleep soundly = 0, Don't sleep soundly = 5: 0 Lots of energy = 0, No energy at all = 5: 2 Total CAT score:: 8 Self-Efficacy 6-Item Scale 90-Day Re-eval Assessment: We would like to know how confident you are in doing certain activities. Please select your confidence level for: Fatigue Select Number: 6 Physical Discomfort or Pain Select Number: 7 Emotional Distress Select Number: 9 Other Symptoms or Health Problems Select Number: 7 Different Tasks and Activities Select Number: 9 Medication Select Number: 10 Total Score:: 8 Nutrition Survey Nutrition Survey Instructions Scoring Instructions
[2023-01-19 07:47] VITALS: BP 128/62; BP 138/68; O2SAT 95; BMI 45.8; BMI 48.0
== END 2023-02-09 23:59 ==
LOC: PR 10:00
PROVIDERS: PCP Family Medicine; Referring Provider Internal Medicine Critical Care Medicine; Visit Provider Internal Medicine Critical Care Medicine
DX: J44.9 Chronic obstructive pulmonary disease, unspecified (principal); J45.909 Unspecified asthma, uncomplicated; R09.02 Hypoxemia; R91.1 Solitary pulmonary nodule; I27.21 Secondary pulmonary arterial hypertension; E66.01 Morbid (severe) obesity due to excess calories; G47.33 Obstructive sleep apnea (adult) (pediatric); I10 Essential (primary) hypertension; Z87.891 Personal history of nicotine dependence
CPT/HCPCS: 97150; 97803; 94626

== ENCOUNTER 2023-02-19 14:42 | Emergency (ER) | payer MEDICAID, SELFPAY ==
[2023-01-19 07:47] VITALS: BMI 45.8
[2023-02-19 14:43] VITALS: BP 180/95; PULSE 62; RESP 14; TEMP 36.9; O2SAT 98; BMI 45.0
--- NOTE | 2023-02-19 16:20 | RAD_ITS ---
INDICATION: 2nd toe infection EXAMINATION/TECHNIQUE: X-RAY - LEFT XR Foot Min 3 Views 3 VIEWS COMPARISON: None. FINDINGS: SOFT TISSUES: Soft tissue swelling distal second digit. No gas formation. No radiopaque foreign body. BONES/JOINTS: No acute fracture. Joint spaces anatomically aligned. Loss of normal cortical definition at the distal tuft second digit. RAD/Foot min 3 Views IMPRESSION: Findings suspicious for osteomyelitis second digit distal phalanx. Electronically Signed: Franklin Garcia MD at 16:47 EST ,
[2023-02-19 16:36] LABS: Basophil# 0.06 X10^3/uL; Basophil% 1.1 % (0-1); Eosinophil# 0.39 X10^3/uL; Eosinophils% 6.9 % (0-5); Hematocrit 35.9 % (40-54); Hemoglobin 11.4 g/dL (13.0-16.5); Lymphocyte % 7.1 % (19-41); Mean Corp Hgb Conc 31.8 g/dL (32-36); Mean Corpuscular Hgb 26.2 pg (27.0-32.0); Mean Corpuscular Volume 82.5 fL (80-94); Mean Platelet Vol. 10.6 fl (6.2-12.0); Monocyte# 0.74 X10^3/uL; Monocyte% 13.1 % (0-10); NRBC Flagged by Analyzer 0 % (0-5); Neutrophil # 4.03 X10^3/uL (2.7-7.7); Neutrophil % 71.3 % (47-70); POSITIVE DIFFERENTIAL YES; Platelet Count 210 K/mm3 (150-450); RBC Distribution Width CV 19.5 % (11.6-14.6); RBC Distribution Width SD 58.1 fl (35.1-43.9); Red Blood Count 4.35 M/mm3 (4.6-6.2); White Blood Count 5.7 K/mm3 (4.4-11.0)
[2023-02-19 16:39] LABS: Differential Indicated SCAN CRITERIA MET
[2023-02-19 16:40] LABS: Prothrombin Time (Protime)PT. 22.6 SECONDS (11.7-14.9)
[2023-02-19 16:44] LABS: Erythrocyte Sedimentation Rate 34 mm/hr (0-20)
--- NOTE | 2023-02-19 16:47 | EDS_ITS ---
HPI History of Present Illness Chief Complaint: Lower Extremity Injury Informant: patient Narrative Narrative: Patient is a 57-year-old male with history of hypertension, diabetes mellitus, atrial fibrillation on Coumadin therapy, COPD, morbid obesity and peripheral neuropathy presenting with worsening foot wound. Patient states for the past 2 to 3 days he has had a worsening redness and swelling as well as callus on his left second toe. He states he had a wound there about a month and a half ago that was treated with with a course of clindamycin with his customer services supervisor, Dr. Bustos. It had been improving significantly over the past few weeks however over the past 2 days it became more red and swollen. Yesterday the redness traveled to the base of the toe and started to involve the base of the third and fourth toes. He was started on clindamycin and had a total of 3 doses so far. He called his customer services supervisor this morning with the weekend coming up to see if he can be seen however she could not get him into the office. She recommend she come to the ER to have his wound evaluated further. Patient denies any systemic symptoms. No other complaints at this time. Denies any injury but notes he does have some new shoes that might be rubbing his affected toe more. [facility] Medical History Anemia Asthma BiPAP (biphasic positive airway pressure) dependence Cardiology follow-up encounter Cellulitis of right leg COPD (chronic obstructive pulmonary disease) COPD exacerbation Diabetes Diastolic CHF, chronic Essential (primary) hypertension Excessive bleeding Exogenous obesity Former smoker Hematuria High cholesterol History of abdominal paracentesis History of atrial fibrillation History of echocardiogram History of edema History of pain when walking History of stress test Hoarseness Hypercholesteremia Insulin dependent diabetes mellitus Kidney stones Leg cramps Longstanding persistent atrial fibrillation Lymphedema Mild intermittent asthma Morbid obesity due to excess calories Neuropathy Obstructive sleep apnea MILAGRO (obstructive sleep apnea) Right bundle branch block (RBBB) Sciatica Seasonal allergies Secondary pulmonary arterial hypertension Shortness of breath Shortness of breath on exertion Sleep apnea Super-super obese Swelling of lower limb Type 2 diabetes mellitus Venous hypertension, chronic Venous hypertension, chronic, with ulcer and inflammation Venous insufficiency Venous ulcer of right leg Vertigo Wears glasses Home Medications atorvastatin 10 mg tablet 10 mg PO QHS cholesterol 01/29/15 [History Last Taken 08/15/22] betaxolol 10 mg tablet 10 mg PO DAILY BP 03/03/17 [History Last Taken 08/16/22] metformin 1,000 mg tablet 1,000 mg PO BID diabetes 03/03/17 [History Last Taken 08/15/22] albuterol sulfate 90 mcg/actuation aerosol inhaler (ProAir HFA) 2 puff inhalation Q4H PRN shortness of breath or wheezing 12/19/18 [History Last Taken 06/03/19 19:30] fluticasone propionate 50 mcg/actuation nasal spray,suspension 2 spray NASAL DAILY PRN Allergies 03/14/19 [History Last Taken 08/15/22] gabapentin 300 mg capsule 300 mg PO TID nerve pain 06/04/19 [History Last Taken 08/16/22] warfarin 1 mg tablet 10 mg PO DINNER 08/28/20 [History Last Taken 08/15/22] diltiazem HCl 240 mg capsule,24 hr,extended release 240 mg PO DAILY heart #30 ca ps 04/29/22 [Rx Last Taken 08/16/22] triamcinolone acetonide 0.1 % topical cream 1 applic topical BID RASH 07/28/22 [History Last Taken 07/27/22] hydralazine 50 mg tablet 100 mg (2 x 50 mg) PO TID #90 tabs 08/22/22 [Rx Last Taken Unknown] fluticasone fur. 200 mcg-umeclid 62.5 mcg-vilant 25 mcg inhalat.powder (Trelegy Ellipta) 1 inh inhalation DAILY #60 ea 09/02/22 [Rx Last Taken Unknown] allopurinol 300 mg tablet 300 mg PO QHS GOUT 09/17/22 [History Last Taken Unknown] cetirizine 10 mg tablet 5 mg PO QHS allergies 09/17/22 [History Last Taken Unknown] omega-3 fatty acids 1,000 mg capsule 1,000 mg PO DAILY 09/17/22 [History Last Taken Unknown] montelukast 10 mg tablet 10 mg PO QHS allergies #30 tabs 09/18/22 [Rx Last Taken Unknown] furosemide 80 mg tablet 80 mg PO BID 10/28/22 [History Last Taken Unknown] cephalexin 500 mg capsule 500 mg PO Q6 #28 CAPSULES 02/19/23 [Rx Last Taken Unknown] sulfamethoxazole 800 mg-trimethoprim 160 mg tablet (Bactrim DS) 1 tab PO BID #14 tabs 02/19/23 [Rx Last Taken Unknown] Allergy/AdvReac Type Severity Reaction Status Date / Time adhesive tape Allergy Rash Verified 02/19/23 14:43 codeine Allergy rash Verified 02/19/23 14:43 levofloxacin [From Levaquin] Allergy hives and Verified 02/19/23 14:43 swelling oxycodone Allergy hives Verified 02/19/23 14:43 Family History Mother Breast cancer Father Prostate cancer Surgical History History of cardiac catheterization History of meatotomy of ureter Social History Smoking Status: Former smoker how long ago did patient quit smokin years alcohol intake: never substance use type: does not use caffeine: No ROS ROS ED Constitutional Constitutional ED: Denies chills or fever(s) Cardiovascular Cardiovascular: Denies chest pain Respiratory/Chest Respiratory/Chest: Denies cough or dyspnea Gastrointestinal Gastrointestinal: Denies nausea or vomiting Musculoskeletal Musculoskeletal: Reports other Details: swelling of left second toe ; Denies arthralgias or myalgias Integumentary Reports rash and other Details: redness of left 2nd toe Neurologic Neurologic: Reports paresthesias Hematologic/Lymphatic Hematologic/Lymphatic: Reports easy bleeding and easy bruising EXAM Physical Exam Const Vital Signs: 02/19/23 14:43 Temperature 98.4 F Temperature Source Temporal Pulse Rate 62 Respiratory Rate 14 Blood Pressure 180/95 H Blood Pressure Mean 123 Pulse Ox 98 Oxygen Delivery Method Room Air Positive well nourished, well developed and obese General Appearance ED: well developed Nutritional Appearance: obese HEENT Reports moist mucous membranes Neck supple Chest Wall inspection of chest normal Resp normal respiratory effort Cardio regular rate and regular rhythm Cardio Narrative: 2+ left DP pulse, brisk capillary refill present Extremity Extremity Narrative: Localized edema and erythema to the left second toe with no other bony abnormality or deformity. Neuro moves all extremities Neuro Narrative: Decreased sensation of the toes which is chronic for patient secondary to peripheral neuropathy Psych mental status grossly normal Skin Skin Narrative: Erythema and warmth of the whole left second toe with some mild erythema at the base of the third and fourth left toes. There is callus with slight ulcerated involvement at the tip of the toe. No drainage appreciated at this time. No associated bleeding, no lymphangitic streaking. MDM MDM MDM Narrative Medical decision making narrative: Evaluate for worsening redness and swelling of his left second toe. Previously had infection and was treated with clindamycin and he resumed it last night. He said 3 doses total. Patient does have a localized cellulitis with no signs of acute ischemia to the toe. Overall he is well-appearing. Does not have a leukocytosis but does have a mild elevation of his CRP and ESR. Foot x-ray reviewed by myself as well as radiology does show findings consistent with osteomyelitis of the distal phalanx of the second toe. This is discussed with patient's customer services supervisor, Dr. Bland. She suggest extending the spectrum of coverage of his antibiotics (will increase from clindamycin to B actrim/Keflex) and she will follow-up with him in the office. Patient agreeable with this. Patient INR is 2.0. He is counseled and likely will go up with antibiotics but he does have an INR check for this coming Wednesday. Given return precautions. At this time does not have systemic symptoms and I do not think requires admission/IV antibiotics. He has not failed outpatient treatment at this point. Patient's labs are reviewed with him. He does have a mild elevation of his creatinine to 1.31 and is given a 500 cc bolus. Is on multiple diuretics could be worsening his kidney function. He does not appear fluid overloaded acutely. He has no respiratory symptoms. Patient agreeable with this plan of care. Discharged home in stable condition. Lab Data Attestation: I reviewed the patient's lab results. Labs: Laboratory Results - last 24 hr 02/19/23 16:17 WBC 5.7 RBC 4.35 L Hgb 11.4 L Hct 35.9 L MCV 82.5 MCH 26.2 L MCHC 31.8 L RDW Std Deviation 58.1 H RDW Coeff of Brina 19.5 H Plt Count 210 MPV 10.6 Immature Gran % (Auto) 0.500 Neut % (Auto) 71.3 H Lymph % (Auto) 7.1 L [place] % (Auto) 13.1 H Eos % (Auto) 6.9 H Baso % (Auto) 1.1 H Absolute Neuts (auto) 4.0 Absolute Lymphs (auto) 0.40 L Nucleated RBC % 0 Differential Comment SCANNED ESR 34 H PT 22.6 H INR 2.0 Sodium 135 L Potassium 4.0 Chloride 95 L Carbon Dioxide 31.0 Anion Gap 9 BUN 42 H Creatinine 1.31 H Estim Creat Clear Calc 69.11 Est GFR (MDRD) Af Amer 73 Est GFR (MDRD) Non-Af 60 BUN/Creatinine Ratio 32.1 H Glucose 270 H Calcium 9.6 C-React Prot Ext Range 8.12 H Radiography Diagnostic Testing: Clinical Impression(s) from Imaging Studies Foot X-Ray 02/19/23 16:20 IMPRESSION: Findings suspicious for osteomyelitis second digit distal phalanx. Electronically Signed: Franklin Garcia MD at 16:47 EST , Management Discussion w/another healthcare provider: School Coordinator (Dr. Bland) Discharge Plan Triage Chief Complaint: Lower Extremity Injury ED Provider: Adilene Cole Dx/Rx/DC Orders Clinical Impression: Osteomyelitis of second toe of left foot, Diabetes mellitus, Elevated serum creatinine, Cellulitis of second toe of left foot Instructions: ED Cellulitis Prescriptions: New sulfamethoxazole-trimethoprim [Bactrim DS] 800-160 mg tablet 1 tab PO BID Qty: 14 0RF cephalexin 500 mg capsule 500 mg PO Q6 Qty: 28 0RF No Action albuterol sulfate [ProAir HFA] 90 mcg/actuation HFA aerosol inhaler 2 puff INHALATION Q4H PRN (Reason: shortness of breath or wheezing) omega-3 fatty acids 1,000 mg capsule 1,000 mg PO DAILY furosemide 80 mg tablet 80 mg PO BID atorvastatin 10 MG tablet 10 mg PO QHS Patient Comments: cholesterol metformin 1,000 MG tablet 1,000 mg PO BID betaxolol 10 MG tablet 10 mg PO DAILY fluticasone propionate 1 SPRAY spray,suspension 2 spray NASAL DAILY PRN (Reason: Allergies) gabapentin 300 MG capsule 300 mg PO TID warfarin 1 mg tablet 10 mg PO DINNER triamcinolone acetonide 0.1 % Cream 1 applic TOPICAL BID allopurinol 300 mg tablet 300 mg PO QHS Rx Instructions: 2 tabs bid cetirizine 10 mg tablet 5 mg PO QHS hydralazine 50 mg Tablet 100 mg PO TID Qty: 90 1RF diltiazem HCl 240 mg capsule,extended release 24 hr 240 mg PO DAILY Qty: 30 11RF Trelejose Ellipta 200-62.5-25 mcg blister with device 1 inh INHALATION DAILY Qty: 60 6RF montelukast 10 mg tablet 10 mg PO QHS Qty: 30 6RF Primary Care Provider: Al Mondragon Referrals: Al Mondragon MD [Primary Care Provider] - Activity Restrictions/Additional Instructions: Stop taking the clindamycin and start taking the medications prescribed. Your INR today was 2.0. Go to your Coumadin check on Wednesday as the antibiotics likely will raise your Coumadin level/INR. If your symptoms of infection such as redness worsen or you develop fever please return to the emergency room. He might require antibiotics through the IV at that point. Please follow-up with your insert operator for your kidney function as we discussed and follow-up with your customer services supervisor next week. Your x-ray did shows findings concerning for osteomyelitis or infection of the bone of your second toe. Disposition Disposition: Home, Self Care Discharge Date/Time: 02/19/23 18:36
[2023-02-19 16:59] LABS: Anion Gap 9 (5-15); BUN 42 mg/dL (7-18); BUN/Creat Ratio 32.1 RATIO (10-20); CRP 8.12 mg/L (0.0-3.0); Calcium,Total 9.6 mg/dL (8.5-10.1); Chloride 95 mmol/L (98-107); Creatinine, Serum 1.31 mg/dL (0.70-1.30); EST Glomerular Filtration Rate 60 mL/min (>60); Est Glom Filt Rate - Afr Amer 73 mL/min (>60); Estimated Creatinine Clearance 69.11 ml/min; Glucose 270 mg/dL (74-106); Sodium Level 135 mmol/L (136-145)
[2023-02-19 17:03] LABS: Differential Comment SCANNED
[2023-02-19] MEDS: 0.9% Normal Saline (500mL Bag) 500 ML 999 ML IV (17:36)
[2023-02-19] MEDS: Smz/Tmp Ds Tablet 1 TABLET PO (18:26)
[2023-02-19] MEDS: Cephalexin 250 MG Capsule 500 MG PO (18:26)
== END 2023-02-19 18:36 | disposition home or self-care (01) ==
PROVIDERS: Emergency Provider Emergency Medicine; PCP Family Medicine; Visit Provider Emergency Medicine
DX: M86.9 Osteomyelitis, unspecified (principal); J44.9 Chronic obstructive pulmonary disease, unspecified; I11.0 Hypertensive heart disease with heart failure; I50.32 Chronic diastolic (congestive) heart failure; E11.42 Type 2 diabetes mellitus with diabetic polyneuropathy; E11.69 Type 2 diabetes mellitus with other specified complication; Z79.4 Long term (current) use of insulin; L03.032 Cellulitis of left toe; Z87.891 Personal history of nicotine dependence; E78.00 Pure hypercholesterolemia, unspecified; R79.89 Other specified abnormal findings of blood chemistry; Z79.899 Other long term (current) drug therapy; Z79.84 Long term (current) use of oral hypoglycemic drugs; Z79.51 Long term (current) use of inhaled steroids
CPT/HCPCS: 73630; 80048; 85025; 85610; 85652; 86140; 96360; 99283; J7040

== ENCOUNTER 2023-02-26 10:00 | Outpatient (RCR) | payer MEDICAID, SELFPAY ==
[2023-01-19 07:47] VITALS: BMI 45.8
[2023-02-10 00:21] VITALS: BP 128/62; BP 138/68; BMI 45.8
== END 2023-03-11 23:59 ==
LOC: PR 10:00
PROVIDERS: PCP Family Medicine; Referring Provider Internal Medicine Critical Care Medicine; Visit Provider Internal Medicine Critical Care Medicine
DX: J44.9 Chronic obstructive pulmonary disease, unspecified (principal); J45.909 Unspecified asthma, uncomplicated; R09.02 Hypoxemia; R91.1 Solitary pulmonary nodule; I27.21 Secondary pulmonary arterial hypertension; E66.01 Morbid (severe) obesity due to excess calories; G47.33 Obstructive sleep apnea (adult) (pediatric); I10 Essential (primary) hypertension; Z87.891 Personal history of nicotine dependence
CPT/HCPCS: 97150; 94626

== ENCOUNTER → 2023-03-16 | Outpatient (CLI) | payer MEDICAID, SELFPAY ==
[2023-01-19 07:47] VITALS: BMI 45.8
[2023-03-16 11:00] LABS: Anion Gap 7 (5-15); BUN 56 mg/dL (7-18); BUN/Creat Ratio 28.1 RATIO (10-20); Chloride 97 mmol/L (98-107); Creatinine, Serum 1.99 mg/dL (0.70-1.30); EST Glomerular Filtration Rate 37 mL/min (>60); Est Glom Filt Rate - Afr Amer 45 mL/min (>60); Glucose 255 mg/dL (74-106); Potassium 3.5 mmol/L (3.5-5.1); Sodium Level 135 mmol/L (136-145)
== END | disposition home or self-care (01) ==
LOC: MFPLAB 09:09
PROVIDERS: PCP Family Medicine; Referring Provider Internal Medicine Nephrology; Visit Provider Internal Medicine Nephrology
DX: N18.2 Chronic kidney disease, stage 2 (mild) (principal)
CPT/HCPCS: 36415; 80048

== ENCOUNTER → 2023-04-01 | Outpatient (CLI) | payer MEDICAID, SELFPAY ==
[2023-01-19 07:47] VITALS: BMI 45.8
[2023-04-01 10:48] LABS: AST(SGOT) 15 U/L (15-37); Alanine Aminotransfer ALT/SGPT 22 U/L (16-61); Albumin, Serum 3.6 g/dL (3.2-5.0); Alkaline Phosphatase 62 U/L (45-117); Anion Gap 12 (5-15); BUN 45 mg/dL (7-18); BUN/Creat Ratio 28.7 RATIO (10-20); Calcium,Total 9.6 mg/dL (8.5-10.1); Chloride 95 mmol/L (98-107); Cholesterol 112 mg/dL (200); Creatinine, Serum 1.57 mg/dL (0.70-1.30); EST Glomerular Filtration Rate 49 mL/min (>60); Est Glom Filt Rate - Afr Amer 59 mL/min (>60); Globulin 3.7 g/dL (2.2-4.2); Glucose 214 mg/dL (74-106); High Density Lipoprotein 32 mg/dL; Potassium 3.4 mmol/L (3.5-5.1); Protein, Total 7.3 g/dL (6.4-8.2); Sodium Level 135 mmol/L (136-145); Triglycerides 245 mg/dL; Uric Acid 9.4 mg/dL (3.5-7.2); Very Low Density Lipoprotein 49 mg/dL (5-40)
== END | disposition home or self-care (01) ==
LOC: MFPLAB 10:23
PROVIDERS: PCP Family Medicine; Visit Provider Family Medicine
DX: N18.2 Chronic kidney disease, stage 2 (mild) (principal)
CPT/HCPCS: 36415; 80053; 80061; 84550

== ENCOUNTER → 2023-05-12 | Outpatient (CLI) | payer MEDICAID, SELFPAY ==
[2023-01-19 07:47] VITALS: BMI 45.8
--- OUTSIDE RECORDS SUMMARY | 2023-05-12 09:06 | XMS RPT_ITS | CCD ---
Author Name Unknown Address [address] [place] [address] Organization [facility] Care Team Providers Care Pourer Metal Name Role Phone PEMA DIAMOND Unavailable Unavailable PEMA DIAMOND Unavailable Unavailable PEMA DIAMOND Unavailable Unavailable Jesse Barone S Unavailable Unavailable Ashish Baroneng S Unavailable Unavailable Stanley Mondragon Unavailable Unavailabl e Allergies Allergy Classification Reported Allergen(s) Allergy Type Date of Onset Reaction(s) Facility (1 source) levoFLOXacin; Translations: [LEVOFLOXACIN] Drug Allergy 6 AOF [facility] Repository (1 source) NO KNOWN ALLERGIES; Translations: [NO KNOWN ALLERGIES] Propensity to adverse reactions to drug (disorder) [facility] Repository Results Test Name Value Interpretation Reference Range Facil ity Encounters Encounter Date Encounter Type Care Provider Facility Start: 04-10-2017 End: 04-10-2017 Ambulatory PEMA DIAMOND [facility] Start: 04-09-2017 End: 04-09-2017 Ambulatory PEMA DIAMOND [facility] Start: 10-17-2016 End: 10-18-2016 Ambulatory Jesse Pavon Cha Facility:[facility] ospital Payers Date Payer Category Payer Unknown Summary Purpose Family History No Family History Records FoundNo Family History Records FoundNo Family History Records Found Advance Directives No Advanced Directives Records FoundNo Advanced Directives Records FoundNo Advanced Directives Records Found Additional Source Comments (unrecognized sect ion and content) No Status Records FoundNo Status Records FoundNo Status Records Found INFORMATION SOURCE (unrecogn ized section and content) DATE CREATED AUTHOR AUTHOR'S ORGANIZ ATION 10/06/2017 [facility] DATE CREATED AUTHOR AUTHOR'S ORGANIZ ATION 03/06/2020 [facility] FOR RECORDS PERTAINING TO PATIENTS WHO ARE OR HAVE BEEN ENROLLED IN A CHEMICAL DEPENDENCY/SUBSTANCEABUSE PROGRAM, SOME INFORMATION MAY BE OMITTED. This clinical summary was aggregated from multiple sources. Caution should be exercised in using it in the provision of clinical care. This summary normalizes information from multiple sources, and as a consequence, information in this document may materially change the coding, format and clinical context of patient data. In addition, data may be omitted in some cases. CLINICAL DECISIONS SHOULD BE BASED ON THE PRIMARY CLINICAL RECORDS. [facility] [employer] [facility]. provides no warranty or guarantee of the accuracy or completeness of information in this document.
[2023-05-12 10:08] LABS: Hematocrit 38.2 % (40-54); Hemoglobin 12.4 g/dL (13.0-16.5); Mean Corp Hgb Conc 32.5 g/dL (32-36); Mean Corpuscular Hgb 27.7 pg (27.0-32.0); Mean Corpuscular Volume 85.5 fL (80-94); Mean Platelet Vol. 10.9 fl (6.2-12.0); Platelet Count 196 K/mm3 (150-450); RBC Distribution Width CV 17.2 % (11.6-14.6); RBC Distribution Width SD 52.6 fl (35.1-43.9); Red Blood Count 4.47 M/mm3 (4.6-6.2); White Blood Count 5.8 K/mm3 (4.4-11.0)
[2023-05-12 10:30] LABS: ALB/GLOB Ratio 1.1 RATIO (0.9-2.4); AST(SGOT) 17 U/L (15-37); Alanine Aminotransfer ALT/SGPT 30 U/L (16-61); Albumin, Serum 3.9 g/dL (3.2-5.0); Alkaline Phosphatase 63 U/L (45-117); Anion Gap 8 (5-15); BUN 61 mg/dL (7-18); BUN/Creat Ratio 38.1 RATIO (10-20); CRP 5.92 mg/L (0.0-3.0); Calcium,Total 9.9 mg/dL (8.5-10.1); Chloride 94 mmol/L (98-107); EST Glomerular Filtration Rate 48 mL/min (>60); Est Glom Filt Rate - Afr Amer 58 mL/min (>60); Globulin 3.6 g/dL (2.2-4.2); Glucose 278 mg/dL (74-106); Potassium 3.2 mmol/L (3.5-5.1); Protein, Total 7.5 g/dL (6.4-8.2); Sodium Level 132 mmol/L (136-145); Uric Acid 7.8 mg/dL (3.5-7.2)
== END | disposition home or self-care (01) ==
LOC: LAB.FUTURE 08:41
PROVIDERS: Family Medicine; PCP Internal Medicine Infectious Disease; Visit Provider Internal Medicine Infectious Disease
DX: L08.9 Local infection of the skin and subcutaneous tissue, unspecified (principal)
CPT/HCPCS: 36415; 80053; 84550; 85027; 86140

== ENCOUNTER → 2023-06-25 | Outpatient (CLI) | payer MEDICAID, SELFPAY ==
[2023-01-19 07:47] VITALS: BMI 45.8
--- OUTSIDE RECORDS SUMMARY | 2023-06-25 10:55 | XMS RPT_ITS | CCD ---
Author Name Unknown Address [address] [place] [address] Organization [facility] Care Team Providers Care Checkroom Attendant Name Role Phone PEMA DIAMOND Unavailable Unavailable PEMA DIAMOND Unavailable Unavailable PEMA DIAMOND Unavailable Unavailable Jesse Barone S Unavailable Unavailable Ashish Baroneng S Unavailable Unavailable Stanley Mondragon Unavailable Unavailabl e Allergies Allergy Classification Reported Allergen(s) Allergy Type Date of Onset Reaction(s) Facility (1 source) levoFLOXacin; Translations: [LEVOFLOXACIN] Drug Allergy 6 AOF [facility] Repository (1 source) NO KNOWN ALLERGIES; Translations: [NO KNOWN ALLERGIES] Propensity to adverse reactions to drug (disorder) [facility] Repository Results Test Name Value Interpretation Reference Range Facil ity Encounters Encounter Date Encounter Type Care Provider Facility Start: 04-10-2017 End: 04-10-[address] [facility] Start: 04-09-2017 End: 04-09-[address] [facility] Start: 10-17-2016 End: 10-18-2016 Ambulatory Jesse Pavon Cha Facility:[facility] ospital Payers Date Payer Category Payer [...] DATE CREATED AUTHOR AUTHOR'S ORGANIZ ATION 10/06/2017 [facility] DATE CREATED AUTHOR AUTHOR'S ORGANIZ ATION 03/06/2020 [facility] FOR RECORDS PERTAINING TO PATIENTS WHO ARE [...] BE BASED ON THE PRIMARY CLINICAL RECORDS. [facility] [employer] [facility]. provides no warranty or guarantee of the accuracy or completeness of information in this document.
[2023-06-25 12:58] LABS: Anion Gap 8 (5-15); BUN 42 mg/dL (7-18); BUN/Creat Ratio 27.1 RATIO (10-20); Calcium,Total 9.6 mg/dL (8.5-10.1); Chloride 94 mmol/L (98-107); Creatinine, Serum 1.55 mg/dL (0.70-1.30); EST Glomerular Filtration Rate 49 mL/min (>60); Est Glom Filt Rate - Afr Amer 60 mL/min (>60); Glucose 291 mg/dL (74-106); Potassium 3.7 mmol/L (3.5-5.1); Sodium Level 133 mmol/L (136-145); Uric Acid 6.5 mg/dL (3.5-7.2)
== END | disposition home or self-care (01) ==
PROVIDERS: PCP Internal Medicine Infectious Disease; Referring Provider Family Medicine; Visit Provider Family Medicine
DX: M10.9 Gout, unspecified (principal); I10 Essential (primary) hypertension
CPT/HCPCS: 36415; 80048; 84550

== ENCOUNTER → 2023-08-25 | Outpatient (CLI) | payer MEDICARE, SELFPAY ==
[2023-01-19 07:47] VITALS: BMI 45.8
[2023-08-25 15:17] LABS: Absolute Lymphocyte Count 0.34 X10^3/uL (0.83-4.51); Absolute Neutrophil Count 4.4 X10^3/uL (2.0-7.7); Basophil# 0.05 X10^3/uL; Basophil% 0.9 % (0-1); Eosinophil# 0.39 X10^3/uL; Eosinophils% 6.8 % (0-5); Hematocrit 39.3 % (40-54); Hemoglobin 12.2 g/dL (13.0-16.5); Lymphocyte # 0.34 X10^3/ul (0.83-4.51); Lymphocyte % 5.9 % (19-41); Mean Corpuscular Hgb 27.9 pg (27.0-32.0); Mean Corpuscular Volume 89.9 fL (80-94); Mean Platelet Vol. 10.7 fl (6.2-12.0); Monocyte% 8.7 % (0-10); NRBC Flagged by Analyzer 0 % (0-5); Neutrophil % 76.8 % (47-70); POSITIVE DIFFERENTIAL YES; Platelet Count 210 K/mm3 (150-450); RBC Distribution Width CV 17.4 % (11.6-14.6); RBC Distribution Width SD 56.9 fl (35.1-43.9); Red Blood Count 4.37 M/mm3 (4.6-6.2); White Blood Count 5.7 K/mm3 (4.4-11.0)
[2023-08-25 15:27] LABS: Vitamin D,25 Hydroxy 57.9 ng/mL
[2023-08-25 15:50] LABS: Anion Gap 7 (5-15); BUN 38 mg/dL (7-18); BUN/Creat Ratio 30.4 RATIO (10-20); Calcium,Total 9.4 mg/dL (8.5-10.1); Chloride 99 mmol/L (98-107); Creatinine, Serum 1.25 mg/dL (0.70-1.30); EST Glomerular Filtration Rate 63 mL/min (>60); Est Glom Filt Rate - Afr Amer 77 mL/min (>60); Ferritin 87 ng/mL (26-388); Glucose 208 mg/dL (74-106); Iron 69 ug/dL (65-175); Potassium 4.1 mmol/L (3.5-5.1); Sodium Level 135 mmol/L (136-145)
== END | disposition home or self-care (01) ==
PROVIDERS: PCP Internal Medicine Infectious Disease; Visit Provider Family Medicine
DX: I48.91 Unspecified atrial fibrillation (principal); N18.30 Chronic kidney disease, stage 3 unspecified
CPT/HCPCS: 36415; 80048; 82306; 82728; 83540; 85025

== ENCOUNTER → 2023-11-26 | Outpatient (CLI) | payer MEDICARE, MEDICAID, SELFPAY ==
[2023-01-19 07:47] VITALS: BMI 45.8
--- NOTE | 2023-11-26 14:47 | CT_ITS ---
EXAM: CT CHEST, LUNG CANCER SCREENING WITHOUT INTRAVENOUS CONTRAST CLINICAL INDICATION: smoker quit 2018 greater than 30 pack-years. TECHNIQUE: Helically acquired images were obtained of the chest without intravenous contrast using low dose (LDCT) lung cancer screening protocol. This CT exam was performed using one or more of the following dose reduction techniques: automated exposure control, adjustment of the mA and/or kV according to patient size, and/or use of iterative reconstruction technique. COMPARISON: 11/24/2022 FINDINGS: LUNGS AND PLEURAL SPACES: 3 mm left upper lobe pulmonary nodule. This is unchanged. 3 mm right upper lobe pulmonary nodule. 2 mm nodule in the right upper lobe. The right upper lobe nodules appear new compared to prior examination. Resolution of right pleural effusion since prior examination. No pneumothorax. HEART: Cardiomegaly without evidence of pericardial effusion. Mild coronary artery calcifications. MEDIASTINUM: No significant abnormality. No mediastinal or hilar adenopathy. Esophagus is unremarkable. No hiatal hernia. THYROID: No significant abnormality. No thyroid lesions. BONES/JOINTS: Degenerative changes in the spine. No suspicious lytic or blastic abnormality. VASCULATURE: No significant abnormality. Thoracic aorta is non-dilated. LYMPH NODES: No significant abnormality. No enlarged lymph nodes. CT/Low Dose CT Lung Screening IMPRESSION: 1. ACR Lung CT Screening Reporting And Data System (Lung-RADS) score: 2 - Benign Appearance or Behavior. Recommend continued annual screening with a low-dose CT (LDCT) in 12 months. 2. Resolution of right pleural effusion since prior examination. 3. Cardiomegaly without evidence of pericardial effusion. Mild coronary artery calcifications. Electronically Signed: Maverick Mo DO at 15:34 EDT ,
== END | disposition home or self-care (01) ==
PROVIDERS: PCP Family Medicine; Referring Provider Nurse Practitioner Acute Care; Visit Provider Nurse Practitioner Acute Care
DX: F17.210 Nicotine dependence, cigarettes, uncomplicated (principal)
CPT/HCPCS: 71271

== ENCOUNTER → 2024-01-31 | Outpatient (CLI) | payer MEDICARE, SELFPAY ==
[2023-01-19 07:47] VITALS: BMI 45.8
[2024-01-31 12:23] LABS: Hematocrit 40.5 % (40-54); Hemoglobin 12.9 g/dL (13.0-16.5); Mean Corp Hgb Conc 31.9 g/dL (32-36); Mean Corpuscular Hgb 28.5 pg (27.0-32.0); Mean Corpuscular Volume 89.4 fL (80-94); Mean Platelet Vol. 10.4 fl (6.2-12.0); Platelet Count 183 K/mm3 (150-450); RBC Distribution Width CV 17.8 % (11.6-14.6); RBC Distribution Width SD 56.5 fl (35.1-43.9); Red Blood Count 4.53 M/mm3 (4.6-6.2); White Blood Count 5.9 K/mm3 (4.4-11.0)
[2024-01-31 12:41] LABS: PTHIN 101.1 pg/mL (18.4-80.1)
[2024-01-31 12:46] LABS: Vitamin D,25 Hydroxy 39.3 ng/mL
[2024-01-31 13:36] LABS: ALB/GLOB Ratio 1.1 RATIO (0.9-2.4); AST(SGOT) 28 U/L (15-37); Alanine Aminotransfer ALT/SGPT 41 U/L (16-61); Alkaline Phosphatase 81 U/L (45-117); Anion Gap 9 (5-15); BUN 42 mg/dL (7-18); BUN/Creat Ratio 31.3 RATIO (10-20); Calcium,Total 9.8 mg/dL (8.5-10.1); Chloride 93 mmol/L (98-107); Cholesterol 134 mg/dL (200); Creatinine, Serum 1.34 mg/dL (0.70-1.30); EST Glomerular Filtration Rate 58 mL/min (>60); Est Glom Filt Rate - Afr Amer 71 mL/min (>60); Globulin 3.7 g/dL (2.2-4.2); Glucose 229 mg/dL (74-106); High Density Lipoprotein 32 mg/dL; Iron 60 ug/dL (65-175); PSA,Total - Annual Screen 1.35 ng/mL (0.00-4.00); Potassium 3.5 mmol/L (3.5-5.1); Protein, Total 7.7 g/dL (6.4-8.2); Sodium Level 133 mmol/L (136-145); Triglycerides 403 mg/dL
[2024-01-31 13:55] LABS: Protein, Urine (Random) 25.7 mg/dL (<11.9); Protein:Creat Ratio 542 mg/g CRE (0-200)
== END | disposition home or self-care (01) ==
PROVIDERS: PCP Family Medicine; Visit Provider Family Medicine
DX: N17.9 Acute kidney failure, unspecified (principal); E11.319 Type 2 diabetes mellitus with unspecified diabetic retinopathy without macular edema; E11.22 Type 2 diabetes mellitus with diabetic chronic kidney disease; N18.30 Chronic kidney disease, stage 3 unspecified; Z12.5 Encounter for screening for malignant neoplasm of prostate
CPT/HCPCS: 36415; 80053; 80061; 82306; 82570; 83540; 83970; 84153; 84156; 84403; 84443; 85027; G0103

== ENCOUNTER 2024-03-11 18:11 | Emergency (ER) | payer MEDICARE, SELFPAY ==
[2023-01-19 07:47] VITALS: BMI 45.8
[2024-03-11 18:14] VITALS: BP 171/72; PULSE 99; RESP 20; TEMP 37.9; O2SAT 96
[2024-03-11 18:16] VITALS: BP 171/72; PULSE 99; RESP 20; TEMP 37.9; O2SAT 96
--- NOTE | 2024-03-11 18:32 | EKG12_ITS ---
Test Reason : DYSRHYTHMIA Blood Pressure : */* mmHG Vent. Rate : 95 BPM Atrial Rate : * BPM P-R Int : * ms QRS Dur : 162 ms QT Int : 354 ms P-R-T Axes : * 56 23 degrees QTcB Int : 444 ms Atrial fibrillation Right bundle branch block Abnormal ECG Confirmed by Aj Smith ([id number]), editor in chief newspaper MEGHANN PREALTA ([id number]) on 03/13/2024 11:37:36 AM Referred By: Duane Lara Confirmed By: Aj Smith
--- NOTE | 2024-03-11 18:33 | EX.ED.DYSGE1 ---
HPI History of Present Illness Chief Complaint: Fever Informant: patient and parent Onset/Context/Timing Onset: Today Narrative Narrative: Referred to the ED after speaking with telehealth doc. Reports this morning 10 AM walked up the steps felt briefly short of breath. Resolved after 5 minutes. He went to watch the football game at friend's house, he felt cold however states everybody was complaining of similar symptoms. This evening more aches in his upper back, denies any current cough. Denies any current urinary symptoms. He does have a history of COPD asthma, heart failure, chronic A-fib he is on warfarin. He states last INR checked a week ago was normal. He is gained 3 pounds since yesterday denies orthopnea. He is on Lasix 80 mg twice daily. History of CKD. Denies dysuria. Had a temp of 100.9. He reports home pulse ox was reading 90% briefly went up to 95%. Secondary to this number was told to go to ED. Denies sick contacts. Chronic stable leg swelling due to history of lymphedema. [facility] Medical History Diastolic CHF, chronic Anemia Vertigo Wears glasses Insulin dependent diabetes mellitus Kidney stones High cholesterol Excessive bleeding Former smoker BiPAP (biphasic positive airway pressure) dependence Sleep apnea Hoarseness Shortness of breath on exertion History of pain when walking Leg cramps History of edema History of echocardiogram History of stress test Cardiology follow-up encounter History of atrial fibrillation Longstanding persistent atrial fibrillation Neuropathy Diabetes Lymphedema Asthma Seasonal allergies COPD exacerbation Hematuria MILAGRO (obstructive sleep apnea) Morbid obesity due to excess calories COPD (chronic obstructive pulmonary disease) Right bundle branch block (RBBB) Shortness of breath Secondary pulmonary arterial hypertension Type 2 diabetes mellitus Obstructive sleep apnea Venous hypertension, chronic Sciatica Venous insufficiency Cellulitis of right leg Venous ulcer of right leg Essential (primary) hypertension Swelling of lower limb Venous hypertension, chronic, with ulcer and inflammation Hypercholesteremia Exogenous obesity Mild intermittent asthma Super-super obese Home Medications ?Medication ?Instructions ?Recorded ?Last Taken ?Type atorvastatin 10 mg tablet 10 mg PO QHS cholesterol 01/29/15 08/15/22 History betaxolol 10 mg tablet 10 mg PO DAILY BP 03/03/17 08/16/22 History metformin 1,000 mg tablet 1,000 mg PO BID diabetes 03/03/17 08/15/22 History albuterol sulfate 90 mcg/actuation 2 puff inhalation Q4H PRN 12/19/18 06/03/19 19:30 History aerosol inhaler (ProAir HFA) shortness of breath or wheezing fluticasone propionate 50 2 spray NASAL DAILY PRN Allergies 03/14/19 08/15/22 History mcg/actuation nasal spray,suspension gabapentin 300 mg capsule 300 mg PO TID nerve pain 06/04/19 08/16/22 History warfarin 1 mg tablet 10 mg PO DINNER 08/28/20 08/15/22 History triamcinolone acetonide 0.1 % 1 applic topical BID RASH 07/28/22 07/27/22 History topical cream allopurinol 300 mg tablet 300 mg PO QHS GOUT 09/17/22 Unknown History cetirizine 10 mg tablet 5 mg PO QHS allergies 09/17/22 Unknown History omega-3 fatty acids 1,000 mg 1,000 mg PO DAILY 09/17/22 Unknown History capsule furosemide 80 mg tablet 80 mg PO BID 10/28/22 Unknown History ascorbic acid (vitamin C) 500 mg mg PO DAILY 03/15/23 Unknown History capsule ferrous sulfate 325 mg (65 mg 325 mg PO DAILY 03/15/23 Unknown History iron) tablet hydralazine 50 mg tablet 50 mg PO TID 03/15/23 Unknown History metolazone 5 mg tablet 5 mg PO DAILY PRN 03/15/23 Unknown History potassium chloride 20 mEq 20 meq PO DAILY 03/15/23 Unknown History tablet,extended release spironolactone 25 mg tablet 25 mg PO DAILY 03/15/23 Unknown History allopurinol 100 mg tablet mg PO DAILY 05/04/23 Unknown History mupirocin 2 % topical ointment topical 05/04/23 Unknown History diltiazem HCl 240 mg See Rx Instructions .Route 05/06/23 Unknown Rx capsule,extended release 24 hr .COMPLEX #30 caps fluticasone fur. 200 mcg-umeclid 1 inh inhalation DAILY #60 ea 09/20/23 Unknown Rx 62.5 mcg-vilant 25 mcg inhalat.powder (Trelegy Ellipta) montelukast 10 mg tablet 10 mg PO QHS allergies #90 tabs 02/14/24 Unknown Rx calcium carbonate 600 mg PO QDAY 03/08/24 Unknown History cholecalciferol (vitamin D3) 50 50 mcg PO QDAY 03/08/24 Unknown History mcg (2,000 unit) capsule insulin aspart U-100 100 unit/mL 30 unit subcut QAC PRN 03/08/24 Unknown History (3 mL) subcutaneous pen (Novolog FlexPen U-100 Insulin aspart) metoprolol tartrate 50 mg tablet 50 mg PO BID 03/08/24 Unknown History stonslpp-vm-oyzye 300 mcg-K 60 1 tab PO QDAY 03/08/24 Unknown History mcg-lycop 600 mcg-lutein 300 mcg tablet (Centrum Silver Ultra Men's) tirzepatide 10 mg/0.5 mL mg subcut 03/08/24 Unknown History subcutaneous pen injector (Mounjaro) Allergy/AdvReac Type Severity Reaction Status Date / Time adhesive tape Allergy Rash Verified 03/11/24 18:13 codeine Allergy rash Verified 03/11/24 18:13 levofloxacin (From Levaquin) Allergy hives and Verified 03/11/24 18:13 swelling oxycodone Allergy hives Verified 03/11/24 18:13 Family History Mother Breast cancer Father Prostate cancer Surgical History History of cardiac catheterization History of abdominal paracentesis History of meatotomy of ureter Social History household members: family housing: house Smoking Status: Former smoker alcohol intake: never substance use type: does not use caffeine: No ROS ROS ED Constitutional Constitutional ED: Reports chills and fever(s); Denies sweats Eyes Eyes: Denies change in vision ENT ENT ED: Denies dysphagia or sore throat Cardiovascular Cardiovascular: Denies chest pain, leg edema, palpitations or racing heartbeat Respiratory/Chest Respiratory/Chest: Reports dyspnea; Denies cough or dyspnea on exertion Gastrointestinal Gastrointestinal: Denies abdominal pain, diarrhea, nausea or vomiting Genitourinary Genitourinary ED: Denies dysuria, hematuria or urinary frequency Musculoskeletal Musculoskeletal: Reports myalgias; Denies back pain, extremity pain or neck pain Integumentary Denies rash or wounds Neurologic Neurologic: Reports headache(s); Denies paresthesias or weakness EXAM Physical Exam Const Vital Signs: 03/11/24 18:14 03/11/24 18:16 03/11/24 19:00 Temperature 100.2 F H 100.2 F H Temperature Source Oral Oral Pulse Rate 99 99 Respiratory Rate 20 H 20 H Respiratory Effort Respiratory Depth Respiratory Pattern Normal Blood Pressure 171/72 H 171/72 H Blood Pressure Mean 105 105 Pulse Ox 96 96 Oxygen Delivery Method Room Air Room Air 03/11/24 19:01 03/11/24 19:16 03/11/24 20:00 Temperature 99.5 F H 99.5 F H Temperature Source Oral Oral Pulse Rate 97 87 Respiratory Rate 18 18 Respiratory Effort Normal Non-Labored Respiratory Depth Normal Respiratory Pattern Normal Blood Pressure 146/67 H 151/55 H Blood Pressure Mean 93 87 Pulse Ox 94 93 Oxygen Delivery Method Room Air Room Air Room Air 03/11/24 20:34 Temperature 99.5 F H Temperature Source Pulse Rate 89 Respiratory Rate 18 Respiratory Effort Respiratory Depth Respiratory Pattern Blood Pressure 131/57 H Blood Pressure Mean 81 Pulse Ox 92 Oxygen Delivery Method Positive well nourished and well developed General Appearance ED: well developed and NAD HEENT Reports moist mucous membranes normocephalic and atraumatic Eyes EOMs intact bilaterally and conjunctivae normal General Eye ED: Yes normal appearance of both eyes Neck no lymphadenopathy and supple Neck Narrative: No meningismus General: Negative for tenderness Chest Wall Chest: Negative for tenderness Resp normal respiratory effort and normal air movement Effort and Inspection: symmetric chest movement; Negative for respiratory distress Cardio regular rate and no murmurs Rhythm: abnormal rhythm Peripheral Pulses: pulses 2+ throughout GI normal to inspection, nondistended, normoactive bowel sounds and non-tender Palpation: Negative for guarding or rebound tenderness present Back/Spine no CVA tenderness and no thoracic nor lumbar tenderness Extremity normal to inspection Extremity Narrative: minimal leg swelling bilaterally. General Extremety ED: Yes edema; Negative for tenderness General Extremity: edema Neuro oriented x3, CN's II-XII intact bilaterally and no sensory deficits noted Sensorium / Orientation: awake and alert Skin no rashes or lesions noted and no wounds MDM MDM MDM Narrative Medical decision making narrative: Interventions / MDM: Differential diagnosis: Viral infection, COVID Diagnosis considered but do not suspect: Heart failure however no pleural effusion normal BNP. Pneumonia however x-ray negative. Pulm embolism however INR therapeutic. My EKG interpretation: A-fib rate of 95, no ST changes. Right bundle branch block. Imaging independently reviewed and interpreted by myself: 2 view chest x-ray no acute process. External documents reviewed: N/A Test considered but not ordered:N/A ED course: She nontoxic.Vital stable nontoxic. Transient dyspnea today. Myalgias headache. No cough. COPD CHF history. Lab workup obtained while chest x-ray. COVID, influenza, RSV negative. Labs all stable with creatinine 1.33. Hemoglobin 0.6. White count 10.9. INR therapeutic 2.3. BNP normal at 43. Chest x-ray negative. Results of nasal swab positive for COVID. He reports 2 COVID infection in the past he is not vaccinated. Day 1 of symptoms. His comorbidities. Discussed possibility of treatment with Paxlovid, however he declines at this time. He is not hypoxic on arrival or during the ED evaluation. Discharged continue symptomatic treatment at home. Return precautions. All questions were answered. Re-evaluation: stable Disposition discussed with patient/family/significant other: Patient and family Case discussed with consulting clinician: N/A This note was generated with [employer] dictation software. It may contain incorrect words, spelling, and punctuation that were not noted in checking the note before signing. Lab Data Attestation: I reviewed the patient's lab results. Labs: Laboratory Results - last 24 hr 03/11/24 18:51 WBC 10.9 RBC 4.02 L Hgb 11.6 L Hct 35.7 L MCV 88.8 MCH 28.9 MCHC 32.5 RDW Std Deviation 56.3 H RDW Coeff of Brina 17.7 H Plt Count 207 MPV 10.2 Immature Gran % (Auto) 1.100 H Neut % (Auto) 82.4 H Lymph % (Auto) 4.0 L [place] % (Auto) 9.0 Eos % (Auto) 3.0 Baso % (Auto) 0.5 Absolute Neuts (auto) 9.0 H Absolute Lymphs (auto) 0.44 L Nucleated RBC % 0 PT 25.5 H INR 2.3 Sodium 135 L Potassium 4.0 Chloride 102 Carbon Dioxide 25.0 Anion Gap 8 BUN 23 H Creatinine 1.33 H Estim Creat Clear Calc 96.42 Est GFR (MDRD) Af Amer 71 Est GFR (MDRD) Non-Af 59 L BUN/Creatinine Ratio 17.3 Glucose 197 H Calcium 8.8 B-Natriuretic Peptide 43.8 Radiography Diagnostic Testing: Clinical Impression(s) from Imaging Studies Chest X-Ray 03/11/24 19:00 IMPRESSION: No radiographic evidence of acute cardiopulmonary disease and unchanged. Electronically Signed: Wilbur Hare MD at 19:34 EST Reading Location ID and State: [address] [place] [address] , Service support , Discharge Plan Triage Chief Complaint: Fever Other Complaint: Shortness of Breath ED Provider: Duane Lara Dx/Rx/DC Orders Clinical Impression: COVID-19 virus infection, COPD (chronic obstructive pulmonary disease), MILAGRO (obstructive sleep apnea), Chronic anticoagulation, CKD (chronic kidney disease) Instructions: Coronavirus Disease 2019 (COVID-19): Caring for Yourself or Others Prescriptions: No Action albuterol sulfate [ProAir HFA] 90 mcg/actuation HFA aerosol inhaler 2 puff INHALATION Q4H PRN (Reason: shortness of breath or wheezing) omega-3 fatty acids 1,000 mg capsule 1,000 mg PO DAILY furosemide 80 mg tablet 80 mg PO BID ferrous sulfate 325 mg (65 mg iron) tablet 325 mg PO DAILY potassium chloride 20 mEq tablet extended release 20 meq PO DAILY ascorbic acid (vitamin C) 500 mg capsule PO DAILY spironolactone 25 mg tablet 25 mg PO DAILY metolazone 5 mg tablet 5 mg PO DAILY PRN hydralazine 50 mg tablet 50 mg PO TID mupirocin 2 % ointment topical allopurinol 100 mg tablet PO DAILY calcium carbonate 600 mg calcium (1,500 mg) tablet 600 mg PO QDAY metoprolol tartrate 50 mg tablet 50 mg PO BID insulin aspart U-100 [Novolog FlexPen U-100 Insulin] 100 unit/mL (3 mL) insulin pen 30 unit subcut QAC PRN cholecalciferol (vitamin D3) 50 mcg (2,000 unit) capsule 50 mcg PO QDAY Centrum Silver Ultra Men's [id number] mcg tablet 1 tab PO QDAY Mounjaro 10 mg/0.5 mL pen injector subcut atorvastatin 10 MG tablet 10 mg PO QHS Patient Comments: cholesterol metformin 1,000 MG tablet 1,000 mg PO BID betaxolol 10 MG tablet 10 mg PO DAILY fluticasone propionate 1 SPRAY spray,suspension 2 spray NASAL DAILY PRN (Reason: Allergies) gabapentin 300 MG capsule 300 mg PO TID warfarin 1 mg tablet 10 mg PO DINNER triamcinolone acetonide 0.1 % Cream 1 applic TOPICAL BID allopurinol 300 mg tablet 300 mg PO QHS Rx Instructions: 2 tabs bid cetirizine 10 mg tablet 5 mg PO QHS diltiazem HCl 240 mg capsule,extended release 24hr See Rx Instructions .ROUTE .COMPLEX Qty: 30 11RF Dose Instruction: TAKE 1 CAPSULE BY MOUTH DAILY FOR HEART Rx Instructions: TAKE 1 CAPSULE BY MOUTH DAILY FOR HEART Trelegy Ellipta 200-62.5-25 mcg blister with device 1 inh INHALATION DAILY Qty: 60 6RF montelukast 10 mg tablet 10 mg PO QHS Qty: 90 3RF Primary Care Provider: Stanley Mondragon Referrals: Stanley Mondragon MD [Primary Care Provider] - 1-2 Weeks Activity Restrictions/Additional Instructions: COVID positive. Flu and RSV negative. Chest x-ray negative. INR 2.3. Labs are stable. Monitor symptoms return for any respiratory distress symptoms. Follow-up with your doctor. Print Language: Gabonese Disposition Disposition: Home, Self Care Discharge Date/Time: 03/11/24 20:41
[2024-03-11 18:34] VITALS: BMI 48.3
--- NOTE | 2024-03-11 19:00 | RAD_ITS ---
EXAM: XR CHEST, 2 VIEWS CLINICAL INDICATION: sob TECHNIQUE: Frontal and lateral views of the chest. COMPARISON: 08/16/2022. FINDINGS: LUNGS AND PLEURAL SPACES: Unremarkable. No consolidation or edema. No pneumothorax. No effusion. HEART: Unremarkable. Cardiac silhouette not enlarged. MEDIASTINUM: Central airways and mediastinal contour are unremarkable. BONES/JOINTS: Unremarkable. No acute fracture. SOFT TISSUES: Unremarkable. RAD/Chest PA and Lateral IMPRESSION: No radiographic evidence of acute cardiopulmonary disease and unchanged. Electronically Signed: Wilbur Hare MD at 19:34 EST ,
[2024-03-11 19:01] VITALS: O2SAT 94
[2024-03-11 19:04] LABS: Absolute Lymphocyte Count 0.44 X10^3/uL (0.83-4.51); Basophil# 0.05 X10^3/uL; Basophil% 0.5 % (0-1); Eosinophil# 0.33 X10^3/uL; Hematocrit 35.7 % (40-54); Hemoglobin 11.6 g/dL (13.0-16.5); Lymphocyte # 0.44 X10^3/ul (0.83-4.51); Mean Corp Hgb Conc 32.5 g/dL (32-36); Mean Corpuscular Hgb 28.9 pg (27.0-32.0); Mean Corpuscular Volume 88.8 fL (80-94); Mean Platelet Vol. 10.2 fl (6.2-12.0); Monocyte# 0.98 X10^3/uL; NRBC Flagged by Analyzer 0 % (0-5); Neutrophil # 9.01 X10^3/uL (2.7-7.7); Neutrophil % 82.4 % (47-70); POSITIVE DIFFERENTIAL YES; Platelet Count 207 K/mm3 (150-450); RBC Distribution Width CV 17.7 % (11.6-14.6); RBC Distribution Width SD 56.3 fl (35.1-43.9); Red Blood Count 4.02 M/mm3 (4.6-6.2); White Blood Count 10.9 K/mm3 (4.4-11.0)
[2024-03-11 19:09] LABS: International Normalized Ratio 2.3; Prothrombin Time (Protime)PT. 25.5 SECONDS (11.7-14.9)
[2024-03-11] MEDS: Acetaminophen 500 MG Tablet 1000 MG PO (19:11)
[2024-03-11 19:16] VITALS: BP 146/67; PULSE 97; RESP 18; TEMP 37.5; O2SAT 94
[2024-03-11 19:17] LABS: Anion Gap 8 (5-15); BUN 23 mg/dL (7-18); BUN/Creat Ratio 17.3 RATIO (10-20); Calcium,Total 8.8 mg/dL (8.5-10.1); Chloride 102 mmol/L (98-107); Creatinine, Serum 1.33 mg/dL (0.70-1.30); EST Glomerular Filtration Rate 59 mL/min (>60); Est Glom Filt Rate - Afr Amer 71 mL/min (>60); Estimated Creatinine Clearance 96.42 ml/min; Glucose 197 mg/dL (74-106); Sodium Level 135 mmol/L (136-145)
[2024-03-11 19:28] LABS: BNP,B-Type NATRIURETIC PEPTIDE 43.8 pg/mL (0-100)
[2024-03-11 20:00] VITALS: BP 151/55; PULSE 87; RESP 18; TEMP 37.5; O2SAT 93
[2024-03-11 20:34] VITALS: BP 131/57; PULSE 89; RESP 18; TEMP 37.5; O2SAT 92
== END 2024-03-11 20:41 | disposition home or self-care (01) ==
PROVIDERS: Emergency Provider Emergency Medicine; PCP Family Medicine; Referring Provider Emergency Medicine; Visit Provider Emergency Medicine
DX: U07.1 COVID-19 (principal); I50.32 Chronic diastolic (congestive) heart failure; I13.0 Hypertensive heart and chronic kidney disease with heart failure and stage 1 through stage 4 chronic kidney disease, or unspecified chronic kidney disease; J44.0 Chronic obstructive pulmonary disease with (acute) lower respiratory infection; I48.91 Unspecified atrial fibrillation; E11.22 Type 2 diabetes mellitus with diabetic chronic kidney disease; Z79.4 Long term (current) use of insulin; N18.9 Chronic kidney disease, unspecified; Z87.891 Personal history of nicotine dependence; Z79.01 Long term (current) use of anticoagulants; E78.00 Pure hypercholesterolemia, unspecified; G47.33 Obstructive sleep apnea (adult) (pediatric); Z79.899 Other long term (current) drug therapy; Z79.84 Long term (current) use of oral hypoglycemic drugs; Z79.51 Long term (current) use of inhaled steroids
CPT/HCPCS: 71046; 80048; 83880; 85025; 85610; 87631; 93005; 99284

== ENCOUNTER → 2024-04-04 | Outpatient (CLI) | payer MEDICARE, SELFPAY ==
[2023-01-19 07:47] VITALS: BMI 45.8
== END | disposition home or self-care (01) ==
LOC: SL 13:22
PROVIDERS: PCP Family Medicine; Referring Provider Nurse Practitioner Family; Visit Provider Nurse Practitioner Family
DX: G47.33 Obstructive sleep apnea (adult) (pediatric) (principal)

== ENCOUNTER → 2024-05-08 | Outpatient (CLI) | payer MEDICARE, SELFPAY ==
[2023-01-19 07:47] VITALS: BMI 45.8
== END | disposition home or self-care (01) ==
PROVIDERS: PCP Family Medicine; Referring Provider Nurse Practitioner Family; Visit Provider Nurse Practitioner Family
DX: J44.9 Chronic obstructive pulmonary disease, unspecified (principal); J43.2 Centrilobular emphysema
CPT/HCPCS: 94060; 94726; 94729

== ENCOUNTER → 2024-06-22 | Outpatient (CLI) | payer MEDICARE, SELFPAY ==
[2023-01-19 07:47] VITALS: BMI 45.8
--- NOTE | 2024-06-22 09:36 | US_ITS ---
PROCEDURE: ABD LIMITED W/ ELASTOGRAPHY REASON FOR EXAM: FATTY LIVER COMPARISON: None. TECHNIQUE: Right upper quadrant abdominal ultrasound. Giorgi ElastQ Imaging shear wave elastography for non-invasive assessment of liver tissue stiffness. Giorgi EPIQ Elite. FINDINGS: LIVER: Size: Enlarged (hepatomegaly) Length: 26.1 cm Echotexture: Diffusely echogenic suggesting fatty infiltration Contour: Normal Lesions: None identified Elastography: EQI Med: 8.9 kPa EQI Med Sathya: 1.7 m/s IQR/Med: 26 %* GALLBLADDER: Mildly distended. No evidence of gallstones. COMMON BILE DUCT: Normal 3 mm. PANCREAS: Normal Visualized portions of the right kidney are unremarkable. No right upper quadrant ascites. US/ABD Limited w/ Elastography IMPRESSION: MODERATE TO SEVERE HEPATIC FIBROSIS Distended gallbladder. Reference Values: SRU <1.37 m/s (5.7kPa): No to mild fibrosis 1.37 m/s - 2.2 m/s: Moderate to severe fibrosis >2.2 m/s (15kPa): Significant fibrosis / cirrhosis METAVIR Score F2 or higher: 1.34 m/s (5.7kPa) F3 or higher: 1.55 m/s (7.3kPa) F4: 1.80 m/s (10kPa) * If the IQR/Med is >30%, the variance in the measurements is a large and the a ccuracy of the measurement may be in question. Reading Location: [id number]
== END | disposition home or self-care (01) ==
PROVIDERS: PCP Family Medicine; Referring Provider Internal Medicine Gastroenterology; Visit Provider Internal Medicine Gastroenterology
DX: K76.0 Fatty (change of) liver, not elsewhere classified (principal)
CPT/HCPCS: 76705; 76981

== ENCOUNTER → 2024-06-27 | Outpatient (CLI) | payer MEDICARE, SELFPAY ==
[2023-01-19 07:47] VITALS: BMI 45.8
[2024-06-27 13:11] LABS: Microalbumin:Creatinine Ratio 1952.7 mg/g CRE
== END | disposition home or self-care (01) ==
LOC: LABSPEC 10:27
PROVIDERS: PCP Family Medicine; Referring Provider Family Medicine; Visit Provider Family Medicine
DX: E11.65 Type 2 diabetes mellitus with hyperglycemia (principal)
CPT/HCPCS: 82043; 82570

== ENCOUNTER → 2024-08-03 | Outpatient (CLI) | payer MEDICARE, SELFPAY ==
[2023-01-19 07:47] VITALS: BMI 45.8
[2024-08-03 16:29] LABS: Anion Gap 13 (5-15); BUN 22 mg/dL (4-19); BUN/Creat Ratio 21.7 RATIO (10-20); Calcium,Total 9.5 mg/dL (7.6-11.0); Carbon Dioxide 26.1 mmol/L (21.0-32.0); Chloride 100 mmol/L (98-108); Creatinine, Serum 1.03 mg/dL (0.70-1.20); EST Glomerular Filtration Rate 84 (>60); Glucose 174 mg/dL (70-99); Potassium 4.2 mmol/L (3.3-5.1); Sodium Level 138 mmol/L (133-145)
[2024-08-03 17:53] LABS: Protein, Urine (Random) 11.5 mg/dL (0.0-12.0); Protein:Creat Ratio 162 mg/g CRE (0-200)
== END | disposition home or self-care (01) ==
LOC: MFPLAB 09:43
PROVIDERS: PCP Family Medicine; Visit Provider Internal Medicine Nephrology
DX: N18.2 Chronic kidney disease, stage 2 (mild) (principal)
CPT/HCPCS: 36415; 80048; 82570; 84156

== ENCOUNTER → 2024-08-29 | Outpatient (CLI) | payer MEDICARE, SELFPAY ==
[2023-01-19 07:47] VITALS: BMI 45.8
[2024-08-29 10:42] LABS: Hematocrit 41.9 % (40-54); Hemoglobin 13.3 g/dL (13.0-16.5); Mean Corp Hgb Conc 31.7 g/dL (32-36); Mean Corpuscular Hgb 27.8 pg (27.0-32.0); Mean Corpuscular Volume 87.7 fL (80-94); Mean Platelet Vol. 10.3 fl (6.2-12.0); Platelet Count 189 K/mm3 (150-450); RBC Distribution Width CV 17.2 % (11.6-14.6); RBC Distribution Width SD 54.4 fl (35.1-43.9); Red Blood Count 4.78 M/mm3 (4.6-6.2); White Blood Count 5.8 K/mm3 (4.4-11.0)
[2024-08-29 11:22] LABS: PTHIN 58 pg/mL (11-61)
[2024-08-29 11:40] LABS: Cholesterol 102 mg/dL (<=200); High Density Lipoprotein 28 mg/dL; Low Density Lipoprotein Calc. 24 mg/dL; Triglycerides 255 mg/dL; Very Low Density Lipoprotein 51 mg/dL (5-40); Vitamin D,25 Hydroxy 50.7 ng/mL (30-100); cholesterol:hdl ratio screen 3.71
[2024-08-29 11:55] LABS: Iron 54 ug/dL (65-175)
== END | disposition home or self-care (01) ==
LOC: MFPLAB 09:24
PROVIDERS: PCP Family Medicine; Referring Provider Family Medicine; Visit Provider Family Medicine
DX: E11.22 Type 2 diabetes mellitus with diabetic chronic kidney disease (principal); E11.65 Type 2 diabetes mellitus with hyperglycemia; N18.30 Chronic kidney disease, stage 3 unspecified
CPT/HCPCS: 36415; 80061; 82306; 83540; 83970; 84403; 85027

== ENCOUNTER 2024-10-18 08:07 | Outpatient (CLI) | payer MEDICARE, SELFPAY ==
[2023-01-19 07:47] VITALS: BMI 45.8
== END 2024-10-18 23:59 | disposition home or self-care (01) ==
PROVIDERS: PCP Family Medicine; Referring Provider Nurse Practitioner Acute Care; Visit Provider Nurse Practitioner Acute Care
DX: R50.9 Fever, unspecified (principal)
CPT/HCPCS: 87631

== ENCOUNTER → 2024-11-27 | Outpatient (CLI) | payer MEDICARE, SELFPAY ==
[2023-01-19 07:47] VITALS: BMI 45.8
--- NOTE | 2024-11-27 13:51 | CT_ITS ---
PROCEDURE: LOW DOSE CT LUNG SCREENING 11/27/2024 REASON FOR EXAM: HISTORY OF SMOKING, QUIT 2018 Patient has smoked 2-1/2 packs per day for 25 years. TECHNIQUE: LOW DOSE CT LUNG SCREENING Coronal and Sagittal reconstruction series were provided. One or more dose reduction techniques were used (e.g., Automated exposure control, adjustment of the mA and/or kV according to patient size, use of iterative reconstruction technique). REFERENCE LINK: [facility] Lung-RADS RADIATION DOSE SUMMARY: CTDlvol: 4.02 mGy DLP: 162.05 mGycm COMPARISON: None FINDINGS: PULMONARY NODULES: (Only nodules >3mm are reported) Nodules described below are on series 1 unless otherwise specified. Pulmonary Nodules: No suspicious pulmonary nodules are seen. Hardware:None Lymph Nodes:Small benign-appearing mediastinal lymph nodes. Heart and Vasculature:The heart is not enlarged. Coronary Artery Calcifications: Present Lungs and Airways: No suspicious nodules are seen. Pleura:Unremarkable Upper Abdomen:Unremarkable Bones:Degenerative changes of the thoracic spine. CT/Low Dose CT Lung Screening IMPRESSION: No suspicious pulmonary nodule seen. Coronary artery calcification (CAC) is is present Lung-RADS Category: 2 BENIGN (BASED ON IMAGING FEATURES OR INDOLENT BEHAVIOR). RECOMMEND 12-MONTH SCREENING LDCT. Other Significant Findings: Reading Location: [id number]
== END | disposition home or self-care (01) ==
LOC: CT 13:51
PROVIDERS: PCP Family Medicine; Referring Provider Nurse Practitioner Family; Visit Provider Nurse Practitioner Family
DX: F17.210 Nicotine dependence, cigarettes, uncomplicated (principal)
CPT/HCPCS: 71271

== ENCOUNTER 2024-12-25 08:44 | Outpatient (RCR) | payer MEDICARE, SELFPAY ==
[2023-01-19 07:47] VITALS: BMI 45.8
== END 2025-01-09 23:59 ==
LOC: NS 08:44
PROVIDERS: PCP Family Medicine; Referring Provider Family Medicine; Visit Provider Family Medicine
DX: Z71.3 Dietary counseling and surveillance (principal); E11.40 Type 2 diabetes mellitus with diabetic neuropathy, unspecified; E66.01 Morbid (severe) obesity due to excess calories; Z68.41 Body mass index [BMI] 40.0-44.9, adult
CPT/HCPCS: 97802

== ENCOUNTER → 2025-01-09 | Outpatient (CLI) | payer MEDICARE, SELFPAY ==
[2023-01-19 07:47] VITALS: BMI 45.8
== END | disposition home or self-care (01) ==
LOC: SL 11:37
PROVIDERS: PCP Family Medicine; Visit Provider Nurse Practitioner Family
DX: G47.33 Obstructive sleep apnea (adult) (pediatric) (principal)
CPT/HCPCS: 98960; G0463

== ENCOUNTER → 2025-02-07 | Outpatient (CLI) | payer MEDICARE, SELFPAY ==
[2023-01-19 07:47] VITALS: BMI 45.8
[2025-02-07 10:44] LABS: Anion Gap 12 (5-15); BUN 21 mg/dL (4-19); BUN/Creat Ratio 20.5 RATIO (10-20); Calcium,Total 9.3 mg/dL (7.6-11.0); Carbon Dioxide 32.1 mmol/L (21.0-32.0); Chloride 95 mmol/L (98-108); Glucose 208 mg/dL (70-99); Potassium 3.3 mmol/L (3.3-5.1)
[2025-02-07 10:51] LABS: Creatinine, Urine (random) 23.90 mg/dL (39.00-259.00); Protein, Urine (Random) 12.7 mg/dL (0.0-12.0); Protein:Creat Ratio 531 mg/g CRE (0-200)
== END | disposition home or self-care (01) ==
LOC: MFPLAB 08:09
PROVIDERS: PCP Family Medicine; Visit Provider Internal Medicine Nephrology
DX: N18.2 Chronic kidney disease, stage 2 (mild) (principal)
CPT/HCPCS: 36415; 80048; 82570; 84156

== ENCOUNTER 2025-02-12 10:28 | Outpatient (RCR) | payer MEDICARE, SELFPAY ==
[2023-01-19 07:47] VITALS: BMI 45.8
== END 2025-03-11 23:59 ==
LOC: NS 10:28
PROVIDERS: PCP Family Medicine; Referring Provider Family Medicine; Visit Provider Family Medicine
DX: Z71.3 Dietary counseling and surveillance (principal); E11.40 Type 2 diabetes mellitus with diabetic neuropathy, unspecified; E66.01 Morbid (severe) obesity due to excess calories; Z68.41 Body mass index [BMI] 40.0-44.9, adult
CPT/HCPCS: 97803

== ENCOUNTER → 2025-02-15 | Outpatient (CLI) | payer MEDICARE, SELFPAY ==
[2023-01-19 07:47] VITALS: BMI 45.8
[2025-02-15 10:46] LABS: Hematocrit 43.0 % (40-54); Hemoglobin 13.9 g/dL (13.0-16.5); Mean Corp Hgb Conc 32.3 g/dL (32-36); Mean Corpuscular Volume 87.6 fL (80-94); Mean Platelet Vol. 10.0 fl (6.2-12.0); Platelet Count 184 K/mm3 (150-450); RBC Distribution Width CV 16.5 % (11.6-14.6); RBC Distribution Width SD 51.9 fl (35.1-43.9); Red Blood Count 4.91 M/mm3 (4.6-6.2); White Blood Count 5.6 K/mm3 (4.4-11.0)
[2025-02-15 13:52] LABS: CRP 6.03 mg/L (0.0-3.0); Cholesterol 109 mg/dL (<=200); Low Density Lipoprotein Calc. 36 mg/dL; Magnesium 2.4 mg/dL (1.5-2.2); Triglycerides 298 mg/dL; Very Low Density Lipoprotein 60 mg/dL (5-40); Vitamin D,25 Hydroxy 45.2 ng/mL (30-100); cholesterol:hdl ratio screen 3.95
[2025-02-16 08:09] LABS: ANTINUCLEAR ANTIBODIES DIRECT Negative (Negative)
== END | disposition home or self-care (01) ==
LOC: MFPLAB 09:22
PROVIDERS: PCP Family Medicine; Visit Provider Family Medicine
DX: G62.9 Polyneuropathy, unspecified (principal); E11.40 Type 2 diabetes mellitus with diabetic neuropathy, unspecified
CPT/HCPCS: 36415; 80061; 82306; 83735; 84403; 84443; 85027; 85652; 86038; 86140